=== PATIENT | male | born 1955 | race Caucasian/White ===

== ENCOUNTER → 2016-03-29 | Outpatient (CLI) | payer BC ==
[~2016-03-29] MED LIST: ASPI-266 PO; ASPI81TA28 PO; DYZ PO; INSDGI SC; LISI-725 PO; LORA-741 PO; LVMI SC; METF1000 PO; MULT-506 PO; NVLG SC; NVLGI SC; OPTIRAY 320 IV PRN; SIMV20TA5 PO; TRAZ50TA35 PO; TRIA37.5 PO
--- NOTE | 2016-03-29 11:15 | DIAGNOSTIC IMAGING REPORT ---
CT ANGIOGRAM OF THE CHEST CLINICAL HISTORY: Dilated aortic root. COMPARISON STUDY: Chest radiographs dated 11/03/2009. TECHNIQUE: Following the IV administration of 93 cc of Optiray 320, CT angiogram of the chest was performed from the thoracic inlet to the upper abdomen. Images are reviewed in the axial, sagittal, and coronal planes. 3-D MIPS images are created and assessed. IV contrast was administered without complication. FINDINGS: Thyroid: Imaged portions of the thyroid gland are normal in size and attenuation. Thoracic aorta: The thoracic aorta is normal in caliber and demonstrates standard 3-vessel arch anatomy. No dissection is seen. The arch branches are widely patent. Heart: The heart is enlarged and without pericardial effusion. The main pulmonary arteries are mildly dilated suggesting pulmonary hypertension. Lungs and pleural spaces: There is a 4 mm pulmonary nodule in the right middle lobe seen on image #216. Scattered calcified granulomas are identified. There is no airspace consolidation or pleural effusion. The trachea and central airways are clear. Mediastinum: There is no mediastinal lymphadenopathy. Neena: There are small calcified hilar lymph nodes. Axillae: There is no axillary lymphadenopathy. Upper abdomen: Partially visualized upper abdominal viscera is within normal limits. Skeletal structures: The skeletal structures are osteopenic. No lytic or blastic bony lesions are seen. Arthritic change is present in the shoulders. Chronic posttraumatic deformity is questioned the distal left clavicle. There are mild and age indeterminant superior endplate compression deformities of T2, T3, and T4. IMPRESSION: 1. Unremarkable CT angiogram of the thoracic aorta. 2. Cardiomegaly. 3. There is no airspace consolidation or pleural effusion. 4. There is a 4 mm right middle lobe pulmonary nodule. This is indeterminant but of low suspicion and can be followed if clinically warranted. See below. 5. Additional changes as above. Please refer to below summary of Fleischner criteria recommendations for follow-up of incidental CT nodules (Juaquin Draper, Guidelines for management of small pulmonary nodules detected on CT scans: A statement from the Fleischner Society, Radiology 237: [phone].) Low Risk Patient: Minimal or no smoking or other known risk factors for malignancy <=4 mm: No follow-up needed. >4-6 mm: Initial follow-up CT at 12 months; if unchanged, no further follow-up. >6-8 mm: Initial follow-up CT at 6-12 months then at 18-24 months if no change. >8 mm: Follow-up CT at \R\3, 9, 24 months, or PET and/or biopsy. High Risk Patient: History of smoking or other known risk factors <=4 mm: Follow-up at 12 months; if unchanged, no further follow-up. >4-6 mm: Initial follow-up CT at 6-12 months then at 18-24 months if no change. >6-8 mm: Initial follow-up CT at 3-6 months then at 9-12 and 24 months if no change. >8 mm: Same as low risk patient. Note: Nodule size measured as average of length and width. Ground glass or partly solid nodules may require longer follow-up to exclude indolent adenocarcinoma. Electronically signed by: Brenton Cid M.D. 03/29/2016 11:13 AM Dictated Date/Time: 03/29/2016 11:05 AM
== END | disposition home or self-care (01) ==
LOC: C.CTS 10:11
PROVIDERS: ATTEND Family Medicine
DX: I77.810 Thoracic aortic ectasia (principal); I51.7 Cardiomegaly; R91.1 Solitary pulmonary nodule

== ENCOUNTER → 2016-05-18 | Outpatient (CLI) | payer BC ==
[~2016-05-18] MED LIST changes: -OPTIRAY 320 IV PRN
[2016-05-18 12:31] LABS: ESTIMATED AVERAGE GLUCOSE 177 mg/dl; HA1C FLAG Normal (Normal)
[2016-05-18 13:42] LABS: ALKALINE PHOSPHATASE 92 U/L (45-117); ALT/SGPT 26 U/L (12-78); AST/SGOT 16 U/L (15-37); BLOOD UREA NITROGEN 13 mg/dl (7-18); BUN/CREATININE RATIO 13.9 (10-20); CALCIUM 9.2 mg/dl (8.5-10.1); CARBON DIOXIDE 26 mmol/L (21-32); CHLORIDE 106 mmol/L (98-107); CHOLESTEROL 154 mg/dl (0-200); CHOLESTEROL/HDL RATIO 3.2; CREATININE 0.93 mg/dl (0.60-1.40); GLUCOSE 111 mg/dl (70-99); HDL CHOLESTEROL 48 mg/dl; LDL CHOLESTEROL CALCULATED 87 mg/dl; POTASSIUM 3.7 mmol/L (3.5-5.1); SODIUM 139 mmol/L (136-145); TRIGLYCERIDES 96 mg/dl (0-150); VERY LOW DENSITY LIPOPROT CALC 19 mg/dl
== END | disposition home or self-care (01) ==
LOC: C.LABPVFM 08:39
PROVIDERS: ATTEND Family Medicine
DX: I10 Essential (primary) hypertension (principal); F41.9 Anxiety disorder, unspecified; E03.9 Hypothyroidism, unspecified; E11.65 Type 2 diabetes mellitus with hyperglycemia

== ENCOUNTER 2016-06-01 23:14 | Emergency (ER) | payer BC ==
[~2016-06-01] VITALS: Ht 180.3 cm; Wt 118.1 kg
[~2016-06-01 23:14] MED LIST changes: -ASPI81TA28 PO; -LVMI SC; -NVLG SC; -TRAZ50TA35 PO; -TRIA37.5 PO
[2016-06-01 23:44] VITALS: Ht 180.3 cm; Wt 118.1 kg
[2016-06-01 23:49] LABS: BASO % 0.2 %; BASO ABS # 0.02 K/uL (0-0.2); COMPLETE YES; EOS % 0.8 %; HEMATOCRIT 42.1 % (42-52); IG% 0.3 %; LYMPH % 9.8 %; LYMPH ABS # 0.99 K/uL (1.2-3.4); MEAN CELL VOLUME 83.5 fL (80-100); MEAN CORPUSCULAR HEMOGLOBIN 30.8 pg (25-34); MEAN CORPUSCULAR HGB CONC 36.8 g/dl (32-36); MONO % 8.4 %; NEUT % 80.5 %; PLATELET COUNT 182 K/uL (130-400); RED BLOOD COUNT 5.04 M/uL (4.7-6.1); WHITE BLOOD COUNT 10.14 K/uL (4.8-10.8)
[2016-06-02 00:12] LABS: BUN/CREATININE RATIO 15.5 (10-20); CALCIUM 9.1 mg/dl (8.5-10.1); CREATININE 1.1 mg/dl (0.60-1.40); POTASSIUM 3.5 mmol/L (3.5-5.1)
[2016-06-02 00:40] VITALS: BP 159/98; PULSE 74; O2SAT 98
[2016-06-02] MEDS ORDERED: ASPI81TA28 PO (00:48)
[2016-06-02] MEDS ORDERED: TRIA37.5 PO (00:48)
[2016-06-02] MEDS ORDERED: LVMI SC (00:48)
[2016-06-02] MEDS ORDERED: NVLG SC (00:48)
[2016-06-02] MEDS ORDERED: TRAZ50TA35 PO (00:51)
--- NOTE | 2016-06-02 01:33 | EMERGENCY ROOM VISIT NOTE ---
History Report prepared by Delmis: Sophie Gould Under the Supervision of: Dr. Leonel Biggs M.D. First contact with patient: 23:22 Chief Complaint: HYPOGLYCEMIA Stated Complaint: HYPOGLYCEMIA History of Present Illness The patient is a 61 year old male who presents to the Emergency Room with complaints of constant hypoglycemia beginning [employer]. The patient was in the hospital all day visiting someone upstairs. He left at 9pm and was going to get something to eat because he had not eaten since 2pm. He ended up being so confused while driving that he drove in the opposite direction than he intended. Someone called the police because the patient was driving slow and erratically. When EMS arrived, they found the patient eating icing that he had in his glove compartment. His BSG was 32 at that time. He was given D10 IV en route to the ED and states that he is feeling much better now. He reports some dizziness. The patient denies chest pain and fever. He has a history of IDDM. He was not ill prior to these events. 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 Review of Systems See HPI for pertinent positives & negatives. A total of 10 systems reviewed and were otherwise negative. Past Medical & Surgical Medical Problems: (1) Diabetes Family History Depression Heart disease Social History Smoking Status: Never Smoker Smokeless Tobacco Use: Yes Alcohol Use: occasionally Marital Status: single Housing Status: lives alone Occupation Status: employed Current/Historical Medications Scheduled Aspirin (Aspirin Ec), 81 MG PO DAILY Insulin Aspart (Novolog), 20 UNITS SC TIDM Insulin Detemir (Levemir), 50 UNITS SC QPM Lisinopril (Zestril), 20 MG PO DAILY Metformin Hcl (Glucophage), 1,000 MG PO BIDM Multivitamin (Multivitamin), 1 TABLET PO DAILY Simvastatin (Zocor), 20 MG PO QPM Trazodone Hcl (Trazodone), 50 MG PO HS Triamterene/Hctz (Dyazide 37.5MG/25MG), 1 CAP PO DAILY Allergies Coded Allergies: No Known Allergies (Unverified , 3/17/17) Physical Exam Vital Signs Date Time Temp Pulse Resp B/P Pulse Ox O2 Delivery O2 Flow Rate FiO2 06/02/16 00:40 74 20 159/98 98 Room Air 06/01/16 23:44 75 20 182/117 99 Room Air Physical Exam Constitutional: Vital signs reviewed. Hypertensive. Eyes: Pupils are equal round reactive to light. Conjunctiva are noninjected. ENT: Pharynx is clear without erythema or exudate. Mucous membranes are moist. Neck supple without meningeal signs. Respiratory: Clear to auscultation bilaterally. Breath sounds are equal bilaterally. Cardiovascular: Regular rate and rhythm. No rubs or gallops. GI: Soft, nondistended and nontender. Bowel sounds are present. Musculoskeletal: No peripheral edema. No lower extremity tenderness. Integumentary: No cyanosis. Neurological: The patient is awake and alert. No focal deficits. Psychiatric: Normal affect. Medical Decision & Procedures Laboratory Results 06/01/16 23:40 Red Blood Count 5.04, Mean Corpuscular Volume 83.5, Mean Corpuscular Hemoglobin 30.8, Mean Corpuscular Hemoglobin Concent 36.8, Mean Platelet Volume 9.0, Neutrophils (%) (Auto) 80.5, Lymphocytes (%) (Auto) 9.8, Monocytes (%) (Auto) 8.4, Eosinophils (%) (Auto) 0.8, Basophils (%) (Auto) 0.2, Neutrophils # (Auto) 8.17, Lymphocytes # (Auto) 0.99, Monocytes # (Auto) 0.85, Eosinophils # (Auto) 0.08, Basophils # (Auto) 0.02 06/01/16 23:40 Test 06/01/16 23:40 06/02/16 00:48 White Blood Count 10.14 K/uL (4.8-10.8) Red Blood Count 5.04 M/uL (4.7-6.1) Hemoglobin 15.5 g/dL (14.0-18.0) Hematocrit 42.1 % (42-52) Mean Corpuscular Volume 83.5 fL (80-100) Mean Corpuscular Hemoglobin 30.8 pg (25-34) Mean Corpuscular Hemoglobin Concent 36.8 g/dl (32-36) Platelet Count 182 K/uL (130-400) Mean Platelet Volume 9.0 fL (7.4-10.4) Neutrophils (%) (Auto) 80.5 % Lymphocytes (%) (Auto) 9.8 % Monocytes (%) (Auto) 8.4 % Eosinophils (%) (Auto) 0.8 % Basophils (%) (Auto) 0.2 % Neutrophils # (Auto) 8.17 K/uL (1.4-6.5) Lymphocytes # (Auto) 0.99 K/uL (1.2-3.4) Monocytes # (Auto) 0.85 K/uL (0.11-0.59) Eosinophils # (Auto) 0.08 K/uL (0-0.5) Basophils # (Auto) 0.02 K/uL (0-0.2) RDW Standard Deviation 38.9 fL (36.4-46.3) RDW Coefficient of Variation 12.9 % (11.5-14.5) Immature Granulocyte % (Auto) 0.3 % Immature Granulocyte # (Auto) 0.03 K/uL (0.00-0.02) Anion Gap 9.0 mmol/L (3-11) Est Creatinine Clear Calc Drug Dose 92.2 ml/min Estimated GFR () 83.5 Estimated GFR (Non- 72.1 BUN/Creatinine Ratio 15.5 (10-20) Calcium Level 9.1 mg/dl (8.5-10.1) Chemistry Specimen Hemolysis Bedside Glucose 236 mg/dl (70-99) Laboratory results as reviewed by me. ECG Indication: altered mental status Rate (beats per minute): 67 Rhythm: sinus rhythm Findings: PAC, RBBB Comparison ECG Date: 10/06/2013 Change: no significant change ED Course 2322: The patient was evaluated in room B2. A complete history and physical exam was performed. 0031: I reassessed the patient at this time. He is feeling better and resting comfortably. His BP is 159/98 and he has eaten a meal since arriving in the department. I discussed the results and treatment plan with the patient. I answered all pertaining questions that he had. He expressed understanding and verbalized agreement. The patient will be discharged home. Medical Decision This is a 61-year-old male who presents with hypoglycemia. I did perform a limited focused review of portions of the patient's old chart on the electronic medical record. The patient has had no recent pertinent visits to this hospital. I did evaluate the patient as noted above. The patient was placed on a continuous environmental monitoring specialist. The patient is neurologically intact. He is hypertensive but states that his blood pressure always goes up when he chews tobacco. He states he has had the same problem when he went to his doctor's office and was chewing tobacco. The chewing tobacco was removed from his mouth. He was not involved in a motor vehicle collision. EMS stated that there was no damage to his car. He was found driving erratically by the police. His blood sugar was 32 on EMS arrival. He was given a meal tray here. I did order and personally review the patient's 12-lead EKG as described above. I did order and review the patient's blood work as noted in the electronic medical record. His blood sugar did improve. He has no complaints and was therefore discharged home. He will eat regular meals. He will follow with his doctor. His blood pressure also did improve. Impression Primary Impression: Hypoglycemia Additional Impression: Elevated blood pressure reading Scribe Attestation The scribe's documentation has been prepared under my direct and personally reviewed by me in its entirety. I confirm that the note above accurately reflects all work, treatment, procedures, and medical decision making performed by me. Departure Information Dispostion Home / Self-Care Referrals Edith Salgado M.D. (PCP) Forms HOME CARE DOCUMENTATION FORM, IMPORTANT VISIT INFORMATION, WORK / SCHOOL INSTRUCTIONS Patient Instructions ED Diabetes Hypoglycemia Insulin React, My [facility] Additional Instructions You have been examined and treated today on an emergency basis only. This is not a substitute for, or an effort to provide, complete comprehensive medical care. It is impossible to recognize and treat all injuries or illnesses in a single emergency department visit. It is therefore important that you follow up closely with your physician. Call as soon as possible for an appointment. Return for worsening symptoms or if you develop fever, vomiting, chest pain, shortness breath or any other concerning symptoms. Problem Qualifiers
== END 2016-06-02 01:00 | disposition home or self-care (01) ==
LOC: EDBD 23:14 → C.EDB 23:17
DX: E11.649 Type 2 diabetes mellitus with hypoglycemia without coma (principal); R03.0 Elevated blood-pressure reading, without diagnosis of hypertension; Z79.82 Long term (current) use of aspirin; Z79.4 Long term (current) use of insulin

== ENCOUNTER → 2016-10-20 | Outpatient (CLI) | payer BC ==
[~2016-10-20] MED LIST changes: -ASPI-266 PO; +ASPI81TA28 PO; -DYZ PO; -INSDGI SC; -LORA-741 PO; +LVMI SC; +NVLG SC; -NVLGI SC; +TRAZ50TA35 PO; +TRIA37.5 PO
[2016-10-20 13:25] LABS: ALT/SGPT 25 U/L (12-78); AST/SGOT 11 U/L (15-37); BLOOD UREA NITROGEN 14 mg/dl (7-18); BUN/CREATININE RATIO 13.7 (10-20); CALCIUM 8.8 mg/dl (8.5-10.1); CARBON DIOXIDE 28 mmol/L (21-32); CHLORIDE 105 mmol/L (98-107); GLUCOSE 166 mg/dl (70-99); POTASSIUM 3.6 mmol/L (3.5-5.1); SODIUM 139 mmol/L (136-145)
[2016-10-20 13:30] LABS: ESTIMATED AVERAGE GLUCOSE 229 mg/dl; HA1C FLAG Normal (Normal)
[2016-10-20 13:36] LABS: ALB/GLOB RATIO 1.1 (0.9-2); ALKALINE PHOSPHATASE 110 U/L (45-117); CHOLESTEROL 131 mg/dl (0-200); CHOLESTEROL/HDL RATIO 2.8; HDL CHOLESTEROL 46 mg/dl; LDL CHOLESTEROL CALCULATED 68 mg/dl; TRIGLYCERIDES 83 mg/dl (0-150); VERY LOW DENSITY LIPOPROT CALC 17 mg/dl
== END | disposition home or self-care (01) ==
LOC: C.LABPVFM 10:23
PROVIDERS: ATTEND Nurse Practitioner Adult Health
DX: E11.65 Type 2 diabetes mellitus with hyperglycemia (principal); Z79.4 Long term (current) use of insulin; I10 Essential (primary) hypertension; F41.9 Anxiety disorder, unspecified; E03.9 Hypothyroidism, unspecified; G47.00 Insomnia, unspecified

== ENCOUNTER → 2017-03-26 | Outpatient (CLI) | payer BC ==
[2017-03-26 13:09] LABS: HEMOGLOBIN A1C 9.4 % (4.5-5.6)
[2017-03-26 13:34] LABS: ALBUMIN 3.9 gm/dl (3.4-5.0); ALKALINE PHOSPHATASE 108 U/L (45-117); ALT/SGPT 28 U/L (12-78); AST/SGOT 11 U/L (15-37); BLOOD UREA NITROGEN 21 mg/dl (7-18); CALCIUM 9.9 mg/dl (8.5-10.1); CARBON DIOXIDE 28 mmol/L (21-32); CREATININE 1.28 mg/dl (0.60-1.40); GLUCOSE 251 mg/dl (70-99); POTASSIUM 3.7 mmol/L (3.5-5.1); SODIUM 136 mmol/L (136-145)
== END | disposition home or self-care (01) ==
LOC: C.LABPVFM 11:12
PROVIDERS: ATTEND Family Medicine
DX: E11.9 Type 2 diabetes mellitus without complications (principal); Z79.4 Long term (current) use of insulin; E03.9 Hypothyroidism, unspecified; I10 Essential (primary) hypertension; E78.5 Hyperlipidemia, unspecified; G47.00 Insomnia, unspecified

== ENCOUNTER → 2017-04-02 | Outpatient (CLI) | payer BC ==
[~2017-04-02] MED LIST changes: +OPTIRAY 320 IV PRN
--- NOTE | 2017-04-02 11:29 | DIAGNOSTIC IMAGING REPORT ---
(CHEST) THORAX WITH CT DOSE: 650.52 mGy.cm HISTORY: Pulmonary nodule R91.1 Pulmonary [id number] TECHNIQUE: Multiaxial CT images of the chest were performed following the intravenous administration of contrast. A dose lowering technique was utilized adhering to the principles of ALARA. COMPARISON: 03/29/2016 FINDINGS: Unchanged exam from the prior study. Unchanged 4 mm pulmonary nodule right middle lobe. No new or interval finding. No significant hilar or mediastinal kajal pathology. IMPRESSION: Unchanged exam with unchanging nodularity right middle lobe. Routine follow-up is indicated. Please refer to below summary of Fleischner criteria recommendations for follow-up of incidental CT nodules (Juaquin Draper, Guidelines for management of small pulmonary nodules detected on CT scans: A statement from the Fleischner Society, Radiology 237: [phone].) SOLID NODULES Solitary nodule size: <6 mm * low risk patients: no follow-up needed * high risk patients: optional CT at 12 months Solitary nodule size: 6-8 mm * low risk patients: follow-up at 6-12 months, then consider further follow-up at 18-24 months * high risk patients: initial follow-up CT at 6-12 months and then at 18-24 months if no change Solitary nodule size: >8 mm * either low or high risk patients - consider follow-up CT at 3 months, and/or CT-PET, and/or biopsy Multiple nodules size: <6 mm * low risk patients: no routine follow-up * high risk patients: optional CT at 12 months Multiple nodules size: 6-8 mm * low risk patients: follow-up at 3-6 months, then consider further follow-up at 18-24 months * high risk patients: follow-up at 3-6 months, then at 18-24 months if no change Multiple nodules size: >8 mm * low risk patients: follow-up at 3-6 months, then consider further follow-up at 18-24 months * high risk patients: follow-up at 3-6 months, then at 18-24 months if no change Note: newly detected indeterminate nodule in persons 35 years of age or older. * low risk patients: minimal or absent history of smoking and/or other known risk factors * high risk patients: history of smoking or of other known risk factors (e.g. first degree relative with lung cancer, or exposure to asbestos, radon, uranium) * if a nodule up to 8 mm is partly solid or is ground glass further follow-up is required after 24 months to exclude possible slow growing adenocarcinoma (RYNE) SUBSOLID NODULES Solitary pure ground-glass nodule * nodule size <6 mm - no CT follow-up required * nodule size >=6 mm - follow-up CT at 6-12 months, then every 2 years until 5 years Solitary part-solid nodule * nodule size <6 mm - no CT follow-up required * nodule size >=6 mm - follow-up CT at 3-6 months. If unchanged, and solid component remains <6 mm, then annual follow-up for 5 years Multiple subsolid nodules * nodule size <6 mm - follow-up CT at 3-6 months, consider further follow-up at 2 and 4 years if stable * nodule size >=6 mm - follow-up CT at 3-6 months, subsequent management based on the most suspicious nodule(s) The above report was generated using voice recognition software. It may contain grammatical, syntax or spelling errors. Electronically signed by: Geraldo Leon M.D. 04/02/2017 11:27 AM Dictated Date/Time: 04/02/2017 11:21 AM
== END | disposition home or self-care (01) ==
LOC: C.CTS 11:03
PROVIDERS: ATTEND Family Medicine
DX: R91.1 Solitary pulmonary nodule (principal)

== ENCOUNTER → 2017-04-04 | Outpatient (CLI) | payer BC ==
[~2017-04-04] MED LIST changes: -OPTIRAY 320 IV PRN
[2017-04-04 13:17] LABS: BLOOD UREA NITROGEN 18 mg/dl (7-18); CALCIUM 9.3 mg/dl (8.5-10.1); CARBON DIOXIDE 22 mmol/L (21-32); CREATININE 1.28 mg/dl (0.60-1.40); GLUCOSE 380 mg/dl (70-99); POTASSIUM 3.9 mmol/L (3.5-5.1); SODIUM 137 mmol/L (136-145)
== END | disposition home or self-care (01) ==
LOC: C.LABPVFM 10:13
PROVIDERS: ATTEND Family Medicine
DX: E11.9 Type 2 diabetes mellitus without complications (principal); Z79.4 Long term (current) use of insulin

== ENCOUNTER 2020-07-16 13:51 | Inpatient (IN) ==
--- NOTE | 2020-07-16 15:05 | XRay Report ---
XR knee RT 3V CLINICAL HISTORY: Right Knee Pain [place] view 3, D07 COMPARISON STUDY: None. FINDINGS: Extensive prepatellar soft tissue swelling. No soft tissue gas identified. Trace knee effus ion. No fracture or dislocation. Tiny tricompartmental marginal osteophytes. Cartilage spaces are joshua ntained for age. IMPRESSION: 1. Extensive prepatellar soft tissue swelling. This could represent a prepatellar bursitis or recent trauma. 2. Trace knee effusion. 3. No fractures. ACT 112: Negative or not required by law. Electronically signed by: José Miguel Aldridge M.D. 07/16/2020 3:04 PM
[2020-07-16] MEDS ORDERED: cefTRIAXone SODIUM 2,000 MG/70 ML BAG IV STA (15:38)
[2020-07-16] MEDS ORDERED: SODIUM CHLORIDE 0.9% 1000ML 1,000 ML IV SCH (15:45)
[2020-07-16 16:26] LABS: Basophils # (auto) 0.02 K/uL (0-0.2); Basophils % (auto) 0.2 %; Eosinophils # (auto) 0.03 K/uL (0-0.5); Eosinophils % (auto) 0.3 %; Hematocrit (blood only) 40.2 % (42-52); Hemoglobin 14.3 g/dL (14.0-18.0); Immature Granulocytes # (auto) 0.02 K/uL (0.00-0.02); Immature Granulocytes % (auto) 0.2 %; Lymphocytes # (auto) 1.45 K/uL (1.2-3.4); Lymphocytes % (auto) 15.7 %; Mean Corpuscular Hemoglobin 30.8 pg (25-34); Mean Corpuscular Hgb Conc 35.6 g/dL (32-36); Mean Corpuscular Volume 86.6 fL (80-100); Mean Platelet Volume 9.5 fL (7.4-10.4); Monocytes # (auto) 0.76 K/uL (0.11-0.59); Monocytes % (auto) 8.2 %; Neutrophils # (auto) 6.95 K/uL (1.4-6.5); Neutrophils % (auto) 75.4 %; Platelet Count 256 K/uL (130-400); RDW Coefficient of Variation 12.5 % (11.5-14.5); RDW Standard Deviation 39.8 fL (36.4-46.3); Red Blood Count 4.64 M/uL (4.7-6.1); White Blood Count 9.23 K/uL (4.8-10.8)
[2020-07-16 16:55] LABS: BUN Creatinine Ratio 14.1 (10-20); C Reactive Protein 18.1 mg/dl (0-0.29); Creatinine Clr Calc Pharmacy 71.9 ml/min; Est GFR (African American) 68.9; Est GFR (Non-African American) 59.5; Potassium 3.6 mmol/L (3.5-5.1)
[2020-07-16] MEDS ORDERED: NovoLIN-R INSULIN PER UNIT CHARGE IV STA (16:56)
[2020-07-16 17:10] LABS: Beta-Hydroxybutyrate 8.19 mg/dl (0.2-2.81)
[2020-07-16] MEDS ORDERED: VANCOMYCIN HCL 2,000 MG in SODIUM CHLORIDE 0.9% 500 ML IV ONE (17:27)
[2020-07-16] MEDS ORDERED: VANCOMYCIN CONSULT ACTIVE PRN (17:27)
--- NOTE | 2020-07-16 17:51 | Emergency Department Note ---
Impression & Plan Septic prepatellar bursitis, Cellulitis, Hyperglycemia, Tobacco abuse ED Provider Note INFORMANT: Patient ED PROVIDER(S): Obed Lucia MD CHIEF COMPLAINT: Right knee injury PLAN: Disposition: Admitted Condition: Good Outpatient prescription management: none Referral: None MEDICAL DECISION MAKING: Patient presented with complains of right knee injury. He had findings of cellulitis and likely prepatellar bursitis on examination. Blood work was obtained. X-ray imaging showed a significant amount of soft tissue swelling. His CBC was unremarkable but his inflammatory markers reveal elevated. The patient had marked hyperglycemia. He had pseudohyponatremia. Patient was given IV insulin. IV Rocephin was ordered as well as IV vancomycin. I did consult with Dr. Ballesteros of [facility]. He evaluated the patient in the ER. He would like medicine to admit the patient due to the severe hyperglycemia. He agreed to the IV antibiotics. He plans to take the patient to the OR tomorrow for definitive treatment. Consultation was made with the [facility] list service. Patient was evaluated in ER for further management. Triage Nursing notes reviewed and agree them. Vital Signs: reviewed and remarkable for borderline tachycardia Differential diagnosis: Cellulitis, abscess, MRSA infection, DVT, necrotizing fasciitis, dermatitis, drug eruption, allergic reaction, as well as other pathologies. Diagnostics interpreted by me: ECG: none Cardiac Monitoring: Cardiac monitoring ordered by me: The patient was placed on continuous cardiac monitoring and observed. It revealed a normal sinus rhythm at 112 beats per minute without ectopy or evidence of dysrhythmia. Imaging studies: X-ray ridging of the right knee reveals significant soft tissue swelling. No fracture or dislocation. HPI: The patient is a 65 year old male who presents to the Emergency Room with complaints of right knee injury. This started about 4 days ago or was bit by a spider. He had significant swelling and redness of the anterior aspect of the right knee. Prior history of left knee replacement but no surgery on the right knee. The patient is unsure if he fell. The patient also notes the following associated symptoms, swelling, redness, pain. The patient has taken no medica tion for relieving factors. Current pain is rated as 6/10. Pt denies LOC, headache, fevers, chills, diaphoresis, visual changes, neck pain, chest pain, breathing difficulties, nausea, vomiting, abdominal pain, back pain, melena, hematochezia, urinary symptoms, numbness, weakness, lymphadenopathy, rash, or other complaints. ROS: See above HPI for pertinent positives & negatives. A total of 10 systems reviewed and were otherwise negative. PAST MEDICAL HISTORY:See Below , diabetes PAST SURGICAL HISTORY:See Below, FAMILY HISTORY:See Below SOCIAL HISTORY:See Below, chews tobacco HOME MEDICATIONS:See Below ALLERGIES:See Below VITALS:See Below PHYSICAL EXAMINATION: GENERAL: Awake, alert, mildly uncomfortable-appearing, in no distress HENT: Normocephalic, atraumatic. Oropharynx unremarkable. EYES: Normal conjunctiva. Sclera non-icteric. NECK: Inspection normal. Non-tender. Supple. No nuchal rigidity. FROM. No masses. RESPIRATORY: Clear to auscultation. No wheezes. No rales. Normal respiratory effort. CARDIAC: Borderline tachycardic rate. Normal rhythm. No murmurs. No rubs. Extremities warm and well perfused. Pulses equal. No JVD. GI: Soft, non-distended. No tenderness to palpation. No rebound or guarding. No masses. MUSCULOSKELETAL: There is marked swelling, redness, and tenderness to the anterior aspect of the right knee concerning for cellulitis and possible prepatellar bursitis. Calves are equal size bilaterally and non-tender. No edema. No discoloration. NEURO: Normal sensorium. No sensory or motor deficits noted. SKIN: No rash or jaundice noted. Obed Lucia MD Past Med/Surg History Medical History (Updated 07/16/20 @ 17:54 by Obed Lucia MD) Diabetes History of prostate cancer HTN (hypertension) Surgical History (Updated 07/18/19 @ 08:10 by SATNAM Suazo) History of left knee surgery History of shoulder surgery Left Family History (Updated 07/18/19 @ 08:12 by SATNAM Suazo) Mother Cancer Grandmother (Paternal) Stroke Grandfather (Paternal) Stroke Other Myocardial infarction Denies family history of Ovarian cancer Prostate cancer Breast cancer Colorectal cancer Social History (Updated 10/20/19 @ 10:44 by SATNAM Angel) Smoking Status: Never smoker Second Hand Exposure: No; Hx Alcohol Use: No Hx Substance Use: No marital status: Current Living Situation: Alone current occupational status: employed Feels Safe at Home: Yes Childhood Exposure to Second-Hand Smoke: No caffeine: Yes (iced tea ) Dental Care, Regularly: No Physical Activity Frequency: 1-2 Times per Week Seatbelt Use: always Sunscreen Use: No Allergies Allergies Allergy/AdvReac Type Severity Reaction Status Date / Time No Known Allergies Allergy Unverified 10/20/19 10:41 Home Meds Previous Rx's Medication Instructions Recorded aspirin 81 mg tablet,delayed 81 mg PO DAILY #30 tab 07/09/19 release multivitamin 1 tab PO DAILY #30 tab 07/09/19 clobetasol 0.05 % topical cream 1 appln TOP BID 14 Days #60 gm 07/18/19 fluocinolone 0.01 % scalp oil and See Rx Instructions TOP .COMPLEX 07/18/19 shower cap #118.28 ml blood sugar diagnostic #10 ea 08/19/19 levothyroxine 125 mcg tablet 125 mcg PO DAILY #30 tab 10/20/19 lisinopril 40 mg tablet 40 mg PO DAILY #30 tab 10/20/19 metformin 500 mg tablet,extended 500 mg PO BID #60 tab 10/20/19 release 24hr metoprolol succinate 50 mg capsule 50 mg PO DAILY #30 ea 10/20/19 sprinkle, ext. release 24 hr simvastatin 40 mg tablet 40 mg PO QPM #30 tab 10/20/19 trazodone 50 mg tablet See Rx Instructions .ROUTE 10/20/19 .COMPLEX #30 tab triamterene 37.5 1 cap PO DAILY #30 cap 10/20/19 mg-hydrochlorothiazide 25 mg capsule insulin NPH isoph U-100 human 100 See Rx Instructions SUBCUT QAM #20 03/04/20 unit/mL subcutaneous suspension ml insulin regular human 100 unit/mL 30 unit SUBCUT BID #20 ml 03/04/20 injection solution sodium,potassium,mag sulfates 17.5 See Rx Instructions PO .COMPLEX 06/22/20 gram-3.13 gram-1.6 gram oral soln #354 ml Results & Data (ED) Vital Signs Vital Signs - 24 hr 07/16/20 14:05 07/16/20 16:00 Temperature 36.5 C Temperature Source Oral Pulse Rate 122 H Pulse Rate [Apical] 112 H Pulse Rhythm Regular Pulse Strength Normal Respiratory Rate 20 18 Respiratory Effort / Characteristics Non-Labored Respiratory Depth Normal Respiratory Pattern Regular Blood Pressure [Left Arm] 148/96 H Blood Pressure Mean [Left Arm] 113 Blood Pressure Position Sitting Pulse Oximetry 95 96 Oxygen Delivery Method Room Air Room Air Sepsis Recent Fever Within 48 Hours No Sepsis New/Unexplained Change in Mental Status No Sepsis Action Taken by Nursing No Action Required Laboratory Data Result diagrams: 07/16/20 16:06 07/16/20 16:06 Lab Results 07/16/20 07/16/20 07/16/20 Range/Units 16:06 16:06 16:06 WBC 9.23 (4.8-10.8) K/uL RBC 4.64 L (4.7-6.1) M/uL Hgb 14.3 (14.0-18.0) g/dL Hct 40.2 L (42-52) % MCV 86.6 (80-100) fL MCH 30.8 (25-34) pg MCHC 35.6 (32-36) g/dL RDW Std Deviation 39.8 (36.4-46.3) fL RDW Coeff of Robyn 12.5 (11.5-14.5) % Plt Count 256 (130-400) K/uL MPV 9.5 (7.4-10.4) fL Immature Gran % (Auto) 0.2 % Neut % (Auto) 75.4 % Lymph % (Auto) 15.7 % [place] % (Auto) 8.2 % Eos % (Auto) 0.3 % Baso % (Auto) 0.2 % Neut # (Auto) 6.95 H (1.4-6.5) K/uL Lymph # (Auto) 1.45 (1.2-3.4) K/uL [place] # (Auto) 0.76 H (0.11-0.59) K/uL Eos # (Auto) 0.03 (0-0.5) K/uL Baso # (Auto) 0.02 (0-0.2) K/uL Immature Gran # (Auto) 0.02 (0.00-0.02) K/uL ESR 72 H (0-20) mm/hr Sodium 128 L (136-145) mmol/L Potassium 3.6 (3.5-5.1) mmol/L Chloride 92 L (98-107) mmol/L Carbon Dioxide 32 (21-32) mmol/L Anion Gap 4.0 (3-11) BUN 18 (7-18) mg/dl Creatinine 1.26 (0.6-1.4) mg/dl Est Cr Clr Drug Dosing 71.9 ml/min Est GFR ( Amer) 68.9 Est GFR (Non-Af Amer) 59.5 BUN/Creatinine Ratio 14.1 (10-20) Glucose 628 H* (70-99) mg/dl Calcium 9.0 (8.5-10.1) mg/dl C-Reactive Protein 18.10 H (0-0.29) mg/dl Beta-Hydroxybutyric Acd 8.19 H (0.2-2.81) mg/dl Administered Medications Sodium Chloride (Nss 1000ml) 1,000 mls @ 125 mls/hr IV .Q8H JOSELITO Stop: 07/16/20 23:44 Last Admin: 07/16/20 16:28 Dose: 125 mls/hr Documented by: [id number] Discontinued Medications Ceftriaxone Sodium (Rocephin) 2,000 mg in 70 mls @ 140 mls/hr IV NOW STA Stop: 07/16/20 16:07 Last Admin: 07/16/20 16:28 Dose: 140 mls/hr Documented by: [id number] Insulin Human Regular (Novolin-R Insulin Per Unit Charge) 10 units IV NOW STA Stop: 07/16/20 16:57 Last Admin: 07/16/20 17:03 Dose: 10 units Documented by: [id number] Cosigned by: [id number] Imaging Data Radiologist's Impression: Knee X-Ray 07/16/20 14:08 XR knee RT 3V CLINICAL HISTORY: Right Knee Pain [place] view 3, D07 COMPARISON STUDY: None. FINDINGS: Extensive prepatellar soft tissue swelling. No soft tissue gas identified. Trace knee effusion. No fracture or dislocation. Tiny tricompartmental marginal osteophytes. Cartilage spaces are maintained for age. IMPRESSION: 1. Extensive prepatellar soft tissue swelling. This could represent a prepatellar bursitis or recent trauma. 2. Trace knee effusion. 3. No fractures. ACT 112: Negative or not required by law. Electronically signed by: José Miguel Aldridge M.D. 07/16/2020 3:04 PM Discharge Plan Visit Data Chief Complaint: Knee Injury/Pain Stated Complaint: LEFT KNEE SWOLLEN, UNKNOWN SOURCE ED Provider: Obed Lucia Discharge Problem: Septic prepatellar bursitis, Cellulitis, Hyperglycemia, Tobacco abuse Forms Stand Alone Forms: My [facility] [employer] Prescriptions Prescriptions: No Action aspirin 81 mg tablet,delayed release (DR/EC) 81 mg PO DAILY Qty: 30 RF: 2 multivitamin Tablet 1 tab PO DAILY Qty: 30 RF: 0 (DME) blood sugar diagnostic [Blood Glucose Test] Strip See Rx Instructions .ROUTE .MEDSUPPLY Qty: 10 RF: 0 Novolin R Regular U-100 Insuln 100 unit/mL solution 30 unit subcut BID Qty: 20 RF: 5 Novolin N NPH U-100 Insulin 100 unit/mL suspension See Rx Instructions subcut QAM Qty: 20 RF: 5 Suprep Bowel Prep Kit 17.5-3.13-1.6 gram recon soln See Rx Instructions PO .COMPLEX Qty: 354 RF: 0 fluocinolone and shower cap 0.01 % oil See Rx Instructions TOP .COMPLEX Qty: 118.28 RF: 2 clobetasol 0.05 % cream 1 appln TOP BID 14 Days Qty: 60 RF: 1 levothyroxine 125 mcg tablet 125 mcg PO DAILY Qty: 30 RF: 5 lisinopril 40 mg tablet 40 mg PO DAILY Qty: 30 RF: 5 metformin 500 mg tablet extended release 24hr 500 mg PO BID Qty: 60 RF: 5 simvastatin 40 mg tablet 40 mg PO QPM Qty: 30 RF: 5 trazodone 50 mg tablet See Rx Instructions .ROUTE .COMPLEX Qty: 30 RF: 5 triamterene-hydrochlorothiazid 37.5-25 mg capsule 1 cap PO DAILY Qty: 30 RF: 5 metoprolol succinate 50 mg capsule,sprinkle,ER 24hr 50 mg PO DAILY Qty: 30 RF: 5
[2020-07-16] MEDS ORDERED: METOPROLOL TARTRATE 50 MG TAB PO STA (19:27)
[2020-07-16] MEDS ORDERED: METOPROLOL TARTRATE 1 MG/ML VIAL IV STA (19:27)
[2020-07-16 19:54] LABS: Influenza A virus by PCR Negative (Neg); Influenza B virus by PCR Negative (Neg); RSV by PCR Negative (Neg); SARS CoV2 RNA(COVID-19) InHosp NEGATIVE (Negative)
--- NOTE | 2020-07-16 20:17 | History & Physical Report ---
Date of Service July 16, 2020 Assessment & Plan (1) Septic arthritis: Lars Kumar is a 65-year-old with PMH significant for diabetes, tobacco use, hypothyroidism; who presents to the ED for concerns of right knee pain/swelling over the last several days. Septic arthritis: -Concern for septic arthritis versus septic cellulitis given the appearance of the overlying tissue of the right knee -Elevated ESR, CRP on admission; no elevation of WBCs -XR right knee demonstrating extensive prepatellar effusion -CT right knee demonstrating complex enhancing prepatellar fluid collection with thick septations; concerning for complex bursitis versus abscess -Ortho consulted: Consideration of OR in a.m. -Continue vancomycin, with addition of cefepime given patient's history of diabetes -Blood cultures drawn prior to antibiotics Hyperglycemia: -Glucose on admission of 628 -Beta hydroxybutyrate 8.19 -No anion gap making DKA unlikely at this point time; poor glucose control potentially secondary to infection as above -Received 10 units IV insulin in ED -Hold home Metformin -A1c in a.m. -Sliding scale insulin at this point time Hyponatremia: -Na 128 on admission; with correction for hyperglycemia Na 136 -This is likely secondary to poor glucose control as above -Continue to monitor Atrial fibrillation: -EKG in the ED demonstrating A. fib with RVR and frequent PVCs -No known history of arrhythmias -Lopressor 5 mg IV every 5 minutes as needed for tachycardia -Continue to observe on telemetry Diet: N.p.o. in case of procedure in a.m. CODE STATUS: Full code DVT prophylaxis: Heparin [facility] (2) Hyperglycemia: (3) Hyponatremia: (4) Atrial fibrillation: History of Present Illness Primary Care Provider: Jg Valdez DO Lars Kumar is a 65-year-old with PMH significant for diabetes, smokeless tobacco use, hypothyroidism; who presents to the ED for concerns of right knee pain/swelling over the last several days. First noticed the swelling and discomfort of his knee about 4 days ago, at that time he was walking to his woodpile when he tripped and hit his knee against something in the path. As the swelling and redness and pain continued he was discussing with friends and they thought maybe he was bitten by a spider. However he did not notice any bites or recall feeling a bite. As the swelling continued to enlarge and become inc reasingly more painful decided to try ibuprofen 800 mg multiple times a day, Tylenol multiple times a day however neither 1 of these was effective in improving the swelling or the pain. As result of this presented to the ER. Allergies Allergy/AdvReac Type Severity Reaction Status Date / Time No Known Allergies Allergy Unverified 07/16/20 18:14 Home Medications Medication Instructions Recorded Confirmed Type aspirin 81 mg tablet,delayed 81 mg PO DAILY #30 tab 07/09/19 07/16/20 Rx release blood sugar diagnostic #10 ea 08/19/19 10/20/19 Rx levothyroxine 125 mcg tablet 125 mcg PO DAILY #30 tab 10/20/19 07/16/20 Rx metformin 500 mg tablet,extended 500 mg PO BID #60 tab 10/20/19 07/16/20 Rx release 24hr metoprolol succinate 50 mg capsule 50 mg PO DAILY #30 ea 10/20/19 07/16/20 Rx sprinkle, ext. release 24 hr insulin NPH isoph U-100 human 100 See Rx Instructions SUBCUT QAM #20 03/04/20 07/16/20 Rx unit/mL subcutaneous suspension ml insulin regular human 100 unit/mL 30 unit SUBCUT BID #20 ml 03/04/20 07/16/20 Rx injection solution trazodone 50 mg PO HS PRN 07/16/20 07/16/20 History Past Med/Surg History Medical History Atrial fibrillation Cellulitis Diabetes History of alcoholism History of prostate cancer HTN (hypertension) Hyperlipidemia Hypothyroidism Insomnia Seborrheic dermatitis of scalp Septic arthritis Septic prepatellar bursitis Tobacco abuse Vitamin D deficiency Surgical History History of left knee surgery History of shoulder surgery Left Family History Mother Cancer Grandmother (Paternal) Stroke Grandfather (Paternal) Stroke Other Myocardial infarction Denies family history of Ovarian cancer Prostate cancer Breast cancer Colorectal cancer Social History (Updated 10/20/19 @ 10:44 by SATNAM Angel) Smoking Status: Former smoker Second Hand Exposure: No; Do You Dip or Chew Tobacco: Yes; Tobacco Cessation Education Requested by Patient: No Hx Alcohol Use: Yes Hx Substance Use: No Preferred Language: Serbian Communication Ability: Effective 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 Beliefs That Will Affect Care: None marital status: Current Living Situation: Alone current occupational status: employed Other Information That Helps Us Care for You: No Feels Safe at Home: Yes Safety Concerns: Feels Safe At This Time Childhood Exposure to Second-Hand Smoke: No caffeine: Yes (iced tea ) Dental Care, Regularly: No Physical Activity Frequency: 1-2 Times per Week Seatbelt Use: always Sunscreen Use: No Assistive Devices: None Review of Systems Review of Systems: All systems reviewed & are unremarkable except as noted in HPI & below Physical Exam Constitutional: WD/WN, vitals as above Eyes: PERRL, conjunctivae normal, anicteric sclerae Respiratory: normal respiratory effort, lungs clear to auscultation Auscultation: no crackles, no rales, no rhonchi and no wheezes Cardiovascular: Rate/Rhythm: regular rate and regular rhythm Heart Sounds: no gallop, no murmur and no cardiac rub Vessels: normal peripheral pulses; no JVD Extremities: no edema Gastrointestinal (Abdomen): Inspection/Auscultation: normal bowel sounds; abdomen not distended Percussion/Palpation: abdomen soft; abdomen nontender and no guarding Musculoskeletal: Knee: + knee abnormal to inspection, + effusion (extra- articular) and + skin erythema Neurologic: PERRL, EOMI, accommodation nl, no face palsy, no dysarthria CN's II-XI intact bilaterally and moves all extremities Psychiatric: Orientation: alert and oriented x 3 Results & Data Results & Data ([facility]) Vital Signs (Past 12 Hours) Vital Signs Temp Pulse Pulse Resp BP BP Pulse Ox 07/16/20 19:55 115 H 16 128/99 96 07/16/20 19:00 115 H 18 160/90 H 98 07/16/20 18:30 115 H 15 92 07/16/20 18:20 114 H 23 94 07/16/20 18:10 118 H 15 07/16/20 18:00 127 H 22 157/112 H 98 07/16/20 17:50 105 H 16 95 07/16/20 17:43 109 H 163/96 H 91 07/16/20 17:40 114 H 19 98 07/16/20 17:30 118 H 21 94 07/16/20 17:20 116 H 14 96 07/16/20 17:10 125 H 17 95 07/16/20 17:00 129 H 18 94 07/16/20 16:50 114 H 21 93 07/16/20 16:40 119 H 13 95 07/16/20 16:38 132 H 14 95 07/16/20 16:29 119 H 22 148/106 H 94 07/16/20 16:00 112 H 18 148/96 H 96 07/16/20 14:05 36.5 C 122 H 20 95 Laboratory Results 07/16/20 07/16/20 07/16/20 Range/Units 18:49 18:49 16:06 WBC (4.8-10.8) K/uL RBC (4.7-6.1) M/uL Hgb (14.0-18.0) g/dL Hct (42-52) % MCV (80-100) fL MCH (25-34) pg MCHC (32-36) g/dL RDW Std Deviation (36.4-46.3) fL RDW Coeff of Robyn (11.5-14.5) % Plt Count (130-400) K/uL MPV (7.4-10.4) fL Immature Gran % (Auto) % Neut % (Auto) % Lymph % (Auto) % [place] % (Auto) % Eos % (Auto) % Baso % (Auto) % Neut # (Auto) (1.4-6.5) K/uL Lymph # (Auto) (1.2-3.4) K/uL [place] # (Auto) (0.11-0.59) K/uL Eos # (Auto) (0-0.5) K/uL Baso # (Auto) (0-0.2) K/uL Immature Gran # (Auto) (0.00-0.02) K/uL ESR (0-20) mm/hr Sodium (136-145) mmol/L Potassium (3.5-5.1) mmol/L Chloride (98-107) mmol/L Carbon Dioxide (21-32) mmol/L Anion Gap (3-11) BUN (7-18) mg/dl Creatinine (0.6-1.4) mg/dl Est Cr Clr Drug Dosing ml/min Est GFR ( Amer) Est GFR (Non-Af Amer) BUN/Creatinine Ratio (10-20) Glucose (70-99) mg/dl Uric Acid 4.2 (2.6-7.2) mg/dl Calcium (8.5-10.1) mg/dl C-Reactive Protein (0-0.29) mg/dl Beta-Hydroxybutyric Acd (0.2-2.81) mg/dl COVID-19 Eval Order CovFluRsv at [facility] SARS-CoV-2 (PCR) NEGATIVE (Negative) Influenza Type A (PCR) Negative (Neg) Influenza Type B (PCR) Negative (Neg) RSV (RT-PCR) Negative (Neg) 07/16/20 07/16/20 07/16/20 Range/Units 16:06 16:06 16:06 WBC 9.23 (4.8-10.8) K/uL RBC 4.64 L (4.7-6.1) M/uL Hgb 14.3 (14.0-18.0) g/dL Hct 40.2 L (42-52) % MCV 86.6 (80-100) fL MCH 30.8 (25-34) pg MCHC 35.6 (32-36) g/dL RDW Std Deviation 39.8 (36.4-46.3) fL RDW Coeff of Robyn 12.5 (11.5-14.5) % Plt Count 256 (130-400) K/uL MPV 9.5 (7.4-10.4) fL Immature Gran % (Auto) 0.2 % Neut % (Auto) 75.4 % Lymph % (Auto) 15.7 % [place] % (Auto) 8.2 % Eos % (Auto) 0.3 % Baso % (Auto) 0.2 % Neut # (Auto) 6.95 H (1.4-6.5) K/uL Lymph # (Auto) 1.45 (1.2-3.4) K/uL [place] # (Auto) 0.76 H (0.11-0.59) K/uL Eos # (Auto) 0.03 (0-0.5) K/uL Baso # (Auto) 0.02 (0-0.2) K/uL Immature Gran # (Auto) 0.02 (0.00-0.02) K/uL ESR 72 H (0-20) mm/hr Sodium 128 L (136-145) mmol/L Potassium 3.6 (3.5-5.1) mmol/L Chloride 92 L (98-107) mmol/L Carbon Dioxide 32 (21-32) mmol/L Anion Gap 4.0 (3-11) BUN 18 (7-18) mg/dl Creatinine 1.26 (0.6-1.4) mg/dl Est Cr Clr Drug Dosing 71.9 ml/min Est GFR ( Amer) 68.9 Est GFR (Non-Af Amer) 59.5 BUN/Creatinine Ratio 14.1 (10-20) Glucose 628 H* (70-99) mg/dl Uric Acid (2.6-7.2) mg/dl Calcium 9.0 (8.5-10.1) mg/dl C-Reactive Protein 18.10 H (0-0.29) mg/dl Beta-Hydroxybutyric Acd 8.19 H (0.2-2.81) mg/dl COVID-19 Eval Order SARS-CoV-2 (PCR) (Negative) Influenza Type A (PCR) (Neg) Influenza Type B (PCR) (Neg) RSV (RT-PCR) (Neg) Diagnostic Findings XR knee RT 3V CLINICAL HISTORY: Right Knee Pain [place] view 3, D07 COMPARISON STUDY: None. FINDINGS: Extensive prepatellar soft tissue swelling. No soft tissue gas identified. Trace knee effusion. No fracture or dislocation. Tiny tricompartmental marginal osteophytes. Cartilage spaces are maintained for age. IMPRESSION: 1. Extensive prepatellar soft tissue swelling. This could represent a prepatellar bursitis or recent trauma. 2. Trace knee effusion. 3. No fractures. CT knee RT w con HISTORY: 65 years-old Male concern for septic arthritis acute right knee pain with clinical concern for septic arthropathy COMPARISON: Right knee radiographs of same day TECHNIQUE: Multiple axial CT images of the right knee were obtained following the intravenous administration of 88 mL Optiray 320. A dose lowering technique was used consistent with the principals of JUANCARLOS. FINDINGS: Complex peripheral enhancing prepatellar fluid collection with central enhancing septations measures up to 15.2 x 2.1 x 9.5 cm in transverse, AP and craniocaudal dimensions. Moderate associated cutaneous edema with skin thickening. Trace joint effusion. Moderate atheromatous plaque of the popliteal artery and arteries of the calf. The musculature appears to be within normal limits. Tendons and ligaments are not well evaluated by CT technique. There is mild tricompartmental osteoarthritis. No acute fracture, dislocation or osseous erosion. Subcortical cystic changes of the fibular head. IMPRESSION: 1. Mild tricompartmental osteoarthritis without acute fracture, dislocation or osseous erosion. 2. Complex peripherally enhancing prepatellar fluid collection with enhancing thick septations measures over 15 cm in greatest dimension. Complex bursitis versus abscess considered. 3. Trace joint effusion. 4. Moderate peripheral arterial disease. Supervising Physician Co-Signing Physician Notes Attending addendum: I have physically seen this patient, have supervised the medical residents activities, and agree with the H&P unless as otherwise noted. Assessment and Plan: Right knee septic joint/prepatellar effusion/complex bursitis versus abscess- N.p.o. after midnight Vancomycin IV and cefepime IV per pharmacokinetic monitoring Follow fluid cultures and blood cultures Orthopedic surgery is aware Hyperglycemia and diabetes mellitus- Glucose 628 upon admission Beta doxy with uric acid 8.19 with a normal anion gap Status post 10 units regular insulin IV in ED Hold Metformin Patient on unknown NPH dose at home, with large volume regular insulin subcu twice daily Placed on Accu-Cheks with Humalog coverage Spot insulin regular IV based on BSG's Pseudohyponatremia- Sodium 128 upon admission, with correction for elevated blood sugar 136 Follow serially Atrial fibrillation with RVR/frequent PVCs- As needed Lopressor IV as noted Follow on telemetry Follow electrolytes closely and supplement as needed Remainder of orders and notations as noted Resident Activity Tracking Resident Involvement: Resident Care Provided Care Provided: Adult Hospital Medicine (1) Septic arthritis Laterality: right Septic arthritis location: knee Septic arthritis organism: due to unspecified organism Qualified Code(s): M00.9 - Pyogenic arthritis, unspecified
[2020-07-16] MEDS ORDERED: OPTIRAY 300 100mL IV ONE (20:37)
--- NOTE | 2020-07-16 21:02 | CT Scan Report ---
CT knee RT w con HISTORY: 65 years-old Male concern for septic arthritis acute right knee pain with clinical concern for septic arthropathy COMPARISON: Right knee radiographs of same day TECHNIQUE: Multiple axial CT images of the right knee were obtained following the intravenous adminis tration of 88 mL Optiray 320. A dose lowering technique was used consistent with the principals of DEENA MONTGOMERY. FINDINGS: Complex peripheral enhancing prepatellar fluid collection with central enhancing septations measures up to 15.2 x 2.1 x 9.5 cm in transverse, AP and craniocaudal dimensions. Moderate associated cutaneou s edema with skin thickening. Trace joint effusion. Moderate atheromatous plaque of the popliteal art ambreen and arteries of the calf. The musculature appears to be within normal limits. Tendons and ligamen ts are not well evaluated by CT technique. There is mild tricompartmental osteoarthritis. No acute fr acture, dislocation or osseous erosion. Subcortical cystic changes of the fibular head. IMPRESSION: 1. Mild tricompartmental osteoarthritis without acute fracture, dislocation or osseous erosion. 2. Complex peripherally enhancing prepatellar fluid collection with enhancing thick septations measur es over 15 cm in greatest dimension. Complex bursitis versus abscess considered. 3. Trace joint effusion. 4. Moderate peripheral arterial disease. ACT 112: Negative or not required by law. The above report was generated using voice recognition software. It may contain grammatical, syntax o r spelling errors. Electronically signed by: Vahe Montez M.D. 07/16/2020 9:00 PM
[2020-07-16] MEDS ORDERED: CARBOHYDRATES FOR HYPOGLYCEMIA PO PRN (22:04)
[2020-07-16] MEDS ORDERED: ONDANSETRON INJ 2 MG/ML 2 ML VIAL IV PRN (22:04)
[2020-07-16] MEDS ORDERED: MAGNESIUM HYDROXIDE SUSP 30 ML UDC PO PRN (22:04)
[2020-07-16] MEDS ORDERED: ALUMINUM/MAGNESIUM SUSP 30 ML UDC PO PRN (22:04)
[2020-07-16] MEDS ORDERED: DEXTROSE 50% 50 ML SYRINGE IV PRN (22:04)
[2020-07-16] MEDS ORDERED: GLUCAGON FOR INJ 1 MG VIAL SQ PRN (22:04)
[2020-07-16] MEDS ORDERED: GLUCOSE 40% GEL 15 GM TUBE PO PRN (22:04)
[2020-07-16] MEDS ORDERED: GLUCOSE 10 TABS/TUBE PO PRN (22:04)
[2020-07-16] MEDS ORDERED: ACETAMINOPHEN 1000 MG/100 ML IV IV PRN (22:04)
[2020-07-16] MEDS ORDERED: POLYETHYLENE (MIRALAX) 17 GM PACK PO PRN (22:04)
[2020-07-16] MEDS ORDERED: traZODone HCL 50 MG TAB PO PRN (22:04)
[2020-07-16] MEDS: CEFEPIME 2,000 MG in SYRINGE 0 ML IV SCH (23:02)
[2020-07-16] MEDS: INSULIN ASPART 100 UNITS/ML 3 ML PEN SC SCH (23:03)
[2020-07-17] MEDS: INSULIN ASPART 100 UNITS/ML 3 ML PEN SC SCH ×5 (00:16→21:07)
--- NOTE | 2020-07-17 04:28 | Consultation Report ---
DATE OF CONSULTATION: 07/16/2020 EMERGENCY ROOM CONSULTATION PERTINENT HISTORY: This is a 65-year-old gentleman seen at request of the emergency physician due to right knee pain and swelling. The patient has had a 3- to 4-day history of worsening pain and swelling of the anterior aspect of the right knee. The patient suspects he may or may not have been bitten by an insect, possibly a spider. He was also helping a friend feed some cows recently, perhaps rubbed against some of the mitchell. No specific known trauma. No previous history of injury to the right knee. No recent falls or trauma. Pain and swelling. No fevers or chills. No vomiting. No nausea, no diarrhea. PAST MEDICAL HISTORY: Diabetes mellitus, history of prostate cancer, hypertension, osteoarthritis, chronic smokeless tobacco use. PAST SURGICAL HISTORY: Left total knee arthroplasty, shoulder arthroscopy. ALLERGIES: No known drug allergies. MEDICATIONS: Metoprolol, insulin NPH, insulin regular, levothyroxine, lisinopril, metformin ER, simvastatin, trazodone, triamterene/hydrochlorothiazide. SOCIAL HISTORY: The patient uses smokeless tobacco on a regular basis. Denies significant alcohol use. Denies drug use. He is . He works at the [employer]. PHYSICAL EXAMINATION: This is a 65-year-old gentleman lying supine on the transfer cart in the ER. The patient was examined with the ER physician present. Focused exam of the right knee demonstrates a markedly enlarged bursa of the anterior aspect of the right knee. It is markedly tender to palpation and there is a large prepatellar effusion. There is no pain related to range of motion of the knee joint; however, any range of motion of the right knee causes increased pressure and discomfort in the anterior aspect of the knee related to the septic bursitis. He has erythema at the site, increased warmth, and no obvious sites of inoculation at the knee. Ligaments are stable. No unusual bruising. There is surrounding pericellulitis at the right anterior knee bursa. Pulses are intact. Feet are warm. Sensation is intact to bilateral feet. RADIOGRAPHIC DATA: Radiographs demonstrate stable right knee with essentially normal alignment with mild lateral tracking of the right patella with a significant bursal effusion. No obvious fractures. Slight sclerosis at the proximal tibia and exostosis of the superior anterior patella. IMPRESSION: Right knee septic bursitis. RECOMMENDATIONS: Admit to the hospitalist service to manage his hyperglycemia. Stabilized for surgery. We will plan for right knee septic bursectomy tomorrow. N.p.o. after midnight. Continue IV antibiotics as per recommendations of the medical service. Thank you for the opportunity to consult in the care of this patient.
[2020-07-17] MEDS: METOPROLOL TARTRATE 1 MG/ML VIAL IV PRN ×2 (04:51→16:39)
[2020-07-17] MEDS: LEVOTHYROXINE SODIUM 125 MCG TABLET PO SCH (06:19)
[2020-07-17 06:29] LABS: Basophils # (auto) 0.03 K/uL (0-0.2); Basophils % (auto) 0.3 %; Eosinophils # (auto) 0.19 K/uL (0-0.5); Eosinophils % (auto) 2.1 %; Hematocrit (blood only) 38.7 % (42-52); Hemoglobin 13.6 g/dL (14.0-18.0); Immature Granulocytes # (auto) 0.03 K/uL (0.00-0.02); Immature Granulocytes % (auto) 0.3 %; Mean Corpuscular Hemoglobin 30.4 pg (25-34); Mean Corpuscular Hgb Conc 35.1 g/dL (32-36); Mean Corpuscular Volume 86.4 fL (80-100); Mean Platelet Volume 9.4 fL (7.4-10.4); Monocytes # (auto) 0.86 K/uL (0.11-0.59); Monocytes % (auto) 9.6 %; Neutrophils # (auto) 6.15 K/uL (1.4-6.5); Neutrophils % (auto) 68.7 %; Platelet Count 268 K/uL (130-400); RDW Coefficient of Variation 12.4 % (11.5-14.5); RDW Standard Deviation 39.8 fL (36.4-46.3); Red Blood Count 4.48 M/uL (4.7-6.1); White Blood Count 8.96 K/uL (4.8-10.8)
[2020-07-17 07:08] LABS: Albumin Globulin Ratio 0.6 (0.9-2); Albumin Level 2.4 gm/dl (3.4-5.0); BUN Creatinine Ratio 20.7 (10-20); Bilirubin,Total 0.9 mg/dl (0.2-1); Calcium 8.5 mg/dl (8.5-10.1); Creatinine Clr Calc Pharmacy 115.6 ml/min; Est GFR (African American) 110.4; Est GFR (Non-African American) 95.2; Globulin 4.3 gm/dl (2.5-4.0); Magnesium 1.8 mg/dl (1.8-2.4); Phosphorus 2.5 mg/dl (2.5-4.9); Potassium 3.3 mmol/L (3.5-5.1); Total Protein 6.7 gm/dl (6.4-8.2)
--- NOTE | 2020-07-17 07:20 | Anesthesiology Consultation ---
Date of Service July 17, 2020 Assessment & Plan Chart Review Chart Review: Acceptable Risk for Surgery Consults Requested medical & cardiac Pulmonary ASA ASA3 Proposed Anesthesia Anesthesia Type: General Risk / Benefits Reviewed With: PT / POA / Parent / Guardian, Accepts Plan and Informed Consent Obtained Additional Comments: pt received am metoprolol. Accepts risks of dental damage/need for removal History Surgery Operation Date: 07/17/20 09:00 Proposed Procedures p Right Knee Bursectomy(Right) - Luke Ballesteros DO Height/Weight Height: 5 ft 11 in Weight: 100.7 kg Allergies Allergy/AdvReac Type Severity Reaction Status Date / Time No Known Allergies Allergy Unverified 07/16/20 18:14 Medications Home Medications Medication Instructions Recorded Confirmed Last Taken aspirin 81 mg tablet,delayed 81 mg PO DAILY #30 tab 07/09/19 07/16/20 Unknown release blood sugar diagnostic #10 ea 08/19/19 10/20/19 Unknown levothyroxine 125 mcg tablet 125 mcg PO DAILY #30 tab 10/20/19 07/16/20 Unknown metformin 500 mg tablet,extended 500 mg PO BID #60 tab 10/20/19 07/16/20 Unknown release 24hr metoprolol succinate 50 mg capsule 50 mg PO DAILY #30 ea 10/20/19 07/16/20 Unk agnélica vasquez, ext. release 24 hr insulin NPH isoph U-100 human 100 See Rx Instructions SUBCUT QAM #20 03/04/20 07/16/20 Unknown unit/mL subcutaneous suspension ml insulin regular human 100 unit/mL 30 unit SUBCUT BID #20 ml 03/04/20 07/16/20 Unknown injection solution trazodone 50 mg PO HS PRN 07/16/20 07/16/20 Unknown Active Medications Generic Name Dose Route Start Last Admin Trade Name Freq PRN Reason Stop Dose Admin Acetaminophen 1,000 mg 07/16/20 22:04 07/17/20 01:04 Acetaminophen 1000 Mg/100 Ml Iv IV 07/19/20 22:03 1,000 mg Q8H PRN Administration Pain or Fever Cefepime HCl 2,000 mg/ Syringe 20 mls @ 5 mls/min 07/17/20 00:00 07/16/20 23:02 IV 08/28/20 00:00 5 mls/min Q12H JOSELITO Administration Protocol Insulin Aspart 0 units 07/16/20 22:04 07/17/20 06:18 Insulin Aspart 100 Units/Ml 3 Ml Pen SC 08/15/20 22:03 3 units Q6 JOSELITO Administration Levothyroxine Sodium 125 mcg 07/17/20 06:30 07/17/20 06:19 Levothyroxine Sodium 125 Mcg Tablet PO 08/16/20 06:29 125 mcg DAILYBB JOSELITO Administration Metoprolol Succinate 50 mg 07/17/20 09:00 07/17/20 07:38 Metoprolol Succ 50mg Ext Rel Tab PO 08/16/20 08:59 50 mg DAILY JOSELITO Administration Metoprolol Tartrate 5 mg 07/16/20 21:54 07/17/20 04:51 Metoprolol Tartrate 1 Mg/Ml Vial IV 08/15/20 21:53 5 mg Q5M PRN Administration Tachycardia NPO Date Last Intake of Fluids: 07/16/20 Time Last Intake of Fluids: 22:00 Date Last Intake of Solids: 07/16/20 Time Last Intake of Solids: 22:00 Past Medical History Medical History Atrial fibrillation Cellulitis Diabetes History of alcoholism History of prostate cancer HTN (hypertension) Hyperlipidemia Hypothyroidism Insomnia Seborrheic dermatitis of scalp Septic arthritis Septic prepatellar bursitis Tobacco abuse Vitamin D deficiency Past Family History Family History Mother Cancer Grandmother (Paternal) Stroke Grandfather (Paternal) Stroke Other Myocardial infarction Denies family history of Ovarian cancer Prostate cancer Breast cancer Colorectal cancer Past Surgical History Surgical History History of left knee surgery History of shoulder surgery Left Social History Smoking Status: Former smoker tobacco type: smokeless tobacco Do You Dip or Chew Tobacco: Yes Hx Alcohol Use: Yes alcohol intake frequency: other Alcohol Intake Frequency Comment: no alcohol use in last 30 days; pt states he is an alcoholic Hx Substance Use: No substance use type: does not use Physical Exam Vital Signs Last Vital Signs Temp 36.6 C 07/17/20 07:36 Pulse 80 07/17/20 07:36 Resp 16 07/17/20 07:36 BP 128/94 07/17/20 07:36 Pulse Ox 97 07/17/20 07:36 ENMT Mouth: + dental caries (Every remaining tooth is broken decayed and black with caries), + poor dentition and + chipped teeth; no TMJ abnormality Thyromental Distance: > or= 3.5 Finger Breadths Mallampati Class: I pt was informed that he would potentially have to have dental removal. He agreed that would be ok as long as I gave him the teeth that were removed after the case. LMA intended, but may still cause dental damage. Pt assumes all risks and states he intends to have his teeth removed soon at [facility] dental clinic. Neck normal visual inspection and trachea midline; neck extension not limited Respiratory normal respiratory effort Auscultation: lungs clear to auscultation bilaterally Cardiovascular Rate/Rhythm: regular rate and regular rhythm Heart Sounds: no murmur Musculoskeletal Spine: normal cervical ROM Extremities: full ROM of extremities Neurologic moves all extremities Psychiatric Orientation: alert and oriented x 3 Testing Laboratory Results 07/17/20 06:00 07/17/20 06:00 07/17/20 07/17/20 07/17/20 07:31 07:30 07:25 POC Glucose 271 H 266 H 322 H* 07/17/20 07/17/20 07/17/20 06:04 00:15 00:12 POC Glucose 281 H 377 H* 331 H* 07/16/20 07/16/20 07/16/20 23:00 22:59 21:30 POC Glucose 349 H* 430 H* 388 H* COVID neg PCR 07/16/20 Electrocardiogram Date: 07/16/20 Findings: + RBBB and + ST @ (135 [id number])
[2020-07-17 07:25] LABS: Beta-Hydroxybutyrate 27.44 mg/dl (0.2-2.81)
[2020-07-17] MEDS ORDERED: PROPOFOL IV EMULSION 10 MG/ML 20 ML VIAL IV ONE (07:26)
[2020-07-17] MEDS ORDERED: MIDAZOLAM HCL 1 MG/ML 2ML VIAL ONE (07:26)
[2020-07-17] MEDS ORDERED: fentaNYL citrate 100 MCG/2 ML VIAL ONE ×3 (07:26→08:33)
[2020-07-17] MEDS ORDERED: LIDOCAINE HCL 2% 2 ML VIAL/AMP(20MG/ML) INFIL ONE (07:26)
[2020-07-17] MEDS: METOPROLOL SUCC 50MG EXT REL TAB PO SCH (07:38)
[2020-07-17] MEDS ORDERED: fentaNYL citrate 100 MCG/2 ML VIAL IV PRN (07:57)
[2020-07-17] MEDS ORDERED: PROMETHAZINE HCL 12.5 MG in SODIUM CHLORIDE 0.9% 50 ML IV PRN (07:57)
[2020-07-17] MEDS ORDERED: ATROPINE SULFATE 0.1 MG/ML 10ML SYR IV PRN (07:57)
[2020-07-17] MEDS ORDERED: ePHEDrine sulfate 50 MG/ML AMP IV PRN (07:57)
[2020-07-17] MEDS ORDERED: METOCLOPRAMIDE HCL INJ 5 MG/ML 2 ML VIAL IV PRN ×2 (07:57→10:30)
[2020-07-17] MEDS ORDERED: MEPERIDINE HCL 25 MG/ML CARP/VIAL IV PRN (07:57)
[2020-07-17] MEDS ORDERED: MoRPHine SULFATE 10 MG/ML CARP/VIAL IV PRN (07:57)
--- NOTE | 2020-07-17 07:57 | History & Physical Bridge Note ---
Date of Service July 17, 2020 History & Physical Bridge Note I have examined the patient, reviewed the History & Physical and in the interval since the performance of the History & Physical I have noted the following changes of clinical significance: no changes noted
[2020-07-17 08:05] LABS: Estimated Average Glucose 260 mg/dl; Hemoglobin A1C 10.7 % (4.5-5.6)
[2020-07-17] MEDS ORDERED: BUPIVACAINE 0.5 % 5 MG/1 ML MPF 30ML VIAL ONE (08:05)
[2020-07-17] MEDS ORDERED: METOPROLOL TARTRATE 1 MG/ML VIAL IV ONE (08:33)
--- NOTE | 2020-07-17 09:06 | Post Operative Brief Note ---
Immediate Post Op Note v1 Date of Surgery July 17, 2020 Pre & Post Diagnosis Operation Date: 07/17/20 09:00 Pre-Op Diagnosis: RIGHT KNEE SEPTIC PREPATELLAR BURSITIS Post-Op Diagnosis: RIGHT KNEE SEPTIC PREPATELLAR BURSITIS I identified the patient and participated in the time-out.: Yes Procedure Operation Date: 07/17/20 09:00 Actual Procedures p Right Knee resection septic prepatellar bursa (Right) - Luke Ballesteros DO Surgeon Luke Ballesteros DO Special Delivery Carrier Obed Rojas PA-C Estimated Blood Loss 5 Findings Consistent with Post-Op Diagnosis Specimens Aerobic anaerobic Gram stain right knee septic prepatellar bursa Drains Other (Hemovac drain x1) Anesthesia Type General Regional Complications none Disposition Accompanied Patient To Recovery: No Disposition: Recovery Room
[2020-07-17] MEDS ORDERED: INSULIN ASPART PER UNIT 6 UNITS in SYRINGE 0 ML SC STA (09:19)
[2020-07-17] MEDS ORDERED: INSULIN ASPART 100 UNITS/ML 3 ML PEN SC STA (09:23)
[2020-07-17] MEDS ORDERED: INSULIN ASPART PER UNIT SC STA (09:25)
[2020-07-17] MEDS ORDERED: bisacodyL 10 MG SUPP PR PRN (10:30)
[2020-07-17] MEDS ORDERED: HYDROmorphone INJ 0.5 MG/0.5 ML SYR IV PRN (10:30)
[2020-07-17] MEDS ORDERED: NALOXONE HCL 0.4 MG/1 ML VIAL/CARP IV PRN (10:30)
[2020-07-17] MEDS ORDERED: SODIUM CHLORIDE 0.9% 1000ML 1,000 ML IV SCH (10:30)
[2020-07-17] MEDS ORDERED: TAMSULOSIN HCL 0.4 MG CAP PO PRN (10:30)
[2020-07-17] MEDS ORDERED: ONDANSETRON INJ 2 MG/ML 2 ML VIAL IV PRN (10:30)
[2020-07-17] MEDS ORDERED: MAGNESIUM HYDROXIDE SUSP 30 ML UDC PO PRN (10:30)
[2020-07-17] MEDS: POTASSIUM CHLORIDE / WTR 10 MEQ/100 ML PLCT IV SCH ×2 (10:35→12:40)
--- NOTE | 2020-07-17 10:54 | Anesthesiology Progress Note ---
Date of Service July 17, 2020 Anesthesia Post Procedure Vital Signs Vital Signs: Temp Pulse Pulse Pulse Pulse Resp BP 07/17/20 10:33 36.8 C 86 18 07/17/20 10:10 36.6 C 112 H 18 07/17/20 10:00 115 H 18 07/17/20 09:50 36.4 C L 120 H 18 07/17/20 09:40 121 H 18 07/17/20 09:30 127 H 18 07/17/20 09:20 132 H 18 07/17/20 09:12 36.1 C L 121 H 18 07/17/20 07:36 36.6 C 80 16 07/17/20 04:51 134 H 166/82 H 07/17/20 04:50 134 H 07/17/20 02:52 36.8 C 90 16 07/17/20 00:00 106 H 07/16/20 23:14 36.9 C 88 20 07/16/20 23:12 37.0 C 106 H 18 07/16/20 22:00 36.7 C 96 H 16 07/16/20 21:33 122 H 18 142/80 H 07/16/20 21:00 111 H 18 07/16/20 19:55 115 H 16 07/16/20 19:00 115 H 18 07/16/20 18:30 115 H 15 07/16/20 18:20 114 H 23 07/16/20 18:10 118 H 15 07/16/20 18:00 127 H 22 157/112 H 07/16/20 17:50 105 H 16 07/16/20 17:43 109 H 163/96 H 07/16/20 17:40 114 H 19 07/16/20 17:30 118 H 21 07/16/20 17:20 116 H 14 07/16/20 17:10 125 H 17 07/16/20 17:00 129 H 18 07/16/20 16:50 114 H 21 07/16/20 16:40 119 H 13 07/16/20 16:38 132 H 14 07/16/20 16:29 119 H 22 148/106 H 07/16/20 16:00 112 H 18 07/16/20 14:05 36.5 C 122 H 20 BP BP Pulse Ox 07/17/20 10:33 129/77 93 07/17/20 10:10 127/75 94 07/17/20 10:00 120/93 95 07/17/20 09:50 127/94 95 07/17/20 09:40 136/84 96 07/17/20 09:30 135/92 96 07/17/20 09:20 123/96 100 07/17/20 09:12 147/97 H 98 07/17/20 07:36 128/94 97 07/17/20 04:51 07/17/20 04:50 166/82 H 07/17/20 02:52 98/64 L 95 07/17/20 00:00 07/16/20 23:14 133/89 97 07/16/20 23:12 127/74 98 07/16/20 22:00 163/89 H 97 07/16/20 21:33 96 07/16/20 21:00 142/89 H 96 07/16/20 19:55 128/99 96 07/16/20 19:00 160/90 H 98 07/16/20 18:30 92 07/16/20 18:20 94 07/16/20 18:10 07/16/20 18:00 98 07/16/20 17:50 95 07/16/20 17:43 91 07/16/20 17:40 98 07/16/20 17:30 94 07/16/20 17:20 96 07/16/20 17:10 95 07/16/20 17:00 94 07/16/20 16:50 93 07/16/20 16:40 95 07/16/20 16:38 95 07/16/20 16:29 94 07/16/20 16:00 148/96 H 96 07/16/20 14:05 95 Pain Intensity Right Knee: Pain Intensity: 5 Transfer of Care Handoff Completed per policy Notes Mental Status: alert / awake / arousable Patient Amnestic to Procedure: Yes Nausea / Vomiting: adequately controlled Pain: adequately controlled Airway Patency, RR, SpO2: stable & adequate BP & HR: stable & adequate Hydration State: stable & adequate Anesthetic Complications: no major complications apparent and Pt Satisfied with anesthetic care Notes: pt BG tx'd with 6units SC novolog aspart. Rechecked BG and OK for tfr back to floor.
[2020-07-17] MEDS: HEPARIN SOD 5,000 UNIT/0.5 ML VIAL SQ SCH ×2 (10:56→21:06)
[2020-07-17] MEDS: ASPIRIN 81 MG ECTAB PO SCH (10:56)
[2020-07-17] MEDS: CEFEPIME 2,000 MG in SYRINGE 0 ML IV SCH ×2 (12:12→23:27)
--- NOTE | 2020-07-17 13:06 | Hospitalist Progress Note ---
Date of Service July 17, 2020 Assessment & Plan (1) Septic arthritis: Lars Kuamr is a 65-year-old with PMH significant for diabetes, tobacco use, hypothyroidism; who presents to the ED for concerns of right knee pain/swelling over the last several days. Septic arthritis: -Concern for septic arthritis versus septic cellulitis given the appearance of the overlying tissue of the right knee -Elevated ESR, CRP on admission; no elevation of WBCs -XR right knee demonstrating extensive prepatellar effusion -CT right knee demonstrating complex enhancing prepatellar fluid collection with thick septations; concerning for complex bursitis versus abscess -07/17 s/p Right Knee resection septic prepatellar bursa -Continue cefepime given h/o DM, d/c Vanc -Blood and wound cultures pending -appreciate Ortho consult -PT/OT pending Hyperglycemia: -Glucose on admission of 628. Beta hydroxybutyrate up to 27.4 -No anion gap making DKA unlikely at this point time; poor glucose control potentially secondary to infection as above -Received 10 units IV insulin in ED -Hold home Metformin. Sliding scale insulin at this point time -A1c 10.1 this admission Hyponatremia: -Na 128 on admission; with correction for hyperglycemia Na 136 -This is likely secondary to poor glucose control as above -Continue to monitor Atrial fibrillation: -Continue to observe on telemetry -EKG in the ED demonstrating A. fib with RVR and frequent PVCs -No known history of arrhythmias -CHADS-VASC2 score of 2 placing at moderate high and rec anticoagulation. HAS- BLED score of 2 placing at moderate risk for bleeding -Tachycardia in setting of infection and pain. Will hold off on anticoagulation for now, but will need to be started prior to d/c -Lopressor 5 mg IV every 5 minutes as needed for tachycardia Diet: DM2 Diet CODE STATUS: Full code DVT prophylaxis: Heparin SQ Dispo: MedSurg with telemetry Admission and Anticipated Discharge Date Admission Date: July 16, 2020 Supervising Physician Co-Signing Physician Notes I personally examined the patient and verified all sanders points of history and exam, discussed case, and agree with decision making with Dr Farooq. Fairly groggy postop. Notes that his knee does feel deflated, notes that it hurt a lot prior to surgery. Vitals noted, in general he is awake but fairly groggy no distress. HEENT normocephalic atraumatic mucous membranes moist, very poor dentition. Breathing unlabored no accessory muscle use good effort. No focal neuro deficits Septic bursitiscontinue current antibiotics pending cultures from surgery, now postop, anticipate ongoing improvement. Definitely would benefit from better glycemic control Uncontrolled type 2 diabeteswhenever he is more awake and alert, will try to assess diet history and educate further as best as possible. Atrial fibrillationgiven that he is here with an infection and has some pain, his rate is at the upper limits of reasonable, if it were to get much faster, then we would start beta-blockers for rate control. He would benefit from anticoagulation given his [id number] of 2, but there is no emergency to do so, will allow healing from surgery first DVT prophylaxisheparin subcu Subjective Pt seen at bedside, no acute overnight events. Seen after OR. Limited subjective 2/2 anesthesia effects and drowsiness. Pain tolerated. No other acute concerns or complaints. Review of Systems Review of Systems: All systems reviewed & are unremarkable except as noted in HPI & below Physical Exam Constitutional: WD/WN, vitals as above Eyes: PERRL, conjunctivae normal, anicteric sclerae ENMT: external ear and nose normal, oropharynx normal Respiratory: normal respiratory effort, lungs clear to auscultation Cardiovascular: Rate/Rhythm: regular rate and + tachycardic Gastrointestinal (Abdomen): normal bowel sounds, soft, nontender, no hepatosplenomegaly Musculoskeletal: R knee bandaged Skin: no rashes, warm and dry Psychiatric: A+Ox3, euthymic affect Results & Data Results & Data ([facility]) Vital Signs (Past 12 Hours) Vital Signs Temp Pulse Pulse Pulse Resp BP BP 07/17/20 11:57 110 H 07/17/20 11:22 36.8 C 87 18 07/17/20 10:53 36.7 C 95 H 07/17/20 10:33 36.8 C 86 07/17/20 10:10 36.6 C 112 H 18 07/17/20 10:00 115 H 18 07/17/20 09:50 36.4 C L 120 H 18 07/17/20 09:40 121 H 07/17/20 09:30 127 H 07/17/20 09:20 132 H 07/17/20 09:12 36.1 C L 121 H 18 07/17/20 07:36 36.6 C 80 16 128/94 07/17/20 04:51 134 H 166/82 H 07/17/20 04:50 134 H 166/82 H 07/17/20 02:52 36.8 C 90 16 98/64 L BP Pulse Ox 07/17/20 11:57 07/17/20 11:22 135/88 95 07/17/20 10:53 131/81 93 07/17/20 10:33 129/77 93 07/17/20 10:10 127/75 94 07/17/20 10:00 120/93 95 07/17/20 09:50 127/94 95 07/17/20 09:40 136/84 96 07/17/20 09:30 135/92 96 07/17/20 09:20 123/96 100 07/17/20 09:12 147/97 H 98 07/17/20 07:36 97 07/17/20 04:51 07/17/20 04:50 07/17/20 02:52 95 Laboratory Results Laboratory Results - last 24 hr 07/16/20 07/16/20 07/16/20 16:06 16:06 16:06 WBC 9.23 RBC 4.64 L Hgb 14.3 Hct 40.2 L MCV 86.6 MCH 30.8 MCHC 35.6 RDW Std Deviation 39.8 RDW Coeff of Robyn 12.5 Plt Count 256 MPV 9.5 Immature Gran % (Auto) 0.2 Neut % (Auto) 75.4 Lymph % (Auto) 15.7 Hemphill % (Auto) 8.2 Eos % (Auto) 0.3 Baso % (Auto) 0.2 Neut # (Auto) 6.95 H Lymph # (Auto) 1.45 Hemphill # (Auto) 0.76 H Eos # (Auto) 0.03 Baso # (Auto) 0.02 Immature Gran # (Auto) 0.02 ESR 72 H Sodium 128 L Potassium 3.6 Chloride 92 L Carbon Dioxide 32 Anion Gap 4.0 BUN 18 Creatinine 1.26 Est Cr Clr Drug Dosing 71.9 Est GFR ( Amer) 68.9 Est GFR (Non-Af Amer) 59.5 BUN/Creatinine Ratio 14.1 Glucose 628 H* POC Glucose Estimat Average Glucose Hemoglobin A1c Uric Acid Calcium 9.0 Phosphorus Magnesium Total Bilirubin AST ALT Alkaline Phosphatase C-Reactive Protein 18.10 H Total Protein Albumin Globulin Albumin/Globulin Ratio Beta-Hydroxybutyric Acd 8.19 H COVID-19 Eval Order SARS-CoV-2 (PCR) Influenza Type A (PCR) Influenza Type B (PCR) RSV (RT-PCR) 07/16/20 07/16/20 07/16/20 16:06 18:49 18:49 WBC RBC Hgb Hct MCV MCH MCHC RDW Std Deviation RDW Coeff of Robyn Plt Count MPV Immature Gran % (Auto) Neut % (Auto) Lymph % (Auto) Hemphill % (Auto) Eos % (Auto) Baso % (Auto) Neut # (Auto) Lymph # (Auto) Hemphill # (Auto) Eos # (Auto) Baso # (Auto) Immature Gran # (Auto) ESR Sodium Potassium Chloride Carbon Dioxide Anion Gap BUN Creatinine Est Cr Clr Drug Dosing Est GFR ( Amer) Est GFR (Non-Af Amer) BUN/Creatinine Ratio Glucose POC Glucose Estimat Average Glucose Hemoglobin A1c Uric Acid 4.2 Calcium Phosphorus Magnesium Total Bilirubin AST ALT Alkaline Phosphatase C-Reactive Protein Total Protein Albumin Globulin Albumin/Globulin Ratio Beta-Hydroxybutyric Acd COVID-19 Eval Order CovFluRsv at [facility] SARS-CoV-2 (PCR) NEGATIVE Influenza Type A (PCR) Negative Influenza Type B (PCR) Negative RSV (RT-PCR) Negative 07/16/20 07/16/20 07/16/20 21:30 22:59 23:00 WBC RBC Hgb Hct MCV MCH MCHC RDW Std Deviation RDW Coeff of Robyn Plt Count MPV Immature Gran % (Auto) Neut % (Auto) Lymph % (Auto) Hemphill % (Auto) Eos % (Auto) Baso % (Auto) Neut # (Auto) Lymph # (Auto) Hemphill # (Auto) Eos # (Auto) Baso # (Auto) Immature Gran # (Auto) ESR Sodium Potassium Chloride Carbon Dioxide Anion Gap BUN Creatinine Est Cr Clr Drug Dosing Est GFR ( Amer) Est GFR (Non-Af Amer) BUN/Creatinine Ratio Glucose POC Glucose 388 H* 430 H* 349 H* Estimat Average Glucose Hemoglobin A1c Uric Acid Calcium Phosphorus Magnesium Total Bilirubin AST ALT Alkaline Phosphatase C-Reactive Protein Total Protein Albumin Globulin Albumin/Globulin Ratio Beta-Hydroxybutyric Acd COVID-19 Eval Order SARS-CoV-2 (PCR) Influenza Type A (PCR) Influenza Type B (PCR) RSV (RT-PCR) 07/17/20 07/17/20 07/17/20 00:12 00:15 06:00 WBC 8.96 RBC 4.48 L Hgb 13.6 L Hct 38.7 L MCV 86.4 MCH 30.4 MCHC 35.1 RDW Std Deviation 39.8 RDW Coeff of Robyn 12.4 Plt Count 268 MPV 9.4 Immature Gran % (Auto) 0.3 Neut % (Auto) 68.7 Lymph % (Auto) 19.0 Hemphill % (Auto) 9.6 Eos % (Auto) 2.1 Baso % (Auto) 0.3 Neut # (Auto) 6.15 Lymph # (Auto) 1.70 Hemphill # (Auto) 0.86 H Eos # (Auto) 0.19 Baso # (Auto) 0.03 Immature Gran # (Auto) 0.03 H ESR Sodium Potassium Chloride Carbon Dioxide Anion Gap BUN Creatinine Est Cr Clr Drug Dosing Est GFR ( Amer) Est GFR (Non-Af Amer) BUN/Creatinine Ratio Glucose POC Glucose 331 H* 377 H* Estimat Average Glucose Hemoglobin A1c Uric Acid Calcium Phosphorus Magnesium Total Bilirubin AST ALT Alkaline Phosphatase C-Reactive Protein Total Protein Albumin Globulin Albumin/Globulin Ratio Beta-Hydroxybutyric Acd COVID-19 Eval Order SARS-CoV-2 (PCR) Influenza Type A (PCR) Influenza Type B (PCR) RSV (RT-PCR) 07/17/20 07/17/20 07/17/20 06:00 06:00 06:04 WBC RBC Hgb Hct MCV MCH MCHC RDW Std Deviation RDW Coeff of Robyn Plt Count MPV Immature Gran % (Auto) Neut % (Auto) Lymph % (Auto) Hemphill % (Auto) Eos % (Auto) Baso % (Auto) Neut # (Auto) Lymph # (Auto) Hemphill # (Auto) Eos # (Auto) Baso # (Auto) Immature Gran # (Auto) ESR Sodium 136 D Potassium 3.3 L Chloride 101 Carbon Dioxide 26 Anion Gap 9.0 BUN 16 Creatinine 0.77 D Est Cr Clr Drug Dosing 115.6 Est GFR ( Amer) 110.4 Est GFR (Non-Af Amer) 95.2 BUN/Creatinine Ratio 20.7 H Glucose 309 H* POC Glucose 281 H Estimat Average Glucose 260 Hemoglobin A1c 10.7 H Uric Acid Calcium 8.5 Phosphorus 2.5 Magnesium 1.8 Total Bilirubin 0.9 AST 3 L ALT 12 Alkaline Phosphatase 92 C-Reactive Protein Total Protein 6.7 Albumin 2.4 L Globulin 4.3 H Albumin/Globulin Ratio 0.6 L Beta-Hydroxybutyric Acd 27.44 H COVID-19 Eval Order SARS-CoV-2 (PCR) Influenza Type A (PCR) Influenza Type B (PCR) RSV (RT-PCR) 07/17/20 07/17/20 07/17/20 07:25 07:30 07:31 WBC RBC Hgb Hct MCV MCH MCHC RDW Std Deviation RDW Coeff of Robyn Plt Count MPV Immature Gran % (Auto) Neut % (Auto) Lymph % (Auto) Hemphill % (Auto) Eos % (Auto) Baso % (Auto) Neut # (Auto) Lymph # (Auto) Hemphill # (Auto) Eos # (Auto) Baso # (Auto) Immature Gran # (Auto) ESR Sodium Potassium Chloride Carbon Dioxide Anion Gap BUN Creatinine Est Cr Clr Drug Dosing Est GFR ( Amer) Est GFR (Non-Af Amer) BUN/Creatinine Ratio Glucose POC Glucose 322 H* 266 H 271 H Estimat Average Glucose Hemoglobin A1c Uric Acid Calcium Phosphorus Magnesium Total Bilirubin AST ALT Alkaline Phosphatase C-Reactive Protein Total Protein Albumin Globulin Albumin/Globulin Ratio Beta-Hydroxybutyric Acd COVID-19 Eval Order SARS-CoV-2 (PCR) Influenza Type A (PCR) Influenza Type B (PCR) RSV (RT-PCR) 07/17/20 07/17/20 07/17/20 09:17 09:56 11:34 WBC RBC Hgb Hct MCV MCH MCHC RDW Std Deviation RDW Coeff of Robyn Plt Count MPV Immature Gran % (Auto) Neut % (Auto) Lymph % (Auto) Hemphill % (Auto) Eos % (Auto) Baso % (Auto) Neut # (Auto) Lymph # (Auto) Hemphill # (Auto) Eos # (Auto) Baso # (Auto) Immature Gran # (Auto) ESR Sodium Potassium Chloride Carbon Dioxide Anion Gap BUN Creatinine Est Cr Clr Drug Dosing Est GFR ( Amer) Est GFR (Non-Af Amer) BUN/Creatinine Ratio Glucose POC Glucose 258 H 261 H 221 H Estimat Average Glucose Hemoglobin A1c Uric Acid Calcium Phosphorus Magnesium Total Bilirubin AST ALT Alkaline Phosphatase C-Reactive Protein Total Protein Albumin Globulin Albumin/Globulin Ratio Beta-Hydroxybutyric Acd COVID-19 Eval Order SARS-CoV-2 (PCR) Influenza Type A (PCR) Influenza Type B (PCR) RSV (RT-PCR) Medications Administered Current Inpatient Medications Acetaminophen (Acetaminophen 1000 Mg/100 Ml Iv) 1,000 mg IV Q8H PRN PRN Reason: Pain or Fever Stop: 07/19/20 22:03 Last Admin: 07/17/20 01:04 Dose: 1,000 mg Documented by: Al Hydrox/Mg Hydrox/Simethicone (Aluminum/Magnesium Susp 30 Ml Udc) 30 ml PO Q6H PRN PRN Reason: Dyspepsia Stop: 08/15/20 22:03 Aspirin (Aspirin 81 Mg Ectab) 81 mg PO DAILY [facility] Stop: 08/16/20 08:59 Last Admin: 07/17/20 10:56 Dose: Not Given Documented by: Atropine Sulfate (Atropine Sulfate 0.1 Mg/Ml 10ml Syr) 0.5 mg IV Q1M PRN PRN Reason: PACU Use-HR<40 &/or Bradycardi Stop: 07/17/20 15:57 Bisacodyl (Bisacodyl 10 Mg Supp) 10 mg OH DAILY PRN PRN Reason: Constipation Stop: 08/16/20 10:29 Dextrose (Dextrose 50% 50 Ml Syringe) 25 - 50 ml IV UD PRN; Protocol PRN Reason: Hypoglycemia Protocol Stop: 08/15/20 22:03 Docusate Sodium (Docusate Sodium 100 Mg Cap) 100 mg PO BID [facility] Stop: 08/16/20 20:59 Ephedrine Sulfate (Ephedrine Sulfate 50 Mg/Ml Amp) 5 mg IV Q5M PRN PRN Reason: PACU Use Only-SBP<90 mmHg Stop: 07/17/20 15:57 Fentanyl Citrate (Fentanyl Citrate 100 Mcg/2 Ml Vial) 25 mcg IV Q5M PRN PRN Reason: PACU Use Only-Pain Stop: 07/17/20 15:57 Glucagon (Glucagon For Inj 1 Mg Vial) 1 mg SQ UD PRN; Protocol PRN Reason: Hypoglycemia Protocol Stop: 08/15/20 22:03 Glucose (Glucose 10 Tabs/Tube) 4 - 8 tabs PO UD PRN; Protocol PRN Reason: Hypoglycemia Protocol Stop: 08/15/20 22:03 Glucose (Glucose 40% Gel 15 Gm Tube) 15 - 30 gm PO UD PRN; Protocol PRN Reason: Hypoglycemia Protocol Stop: 08/15/20 22:03 Heparin Sodium (Porcine) (Heparin Sod 5,000 Unit/0.5 Ml Vial) 5,000 units SQ Q12 [facility] Stop: 08/16/20 08:59 Last Admin: 07/17/20 10:56 Dose: Not Given Documented by: Hydromorphone HCl (Hydromorphone Inj 0.5 Mg/0.5 Ml Syr) 0.5 mg IV Q4H PRN PRN Reason: Pain or Pre PT Stop: 07/31/20 10:29 Cefepime HCl 2,000 mg/ Syringe 20 mls @ 5 mls/min IV Q12H [facility]; Protocol Stop: 08/28/20 00:00 Last Admin: 07/17/20 12:12 Dose: 5 mls/min Documented by: Promethazine HCl 12.5 mg/ (Sodium Chloride) 50.5 mls @ 204 mls/hr IV ONCE PRN PRN Reason: PACU Use Only-Nausea/Vomiting Stop: 07/17/20 15:58 Sodium Chloride (Nss 1000ml) 1,000 mls @ 100 mls/hr IV .Q10H [facility] Stop: 07/18/20 06:00 Last Admin: 07/17/20 11:00 Dose: 100 mls/hr Documented by: Insulin Aspart (Insulin Aspart 100 Units/Ml 3 Ml Pen) 0 units SC Q6 [facility] Stop: 08/15/20 22:03 Last Admin: 07/17/20 12:13 Dose: 2 units Documented by: Levothyroxine Sodium (Levothyroxine Sodium 125 Mcg Tablet) 125 mcg PO DAILYBB [facility] Stop: 08/16/20 06:29 Last Admin: 07/17/20 06:19 Dose: 125 mcg Documented by: Magnesium Hydroxide (Magnesium Hydroxide Susp 30 Ml Udc) 30 ml PO Q6H PRN PRN Reason: Constipation Stop: 08/16/20 10:29 Meperidine HCl (Meperidine Hcl 25 Mg/Ml Carp/Vial) 12.5 mg IV Q5M PRN PRN Reason: PACU Use Only-Pain/Shivering Stop: 07/17/20 15:58 Metoclopramide HCl (Metoclopramide Hcl Inj 5 Mg/Ml 2 Ml Vial) 10 mg IV ONCE PRN PRN Reason: PACU Use Only-Nausea/Vomiting Stop: 07/17/20 15:58 Metoclopramide HCl (Metoclopramide Hcl Inj 5 Mg/Ml 2 Ml Vial) 10 mg IV Q6H PRN PRN Reason: Nausea And Vomiting Stop: 08/16/20 10:29 Metoprolol Succinate (Metoprolol Succ 50mg Ext Rel Tab) 50 mg PO DAILY [facility] Stop: 08/16/20 08:59 Last Admin: 07/17/20 07:38 Dose: 50 mg Documented by: Metoprolol Tartrate (Metoprolol Tartrate 1 Mg/Ml Vial) 5 mg IV Q5M PRN PRN Reason: Tachycardia Stop: 08/15/20 21:53 Last Admin: 07/17/20 04:51 Dose: 5 mg Documented by: Miscellaneous (Carbohydrates For Hypoglycemia ) 15 - 30 gm PO UD PRN PRN Reason: Hypoglycemia Protocol Stop: 08/15/20 22:03 Morphine Sulfate (Morphine Sulfate 10 Mg/Ml Carp/Vial) 2 mg IV Q5M PRN PRN Reason: PACU Use Only-Pain Stop: 07/17/20 15:58 Multivitamins (Multivitamin Tab) [facility] [place] Stop: 08/17/20 08:59 Naloxone HCl (Naloxone Hcl 0.4 Mg/1 Ml Vial/Carp) 0.1 mg IV Q5M PRN PRN Reason: Oversedation/Resp Depression Stop: 08/16/20 10:29 Ondansetron HCl (Ondansetron Inj 2 Mg/Ml 2 Ml Vial) 4 mg IV Q6H PRN PRN Reason: Nausea And Vomiting Stop: 08/16/20 10:29 Oxycodone HCl (Oxycodone Hcl Ir 5 Mg Tab (Immediate Release)) 5 - 10 mg PO Q4H PRN PRN Reason: Pain or Pre PT Stop: 07/31/20 10:29 Polyethylene Glycol (Polyethylene (Miralax) 17 Gm Pack) 17 gm PO DAILY PRN PRN Reason: Constipation Stop: 08/15/20 22:03 Sennosides (Senna 8.6 Mg Tab) 17.2 mg PO HS [facility] Stop: 08/16/20 20:59 Tamsulosin HCl (Tamsulosin Hcl 0.4 Mg Cap) 0.4 mg PO QAM PRN PRN Reason: UNABLE to void Stop: 08/16/20 10:29 Trazodone HCl (Trazodone Hcl 50 Mg Tab) 50 mg PO HS PRN PRN Reason: Sleep Stop: 08/15/20 22:03 Resident Activity Tracking Resident Involvement: Resident Care Provided Care Provided: Adult Hospital Medicine (1) Septic arthritis Laterality: right Septic arthritis location: knee Septic arthritis organism: due to unspecified organism Qualified Code(s): M00.9 - Pyogenic arthritis, unspecified
[2020-07-17] MEDS: oxyCODONE HCL IR 5 MG TAB (IMMEDIATE RELEASE) PO PRN ×2 (13:54→21:04)
--- NOTE | 2020-07-17 14:24 | Billing Data ---
Date of Service July 17, 2020 Coding Level of Care Code 83136 Subseq Hosp Care Lvl 3
--- NOTE | 2020-07-17 14:35 | Operative Report (OR) ---
DATE OF OPERATION: 07/17/2020 PREOPERATIVE DIAGNOSIS: Right knee septic prepatellar bursitis. POSTOPERATIVE DIAGNOSIS: Right knee septic prepatellar bursitis. PROCEDURES: Right knee resection of septic prepatellar bursa. SURGEON: Luke Ballesteros DO. SPORT PSYCHOLOGIST: Obed Rojas PA-C who was present for patient positioning, sterile prep and drape, management of retractors and instruments. He was present through the critical portions of the case including wound closure, application of sterile dressing and transport of the patient to recovery. ANESTHESIA: General with local. SPECIMENS: Aerobic, anaerobic, Gram stain, right knee septic prepatellar bursa. DRAINS: Hemovac x1. COMPLICATIONS: None. BLOOD LOSS: 5 mL. PERTINENT HISTORY: This is a 65-year-old gentleman who had complaints of 3-4 days of right knee worsening pain and swelling in the anterior aspect of the knee. He states that he was helping a friend feeds some cows. He may have had a minor injury to it. He also suspected possible spider bite; however, he cannot identify any spider that he had actually seen. The patient presented to [facility] ER, ER physician evaluated him and then consulted Orthopedics. The patient also noted to have a blood sugar over 600 and was then admitted to the hospital for medical stabilization and then preparation and optimization for right knee surgery due to his painful septic bursitis of the right knee. Laboratories demonstrate a markedly elevated C-reactive protein and sed rate consistent with septic bursitis with a red hot, swollen, painful anterior right knee. The patient was scheduled for surgery as indicated. All potential risks, benefits, complications, alternatives, rehab potential for incomplete relief of symptoms, need for further surgery, DVT, PE, , persistent pain, swelling, scarring, weakness, neurovascular injury, wound complications, need for further surgery and revision washout were discussed with the patient. The patient decided to proceed with the procedure as indicated. DESCRIPTION OF PROCEDURE: The patient was taken to the operative suite and placed supine on the operating room table. After review of consent and identification of proper operative site, the patient was anesthetized, LMA was placed. Tourniquet was placed high on the right thigh over cast padding. Right lower extremity was then sterilely prepped and draped in usual fashion, elevated and tourniquet inflated to 350 mmHg. There was no exsanguination performed due to the nature of the infection. Next, the anterior midline incision was made centered over the prepatellar bursa on the right knee, which was markedly swollen and tense. This was then incised and the skin and subcutaneous tissue. Meticulous hemostasis was achieved with electrocautery. The bursal sac was identified and attempt was made to spare the complete sac; however, due to the chronic inflammation of the bursa. The sac ruptured and this was then cultured, aerobic, anaerobic, Gram stain, sent off for specimen and the bursa sac was then evacuated of milky reddish fluid rajwinder to Corinna quick. The bursa was then clearly defined with a 10 blade scalpel dissection and then excised in its entirety. Next, a large curette was then used to curettage the soft tissues to assure resection of all infected tissue. Next, the site was then copiously irrigated with pulsatile lavage with 3 liters of Ancef and the top gloves were then changed followed by insertion of a 10-Romanian single lumen Hemovac drain and then closure of the incision with interrupted 3-0 nylon sutures. Next, the local tissue was then infiltrated with 0.5% Marcaine plain followed by placement of a sterile compressive dressing of Xeroform gauze, sterile 4 x 4's, ABD pad, Webril and an Jhoan wrap. The tourniquet was released. The patient was awakened and taken to recovery in stable condition. I attest to the content of the Intraoperative Record and any orders documented therein. Any exception s are noted below.
[2020-07-17] MEDS ORDERED: INSULIN GLARGINE SOLOSTAR 100 UNITS/ML 3 ML PEN SC ONE (15:00)
--- NOTE | 2020-07-17 20:23 | Billing Data ---
Date of Service July 17, 2020 Coding Level of Care Code 44937 Initial Inpt Care Lvl 3
[2020-07-17] MEDS: DOCUSATE SODIUM 100 MG CAP PO SCH (21:05)
[2020-07-17] MEDS: SENNA 8.6 MG TAB PO SCH (21:05)
[2020-07-18] MEDS: oxyCODONE HCL IR 5 MG TAB (IMMEDIATE RELEASE) PO PRN ×4 (03:45→21:18)
[2020-07-18] MEDS: METOPROLOL TARTRATE 1 MG/ML VIAL IV PRN (05:32)
[2020-07-18] MEDS: LEVOTHYROXINE SODIUM 125 MCG TABLET PO SCH (05:36)
[2020-07-18 06:46] LABS: Hematocrit (blood only) 38.1 % (42-52); Hemoglobin 13.2 g/dL (14.0-18.0); Mean Corpuscular Hemoglobin 30.1 pg (25-34); Mean Corpuscular Hgb Conc 34.6 g/dL (32-36); Platelet Count 240 K/uL (130-400); RDW Coefficient of Variation 12.3 % (11.5-14.5); RDW Standard Deviation 39.7 fL (36.4-46.3); Red Blood Count 4.38 M/uL (4.7-6.1); White Blood Count 8.19 K/uL (4.8-10.8)
[2020-07-18 07:04] LABS: BUN Creatinine Ratio 18.6 (10-20); Creatinine Clr Calc Pharmacy 128.5 ml/min; Est GFR (African American) 114.8; Potassium 3.2 mmol/L (3.5-5.1)
--- NOTE | 2020-07-18 07:40 | Orthopedic Progress Note ---
Date of Service July 18, 2020 Assessment & Plan (1) Septic prepatellar bursitis: POD#1 right prepatellar bursa I&D and bursectomy. Pain management as written. Patient may be weightbearing as tolerated right lower extremity. Hemoglobin this morning stable at 13. 2. Gram stain showing gram positive cocci in clusters, culture pending. Continue IV antibiotics. Plan on dressing change tomorrow. Admission and Anticipated Discharge Date Admission Date: July 16, 2020 Subjective Patient is POD#1 right knee I&D. He is doing well this morning, however is having a lot of pain with movement of his knee. Controlled with ordered pain medication. Denies fever, chills, chest pain, sob, dizziness, headache, n/v/d. Review of Systems Review of Systems: All systems reviewed & are unremarkable except as noted in HPI & below Physical Exam Physical Exam: Patient resting in bed comfortably. Pain with gentle ROM to right knee. Dressing is c/d/i. Hemovac intact and suctioning. No calf tenderness. Toes mobile with good dorsiflexion. Distally n/v status and sensation intact. Constitutional: well developed and well nourished; no acute distress Results & Data ([facility]) Vital Signs (Past 12 Hours) Vital Signs Temp Pulse Pulse Resp BP BP Pulse Ox 07/18/20 07:15 36.7 C 76 18 147/105 H 109 H 07/18/20 05:32 151 H 07/18/20 03:34 37.2 C 106 H 18 153/97 H 94 07/18/20 01:00 119 H 07/17/20 23:26 36.8 C 103 H 18 182/79 H 91 07/17/20 20:07 37.0 C 104 H 20 134/83 92 Laboratory Results Name: HEBER ADAIR Acct: [id number] Status: ADM IN : 1955 [facility] [place] Date: 07/16/20 Age: 65 Sex: M Dis Date: Loc: [address]/Bed: N288-1 Spec: [id number] Collected: 07/17/20 Received: 07/17/[address]: Luke Balelsteros,D.O. Copy To: Benny Sanderson MD Source: Knee,Right OV Order: Ordered: Aer/Denise Cult/Sm Comments: Comment 1) Right Knee Bursa Procedure Result Verified Site Gram Stain Final 07/18/20 Gram Stain Result Many Polys Moderate Gram Positive Cocci In Clusters Aero/Denise Cult PENDING H & H 07/16/20 07/17/20 07/18/20 Range/Units 16:06 06:00 06:20 Hgb 14.3 13.6 L 13.2 L (14.0-18.0) g/dL Hct 40.2 L 38.7 L 38.1 L (42-52) % (1) Septic prepatellar bursitis Laterality: right Qualified Code(s): M71.161 - Other infective bursitis, right knee
[2020-07-18] MEDS ORDERED: POTASSIUM CHLORIDE CRTAB 20 MEQ TABCR PO ONE (07:45)
[2020-07-18] MEDS ORDERED: VANCOMYCIN CONSULT ACTIVE PRN (07:57)
[2020-07-18] MEDS: INSULIN ASPART 100 UNITS/ML 3 ML PEN SC SCH ×4 (08:16→21:08)
[2020-07-18] MEDS: DOCUSATE SODIUM 100 MG CAP PO SCH ×2 (08:17→21:12)
[2020-07-18] MEDS: HEPARIN SOD 5,000 UNIT/0.5 ML VIAL SQ SCH ×2 (08:17→21:13)
[2020-07-18] MEDS: ASPIRIN 81 MG ECTAB PO SCH (08:17)
[2020-07-18] MEDS: METOPROLOL SUCC 50MG EXT REL TAB PO SCH (08:17)
[2020-07-18] MEDS: MULTIVITAMIN TAB PO SCH (08:17)
[2020-07-18] MEDS ORDERED: VANCOMYCIN HCL 2,500 MG in SODIUM CHLORIDE 0.9% 500 ML IV SCH (09:00)
--- NOTE | 2020-07-18 10:50 | Pharmacy Report ---
Pharmacy Abx Dose Short Note - Date of Service July 18, 2020 - Assessment & Plan Assessment 65 year old male admitted with septic bursitis now s/p I&D. Postop cultures pending. Patient on vancomycin and cefepime. Plan Vancomycin * Received loading dose of vancomycin 2500 mg x 1 this AM (~24 mg/kg/dose) * Started on vancomycin 1250 mg iv q 8 hrs to achieve estimated level ~15 mcg/ml * Awaiting finalized culture results, likely can deescalate once return * Estimated kinetics: t1/2~<8 hrs ke~0.08, crcl >100 Pharmacy will continue to follow and will adjust dose/frequency as necessary. Thank you.
[2020-07-18] MEDS ORDERED: GLUCOSE 10 TABS/TUBE PO PRN (11:00)
[2020-07-18] MEDS ORDERED: CARBOHYDRATES FOR HYPOGLYCEMIA PO PRN (11:00)
[2020-07-18] MEDS ORDERED: GLUCOSE 40% GEL 15 GM TUBE PO PRN (11:00)
[2020-07-18] MEDS ORDERED: DEXTROSE 50% 50 ML SYRINGE IV PRN (11:00)
[2020-07-18] MEDS ORDERED: GLUCAGON FOR INJ 1 MG VIAL SQ PRN (11:00)
--- NOTE | 2020-07-18 12:36 | Hospitalist Progress Note ---
Date of Service July 18, 2020 Assessment & Plan (1) Septic arthritis: Lars Kumar is a 65-year-old with PMH significant for diabetes, tobacco use, hypothyroidism; who presents to the ED for concerns of right knee pain/swelling over the last several days. Septic arthritis: -Concern for septic arthritis versus septic cellulitis given the appearance of the overlying tissue of the right knee -Elevated ESR, CRP on admission; no elevation of WBCs -XR right knee demonstrating extensive prepatellar effusion -CT right knee demonstrating complex enhancing prepatellar fluid collection with thick septations; concerning for complex bursitis versus abscess -POD#1 right prepatellar bursa I&D and bursectomy / -Gram stain showing gram positive cocci in clusters, culture pending -Continue Vanc, dc'd Cefepime -appreciate Ortho consult -PT/OT- pt may need short term rehab admission depending on progress with gait, lives alone DM2/Hyperglycemia: -pt is a very poor diabetic. Extensive education and counseling given to pt -Glucose on admission of 628. Beta hydroxybutyrate up to 27.4 -A1c 10.7 this admission -No anion gap making DKA unlikely at this point time; poor glucose control potentially secondary to infection as above -Received 10 units IV insulin in ED -Hold home Metformin. Sliding scale insulin at this point time and sugars better controlled at this point Atrial fibrillation: -Continue to observe on telemetry -EKG in the ED demonstrating A. fib with RVR and frequent PVCs -No known history of arrhythmias -CHADS-VASC2 score of 2 placing at moderate high and rec anticoagulation. HAS- BLED score of 2 placing at moderate risk for bleeding -Tachycardia in setting of infection and pain. Will hold off on anticoagulation for now, but will need to be started prior to d/c -Cont metoprolol succinate 50 mg. Lopressor 5 mg IV every 5 minutes as needed for tachycardia Hypothyroidism -cont levothyroxine HTN -cont metoprolol succinate as above Diet: DM2 Diet CODE STATUS: Full code DVT prophylaxis: Heparin SQ Dispo: MedSurg with telemetry Admission and Anticipated Discharge Date Admission Date: July 16, 2020 Supervising Physician Co-Signing Physician Notes I personally examined the patient and verified all sanders points of history and exam, discussed case, and agree with decision making with Dr Farooq. Knee hurts with movement. No other new complaints. Discussed diabetes extensively. He is either invasive or has very poor recall on his diet, but what he does relate includes meals at [employer] with sweet tea. Vitals noted, in general he is awake and pleasant, no distress. HEENT normocephalic atraumatic mucous membranes moist, very poor dentition. Breathing unlabored no accessory muscle use good effort. No focal neuro deficits. Right leg dressed with a very bulky dressing, no tracking erythema. Septic bursitiscontinue gram-positive coverage, anticipate being able to streamline this as cultures finalized. Appreciate surgical care as well. Uncontrolled type 2 diabeteseducated extensively. While he either has poor recall or is a bit evasive in his diet history, he does admit to "being a carbaholic" and as we discussed things further he expresses understanding of the critical importance of diet and control of diabetes. Made sure to educate him in regards to hyperglycemia causing immune suppressioni.e. his A1c of 10.7 being very real to why he is here with septic bursitis, and also discussed the importance of hyperglycemic microvascular ischemiaparticularly giving it to him in the context of future heart attacks and strokes. Continue to titrate insulin management, anticipate need for massive lifestyle change on discharge. Atrial fibrillationrates showing reasonable control now. Will need anticoagulation by discharge. DVT prophylaxisheparin subcu Subjective Pt seen at bedside, no acute overnight events. Pain 2/10, controlled. Denies fever, chills, sweats, n/v/d. No other acute concerns or complaints. Review of Systems Review of Systems: All systems reviewed & are unremarkable except as noted in HPI & below Physical Exam Constitutional: WD/WN, vitals as above Eyes: PERRL, conjunctivae normal, anicteric sclerae ENMT: external ear and nose normal, oropharynx normal Respiratory: normal respiratory effort, lungs clear to auscultation Cardiovascular: Rate/Rhythm: regular rate and + tachycardic Gastrointestinal (Abdomen): normal bowel sounds, soft, nontender, no hepatosplenomegaly Musculoskeletal: dressing C/D/I Skin: no rashes, warm and dry Psychiatric: A+Ox3, euthymic affect Results & Data Results & Data ([facility]) Vital Signs (Past 12 Hours) Vital Signs Temp Pulse Pulse Pulse Resp BP Pulse Ox 07/18/20 11:13 36.9 C 96 H 18 132/84 97 07/18/20 11:11 101 H 07/18/20 07:45 113 H 150/94 H 07/18/20 07:15 36.7 C 76 18 162/101 H 96 07/18/20 05:32 151 H 07/18/20 03:34 37.2 C 106 H 18 153/97 H 94 07/18/20 01:00 119 H Laboratory Results Laboratory Results - last 24 hr 07/17/20 07/17/20 07/17/20 18:36 18:37 18:38 WBC RBC Hgb Hct MCV MCH MCHC RDW Std Deviation RDW Coeff of Robyn Plt Count MPV Sodium Potassium Chloride Carbon Dioxide Anion Gap BUN Creatinine Est Cr Clr Drug Dosing Est GFR ( Amer) Est GFR (Non-Af Amer) BUN/Creatinine Ratio Glucose POC Glucose 586 H* 282 H 271 H Calcium 07/17/20 07/18/20 07/18/20 20:51 06:20 06:20 WBC 8.19 RBC 4.38 L Hgb 13.2 L Hct 38.1 L MCV 87.0 MCH 30.1 MCHC 34.6 RDW Std Deviation 39.7 RDW Coeff of Robyn 12.3 Plt Count 240 MPV 9.0 Sodium 138 Potassium 3.2 L Chloride 104 Carbon Dioxide 31 Anion Gap 3.0 BUN 13 Creatinine 0.70 Est Cr Clr Drug Dosing 128.5 Est GFR ( Amer) 114.8 Est GFR (Non-Af Amer) 99.0 BUN/Creatinine Ratio 18.6 Glucose 111 H POC Glucose 285 H Calcium 8.0 L 07/18/20 07/18/20 07:35 11:29 WBC RBC Hgb Hct MCV MCH MCHC RDW Std Deviation RDW Coeff of Robyn Plt Count MPV Sodium Potassium Chloride Carbon Dioxide Anion Gap BUN Creatinine Est Cr Clr Drug Dosing Est GFR ( Amer) Est GFR (Non-Af Amer) BUN/Creatinine Ratio Glucose POC Glucose 99 274 H Calcium Medications Administered Current Inpatient Medications Acetaminophen (Acetaminophen 1000 Mg/100 Ml Iv) 1,000 mg IV Q8H PRN PRN Reason: Pain or Fever Stop: 07/19/20 22:03 Last Admin: 07/17/20 01:04 Dose: 1,000 mg Documented by: Al Hydrox/Mg Hydrox/Simethicone (Aluminum/Magnesium Susp 30 Ml Udc) 30 ml PO Q6H PRN PRN Reason: Dyspepsia Stop: 08/15/20 22:03 Aspirin (Aspirin 81 Mg Ectab) 81 mg PO DAILY JOSELITO Stop: 08/16/20 08:59 Last Admin: 07/18/20 08:17 Dose: 81 mg Documented by: Bisacodyl (Bisacodyl 10 Mg Supp) 10 mg MA DAILY PRN PRN Reason: Constipation Stop: 08/16/20 10:29 Dextrose (Dextrose 50% 50 Ml Syringe) 25 - 50 ml IV UD PRN; Protocol PRN Reason: Hypoglycemia Protocol Stop: 08/15/20 22:03 Docusate Sodium (Docusate Sodium 100 Mg Cap) 100 mg PO BID JOSELITO Stop: 08/16/20 20:59 Last Admin: 07/18/20 08:17 Dose: 100 mg Documented by: Glucagon (Glucagon For Inj 1 Mg Vial) 1 mg SQ UD PRN; Protocol PRN Reason: Hypoglycemia Protocol Stop: 08/15/20 22:03 Glucose (Glucose 10 Tabs/Tube) 4 - 8 tabs PO UD PRN; Protocol PRN Reason: Hypoglycemia Protocol Stop: 08/15/20 22:03 Glucose (Glucose 40% Gel 15 Gm Tube) 15 - 30 gm PO UD PRN; Protocol PRN Reason: Hypoglycemia Protocol Stop: 08/15/20 22:03 Heparin Sodium (Porcine) (Heparin Sod 5,000 Unit/0.5 Ml Vial) 5,000 units SQ Q12 JOSELITO Stop: 08/16/20 08:59 Last Admin: 07/18/20 08:17 Dose: 5,000 units Documented by: Hydromorphone HCl (Hydromorphone Inj 0.5 Mg/0.5 Ml Syr) 0.5 mg IV Q4H PRN PRN Reason: Pain or Pre PT Stop: 07/31/20 10:29 Last Admin: 07/17/20 23:24 Dose: 0.5 mg Documented by: Cefepime HCl 2,000 mg/ Syringe 20 mls @ 5 mls/min IV Q12H JOSELITO; Protocol Stop: 08/28/20 00:00 Last Admin: 07/17/20 23:27 Dose: 5 mls/min Documented by: Vancomycin HCl 1,250 mg/ (Sodium Chloride) 275 mls @ 200 mls/hr IV Q8H JOSELITO; Protocol Stop: 07/25/20 17:59 Insulin Aspart (Insulin Aspart 100 Units/Ml 3 Ml Pen) 0 units SC ACHS [facility] Stop: 08/17/20 11:29 Insulin Glargine (Insulin Glargine Solostar 100 Units/Ml 3 Ml Pen) 23 units SC BID [facility] Stop: 08/17/20 20:59 Levothyroxine Sodium (Levothyroxine Sodium 125 Mcg Tablet) 125 mcg PO DAILYBB [facility] Stop: 08/16/20 06:29 Last Admin: 07/18/20 05:36 Dose: 125 mcg Documented by: Magnesium Hydroxide (Magnesium Hydroxide Susp 30 Ml Udc) 30 ml PO Q6H PRN PRN Reason: Constipation Stop: 08/16/20 10:29 Metoclopramide HCl (Metoclopramide Hcl Inj 5 Mg/Ml 2 Ml Vial) 10 mg IV Q6H PRN PRN Reason: Nausea And Vomiting Stop: 08/16/20 10:29 Metoprolol Succinate (Metoprolol Succ 50mg Ext Rel Tab) 50 mg PO DAILY [facility] Stop: 08/16/20 08:59 Last Admin: 07/18/20 08:17 Dose: 50 mg Documented by: Metoprolol Tartrate (Metoprolol Tartrate 1 Mg/Ml Vial) 5 mg IV Q5M PRN PRN Reason: Tachycardia Stop: 08/15/20 21:53 Last Admin: 07/18/20 05:32 Dose: 5 mg Documented by: Miscellaneous (Carbohydrates For Hypoglycemia ) 15 - 30 gm PO UD PRN PRN Reason: Hypoglycemia Protocol Stop: 08/15/20 22:03 Miscellaneous Information (Vancomycin Consult Active) 1 ea N/A UD PRN PRN Reason: Consult Stop: 08/17/20 07:56 Multivitamins (Multivitamin Tab) 1 tab PO QAM [facility] Stop: 08/17/20 08:59 Last Admin: 07/18/20 08:17 Dose: 1 tab Documented by: Naloxone HCl (Naloxone Hcl 0.4 Mg/1 Ml Vial/Carp) 0.1 mg IV Q5M PRN PRN Reason: Oversedation/Resp Depression Stop: 08/16/20 10:29 Ondansetron HCl (Ondansetron Inj 2 Mg/Ml 2 Ml Vial) 4 mg IV Q6H PRN PRN Reason: Nausea And Vomiting Stop: 08/16/20 10:29 Oxycodone HCl (Oxycodone Hcl Ir 5 Mg Tab (Immediate Release)) 5 - 10 mg PO Q4H PRN PRN Reason: Pain or Pre PT Stop: 07/31/20 10:29 Last Admin: 07/18/20 08:16 Dose: 10 mg Documented by: Polyethylene Glycol (Polyethylene (Miralax) 17 Gm Pack) 17 gm PO DAILY PRN PRN Reason: Constipation Stop: 08/15/20 22:03 Sennosides (Senna 8.6 Mg Tab) 17.2 mg PO HS JOSELITO Stop: 08/16/20 20:59 Last Admin: 07/17/20 21:05 Dose: 17.2 mg Documented by: Tamsulosin HCl (Tamsulosin Hcl 0.4 Mg Cap) 0.4 mg PO QAM PRN PRN Reason: UNABLE to void Stop: 08/16/20 10:29 Trazodone HCl (Trazodone Hcl 50 Mg Tab) 50 mg PO HS PRN PRN Reason: Sleep Stop: 08/15/20 22:03 Resident Activity Tracking Resident Involvement: Resident Care Provided Care Provided: Adult [facility] Medicine (1) Septic arthritis Laterality: right Septic arthritis location: knee Septic arthritis organism: due to unspecified organism Qualified Code(s): M00.9 - Pyogenic arthritis, unspecified
[2020-07-18] MEDS: CEFEPIME 2,000 MG in SYRINGE 0 ML IV SCH (12:49)
--- NOTE | 2020-07-18 14:49 | Billing Data ---
Date of Service July 18, 2020 Coding Level of Care Code 05046 Subseq Hosp Care Lvl 3
[2020-07-18] MEDS: VANCOMYCIN HCL 1,250 MG in SODIUM CHLORIDE 0.9% 250 ML IV SCH (17:27)
--- NOTE | 2020-07-18 20:50 | Electrocardiogram Report ---
Test Reason : Blood Pressure : / mmHG Vent. Rate : 135 BPM Atrial Rate : 077 BPM P-R Int : 000 ms QRS Dur : 128 ms QT Int : 364 ms P-R-T Axes : 000 -20 -06 degrees QTc Int : 546 ms Atrial fibrillation Right bundle branch block Abnormal ECG When compared with ECG of 01-JUN-2016 23:56, Atrial fibrillation is now Present T wave inversion more evident in Anterior leads Confirmed by Benjie Quach ([id number]) on 07/18/2020 8:50:03 PM Referred By: REFERRED SELF Confirmed By:Benjie Quach
[2020-07-18] MEDS: SENNA 8.6 MG TAB PO SCH (21:12)
[2020-07-18] MEDS: INSULIN GLARGINE SOLOSTAR 100 UNITS/ML 3 ML PEN SC SCH (21:15)
[2020-07-19] MEDS: VANCOMYCIN HCL 1,250 MG in SODIUM CHLORIDE 0.9% 250 ML IV SCH (01:29)
[2020-07-19] MEDS: oxyCODONE HCL IR 5 MG TAB (IMMEDIATE RELEASE) PO PRN ×3 (01:29→22:17)
[2020-07-19] MEDS: LEVOTHYROXINE SODIUM 125 MCG TABLET PO SCH (05:54)
[2020-07-19 06:53] LABS: Basophils # (auto) 0.02 K/uL (0-0.2); Basophils % (auto) 0.3 %; Eosinophils # (auto) 0.28 K/uL (0-0.5); Eosinophils % (auto) 4.7 %; Hematocrit (blood only) 35.8 % (42-52); Hemoglobin 12.6 g/dL (14.0-18.0); Immature Granulocytes # (auto) 0.06 K/uL (0.00-0.02); Lymphocytes # (auto) 1.93 K/uL (1.2-3.4); Lymphocytes % (auto) 32.2 %; Mean Corpuscular Hemoglobin 30.3 pg (25-34); Mean Corpuscular Hgb Conc 35.2 g/dL (32-36); Mean Corpuscular Volume 86.1 fL (80-100); Monocytes # (auto) 0.45 K/uL (0.11-0.59); Monocytes % (auto) 7.5 %; Neutrophils # (auto) 3.25 K/uL (1.4-6.5); Neutrophils % (auto) 54.3 %; Platelet Count 260 K/uL (130-400); RDW Coefficient of Variation 12.3 % (11.5-14.5); Red Blood Count 4.16 M/uL (4.7-6.1); White Blood Count 5.99 K/uL (4.8-10.8)
[2020-07-19 07:28] LABS: BUN Creatinine Ratio 13.3 (10-20); Calcium 8.2 mg/dl (8.5-10.1); Creatinine Clr Calc Pharmacy 116.9 ml/min; Est GFR (African American) 110.4; Est GFR (Non-African American) 95.2; Potassium 3.3 mmol/L (3.5-5.1)
[2020-07-19 07:38] LABS: Thyroid Stimulating Hormone 2.05 uIu/ml (0.300-4.500)
[2020-07-19] MEDS ORDERED: POTASSIUM CHLORIDE CRTAB 20 MEQ TABCR PO STA (07:56)
[2020-07-19] MEDS: NAFCILLIN SODIUM 2,000 MG in DEXTROSE 5% 100 ML IV SCH ×4 (08:23→20:17)
[2020-07-19] MEDS: METOPROLOL SUCC 50MG EXT REL TAB PO SCH (08:25)
[2020-07-19] MEDS: ASPIRIN 81 MG ECTAB PO SCH (08:25)
[2020-07-19] MEDS: DOCUSATE SODIUM 100 MG CAP PO SCH ×2 (08:26→20:43)
[2020-07-19] MEDS: INSULIN GLARGINE SOLOSTAR 100 UNITS/ML 3 ML PEN SC SCH (08:26)
[2020-07-19] MEDS: MULTIVITAMIN TAB PO SCH (08:26)
[2020-07-19] MEDS: INSULIN ASPART 100 UNITS/ML 3 ML PEN SC SCH ×4 (08:31→20:31)
[2020-07-19] MEDS: HEPARIN SOD 5,000 UNIT/0.5 ML VIAL SQ SCH (08:31)
--- NOTE | 2020-07-19 12:01 | Medical Student Progress Note ---
Date of Service July 19, 2020 Assessment & Plan (1) Septic prepatellar bursitis: 1. Septic Prepatellar Bursitis Mr. Kumar is a 65-year-old male with a PMHx of poorly controlled T2DM who is 2 days s/p right knee prepatellar I&D and bursectomy secondary to septic prepatellar bursitis. * Wound specimen culture showed growth of MSSA on 07/19/20. Discontinue IV vancomycin and start IV Nafcillin due to lack of MRSA concern. Transition to PO Cephalexin prior to discharge and continue for 10 days. * Blood culture positive for gram positive cocci in clusters * TTE performed. No vegetations visualized. * PT/OT consult completed. [facility] to improve ambulation. * Pain management: IV hydromorphone discontinued 07/19/20. Initiated PO Oxycodone 2. Type 2 Diabetes Mellitus Patient has poorly controlled T2DM secondary to poor medication compliance and other lifestyle factors. He has received formal diabetes education during inpatient admission and the importance of outpatient follow up has been emphasized. * SSI for blood glucose control. Held home metformin * Modify home insulin regimen from Novolin 70/30 to Novolog for tighter blood glucose control * Received diabetes education * Follow up with PCP for monitoring of blood sugar and scheduling of annual eye and foot exams 3. Atrial Fibrillation Patient was found to be in atrial fibrillation with RVR during evaluation in the [facility] emergency department on 07/16/20. He did not have a previous diagnosis of atrial fibrillation. 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 * Telemetry monitoring * Started Metoprolol succinate 50 mg. IV Metoprolol tartrate administered during inpatient admission. Discontinued * PO Rivaroxaban 20 mg daily * TSH 2.05. Hypothyroidism adequately controlled with Levothyroxine * Patient endorses history of obstructive sleep apnea. Unable to tolerate CPAP. Discuss alternative treatment options with PCP including newer face mask options such as a nasal pillow. * TTE performed 07/19/20. EF 40-50%. Mild global hypokinesia and decreased function of LV. Moderate LV concentric hypertrophy. LA mildly dilated. Mild to moderate mitral regurgitation. Mild aortic root dilation. 4. Constipation Patient has not had a bowel movement since , 07/15. He is receiving medical management without concern for an obstruction. * Prescribed PO Sennosides and Docusate * Mild hypokalemia of 3.3 on 07/19/20. Repleted. 5. Hypertension * Prescribed Metoprolol succinate * Follow up with PCP and consider addition of an ACEi/ARB for tighter BP control and as part of diabetes management 6. Smokeless Tobacco Use Disorder Patient has a long history of chewing tobacco use with subsequent dental decay. Previous attempts at tobacco cessation were unsuccessful but Mr. Kumar is motivated to quit moving forward. * Discussed smokeless tobacco cessation * Recommend dental care Code Status: Full Code FEN: Potassium repletion. Normal diet. VTE PPx: PO Rivaroxaban [facility] Laterality: right Qualified Code(s): M71.161 - Other infective bursitis, right knee Admission and Anticipated Discharge Date Admission Date: July 16, 2020 Supervising Attestation Medical Student Supervision Note: I was personally present during medical student patient encounter and independently interviewed and examined the patient and verified the sanders history and physical, reviewed labs and image studies, discussed the case with Jg Floyd and agree with the findings and care plan. Prepatellar bursitis - switched abx to nafcillin new diagnosis of a fib - continue oral metoprolol, rivaroxaban. New onset systolic cardiomyopathy with concentric LVH - possibly from chronic a fib/untreated sleep apnea. will need to ischemic work up as well. follow. Subjective Mr. Kumar is doing well this morning. He rates his right knee pain at a 1/10 at rest but he endorses sharp pain with movement. He has not ambulated on the right knee. When out of bed, he states that he only stood on his left leg. He has not tried to move his right knee or perform range of motion exercises while in bed. He does not endorse any pain, tingling, or numbness of the right lower extremity below the knee. He also notes that he has not had a bowel movement since . He denies any abdominal pain, nausea, or vomiting and he endorses flatus. He does not currently have an urge to defecate. With regard to the newly diagnosed atrial fibrillation, Mr. Kumar does not endorse any awareness of an abnormal rhythm. He also denies chest pain or shortness of breath. He endorses a history of obstructive sleep apnea. He was previously prescribed a CPAP but he was unable to tolerate it. He does not currently use anything to manage his sleep apnea but he endorses continued episo yamila of nocturnal apnea that awaken him from sleep. Mr. Kumar also has a history of chewing tobacco use and poor dentition. He states that he was unsuccessful with previous attempts to quit. He states that he is very motivated to quit moving forward and he will receive dental care for desired tooth extractions and dentures. Review of Systems Constitutional: + fatigue and + insomnia (attributes to disturbances at night while in hospital); no fever, no chills and no weakness Eyes: no problem reported Ear, Nose, Mouth, Throat: as per Subjective / HPI Respiratory: as per Subjective / HPI Cardiovascular: as per Subjective / HPI Gastrointestinal: as per Subjective / HPI Physical Exam Constitutional: WD/WN, vitals as above no acute distress Eyes: PERRL, conjunctivae normal, anicteric sclerae ENMT: Mouth: + poor dentition Neck: normal visual inspection Respiratory: normal respiratory effort, lungs clear to auscultation Cardiovascular: Rate/Rhythm: + irregularly irregular Vessels: posterior tibial pulses present, dorsalis pedis pulses present and radial pulses present Extremities: no edema Gastrointestinal (Abdomen): normal bowel sounds, soft, nontender, no hepatosplenomegaly Skin: no rashes, warm and dry Psychiatric: A+Ox3, euthymic affect Results & Data ([facility]) Vital Signs (Past 12 Hours) Vital Signs Temp Pulse Resp BP Pulse Ox 07/19/20 07:45 36.5 C 92 H 18 141/95 H 95 Laboratory Results WBC 5.99, Hgb 12.6 Sodium 137, Potassium 3.3, Calcium 8.2, Glucose 203 BUN 10, Cr 0.77 TSH 2.05 Right knee wound specimen: Positive for Staph aureus. -Sensitivity testing: clindamycin, daptomycin, erythromycin, oxacillin, tetracycline, TMP-SMX
--- NOTE | 2020-07-19 12:06 | XCELERA ---
[id number]
--- NOTE | 2020-07-19 15:06 | Orthopedic Progress Note ---
Date of Service July 19, 2020 Assessment & Plan (1) Septic prepatellar bursitis: POD#2 right prepatellar bursa I&D and bursectomy. WBAT on RLE Continue IV antibx. Cx's as noted below. Pain management as written. Daily dressing changes. Admission and Anticipated Discharge Date Admission Date: July 16, 2020 Supervising Physician Co-Signing Physician Notes Patient seen and examined, agree with above assessment and plan. Subjective POD 2 Pt sitting up in bed. States his knee feels much better today. No new complaints. Pain controlled. Denies SOB,CP,LH. Physical Exam Physical Exam: Dressing removed. Hemovac discontinued. Incision well approximated. No purulent drainage. Darkened erythema around the patella and prepatellar area. Mildly tender on palpation. No obvious fluid collection. Wound redressed. Results & Data ([facility]) Vital Signs (Past 12 Hours) Vital Signs Temp Pulse Resp BP Pulse Ox 07/19/20 07:45 36.5 C 92 H 18 141/95 H 95 Diagnostic Findings Name: HEBER ADAIR Acct: [id number] Status: [place] 1955 [facility] [place]16/20 Age: 65 Sex: M Dis Date: Loc: [address]/Bed: [facility] Spec: [id number] Collected: 07/17/20 Received: 07/17/[address]: Luke Ballesteros,D.O. Copy To: Benny Sanderson MD Source: Knee,Right OV Order: Ordered: Aer/Denise Cult/Sm Comments: Comment 1) Right Knee Bursa Procedure Result Verified Site Gram Stain Final 07/18/20 Gram Stain Result Many Polys Moderate Gram Positive Cocci In Clusters Aero/Denise Cult Preliminary 07/19/20 Organism 1 Staphylococcus aureus Quantity Many Sens Sensitivities to Follow S aureus RX M.I.C. --- --------- Clindamycin S <=0.5 Daptomycin S <=0.5 Erythromycin S <=0.5 Oxacillin S <=0.25 Tetracycline S <=4 Trimeth/Sulfa S <=0.5/9.5 Vancomycin S 2 S = SENSITIVE I = INTERMEDIATE R = RESISTANT (1) Septic prepatellar bursitis Laterality: right Qualified Code(s): M71.161 - Other infective bursitis, right knee
[2020-07-19] MEDS: RIVAROXABAN 20 MG TAB PO SCH (17:22)
[2020-07-19] MEDS ORDERED: METOPROLOL TARTRATE 1 MG/ML VIAL IV PRN (17:23)
[2020-07-19] MEDS ORDERED: MELATONIN 3 MG TAB PO PRN (17:27)
[2020-07-19] MEDS: SENNA 8.6 MG TAB PO SCH (20:43)
[2020-07-19] MEDS ORDERED: Nursing to Pharmacy Communication SCH (20:45)
[2020-07-19] MEDS ORDERED: INSULIN GLARGINE SOLOSTAR 100 UNITS/ML 3 ML PEN SC ONE (21:00)
[2020-07-20] MEDS: NAFCILLIN SODIUM 2,000 MG in DEXTROSE 5% 100 ML IV SCH ×7 (00:02→23:18)
[2020-07-20] MEDS: LEVOTHYROXINE SODIUM 125 MCG TABLET PO SCH (06:28)
[2020-07-20 07:22] LABS: Basophils # (auto) 0.01 K/uL (0-0.2); Basophils % (auto) 0.2 %; Eosinophils # (auto) 0.29 K/uL (0-0.5); Eosinophils % (auto) 4.9 %; Hematocrit (blood only) 36.3 % (42-52); Hemoglobin 12.7 g/dL (14.0-18.0); Immature Granulocytes # (auto) 0.06 K/uL (0.00-0.02); Lymphocytes # (auto) 1.88 K/uL (1.2-3.4); Lymphocytes % (auto) 31.7 %; Mean Corpuscular Hemoglobin 30.1 pg (25-34); Mean Platelet Volume 8.7 fL (7.4-10.4); Monocytes % (auto) 8.4 %; Neutrophils # (auto) 3.19 K/uL (1.4-6.5); Neutrophils % (auto) 53.8 %; Platelet Count 231 K/uL (130-400); RDW Coefficient of Variation 12.4 % (11.5-14.5); RDW Standard Deviation 38.6 fL (36.4-46.3); Red Blood Count 4.22 M/uL (4.7-6.1); White Blood Count 5.93 K/uL (4.8-10.8)
[2020-07-20 08:00] LABS: BUN Creatinine Ratio 14.4 (10-20); Calcium 7.9 mg/dl (8.5-10.1); Creatinine Clr Calc Pharmacy 111.1 ml/min; Est GFR (African American) 108.1; Est GFR (Non-African American) 93.3; Potassium 3.6 mmol/L (3.5-5.1)
[2020-07-20] MEDS: ASPIRIN 81 MG ECTAB PO SCH (08:21)
[2020-07-20] MEDS: METOPROLOL SUCC 50MG EXT REL TAB PO SCH (08:21)
[2020-07-20] MEDS: DOCUSATE SODIUM 100 MG CAP PO SCH ×2 (08:21→21:23)
[2020-07-20] MEDS: MULTIVITAMIN TAB PO SCH (08:21)
[2020-07-20] MEDS: ATORVASTATIN 40 MG TAB PO SCH (08:21)
[2020-07-20] MEDS: oxyCODONE HCL IR 5 MG TAB (IMMEDIATE RELEASE) PO PRN ×3 (08:26→19:44)
[2020-07-20] MEDS: INSULIN ASPART 100 UNITS/ML 3 ML PEN SC SCH ×4 (08:33→21:27)
--- NOTE | 2020-07-20 11:10 | Cardiology Consultation ---
Date of Consultation July 20, 2020 Assessment & Plan (1) Atrial fibrillation: He has had atrial fibrillation since his presentation here July 16, 2020, it started (based on heart rate and his vital signs) sometime between October 2019 and his presentation here. From symptoms I cannot determine more precisely and that when it might of started. It may be affecting his left ventricular function. My recommendation would be to control his heart rate by going up on the metoprolol, continue anticoagulation and considering cardioversion after a month. I am going to increase his metoprolol to succinate to 100 mg daily and give him an extra dose of short acting now. He knows Dr. Rodriges and would prefer that he take over his care. (2) History of alcoholism: He has a history of alcoholism which could have caused his cardiomyopathy although that is unclear. He should refrain from drinking however. (3) Cardiomyopathy: He has a mild cardiomyopathy which is likely related to rapid heart rates for possibly substantial amount of time but we do not know what his ejection fraction was in the past. There is no evidence that this is ischemic and he does not have symptoms although if it does not respond readily to rate control I would recommend an evaluation for ischemia and other causes of nonischemic cardiomyopathy. With rate control his ejection fraction may rapidly recover. History of Present Illness Reason for Consultation: Atrial fibrillation with rapid ventricular response Attending Physician: Kita Recio MD History of Present Illness This is a 65-year-old male who has a history of diabetes mellitus, tobacco abu se, hypothyroidism, prostate cancer and alcoholism who noticed knee swelling and presented to the emergency room on July 16, 2020. He was observed to be in atrial fibrillation with a rapid heart rate on arrival, and electrocardiogram showed a ventricular rate of 135 bpm. He was on metoprolol succinate 50 mg daily at home I believe. He underwent surgery for a septic right knee prepatellar bursa on June 17, 2020. He did have an echocardiogram performed on July 19, 2020 which showed normal left ventricular size with mild global hypokinesis and ejection fraction of 45 to 50%. He also had moderate concentric left ventricular hypertrophy and moderate mitral regurgitation with moderate left atrial dilatation. During his hospitalization he has been maintained on metoprolol succinate 50 mg daily and Xarelto 20 mg daily for the atrial fibrillation. He is not aware of his arrhythmia, I question him in the detail about symptoms and he can provide me no symptoms regarding his atrial fibrillation. He remains unsure as to when it might of started. On October 20, 2019 his heart rate was 62 so he probably was not in that then. I do not have interim vital signs. I cannot tell more accurately when it might of started but sometime between October 20, 2019 and July 16, 2020. Allergies Allergy/AdvReac Type Severity Reaction Status Date / Time No Known Allergies Allergy Unverified 07/16/20 18:14 Home Medications Medication Instructions Recorded Confirmed Type aspirin 81 mg tablet,delayed 81 mg PO DAILY #30 tab 07/09/19 07/16/20 Rx release blood sugar diagnostic #10 ea 08/19/19 10/20/19 Rx levothyroxine 125 mcg tablet 125 mcg PO DAILY #30 tab 10/20/19 07/16/20 Rx metformin 500 mg tablet,extended 500 mg PO BID #60 tab 10/20/19 07/16/20 Rx release 24hr metoprolol succinate 50 mg capsule 50 mg PO DAILY #30 ea 10/20/19 07/16/20 Rx sprinkle, ext. release 24 hr insulin NPH isoph U-100 human 100 See Rx Instructions SUBCUT QAM #20 03/04/20 07/16/20 Rx unit/mL subcutaneous suspension ml insulin regular human 100 unit/mL 30 unit SUBCUT BID #20 ml 03/04/20 07/16/20 Rx injection solution trazodone 50 mg PO HS PRN 07/16/20 07/16/20 History Patient History Medical History Atrial fibrillation Cellulitis Diabetes History of alcoholism History of prostate cancer HTN (hypertension) Hyperlipidemia Hypothyroidism Insomnia Seborrheic dermatitis of scalp Septic arthritis Septic prepatellar bursitis Tobacco abuse Vitamin D deficiency Surgical History History of left knee surgery History of shoulder surgery Left Family History Mother Cancer Grandmother (Paternal) Stroke Grandfather (Paternal) Stroke Other Myocardial infarction Denies family history of Ovarian cancer Prostate cancer Breast cancer Colorectal cancer Social History Smoking Status: Former smoker Second Hand Exposure: No; Do You Dip or Chew Tobacco: Yes; Tobacco Cessation Education Requested by Patient: No Hx Alcohol Use: Yes Hx Substance Use: No Preferred Language: Finnish Communication Ability: Effective Burn Out Tender Lace Required: No Beliefs That Will Affect Care: None marital status: Single Current Living Situation: Alone current occupational status: employed Other Information That Helps Us Care for You: No Feels Safe at Home: Yes Safety Concerns: Feels Safe At This Time Childhood Exposure to Second-Hand Smoke: No caffeine: Yes (iced tea ) Dental Care, Regularly: No Physical Activity Frequency: 1-2 Times per Week Seatbelt Use: always Sunscreen Use: No Assistive Devices: Walker Physical Exam Physical Exam: Constitutional: Alert, cooperative and in no distress. HEENT: Unremarkable Neck: No jugular venous distention, carotid pulses are irregular but otherwise normal and equal bilaterally without bruits. Pulmonary: Clear to auscultation bilaterally. Cardiac: Irregular rhythm with no murmur, gallop or rub. Abdomen: Soft, nontender with normal bowel sounds. Extremities: No edema. Distal pulses intact. Neurologic: No focal findings. Gait is steady. Skin: No rash, ecchymoses or petechiae. Results & Data ([facility]) Vital Signs (Past 12 Hours) Vital Signs Temp Pulse Resp BP Pulse Ox 07/20/20 08:07 36.5 C 104 H 18 167/97 H 96 07/20/20 04:19 36.7 C 85 18 136/81 96 07/19/20 23:11 36.9 C 104 H 18 139/94 96 Laboratory Results CBC 07/20/20 Range/Units 07:07 WBC 5.93 (4.8-10.8) K/uL RBC 4.22 L (4.7-6.1) M/uL Hgb 12.7 L (14.0-18.0) g/dL Hct 36.3 L (42-52) % Plt Count 231 (130-400) K/uL Neut # (Auto) 3.19 (1.4-6.5) K/uL Lymph # (Auto) 1.88 (1.2-3.4) K/uL Starke # (Auto) 0.50 (0.11-0.59) K/uL Eos # (Auto) 0.29 (0-0.5) K/uL Baso # (Auto) 0.01 (0-0.2) K/uL Comprehensive Metabolic Panel 07/20/20 Range/Units 07:07 Sodium 139 (136-145) mmol/L Potassium 3.6 (3.5-5.1) mmol/L Chloride 106 (98-107) mmol/L Carbon Dioxide 27 (21-32) mmol/L BUN 12 (7-18) mg/dl Creatinine 0.81 (0.6-1.4) mg/dl Glucose 230 H (70-99) mg/dl Calcium 7.9 L (8.5-10.1) mg/dl Intake and Output 07/19/20 07/20/20 07/20/20 22:59 06:59 14:59 Intake Total 896 / 1328 216 / 1328 108 / 108 Output Total 1350 / 1675 300 / 1675 430 / 430 Balance -454 / -347 -84 / -347 -322 / -322 Intake: IV 216 / 648 216 / 648 108 / 108 Nafcillin Sodium 2,000 mg In 216 / 648 216 / 648 108 / 108 Dextrose 5% 100 ml @ 100 mls/hr IV Q4H JOSELITO Rx#:[id number] Oral 680 / 680 Output: Urine 1350 / 1650 300 / 1650 430 / 430 PG Care Time/CCT Total # of Minutes Spent Total Time Spent with Patient: Total time spent is greater than 50% in coordination of care (as documented) at patient's floor/unit and/or counseling patient: Coding Level of Care Code 02328 Inpt Consult Level 4 Diagnoses Atrial fibrillation I48.91 Atrial fibrillation type: unspecified History of alcoholism F10.21 Cardiomyopathy I42.9 (1) Atrial fibrillation Atrial fibrillation type: unspecified Qualified Code(s): I48.91 - Unspecified atrial fibrillation
--- NOTE | 2020-07-20 14:45 | Medical Student Progress Note ---
Date of Service July 20, 2020 Assessment & Plan (1) Septic prepatellar bursitis: 1. Septic Prepatellar Bursitis Mr. Kumar is a 65-year-old male with a PMHx of poorly controlled T2DM who is 2 days s/p right knee prepatellar I&D and bursectomy secondary to septic prepatellar bursitis. * Wound specimen culture showed growth of MSSA on 07/19/20. Discontinue IV vancomycin and start IV Nafcillin due to lack of MRSA concern. Transition to PO Cephalexin prior to discharge and continue for 10 days. * Blood culture positive for gram positive cocci in clusters * TTE performed. No vegetations visualized. * PT/OT consult completed. Patient scheduled for rehabilitation at [facility] following discharge to improve ambulation. * Pain management: IV hydromorphone discontinued 07/19/20. Initiated PO Oxycodone * Hemovac discontinued 07/20/20. Continue daily dressing changes * Weight bearing as tolerated per orthopedics recommendation 2. Type 2 Diabetes Mellitus Patient has poorly controlled T2DM secondary to poor medication compliance and other lifestyle factors. He has received formal diabetes education during inpatient admission and the importance of outpatient follow up has been emphasized. * SSI for blood glucose control. Held home metformin * Modify home insulin regimen from Novolin 70/30 to Novolog for tighter blood glucose control * Received diabetes education * Follow up with PCP for monitoring of blood sugar and scheduling of annual eye and foot exams 3. Atrial Fibrillation Patient was found to be in atrial fibrillation with RVR during evaluation in the [facility] emergency department on 07/16/20. He did not have a previous diagnosis of atrial fibrillation. Rate control with anticoagulation has been initiated after weighing the risk-benefit of penitentiary anticoagulation. * Started Metoprolol succinate 50 mg. Consider increasing dose for tighter rate control and blood pressure control if heart rate and blood pressure remain elevated. * PO Rivaroxaban 20 mg daily * TSH 2.05. Hypothyroidism adequately controlled with Levothyroxine * Patient endorses history of obstructive sleep apnea. Unable to tolerate CPAP. Discuss alternative treatment options with PCP including newer face mask options such as a nasal pillow. * Cardiology Consult appreciated. * TTE performed 07/19/20. EF 45-50%. Mild global hypokinesia and decreased function of LV. Moderate LV concentric hypertrophy. LA mildly dilated. Mild to moderate mitral regurgitation. Mild aortic root dilation. RV systolic function normal. 4. Constipation Patient has not had a bowel movement since 07/15. He is receiving medical management without concern for an obstruction. * Prescribed PO Sennosides and Docusate * Mild hypokalemia of 3.3 on 07/19/20. Repleted. 5. Hypertension * Prescribed Metoprolol succinate * Follow up with PCP and consider addition of an ACEi/ARB for tighter BP control and as part of diabetes management 6. Smokeless Tobacco Use Disorder Patient has a long history of chewing tobacco use with subsequent dental decay. Previous attempts at tobacco cessation were unsuccessful but Mr. Kumar is motivated to quit moving forward. * Discussed smokeless tobacco cessation * Recommend dental care Code Status: Full Code FEN: Normal diet. VTE PPx: PO Rivaroxaban Disposition: Rehabilitation at [facility] upon discharge Laterality: right Qualified Code(s): M71.161 - Other infective bursitis, right knee Admission and Anticipated Discharge Date Admission Date: July 16, 2020 Supervising Attestation Medical Student Supervision Note: I was personally present during medical student patient encounter and independently interviewed and examined the patient and verified the sanders history and physical, reviewed labs and image studies, discussed the case with Jg Floyd and agree with the findings and care plan. Continue IV antibiotics. Initiated oral anticoagulation and b binu - rate controlled. Blood sugars better controlled. Subjective . Mr. Kumar states that his right knee feels much better today. His right knee is wrapped in ice this morning, which he says has provided additional pain relief. He denies any pain at this time when immobile. During a PT session this morning, he was able to ambulate minimally and perform transient weight bearing on his right leg. He still endorses occasional pain with range of motion but he thinks his pain is currently adequately controlled. He does not endorse any chest pain, shortness of breath, ELLIS, fever, chills, or weakness at this time. The patient continues to experience constipation. He has not had a bowel movement since 07/15. He is not experiencing any abdominal pain, nausea, or vomiting, and he continues to endorse flatus. Review of Systems Constitutional: as per Subjective / HPI Respiratory: as per Subjective / HPI Cardiovascular: as per Subjective / HPI Gastrointestinal: as per Subjective / HPI Physical Exam Constitutional: WD/WN, vitals as above no acute distress Eyes: PERRL, conjunctivae normal, anicteric sclerae ENMT: Mouth: + poor dentition Neck: normal visual inspection Respiratory: normal respiratory effort, lungs clear to auscultation Cardiovascular: Rate/Rhythm: + irregularly irregular Vessels: posterior tibial pulses present, dorsalis pedis pulses present and radial pulses present Extremities: no edema Gastrointestinal (Abdomen): normal bowel sounds, soft, nontender, no hepatosplenomegaly Skin: no rashes, warm and dry Psychiatric: A+Ox3, euthymic affect Results & Data ([facility]) Vital Signs (Past 12 Hours) Vital Signs Temp Pulse Resp BP Pulse Ox 07/20/20 08:07 36.5 C 104 H 18 167/97 H 96 07/20/20 04:19 36.7 C 85 18 136/81 96
[2020-07-20] MEDS ORDERED: METOPROLOL TARTRATE 50 MG TAB PO STA (15:56)
[2020-07-20] MEDS: RIVAROXABAN 20 MG TAB PO SCH (17:35)
[2020-07-20] MEDS: ACETAMINOPHEN 325 MG TAB PO PRN (18:45)
[2020-07-20] MEDS: SENNA 8.6 MG TAB PO SCH (21:23)
[2020-07-20] MEDS: INSULIN GLARGINE SOLOSTAR 100 UNITS/ML 3 ML PEN SC SCH (21:26)
[2020-07-20] MEDS ORDERED: Nursing to Pharmacy Communication SCH (21:30)
[2020-07-21] MEDS: NAFCILLIN SODIUM 2,000 MG in DEXTROSE 5% 100 ML IV SCH ×3 (03:20→12:38)
[2020-07-21] MEDS: LEVOTHYROXINE SODIUM 125 MCG TABLET PO SCH (05:29)
[2020-07-21] MEDS: ACETAMINOPHEN 325 MG TAB PO PRN (05:29)
[2020-07-21 07:16] LABS: Basophils # (auto) 0.02 K/uL (0-0.2); Basophils % (auto) 0.3 %; Eosinophils # (auto) 0.27 K/uL (0-0.5); Eosinophils % (auto) 4.6 %; Hematocrit (blood only) 34.3 % (42-52); Hemoglobin 11.9 g/dL (14.0-18.0); Immature Granulocytes # (auto) 0.09 K/uL (0.00-0.02); Immature Granulocytes % (auto) 1.5 %; Lymphocytes # (auto) 1.54 K/uL (1.2-3.4); Lymphocytes % (auto) 26.4 %; Mean Corpuscular Hemoglobin 30.3 pg (25-34); Mean Corpuscular Hgb Conc 34.7 g/dL (32-36); Mean Corpuscular Volume 87.3 fL (80-100); Mean Platelet Volume 8.8 fL (7.4-10.4); Monocytes # (auto) 0.53 K/uL (0.11-0.59); Monocytes % (auto) 9.1 %; Neutrophils # (auto) 3.38 K/uL (1.4-6.5); Neutrophils % (auto) 58.1 %; Platelet Count 251 K/uL (130-400); RDW Coefficient of Variation 12.5 % (11.5-14.5); RDW Standard Deviation 40.5 fL (36.4-46.3); Red Blood Count 3.93 M/uL (4.7-6.1); White Blood Count 5.83 K/uL (4.8-10.8)
[2020-07-21] MEDS: INSULIN ASPART 100 UNITS/ML 3 ML PEN SC SCH ×2 (07:48→12:41)
[2020-07-21 07:55] LABS: Creatinine Clr Calc Pharmacy 102.2 ml/min; Est GFR (African American) 104.5; Est GFR (Non-African American) 90.1
[2020-07-21] MEDS: MULTIVITAMIN TAB PO SCH (07:57)
[2020-07-21] MEDS: ASPIRIN 81 MG ECTAB PO SCH (07:58)
[2020-07-21] MEDS: ATORVASTATIN 40 MG TAB PO SCH (07:58)
[2020-07-21] MEDS: DOCUSATE SODIUM 100 MG CAP PO SCH (08:03)
[2020-07-21] MEDS ORDERED: METOPROLOL SUCC 50MG EXT REL TAB PO SCH (09:00)
[2020-07-21] MEDS: INSULIN GLARGINE SOLOSTAR 100 UNITS/ML 3 ML PEN SC SCH (09:32)
--- NOTE | 2020-07-21 10:06 | Discharge Summary ---
Date of Service July 21, 2020 Admission HPI Per Admitting Provider Lars Kumar is a 65-year-old with PMH significant for diabetes, smokeless tobacco use, hypothyroidism; who presents to the ED for concerns of right knee pain/swelling over the last several days. First noticed the swelling and discomfort of his knee about 4 days ago, at that time he was walking to his woodpile when he tripped and hit his knee against something in the path. As the swelling and redness and pain continued he was discussing with friends and they thought maybe he was bitten by a spider. However he did not notice any bites or recall feeling a bite. As the swelling continued to enlarge and become incr easingly more painful decided to try ibuprofen 800 mg multiple times a day, Tylenol multiple times a day however neither 1 of these was effective in improving the swelling or the pain. As result of this presented to the ER. Admission Exam Per Admitting Provider Constitutional: WD/WN, vitals as above Eyes: PERRL, conjunctivae normal, anicteric sclerae Respiratory: normal respiratory effort, lungs clear to auscultation Auscultation: no crackles, no rales, no rhonchi and no wheezes Cardiovascular: Rate/Rhythm: regular rate and regular rhythm Heart Sounds: no gallop, no murmur and no cardiac rub Vessels: normal peripheral pulses; no JVD Extremities: no edema Gastrointestinal (Abdomen): Inspection/Auscultation: normal bowel sounds; abdomen not distended Percussion/Palpation: abdomen soft; abdomen nontender and no guarding Musculoskeletal: Knee: + knee abnormal to inspection, + effusion (extra-articular) and + skin erythema Neurologic: PERRL, EOMI, accommodation nl, no face palsy, no dysarthria CN's II-XI intact bilaterally and moves all extremities Psychiatric: Orientation: alert and oriented x 3 Principal Diagnosis Septic Bursitis Discharge Exam Constitutional WD/WN, vitals as above cooperative; no acute distress Eyes + anicteric sclerae ENMT external ear and nose normal, oropharynx normal Neck normal visual inspection and trachea midline Respiratory normal respiratory effort, lungs clear to auscultation Cardiovascular Rate/Rhythm: regular rate and + irregularly irregular Heart Sounds: normal S1 and normal S2 Gastrointestinal (Abdomen) normal bowel sounds, soft, nontender, no hepatosplenomegaly Musculoskeletal Knee: + surgical incision (bandage in place; no surrounding erythema) Skin no rashes, warm and dry Psychiatric A+Ox3, euthymic affect Discharge Data Allergies Allergy/AdvReac Type Severity Reaction Status Date / Time No Known Allergies Allergy Unverified 07/16/20 18:14 Consultations 07/16/20 17:53 ED Decision to Admit Stat 07/16/20 22:04 Consult Orthopedic Surgery Routine 07/20/20 10:05 Consult Cardiology Routine Procedures Performed Operation Date: 07/17/20 09:00 Actual Procedures p Right Knee Bursectomy(Right) - Luke Ballesteros DO Ordered Studies 07/16/20 19:59 CT knee RT w con Stat Diabetes Follow up Diabetes Follow-up Needed for HgbA1c >9% Hospital Course (1) Septic prepatellar bursitis: Mr. Kumar is a 65-year-old male with a PMHx of poorly controlled T2DM who was admitted for management of a septic right knee pre-patellar bursitis. 1. Septic Prepatellar Bursitis POD day 4 of right knee prepatellar I&D and bursectomy secondary to septic prepatellar bursitis. Hemovac discontinued 07/20/20. Wound specimen culture showed growth of MSSA on 07/19/20. 1/2 Blood culture positive for coag neg staph, presumed to be a contaminant. TTE performed: no vegetations visualized. Patient without indwelling devices. Patient was treated with IV antibiotics while in the hospital (6 days). Transition to PO Cephalexin prior to discharge. continue for total of 14 day course. Pain management with oral oxycodone. Wean to Tylenol as appropriate Continue daily dressing changes Acute rehab stay following hospital discharge 2. Type 2 Diabetes Mellitus - uncontrolled A1C 10.7 during hospital stay, up from 8.7 at previous check Patient reported he had switched from his basal-bolus insulin regimen to using NPH 70/30 insulin several months ago (he was given a free supply of NPH by a friend). Suspect worsening HbA1c is secondary to inappropriate dose adjustment when transitioning to NPH insulin. Modify home insulin regimen from Novolin 70/30 to basal-bolus dosing with Lantus and Novolog for tighter blood glucose control. Recommend Lantus 28 units BID for basal coverage and Novolog ACHS. Goal blood sugar 100-160. CF 15. Insulin to carb ratio 1:4. He may resume his home dose of Metformin 500mg BID Patient was started on a high intensity statin Follow up with PCP for monitoring of blood sugar and scheduling of annual eye and foot exams, urine microalbumin screening. Outpatient items to do: Repeat A1c 10/17/20. 3. Atrial Fibrillation Patient was found to be in atrial fibrillation with RVR during evaluation in the [facility] emergency department on 07/16/20. He did not have a previous diagnosis of atrial fibrillation. Cardiology was consulted and recommended initiation of anticoagulation with Xarelto 20mg, daily and rate control with metoprolol succinate 100mg, daily. As for etiology: TSH normal at 2.05. Untreated ZARIA is possible (patient endorses history of obstructive sleep apnea but was unable to tolerate CPAP). TTE performed 07/19/20. EF 45-50%. Mild global hypokinesia and decreased function of LV. Moderate LV concentric hypertrophy. LA mildly dilated. Mild to moderate mitral regurgitation. Mild aortic root dilation. RV systolic function normal. Although impossible to say with certainty, suspect patient has been in Afib with RVR prior to admission, as the elevated heart rate is a plausible cause for his reduced left ventricular function He was directed to follow up with [facility] cardiology as an outpatient for consideration of cardioversion after being anticoagulated for 4 weeks. Outpatient items to do: Discuss alternative treatment options for ZARIA including newer face mask options such as a nasal pillow. 4. Mild Cardiomyopathy Evident from ECHO report Likely related to rapid heart rates for possibly substantial amount of time. There is no evidence of ischemia and he does not have symptoms. Patient has a history of alcoholism which could have caused his cardiomyopathy although that is unclear. Recommend alcohol cessation. EF may improve with rate control (metoprolol) Outpatient items to do: if it does not respond readily to rate control, recommend an evaluation for ischemia and other causes of nonischemic cardiomyopathy. 5. Hypertension Prescribed Metoprolol succinate 100mg, daily for A fib to help with BP control. Outpatient items to do: consider addition of an ACEi/ARB for tighter BP control and as part of diabetes management (renoprotection) 6. Smokeless Tobacco Use Disorder Patient has a long history of chewing tobacco use with subsequent dental decay. Previous attempts at tobacco cessation were unsuccessful but Mr. Kumar is motivated to quit moving forward. Recommend dental care Outpatient items to do: continue tobacco cessation counseling and discuss nicotine replacement / pharmacotherapy options Total Time Total Time Spent Total Time Spent (In Minutes): see attending attestation Discharge Plan Discharge Items Patient Disposition: Transfer Inpatient Rehab Fac Reason For Visit: SEPTIC ARTHRITIS Discharge Diagnosis: septic bursitis Activity: Resume your previous activity Non-emergency contact: Primary Care Provider and Platform Supervisor Call non-emergency contact if: your symptoms worsen Follow-up/Referrals: Jg Valdez DO [Primary Care Provider] - Luke Ballesteros DO [Surgeon] - (follow up in 10-14 days for wound elieser ck/suture removal) Diet: Heart Healthy Addtl Attending Provider Instructions: Mr. Kumar is a 65-year-old male with a PMHx of poorly controlled T2DM who was admitted for management of a septic right knee pre-patellar bursitis. 1. Septic Prepatellar Bursitis POD day 4 of right knee prepatellar I&D and bursectomy secondary to septic prepatellar bursitis. Hemovac discontinued 07/20/20. Wound specimen culture showed growth of MSSA on 07/19/20. 1 of 2 blood cultures growing coag neg staph. TTE performed: no vegetations visualized. Patient was treated with IV antibiotics while in the hospital (6 days). Transition to PO Cephalexin prior to discharge. continue for total of 14 day course. Pain management with oral oxycodone. Wean to Tylenol as appropriate. Continue bowel regimen of senna, miralax and colace Continue daily dressing changes Acute rehab stay following hospital discharge 2. Type 2 Diabetes Mellitus - uncontrolled A1C 10.7 during hospital stay, up from 8.7 at previous check Patient reported he had switched from his basal-bolus insulin regimen to using NPH 70/30 insulin several months ago (he was given a free supply of NPH by a friend). Suspect worsening HbA1c is secondary to inappropriate dose adjustment when transitioning to NPH insulin. Modify home insulin regimen from Novolin 70/30 to basal-bolus dosing with Lantus and Novolog for tighter blood glucose control. Recommend Lantus 28 units BID for basal coverage and Novolog ACHS. Goal blood sugar 100-160. CF 15. Insulin to carb ratio 1:4. He may resume his home metformin dose of 500mg BID He was started on a high intensity statin while inpatient Follow up with PCP for monitoring of blood sugar and scheduling of annual eye and foot exams, urine microalbumin screening. Outpatient items to do: Repeat A1c 10/17/20. 3. Atrial Fibrillation Patient was found to be in atrial fibrillation with RVR during evaluation in the [facility] emergency department on 07/16/20. He did not have a previous diagnosis of atrial fibrillation. Cardiology was consulted and recommended initiation of anticoagulation with Xarelto 20mg, daily and rate control with metoprolol succinate 100mg, daily. As for etiology: TSH normal at 2.05. Untreated ZARIA is possible (patient endorses history of obstructive sleep apnea but was unable to tolerate CPAP). TTE performed 07/19/20. EF 45-50%. Mild global hypokinesia and decreased function of LV. Moderate LV concentric hypertrophy. LA mildly dilated. Mild to moderate mitral regurgitation. Mild aortic root dilation. RV systolic function normal. Although impossible to say with certainty, suspect patient has been in Afib with RVR prior to admission, as the elevated heart rate is a plausible cause for his reduced left ventricular function He was directed to follow up with [facility] cardiology as an outpatient for consideration of cardioversion after being anticoagulated for 4 weeks. Outpatient items to do: Discuss alternative treatment options for ZARIA including newer face mask options such as a nasal pillow. 4. Mild Cardiomyopathy Evident from ECHO report Likely related to rapid heart rates for possibly substantial amount of time. There is no evidence of ischemia and he does not have symptoms. Patient has a history of alcoholism which could have caused his cardiomyopathy although that is unclear. Recommend alcohol cessation. EF may improve with rate control (metoprolol) Outpatient items to do: if it does not respond readily to rate control, recommend an evaluation for ischemia and other causes of nonischemic cardiomyopathy. 5. Hypertension Prescribed Metoprolol succinate 100mg, daily Outpatient items to do: consider addition of an ACEi/ARB for tighter BP control and as part of diabetes management (renoprotection) 6. Smokeless Tobacco Use Disorder Patient has a long history of chewing tobacco use with subsequent dental decay. Previous attempts at tobacco cessation were unsuccessful but Mr. Kumar is motivated to quit moving forward. Recommend dental care Outpatient items to do: continue tobacco cessation counseling and discuss nicotine replacement / pharmacotherapy options Addtl Warp Coiler Provider Instructions: Daily dressing changes. Weightbearing as tolerated on the Right leg. Keep leg elevated on at least one pillow when at rest. Pending Studies at Discharge: No Stand-Alone Forms: My [facility] Skilled Items Patient informed of condition?: Yes DNR: No Discharge Level of Care: Acute rehab Communicable Disease: No Discharge Prognosis: Stable Lines: None Urinary Catheter: No Medications and DC Order Prescriptions: New tamsulosin 0.4 mg Capsule 0.4 mg PO QAM 30 Days RF: 0 Xarelto 20 mg Tablet 20 mg PO DAILY@1800 30 Days RF: 0 atorvastatin 40 mg Tablet 40 mg PO QAM 30 Days Qty: 30 RF: 0 metoprolol succinate 50 mg Tablet Extended Release 24 Hr 100 mg PO QAM 30 Days Qty: 60 RF: 0 docusate sodium 100 mg Capsule 100 mg PO BID 7 Days Qty: 14 RF: 0 sennosides [Senokot] 8.6 mg Tablet 17.2 mg PO HS 7 Days Qty: 14 RF: 0 insulin aspart U-100 [Novolog Flexpen U-100 Insulin] 100 unit/mL (3 mL) Insulin Pen 20 unit SC ACHS 30 Days Qty: 6 RF: 0 Lantus Solostar U-100 Insulin 100 unit/mL (3 mL) Insulin Pen 28 unit SC BID 30 Days Qty: 16.8 RF: 0 oxycodone 5 mg capsule 5 mg PO TID PRN (Reason: pain) Qty: 10 RF: 0 Continued aspirin 81 mg tablet,delayed release (DR/EC) 81 mg PO DAILY Qty: 30 RF: 2 levothyroxine 125 mcg tablet 125 mcg PO DAILY Qty: 30 RF: 5 metformin 500 mg tablet extended release 24hr 500 mg PO BID Qty: 60 RF: 5 trazodone 50 mg tablet 50 mg PO HS PRN (Reason: Sleep) RF: 0 Discontinued (DME) blood sugar diagnostic [Blood Glucose Test] Strip See Rx Instructions .ROUTE .MEDSUPPLY Qty: 10 RF: 0 Novolin R Regular U-100 Insuln 100 unit/mL solution 30 unit subcut BID Qty: 20 RF: 5 Novolin N NPH U-100 Insulin 100 unit/mL suspension See Rx Instructions subcut QAM Qty: 20 RF: 5 metoprolol succinate 50 mg capsule,sprinkle,ER 24hr 50 mg PO DAILY Qty: 30 RF: 5 Discharge Orders: Discharge Order (Routine); Ordered 07/21/20 Ordered By: Rebecca Hobbs Admission Data Admit Date/Time: 07/16/20 20:32 Attending Provider: Kita Recio Admit Provider: Benny Sanderson Primary Care Provider: Jg Valdez Other Providers: William Britton ; Stevo Ordaz ; Luke Ballesteros ; Marcelo Dunham ; [facility] ; Benjie Quach Other Interventions: Discharge Summary Assessment (RN) Last Done: 07/21/20 12:21 Supervising Physician Co-Signing Physician Notes Resident Physician Supervision Note: I independently interviewed and examined the patient and verified the sanders history and physical, reviewed labs and image studies, discussed the case with the resident Dr. Hobbs and agree with the findings and care plan. Resident Activity Tracking Resident Involvement: Resident Care Provided Care Provided: Adult [facility] Medicine
[2020-07-21] MEDS: oxyCODONE HCL IR 5 MG TAB (IMMEDIATE RELEASE) PO PRN (12:43)
== END 2020-07-21 13:34 | DRG 501 ==
LOC: ED 13:51 → SUATTDRO 20:32 → 2N 20:32 → 3W 07-19 23:27
DX: F10.21 Alcohol dependence, in remission; Z79.899 Other long term (current) drug therapy; G47.33 Obstructive sleep apnea (adult) (pediatric); I10 Essential (primary) hypertension; L03.115 Cellulitis of right lower limb; I48.91 Unspecified atrial fibrillation; I42.8 Other cardiomyopathies; I45.10 Unspecified right bundle-branch block; Z51.81 Encounter for therapeutic drug level monitoring; E11.65 Type 2 diabetes mellitus with hyperglycemia; E87.1 Hypo-osmolality and hyponatremia; Z79.4 Long term (current) use of insulin; E87.6 Hypokalemia; F17.220 Nicotine dependence, chewing tobacco, uncomplicated; B95.61 Methicillin susceptible Staphylococcus aureus infection as the cause of diseases classified elsewhere; I49.3 Ventricular premature depolarization; E03.9 Hypothyroidism, unspecified; K59.00 Constipation, unspecified; Z79.82 Long term (current) use of aspirin; Z79.890 Hormone replacement therapy; M71.161 Other infective bursitis, right knee

== ENCOUNTER 2020-09-28 16:30 | Inpatient (IN) ==
[~2020-09-28 16:30] MED LIST changes: -ASPI81TA28 PO; +ETOMIDATE 2 MG/ML 20 ML VIAL IV ONE; -LISI-725 PO; -LVMI SC; -METF1000 PO; -MULT-506 PO; -NVLG SC; +ROCURONIUM BROMIDE 10 MG/ML 5 ML VIAL IV ONE; -SIMV20TA5 PO; -TRAZ50TA35 PO; -TRIA37.5 PO
[2020-09-28] MEDS ORDERED: DEXTROSE 50% 50 ML SYRINGE IV ONE ×2 (16:33→16:51)
[2020-09-28] MEDS ORDERED: RAPID SEQUENCE INDUCTION BAG ONE (16:33)
[2020-09-28] MEDS ORDERED: PROPOFOL IV EMULSION 10 MG/ML 100 ML VIAL IV ONE (16:46)
[2020-09-28] MEDS ORDERED: SODIUM CHLORIDE 0.9% 1000ML 500 ML IV ONE (16:51)
[2020-09-28] MEDS ORDERED: LEVETIRACETAM IV STA (16:52)
[2020-09-28] MEDS ORDERED: SODIUM CHLORIDE 0.9% IV STA (16:52)
[2020-09-28] MEDS ORDERED: CEFEPIME 2,000 MG/20 ML VIAL IV STA (16:53)
[2020-09-28] MEDS ORDERED: SODIUM CHLORIDE 0.9% 1000ML 1,000 ML IV ONE (16:56)
[2020-09-28] MEDS ORDERED: LABETALOL HCL IV 5 MG/ML 20ML IV STA ×3 (17:05→18:08)
[2020-09-28] MEDS ORDERED: LABETALOL HCL IV 5 MG/ML 20ML IV ONE (17:05)
[2020-09-28] MEDS: propofoL 1,000 MG/100 ML VIAL IV SCH ×2 (17:08→23:47)
--- NOTE | 2020-09-28 17:08 | Emergency Department Note ---
Impression & Plan Unresponsive episode, Hypertension, Hypoglycemia, Collapse ED Provider Note NAME: HEBER ADAIR AGE: 65 SEX: M : 1955 ARRIVES VIA: Ambulance INFORMANT: [ems] ED PROVIDER(S): [Brenton Hamilton MD] CHIEF COMPLAINT: Unresponsive HISTORY OF PRESENT ILLNESS: The patient is a 65-year-old male who presents by EMS. He did not show up for work and his work called and had some neighbors check the house. The patient was unresponsive on the floor. EMS arrived and the patient was unresponsive with a blood sugar around 20. They did give 25 g of dextrose IV and a repeat sugar was over 100. The patient though did not become mentally alert. He remained unresponsive and seemed to have some reported decorticate posturing. He was maintaining his airway though. He was maintaining an adequate O2 saturation. No further history is obtainable. The patient can give no history. Apparently he lives alone. The medics did mention that his house was a mess. There was g arbage everywhere, he was found laying in a pile of garbage. REVIEW OF SYSTEMS: Unobtainable given his mentation and unresponsive state. PMHx/PSHx: See Below SOCIAL HISTORY: See Below. PHYSICAL EXAM: GENERAL: Patient is in moderate distress. HEENT: No acute trauma, normocephalic atraumatic, mucous membranes dry. His gaze seems deviated to the right. Pupils are equal and reactive to light. There is chewing tobacco around his lips and in his mouth. NECK: No stridor, no adenopathy, no cervical spine step-off, trachea is midline. LUNGS: Clear to auscultation bilaterally, no wheeze, no rhonchi, breath sounds equal. Increased respiratory rate. HEART: Tachycardic and irregular, no obvious murmur. ABDOMEN: Soft, no significant distention, no contusions. EXTREMITIES: No cyanosis or edema. No obvious gross deformities that would indicate traumatic injury. NEUROLOGIC: Unresponsive, no real gag reflex. Seems to show some decorticate posturing. Eyes deviated to the right. Does grimace and moan with a sternal rub but does not reach for my hand. SKIN: No rash, no jaundice, no diaphoresis. Warm to the touch. Back: No extensive skin breakdown noted. DIFFERENTIAL DIAGNOSIS: Infection, dehydration, metabolic abnormality, hypo/hyperglycemia, seizure, alcohol withdrawal, electrolyte disturbance, anemia, hypoxia, cardiac sources, intracerebral event, toxicologic issues, stroke, TIA, as well as other pathologies. EMERGENCY DEPARTMENT COURSE/PROCEDURES: ECG: Indication was tachycardia. The ECG shows a rapid A. fib with a rate of 105. There is a right bundle branch block. There is significant baseline artif act. The QTc is 523. There is no ST elevation. Compared to an ECG from 16 July 2020, the rate has decreased. Continuous Cardiac Monitoring: An order was placed for continuous cardiac monitoring. The monitor shows a rate of 121 with rapid A. fib Critical Care Note: I have personally spent 66 minutes of critical care time in the direct management of this patient. This includes bedside care, interpretation of diagnostic studies, and testing, discussion with consultants, patient, and family members, and other required patient management activities. This 66 minutes is in excess of all separately billable procedures.. Intubation: This procedure was performed by me. Patient received 30 mg of etomidate IV, 100 mg of rocuronium IV. The patient was hyper oxygenated. Using rapid technique, the patient was intubated with a Moya two blade. Some suction was required. No complication. The endotracheal tube was placed at 23 centimeters at the the lips. Good O2 saturation noted afterwards. Good CO2 color change. Breath sounds equal bilaterally. Post intubation chest x-ray demonstrated the tube to be in good position. A Cook catheter was placed and over 1000 cc of urine drained. MEDICAL DECISION MAKING: There is a mild leukocytosis which could be consistent with infection or with the stress of his situation. There is no anemia. There is a normal platelet count. No coagulopathy. ABG showed a very mild acidosis with a pH of 7.3. The CO2 was slightly elevated at 55. The O2 was more than adequate. Basically, he appeared to have a respiratory acidosis. There was no kidney failure or significant electrolyte abnormality. Lactic acid level was elevated at over 3, consistent with dehydration and/or infection. Magnesium slightly low at 1.7. No worrisome liver enzyme elevation. Total CK was elevated some at 615, consistent with him being on the floor for a while. There was no worrisome liver enzyme elevation. The patient appeared to be in a euthyroid state. Urinalysis did not show any evidence for infection. Urine tox was negative. Alcohol level was undetectable. Covid test was negative. Brain CT showed no acute bleed or mass-effect. C-spine CT showed no acute fracture. Chest film showed some congestion to the left lung, no obvious focal pneumonia. No pneumothorax. The endotracheal tube was above the josh. The patient presents unresponsive. Despite receiving IV glucose and now having an adequate blood sugar, his mental state has not significantly improved. Patient was intubated for airway protection. This procedure was noted as above, no complications. I did suction some secretions from around his vocal cords during intubation. The patient had an NG tube and Cook catheter placed. The Cook placement caused 1000 cc of urine drainage. The patient received 1.5 L of IV saline. He received IV cefepime as empiric antibiotic coverage. He was placed on a propofol drip. He did receive some IV Ativan for additional sedation. He was given IV labetalol a few times to help control the blood pressure. He received IV Keppra as seizure prevention. He received a dose of IV fentanyl to help with sedation and potential pain. He was placed on a D5 half-normal saline drip to hopefully control his hypoglycemia. The patient is improved compared to when he arrived. His blood pressure is improved, his heart rate is improved. His airway has been secured. The cause of his entire presentation is unclear, however, I am concerned about prolonged hypoglycemia. I did speak with the baker head, I spoke with the on-call hospitalist as well as case management. Hospitalization, further work-up and care is required. Past Med/Surg History Medical History Cough Diabetes History of alcoholism History of prostate cancer HTN (hypertension) Hyperlipidemia Hypothyroidism Insomnia Nausea Seborrheic dermatitis of scalp Sore throat Tobacco abuse Vitamin D deficiency Surgical History History of left knee surgery History of shoulder surgery Family History Mother Cancer Grandmother (Paternal) Stroke Grandfather (Paternal) Stroke Other Myocardial infarction Denies family history of Ovarian cancer Prostate cancer Breast cancer Colorectal cancer Social History Smoking Status: Unknown if ever smoked Second Hand Exposure: No; Hx Alcohol Use: Yes Hx Substance Use: No Preferred Language: Latvian Communication Ability: Effective Public Transit Specialist Required: No Beliefs That Will Affect Care: None marital status: Current Living Situation: Alone current occupational status: employed 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 Feels Safe at Home: Yes Childhood Exposure to Second-Hand Smoke: Yes caffeine: Yes (iced tea ) Dental Care, Regularly: No Physical Activity Frequency: 3-4 Times per Week Seatbelt Use: always Sunscreen Use: No Assistive Devices: Glasses and Walker Allergies Allergies Allergy/AdvReac Type Severity Reaction Status Date / Time No Known Allergies Allergy Verified 09/28/20 17:01 Home Meds Home Medications Medication Instructions Recorded Confirmed trazodone 50 mg PO HS PRN 07/16/20 09/28/20 atorvastatin 40 mg PO QPM 09/28/20 09/28/20 metoprolol succinate 50 mg PO DAILY 09/28/20 09/28/20 Previous Rx's Medication Instructions Recorded metformin 500 mg tablet,extended 500 mg PO BID #60 tab 10/20/19 release 24hr atorvastatin 40 mg tablet 40 mg PO QPM #30 tab 07/30/20 insulin human U-100 NPH-regulr 20 unit SUBCUT BID #20 ml 07/30/20 70-30 mix 100 unit/mL subcutaneous susp lisinopril 40 mg tablet 40 mg PO DAILY #30 tab 08/10/20 levothyroxine 125 mcg tablet 125 mcg PO DAILY #30 tab 08/31/20 rivaroxaban 20 mg tablet 20 mg PO DAILY@1800 30 Days #30 tab 09/01/20 Results & Data (ED) Vital Signs Vital Signs - 24 hr 09/28/20 16:36 09/28/20 16:48 09/28/20 16:51 Temperature Temperature Source Pulse Rate 102 H 116 H 113 H Pulse Rate from SpO2 Sensor 101 H 147 H Respiratory Rate 29 H 25 H 16 Blood Pressure 176/117 H 202/168 H Blood Pressure Mean 136 179 Blood Pressure Position Lying Pulse Oximetry 96 88 L 98 Oxygen Delivery Method Fraction of Inspired Oxygen 50 SaO2/FiO2 Ratio Sepsis Recent Fever Within 48 Hours No Sepsis New/Unexplained Change in Mental Status Yes Sepsis Action Taken by Nursing Physician Notified End-Tidal CO2 39 09/28/20 17:01 09/28/20 17:02 09/28/20 17:06 Temperature Temperature Source Pulse Rate 120 H 104 H Pulse Rate from SpO2 Sensor 111 H Respiratory Rate 18 Blood Pressure 199/157 H Blood Pressure Mean 171 Blood Pressure Position Pulse Oximetry 99 98 Oxygen Delivery Method Mechanical Vent Fraction of Inspired Oxygen 50 SaO2/FiO2 Ratio 196 Sepsis Recent Fever Within 48 Hours Sepsis New/Unexplained Change in Mental Status Sepsis Action Taken by Nursing End-Tidal CO2 50 09/28/20 17:10 09/28/20 17:21 09/28/20 17:30 Temperature Temperature Source Pulse Rate 96 H 101 H 105 H Pulse Rate from SpO2 Sensor 93 H 100 H Respiratory Rate Blood Pressure 188/140 H 185/127 H 162/118 H Blood Pressure Mean 156 146 132 Blood Pressure Position Pulse Oximetry 96 96 97 Oxygen Delivery Method Mechanical Vent Mechanical Vent Mechanical Vent Fraction of Inspired Oxygen 50 SaO2/FiO2 Ratio Sepsis Recent Fever Within 48 Hours Sepsis New/Unexplained Change in Mental Status Sepsis Action Taken by Nursing End-Tidal CO2 47 48 43 09/28/20 17:36 09/28/20 18:10 09/28/20 18:21 Temperature 36.4 C L Temperature Source Rectal Pulse Rate 104 H 82 Pulse Rate from SpO2 Sensor 100 H 87 Respiratory Rate Blood Pressure 174/142 H 164/141 H Blood Pressure Mean 152 148 Blood Pressure Position Pulse Oximetry 91 97 Oxygen Delivery Method Mechanical Vent Mechanical Vent Fraction of Inspired Oxygen SaO2/FiO2 Ratio Sepsis Recent Fever Within 48 Hours Sepsis New/Unexplained Change in Mental Status Sepsis Action Taken by Nursing End-Tidal CO2 53 46 09/28/20 18:25 09/28/20 18:31 09/28/20 18:41 Temperature Temperature Source Pulse Rate 84 90 77 Pulse Rate from SpO2 Sensor 89 87 81 Respiratory Rate Blood Pressure 178/108 H 164/120 H 159/122 H Blood Pressure Mean 131 134 134 Blood Pressure Position Pulse Oximetry 97 100 100 Oxygen Delivery Method Mechanical Vent Mechanical Vent Fraction of Inspired Oxygen 50 50 SaO2/FiO2 Ratio Sepsis Recent Fever Within 48 Hours Sepsis New/Unexplained Change in Mental Status Sepsis Action Taken by Nursing End-Tidal CO2 46 46 38 Home Medications Current Medication List: was personally reviewed by me Laboratory Data Attestation: I reviewed the patient's lab results. Result diagrams: 09/28/20 16:59 09/28/20 16:59 Lab Results 09/28/20 09/28/20 09/28/20 Range/Units 16:36 16:43 16:58 WBC (4.8-10.8) K/uL RBC (4.7-6.1) M/uL Hgb (14.0-18.0) g/dL POC Hgb (14.0-18.0) g/dl Hct (42-52) % POC Hct (42-52) % MCV (80-100) fL MCH (25-34) pg MCHC (32-36) g/dL RDW Std Deviation (36.4-46.3) fL RDW Coeff of Robyn (11.5-14.5) % Plt Count (130-400) K/uL MPV (7.4-10.4) fL Immature Gran % (Auto) % Neut % (Auto) % Lymph % (Auto) % [place] % (Auto) % Eos % (Auto) % Baso % (Auto) % Neut # (Auto) (1.4-6.5) K/uL Lymph # (Auto) (1.2-3.4) K/uL [place] # (Auto) (0.11-0.59) K/uL Eos # (Auto) (0-0.5) K/uL Baso # (Auto) (0-0.2) K/uL Immature Gran # (Auto) (0.00-0.02) K/uL PT (9.0-12.0) Seconds INR (0.9-1.1) APTT (21.0-31.0) Seconds PTT Ratio POC pH (7.35-7.45) POC pCO2 (35-46) mmHg POC pO2 (80-95) mmHg POC HCO3 (19-24) soheila/L POC Total CO2 (24-31) mmol/L POC Base Excess (-9-1.8) soheila/L POC ABG O2 Sat (90-95) % POC Sodium (135-144) mmol/L Sodium (136-145) mmol/L POC Potassium (3.3-5.0) mmol/L Potassium (3.5-5.1) mmol/L POC Chloride (101-112) mmol/L Chloride (98-107) mmol/L Carbon Dioxide (21-32) mmol/L Anion Gap (3-11) POC Anion Gap (16-25) mmol/L POC BUN (7-18) mg/dl BUN (7-18) mg/dl Creatinine (0.6-1.4) mg/dl POC Creatinine (0.6-1.3) mg/dl Est Cr Clr Drug Dosing Est GFR ( Amer) ml/min Est GFR (Non-Af Amer) ml/min BUN/Creatinine Ratio (10-20) Glucose (70-99) mg/dl POC Glucose 61 L* 113 H 126 H (70-99) mg/dl POC Glucose (other) (70-99) mg/dl Osmolality (280-300) mOsm/kg Lactate (0.4-2.0) mmol/L Calcium (8.5-10.1) mg/dl POC Ioniz Calcium Ruperto (1.12-1.32) mmol/l Phosphorus (2.5-4.9) mg/dl Magnesium (1.8-2.4) mg/dl Total Bilirubin (0.2-1) mg/dl AST (15-37) U/L ALT (12-78) U/L Alkaline Phosphatase (45-117) U/L Total Creatine Kinase (39-308) U/L Troponin I (0-0.045) ng/ml Total Protein (6.4-8.2) gm/dl Albumin (3.4-5.0) gm/dl Globulin (2.5-4.0) gm/dl Albumin/Globulin Ratio (0.9-2) Procalcitonin (0-0.5) ng/ml TSH (0.300-4.500) uIu/ml Urine Color Urine Appearance (Clear) Urine pH (4.5-7.5) Ur Specific [place] (1.000-1.030) Urine Protein (Negative) Urine Glucose (UA) (Negative) Urine Ketones (Negative) Urine Blood (Negative) Urine Nitrite (Negative) Urine Bilirubin (Negative) Urine Urobilinogen (Negative) Ur Leukocyte Esterase (Negative) Urine WBC (Auto) (0-5) /hpf Urine RBC (Auto) (0-4) /hpf U Hyaline Cast (Auto) (0-5) /lpf U Epithel Cells (Auto) (0-5) /lpf Urine Bacteria (Auto) (Negative) Urine Opiates Screen (Neg) Ur Methadone, Qual (Neg) Urine Barbiturates (Neg) Ur Phencyclidine (PCP) (Neg) U Amphetamin/Meth Scrn (Neg) MDMA (Ecstasy) Screen (Neg) U Benzodiazepines Scrn (Neg) Ur Cocaine Metabolite (Neg) U Marijuana (THC) Screen (Neg) Ethyl Alcohol mg/dL (0-3) mg/dl COVID-19 Eval Order SARS-CoV-2 (PCR) (Negative) 09/28/20 09/28/20 09/28/20 Range/Units 16:58 16:59 16:59 WBC (4.8-10.8) K/uL RBC (4.7-6.1) M/uL Hgb (14.0-18.0) g/dL POC Hgb 14.6 (14.0-18.0) g/dl Hct (42-52) % POC Hct 43 (42-52) % MCV (80-100) fL MCH (25-34) pg MCHC (32-36) g/dL RDW Std Deviation (36.4-46.3) fL RDW Coeff of Robyn (11.5-14.5) % Plt Count (130-400) K/uL MPV (7.4-10.4) fL Immature Gran % (Auto) % Neut % (Auto) % Lymph % (Auto) % [place] % (Auto) % Eos % (Auto) % Baso % (Auto) % Neut # (Auto) (1.4-6.5) K/uL Lymph # (Auto) (1.2-3.4) K/uL [place] # (Auto) (0.11-0.59) K/uL Eos # (Auto) (0-0.5) K/uL Baso # (Auto) (0-0.2) K/uL Immature Gran # (Auto) (0.00-0.02) K/uL PT 11.0 (9.0-12.0) Seconds INR 1.1 (0.9-1.1) APTT 26.6 (21.0-31.0) Seconds PTT Ratio 1.0 POC pH 7.33 L (7.35-7.45) POC pCO2 55 H (35-46) mmHg POC pO2 126 H (80-95) mmHg POC HCO3 29 H (19-24) soheila/L POC Total CO2 31 (24-31) mmol/L POC Base Excess 3.0 H (-9-1.8) soheila/L POC ABG O2 Sat 99.0 H (90-95) % POC Sodium 140 (135-144) mmol/L Sodium (136-145) mmol/L POC Potassium 3.2 L (3.3-5.0) mmol/L Potassium (3.5-5.1) mmol/L POC Chloride (101-112) mmol/L Chloride (98-107) mmol/L Carbon Dioxide (21-32) mmol/L Anion Gap (3-11) POC Anion Gap (16-25) mmol/L POC BUN (7-18) mg/dl BUN (7-18) mg/dl Creatinine (0.6-1.4) mg/dl POC Creatinine (0.6-1.3) mg/dl Est Cr Clr Drug Dosing Est GFR ( Amer) ml/min Est GFR (Non-Af Amer) ml/min BUN/Creatinine Ratio (10-20) Glucose (70-99) mg/dl POC Glucose (70-99) mg/dl POC Glucose (other) (70-99) mg/dl Osmolality (280-300) mOsm/kg Lactate (0.4-2.0) mmol/L Calcium (8.5-10.1) mg/dl POC Ioniz Calcium Ruperto (1.12-1.32) mmol/l Phosphorus (2.5-4.9) mg/dl Magnesium (1.8-2.4) mg/dl Total Bilirubin (0.2-1) mg/dl AST (15-37) U/L ALT (12-78) U/L Alkaline Phosphatase (45-117) U/L Total Creatine Kinase (39-308) U/L Troponin I (0-0.045) ng/ml Total Protein (6.4-8.2) gm/dl Albumin (3.4-5.0) gm/dl Globulin (2.5-4.0) gm/dl Albumin/Globulin Ratio (0.9-2) Procalcitonin (0-0.5) ng/ml TSH (0.300-4.500) uIu/ml Urine Color Urine Appearance (Clear) Urine pH (4.5-7.5) Ur Specific [place] (1.000-1.030) Urine Protein (Negative) Urine Glucose (UA) (Negative) Urine Ketones (Negative) Urine Blood (Negative) Urine Nitrite (Negative) Urine Bilirubin (Negative) Urine Urobilinogen (Negative) Ur Leukocyte Esterase (Negative) Urine WBC (Auto) (0-5) /hpf Urine RBC (Auto) (0-4) /hpf U Hyaline Cast (Auto) (0-5) /lpf U Epithel Cells (Auto) (0-5) /lpf Urine Bacteria (Auto) (Negative) Urine Opiates Screen (Neg) Ur Methadone, Qual (Neg) Urine Barbiturates (Neg) Ur Phencyclidine (PCP) (Neg) U Amphetamin/Meth Scrn (Neg) MDMA (Ecstasy) Screen (Neg) U Benzodiazepines Scrn (Neg) Ur Cocaine Metabolite (Neg) U Marijuana (THC) Screen (Neg) Ethyl Alcohol mg/dL < 3.0 (0-3) mg/dl COVID-19 Eval Order SARS-CoV-2 (PCR) (Negative) 09/28/20 09/28/20 09/28/20 Range/Units 16:59 16:59 16:59 WBC 11.16 H (4.8-10.8) K/uL RBC 5.14 (4.7-6.1) M/uL Hgb 15.9 (14.0-18.0) g/dL POC Hgb (14.0-18.0) g/dl Hct 44.1 (42-52) % POC Hct (42-52) % MCV 85.8 (80-100) fL MCH 30.9 (25-34) pg MCHC 36.1 H (32-36) g/dL RDW Std Deviation 41.1 (36.4-46.3) fL RDW Coeff of Robyn 13.0 (11.5-14.5) % Plt Count 190 (130-400) K/uL MPV 8.8 (7.4-10.4) fL Immature Gran % (Auto) 0.2 % Neut % (Auto) 91.0 % Lymph % (Auto) 4.2 % [place] % (Auto) 4.6 % Eos % (Auto) 0.0 % Baso % (Auto) 0.0 % Neut # (Auto) 10.16 H (1.4-6.5) K/uL Lymph # (Auto) 0.47 L (1.2-3.4) K/uL [place] # (Auto) 0.51 (0.11-0.59) K/uL Eos # (Auto) 0.00 (0-0.5) K/uL Baso # (Auto) 0.00 (0-0.2) K/uL Immature Gran # (Auto) 0.02 (0.00-0.02) K/uL PT (9.0-12.0) Seconds INR (0.9-1.1) APTT (21.0-31.0) Seconds PTT Ratio POC pH (7.35-7.45) POC pCO2 (35-46) mmHg POC pO2 (80-95) mmHg POC HCO3 (19-24) soheila/L POC Total CO2 (24-31) mmol/L POC Base Excess (-9-1.8) soheila/L POC ABG O2 Sat (90-95) % POC Sodium (135-144) mmol/L Sodium 138 (136-145) mmol/L POC Potassium (3.3-5.0) mmol/L Potassium 3.4 L (3.5-5.1) mmol/L POC Chloride (101-112) mmol/L Chloride 102 (98-107) mmol/L Carbon Dioxide 28 (21-32) mmol/L Anion Gap 7.0 (3-11) POC Anion Gap (16-25) mmol/L POC BUN (7-18) mg/dl BUN 12 (7-18) mg/dl Creatinine 0.92 (0.6-1.4) mg/dl POC Creatinine (0.6-1.3) mg/dl Est Cr Clr Drug Dosing Not Reportable Est GFR ( Amer) 100.8 ml/min Est GFR (Non-Af Amer) 87.0 ml/min BUN/Creatinine Ratio 13.3 (10-20) Glucose 133 H (70-99) mg/dl POC Glucose (70-99) mg/dl POC Glucose (other) (70-99) mg/dl Osmolality (280-300) mOsm/kg Lactate 3.4 H* (0.4-2.0) mmol/L Calcium 8.5 (8.5-10.1) mg/dl POC Ioniz Calcium Ruperto (1.12-1.32) mmol/l Phosphorus 2.8 (2.5-4.9) mg/dl Magnesium 1.7 L (1.8-2.4) mg/dl Total Bilirubin 0.8 (0.2-1) mg/dl AST 25 (15-37) U/L ALT 28 (12-78) U/L Alkaline Phosphatase 109 (45-117) U/L Total Creatine Kinase 615 H (39-308) U/L Troponin I < 0.015 (0-0.045) ng/ml Total Protein 8.1 (6.4-8.2) gm/dl Albumin 3.5 (3.4-5.0) gm/dl Globulin 4.6 H (2.5-4.0) gm/dl Albumin/Globulin Ratio 0.8 L (0.9-2) Procalcitonin (0-0.5) ng/ml TSH 2.320 (0.300-4.500) uIu/ml Urine Color Urine Appearance (Clear) Urine pH (4.5-7.5) Ur Specific [place] (1.000-1.030) Urine Protein (Negative) Urine Glucose (UA) (Negative) Urine Ketones (Negative) Urine Blood (Negative) Urine Nitrite (Negative) Urine Bilirubin (Negative) Urine Urobilinogen (Negative) Ur Leukocyte Esterase (Negative) Urine WBC (Auto) (0-5) /hpf Urine RBC (Auto) (0-4) /hpf U Hyaline Cast (Auto) (0-5) /lpf U Epithel Cells (Auto) (0-5) /lpf Urine Bacteria (Auto) (Negative) Urine Opiates Screen (Neg) Ur Methadone, Qual (Neg) Urine Barbiturates (Neg) Ur Phencyclidine (PCP) (Neg) U Amphetamin/Meth Scrn (Neg) MDMA (Ecstasy) Screen (Neg) U Benzodiazepines Scrn (Neg) Ur Cocaine Metabolite (Neg) U Marijuana (THC) Screen (Neg) Ethyl Alcohol mg/dL (0-3) mg/dl COVID-19 Eval Order SARS-CoV-2 (PCR) (Negative) 09/28/20 09/28/20 09/28/20 Range/Units 17:00 17:00 17:01 WBC (4.8-10.8) K/uL RBC (4.7-6.1) M/uL Hgb (14.0-18.0) g/dL POC Hgb (14.0-18.0) g/dl Hct (42-52) % POC Hct (42-52) % MCV (80-100) fL MCH (25-34) pg MCHC (32-36) g/dL RDW Std Deviation (36.4-46.3) fL RDW Coeff of Robyn (11.5-14.5) % Plt Count (130-400) K/uL MPV (7.4-10.4) fL Immature Gran % (Auto) % Neut % (Auto) % Lymph % (Auto) % [place] % (Auto) % Eos % (Auto) % Baso % (Auto) % Neut # (Auto) (1.4-6.5) K/uL Lymph # (Auto) (1.2-3.4) K/uL [place] # (Auto) (0.11-0.59) K/uL Eos # (Auto) (0-0.5) K/uL Baso # (Auto) (0-0.2) K/uL Immature Gran # (Auto) (0.00-0.02) K/uL PT (9.0-12.0) Seconds INR (0.9-1.1) APTT (21.0-31.0) Seconds PTT Ratio POC pH (7.35-7.45) POC pCO2 (35-46) mmHg POC pO2 (80-95) mmHg POC HCO3 (19-24) soheila/L POC Total CO2 (24-31) mmol/L POC Base Excess (-9-1.8) soheila/L POC ABG O2 Sat (90-95) % POC Sodium (135-144) mmol/L Sodium (136-145) mmol/L POC Potassium (3.3-5.0) mmol/L Potassium (3.5-5.1) mmol/L POC Chloride (101-112) mmol/L Chloride (98-107) mmol/L Carbon Dioxide (21-32) mmol/L Anion Gap (3-11) POC Anion Gap (16-25) mmol/L POC BUN (7-18) mg/dl BUN (7-18) mg/dl Creatinine (0.6-1.4) mg/dl POC Creatinine (0.6-1.3) mg/dl Est Cr Clr Drug Dosing Est GFR ( Amer) ml/min Est GFR (Non-Af Amer) ml/min BUN/Creatinine Ratio (10-20) Glucose (70-99) mg/dl POC Glucose (70-99) mg/dl POC Glucose (other) (70-99) mg/dl Osmolality 295 (280-300) mOsm/kg Lactate (0.4-2.0) mmol/L Calcium (8.5-10.1) mg/dl POC Ioniz Calcium Ruperto (1.12-1.32) mmol/l Phosphorus (2.5-4.9) mg/dl Magnesium (1.8-2.4) mg/dl Total Bilirubin (0.2-1) mg/dl AST (15-37) U/L ALT (12-78) U/L Alkaline Phosphatase (45-117) U/L Total Creatine Kinase (39-308) U/L Troponin I (0-0.045) ng/ml Total Protein (6.4-8.2) gm/dl Albumin (3.4-5.0) gm/dl Globulin (2.5-4.0) gm/dl Albumin/Globulin Ratio (0.9-2) Procalcitonin (0-0.5) ng/ml TSH (0.300-4.500) uIu/ml Urine Color Yellow Urine Appearance Clear (Clear) Urine pH 7.5 (4.5-7.5) Ur Specific [place] 1.017 (1.000-1.030) Urine Protein 2+ H (Negative) Urine Glucose (UA) Trace H (Negative) Urine Ketones Negative (Negative) Urine Blood 1+ H (Negative) Urine Nitrite Negative (Negative) Urine Bilirubin Negative (Negative) Urine Urobilinogen Negative (Negative) Ur Leukocyte Esterase Negative (Negative) Urine WBC (Auto) 0 (0-5) /hpf Urine RBC (Auto) 0-4 (0-4) /hpf U Hyaline Cast (Auto) 1-5 (0-5) /lpf U Epithel Cells (Auto) 5-10 H (0-5) /lpf Urine Bacteria (Auto) Negative (Negative) Urine Opiates Screen Neg (Neg) Ur Methadone, Qual Neg (Neg) Urine Barbiturates Neg (Neg) Ur Phencyclidine (PCP) Neg (Neg) U Amphetamin/Meth Scrn Neg (Neg) MDMA (Ecstasy) Screen Neg (Neg) U Benzodiazepines Scrn Neg (Neg) Ur Cocaine Metabolite Neg (Neg) U Marijuana (THC) Screen Neg (Neg) Ethyl Alcohol mg/dL (0-3) mg/dl COVID-19 Eval Order SARS-CoV-2 (PCR) (Negative) 09/28/20 09/28/20 09/28/20 Range/Units 17:01 17:05 17:34 WBC (4.8-10.8) K/uL RBC (4.7-6.1) M/uL Hgb (14.0-18.0) g/dL POC Hgb 16.0 (14.0-18.0) g/dl Hct (42-52) % POC Hct 47 (42-52) % MCV (80-100) fL MCH (25-34) pg MCHC (32-36) g/dL RDW Std Deviation (36.4-46.3) fL RDW Coeff of Robyn (11.5-14.5) % Plt Count (130-400) K/uL MPV (7.4-10.4) fL Immature Gran % (Auto) % Neut % (Auto) % Lymph % (Auto) % [place] % (Auto) % Eos % (Auto) % Baso % (Auto) % Neut # (Auto) (1.4-6.5) K/uL Lymph # (Auto) (1.2-3.4) K/uL [place] # (Auto) (0.11-0.59) K/uL Eos # (Auto) (0-0.5) K/uL Baso # (Auto) (0-0.2) K/uL Immature Gran # (Auto) (0.00-0.02) K/uL PT (9.0-12.0) Seconds INR (0.9-1.1) APTT (21.0-31.0) Seconds PTT Ratio POC pH (7.35-7.45) POC pCO2 (35-46) mmHg POC pO2 (80-95) mmHg POC HCO3 (19-24) soheila/L POC Total CO2 29 (24-31) mmol/L POC Base Excess (-9-1.8) soheila/L POC ABG O2 Sat (90-95) % POC Sodium 140 (135-144) mmol/L Sodium (136-145) mmol/L POC Potassium 3.4 (3.3-5.0) mmol/L Potassium (3.5-5.1) mmol/L POC Chloride 97 L (101-112) mmol/L Chloride (98-107) mmol/L Carbon Dioxide (21-32) mmol/L Anion Gap (3-11) POC Anion Gap 20.0 (16-25) mmol/L POC BUN 12 (7-18) mg/dl BUN (7-18) mg/dl Creatinine (0.6-1.4) mg/dl POC Creatinine 0.7 (0.6-1.3) mg/dl Est Cr Clr Drug Dosing Est GFR ( Amer) ml/min Est GFR (Non-Af Amer) ml/min BUN/Creatinine Ratio (10-20) Glucose (70-99) mg/dl POC Glucose 96 (70-99) mg/dl POC Glucose (other) 138 H (70-99) mg/dl Osmolality (280-300) mOsm/kg Lactate (0.4-2.0) mmol/L Calcium (8.5-10.1) mg/dl POC Ioniz Calcium Ruperto 1.16 (1.12-1.32) mmol/l Phosphorus (2.5-4.9) mg/dl Magnesium (1.8-2.4) mg/dl Total Bilirubin (0.2-1) mg/dl AST (15-37) U/L ALT (12-78) U/L Alkaline Phosphatase (45-117) U/L Total Creatine Kinase (39-308) U/L Troponin I (0-0.045) ng/ml Total Protein (6.4-8.2) gm/dl Albumin (3.4-5.0) gm/dl Globulin (2.5-4.0) gm/dl Albumin/Globulin Ratio (0.9-2) Procalcitonin < 0.05 (0-0.5) ng/ml TSH (0.300-4.500) uIu/ml Urine Color Urine Appearance (Clear) Urine pH (4.5-7.5) Ur Specific [place] (1.000-1.030) Urine Protein (Negative) Urine Glucose (UA) (Negative) Urine Ketones (Negative) Urine Blood (Negative) Urine Nitrite (Negative) Urine Bilirubin (Negative) Urine Urobilinogen (Negative) Ur Leukocyte Esterase (Negative) Urine WBC (Auto) (0-5) /hpf Urine RBC (Auto) (0-4) /hpf U Hyaline Cast (Auto) (0-5) /lpf U Epithel Cells (Auto) (0-5) /lpf Urine Bacteria (Auto) (Negative) Urine Opiates Screen (Neg) Ur Methadone, Qual (Neg) Urine Barbiturates (Neg) Ur Phencyclidine (PCP) (Neg) U Amphetamin/Meth Scrn (Neg) MDMA (Ecstasy) Screen (Neg) U Benzodiazepines Scrn (Neg) Ur Cocaine Metabolite (Neg) U Marijuana (THC) Screen (Neg) Ethyl Alcohol mg/dL (0-3) mg/dl COVID-19 Eval Order SARS-CoV-2 (PCR) (Negative) 09/28/20 09/28/20 09/28/20 Range/Units 18:21 18:23 18:23 WBC (4.8-10.8) K/uL RBC (4.7-6.1) M/uL Hgb (14.0-18.0) g/dL POC Hgb (14.0-18.0) g/dl Hct (42-52) % POC Hct (42-52) % MCV (80-100) fL MCH (25-34) pg MCHC (32-36) g/dL RDW Std Deviation (36.4-46.3) fL RDW Coeff of Robyn (11.5-14.5) % Plt Count (130-400) K/uL MPV (7.4-10.4) fL Immature Gran % (Auto) % Neut % (Auto) % Lymph % (Auto) % [place] % (Auto) % Eos % (Auto) % Baso % (Auto) % Neut # (Auto) (1.4-6.5) K/uL Lymph # (Auto) (1.2-3.4) K/uL [place] # (Auto) (0.11-0.59) K/uL Eos # (Auto) (0-0.5) K/uL Baso # (Auto) (0-0.2) K/uL Immature Gran # (Auto) (0.00-0.02) K/uL PT (9.0-12.0) Seconds INR (0.9-1.1) APTT (21.0-31.0) Seconds PTT Ratio POC pH (7.35-7.45) POC pCO2 (35-46) mmHg POC pO2 (80-95) mmHg POC HCO3 (19-24) soheila/L POC Total CO2 (24-31) mmol/L POC Base Excess (-9-1.8) soheila/L POC ABG O2 Sat (90-95) % POC Sodium (135-144) mmol/L Sodium (136-145) mmol/L POC Potassium (3.3-5.0) mmol/L Potassium (3.5-5.1) mmol/L POC Chloride (101-112) mmol/L Chloride (98-107) mmol/L Carbon Dioxide (21-32) mmol/L Anion Gap (3-11) POC Anion Gap (16-25) mmol/L POC BUN (7-18) mg/dl BUN (7-18) mg/dl Creatinine (0.6-1.4) mg/dl POC Creatinine (0.6-1.3) mg/dl Est Cr Clr Drug Dosing Est GFR ( Amer) ml/min Est GFR (Non-Af Amer) ml/min BUN/Creatinine Ratio (10-20) Glucose (70-99) mg/dl POC Glucose 77 (70-99) mg/dl POC Glucose (other) (70-99) mg/dl Osmolality (280-300) mOsm/kg Lactate (0.4-2.0) mmol/L Calcium (8.5-10.1) mg/dl POC Ioniz Calcium Ruperto (1.12-1.32) mmol/l Phosphorus (2.5-4.9) mg/dl Magnesium (1.8-2.4) mg/dl Total Bilirubin (0.2-1) mg/dl AST (15-37) U/L ALT (12-78) U/L Alkaline Phosphatase (45-117) U/L Total Creatine Kinase (39-308) U/L Troponin I (0-0.045) ng/ml Total Protein (6.4-8.2) gm/dl Albumin (3.4-5.0) gm/dl Globulin (2.5-4.0) gm/dl Albumin/Globulin Ratio (0.9-2) Procalcitonin (0-0.5) ng/ml TSH (0.300-4.500) uIu/ml Urine Color Urine Appearance (Clear) Urine pH (4.5-7.5) Ur Specific [place] (1.000-1.030) Urine Protein (Negative) Urine Glucose (UA) (Negative) Urine Ketones (Negative) Urine Blood (Negative) Urine Nitrite (Negative) Urine Bilirubin (Negative) Urine Urobilinogen (Negative) Ur Leukocyte Esterase (Negative) Urine WBC (Auto) (0-5) /hpf Urine RBC (Auto) (0-4) /hpf U Hyaline Cast (Auto) (0-5) /lpf U Epithel Cells (Auto) (0-5) /lpf Urine Bacteria (Auto) (Negative) Urine Opiates Screen (Neg) Ur Methadone, Qual (Neg) Urine Barbiturates (Neg) Ur Phencyclidine (PCP) (Neg) U Amphetamin/Meth Scrn (Neg) MDMA (Ecstasy) Screen (Neg) U Benzodiazepines Scrn (Neg) Ur Cocaine Metabolite (Neg) U Marijuana (THC) Screen (Neg) Ethyl Alcohol mg/dL (0-3) mg/dl COVID-19 Eval Order Covid19 at [facility] SARS-CoV-2 (PCR) NEGATIVE (Negative) Administered Medications Propofol (Diprivan) 1,000 mg in 100 mls @ 32.4 mls/hr IV .Q3H6M [facility]; Protocol Stop: 10/01/20 16:59 Last Titration: 09/28/20 19:39 Dose: 50 mcg/kg/min, 32.4 mls/hr Documented by: [id number] Titration: 09/28/20 18:18 Dose: 25 mcg/kg/min, 16.2 mls/hr Documented by: [id number] Titration: 09/28/20 18:11 Dose: 20 mcg/kg/min, 13 mls/hr Documented by: [id number] Admin: 09/28/20 17:08 Dose: 10 mcg/kg/min, 6.5 mls/hr Documented by: [id number] Cosigned by: [id number] Dextrose/Sodium Chloride (D5w And 1/2nss) 1,000 mls @ 150 mls/hr IV .Q6H40M STA Stop: 09/29/20 02:24 Last Admin: 09/28/20 19:49 Dose: Not Given Documented by: [id number] Discontinued Medications Dextrose (Dextrose 50% 50 Ml Syringe) Confirm Administered Dose 50 ml IV .STK- MED ONE Stop: 09/28/20 16:34 Last Admin: 09/28/20 17:16 Dose: Not Given Documented by: [id number] Dextrose (Dextrose 50% 50 Ml Syringe) 25 ml IV NOW ONE Stop: 09/28/20 16:52 Last Admin: 09/28/20 16:36 Dose: 25 ml Documented by: [id number] Fentanyl Citrate (Fentanyl Citrate 100 Mcg/2 Ml Vial) 200 mcg IV NOW STA Stop: 09/28/20 19:47 Last Admin: 09/28/20 19:52 Dose: 200 mcg Documented by: [id number] Levetiracetam 2,100 mg/ Sodium (Chloride) 271 mls @ 956.471 mls/hr IV NOW STA Stop: 09/28/20 17:08 Last Infusion: 09/28/20 17:25 Dose: 0 mls/hr Documented by: [id number] Admin: 09/28/20 17:08 Dose: 956.5 mls/hr Documented by: [id number] Sodium Chloride (Nss 1000ml) 500 mls @ 999 mls/hr IV .Q31M ONE Stop: 09/28/20 17:21 Last Infusion: 09/28/20 18:12 Dose: 0 mls/hr Documented by: [id number] Admin: 09/28/20 17:12 Dose: 999 mls/hr Documented by: [id number] Cefepime HCl (Maxipime) 2,000 mg in 20 mls @ 5 mls/min IV NOW STA; Protocol Stop: 09/28/20 16:56 Last Admin: 09/28/20 17:08 Dose: 5 mls/min Documented by: [id number] Sodium Chloride (Nss 1000ml) 1,000 mls @ 999 mls/hr IV .Q1H1M ONE Stop: 09/28/20 17:56 Last Infusion: 09/28/20 18:12 Dose: 0 mls/hr Documented by: [id number] Admin: 09/28/20 17:12 Dose: 999 mls/hr Documented by: [id number] Dextrose/Sodium Chloride (D5w And 1/2nss) 1,000 mls @ 100 mls/hr IV .Q10H STA Stop: 09/29/20 03:33 Last Infusion: 09/28/20 19:38 Dose: 150 mls/hr Documented by: [id number] Admin: 09/28/20 18:11 Dose: 100 mls/hr Documented by: [id number] Lorazepam (Ativan) 2 mg in 4 mls @ 4 mls/min IV NOW STA Stop: 09/28/20 18:27 Last Admin: 09/28/20 18:31 Dose: 4 mls/min Documented by: [id number] Labetalol HCl (Labetalol Hcl Iv 5 Mg/Ml 20ml) Confirm Administered Dose 10 mg IV .STK-MED ONE Stop: 09/28/20 17:06 Last Admin: 09/28/20 17:13 Dose: Not Given Documented by: [id number] Labetalol HCl (Labetalol Hcl Iv 5 Mg/Ml 20ml) 10 mg IV NOW STA Stop: 09/28/20 17:06 Last Admin: 09/28/20 17:07 Dose: 10 mg Documented by: [id number] Cosigned by: [id number] Labetalol HCl (Labetalol Hcl Iv 5 Mg/Ml 20ml) 10 mg IV NOW STA Stop: 09/28/20 17:24 Last Admin: 09/28/20 17:24 Dose: 10 mg Documented by: [id number] Cosigned by: [id number] Labetalol HCl (Labetalol Hcl Iv 5 Mg/Ml 20ml) 10 mg IV NOW STA Stop: 09/28/20 18:09 Last Admin: 09/28/20 18:11 Dose: 10 mg Documented by: [id number] Cosigned by: [id number] Miscellaneous (Rapid Sequence Induction Bag) Confirm Administered Dose 1 ea .ROUTE .STK-MED ONE Stop: 09/28/20 16:34 Last Admin: 09/28/20 17:13 Dose: Not Given Documented by: [id number] Propofol (Propofol Iv Emulsion 10 Mg/Ml 100 Ml Vial) Confirm Administered Dose 1,000 mg IV .STK-MED ONE Stop: 09/28/20 16:47 Last Admin: 09/28/20 17:13 Dose: Not Given Documented by: [id number] Imaging Data Radiologist's Impression: Chest X-Ray 09/28/20 16:51 XR chest 1V portable CLINICAL HISTORY: Respiratory failure COMPARISON STUDY: Chest x-ray dated 11/03/2009 FINDINGS: r there is an endotracheal tube 23 mm above the josh. The heart is mildly enlarged. There is subtle left lung airspace opacities, asymmetric edema versus an infectious/inflammatory process. Clinical and radiographic follow-up is recommended.[ IMPRESSION: 1. Endotracheal tube 22 mm above the josh 2. Left lung airspace opacities, asymmetric edema versus an infectious /inflammatory process. Clinical and radiographic follow-up are recommended ACT 112: Negative or not required by law. Electronically signed by: Elkin Molina M.D. 09/28/2020 5:[address] 09/28/20 16:52 CT OF THE CERVICAL SPINE CLINICAL HISTORY: Neck pain status post trauma COMPARISON STUDY: X-ray study performed May 2014 CT DOSE: 1596.10 mGy.cm TECHNIQUE: CT scan of the cervical spine was performed from the skull base to the thoracic inlet. Images are reviewed in the axial, sagittal, and coronal plan es. IV contrast was not administered for this examination. A dose lowering technique was utilized adhering to the principles of ALARA. FINDINGS: There is an indwelling tracheostomy tube. There is no apical pneumothorax. There are dependent groundglass opacities the lung apices. There is mild interlobular septal edema. The prevertebral soft tissues are normal. No acute fractures or traumatic subluxations are visualized within the cervical spine. Mild superior endplate T2 and T3 deformities are likely chronic There are multilevel degenerative changes IMPRESSION: 1. No evidence of acute fracture or traumatic subluxation within the cervical spine 2. Minor superior endplate T2 and T3 deformities, likely chronic ACT 112: Negative or not required by law. Electronically signed by: Elkin Molina M.D. 09/28/2020 6:[address] 09/28/20 16:52 CT head/brain wo con CLINICAL HISTORY: Confusion. Unresponsive patient. COMPARISON STUDY: No previous studies for comparison. TECHNIQUE: Axial CT of the brain is performed from the vertex to the skull base. IV contrast was not administered for this examination. A dose lowering technique was utilized adhering to the principles of ALARA. CT DOSE: FINDINGS: No intra or extra-axial mass lesions are visualized. There is no CT evidence of acute cortical infarction. There is no evidence of midline shift. There is no acute hemorrhage. No calvarial fractures are visualized. There are moderate white matter hypodensities likely on a small vessel basis. There is no evidence of pathologic ventricular dilatation. There is no evidence of acute sinusitis IMPRESSION: 1. Moderate age advanced white matter disease, likely on a small vessel ischemic basis 2. No evidence of acute hemorrhage 3. No evidence of intracranial mass on this noncontrast study ACT 112: Negative or not required by law. Electronically signed by: Elkin Molina M.D. 09/28/2020 5:59 PM Discharge Plan Visit Data Chief Complaint: Unresponsive ED Provider: Brenton Hamilton Discharge Problem: Unresponsive episode, Hypertension, Hypoglycemia, Collapse Patient Disposition: Admitted As Inpatient Condition: Serious Discharge Instructions Interventions: ED Discharge Assessment Last Done: 09/28/20 20:23 Discharge Problem: Hypertension Qualifiers: Hypertension type: unspecified Qualified Code(s): I10 - Essential (primary) hypertension
[2020-09-28 17:11] LABS: iSTAT Arterial Blood Gas HCO3 29 meg/L (19-24); iSTAT Arterial Blood Gas pCO2 55 mmHg (35-46); iSTAT Arterial Blood Gas pH 7.33 (7.35-7.45); iSTAT Arterial Blood Gas pO2 126 mmHg (80-95); iSTAT Carbon Dioxide 31 mmol/L (24-31); iSTAT Hematocrit 43 % (42-52); iSTAT Hemoglobin 14.6 g/dl (14.0-18.0); iSTAT Potassium 3.2 mmol/L (3.3-5.0); iSTAT Sodium 140 mmol/L (135-144)
[2020-09-28 17:11] LABS: Hematocrit (blood only) 44.1 % (42-52); Hemoglobin 15.9 g/dL (14.0-18.0); Immature Granulocytes # (auto) 0.02 K/uL (0.00-0.02); Immature Granulocytes % (auto) 0.2 %; Lymphocytes # (auto) 0.47 K/uL (1.2-3.4); Lymphocytes % (auto) 4.2 %; Mean Corpuscular Hemoglobin 30.9 pg (25-34); Mean Corpuscular Hgb Conc 36.1 g/dL (32-36); Mean Corpuscular Volume 85.8 fL (80-100); Mean Platelet Volume 8.8 fL (7.4-10.4); Monocytes # (auto) 0.51 K/uL (0.11-0.59); Monocytes % (auto) 4.6 %; Neutrophils # (auto) 10.16 K/uL (1.4-6.5); Platelet Count 190 K/uL (130-400); RDW Standard Deviation 41.1 fL (36.4-46.3); Red Blood Count 5.14 M/uL (4.7-6.1); White Blood Count 11.16 K/uL (4.8-10.8)
[2020-09-28 17:17] LABS: iSTAT Creatinine 0.7 mg/dl (0.6-1.3); iSTAT Ionized Calcium 1.16 mmol/l (1.12-1.32); iSTAT Potassium 3.4 mmol/L (3.3-5.0)
[2020-09-28 17:26] LABS: INR 1.1 (0.9-1.1); Partial Thromboplastin Time 26.6 Seconds (21.0-31.0)
[2020-09-28] MEDS ORDERED: D5W AND 1/2NSS 1,000 ML IV STA ×2 (17:34→19:45)
[2020-09-28 17:40] LABS: Alanine Aminotransferase 28 U/L (12-78); Albumin Level 3.5 gm/dl (3.4-5.0); Aspartate Aminotransferase 25 U/L (15-37); BUN Creatinine Ratio 13.3 (10-20); Blood Urea Nitrogen 12 mg/dl (7-18); Calcium 8.5 mg/dl (8.5-10.1); Carbon Dioxide 28 mmol/L (21-32); Chloride 102 mmol/L (98-107); Est GFR (African American) 100.8 ml/min; Glucose 133 mg/dl (70-99); Magnesium 1.7 mg/dl (1.8-2.4); Potassium 3.4 mmol/L (3.5-5.1); Sodium 138 mmol/L (136-145)
[2020-09-28 17:51] LABS: Albumin Globulin Ratio 0.8 (0.9-2); Alkaline Phosphatase 109 U/L (45-117); Bilirubin,Total 0.8 mg/dl (0.2-1); Creatine Kinase 615 U/L (39-308); Globulin 4.6 gm/dl (2.5-4.0); Phosphorus 2.8 mg/dl (2.5-4.9); Total Protein 8.1 gm/dl (6.4-8.2); Troponin I < 0.015 ng/ml (0-0.045)
[2020-09-28 17:54] LABS: Appearance Urine Clear (Clear); Bacteria Urine Automated Negative (Negative); Bilirubin Urine Negative (Negative); Blood Urine 1+ (Negative); Color Urine Yellow; Glucose Urine UA Trace (Negative); Ketones Urine Negative (Negative); Leukocyte Esterase Urine Negative (Negative); Nitrite Urine Negative (Negative); RBC Urine Automated 0-4 /hpf (0-4); Specific Gravity Urine 1.017 (1.000-1.030); Urobilinogen Urine Negative (Negative); WBC Urine Automated 0 /hpf (0-5); pH Urine 7.5 (4.5-7.5)
[2020-09-28 17:56] LABS: Protein Urine 2+ (Negative)
--- NOTE | 2020-09-28 18:00 | CT Scan Report ---
CT head/brain wo con CLINICAL HISTORY: Confusion. Unresponsive patient. COMPARISON STUDY: No previous studies for comparison. TECHNIQUE: Axial CT of the brain is performed from the vertex to the skull base. IV contrast was not administered for this examination. A dose lowering technique was utilized adhering to the principles of ALARA. CT DOSE: FINDINGS: No intra or extra-axial mass lesions are visualized. There is no CT evidence of acute cortical infarc tion. There is no evidence of midline shift. There is no acute hemorrhage. No calvarial fractures ar e visualized. There are moderate white matter hypodensities likely on a small vessel basis. There is no evidence of pathologic ventricular dilatation. There is no evidence of acute sinusitis IMPRESSION: 1. Moderate age advanced white matter disease, likely on a small vessel ischemic basis 2. No evidence of acute hemorrhage 3. No evidence of intracranial mass on this noncontrast study ACT 112: Negative or not required by law. Electronically signed by: Elkin Molina M.D. 09/28/2020 5:59 PM
--- NOTE | 2020-09-28 18:14 | CT Scan Report ---
CT OF THE CERVICAL SPINE CLINICAL HISTORY: Neck pain status post trauma COMPARISON STUDY: X-ray study performed May [address] CT DOSE: 1596.10 mGy.cm TECHNIQUE: CT scan of the cervical spine was performed from the skull base to the thoracic inlet. Iraida ges are reviewed in the axial, sagittal, and coronal planes. IV contrast was not administered for thi s examination. A dose lowering technique was utilized adhering to the principles of ALARA. FINDINGS: There is an indwelling tracheostomy tube. There is no apical pneumothorax. There are dependent ground glass opacities the lung apices. There is mild interlobular septal edema. The prevertebral soft tissues are normal. No acute fractures or traumatic subluxations are visualize d within the cervical spine. Mild superior endplate T2 and T3 deformities are likely chronic There are multilevel degenerative changes IMPRESSION: 1. No evidence of acute fracture or traumatic subluxation within the cervical spine 2. Minor superior endplate T2 and T3 deformities, likely chronic ACT 112: Negative or not required by law. Electronically signed by: Elkin Molina M.D. 09/28/2020 6:13 PM
[2020-09-28] MEDS ORDERED: LORazepam 2 MG/4 ML VIAL IV STA (18:26)
[2020-09-28 18:35] LABS: Amphetamines+Metham, Urine Neg (Neg); Barbiturates, Urine Neg (Neg); Benzodiazepine, Urine Neg (Neg); Cocaine, Urine Neg (Neg); MDMA (Ecstacy), Urine Neg (Neg); Methadone, Urine Neg (Neg); Opiate, Urine Neg (Neg); Phencyclidine, Urine Neg (Neg)
[2020-09-28] MEDS ORDERED: ICU PROTOCOL FOR HYPERGLYCEMIA PRN ×2 (18:49→21:26)
--- NOTE | 2020-09-28 18:58 | Critical Care Consultation ---
Date of Consultation September 28, 2020 Assessment & Plan (1) HTN (hypertension): Reason Critically Ill: Lars is a 65-year-old gentleman with a notable past medical history of type 2 diabetes, hyperlipidemia, atrial fibrillation on Xarelto and Toprol, hypertension, and history of right knee prepatellar bursitis who presented to by ambulance after being found unresponsive and profoundly hypoglycemic at home. En route to [facility] and in the ED, he was found to have right eye deviation and decorticate posturing. Although HPI is quite limited, current thought is that this patient suffered from prolonged, profound hypoglycemia that has resulted in cerebral defects VS. an acute stroke (especially in setting of AF, questionable medication compliance). He requires ICU level care for management of his mechanical ventilation and for hemodynamic monitoring. Neuro - Sedation: Propofol in setting of mechanical ventilation Analgesia: None at present. Acute Encephalopathy / Unresponsiveness * Unclear etiology at present. Patient found unresponsive, and in ED, was minimally responsive to pain - although did demonstrate decorticate posturing prior to my exam -- perhaps some LUE>RUE spasticity. Hyperreflexia. * Acute CVA considered as possibility -- last known normal yesterday evening per interprovider communication * Patient with known history of AF (on Xarelto, Toprol), HTN, ID-DM2 -- i nitial question of medication compliance, good pt friend says she thinks he was reliable * CT-H unrevealing of any hemorrhagic or otherwise acute process * Stat nct-MRI ordered * TTE ordered * EEG in AM * A1c, lipids -- of note, patient on statin, insulin * Consult neurology * Neuro-checks q1h x 4, thereafter q4h * Prolonged, profound hypoglycemia resulting in encephalopathy also considered as possibility * BSG on EMS arrival = ~20 * Per good pt friend, Foster has been found many times in driveway/yard hypoglycemic from taking too much insulin * EEG, MRI - work-up otherwise as above * Otherwise: no major lyte abnormalities, no major blood gas abnormalities, mild leukocytosis w/o shift, lactate 3.3. No obvious source of infection on exam -- s/p cefepime x 1 in ED -- add procal -- await bcx -- consider CT-AP * Maintain intubation w/ MV Cardiac - Atrial Fibrillation with Rapid Ventricular Rate * Upon arrival, patient was found to be hypertensive in AF w/ RVR * s/p multiple doses of labetalol in the ED with adequate control of rate * Continue metoprolol succinate * Hold Xarelto " TTE performed 07/19/20. EF 45-50%. Mild global hypokinesia and decreased function of LV. Moderate LV concentric hypertrophy. LA mildly dilated. Mild to moderate mitral regurgitation. Mild aortic root dilation. RV systolic function normal." -- from PCP note Respiratory - VDRF * Intubated secondary to AMS and concern for airway protection * Propofol prn for sedation * No known h/o respiratory disease otherwise GI - * NPO for now RENAL/LYTES - * No significant electrolyte abnormalities * Maintain K > 4, Mg > 2, Phos > 3 * No ANNA on labs - * [facility] - Hypoglycemia, History of T2DM * Patient with known history of T2DM -- seems to be on metformin 500 bid and Relion 70/30 20U bid * Patient found with BSG 20 on EMS arrival - following glucose administration, has returned up to ~100s without significant change * Glycemic consult, hold home meds Hypothyroid * Continue levothyroxine * TSH, fT4 ordered. HEME - * Stable H&H at present * Continue to monitor ID - * see above -- metabolic encephalopathy INTEGUMENTARY - * No acute concerns LINES/IV ACCESS - PIVs intact. DVT PROPHYLAXIS - * SCD s Thank you for allowing us to be part of this patient's care. Please refer to Dr. Garcia's documentation for any further recommendations. (2) Paroxysmal A-fib: (3) Diabetes: (4) Cardiomyopathy: (5) Insomnia: (6) Seborrheic dermatitis of scalp: (7) Hyperlipidemia: (8) Hypothyroidism: (9) History of alcoholism: (10) Tobacco abuse: (11) Septic prepatellar bursitis: (12) Screening PSA (prostate specific antigen): (13) Obesity, diabetes, and hypertension syndrome: (14) Hypoglycemia: Supervising Physician Co-Signing Physician Notes was resident physician during care of patient. I separately evaluated patient for sanders portions of the history and the exam. I was present during the critical portion of medical decision making, and I discussed the case with the resident. I generally agree with the findings and plan. I am concerned the patient has had a cerebrovascular accident either from paroxysmal A. fib with embolism or possibly profound prolonged hypoglycemia. We will obtain an MRI and EEG. I have personally spent 55 minutes of critical care time in the direct management of this patient. This is a life/limb threatening event. This includes time spent evaluating patient, direct bedside care, chart review, placing orders, interpretation of diagnostic studies, discussion with consultants, patient, and/or family members regarding treatment decisions, as well as other required patient management activities. This time is exclusive of all separately billable procedures, and teaching time and separate from and in addition to any other critical care service time. History of Present Illness History of Present Illness Lars is a 65-year-old gentleman with a notable past medical history of type 2 diabetes, hyperlipidemia, atrial fibrillation on Xarelto and Toprol, hypertension, and history of right knee prepatellar bursitis who presented to by ambulance after being found unresponsive at home. History is solely obtained through interprovider communication given the patient is unresponsive and unable to respond to questions at the time of my visit. Apparently, this gentleman did not show for work this morning and his neighbors had gone to check on him. He was found unresponsive on the floor and was noted to have a blood sugar of 20 despite receiving dextrose and a repeat sugar showing normalcy, the patient failed to become more responsivein route to the [facility], he was noted to have decorticate posturing, as well as right eye deviationwhich continued upon his arrival here. After talking with his good friend in the ED, she notes that he has been found many times hypoglycemic in his driveway, backyard after taking too much insulin In the ER, patient was intubated and initiated on mechanical ventilation. He was found to be in atrial fibrillation with rapid ventricular response with rates around 90-110. He was hypertensive to the 170-200/150 range. Temperature 36.4. His head CT was revealing of small vessel disease, but no acute process. His cervical neck CT demonstrated minor endplate T2 and T3 deformities, thought to be chronic. He was given intravenous labetalol. Chest x-ray demonstrated left lung airspace opacities. Mild leukocytosis to 11. Normal hemoglobin he matocrit. Blood gases significant for respiratory acidosis with metabolic compensation. BMP without significant electrolyte abnormalities. Glucose 133. Lactate 3.4. Creatinine kinase 615. UDS moreau negative. Patient was admitted to the ICU for continued hemodynamic monitoring as well as management of his endotracheal intubation/mechanical ventilation. Allergies Allergy/AdvReac Type Severity Reaction Status Date / Time No Known Allergies Allergy Verified 09/28/20 17:01 Home Medications Medication Instructions Recorded Confirmed Type metformin 500 mg tablet,extended 500 mg PO BID #60 tab 10/20/19 09/28/20 Rx release 24hr trazodone 50 mg tablet 50 mg PO HS PRN 07/16/20 09/28/20 History atorvastatin 40 mg tablet 40 mg PO QPM #30 tab 07/30/20 09/10/20 Rx insulin human U-100 NPH-regulr 20 unit SUBCUT BID #20 ml 07/30/20 09/28/20 Rx 70-30 mix 100 unit/mL subcutaneous susp (Novolin 70/30 U-100 Insulin) lisinopril 40 mg tablet 40 mg PO DAILY #30 tab 08/10/20 09/28/20 Rx levothyroxine 125 mcg tablet 125 mcg PO DAILY #30 tab 08/31/20 09/28/20 Rx rivaroxaban 20 mg tablet (Xarelto) 20 mg PO DAILY@1800 30 Days #30 tab 09/01/20 09/28/20 Rx atorvastatin 40 mg tablet 40 mg PO QPM 09/28/20 09/28/20 History metoprolol succinate 100 mg 50 mg PO DAILY 09/28/20 09/28/20 History tablet,extended release 24 hr Patient History Medical History Cough Diabetes History of alcoholism History of prostate cancer HTN (hypertension) Hyperlipidemia Hypothyroidism Insomnia Nausea Seborrheic dermatitis of scalp Sore throat Tobacco abuse Vitamin D deficiency Surgical History History of left knee surgery History of shoulder surgery Left Family History Mother Cancer Grandmother (Paternal) Stroke Grandfather (Paternal) Stroke Other Myocardial infarction Denies family history of Ovarian cancer Prostate cancer Breast cancer Colorectal cancer Social History Smoking Status: Unknown if ever smoked Second Hand Exposure: No; Do You Dip or Chew Tobacco: Yes; Preferred Language: Dutch Communication Ability: Effective 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 On my initial exam, he is not responsive to verbal, tactile, or noxious stimuli. No obvious posturing. HEENT: NCAT. Eyes - Sclera are white, anicteric, and without injection. Mouth - MMM with no tonsillar edema or exudates. Cardiac: Tachycardic with irregular rhythm; S1 and S2 present with no murmurs, rubs, or gallops. Pulmonary: Mechanically ventilated. Lungs were clear to auscultation bilaterally with no crackles or wheezes. Abdominal: Normoactive bowel sounds. Abdomen was mildly distended to palpation. Extremities: Upper and lower extremities are warm and well perfused. Radial and dorsalis pedis pulses were 2+ b/l. Left knee vertical incision noted. No TTP over knee. - Capillary refill assessed in UE was approx. 2 seconds Neuro: - II - pupils midline at the time of my exam, PERRL. III: Corneal reflexes weak. Oculo-cephalic reflex negative. - Motor: UE - soft-restraints in place at time of my exam. There seems to be increased spasticity just mildly L > R, but present b/l - Sensation: Not responsive to painful stimuli on my initial exam - Reflexes - Biceps and brachioradials 3+ bilaterally. Patellar 3+. - Mbbwyu-wy-vwgi: WNL b/l. No dysmetria. [id number]-tz-[id number]; WNL b/l. Results & Data Results & Data ([facility]) Vital Signs (Past 12 Hours) Vital Signs Temp Pulse Resp BP Pulse Ox 09/28/20 18:25 84 178/108 H 97 09/28/20 18:21 82 164/141 H 97 09/28/20 18:10 104 H 174/142 H 91 09/28/20 17:36 36.4 C L 09/28/20 17:30 105 H 162/118 H 97 09/28/20 17:21 101 H 185/127 H 96 09/28/20 17:10 96 H 188/140 H 96 09/28/20 17:06 104 H 98 09/28/20 17:02 18 09/28/20 17:01 120 H 199/157 H 99 09/28/20 16:51 113 H 16 98 09/28/20 16:48 116 H 25 H 202/168 H 88 L 09/28/20 16:36 102 H 29 H 176/117 H 96 Resident Activity Tracking Resident Involvement: Resident Care Provided Care Provided: [facility] Medicine (1) Septic prepatellar bursitis Laterality: right Qualified Code(s): M71.161 - Other infective bursitis, right knee
[2020-09-28] MEDS ORDERED: PHARMACIST DISCHARGE MED REC CONSULT PRN (19:41)
[2020-09-28] MEDS ORDERED: fentaNYL citrate 100 MCG/2 ML VIAL IV STA (19:46)
[2020-09-28] MEDS ORDERED: PHARMACY GLYCEMIC MGMT CONSULT PRN (21:10)
[2020-09-28] MEDS ORDERED: traZODone HCL 50 MG TAB PO PRN (21:26)
[2020-09-28 22:06] LABS: Base Excess VBG -10.6 mEq/L; HCO3 VBG 15 mmol/L; Oxygen Saturation VBG < 60.0 %; PCO2 VBG 34 mmHg (38-50); PO2 VBG 26 mmHg; pH VBG 7.27 (7.36-7.41)
--- NOTE | 2020-09-28 23:02 | History & Physical Report ---
Date of Service September 28, 2020 Assessment & Plan (1) Unresponsive episode: Patient found to be unresponsive and was intubated for airway protection. Patient will be admitted to the ICU. Patient appears to have suffered fro prolonged hypoglycemia. Placed on abx (2) Hypertension: will resume metoprolol (3) HTN (hypertension): (4) Paroxysmal A-fib: (5) Hyperlipidemia: resume home meds (6) Hypothyroidism: resume home meds Admission and Anticipated Discharge Date Admission Date: September 28, 2020 History of Present Illness Chief Complaint: unresponsiveness Primary Care Provider: Jg Valdez DO Lars is a 65 yo male with PMH: DMII, hyperlipidemia, atrial fib, HTN who comes into the hospital after being found to be unresponsive. Given patient was unresponsive, history was obtained via ER provider. It appears patient did not show up for work and his neighor whn to check in on him. He was found to be unresponsive on the floor. His blod sugar was noted at around 20. He was noted in decorticate posturing. In the ER, patient was intubated and initiated on mechanical ventilation. Patient was admitted to the ICU for continued hemodynamic monitoring as well as management of his endotracheal intubation/mechanical ventilation. Allergies Allergy/AdvReac Type Severity Reaction Status Date / Time No Known Allergies Allergy Verified 09/28/20 17:01 Home Medications Medication Instructions Recorded Confirmed Type metformin 500 mg tablet,extended 500 mg PO BID #60 tab 10/20/19 09/28/20 Rx release 24hr trazodone 50 mg PO HS PRN 07/16/20 09/28/20 History atorvastatin 40 mg tablet 40 mg PO QPM #30 tab 07/30/20 09/10/20 Rx insulin human U-100 NPH-regulr 20 unit SUBCUT BID #20 ml 07/30/20 09/28/20 Rx 70-30 mix 100 unit/mL subcutaneous susp lisinopril 40 mg tablet 40 mg PO DAILY #30 tab 08/10/20 09/28/20 Rx levothyroxine 125 mcg tablet 125 mcg PO DAILY #30 tab 08/31/20 09/28/20 Rx rivaroxaban 20 mg tablet 20 mg PO DAILY@1800 30 Days #30 tab 09/01/20 09/28/20 Rx atorvastatin 40 mg PO QPM 09/28/20 09/28/20 History metoprolol succinate 50 mg PO DAILY 09/28/20 09/28/20 History Past Med/Surg History Medical History Cough Diabetes History of alcoholism History of prostate cancer HTN (hypertension) Hyperlipidemia Hypothyroidism Insomnia Nausea Seborrheic dermatitis of scalp Sore throat Tobacco abuse Vitamin D deficiency Surgical History History of left knee surgery History of shoulder surgery Left Family History Mother Cancer Grandmother (Paternal) Stroke Grandfather (Paternal) Stroke Other Myocardial infarction Denies family history of Ovarian cancer Prostate cancer Breast cancer Colorectal cancer Social History Smoking Status: Unknown if ever smoked Second Hand Exposure: No; Do You Dip or Chew Tobacco: Yes; Preferred Language: Burkinan Communication Ability: Effective Dental Office Coordinator Required: No Beliefs That Will Affect Care: None marital status: Current Living Situation: Alone 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 No obvious posturing. HEENT: NCAT. Cardiac: Tachycardic with irregular rhythm; S1 and S2 present with no murmurs, rubs, or gallops. Pulmonary: Mechanically ventilated. Lungs were clear to auscultation bilaterally with no crackles or wheezes. Abdominal: Normoactive bowel sounds. Abdomen was mildly distended to palpation. Extremities: Upper and lower extremities are warm and well perfused. Results & Data Results & Data ([facility]) Vital Signs (Past 12 Hours) Vital Signs Temp Pulse Resp BP Pulse Ox 09/28/20 20:20 86 89/58 L 96 09/28/20 20:10 82 96/65 L 96 09/28/20 20:01 89 110/70 96 09/28/20 19:50 96 H 171/115 H 99 09/28/20 19:40 101 H 164/118 H 96 09/28/20 19:30 91 H 162/108 H 100 09/28/20 19:20 98 H 149/110 H 98 09/28/20 19:10 96 H 157/100 H 99 09/28/20 19:01 91 H 144/96 H 99 09/28/20 18:51 96 H 141/93 H 99 09/28/20 18:41 77 159/122 H 100 09/28/20 18:31 90 164/120 H 100 09/28/20 18:25 84 178/108 H 97 09/28/20 18:21 82 164/141 H 97 09/28/20 18:10 104 H 174/142 H 91 09/28/20 17:36 36.4 C L 09/28/20 17:30 105 H 162/118 H 97 09/28/20 17:21 101 H 185/127 H 96 09/28/20 17:10 96 H 188/140 H 96 09/28/20 17:06 104 H 98 09/28/20 17:02 18 09/28/20 17:01 120 H 199/157 H 99 09/28/20 16:51 113 H 16 98 09/28/20 16:48 116 H 25 H 202/168 H 88 L 09/28/20 16:36 102 H 29 H 176/117 H 96 Code Status & VTE Plan VTE Prophylaxis Plan VTE Prophylaxis will be ordered: No PG Care Time/CCT Total # of Minutes Spent Total Time Spent with Patient: Total time spent is greater than 50% in coordination of care (as documented) at patient's floor/unit and/or counseling patient: Coding Level of Care Code 88419 Initial Inpt Care Lvl 3 Diagnoses Unresponsive episode R41.89 Hypertension I10 Hypertension type: unspecified HTN (hypertension) I10 Paroxysmal A-fib I48.0 Hyperlipidemia E78.5 Hypothyroidism E03.9 (1) Hypertension Hypertension type: unspecified Qualified Code(s): I10 - Essential (primary) hypertension
[2020-09-28] MEDS: ATORVASTATIN 40 MG TAB PO SCH (23:47)
--- NOTE | 2020-09-29 00:01 | Communication Note ---
Date of Service: September 28, 2020 2651: Spoke with Patient's Brother, Lars Kumar ([phone]). Provided update regarding brother's ongoing care. He states that he and his will be tr aveling from [place] to [place] tomorrow. Discussed code status. Lars suggests that his brother would not wish to be a "vegetable". When I questioned further regarding CODE STATUS including chest compressions, shock, and medications, he states that his brother would not want any of these. He is comfortable continuing with intubation and mechanical ventilation at this time. He is comfortable with ongoing care to attempt to provide indication as to underlying medical cause for current status. Otherwise, in the event of cardiovascular collapse, patient will be made a DNR/DNI per family request. I have personally spent 15 minutes of critical care time in the direct management of this patient. This is a life/limb threatening event. This includes time spent evaluating patient, direct bedside care, chart review, placing orders, interpretation of diagnostic studies, discussion with consultants, patient, and family members, as well as other required patient management activities. This time is exclusive of all separately billable procedures, and teaching time and separate from and in addition to any other critical care service time. Coding Level of Care Code Critical Care myron lozano'abdiaziz 30 min Time Spent (min) 15
[2020-09-29] MEDS ORDERED: CARBOHYDRATES FOR HYPOGLYCEMIA PO PRN (01:30)
[2020-09-29] MEDS ORDERED: GLUCAGON FOR INJ 1 MG VIAL IM PRN (01:30)
[2020-09-29] MEDS ORDERED: GLUCOSE 40% GEL 15 GM TUBE PO PRN (01:30)
[2020-09-29] MEDS ORDERED: GLUCOSE 10 TABS/TUBE PO PRN (01:30)
[2020-09-29] MEDS ORDERED: DEXTROSE 50% 50 ML SYRINGE IV PRN (01:30)
[2020-09-29 05:08] LABS: iSTAT Allen Test Pass; iSTAT Arterial Blood Gas HCO3 29 meg/L (19-24); iSTAT Arterial Blood Gas pCO2 44 mmHg (35-46); iSTAT Arterial Blood Gas pH 7.42 (7.35-7.45); iSTAT Arterial Blood Gas pO2 93 mmHg (80-95); iSTAT Carbon Dioxide 30 mmol/L (24-31); iSTAT FiO2 30 %; iSTAT Site R Radial
[2020-09-29 05:13] LABS: Basophils # (auto) 0.01 K/uL (0-0.2); Basophils % (auto) 0.1 %; Eosinophils # (auto) 0.05 K/uL (0-0.5); Eosinophils % (auto) 0.6 %; Hematocrit (blood only) 38.3 % (42-52); Immature Granulocytes # (auto) 0.01 K/uL (0.00-0.02); Immature Granulocytes % (auto) 0.1 %; Lymphocytes # (auto) 1.89 K/uL (1.2-3.4); Lymphocytes % (auto) 21.2 %; Mean Corpuscular Hemoglobin 30.2 pg (25-34); Mean Corpuscular Hgb Conc 33.9 g/dL (32-36); Mean Corpuscular Volume 88.9 fL (80-100); Mean Platelet Volume 9.1 fL (7.4-10.4); Monocytes # (auto) 1.12 K/uL (0.11-0.59); Monocytes % (auto) 12.6 %; Neutrophils # (auto) 5.82 K/uL (1.4-6.5); Neutrophils % (auto) 65.4 %; Platelet Count 180 K/uL (130-400); RDW Coefficient of Variation 13.5 % (11.5-14.5); RDW Standard Deviation 44.3 fL (36.4-46.3); Red Blood Count 4.31 M/uL (4.7-6.1)
[2020-09-29] MEDS: propofoL 1,000 MG/100 ML VIAL IV SCH ×4 (05:27→20:37)
[2020-09-29 05:36] LABS: BUN Creatinine Ratio 15.3 (10-20); Calcium 7.9 mg/dl (8.5-10.1); Creatinine Clr Calc Pharmacy 91.1 ml/min; Est GFR (African American) 86.9 ml/min; Magnesium 1.6 mg/dl (1.8-2.4); Potassium 3.2 mmol/L (3.5-5.1)
[2020-09-29] MEDS ORDERED: INSULIN ASPART 100 UNITS/ML 3 ML PEN SC SCH (06:00)
[2020-09-29] MEDS: LEVOTHYROXINE SODIUM 125 MCG TABLET PO SCH (06:25)
[2020-09-29 07:05] LABS: Estimated Average Glucose 209 mg/dl; Hemoglobin A1C 8.9 % (4.5-5.6)
[2020-09-29 07:09] LABS: Phosphorus 4.5 mg/dl (2.5-4.9)
--- NOTE | 2020-09-29 07:27 | Billing Data ---
Date of Service September 28, 2020 Coding Level of Care Code Critical Care 1st 30-74 mins
--- NOTE | 2020-09-29 08:12 | XRay Report ---
XR chest 1V portable HISTORY: Respiratory distress. COMPARISON: Chest 09/28/2020. FINDINGS: The endotracheal tube terminates 4.6 cm from the josh. No pneumothorax. Suspect a trace l eft pleural effusion. Interstitial thickening and bibasilar densities have slightly improved. The hea rt remains mildly enlarged. Nasogastric tube terminates in the proximal stomach. IMPRESSION: 1. Satisfactory support line placement. 2. Slight improved aeration within the lungs. ACT 112: Negative or not required by law. Electronically signed by: José Miguel Aldridge M.D. 09/29/2020 8:10 AM
[2020-09-29] MEDS ORDERED: INSULIN GLARGINE SOLOSTAR 100 UNITS/ML 3 ML PEN SC ONE ×3 (08:15→20:00)
--- NOTE | 2020-09-29 08:21 | Magnetic Resonance Report ---
MRI OF THE BRAIN WITHOUT CONTRAST CLINICAL HISTORY: Unresponsive patient. Possible trauma. COMPARISON STUDY: Noncontrast head CT dated 09/28/2020 FINDINGS: Sagittal T1, axial diffusion, and T2 weighted axial, coronal FLAIR, and axial T1-weighted images were acquired. No intra or extra-axial mass lesions are visualized Axial diffusion-weighted images reveal no evidence of acute or subacute infarction. There is no evidence of ventricular dilatation. Proton density T2-weighted and FLAIR images reveal moderately extensive age advanced foci of increase d T2 signal within the white matter, likely on a small vessel basis. There are no abnormal flow voids. IMPRESSION: 1. No acute intracranial findings 2. Moderately extensive age advanced white matter disease likely small vessel ischemic basis 3. No evidence of acute or subacute infarction 4. No evidence of intracranial mass on this noncontrast study ACT 112: Negative or not required by law. Electronically signed by: Elkin Molina M.D. 09/29/2020 8:19 AM
[2020-09-29] MEDS: POTASSIUM CHLORIDE / WTR 10 MEQ/100 ML PLCT IV SCH ×4 (08:25→12:01)
[2020-09-29] MEDS: MAGNESIUM SULFATE / D5W 1 GM/100 ML BAG IV SCH ×2 (08:25→09:33)
[2020-09-29] MEDS: METOPROLOL SUCC 50MG EXT REL TAB PO SCH (08:26)
[2020-09-29] MEDS: lisinopril 40 MG TAB PO SCH (08:26)
--- NOTE | 2020-09-29 09:29 | Critical Care Progress Note ---
Date of Service September 29, 2020 Assessment & Plan (1) HTN (hypertension): Plan: Reason Critically Ill: Lars ("Foster") Stacy is a 65-year-old gentleman with a notable past medical history of type 2 diabetes, hyperlipidemia, atrial fibrillation on Xarelto and Toprol, hypertension, and history of right knee prepatellar bursitis who presented to [facility] by ambulance after being found unresponsive and profoundly hypoglycemic at home. En route to [facility] and in the ED, he was found to have right eye deviation and decorticate posturing. Although HPI is quite limited, current thought is that this patient suffered from prolonged, profound hypoglycemia that has resulted in cerebral defects VS. an acute stroke (especially in setting of AF, questionable medication compliance). He requires ICU level care for management of his mechanical ventilation and for hemodynamic monitoring. Neuro - CAM-ICU: Unobtainable due to unresponsiveness Sedation: Propofol in setting of mechanical ventilation Analgesia: None at present. Acute Encephalopathy / Unresponsiveness * Remains obtunded. Brainstem reflexes partially intact. R eye deviation and LUE spasticity yesterday no longer present -- more flaccid * Suspect that this represents ongoing encephalopathy and cerebral damage from prolonged hypoglycemia at present -- especially considering he was found with BSG 20 on EMS arrival (and known hx that patient has had several instances where he has taken too much insulin and has been found unconscious), but failure to improve after IV glucose administratino. -- CVA initially considered, but seems less likely at this time given normal nCT, MRI * Patient with known history of AF (on Xarelto, Toprol), HTN, ID-DM2 -- initial question of medication compliance, good pt friend says she thinks he was reliable * Await TTE * Await results of EEG * Neuro-checks q1h x 4, thereafter q4h * Neurology consulted: appreciate insight and recommendations * Otherwise: no major lyte abnormalities, no major blood gas abnormalities, no leukocytosis, normalized lactate, negative procalc. No obvious source of infection on exam -- did receive cefepime x 1 in the ED -- Await BCX -- LP cannot be performed until >72 hours from last Xarelto dose by current guidelines, will continue to consider * Maintain intubation w/ MV Patient's brother and [id number] are coming up from [place] today to see Foster. They have requested that in the case of cardiovascular collapse, intensive resuscitation methods (like CPR) not be performed. Please see Abrahan Fuentes PA-C, note from 09/28 regarding this discussion. Overall prognosis at present is guarded Cardiac - Atrial Fibrillation with Rapid Ventricular Rate * Upon arrival, patient was found to be hypertensive in AF w/ RVR * s/p multiple doses of labetalol in the ED with adequate control of rate * Normal rates at present, hold metoprolol - IV Lopressor prn * Hold Xarelto " TTE performed 07/19/20. EF 45-50%. Mild global hypokinesia and decreased function of LV. Moderate LV concentric hypertrophy. LA mildly dilated. Mild to moderate mitral regurgitation. Mild aortic root dilation. RV systolic function normal." -- from PCP note Respiratory - VDRF * Intubated secondary to AMS and concern for airway protection * Will decrease RR to evaluate for spontaneous breathing * Propofol prn for sedation * No known h/o respiratory disease otherwise GI - * NPO for now RENAL/LYTES - * No significant electrolyte abnormalities * Maintain K > 4, Mg > 2, Phos > 3 * No ANNA on labs - * [facility] - Hypoglycemia, History of T2DM * Patient with known history of T2DM -- seems to be on metformin 500 bid and Relion 70/30 20U bid * Patient found with BSG 20 on EMS arrival - following glucose administration, has returned up to ~100s without significant change * With reported history (by friend) of several episodes of unresponsiveness in the past from taking too much insulin * Glycemic consult, hold home meds * A1c 8.9% Hypothyroid * Synthroid * TSH normal HEME - * Stable H&H at present * Continue to monitor ID - * see above -- metabolic encephalopathy INTEGUMENTARY - * No acute concerns LINES/IV ACCESS - PIVs intact. DVT PROPHYLAXIS - * SCDs * Famotidine Thank you for allowing us to be part of this patient's care. Please refer to Dr. Garcia's documentation for any further recommendations. (2) Paroxysmal A-fib: (3) Diabetes: (4) Cardiomyopathy: (5) Insomnia: (6) Seborrheic dermatitis of scalp: (7) Hyperlipidemia: (8) Hypothyroidism: (9) History of alcoholism: (10) Tobacco abuse: (11) Septic prepatellar bursitis: (12) Screening PSA (prostate specific antigen): (13) Obesity, diabetes, and hypertension syndrome: (14) Hypoglycemia: Admission and Anticipated Discharge Date Admission Date: September 28, 2020 Supervising Physician Co-Signing Physician Notes Dr. Madrid was resident physician during care of patient. I separately evaluated patient for sanders portions of the history and the exam. I was present during the critical portion of medical decision making, and I discussed the case with the resident. I generally agree with the findings and plan. I am concerned that this is a global brain injury from hypoglycemia given the reports from friends that he has had numerous hypoglycemic episodes. He is supposed to be on Xarelto if he was taking correctly has been off for 24 hours we will consider this if we need to proceed with lumbar puncture however I do not believe that this is inventory representative of meningitis and the sudden onset would likely preclude paraneoplastic syndromes EEG completed awaiting results. Family coming from [place]. Weak gag reflex, will decrease ventilator to evaluate for spontaneous breathing. Per institutional guidelines we would wait 72 hours prior to obtaining CSF if this is felt necessary. No antibiotics at this time, white count normal no obvious evidence of infection procalcitonin normal and afebrile. I have personally spent 45 minutes of critical care time in the direct management of this patient. This is a life/limb threatening event. This includes time spent evaluating patient, direct bedside care, chart review, placing orders, interpretation of diagnostic studies, discussion with consultants, patient, and/or family members regarding treatment decisions, as well as other required patient management activities. This time is exclusive of all separately billable procedures, and teaching time and separate from and in addition to any other critical care service time. Subjective No acute events overnight. Patient remains on ventilator support for concerns of protecting his airway/remaining obtunded. Per nursing - does have gag and cough. Patient is unable to respond to my questions, and does not demonstrate significant responses to verbal, tactile, or noxious stimuli. Per nursing -- patient does have gag and cough. I did have a significant conversation with patient's brother and [id number] yesterday evening regarding the patient's critical status. I explained to them what was presently known about his case, and that he is currently requiring mechanical ventilation. I also mentioned to them that during a prior hospitalist admission, Foster had noted that he was full code. As patient does not have any living significant other, power of deputy commonwealth's attorney, children, I did inquire about what theyas familybelieve that Foster would want in the case of a medical decline, such as his heart stopping. They were unsure at that time. I advised him to discuss with good family friend who was present in the ER and to call back later in the evening. They did have an opportunity to speak with Abrahan Fuentes PA-C, yesterday evening -- please see his note for full detials. They noted that they do not believe that Foster would want CPR in the case of further medical decline and that he would not want to be in a vegetative state. They are coming up from [place] today to see Foster (patient) Review of Systems Review of Systems: Unobtainable due to endotracheal tube and Unobtainable due to reduced consciousness Physical Exam Physical Exam: General: 65-year-old gentleman who is obtunded on MV. On my initial exam, he is not responsive to verbal, tactile, or noxious stimuli. No obvious posturing. HEENT: NCAT. Eyes - Sclera are white, anicteric, and without injection. Mouth - MMM with no tonsillar edema or exudates. Cardiac: Normal rate with irregular rhythm; S1 and S2 present with no murmurs, rubs, or gallops. Pulmonary: Mechanically ventilated. Lungs were clear to auscultation bilaterally with no crackles or wheezes. Abdominal: Normoactive bowel sounds. Abdomen was mildly distended to palpation. Extremities: Upper and lower extremities are warm and well perfused. Capillary r efill assessed in UE was approx. 2 seconds Neuro: - II - pupils midline at the time of my exam, PERRL. III: Corneal reflexes weak. Oculo-cephalic reflex negative. - Motor: UE - soft-restraints in place at time of my exam. Flaccid paralysis of upper extremities b/l. - Sensation: Not responsive to painful stimuli on my initial exam - Reflexes - Biceps reflexes 1+ bilaterally, patellar reflexes 1+ bilaterally. Results & Data Results & Data ([facility]) Vital Signs (Past 12 Hours) Vital Signs Temp Pulse Pulse Resp BP BP Pulse Ox 09/29/20 07:59 37.0 C 73 92/55 L 96 09/29/20 07:29 36.9 C 72 104/63 99 09/29/20 07:21 69 18 100 09/29/20 06:00 37 C 65 18 101/51 L 95 09/29/20 05:00 37 C 68 18 96/51 L 97 09/29/20 04:50 64 19 97 09/29/20 04:00 37 C 73 18 97/56 L 99 09/29/20 03:00 37 C 74 18 80/45 L 94 09/29/20 02:00 37.4 C 71 18 108/60 99 09/29/20 01:00 37 C 68 18 94/51 L 97 09/29/20 00:11 83 22 94 09/29/20 00:00 37.4 C 82 71 18 140/90 99 09/28/20 23:58 78 15 09/28/20 23:00 37 C 61 18 95/47 L 98 09/28/20 22:25 37.3 C 74 93/52 L 09/28/20 22:00 37.4 C 71 18 90/51 L 98 09/28/20 21:26 37.4 C 67 18 98/64 L 95 Resident Activity Tracking Resident Involvement: Resident Care Provided Care Provided: Adult Hospital Medicine (1) Septic prepatellar bursitis Laterality: right Qualified Code(s): M71.161 - Other infective bursitis, right knee
--- NOTE | 2020-09-29 09:32 | Billing Data ---
Date of Service September 29, 2020 Coding Level of Care Code Critical Care 1st 30-74 mins
--- NOTE | 2020-09-29 09:35 | Neurology Consultation ---
Date of Consultation September 29, 2020 Assessment & Plan (1) Acute encephalopathy: Persistent severe encephalopathy potentially related to prolonged profound hypoglycemia. No improvement with administration of IV glucose. No evidence of acute or subacute stroke on brain MRI. Does have rather extensive chronic small vessel ischemic disease. Has had some posturing movements although none this morning. No observed seizure activity or myoclonus. EEG to be completed this morning. Prognosis seems poor at this time. Continue supportive medical care. History of Present Illness Reason for Consultation: Change in mental status, unresponsive, anoxic CREDIT ASSESSMENT ANALYST injury? Requesting Physician: Abrahan Fuentes PA-C Attending Physician: Rush Garcia History of Present Illness The patient is a 65-year-old male who was found unresponsive on the floor of his home by a neighbor. EMS was summoned and the patient was found to have a blood sugar of around 20. He was observed to have some posturing as well. He did not improve with administration of intravenous glucose. Evaluation in the emergency department revealed acidosis, elevated creatine kinase. A CT of the head revealed advanced small vessel ischemic disease and was negative for hemorrhage or acute process. A brain MRI was negative for acute or subacute stroke. No evidence of hemorrhage. Moderately extensive age advanced chronic small vessel ischemic disease again observed. Past medical history notable for hypertension and paroxysmal atrial fibrillation for which she is prescribed rivaroxaban. An EEG has been ordered. Patient is not had any observed convulsive activity or myoclonic jerking. He does not have a known history of seizure disorder. Allergies Allergy/AdvReac Type Severity Reaction Status Date / Time No Known Allergies Allergy Verified 09/28/20 17:01 Home Medications Medication Instructions Recorded Confirmed Type metformin 500 mg tablet,extended 500 mg PO BID #60 tab 10/20/19 09/28/20 Rx release 24hr trazodone 50 mg tablet 50 mg PO HS PRN 07/16/20 09/28/20 History atorvastatin 40 mg tablet 40 mg PO QPM #30 tab 07/30/20 09/10/20 Rx insulin human U-100 NPH-regulr 20 unit SUBCUT BID #20 ml 07/30/20 09/28/20 Rx 70-30 mix 100 unit/mL subcutaneous susp (Novolin 70/30 U-100 Insulin) lisinopril 40 mg tablet 40 mg PO DAILY #30 tab 08/10/20 09/28/20 Rx levothyroxine 125 mcg tablet 125 mcg PO DAILY #30 tab 08/31/20 09/28/20 Rx rivaroxaban 20 mg tablet (Xarelto) 20 mg PO DAILY@1800 30 Days #30 tab 09/01/20 09/28/20 Rx atorvastatin 40 mg tablet 40 mg PO QPM 09/28/20 09/28/20 History metoprolol succinate 100 mg 50 mg PO DAILY 09/28/20 09/28/20 History tablet,extended release 24 hr Patient History Medical History Cough Diabetes History of alcoholism History of prostate cancer HTN (hypertension) Hyperlipidemia Hypothyroidism Insomnia Nausea Seborrheic dermatitis of scalp Sore throat Tobacco abuse Vitamin D deficiency Surgical History History of left knee surgery History of shoulder surgery Left Family History Mother Cancer Grandmother (Paternal) Stroke Grandfather (Paternal) Stroke Other Myocardial infarction Denies family history of Ovarian cancer Prostate cancer Breast cancer Colorectal cancer Social History Smoking Status: Unknown if ever smoked Second Hand Exposure: No; Do You Dip or Chew Tobacco: Yes; Preferred Language: Indian Communication Ability: Effective Back Tender Fourdrinier Required: No Beliefs That Will Affect Care: None marital status: Current Living Situation: Alone current occupational status: employed 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 Neurologic: Limited neurological examination as patient is on the ventilator. Propofol was held for this assessment. Patient does not respond to voice, tactile, or painful stimulation. Pupils are 3 mm, round, and reactive to light. There is no gaze preference or nystagmus. I am unable to elicit oculocephalic or blink reflexes at this time although he does have a gag reflex. Patient does not withdraw the limbs to noxious stimulation. He did not display any posturing movements for my assessment this morning. No myoclonic jerking of the limbs or other abnormal movements observed. Deep tendon reflexes diffusely diminished. Results & Data ([facility]) Vital Signs (Past 12 Hours) Vital Signs Temp Pulse Pulse Resp BP BP Pulse Ox 09/29/20 07:59 37.0 C 73 92/55 L 96 09/29/20 07:29 36.9 C 72 104/63 99 09/29/20 07:21 69 18 100 09/29/20 06:00 37 C 65 18 101/51 L 95 09/29/20 05:00 37 C 68 18 96/51 L 97 09/29/20 04:50 64 19 97 09/29/20 04:00 37 C 73 18 97/56 L 99 09/29/20 03:00 37 C 74 18 80/45 L 94 09/29/20 02:00 37.4 C 71 18 108/60 99 09/29/20 01:00 37 C 68 18 94/51 L 97 09/29/20 00:11 83 22 94 09/29/20 00:00 37.4 C 82 71 18 140/90 99 09/28/20 23:58 78 15 09/28/20 23:00 37 C 61 18 95/47 L 98 09/28/20 22:25 37.3 C 74 93/52 L 09/28/20 22:00 37.4 C 71 18 90/51 L 98 09/28/20 21:26 37.4 C 67 18 98/64 L 95 09/28/20 21:10 85 18 99 Laboratory Results WBC 8.90, hemoglobin 13.0, hematocrit 38.3, platelet count 180, sodium 138, potassium 3.2, BUN 16, creatinine 1.04, glucose 140, hemoglobin A1c 8.9, calcium 7.9, magnesium 1.6, AST 25, ALT 28, total CK 615, troponin less than 0.015, triglycerides 107, cholesterol 102, LDL 30, VLDL 21, HDL 51, TSH 2.320, toxicology screen unremarkable. Diagnostic Findings CT of the head and brain MRI are as described in the history of present illness. I reviewed the images as well as the radiologist's interpretation of these tests. An electrocardiogram reveals atrial fibrillation with rapid ventricular response, 103 bpm. An echocardiogram completed July 19, 2020 revealed mitral regurgitation, mild decline in systolic function, mild global hypokinesis of the left ventricle with mildly reduced left ventricular systolic function, ejection fraction 45 to 50%, moderate concentric left ventricular hypertrophy, left atrium moderately dilated, no interatrial septal defect. PG Care Time/CCT Total # of Minutes Spent Total Time Spent with Patient: Total time spent is greater than 50% in coordination of care (as documented) at patient's floor/unit and/or counseling patient: 70 minutes Coding Level of Care Code 32153 Initial Inpt Care Lvl 3 Diagnoses Acute encephalopathy G93.40
[2020-09-29] MEDS: INSULIN ASPART 100 UNITS/ML 3 ML PEN SC SCH ×4 (09:39→20:38)
--- NOTE | 2020-09-29 11:29 | Electroencephalogram ---
EEG Procedure Note Date of Service September 29, 2020 Start / End Times Start Time: 10:01 AM End Time: 10:21 AM Referring Physician Marcelo Madrid MD History Unresponsive Home Medication List Medication Instructions Recorded Confirmed Type metformin 500 mg tablet,extended 500 mg PO BID #60 tab 10/20/19 09/28/20 Rx release 24hr trazodone 50 mg tablet 50 mg PO HS PRN 07/16/20 09/28/20 History atorvastatin 40 mg tablet 40 mg PO QPM #30 tab 07/30/20 09/10/20 Rx insulin human U-100 NPH-regulr 20 unit SUBCUT BID #20 ml 07/30/20 09/28/20 Rx 70-30 mix 100 unit/mL subcutaneous susp (Novolin 70/30 U-100 Insulin) lisinopril 40 mg tablet 40 mg PO DAILY #30 tab 08/10/20 09/28/20 Rx levothyroxine 125 mcg tablet 125 mcg PO DAILY #30 tab 08/31/20 09/28/20 Rx rivaroxaban 20 mg tablet (Xarelto) 20 mg PO DAILY@1800 30 Days #30 tab 09/01/20 09/28/20 Rx atorvastatin 40 mg tablet 40 mg PO QPM 09/28/20 09/28/20 History metoprolol succinate 100 mg 50 mg PO DAILY 09/28/20 09/28/20 History tablet,extended release 24 hr Inpatient Medication List Atorvastatin Calcium (Atorvastatin 40 Mg Tab) 40 mg PO QPM [facility] Stop: 10/28/20 21:25 Last Admin: 09/28/20 23:47 Dose: Not Given Documented by: [id number] Propofol (Diprivan) 1,000 mg in 100 mls @ 6.48 mls/hr IV .[id number] [facility]; Protocol Stop: 10/01/20 16:59 Last Titration: 09/29/20 10:56 Dose: 10 mcg/kg/min, 6.5 mls/hr Documented by: [id number] Titration: 09/29/20 09:16 Dose: 25 mcg/kg/min, 16.2 mls/hr Documented by: [id number] Titration: 09/29/20 08:55 Dose: 0 mcg/kg/min, 0 mls/hr Documented by: [id number] Admin: 09/29/20 08:25 Dose: 50 mcg/kg/min, 32.4 mls/hr Documented by: [id number] Cosigned by: [id number] Titration: 09/29/20 08:25 Dose: 50 mcg/kg/min, 32.4 mls/hr Documented by: [id number] Cosigned by: [id number] Titration: 09/29/20 07:11 Dose: 50 mcg/kg/min, 32.4 mls/hr Documented by: [id number] Cosigned by: [id number] Admin: 09/29/20 05:27 Dose: 50 mcg/kg/min, 32.4 mls/hr Documented by: [id number] Cosigned by: [id number] Titration: 09/29/20 02:53 Dose: 50 mcg/kg/min, 32.4 mls/hr Documented by: [id number] Admin: 09/28/20 23:47 Dose: 50 mcg/kg/min, 32.4 mls/hr Documented by: [id number] Cosigned by: [id number] Titration: 09/28/20 21:49 Dose: 50 mcg/kg/min, 32.4 mls/hr Documented by: [id number] Cosigned by: [id number] Titration: 09/28/20 19:39 Dose: 50 mcg/kg/min, 32.4 mls/hr Documented by: [id number] Titration: 09/28/20 18:18 Dose: 25 mcg/kg/min, 16.2 mls/hr Documented by: [id number] Titration: 09/28/20 18:11 Dose: 20 mcg/kg/min, 13 mls/hr Documented by: [id number] Admin: 09/28/20 17:08 Dose: 10 mcg/kg/min, 6.5 mls/hr Documented by: [id number] Cosigned by: [id number] Insulin Aspart (Insulin Aspart 100 Units/Ml 3 Ml Pen) 0 units SC Q4 [facility]; Protocol Stop: 10/29/20 09:14 Last Admin: 09/29/20 09:39 Dose: 1 units Documented by: [id number] Cosigned by: [id number] Levothyroxine Sodium (Levothyroxine Sodium 125 Mcg Tablet) [facility] Stop: 10/29/20 06:29 Last Admin: 09/29/20 06:25 Dose: Not Given Documented by: [id number] Lisinopril (Lisinopril 40 Mg Tab) 40 mg PO DAILY [facility] Stop: 10/29/20 08:59 Last Admin: 09/29/20 08:26 Dose: Not Given Documented by: [id number] Metoprolol Succinate (Metoprolol Succ 50mg Ext Rel Tab) 50 mg PO DAILY [facility] Stop: 10/29/20 08:59 Last Admin: 09/29/20 08:26 Dose: Not Given Documented by: [id number] Discontinued Medications Dextrose (Dextrose 50% 50 Ml Syringe) Confirm Administered Dose 50 ml IV .STK- MED ONE Stop: 09/28/20 16:34 Last Admin: 09/28/20 17:16 Dose: Not Given Documented by: [id number] Dextrose (Dextrose 50% 50 Ml Syringe) 25 ml IV NOW ONE Stop: 09/28/20 16:52 Last Admin: 09/28/20 16:36 Dose: 25 ml Documented by: [id number] Fentanyl Citrate (Fentanyl Citrate 100 Mcg/2 Ml Vial) 200 mcg IV NOW STA Stop: 09/28/20 19:47 Last Admin: 09/28/20 19:52 Dose: 200 mcg Documented by: [id number] Levetiracetam 2,100 mg/ Sodium (Chloride) 271 mls @ 956.471 mls/hr IV NOW STA Stop: 09/28/20 17:08 Last Infusion: 09/28/20 17:25 Dose: 0 mls/hr Documented by: [id number] Admin: 09/28/20 17:08 Dose: 956.5 mls/hr Documented by: [id number] Sodium Chloride (Nss 1000ml) 500 mls @ 999 mls/hr IV .Q31M ONE Stop: 09/28/20 17:21 Last Infusion: 09/28/20 18:12 Dose: 0 mls/hr Documented by: [id number] Admin: 09/28/20 17:12 Dose: 999 mls/hr Documented by: [id number] Cefepime HCl (Maxipime) 2,000 mg in 20 mls @ 5 mls/min IV NOW STA; Protocol Stop: 09/28/20 16:56 Last Admin: 09/28/20 17:08 Dose: 5 mls/min Documented by: [id number] Sodium Chloride (Nss 1000ml) 1,000 mls @ 999 mls/hr IV .Q1H1M ONE Stop: 09/28/20 17:56 Last Infusion: 09/28/20 18:12 Dose: 0 mls/hr Documented by: [id number] Admin: 09/28/20 17:12 Dose: 999 mls/hr Documented by: [id number] Dextrose/Sodium Chloride (D5w And 1/2nss) 1,000 mls @ 100 mls/hr IV .Q10H STA Stop: 09/29/20 03:33 Last Infusion: 09/29/20 01:20 Dose: 0 mls/hr Documented by: [id number] Infusion: 09/29/20 01:06 Dose: 150 mls/hr Documented by: [id number] Infusion: 09/28/20 19:38 Dose: 150 mls/hr Documented by: [id number] Admin: 09/28/20 18:11 Dose: 100 mls/hr Documented by: [id number] Lorazepam (Ativan) 2 mg in 4 mls @ 4 mls/min IV NOW STA Stop: 09/28/20 18:27 Last Admin: 09/28/20 18:31 Dose: 4 mls/min Documented by: [id number] Dextrose/Sodium Chloride (D5w And 1/2nss) 1,000 mls @ 150 mls/hr IV .Q6H40M STA Stop: 09/29/20 02:24 Last Admin: 09/28/20 19:49 Dose: Not Given Documented by: [id number] Potassium Chloride (K Felipe / Wtr) 10 meq in 100 mls @ 100 mls/hr IV Q1H [facility] Stop: 09/29/20 10:59 Last Admin: 09/29/20 10:42 Dose: 100 mls/hr Documented by: [id number] Infusion: 09/29/20 10:33 Dose: 100 mls/hr Documented by: [id number] Admin: 09/29/20 09:33 Dose: 100 mls/hr Documented by: [id number] Infusion: 09/29/20 09:25 Dose: 100 mls/hr Documented by: [id number] Admin: 09/29/20 08:25 Dose: 100 mls/hr Documented by: [id number] Magnesium Sulfate/Dextrose (Magnesium Sulfate / D5w) 1 gm in 100 mls @ 50 mls/hr IV Q2H [facility] Stop: 09/29/20 10:59 Last Admin: 09/29/20 09:33 Dose: 50 mls/hr Documented by: [id number] Infusion: 09/29/20 09:33 Dose: 50 mls/hr Documented by: [id number] Admin: 09/29/20 08:25 Dose: 50 mls/hr Documented by: [id number] Insulin Aspart (Insulin Aspart 100 Units/Ml 3 Ml Pen) 0 units SC Q6 [facility] Stop: 10/29/20 05:59 Last Admin: 09/29/20 06:25 Dose: Not Given Documented by: [id number] Cosigned by: [id number] Insulin Glargine (Insulin Glargine Solostar 100 Units/Ml 3 Ml Pen) 18 units SC NOW ONE; Protocol Stop: 09/29/20 09:16 Last Admin: 09/29/20 09:40 Dose: 18 units Documented by: [id number] Cosigned by: [id number] Labetalol HCl (Labetalol Hcl Iv 5 Mg/Ml 20ml) Confirm Administered Dose 10 mg IV .STK-MED ONE Stop: 09/28/20 17:06 Last Admin: 09/28/20 17:13 Dose: Not Given Documented by: [id number] Labetalol HCl (Labetalol Hcl Iv 5 Mg/Ml 20ml) 10 mg IV NOW STA Stop: 09/28/20 17:06 Last Admin: 09/28/20 17:07 Dose: 10 mg Documented by: [id number] Cosigned by: [id number] Labetalol HCl (Labetalol Hcl Iv 5 Mg/Ml 20ml) 10 mg IV NOW STA Stop: 09/28/20 17:24 Last Admin: 09/28/20 17:24 Dose: 10 mg Documented by: [id number] Cosigned by: [id number] Labetalol HCl (Labetalol Hcl Iv 5 Mg/Ml 20ml) 10 mg IV NOW STA Stop: 09/28/20 18:09 Last Admin: 09/28/20 18:11 Dose: 10 mg Documented by: [id number] Cosigned by: [id number] Miscellaneous (Rapid Sequence Induction Bag) Confirm Administered Dose 1 ea .ROUTE .STK-MED ONE Stop: 09/28/20 16:34 Last Admin: 09/28/20 17:13 Dose: Not Given Documented by: [id number] Propofol (Propofol Iv Emulsion 10 Mg/Ml 100 Ml Vial) Confirm Administered Dose 1,000 mg IV .STK-MED ONE Stop: 09/28/20 16:47 Last Admin: 09/28/20 17:13 Dose: Not Given Documented by: [id number] Description This is a 21 electrode EEG with a single channel dedicated to limited EKG. The electrodes were placed in accordance with the International 10-20 system. Study was done in the ICU with the patient on the ventilator. The background rhythm consists of a mix of poorly organized alpha and theta frequencies ranging from 5 to 9 Hz. There is a symmetric frontal beta rhythm. Photic stimulation unremarkable. Hyperventilation not performed. There is no focal or lateralized slowing. No epileptiform abnormalities observed. Interpretation Abnormal awake/drowsy EEG suggestive of encephalopathy of at least moderate severity. No evidence of subclinical seizures. [facility] EEG Procedure Codes Indication for Procedure (1) Acute encephalopathy: Neurology Neurology: 90500 EEG include record awake & drowsy
[2020-09-29 11:45] LABS: iSTAT Allen Test Pass; iSTAT Arterial Blood Gas HCO3 28 meg/L (19-24); iSTAT Arterial Blood Gas pCO2 43 mmHg (35-46); iSTAT Arterial Blood Gas pH 7.43 (7.35-7.45); iSTAT Arterial Blood Gas pO2 85 mmHg (80-95); iSTAT Carbon Dioxide 29 mmol/L (24-31); iSTAT FiO2 30 %; iSTAT Site R Radial
--- NOTE | 2020-09-29 13:10 | XCELERA ---
[id number]_[id number]
[2020-09-29] MEDS: FAMOTIDINE 20 MG in SYRINGE 3 ML IV SCH ×2 (13:33→20:40)
--- NOTE | 2020-09-29 13:49 | Pharmacy Report ---
Pharmacy Glycemic Short Note 2 - Date of Service September 29, 2020 - Glycemic Short BSG Results (Last 24 hours): 09/28/20 09/28/20 09/28/20 16:36 16:43 16:58 Glucose POC Glucose 61 L* 113 H 126 H POC Glucose (other) 09/28/20 09/28/20 09/28/20 16:59 17:05 17:34 Glucose 133 H POC Glucose 96 POC Glucose (other) 138 H 09/28/20 09/28/20 09/28/20 18:21 18:59 19:33 Glucose POC Glucose 77 81 72 POC Glucose (other) 09/28/20 09/29/20 09/29/20 20:11 04:38 08:22 Glucose 140 H POC Glucose 79 167 H POC Glucose (other) 09/29/20 12:04 Glucose POC Glucose 205 H POC Glucose (other) OUTPATIENT ANTIDIABETIC REGIMEN: * Patient unresponsive and not able to confirm the following: * Novolin 70/30, 20 units BID * Metformin * Patient has been found many times in driveway/yard hypoglycemic from too much insulin ASSESSMENT: * 65 yo M with T2DM admitted 09/28 after being found unresponsive at home with BSG's in the 's. Patient was last known well 09/27 PM therefore duration and extent of hypoglycemia may have been profound. * Ongoing encephalopathy now that BSG's have been corrected - concern for significant cerebral damage from hypoglycemia * Avoidance of repeat hypoglycemia important - mild hyperglycemia reasonable at this time as it is preferable to unintentional repeat hypoglycemia, until current inpatient needs can be better determined * AM BSG now 167 mg/dL after all insulin was held yesterday. Will initiate low- dose Lantus and Novolog q4h PLAN FOR INPATIENT GLYCEMIC CONTROL: * Hold outpatient oral diabetes medications * Basal insulin * Lantus 18 units SQ x1 now. Additional 0-10 units tonight based on BSG * Bolus insulin * NovoLog per scale q4h * Goal Range: 120-160 mg/dL * Correction Factor: 25 mg/dL/unit * Nutritional / Prandial insulin per carb ratio of 1 unit per 8 grams CHO consumed Outpatient recommendations * special educator involvement will be essential if/when patient is alert and oriented enough to discuss outpatient regimen
--- NOTE | 2020-09-29 17:00 | Electrocardiogram Report ---
Test Reason : Blood Pressure : / mmHG Vent. Rate : 103 BPM Atrial Rate : 104 BPM P-R Int : 000 ms QRS Dur : 136 ms QT Int : 408 ms P-R-T Axes : 000 -10 010 degrees QTc Int : 534 ms Atrial fibrillation with rapid ventricular response Right bundle branch block Abnormal ECG When compared with ECG of 16-JUL-2020 19:21, No significant change was found Confirmed by Jeremy Nguyen ([id number] on 09/29/2020 5:00:27 PM Referred By: REFERRED SELF Confirmed By:Donald Nguyen
[2020-09-29] MEDS ORDERED: PEPTAMEN INTENSE VHP 1.0 CAL 1,000 ML BAG OG PRN (19:10)
[2020-09-29] MEDS: ATORVASTATIN 40 MG TAB PO SCH (20:39)
--- NOTE | 2020-09-29 21:59 | Hospitalist Progress Note ---
Date of Service September 29, 2020 Assessment & Plan (1) Unresponsive episode: Plan: (1) Unresponsive episode: Patient found to be unresponsive and was intubated for airway protection. Patient will be admitted to the ICU. Appreciate input from Chief Operator Reformer: It appears patient may have suffered cerebral damage from prolonged hypoglycemia Patient appears to have suffered from prolonged hypoglycemia. Family will be coming from [place]. (2) Hypertension: will resume metoprolol (3) HTN (hypertension): (4) Paroxysmal A-fib: (5) Hyperlipidemia: resume home meds (6) Hypothyroidism: resume home meds (2) Hypertension: (3) Paroxysmal A-fib: (4) Hyperlipidemia: (5) Hypothyroidism: Admission and Anticipated Discharge Date Admission Date: September 28, 2020 Subjective Patient is intubated. Review of Systems Review of Systems: Unobtainable due to endotracheal tube Physical Exam Physical Exam: General: 65-year-old gentleman that is intubated, he is not responsive to verbal, tactile, or noxious stimuli. HEENT: NCAT. Cardiac:normal rate with irregular rhythm; S1 and S2 present with no murmurs, rubs, or gallops. Pulmonary: Mechanically ventilated. Lungs were clear to auscultation bilaterally with no crackles or wheezes. Abdominal: Normoactive bowel sounds. Abdomen was mildly distended to palpation. Extremities: Upper and lower extremities are warm and well perfused. Results & Data Results & Data ([facility]) Vital Signs (Past 12 Hours) Vital Signs Temp Pulse Pulse Resp BP BP Pulse Ox 09/29/20 21:00 37.9 C H 63 107/73 99 09/29/20 20:33 68 25 H 100 09/29/20 16:29 37.9 C H 61 134/79 98 09/29/20 15:29 37.8 C H 65 131/76 99 09/29/20 15:26 71 26 H 98 09/29/20 14:59 37.8 C H 61 132/74 94 09/29/20 14:29 37.8 C H 69 155/89 H 100 09/29/20 13:59 37.7 C H 67 132/74 99 09/29/20 13:29 37.6 C H 64 134/81 100 09/29/20 12:29 37.5 C 60 163/98 H 99 09/29/20 11:59 37.4 C 82 133/81 99 09/29/20 11:29 37.3 C 62 132/79 99 09/29/20 11:15 66 17 98 09/29/20 10:59 37.3 C 67 134/78 98 09/29/20 10:29 37.3 C 68 112/68 99 PG Care Time/CCT Total # of Minutes Spent Total Time Spent with Patient: Total time spent is greater than 50% in coordination of care (as documented) at patient's floor/unit and/or counseling patient: Coding Level of Care Code 87030 Subseq Hosp Care Lvl 2 Diagnoses Unresponsive episode R41.89 Hypertension I10 Hypertension type: unspecified Paroxysmal A-fib I48.0 Hyperlipidemia E78.5 Hypothyroidism E03.9 (1) Hypertension Hypertension type: unspecified Qualified Code(s): I10 - Essential (primary) hypertension
[2020-09-30] MEDS: INSULIN ASPART 100 UNITS/ML 3 ML PEN SC SCH ×7 (00:34→23:27)
[2020-09-30 05:00] LABS: iSTAT Allen Test Pass; iSTAT Art Bld Gas pCO2 Correct 42 mmHg (35-46); iSTAT Art Bld Gas pH Corrected 7.469 (7.35-7.45); iSTAT Arterial Blood Gas HCO3 30 meg/L (19-24); iSTAT Arterial Blood Gas pCO2 41 mmHg (35-46); iSTAT Arterial Blood Gas pH 7.48 (7.35-7.45); iSTAT Arterial Blood Gas pO2 136 mmHg (80-95); iSTAT Arterial Blood Gas pO2 C 139; iSTAT Carbon Dioxide 31 mmol/L (24-31); iSTAT FiO2 30 %; iSTAT Hematocrit 38 % (42-52); iSTAT Hemoglobin 12.9 g/dl (14.0-18.0); iSTAT Potassium 3.5 mmol/L (3.3-5.0); iSTAT Site L Radial; iSTAT Sodium 140 mmol/L (135-144)
[2020-09-30 05:28] LABS: Basophils # (auto) 0.02 K/uL (0-0.2); Basophils % (auto) 0.2 %; Eosinophils # (auto) 0.19 K/uL (0-0.5); Eosinophils % (auto) 2.1 %; Hematocrit (blood only) 40.4 % (42-52); Hemoglobin 13.7 g/dL (14.0-18.0); Immature Granulocytes # (auto) 0.01 K/uL (0.00-0.02); Immature Granulocytes % (auto) 0.1 %; Lymphocytes # (auto) 1.69 K/uL (1.2-3.4); Lymphocytes % (auto) 18.9 %; Mean Corpuscular Hemoglobin 29.9 pg (25-34); Mean Corpuscular Hgb Conc 33.9 g/dL (32-36); Mean Corpuscular Volume 88.2 fL (80-100); Mean Platelet Volume 8.8 fL (7.4-10.4); Monocytes % (auto) 10.1 %; Neutrophils # (auto) 6.14 K/uL (1.4-6.5); Neutrophils % (auto) 68.6 %; Platelet Count 158 K/uL (130-400); RDW Coefficient of Variation 13.4 % (11.5-14.5); RDW Standard Deviation 43.3 fL (36.4-46.3); Red Blood Count 4.58 M/uL (4.7-6.1); White Blood Count 8.95 K/uL (4.8-10.8)
[2020-09-30 05:51] LABS: Albumin Level 3.1 gm/dl (3.4-5.0); BUN Creatinine Ratio 17.7 (10-20); Bilirubin Direct 0.3 mg/dl (0-0.2); Calcium 8.4 mg/dl (8.5-10.1); Creatinine Clr Calc Pharmacy 102.9 ml/min; Est GFR (African American) 100.8 ml/min; Magnesium 2.1 mg/dl (1.8-2.4); Potassium 3.6 mmol/L (3.5-5.1)
[2020-09-30] MEDS: LEVOTHYROXINE SODIUM 125 MCG TABLET PO SCH (05:59)
--- NOTE | 2020-09-30 06:04 | Critical Care Progress Note ---
Date of Service September 30, 2020 Assessment & Plan (1) HTN (hypertension): Plan: Reason Critically Ill: Lars ("Foster"Fede Kumar is a 65-year-old gentleman with a notable past medical history of type 2 diabetes, hyperlipidemia, atrial fibrillation on Xarelto and Toprol, hypertension, and history of right knee prepatellar bursitis who presented to [facility] by ambulance after being found unresponsive and profoundly hypoglycemic at home. En route to [facility] and in the ED, he was found to have right eye deviation and decorticate posturing. Although HPI is quite limited, current thought is that this patient suffered from prolonged, profound hypoglycemia that has resulted in cerebral defects VS. an acute stroke (especially in setting of AF, questionable medication compliance). He requires ICU level care for management of his mechanical ventilation and for hemodynamic monitoring. Neuro - CAM-ICU: Unobtainable due to unresponsiveness Sedation: Propofol in setting of mechanical ventilation Analgesia: None at present. Acute Encephalopathy / Unresponsiveness * Remains obtunded. Brainstem reflexes partially intact. R eye deviation and LUE spasticity initially observed are no longer present -- globally flaccid at present * Suspect that this represents ongoing encephalopathy and cerebral damage from prolonged, profound hypoglycemia at present -- especially considering he was found with BSG 20 on EMS arrival (and known hx that patient has had several instances where he has taken too much insulin and has been found unconscious), but failure to improve after IV glucose administration. -- CVA initially considered, but seems less likely at this time given relatively normal nCT, MRI * Patient with known history of AF (on Xarelto, Toprol), HTN, ID-DM2 -- initial question of medication compliance, good pt friend says she thinks he was reliable * TTE: Normal biventricular function, moderate LVH, no interatrial shunt. * EEG: Moderate encephalopathic changes, no epileptiform activity * ECG/Tele: Continues to be in rate-controled AFib * Otherwise: no major lyte abnormalities, no major blood gas abnormalities, no leukocytosis, normalized lactate, negative procalc. No obvious source of infection on exam -- BCX - NGTD -- LP cannot be performed until >72 hours from last Xarelto dose by current guidelines, will continue to consider * Neurology following Patient's brother and [id number] are coming up from [place] to see Foster. They have requested that in the case of cardiovascular collapse, intensive resuscitation methods (like CPR) not be performed. Please see Abrahan Fuentes PA-C, note from 09/28 regarding this discussion. Overall, prognosis at present seems guarded Cardiac - Atrial Fibrillation * Upon arrival, patient was found to be hypertensive in AF w/ RVR - s/p multiple doses of labetalol with adequate control of rate * Transition Toprol --> Lopressor * Hold Xarelto Respiratory - VDRF * Intubated secondary to AMS and concern for airway protection * Will decrease RR to evaluate for spontaneous breathing * Propofol prn for sedation * No known h/o respiratory disease otherwise GI - * Continue tube feeds - appreciate nutrition and bird tender insight RENAL/LYTES - * No significant electrolyte abnormalities * Maintain K > 4, Mg > 2, Phos > 3 * No ANNA on labs - * Cook ENDO - Hypoglycemia, History of T2DM - A1c 8.9% * Patient with known history of T2DM on metformin, Relion * Patient found with BSG 20 on EMS arrival - following glucose administration, has returned up to ~100s without significant change * With reported history (by friend) of several episodes of unresponsiveness in the past from taking too much insulin * Glycemic consult, hold home meds - Lantus, SSI Hypothyroid * Synthroid * TSH normal HEME - * Stable H&H at present * Continue to monitor ID - * see above -- metabolic encephalopathy INTEGUMENTARY - * No acute concerns LINES/IV ACCESS - PIVs intact. DVT PROPHYLAXIS - SCDs GI PPX - IV Famotidine Thank you for allowing us to be part of this patient's care. Please refer to Dr. Garcia's documentation for any further recommendations. (2) Paroxysmal A-fib: (3) Diabetes: (4) Cardiomyopathy: (5) Insomnia: (6) Seborrheic dermatitis of scalp: (7) Hyperlipidemia: (8) Hypothyroidism: (9) History of alcoholism: (10) Tobacco abuse: (11) Septic prepatellar bursitis: (12) Screening PSA (prostate specific antigen): (13) Obesity, diabetes, and hypertension syndrome: (14) Hypoglycemia: Admission and Anticipated Discharge Date Admission Date: September 28, 2020 Supervising Physician Co-Signing Physician Notes Dr. Madrid was resident physician during care of patient. I separately evaluated patient for sanders portions of the history and the exam. I was present during the critical portion of medical decision making, and I discussed the case with the resident. I generally agree with the findings and plan. Awaiting family discussion to decide if there would be a need for reintubation likely will attempt liberation from ventilator today advocating for PEG tube and SNF placement I suspect there is dense prolonged encephalopathy secondary to profound prolonged hypoglycemia given the patient's history of frequent hypoglycemic events and being found multiple times altered secondary to hy poglycemia. Work-up has remained largely negative. Subjective No acute events overnight. Per nighttime, no major changes with ventilationpatient continues to mildly breathe over the vent. No other changes. Urine output stable. Review of Systems Review of Systems: Unobtainable due to endotracheal tube and Unobtainable due to reduced consciousness Physical Exam Physical Exam: General: 65-year-old gentleman who is obtunded on MV. On my initial exam, he is not responsive to verbal, tactile, or noxious stimuli. No obvious posturing. HEENT: NCAT. Eyes - Sclera are white, anicteric, and without injection. Mouth - MMM with no tonsillar edema or exudates. Cardiac: Normal rate with irregular rhythm; S1 and S2 present with no murmurs, rubs, or gallops. Pulmonary: Mechanically ventilated. Lungs were clear to auscultation bilaterally with no crackles or wheezes. Abdominal: Normoactive bowel sounds. Abdomen was mildly distended to palpation - unchanged from yesterday. : Cook in place. Extremities: Upper and lower extremities are warm and well perfused. Capillary refill assessed in UE was approx. 3 seconds Neuro: - II - pupils midline at the time of my exam, PERRL. III: Corneal reflexes still weak. Oculo-cephalic reflex negative. - Motor: UE - soft-restraints in place at time of my exam. Flaccid paralysis of upper extremities b/l - unchanged. - Sensation: Not responsive to painful stimuli on my initial exam - Reflexes - Peripheral UE/LE reflexes minimal. Babinski appears to be mildly upgoing in L foot. Results & Data Results & Data ([facility]) Vital Signs (Past 12 Hours) Vital Signs Temp Pulse Pulse Resp BP BP Pulse Ox 09/30/20 04:59 37.5 C 72 142/84 H 99 09/30/20 04:29 37.5 C 71 131/85 99 09/30/20 03:59 37.5 C 66 129/71 98 09/30/20 03:29 37.5 C 65 132/77 99 09/30/20 02:59 37.6 C H 72 112/64 97 09/30/20 02:29 37.9 C H 71 104/61 96 09/30/20 01:45 38.0 C H 74 95 09/30/20 01:31 38.0 C H 99 09/30/20 00:59 37.9 C H 67 136/81 96 09/30/20 00:29 37.7 C H 69 151/96 H 98 09/30/20 00:07 66 16 96 09/29/20 23:29 37.8 C H 67 95/58 L 92 09/29/20 22:29 37.9 C H 81 153/101 H 100 09/29/20 22:00 37.9 C H 63 18 135/75 97 09/29/20 21:29 38.0 C H 63 107/73 98 09/29/20 21:00 37.9 C H 63 107/73 99 09/29/20 20:33 68 25 H 100 09/29/20 20:29 37.9 C H 72 140/82 97 09/29/20 19:29 38.2 C H 65 127/72 98 Critical Care Time I have personally spent 40 minutes of critical care time in the direct management of this patient. This is a life/limb threatening event. This includes time spent evaluating patient, direct bedside care, chart review, placing orders, interpretation of diagnostic studies, discussion with consultants, patient, and/or family members regarding treatment decisions, as well as other required patient management activities. This time is exclusive of all separately billable procedures, and teaching time and separate from and in addition to any other critical care service time. Resident Activity Tracking Resident Involvement: Resident Care Provided Care Provided: Adult Hospital Medicine (1) Septic prepatellar bursitis Laterality: right Qualified Code(s): M71.161 - Other infective bursitis, right knee
[2020-09-30 06:05] LABS: Bilirubin,Total 1.2 mg/dl (0.2-1); Phosphorus 3.7 mg/dl (2.5-4.9); Total Protein 6.7 gm/dl (6.4-8.2)
--- NOTE | 2020-09-30 07:45 | XRay Report ---
XR chest 1V portable CLINICAL HISTORY: Respiratory failure COMPARISON STUDY: 09/29/2020 FINDINGS: The heart remains enlarged. There is an endotracheal tube positioned 42 mm above the josh . There is an enteric tube which passes into the stomach. There is a small left pleural effusion with associated left basilar airspace opacities.[Opacities the right medial lung base remain unchanged an d are likely atelectatic. IMPRESSION: 1. Suspected small left pleural effusion with associated left basilar atelectasis/consolidation. ACT 112: Negative or not required by law. Electronically signed by: Elkin Molina M.D. 09/30/2020 7:44 AM
[2020-09-30] MEDS: propofoL 1,000 MG/100 ML VIAL IV SCH ×4 (08:10→19:27)
[2020-09-30] MEDS: lisinopril 40 MG TAB PO SCH (08:11)
[2020-09-30] MEDS: METOPROLOL SUCC 50MG EXT REL TAB PO SCH (08:11)
[2020-09-30] MEDS: INSULIN GLARGINE SOLOSTAR 100 UNITS/ML 3 ML PEN SC SCH (08:12)
[2020-09-30] MEDS: FAMOTIDINE 20 MG in SYRINGE 3 ML IV SCH ×2 (08:15→21:02)
--- NOTE | 2020-09-30 09:51 | Neurology Progress Note ---
Date of Service September 30, 2020 Assessment & Plan (1) Acute encephalopathy: Plan: Persistent unresponsiveness/encephalopathy in the context of prolonged, profound hypoglycemia with probable significant associated brain injury. No evidence of hemorrhage or acute stroke on CT of the head and brain MRI. No evidence of subclinical seizure activity on EEG. No significant change in patient's neurological examination. Prognosis poor. Discussed my clinical impression with patient's family at bedside this morning. Continue medical management per critical care and hospitalist team. Admission and Anticipated Discharge Date Admission Date: September 28, 2020 Subjective Follow-up for encephalopathy/unresponsiveness No significant change in patient's neurologic status. He remains unresponsive on the ventilator in the ICU. He will grimace and withdraw slightly to noxious stimulation. Otherwise, no purposeful responses have been observed. No seizure-like activity or myoclonic movements of the limbs have been observed. An EEG completed yesterday revealed changes consistent with encephalopathy. A brain MRI completed 2 days ago was negative for acute or subacute stroke. The study did reveal moderately extensive age advanced white matter disease likely due to chronic small vessel ischemic change. Case discussed with patient's family at bedside this morning. Persistent unresponsiveness/encephalopathy felt to be related to prolonged, profound hypoglycemia with significant associated brain injury. Prognosis poor. Review of Systems Review of Systems: Unobtainable due to reduced consciousness Results & Data ([facility]) Vital Signs (Past 12 Hours) Vital Signs Temp Pulse Pulse Resp BP BP Pulse Ox 09/30/20 07:07 67 17 99 09/30/20 04:59 37.5 C 72 142/84 H 99 09/30/20 04:44 102 H 19 100 09/30/20 04:29 37.5 C 71 131/85 99 09/30/20 03:59 37.5 C 66 129/71 98 09/30/20 03:29 37.5 C 65 132/77 99 09/30/20 02:59 37.6 C H 72 112/64 97 09/30/20 02:29 37.9 C H 71 104/61 96 09/30/20 01:45 38.0 C H 74 95 09/30/20 01:31 38.0 C H 99 09/30/20 00:59 37.9 C H 67 136/81 96 09/30/20 00:29 37.7 C H 69 151/96 H 98 09/30/20 00:07 66 16 96 09/29/20 23:29 37.8 C H 67 95/58 L 92 09/29/20 22:29 37.9 C H 81 153/101 H 100 09/29/20 22:00 37.9 C H 63 18 135/75 97 Exam (Neuro) Constitutional: + mechanically ventilated Neurologic: Details: Patient remains unresponsive. Pupils 3 mm, round, minimally reactive. Oculocephalic reflex is intact. Unable to elicit blink reflexes this morning. No posturing observed. Minimal withdrawal of the limbs noted to noxious stimulation. No tremors or myoclonic movements. Coding Level of Care Code 98256 Subseq Hosp Care Lvl 2 Diagnoses Acute encephalopathy G93.40
--- NOTE | 2020-09-30 09:52 | Billing Data ---
Date of Service September 30, 2020 Coding Level of Care Code Critical Care 1st -74 mins
--- NOTE | 2020-09-30 13:16 | Pharmacy Report ---
Pharmacy Glycemic Short Note 2 - Date of Service September 30, 2020 - Glycemic Short BSG Results (Last 24 hours): 09/29/20 09/29/20 09/30/20 15:50 20:32 00:27 Glucose POC Glucose 196 H 102 H 164 H 09/30/20 09/30/20 09/30/20 05:19 08:17 11:52 Glucose 162 H POC Glucose 187 H 176 H OUTPATIENT ANTIDIABETIC REGIMEN: * Patient unresponsive and not able to confirm the following: * Novolin 70/30, 20 units BID * Metformin * Patient has been found many times in driveway/yard hypoglycemic from too much insulin ASSESSMENT: 09/30 * BSGs well controlled over last 24 hours * BSGs in the 160-180s range this AM with Peptamen VHP running at 30cc/hr * Will continue same dose of Lantus at this time. * Will follow BSG pattern with use of Novolog CF/CR as TF titrated to goal. 09/29 * 65 yo M with T2DM admitted 09/28 after being found unresponsive at home with BSG's in the 20's. Patient was last known well 7 PM therefore duration and extent of hypoglycemia may have been profound. * Ongoing encephalopathy now that BSG's have been corrected - concern for significant cerebral damage from hypoglycemia * Avoidance of repeat hypoglycemia important - mild hyperglycemia reasonable at this time as it is preferable to unintentional repeat hypoglycemia, until current inpatient needs can be better determined * AM BSG now 167 mg/dL after all insulin was held yesterday. Will initiate low- dose Lantus and Novolog q4h PLAN FOR INPATIENT GLYCEMIC CONTROL: * Hold outpatient oral diabetes medications (metformin) * Basal insulin * Lantus 18 units SQ Q AM. * Bolus insulin * NovoLog per scale q4h * Goal Range: 110-140 mg/dL * Correction Factor: 30 mg/dL/unit * Nutritional / Prandial insulin per carb ratio of 1 unit per 10 grams CHO consumed Outpatient recommendations * telehealth nurse educator involvement will be essential if/when patient is alert and oriented enough to discuss outpatient regimen
[2020-09-30] MEDS: TUBE FEEDING WATER FLUSH GT SCH ×3 (17:03→23:27)
--- NOTE | 2020-09-30 17:46 | XRay Report ---
KUB HISTORY: feeding tube placement COMPARISON: None. FINDINGS: The feeding tube is curled within the proximal stomach. A few mildly dilated gas-filled loo ps of small bowel within the upper abdomen. Left lower lobe linear densities favor subsegmental atele ctasis. No renal calculi. No ureteral calculi. No pneumoperitoneum or pneumatosis. IMPRESSION: The feeding tube is curled within the proximal stomach. ACT 112: Negative or not required by law. Electronically signed by: José Miguel Aldridge M.D. 09/30/2020 5:44 PM
[2020-09-30] MEDS: ATORVASTATIN 40 MG TAB PO SCH (20:58)
[2020-09-30] MEDS: METOPROLOL TARTRATE 25 MG TAB PO SCH (20:58)
--- NOTE | 2020-09-30 21:01 | Hospitalist Progress Note ---
Date of Service September 30, 2020 Assessment & Plan (1) Unresponsive episode: Plan: Patient found to be unresponsive and was intubated for airway protection. Patient will remain in the ICU. EEG showing encephalopathy. MRI negtaive for stroke. Patient remains unresponsive and this is likely from prolonged and severe hypoglycemia. Appreciate input from Compliance Representative Dealer: It appears patient may have suffered cerebral damage from prolonged hypoglycemia Poor prognosis. Family will be coming from [place]. (2) 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: Plan: As above. found hypoglycemic with level of BSG 20. (3) Hypertension: Plan: will resume metoprolol (4) Paroxysmal A-fib: (5) Hyperlipidemia: Plan: resume home meds (6) Hypothyroidism: Plan: resume home meds (7) Acute respiratory failure with hypoxemia: Plan: Patient with hypoglycemia and unresponsive is intubated and on ventilator support. SPO2 down to 88% on arrival. Unresponsive requiring ventilator support, hypoglycemia As above. Admission and Anticipated Discharge Date Admission Date: September 28, 2020 Subjective Patient remains unresponsive and intubated. Review of Systems Review of Systems: Unobtainable due to cognitive status Physical Exam Physical Exam: General: 65-year-old gentleman that is intubated, he is not responsive to verbal, tactile, or noxious stimuli. HEENT: NCAT. Cardiac:normal rate with irregular rhythm; S1 and S2 present with no murmurs, rubs, or gallops. Pulmonary: Mechanically ventilated. Lungs were clear to auscultation bilaterally with no crackles or wheezes. Abdominal: Normoactive bowel sounds. Abdomen was mildly distended to palpation. Extremities: Upper and lower extremities are warm and well perfused. Results & Data Results & Data ([facility]) Vital Signs (Past 12 Hours) Vital Signs Temp Pulse Resp BP Pulse Ox 09/30/20 16:59 38.0 C H 73 152/101 H 95 09/30/20 16:29 38.0 C H 65 153/98 H 98 09/30/20 15:31 59 L 17 98 09/30/20 15:30 37.9 C H 68 168/99 H 99 09/30/20 14:59 37.8 C H 65 140/84 99 09/30/20 14:00 37.8 C H 74 158/105 H 99 09/30/20 13:29 37.8 C H 65 125/82 98 09/30/20 12:59 37.8 C H 61 126/84 97 09/30/20 12:29 37.7 C H 64 139/84 99 09/30/20 11:59 37.6 C H 63 123/74 98 09/30/20 11:29 37.6 C H 70 121/77 99 09/30/20 10:59 37.5 C 63 128/77 99 09/30/20 10:44 72 18 100 09/30/20 10:29 37.5 C 99 H 127/74 99 09/30/20 09:29 37.5 C 66 117/77 99 PG Care Time/CCT Total # of Minutes Spent Total Time Spent with Patient: Total time spent is greater than 50% in coordination of care (as documented) at patient's floor/unit and/or counseling patient: Coding Level of Care Code 77234 Subseq Hosp Care Lvl 2 Diagnoses Unresponsive episode R41.89 Hypertension I10 Hypertension type: unspecified Paroxysmal A-fib I48.0 Hyperlipidemia E78.5 Hypothyroidism E03.9 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 E11.641 Acute respiratory failure with hypoxemia J96.01 (1) Hypertension Hypertension type: unspecified Qualified Code(s): I10 - Essential (primary) hypertension
[2020-09-30] MEDS ORDERED: ACETAMINOPHEN 325 MG TAB PO PRN (23:09)
[2020-10-01] MEDS: TUBE FEEDING WATER FLUSH GT SCH ×5 (03:00→19:51)
[2020-10-01] MEDS: INSULIN ASPART 100 UNITS/ML 3 ML PEN SC SCH ×5 (04:03→20:51)
[2020-10-01 05:11] LABS: Basophils # (auto) 0.02 K/uL (0-0.2); Basophils % (auto) 0.3 %; Eosinophils # (auto) 0.19 K/uL (0-0.5); Eosinophils % (auto) 2.4 %; Hematocrit (blood only) 40.5 % (42-52); Hemoglobin 13.7 g/dL (14.0-18.0); Immature Granulocytes # (auto) 0.01 K/uL (0.00-0.02); Immature Granulocytes % (auto) 0.1 %; Lymphocytes # (auto) 1.84 K/uL (1.2-3.4); Lymphocytes % (auto) 23.6 %; Mean Corpuscular Hemoglobin 30.1 pg (25-34); Mean Corpuscular Hgb Conc 33.8 g/dL (32-36); Mean Platelet Volume 8.9 fL (7.4-10.4); Monocytes # (auto) 0.86 K/uL (0.11-0.59); Neutrophils # (auto) 4.89 K/uL (1.4-6.5); Neutrophils % (auto) 62.6 %; Platelet Count 167 K/uL (130-400); RDW Coefficient of Variation 12.7 % (11.5-14.5); RDW Standard Deviation 41.7 fL (36.4-46.3); Red Blood Count 4.55 M/uL (4.7-6.1); White Blood Count 7.81 K/uL (4.8-10.8)
[2020-10-01 05:34] LABS: BUN Creatinine Ratio 22.7 (10-20); Calcium 8.4 mg/dl (8.5-10.1); Creatinine Clr Calc Pharmacy 140.4 ml/min; Est GFR (African American) 116.2 ml/min; Est GFR (Non-African American) 100.2 ml/min; Potassium 3.5 mmol/L (3.5-5.1)
[2020-10-01] MEDS: LEVOTHYROXINE SODIUM 125 MCG TABLET PO SCH (06:35)
[2020-10-01] MEDS: FAMOTIDINE 20 MG in SYRINGE 3 ML IV SCH ×2 (09:12→21:24)
[2020-10-01] MEDS: INSULIN GLARGINE SOLOSTAR 100 UNITS/ML 3 ML PEN SC SCH (09:12)
[2020-10-01] MEDS: METOPROLOL TARTRATE 25 MG TAB PO SCH ×2 (09:13→21:24)
[2020-10-01] MEDS: lisinopril 40 MG TAB PO SCH (09:13)
--- NOTE | 2020-10-01 12:26 | Pharmacy Report ---
Pharmacy Glycemic Short Note 2 - Date of Service October 01, 2020 - Glycemic Short BSG Results (Last 24 hours): 09/30/20 09/30/20 09/30/20 16:53 20:58 23:26 Glucose POC Glucose 181 H 124 H 147 H 10/01/20 10/01/20 10/01/20 04:01 04:57 07:54 Glucose 163 H POC Glucose 159 H 157 H 10/01/20 11:52 Glucose POC Glucose 212 H OUTPATIENT ANTIDIABETIC REGIMEN: * Patient unresponsive and not able to confirm the following: * Novolin 70/30, 20 units BID * Metformin * Patient has been found many times in driveway/yard hypoglycemic from too much insulin ASSESSMENT: 10/01 * BSGs again failry well controlled * 32 units SQ insulin administered over last 24 hours * Patient was extubated yesterday * Tube feedings continue at this time (Peptamen VHP @50cc/hr with goal of 65cc/hr) * Will adjust Novolog CF/CR due to occasional mild hyperglycemia observed as TF titrated up 09/30 * BSGs well controlled over last 24 hours * BSGs in the 160-180s range this AM with Peptamen VHP running at 30cc/hr * Will continue same dose of Lantus at this time. * Will follow BSG pattern with use of Novolog CF/CR as TF titrated to goal. 09/29 * 65 yo M with T2DM admitted 09/28 after being found unresponsive at home with BSG's in the 20's. Patient was last known well 7/12 PM therefore duration and extent of hypoglycemia may have been profound. * Ongoing encephalopathy now that BSG's have been corrected - concern for significant cerebral damage from hypoglycemia * Avoidance of repeat hypoglycemia important - mild hyperglycemia reasonable at this time as it is preferable to unintentional repeat hypoglycemia, until current inpatient needs can be better determined * AM BSG now 167 mg/dL after all insulin was held yesterday. Will initiate low- dose Lantus and Novolog q4h PLAN FOR INPATIENT GLYCEMIC CONTROL: * Hold outpatient oral diabetes medications (metformin) * Basal insulin * Lantus 18 units SQ Q AM. * Bolus insulin * NovoLog per scale q4h * Goal Range: 110-140 mg/dL * Correction Factor: 25 mg/dL/unit * Nutritional / Prandial insulin per carb ratio of 1 unit per 8 grams CHO consumed Outpatient recommendations * director operations broadcast involvement will be essential if/when patient is alert and oriented enough to discuss outpatient regimen
--- NOTE | 2020-10-01 15:02 | Palliative Care Consultation ---
Date of Consultation October 01, 2020 Assessment & Plan (1) Acute encephalopathy: Improving, though it is uncertain how much he will improve and where his new baseline will be. (2) Palliative care encounter: I met with his friend, Guerline Quinteros, who has known him for 30 years. He does have family but is somewhat estranged from them. Though they are involved in decision making, they are generally deferring to Guerline, who is closest to him. Guerline has a good understanding of his current condition and realizes that with is diabetes and difficulty with compliance, he has potential for multiple complications. Since his admission, she and his family feel that he would not want chest compressions or defibrillation. He was intubated for airway protection at that time. He is subsequently extubated. She is uncertain about what he would say about goals for his care at this time as he is showing some improvement. She feels that he would not want to be completely dependent for care and unable to do things for himself. She tells me that the family has talked about artificial feeding and feels that he would likely not want halfway artificial feeding or PEG tube if his current status were his baseline. However, with some improvement it is not clear that dysphagia will be a permanent problem for him. Her preference would be to monitor him over the weekend to get a better sense of how much he will improve. She is agreeable to meeting with palliative care again on Sunday to discuss further, possibly with further speech evaluation if he continues to improve. (3) 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: (4) Acute respiratory failure with hypoxemia: History of Present Illness Reason for Consultation: goals of care Requesting Physician: Dr Garcia Attending Physician: Rush Garcia History of Present Illness 65 yo gentleman with diabetes who was found unresponsive and profoundly hypoglycemic with a blood sugar of 20. He was found at home by a friend who was concerned about him. His longtime friend, Guerline Quinteros, reports that he has not been particularly compliant with his diabetes medication and management. He was hospitalized in July with septic prepatellar bursitis and had a brief stay at [facility]. He had been living alone at home prior to admission. He has had persistent lethargy with moderate encephalopathy on EEG which is thought to be related to prolonged hypoglycemia. He is more alert today. He recognized his friend Guerline and is able to say that he has to move his bowels. However he has had significant psychomotor agitation. He did have speech evaluation two days ago and has NG tube for medications at this time. We have been consulted to assist with goals of care. Allergies Allergy/AdvReac Type Severity Reaction Status Date / Time No Known Allergies Allergy Verified 09/28/20 17:01 Home Medications Medication Instructions Recorded Confirmed Type metformin 500 mg tablet,extended 500 mg PO BID #60 tab 10/20/19 09/28/20 Rx release 24hr trazodone 50 mg tablet 50 mg PO HS PRN 07/16/20 09/28/20 History atorvastatin 40 mg tablet 40 mg PO QPM #30 tab 07/30/20 09/10/20 Rx insulin human U-100 NPH-regulr 20 unit SUBCUT BID #20 ml 07/30/20 09/28/20 Rx 70-30 mix 100 unit/mL subcutaneous susp (Novolin 70/30 U-100 Insulin) lisinopril 40 mg tablet 40 mg PO DAILY #30 tab 08/10/20 09/28/20 Rx levothyroxine 125 mcg tablet 125 mcg PO DAILY #30 tab 08/31/20 09/28/20 Rx rivaroxaban 20 mg tablet (Xarelto) 20 mg PO DAILY@1800 30 Days #30 tab 09/01/20 09/28/20 Rx atorvastatin 40 mg tablet 40 mg PO QPM 09/28/20 09/28/20 History metoprolol succinate 100 mg 50 mg PO DAILY 09/28/20 09/28/20 History tablet,extended release 24 hr Patient History Medical History Cough Diabetes History of alcoholism History of prostate cancer HTN (hypertension) Hyperlipidemia Hypothyroidism Insomnia Nausea Seborrheic dermatitis of scalp Sore throat Tobacco abuse Vitamin D deficiency Surgical History History of left knee surgery History of shoulder surgery Left Family History Mother Cancer Grandmother (Paternal) Stroke Grandfather (Paternal) Stroke Other Myocardial infarction Denies family history of Ovarian cancer Prostate cancer Breast cancer Colorectal cancer Social History Smoking Status: Unknown if ever smoked Second Hand Exposure: No; Do You Dip or Chew Tobacco: Yes; Preferred Language: Hungarian Communication Ability: Unable Head Soft Sugar Operator Required: No Beliefs That Will Affect Care: None marital status: Single Current Living Situation: Alone current occupational status: employed 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 Feels Safe at Home: Yes Childhood Exposure to Second-Hand Smoke: Yes caffeine: Yes (iced tea ) Dental Care, Regularly: No Physical Activity Frequency: 3-4 Times per Week Seatbelt Use: always Sunscreen Use: No Assistive Devices: Oxygen - Continuous Review of Systems Review of Systems: Unobtainable due to cognitive status Palliative Performance Score 30% Physical Exam Constitutional: + altered mental status; + uncooperative Respiratory: normal respiratory effort; no labored breathing Cardiovascular: Rate/Rhythm: regular rate and regular rhythm Musculoskeletal: Extremities: extremities normal to inspection Neurologic: moves all extremities Speech / Cognition: + abnormal cognition Genitourinary: Cook catheter Results & Data ([facility]) Vital Signs (Past 12 Hours) Vital Signs Temp Pulse BP Pulse Ox 10/01/20 08:02 99.1 F 78 171/124 H 93 10/01/20 08:00 77 10/01/20 07:02 99.1 F 68 158/104 H 95 10/01/20 06:02 99.3 F 67 162/90 H 97 10/01/20 05:02 99.5 F 60 163/94 H 98 10/01/20 04:02 99.5 F 64 153/100 H 97 10/01/20 03:02 99.7 F H 60 137/86 97 PG Care Time/CCT Total # of Minutes Spent Total Time Spent with Patient: Total time spent is greater than 50% in coordination of care (as documented) at patient's floor/unit and/or counseling patient: total time spent 75 minutes with more than 50% of time spent on goals of care, prognosis, family education Coding Level of Care Code 24539 Initial Inpt Care Lvl 3 Diagnoses Acute encephalopathy G93.40 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 E11.641 Acute respiratory failure with hypoxemia J96.01 Palliative care encounter Z51.5 Time Spent (min) 70
--- NOTE | 2020-10-01 20:40 | Hospitalist Progress Note ---
Date of Service October 01, 2020 Assessment & Plan (1) Unresponsive episode: Plan: Patient found to be unresponsive and was intubated for airway protection. Patient was extubated yesterday. Patient is awake and confused. Patient is having encephalopathy and delirium, patient is requiring restraints. will consult palliative care. EEG showing encephalopathy. MRI negtaive for stroke. Patient is now downgraded to TELE. Poor prognosis. Family will be coming from [place]. (2) 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: Plan: As above. found hypoglycemic with level of BSG 20. (3) Hypertension: Plan: will resume metoprolol (4) Paroxysmal A-fib: (5) Hyperlipidemia: Plan: resume home meds (6) Hypothyroidism: Plan: resume home meds (7) Acute respiratory failure with hypoxemia: Plan: Patient with hypoglycemia and unresponsive is intubated and on ventilator support. SPO2 down to 88% on arrival. Unresponsive requiring ventilator support, hypoglycemia As above. Admission and Anticipated Discharge Date Admission Date: September 28, 2020 Subjective Patient is awake but is confused. Review of Systems Review of Systems: Unobtainable due to cognitive status Physical Exam Physical Exam: General: 65-year-old gentleman that is extubated but is confused HEENT: NCAT. Cardiac:normal rate with irregular rhythm; S1 and S2 present with no murmurs, rubs, or gallops. Pulmonary: Mechanically ventilated. Lungs were clear to auscultation bilaterally with no crackles or wheezes. Abdominal: Normoactive bowel sounds. Abdomen was mildly distended to palpation. Extremities: Upper and lower extremities are warm and well perfused. Results & Data Results & Data ([facility]) Vital Signs (Past 12 Hours) Vital Signs Temp Pulse Pulse Resp BP BP Pulse Ox 10/01/20 20:00 73 10/01/20 19:35 37.3 C 72 20 163/107 H 97 10/01/20 15:35 36.9 C 67 18 166/83 H 93 PG Care Time/CCT Total # of Minutes Spent Total Time Spent with Patient: Total time spent is greater than 50% in coordination of care (as documented) at patient's floor/unit and/or counseling patient: Coding Level of Care Code 51952 Subseq Hosp Care Lvl 2 Diagnoses Unresponsive episode R41.89 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 E11.641 Hypertension I10 Hypertension type: unspecified Paroxysmal A-fib I48.0 Hyperlipidemia E78.5 Hypothyroidism E03.9 Acute respiratory failure with hypoxemia J96.01 Time Spent (min) 25 (1) Hypertension Hypertension type: unspecified Qualified Code(s): I10 - Essential (primary) hypertension
[2020-10-01] MEDS: QUEtiapine FUMARATE 25 MG TABLET PO SCH (21:23)
[2020-10-01] MEDS: ATORVASTATIN 40 MG TAB PO SCH (21:23)
[2020-10-01] MEDS ORDERED: LORazepam 1 MG/2 ML VIAL IV PRN (22:58)
[2020-10-02] MEDS: TUBE FEEDING WATER FLUSH GT SCH ×7 (00:01→22:30)
[2020-10-02] MEDS: INSULIN ASPART 100 UNITS/ML 3 ML PEN SC SCH ×6 (00:24→22:28)
[2020-10-02] MEDS: LEVOTHYROXINE SODIUM 125 MCG TABLET PO SCH (04:54)
[2020-10-02] MEDS: INSULIN GLARGINE SOLOSTAR 100 UNITS/ML 3 ML PEN SC SCH (08:37)
[2020-10-02] MEDS: lisinopril 40 MG TAB PO SCH (08:38)
[2020-10-02] MEDS: METOPROLOL TARTRATE 25 MG TAB PO SCH ×2 (08:38→21:20)
[2020-10-02] MEDS: QUEtiapine FUMARATE 25 MG TABLET PO SCH ×3 (08:39→21:21)
[2020-10-02] MEDS: FAMOTIDINE 20 MG in SYRINGE 3 ML IV SCH ×2 (08:46→22:53)
[2020-10-02] MEDS ORDERED: amLODIPine BESYLATE 5 MG TAB PO ONE (13:45)
[2020-10-02] MEDS: valACYclovir HCL 500 MG TABLET PO SCH ×2 (14:04→21:21)
[2020-10-02] MEDS: NICOTINE 21 MG/24 HR TDSY TD SCH (21:17)
[2020-10-02] MEDS: ATORVASTATIN 40 MG TAB PO SCH (21:18)
--- NOTE | 2020-10-02 23:06 | Hospitalist Progress Note ---
Date of Service October 02, 2020 Assessment & Plan (1) Unresponsive episode: Plan: Patient found to be unresponsive and was intubated for airway protection. Patient was extubated yesterday. Patient is awake and confused. Patient is having encephalopathy and delirium, patient is requiring restraints. will consult palliative care. EEG showing encephalopathy. MRI negative for stroke. Patient is now downgraded to TELE. Poor prognosis. Spoke to Guerline on the phone and updated her extensively. Patient has been more awake today and talking to nurse, will try to hold off further restaints as patient is able to be redirected. will continue 1 to 1. (2) 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: Plan: As above. found hypoglycemic with level of BSG 20. (3) Hypertension: Plan: will resume metoprolol (4) Paroxysmal A-fib: (5) Hyperlipidemia: Plan: resume home meds (6) Hypothyroidism: Plan: resume home meds (7) Acute respiratory failure with hypoxemia: Plan: Patient with hypoglycemia and unresponsive is intubated and on ventilator support. SPO2 down to 88% on arrival. Unresponsive requiring ventilator support, hypoglycemia As above. (8) Rash: Plan: eventhough it appears to be about 5 dermatomes, it still may be varicella, patient will be on isolation precautions. added valacyclovir, (9) Nicotine abuse: Plan: ordered nicotine patch Admission and Anticipated Discharge Date Admission Date: September 28, 2020 Subjective Patient remains confused. Review of Systems Review of Systems: Unobtainable due to cognitive status Physical Exam Physical Exam: General: 65-year-old gentleman that is extubated but is confused HEENT: NCAT. Cardiac:normal rate with irregular rhythm; S1 and S2 present with no murmurs, rubs, or gallops. Pulmonary: Mechanically ventilated. Lungs were clear to auscultation bilaterally with no crackles or wheezes. Abdominal: Normoactive bowel sounds. Abdomen was mildly distended to palpation. Extremities: Upper and lower extremities are warm and well perfused. Skin: small papilar erythematous rash on back with open lesions on left back that does not spread over the midline Results & Data Results & Data ([facility]) Vital Signs (Past 12 Hours) Vital Signs Temp Pulse Pulse Resp BP BP Pulse Ox 10/02/20 19:06 36.2 C L 81 20 168/108 H 93 10/02/20 16:37 72 10/02/20 15:22 36.9 C 61 19 167/96 H 94 10/02/20 12:01 36.7 C 55 L 19 179/102 H 95 PG Care Time/CCT Total # of Minutes Spent Total Time Spent with Patient: Total time spent is greater than 50% in coordination of care (as documented) at patient's floor/unit and/or counseling patient: Coding Level of Care Code 51895 Subseq Hosp Care Lvl 3 Diagnoses Unresponsive episode R41.89 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 E11.641 Hypertension I10 Hypertension type: unspecified Paroxysmal A-fib I48.0 Hyperlipidemia E78.5 Hypothyroidism E03.9 Acute respiratory failure with hypoxemia J96.01 Rash R21 Nicotine abuse Z72.0 Time Spent (min) 40 (1) Hypertension Hypertension type: unspecified Qualified Code(s): I10 - Essential (primary) hypertension
[2020-10-03] MEDS: INSULIN ASPART 100 UNITS/ML 3 ML PEN SC SCH ×7 (00:24→20:59)
[2020-10-03] MEDS: TUBE FEEDING WATER FLUSH GT SCH ×3 (04:16→12:26)
[2020-10-03] MEDS: LEVOTHYROXINE SODIUM 125 MCG TABLET PO SCH (04:18)
[2020-10-03] MEDS: FAMOTIDINE 20 MG in SYRINGE 3 ML IV SCH ×2 (08:05→20:01)
[2020-10-03] MEDS ORDERED: LORazepam 0.5 MG TAB SL STA (08:07)
[2020-10-03] MEDS ORDERED: LORazepam 0.25 MG/0.5 ML VIAL IV STA (08:51)
[2020-10-03] MEDS ORDERED: INSULIN GLARGINE SOLOSTAR 100 UNITS/ML 3 ML PEN SC SCH (09:00)
--- NOTE | 2020-10-03 09:30 | Pharmacy Report ---
Pharmacy Glycemic Short Note 2 - Date of Service October 03, 2020 - Glycemic Short BSG Results (Last 24 hours): 10/02/20 10/02/20 10/02/20 11:51 16:07 21:16 POC Glucose 182 H 120 H 172 H 10/03/20 10/03/20 10/03/20 00:22 03:51 08:02 POC Glucose 234 H 160 H 228 H OUTPATIENT ANTIDIABETIC REGIMEN: * Patient unresponsive and not able to confirm the following: * Novolin 70/30, 20 units BID * Metformin * Patient has been found many times in driveway/yard hypoglycemic from too much insulin ASSESSMENT: 10/03 * BSGs again fairly well controlled except above goal overnight, increase basal * Tube feedings continue at this time (Peptamen VHP @50cc/hr with goal of 65cc/hr) 10/01 * BSGs again fairly well controlled * 32 units SQ insulin administered over last 24 hours * Patient was extubated yesterday * Tube feedings continue at this time (Peptamen VHP @50cc/hr with goal of 65cc/hr) * Will adjust NovoLog CF/CR due to occasional mild hyperglycemia observed as TF titrated up 09/30 * BSGs well controlled over last 24 hours * BSGs in the 160-180s range this AM with Peptamen VHP running at 30cc/hr * Will continue same dose of Lantus at this time. * Will follow BSG pattern with use of NovoLog CF/CR as TF titrated to goal. 09/29 * 65 yo M with T2DM admitted 09/28 after being found unresponsive at home with BSG's in the 20's. Patient was last known well 09/27 PM therefore duration and extent of hypoglycemia may have been profound. * Ongoing encephalopathy now that BSG's have been corrected - concern for significant cerebral damage from hypoglycemia * Avoidance of repeat hypoglycemia important - mild hyperglycemia reasonable at this time as it is preferable to unintentional repeat hypoglycemia, until current inpatient needs can be better determined * AM BSG now 167 mg/dL after all insulin was held yesterday. Will initiate low- dose Lantus and NovoLog q4h PLAN FOR INPATIENT GLYCEMIC CONTROL: * Hold outpatient oral diabetes medications (metformin) * Basal insulin -increase * Lantus 24 units SQ Q AM. * Bolus insulin * NovoLog per scale q4h * Goal Range: 110-140 mg/dL * Correction Factor: 25 mg/dL/unit * Nutritional / Prandial insulin per carb ratio of 1 unit per 8 grams CHO consumed Outpatient recommendations * family life educator involvement will be essential if/when patient is alert and oriented enough to discuss outpatient regimen
[2020-10-03] MEDS: METOPROLOL TARTRATE 25 MG TAB PO SCH (10:33)
[2020-10-03] MEDS: lisinopril 40 MG TAB PO SCH ×2 (10:33→15:19)
[2020-10-03] MEDS: QUEtiapine FUMARATE 25 MG TABLET PO SCH ×2 (10:34→20:09)
[2020-10-03] MEDS: valACYclovir HCL 500 MG TABLET PO SCH ×3 (10:36→20:04)
[2020-10-03] MEDS: METOPROLOL TARTRATE 1 MG/ML VIAL IV SCH ×3 (12:26→23:43)
[2020-10-03] MEDS: NICOTINE 21 MG/24 HR TDSY TD SCH (12:32)
[2020-10-03] MEDS ORDERED: METOPROLOL TARTRATE 1 MG/ML VIAL IV STA ×2 (13:15→14:21)
[2020-10-03] MEDS ORDERED: 0.2 MICRON FILTER SET 1 EA IV ONE (16:25)
[2020-10-03] MEDS ORDERED: AMIODARONE / D5W 150 MG/100 ML BAG IV STA (16:25)
[2020-10-03] MEDS ORDERED: AMIODARONE IV BOLUS & DRIP IV STA (16:25)
[2020-10-03] MEDS ORDERED: STAT IV Infusion **Titration per Protocol STA (16:25)
[2020-10-03] MEDS ORDERED: AMIODARONE / D5W 360 MG/200 ML BAG IV ONE (16:35)
[2020-10-03] MEDS: HEPARIN SODIUM/DEXTROSE 25,000 UNITS/500 ML BAG IV SCH (17:15)
[2020-10-03] MEDS: LORazepam 0.25 MG/0.5 ML VIAL IV PRN ×3 (17:18→23:44)
[2020-10-03] MEDS: Heparin IV Adult Wt-Based Standard *NO* Bolus Protocol IV SCH ×2 (17:41→17:42)
[2020-10-03 18:28] LABS: INR 1.1 (0.9-1.1); Partial Thromboplastin Ratio 1.1; Partial Thromboplastin Time 28.5 Seconds (21.0-31.0); Prothrombin Time 11.4 Seconds (9.0-12.0)
[2020-10-03 18:39] LABS: Basophils # (auto) 0.02 K/uL (0-0.2); Basophils % (auto) 0.3 %; Eosinophils % (auto) 2.8 %; Hematocrit (blood only) 46.7 % (42-52); Hemoglobin 17.2 g/dL (14.0-18.0); Immature Granulocytes # (auto) 0.01 K/uL (0.00-0.02); Immature Granulocytes % (auto) 0.1 %; Lymphocytes # (auto) 1.87 K/uL (1.2-3.4); Lymphocytes % (auto) 26.1 %; Mean Corpuscular Hemoglobin 31.2 pg (25-34); Mean Corpuscular Hgb Conc 36.8 g/dL (32-36); Mean Corpuscular Volume 84.8 fL (80-100); Mean Platelet Volume 9.1 fL (7.4-10.4); Monocytes # (auto) 0.88 K/uL (0.11-0.59); Monocytes % (auto) 12.3 %; Neutrophils # (auto) 4.18 K/uL (1.4-6.5); Neutrophils % (auto) 58.4 %; Platelet Count 214 K/uL (130-400); RDW Coefficient of Variation 12.7 % (11.5-14.5); RDW Standard Deviation 39.5 fL (36.4-46.3); Red Blood Count 5.51 M/uL (4.7-6.1); White Blood Count 7.16 K/uL (4.8-10.8)
[2020-10-03] MEDS ORDERED: hydrALAZINE HCL 20 MG/ML VIAL IV ONE (19:00)
[2020-10-03] MEDS: ATORVASTATIN 40 MG TAB PO SCH (20:02)
--- NOTE | 2020-10-03 20:35 | Hospitalist Progress Note ---
Date of Service October 03, 2020 Assessment & Plan (1) Unresponsive episode: Plan: Patient found to be unresponsive and was intubated for airway protection. Patient was extubated yesterday. Patient is awake and confused. Patient is having encephalopathy and delirium, patient is requiring restraints. will consult palliative care. EEG showing encephalopathy. MRI negative for stroke. Patient is now downgraded to TELE. Poor prognosis. Spoke to [facility] on the phone and updated her extensively. Removed restarints on 10/02 Patient removed NG tube, had speech eval and patient started diet. However, nurse feels patient is struggling with diet, may need re-eval on Sunday. will continue 1 to 1. (2) 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: Plan: As above. found hypoglycemic with level of BSG 20. (3) Hypertension: Plan: will resume metoprolol (4) Paroxysmal A-fib: Plan: Patient is currenlty in atrial flutter. D/W cardio: As patient is not responding to metoprolol. placed on amiodarone and heparin drip (5) Hyperlipidemia: Plan: resume home meds (6) Hypothyroidism: Plan: resume home meds (7) Acute respiratory failure with hypoxemia: Plan: Patient with hypoglycemia and unresponsive is intubated and on ventilator support. SPO2 down to 88% on arrival. Unresponsive requiring ventilator support, hypoglycemia As above. (8) Rash: Plan: eventhough it appears to be about 5 dermatomes, it still may be varicella, patient will be on isolation precautions. added valacyclovir, (9) Nicotine abuse: Plan: ordered nicotine patch Admission and Anticipated Discharge Date Admission Date: September 28, 2020 Subjective Patient remains intermittently confused. He has no new complaints. Updated Guerline. Review of Systems Review of Systems: All systems reviewed & are unremarkable except as noted in HPI & below Physical Exam Physical Exam: General: 65-year-old gentleman that is extubated but is confused HEENT: NCAT. Cardiac:normal rate with irregular rhythm; S1 and S2 present with no murmurs, rubs, or gallops. Pulmonary: Mechanically ventilated. Lungs were clear to auscultation bilaterally with no crackles or wheezes. Abdominal: Normoactive bowel sounds. Abdomen was mildly distended to palpation. Extremities: Upper and lower extremities are warm and well perfused. Skin: small papilar erythematous rash on back with open lesions on left back that does not spread over the midline Results & Data Results & Data ([facility]) Vital Signs (Past 12 Hours) Vital Signs Temp Pulse Pulse Pulse Resp BP BP 10/03/20 20:00 108 H 20 158/102 H 10/03/20 19:00 36.8 C 139 H 22 147/140 H 10/03/20 18:45 145 H 10/03/20 18:20 112 H 20 188/142 H 10/03/20 18:05 106 H 19 156/131 H 10/03/20 17:50 110 H 19 134/105 H 10/03/20 17:35 99 H 18 140/98 10/03/20 17:29 92 H 144/104 H 10/03/20 17:20 107 H 144/104 H 10/03/20 17:05 100 H 149/106 H 10/03/20 14:27 159 H 142/110 H 10/03/20 13:23 108 H 153/94 H 10/03/20 12:26 67 153/94 H 10/03/20 11:23 36.9 C 67 19 153/94 H Pulse Ox 10/03/20 20:00 97 10/03/20 19:00 97 10/03/20 18:45 10/03/20 18:20 10/03/20 18:05 96 10/03/20 17:50 100 10/03/20 17:35 98 10/03/20 17:29 10/03/20 17:20 10/03/20 17:05 10/03/20 14:27 10/03/20 13:23 10/03/20 12:26 10/03/20 11:23 94 PG Care Time/CCT Total # of Minutes Spent Total Time Spent with Patient: Total time spent is greater than 50% in coordination of care (as documented) at patient's floor/unit and/or counseling patient: Coding Level of Care Code 66398 Subseq Hosp Care Lvl 3 Diagnoses Unresponsive episode R41.89 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 E11.641 Hypertension I10 Hypertension type: unspecified Paroxysmal A-fib I48.0 Hyperlipidemia E78.5 Hypothyroidism E03.9 Acute respiratory failure with hypoxemia J96.01 Rash R21 Nicotine abuse Z72.0 Time Spent (min) 45 (1) Hypertension Hypertension type: unspecified Qualified Code(s): I10 - Essential (primary) hypertension
[2020-10-03] MEDS: AMIODARONE / D5W 360 MG/200 ML BAG IV SCH (23:26)
[2020-10-03 23:53] LABS: Partial Thromboplastin Ratio 1.3; Partial Thromboplastin Time 33.8 Seconds (21.0-31.0)
[2020-10-04] MEDS ORDERED: HEPARIN IV BOLUS 4,000 UNITS in SYRINGE 0 ML IV STA (01:20)
[2020-10-04] MEDS: LORazepam 0.25 MG/0.5 ML VIAL IV PRN ×2 (03:00→08:33)
[2020-10-04] MEDS: METOPROLOL TARTRATE 1 MG/ML VIAL IV SCH ×3 (06:12→17:43)
[2020-10-04 07:48] LABS: Partial Thromboplastin Ratio 1.4; Partial Thromboplastin Time 35.6 Seconds (21.0-31.0)
[2020-10-04] MEDS: NICOTINE 21 MG/24 HR TDSY TD SCH (08:32)
[2020-10-04] MEDS: FAMOTIDINE 20 MG in SYRINGE 3 ML IV SCH ×2 (08:43→20:18)
[2020-10-04] MEDS: HEPARIN SODIUM/DEXTROSE 25,000 UNITS/500 ML BAG IV SCH ×2 (08:47→20:13)
[2020-10-04] MEDS: INSULIN ASPART 100 UNITS/ML 3 ML PEN SC SCH ×4 (08:47→20:05)
[2020-10-04] MEDS ORDERED: HEPARIN SOD (PORCINE) 1000 UNIT/ML IV ONE (09:00)
[2020-10-04] MEDS: INSULIN GLARGINE SOLOSTAR 100 UNITS/ML 3 ML PEN SC SCH (09:50)
[2020-10-04] MEDS: AMIODARONE / D5W 360 MG/200 ML BAG IV SCH ×2 (09:51→20:12)
--- NOTE | 2020-10-04 10:50 | Cardiology Consultation ---
Date of Consultation October 04, 2020 Assessment & Plan (1) Paroxysmal A-fib: -ventricular response still elevated despite intravenous amiodarone and metoprolol tartrate. -could increase metoprolol tartrate to 5 mg IV Q2 hours p.r.n. -remains on intravenous heparin. -took Xarelto 20 mg daily as an outpatient. (2) Hypertension: -adequate control on current regimen. (3) Hyperlipidemia: -continue atorvastatin. (4) Acute encephalopathy: -likely secondary to a prolonged episode of hypoglycemia. -management per Dr. Castaneda. History of Present Illness Attending Physician: Kaushal Castaneda DO History of Present Illness Mr. Kumar is a 65-year-old male admitted on September 28 unresponsive and hypoglycemic. The patient carries a history of paroxysmal atrial fibrillation and follows with Dr. Rodriges in the outpatient setting. He developed rapid atrial fibrillation prompting this consultation. The patient's history was obtained from the chart review. He is minimally responsive at this time. On the day of presentation, the patient was found unresponsive in his home by one of the neighbors. The patient did not show up for work that particular day. According to EMS, the patient's home was full of garbage. When his blood sugars checked, it was profoundly low at 20 mg/dL. The patient received D50 intravenously, however, there was no change in his clinical status. On arrival to emergency room, patient was intubated for airway protection. He was demonstrating some decorticate posturing according to the emergency room report. The patient was last seen by Dr. Rodriges on August 10, 2020. The patient was tolerating rate control and long-term anticoagulation (Xarelto) without difficulty. Past medical and surgical history 1. Hypertension 2. Hypercholesterolemia 3. Paroxysmal atrial fibrillation 4. Diabetes mellitus 5. Hypothyroidism 6. Vitamin-D deficiency 7. 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 Chews tobacco Significant alcohol use Family history Unobtainable Review of systems Unobtainable Allergies Allergy/AdvReac Type Severity Reaction Status Date / Time No Known Allergies Allergy Verified 09/28/20 17:01 Home Medications Medication Instructions Recorded Confirmed Type metformin 500 mg tablet,extended 500 mg PO BID #60 tab 10/20/19 09/28/20 Rx release 24hr trazodone 50 mg tablet 50 mg PO HS PRN 07/16/20 09/28/20 History atorvastatin 40 mg tablet 40 mg PO QPM #30 tab 07/30/20 09/10/20 Rx insulin human U-100 NPH-regulr 20 unit SUBCUT BID #20 ml 07/30/20 09/28/20 Rx 70-30 mix 100 unit/mL subcutaneous susp (Novolin 70/30 U-100 Insulin) lisinopril 40 mg tablet 40 mg PO DAILY #30 tab 08/10/20 09/28/20 Rx levothyroxine 125 mcg tablet 125 mcg PO DAILY #30 tab 08/31/20 09/28/20 Rx rivaroxaban 20 mg tablet (Xarelto) 20 mg PO DAILY@1800 30 Days #30 tab 09/01/20 09/28/20 Rx atorvastatin 40 mg tablet 40 mg PO QPM 09/28/20 09/28/20 History metoprolol succinate 100 mg 50 mg PO DAILY 09/28/20 09/28/20 History tablet,extended release 24 hr Patient History Medical History Cough Diabetes History of alcoholism History of prostate cancer HTN (hypertension) Hyperlipidemia Hypothyroidism Insomnia Nausea Seborrheic dermatitis of scalp Sore throat Tobacco abuse Vitamin D deficiency Surgical History History of left knee surgery History of shoulder surgery Left Family History Mother Cancer Grandmother (Paternal) Stroke Grandfather (Paternal) Stroke Other Myocardial infarction Denies family history of Ovarian cancer Prostate cancer Breast cancer Colorectal cancer Social History Smoking Status: Unknown if ever smoked Second Hand Exposure: No; Do You Dip or Chew Tobacco: Yes; Preferred Language: Divehi Communication Ability: Unable Geodesy Teacher Required: No Beliefs That Will Affect Care: None marital status: Single Current Living Situation: Alone current occupational status: employed 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 HEENT exam is negative. Neck is supple with full carotid upstrokes. No obvious bruits. Jugular venous pressure is difficult to assess. Cardiovascular exam reveals irregular irregular rhythm with distant heart sounds. No obvious murmurs. Lungs are clear without rales, rhonchi, or wheezes. Abdomen is soft without bruits. Extremities reveal intact radial artery pulses bilaterally. There is no peripheral edema. Results & Data ([facility]) Vital Signs (Past 12 Hours) Vital Signs Temp Pulse Resp BP Pulse Ox 10/04/20 07:16 36.4 C L 98 H 20 131/99 96 10/04/20 03:43 93 H 18 121/96 92 10/03/20 23:00 36.7 C 100 H 20 134/110 H 95 Laboratory Results CBC notes hemoglobin of 17.2, hematocrit 46.7, white count 7.16, and platelet count of [id number]. Electrolytes note a sodium of 141, potassium 3.5, chloride 107, bicarb 33, BUN 16, creatinine 0.68, and glucose of 163. Troponin I level at time of presentation was undetectable at less than 0.015. Diagnostic Findings EKG notes atrial fibrillation with rapid ventricular response. There is a complete right bundle branch block and left anterior hemiblock. patient monitor notes rapid atrial fibrillation with a heart rate varying between 100- 120 beats per minute. PG Care Time/CCT Total # of Minutes Spent Total Time Spent with Patient: Total time spent is greater than 50% in coordination of care (as documented) at patient's floor/unit and/or counseling patient: Coding Level of Care Code 12176 Initial Inpt Care Lvl 3 Diagnoses Paroxysmal A-fib I48.0 Hypertension I10 Hypertension type: unspecified Hyperlipidemia E78.5 Acute encephalopathy G93.40 (1) Hypertension Hypertension type: unspecified Qualified Code(s): I10 - Essential (primary) hypertension
--- NOTE | 2020-10-04 13:14 | Electrocardiogram Report ---
Test Reason : Blood Pressure : / mmHG Vent. Rate : 133 BPM Atrial Rate : 156 BPM P-R Int : 000 ms QRS Dur : 122 ms QT Int : 358 ms P-R-T Axes : 000 -52 -04 degrees QTc Int : 532 ms Atrial fibrillation with rapid ventricular response Right bundle branch block Left anterior fascicular block Bifascicular block Abnormal ECG When compared with ECG of 28-SEP-2020 17:06, Left anterior fascicular block is now Present Confirmed by Reza Victor ([id number]) on 10/04/2020 1:13:51 PM Referred By: REFERRED SELF Confirmed By:Reza Victor
--- NOTE | 2020-10-04 14:01 | Pharmacy Report ---
Pharmacy Glycemic Short Note 2 - Date of Service October 04, 2020 - Glycemic Short BSG Results (Last 24 hours): 10/03/20 10/03/20 10/04/20 16:37 19:57 07:22 POC Glucose 185 H 206 H 269 H 10/04/20 11:30 POC Glucose 261 H OUTPATIENT ANTIDIABETIC REGIMEN: * Patient unresponsive and not able to confirm the following: * Novolin 70/30, 20 units BID * Metformin * Patient has been found many times in driveway/yard hypoglycemic from too much insulin ASSESSMENT: 10/04: * BSgs elevated today, both fasting and post prandial. Of note, patient was started on a heparin infusion and amiodarone infusion both mixed in dextrose, which could be contributing. TFs were stopped yesterday afternoon and a diet was ordered. Patient is eating today but intake is minimal. * Will increase basal insulin again today by ~20% and tighten CF for the novolog. Will also add overnight checks and coverage. 10/03 * BSGs again fairly well controlled except above goal overnight, increase basal * Tube feedings continue at this time (Peptamen VHP @50cc/hr with goal of 65cc/hr) 10/01 * BSGs again fairly well controlled * 32 units SQ insulin administered over last 24 hours * Patient was extubated yesterday * Tube feedings continue at this time (Peptamen VHP @50cc/hr with goal of 65cc/hr) * Will adjust NovoLog CF/CR due to occasional mild hyperglycemia observed as TF titrated up 09/30 * BSGs well controlled over last 24 hours * BSGs in the 160-180s range this AM with Peptamen VHP running at 30cc/hr * Will continue same dose of Lantus at this time. * Will follow BSG pattern with use of NovoLog CF/CR as TF titrated to goal. 09/29 * 65 yo M with T2DM admitted 09/28 after being found unresponsive at home with BSG's in the 's. Patient was last known well 712 PM therefore duration and extent of hypoglycemia may have been profound. * Ongoing encephalopathy now that BSG's have been corrected - concern for significant cerebral damage from hypoglycemia * Avoidance of repeat hypoglycemia important - mild hyperglycemia reasonable at this time as it is preferable to unintentional repeat hypoglycemia, until current inpatient needs can be better determined * AM BSG now 167 mg/dL after all insulin was held yesterday. Will initiate low- dose Lantus and NovoLog q4h PLAN FOR INPATIENT GLYCEMIC CONTROL: * Hold outpatient oral diabetes medications (metformin) * Basal insulin -increase * Lantus 30 units SQ Q AM. * Bolus insulin * NovoLog per scale q4h * Goal Range: 110-140 mg/dL * Correction Factor: 15 mg/dL/unit * Nutritional / Prandial insulin per carb ratio of 1 unit per 7 grams CHO consumed Outpatient recommendations * photoradio operator involvement will be essential if/when patient is alert and oriented enough to discuss outpatient regimen
[2020-10-04] MEDS: QUEtiapine FUMARATE 25 MG TABLET PO SCH ×2 (14:15→20:02)
[2020-10-04] MEDS: lisinopril 40 MG TAB PO SCH (14:16)
[2020-10-04] MEDS: valACYclovir HCL 500 MG TABLET PO SCH ×3 (14:17→20:04)
--- NOTE | 2020-10-04 14:39 | Hospitalist Progress Note ---
Date of Service October 04, 2020 Assessment & Plan (1) Unresponsive episode: Plan: Patient found to be unresponsive and was intubated for airway protection. Patient was extubated 10/02. Patient is sleeping a lot but will wake up, is confused. Patient is having encephalopathy and delirium, patient is requiring Ativan and one to one will consult palliative care. EEG showing encephalopathy. MRI negative for stroke. appreciate neurology consult, encephalopathy could be result of prolonged time of hypoglycemia Poor prognosis. Patient removed NG tube, had speech eval and patient started diet. will continue 1 to 1. (2) 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: Plan: As above. found hypoglycemic with level of BSG 20. sugars have been stable since admission (3) Hypertension: Plan: will resume metoprolol, increase to 5mg IV q6 (4) Paroxysmal A-fib: Plan: Patient is currenlty in atrial flutter. D/W cardio: placed on amiodarone and heparin drip, increase metoprolol to 5mg IV q6 hope he converts, once taking PO more reliably will place on oral Lopressor and PO anticoagulation (5) Hyperlipidemia: Plan: resume home meds (6) Hypothyroidism: Plan: resume home meds (7) Acute respiratory failure with hypoxemia: Plan: Patient with hypoglycemia and unresponsive is intubated and on ventilator support. SPO2 down to 88% on arrival. Unresponsive requiring ventilator support, hypoglycemia extubated for several days, breathing comfortably on low flow oxygen (8) Rash: Plan: eventhough it appears to be about 5 dermatomes, it still may be varicella, patient will be on isolation precautions. added valacyclovir, (9) Nicotine abuse: Plan: ordered nicotine patch Admission and Anticipated Discharge Date Admission Date: September 28, 2020 Subjective patient lethargic this morning after Ativan woke up more this afternoon, he was oriented to the month, not year, did not know he was in the hospital denied any pain he was able to drink liquids, ate applesauce and jello d/w Dr. Parikh, unsure of baseline, giving him time to come around reviewed chart and labs Review of Systems Review of Systems: Unobtainable due to cognitive status (lethargic and confused) Physical Exam Constitutional: WD/WN, vitals as above + altered mental status and + lethargic; no acute distress Neck: trachea midline, no thyromegaly Respiratory: normal respiratory effort, lungs clear to auscultation Cardiovascular: RRR, no murmur, no edema Gastrointestinal (Abdomen): normal bowel sounds, soft, nontender, no hepatosp lenomegaly Musculoskeletal: no cyanosis or clubbing, extremities motor strength 5/5 Skin: no rashes, warm and dry Neurologic: CN's II-XI intact bilaterally, moves all extremities and + confused; no focal motor deficits and + not awake (sleeping a lot) Results & Data Results & Data ([facility]) Vital Signs (Past 12 Hours) Vital Signs Temp Pulse Pulse Resp BP BP Pulse Ox 10/04/20 13:55 106 H 147/103 H 10/04/20 10:56 36.5 C 106 H 20 147/103 H 95 10/04/20 07:16 36.4 C L 98 H 20 131/99 96 10/04/20 03:43 93 H 18 121/96 92 Laboratory Results Laboratory Results - last 24 hr 10/03/20 10/03/20 10/03/20 16:37 18:07 18:07 WBC 7.16 RBC 5.51 Hgb 17.2 Hct 46.7 MCV 84.8 MCH 31.2 MCHC 36.8 H RDW Std Deviation 39.5 RDW Coeff of Robyn 12.7 Plt Count 214 MPV 9.1 Immature Gran % (Auto) 0.1 Neut % (Auto) 58.4 Lymph % (Auto) 26.1 [place] % (Auto) 12.3 Eos % (Auto) 2.8 Baso % (Auto) 0.3 Neut # (Auto) 4.18 Lymph # (Auto) 1.87 [place] # (Auto) 0.88 H Eos # (Auto) 0.20 Baso # (Auto) 0.02 Immature Gran # (Auto) 0.01 PT 11.4 INR 1.1 APTT 28.5 PTT Ratio 1.1 POC Glucose 185 H 10/03/20 10/03/20 10/04/20 19:57 23:23 06:58 WBC RBC Hgb Hct MCV MCH MCHC RDW Std Deviation RDW Coeff of Robyn Plt Count MPV Immature Gran % (Auto) Neut % (Auto) Lymph % (Auto) [place] % (Auto) Eos % (Auto) Baso % (Auto) Neut # (Auto) Lymph # (Auto) [place] # (Auto) Eos # (Auto) Baso # (Auto) Immature Gran # (Auto) PT INR APTT 33.8 H 35.6 H PTT Ratio 1.3 1.4 POC Glucose 206 H 10/04/20 10/04/20 07:22 11:30 WBC RBC Hgb Hct MCV MCH MCHC RDW Std Deviation RDW Coeff of Robyn Plt Count MPV Immature Gran % (Auto) Neut % (Auto) Lymph % (Auto) [place] % (Auto) Eos % (Auto) Baso % (Auto) Neut # (Auto) Lymph # (Auto) [place] # (Auto) Eos # (Auto) Baso # (Auto) Immature Gran # (Auto) PT INR APTT PTT Ratio POC Glucose 269 H 261 H Medications Administered Current Inpatient Medications Acetaminophen (Acetaminophen 325 Mg Tab) 650 mg PO Q4H PRN PRN Reason: fever Stop: 10/30/20 23:08 Last Admin: 09/30/20 23:54 Dose: 650 mg Documented by: Atorvastatin Calcium (Atorvastatin 40 Mg Tab) 40 mg PO QPM [facility] Stop: 10/28/20 21:25 Last Admin: 10/03/20 20:02 Dose: Not Given Documented by: Dextrose (Dextrose 50% 50 Ml Syringe) 25 - 50 ml IV UD PRN; Protocol PRN Reason: Hypoglycemia Protocol Stop: 10/29/20 01:29 Glucagon (Glucagon For Inj 1 Mg Vial) 1 mg IM UD PRN; Protocol PRN Reason: Hypoglycemia Protocol Stop: 10/29/20 01:29 Glucose (Glucose 40% Gel 15 Gm Tube) 15 - 30 gm PO UD PRN; Protocol PRN Reason: Hypoglycemia Protocol Stop: 10/29/20 01:29 Glucose (Glucose 10 Tabs/Tube) 4 - 8 tabs PO UD PRN; Protocol PRN Reason: Hypoglycemia Protocol Stop: 10/29/20 01:29 Famotidine 20 mg/ Syringe 5 mls @ 2.5 mls/min IV Q12 [facility] Stop: 10/29/20 11:14 Last Admin: 10/04/20 08:43 Dose: 2.5 mls/min Documented by: Lorazepam (Ativan) 0.25 mg in 0.5 mls @ 0.5 mls/min IV Q1H PRN PRN Reason: agitation Stop: 11/02/20 08:50 Last Admin: 10/04/20 08:33 Dose: 0.5 mls/min Documented by: Levothyroxine Sodium 90 mcg/ (Syringe) 4.5 mls @ 2 mls/min IV Q72H [facility] Stop: 11/05/20 08:59 Amiodarone HCl/Dextrose (Nexterone / D5w) 360 mg in 200 mls @ 16.667 mls/hr IV .Q12H [facility] Stop: 11/02/20 22:33 Last Admin: 10/04/20 09:51 Dose: 0.5 mg/min, 16.7 mls/hr Documented by: Heparin Sodium/Dextrose (Heparin Sodium/Dextrose) 25,000 units in 500 mls @ 41 mls/hr IV .[id number] [facility]; Protocol Stop: 11/02/20 16:44 Last Admin: 10/04/20 08:47 Dose: 2,050 units/hr, 41 mls/hr Documented by: Insulin Aspart (Insulin Aspart 100 Units/Ml 3 Ml Pen) 0 units SC ACHS [facility]; Protocol Stop: 11/02/20 13:59 Last Admin: 10/04/20 12:29 Dose: 10 units Documented by: Insulin Aspart (Insulin Aspart 100 Units/Ml 3 Ml Pen) 0 units SC 0000,0400 [facility]; Protocol Stop: 10/05/20 04:01 Insulin Glargine (Insulin Glargine Solostar 100 Units/Ml 3 Ml Pen) 30 units SC QAM [facility]; Protocol Stop: 11/03/20 08:59 Last Admin: 10/04/20 09:50 Dose: 30 units Documented by: Lisinopril (Lisinopril 40 Mg Tab) 40 mg PO DAILY [facility] Stop: 10/29/20 08:59 Last Admin: 10/04/20 14:16 Dose: 40 mg Documented by: Metoprolol Tartrate (Metoprolol Tartrate 1 Mg/Ml Vial) 5 mg IV Q6 [facility] Stop: 11/03/20 17:59 Miscellaneous (Carbohydrates For Hypoglycemia ) 15 - 30 gm PO UD PRN PRN Reason: Hypoglycemia Treatment Stop: 10/29/20 01:29 Miscellaneous (Remove Nicoderm Patch) 1 ea N/A DAILY@0859 [facility] Stop: 11/02/20 08:58 Last Admin: 10/04/20 08:43 Dose: 1 ea Documented by: Miscellaneous Information (Pharmacy Glycemic Mgmt Consult) 1 ea N/A UD PRN PRN Reason: Consult Stop: 10/28/20 21:09 Nicotine (Nicotine 21 Mg/24 Hr Tdsy) 21 mg TD QAM [facility] Stop: 11/01/20 17:29 Last Admin: 10/04/20 08:32 Dose: 21 mg Documented by: Quetiapine Fumarate (Quetiapine Fumarate 25 Mg Tablet) 12.5 mg PO BID [facility] Stop: 10/31/20 20:59 Last Admin: 10/04/20 14:15 Dose: 12.5 mg Documented by: Valacyclovir HCl (Valacyclovir Hcl 500 Mg Tablet) 1,000 mg PO TID [facility] Stop: 10/09/20 13:59 Last Admin: 10/04/20 14:17 Dose: 1,000 mg Documented by: PG Care Time/CCT Total # of Minutes Spent Total Time Spent with Patient: Total time spent is greater than 50% in coordination of care (as documented) at patient's floor/unit and/or counseling patient: Coding Level of Care Code 44415 Subseq Hosp Care Lvl 2 Diagnoses Unresponsive episode R41.89 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 E11.641 Hypertension I10 Hypertension type: unspecified Paroxysmal A-fib I48.0 Hyperlipidemia E78.5 Hypothyroidism E03.9 Acute respiratory failure with hypoxemia J96.01 Rash R21 Nicotine abuse Z72.0 (1) Hypertension Hypertension type: unspecified Qualified Code(s): I10 - Essential (primary) hypertension
--- NOTE | 2020-10-04 15:11 | Palliative Care Progress Note ---
Date of Service October 04, 2020 Assessment & Plan (1) Palliative care encounter: Plan: I spoke with Guerline, as well as Foster's brother, Kumar. They are pleased that he is showing some improvement and eating. Their hope would be that he could continue to improve with oral intake and be able to participate in goals of care discussion as we move forward. I did also talk with them about code status as he had been a conditional code while intubated in the ER. They are in agreement that at least until he can speak for himself, they would want him to be full code. They feel that since he has improved from his prior poor prognosis, they would want him to have a chance for future recovery. Code status was changed to reflect this. As with artificial nutrition, this will be discussed further with Foster as he is able to clarify what his wishes are. Admission and Anticipated Discharge Date Admission Date: September 28, 2020 Subjective Continues to be restless and agitated at times. Also cogent at times and wanting to talk with Guerline. He did have ativan earlier this morning and is resting comfortably at the moment. Review of Systems Review of Systems: [place] Symptom Assessment Scale Pain 0/3 Dyspnea 0/3 Drowsiness 2/3 Palliative Performance Score 30% Physical Exam Constitutional: + lethargic; no acute distress Respiratory: normal respiratory effort; no labored breathing Cardiovascular: Rate/Rhythm: regular rate and regular rhythm Musculoskeletal: Extremities: extremities normal to inspection Results & Data ([facility]) Vital Signs (Past 12 Hours) Vital Signs Temp Pulse Pulse Resp BP BP Pulse Ox 10/04/20 13:55 106 H 147/103 H 10/04/20 10:56 97.7 F 106 H 20 147/103 H 95 10/04/20 07:16 97.5 F L 98 H 20 131/99 96 10/04/20 03:43 93 H 18 121/96 92 PG Care Time/CCT Total # of Minutes Spent Total Time Spent: 25 Total Time Spent with Patient: Total time spent is greater than 50% in coordination of care (as documented) at patient's floor/unit and/or counseling patient:spent on goals of care, code status Coding Level of Care Code 32477 Subseq Hosp Care Lvl 2 Diagnoses Palliative care encounter Z51.5
[2020-10-04 15:34] LABS: Partial Thromboplastin Ratio 2.7
[2020-10-04 15:43] LABS: Partial Thromboplastin Time 70.6 Seconds (21.0-31.0)
[2020-10-04] MEDS: ATORVASTATIN 40 MG TAB PO SCH (20:03)
[2020-10-04 23:22] LABS: Partial Thromboplastin Ratio 2.5
[2020-10-04 23:23] LABS: Partial Thromboplastin Time 66.3 Seconds (21.0-31.0)
[2020-10-05] MEDS: METOPROLOL TARTRATE 1 MG/ML VIAL IV SCH ×3 (01:38→12:01)
[2020-10-05] MEDS: INSULIN ASPART 100 UNITS/ML 3 ML PEN SC SCH ×6 (04:30→21:02)
[2020-10-05 06:53] LABS: Partial Thromboplastin Ratio 2.8
[2020-10-05 07:13] LABS: Partial Thromboplastin Time 72.7 Seconds (21.0-31.0)
[2020-10-05] MEDS: AMIODARONE / D5W 360 MG/200 ML BAG IV SCH (08:36)
[2020-10-05] MEDS: NICOTINE 21 MG/24 HR TDSY TD SCH (08:38)
[2020-10-05] MEDS: FAMOTIDINE 20 MG in SYRINGE 3 ML IV SCH ×2 (08:38→21:06)
[2020-10-05] MEDS: lisinopril 40 MG TAB PO SCH (08:38)
[2020-10-05] MEDS: QUEtiapine FUMARATE 25 MG TABLET PO SCH ×2 (08:39→21:03)
[2020-10-05] MEDS: valACYclovir HCL 500 MG TABLET PO SCH ×3 (08:39→21:00)
--- NOTE | 2020-10-05 09:18 | Cardiology Progress Note ---
Date of Service October 05, 2020 Assessment & Plan (1) Paroxysmal A-fib: (2) Unresponsive episode: (3) History of alcoholism: (4) Diabetes: Plan: Patient reverted to sinus rhythm on IV amiodarone. Since he is now awake and taking pills, could change to amiodarone 200 mg orally twice daily. After 48 hours if he remains in sinus rhythm could decrease this to amiodarone 200 mg daily and continue this as an outpatient. He could be changed from IV heparin to rivaroxaban 20 mg orally once daily, continue as outpatient. Stable from cardiac standpoint, please notify if his cardiac status changes. Admission and Anticipated Discharge Date Admission Date: September 28, 2020 Subjective Patient is somewhat lethargic but awake and able to engage in conversation. He did not know the year or the name of the hospital. He denied any somatic complaints, noting no chest pain, dyspnea, subjective palpitations, or lightheadedness. His rhythm reverted from atrial fibrillation with rapid ventricular response to sinus yesterday afternoon and has remained sinus since. Physical Exam Physical Exam: No distress. Normotensive. Pulse 68 bpm and regular. Skin: no ecchymoses or generalized lesions. HEENT: unremarkable. Neck: Jugular venous pulse just above the clavicle at 90 degrees, no carotid bruits. Lungs: clear. Cardiac: regular rhythm, 2/6 basal systolic ejection murmur which is nonradiating, 2/6 apical holosystolic murmur rating to the axilla. No diastolic murmur. Abdomen: benign. Extremities: no edema, pulses intact. Neurologic: Lethargic but awake, mildly disoriented, grossly nonfocal. Results & Data ([facility]) Vital Signs (Past 12 Hours) Vital Signs Temp Pulse Pulse Resp BP BP Pulse Ox 10/05/20 07:01 98.1 F 70 17 112/76 96 10/05/20 03:53 98.1 F 68 16 109/74 92 10/05/20 01:38 68 10/04/20 22:39 98.6 F 72 22 155/98 H 97 PG Care Time/CCT Total # of Minutes Spent Total Time Spent with Patient: Total time spent is greater than 50% in coordination of care (as documented) at patient's floor/unit and/or counseling patient: Coding Level of Care Code 87021 Subseq Hosp Care Lvl 3 Diagnoses Paroxysmal A-fib I48.0 Unresponsive episode R41.89 History of alcoholism F10.21 Diabetes E11.9
[2020-10-05] MEDS: INSULIN GLARGINE SOLOSTAR 100 UNITS/ML 3 ML PEN SC SCH (10:08)
[2020-10-05] MEDS: HEPARIN SODIUM/DEXTROSE 25,000 UNITS/500 ML BAG IV SCH ×2 (11:19→20:49)
[2020-10-05] MEDS ORDERED: AMIODARONE 200 MG TAB PO ONE (14:05)
--- NOTE | 2020-10-05 14:08 | Hospitalist Progress Note ---
Date of Service October 05, 2020 Assessment & Plan (1) Unresponsive episode: Plan: Patient found to be unresponsive and was intubated for airway protection. Patient was extubated 10/02. Patient is more alert each day, encephalopathy appears to be resolving slowly EEG showed encephalopathy but this was a few days ago when more lethargic MRI negative for stroke. appreciate neurology consult, encephalopathy could be result of prolonged time of hypoglycemia Poor prognosis but appears to be getting a little better each day change Seroquel to just 12.5mg HS and stop AM dose to see if he can be more alert during the day anticipate he will need rehab (2) 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: Plan: As above. found hypoglycemic with level of BSG 20. sugars have been stable since admission, no hypoglycemic episodes today (3) Hypertension: Plan: will resume metoprolol 50mg qAM (4) Paroxysmal A-fib: Plan: Patient was in atrial flutter. treated with amiodarone drip and heparin drip due to not taking PO Lopressor 5mg IV q6 now that he can take PO will change to Amiodarone 200mg BID, Xarelto 20mg daily resume Toprol 50mg qAM converted to sinus rhythm on 10/05 (5) Hyperlipidemia: Plan: resume home meds (6) Hypothyroidism: Plan: resume home meds (7) Acute respiratory failure with hypoxemia: Plan: Patient with hypoglycemia and unresponsive is intubated and on ventilator support. SPO2 down to 88% on arrival. Unresponsive requiring ventilator support, hypoglycemia extubated for several days, breathing comfortably on low flow oxygen (8) Rash: Plan: resolved Valtrex stopped (9) Nicotine abuse: Plan: ordered nicotine patch Admission and Anticipated Discharge Date Admission Date: September 28, 2020 Subjective patient is more alert again today, he is eating and drinking, taking medications oriented to person, knows he is in a hospital, he says he is here due to low blood sugar which is accurate very weak, therapy ordered vitals stable, no labs today appreciate cardiology consult, will change to Amiodarone 200mg BID and start on Xarelto Review of Systems Review of Systems: All systems reviewed & are unremarkable except as noted in Subjective Constitutional: + fatigue and + weakness; no fever Respiratory: no cough and no dyspnea Cardiovascular: no chest pain and no edema Gastrointestinal: no abdominal pain, no nausea, no vomiting, no constipation and no diarrhea/loose stools Physical Exam Constitutional: WD/WN, vitals as above cooperative and comfortable; no acute distress Neck: trachea midline, no thyromegaly Respiratory: normal respiratory effort, lungs clear to auscultation Cardiovascular: RRR, no murmur, no edema Gastrointestinal (Abdomen): normal bowel sounds, soft, nontender, no hepatosplenomegaly Musculoskeletal: no cyanosis or clubbing, extremities motor strength 5/5 Skin: no rashes, warm and dry Neurologic: CN's II-XI intact bilaterally, moves all extremities and awake; no focal motor deficits Results & Data Results & Data ([facility]) Vital Signs (Past 12 Hours) Vital Signs Temp Pulse Pulse Resp BP BP BP 10/05/20 12:01 72 123/79 10/05/20 11:18 36.5 C 72 16 123/79 10/05/20 08:00 83 10/05/20 07:01 36.7 C 70 17 112/76 10/05/20 03:53 36.7 C 68 16 109/74 Pulse Ox 10/05/20 12:01 10/05/20 11:18 96 10/05/20 08:00 10/05/20 07:01 96 10/05/20 03:53 92 Laboratory Results Laboratory Results - last 24 hr 10/04/20 10/04/20 10/04/20 14:56 16:17 20:03 APTT 70.6 H* PTT Ratio 2.7 POC Glucose 159 H 216 H 10/04/20 10/05/20 10/05/20 22:45 01:35 04:41 APTT 66.3 H* PTT Ratio 2.5 POC Glucose 126 H 147 H 10/05/20 10/05/20 10/05/20 05:53 08:31 11:16 APTT 72.7 H* PTT Ratio 2.8 POC Glucose 202 H 175 H Medications Administered Current Inpatient Medications Acetaminophen (Acetaminophen 325 Mg Tab) 650 mg PO Q4H PRN PRN Reason: fever Stop: 10/30/20 23:08 Last Admin: 09/30/20 23:54 Dose: 650 mg Documented by: Amiodarone HCl (Amiodarone 200 Mg Tab) 200 mg PO BIDM [facility] Stop: 11/04/20 16:59 Amiodarone HCl (Amiodarone 200 Mg Tab) 200 mg PO NOW ONE Stop: 10/05/20 14:06 Atorvastatin Calcium (Atorvastatin 40 Mg Tab) 40 mg PO QPM [facility] Stop: 10/28/20 21:25 Last Admin: 10/04/20 20:03 Dose: 40 mg Documented by: Dextrose (Dextrose 50% 50 Ml Syringe) 25 - 50 ml IV UD PRN; Protocol PRN Reason: Hypoglycemia Protocol Stop: 10/29/20 01:29 Glucagon (Glucagon For Inj 1 Mg Vial) 1 mg IM UD PRN; Protocol PRN Reason: Hypoglycemia Protocol Stop: 10/29/20 01:29 Glucose (Glucose 40% Gel 15 Gm Tube) 15 - 30 gm PO UD PRN; Protocol PRN Reason: Hypoglycemia Protocol Stop: 10/29/20 01:29 Glucose (Glucose 10 Tabs/Tube) 4 - 8 tabs PO UD PRN; Protocol PRN Reason: Hypoglycemia Protocol Stop: 10/29/20 01:29 Famotidine 20 mg/ Syringe 5 mls @ 2.5 mls/min IV Q12 [facility] Stop: 10/29/20 11:14 Last Admin: 10/05/20 08:38 Dose: 2.5 mls/min Documented by: Lorazepam (Ativan) 0.25 mg in 0.5 mls @ 0.5 mls/min IV Q1H PRN PRN Reason: agitation Stop: 11/02/20 08:50 Last Admin: 10/04/20 08:33 Dose: 0.5 mls/min Documented by: Levothyroxine Sodium 90 mcg/ (Syringe) 4.5 mls @ 2 mls/min IV Q72H [facility] Stop: 11/05/20 08:59 Insulin Aspart (Insulin Aspart 100 Units/Ml 3 Ml Pen) 0 units SC ACHS [facility]; Protocol Stop: 11/02/20 13:59 Last Admin: 10/05/20 12:27 Dose: 4 units Documented by: Insulin Glargine (Insulin Glargine Solostar 100 Units/Ml 3 Ml Pen) [facility] Protocol Stop: 11/03/20 08:59 Last Admin: 10/05/20 10:08 Dose: 30 units Documented by: Lisinopril (Lisinopril 40 Mg Tab) 40 mg PO DAILY [facility] Stop: 10/29/20 08:59 Last Admin: 10/05/20 08:38 Dose: 40 mg Documented by: Metoprolol Succinate (Metoprolol Succ 50mg Ext Rel Tab) 50 mg PO QAM [facility] Stop: 11/05/20 08:59 Miscellaneous (Carbohydrates For Hypoglycemia ) 15 - 30 gm PO UD PRN PRN Reason: Hypoglycemia Treatment Stop: 10/29/20 01:29 Miscellaneous (Remove Nicoderm Patch) 1 ea N/A DAILY@0859 [facility] Stop: 11/02/20 08:58 Last Admin: 10/05/20 08:35 Dose: 1 ea Documented by: Miscellaneous Information (Pharmacy Glycemic Mgmt Consult) 1 ea N/A UD PRN PRN Reason: Consult Stop: 10/28/20 21:09 Nicotine (Nicotine 21 Mg/24 Hr Tdsy) 21 mg TD QAM [facility] Stop: 11/01/20 17:29 Last Admin: 10/05/20 08:38 Dose: 21 mg Documented by: Quetiapine Fumarate (Quetiapine Fumarate 25 Mg Tablet) 12.5 mg PO BID [facility] Stop: 10/31/20 20:59 Last Admin: 10/05/20 08:39 Dose: 12.5 mg Documented by: Rivaroxaban (Rivaroxaban 20 Mg Tab) 20 mg PO DAILY [facility] Stop: 11/04/20 14:14 Valacyclovir HCl (Valacyclovir Hcl 500 Mg Tablet) 1,000 mg PO TID [facility] Stop: 10/09/20 13:59 Last Admin: 10/05/20 14:00 Dose: 1,000 mg Documented by: PG Care Time/CCT Total # of Minutes Spent Total Time Spent with Patient: Total time spent is greater than 50% in coordination of care (as documented) at patient's floor/unit and/or counseling patient: Coding Level of Care Code 20772 Subseq Hosp Care Lvl 3 Diagnoses Unresponsive episode R41.89 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 E11.641 Hypertension I10 Hypertension type: unspecified Paroxysmal A-fib I48.0 Hyperlipidemia E78.5 Hypothyroidism E03.9 Acute respiratory failure with hypoxemia J96.01 Rash R21 Nicotine abuse Z72.0 (1) Hypertension Hypertension type: unspecified Qualified Code(s): I10 - Essential (primary) hypertension
[2020-10-05] MEDS: RIVAROXABAN 20 MG TAB PO SCH (16:12)
[2020-10-05] MEDS: AMIODARONE 200 MG TAB PO SCH (17:02)
[2020-10-05] MEDS: ATORVASTATIN 40 MG TAB PO SCH (21:00)
[2020-10-06 07:56] LABS: Hematocrit (blood only) 42.5 % (42-52); Mean Corpuscular Hemoglobin 29.8 pg (25-34); Mean Corpuscular Hgb Conc 35.3 g/dL (32-36); Mean Corpuscular Volume 84.5 fL (80-100); Mean Platelet Volume 8.9 fL (7.4-10.4); Platelet Count 185 K/uL (130-400); RDW Coefficient of Variation 12.9 % (11.5-14.5); RDW Standard Deviation 39.3 fL (36.4-46.3); Red Blood Count 5.03 M/uL (4.7-6.1); White Blood Count 6.27 K/uL (4.8-10.8)
[2020-10-06] MEDS: lisinopril 40 MG TAB PO SCH (08:13)
[2020-10-06] MEDS: RIVAROXABAN 20 MG TAB PO SCH (08:13)
[2020-10-06] MEDS: NICOTINE 21 MG/24 HR TDSY TD SCH (08:13)
[2020-10-06] MEDS: METOPROLOL SUCC 50MG EXT REL TAB PO SCH (08:13)
[2020-10-06] MEDS: AMIODARONE 200 MG TAB PO SCH ×2 (08:13→16:55)
[2020-10-06] MEDS: valACYclovir HCL 500 MG TABLET PO SCH ×2 (08:13→13:13)
[2020-10-06] MEDS: FAMOTIDINE 20 MG in SYRINGE 3 ML IV SCH (08:14)
[2020-10-06] MEDS: INSULIN GLARGINE SOLOSTAR 100 UNITS/ML 3 ML PEN SC SCH (08:20)
[2020-10-06] MEDS: INSULIN ASPART 100 UNITS/ML 3 ML PEN SC SCH ×4 (08:21→20:47)
[2020-10-06 08:27] LABS: BUN Creatinine Ratio 13.7 (10-20); Calcium 8.7 mg/dl (8.5-10.1); Creatinine Clr Calc Pharmacy 98.4 ml/min; Est GFR (Non-African American) 90.6 ml/min; Magnesium 1.9 mg/dl (1.8-2.4); Potassium 3.2 mmol/L (3.5-5.1)
[2020-10-06] MEDS ORDERED: LEVOTHYROXINE SODIUM IV SCH (09:00)
--- NOTE | 2020-10-06 12:51 | Pharmacy Report ---
Pharmacy Glycemic Short Note 2 - Date of Service October 06, 2020 - Glycemic Short BSG Results (Last 24 hours): 10/05/20 10/05/20 10/05/20 16:29 20:49 21:17 Glucose POC Glucose 81 62 L* 100 H 10/06/20 10/06/20 10/06/20 07:07 07:21 11:11 Glucose 158 H POC Glucose 153 H 179 H OUTPATIENT ANTIDIABETIC REGIMEN: * Patient unresponsive and not able to confirm the following: * Novolin 70/30, 20 units BID * Metformin * Patient has been found many times in driveway/yard hypoglycemic from too much insulin ASSESSMENT: 10/06/20 * Patient's blood sugars yesterday were 202 (after drinking Boost)- 175-81-62 /100. Episode of hypoglycemia yesterday evening - may be due to decreased PO intake? * Fasting today is 153 mg/dL. * Patient received 42 units of insulin yesterday (30 units of basal and 12 units of bolus). * Since patient's fasting BSG was okay, will continue Lantus 30 units. * Due to BSGs trending down throughout the day, increased CF. 10/04: * BSgs elevated today, both fasting and post prandial. Of note, patient was started on a heparin infusion and amiodarone infusion both mixed in dextrose, which could be contributing. TFs were stopped yesterday afternoon and a diet was ordered. Patient is eating today but intake is minimal. * Will increase basal insulin again today by ~20% and tighten CF for the novolog. Will also add overnight checks and coverage. Background * 65 yo M with T2DM admitted 09/28 after being found unresponsive at home with BSG's in the s. Patient was last known well 09/27 PM therefore duration and extent of hypoglycemia may have been profound. * Ongoing encephalopathy now that BSG's have been corrected - concern for significant cerebral damage from hypoglycemia * Avoidance of repeat hypoglycemia important - mild hyperglycemia reasonable at this time as it is preferable to unintentional repeat hypoglycemia, until current inpatient needs can be better determined * AM BSG now 167 mg/dL after all insulin was held yesterday. Will initiate low- dose Lantus and NovoLog q4h PLAN FOR INPATIENT GLYCEMIC CONTROL: * Hold outpatient oral diabetes medications (metformin) * Basal insulin * Lantus 30 units SQ Q AM. * Bolus insulin * NovoLog per scale q4h * Goal Range: 110-140 mg/dL * Correction Factor: 20 mg/dL/unit * Nutritional / Prandial insulin per carb ratio of 1 unit per 7 grams CHO consumed Outpatient recommendations * agricultural extension educator involvement will be essential if/when patient is alert and oriented enough to discuss outpatient regimen
[2020-10-06] MEDS: ATORVASTATIN 40 MG TAB PO SCH (20:46)
[2020-10-06] MEDS: QUEtiapine FUMARATE 25 MG TABLET PO SCH (20:46)
--- NOTE | 2020-10-06 21:49 | Hospitalist Progress Note ---
Date of Service October 06, 2020 Assessment & Plan (1) Unresponsive episode: Plan: Patient found to be unresponsive and was intubated for airway protection. Patient was extubated 10/02. Patient is more alert each day, encephalopathy appears to be resolving slowly EEG showed encephalopathy but this was a few days ago when more lethargic MRI negative for stroke. appreciate neurology consult, encephalopathy could be result of prolonged time of hypoglycemia Poor prognosis but appears to be getting a little better each day, best day yet today, eating, very alert but still impulsive, needs one to one continue Seroquel 12.5mg HS anticipate he will need rehab, PT/OT ordered (2) 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: Plan: As above. found hypoglycemic with level of BSG 20. sugars have been stable since admission, no hypoglycemic episodes again today (3) Hypertension: Plan: will resume metoprolol 50mg qAM Bp a little high (4) Paroxysmal A-fib: Plan: Patient was in atrial flutter. treated with amiodarone drip and heparin drip due to not taking PO Lopressor 5mg IV q6 now that he can take PO will change to Amiodarone 200mg BID, Xarelto 20mg daily resume Toprol 50mg qAM converted to sinus rhythm on 10/05 move to medical floor today (5) Hyperlipidemia: Plan: resume home meds (6) Hypothyroidism: Plan: resume home meds (7) Acute respiratory failure with hypoxemia: Plan: extubated for several days, breathing comfortably on low flow oxygen (8) Rash: Plan: resolved Valtrex stopped (9) Nicotine abuse: Plan: ordered nicotine patch Admission and Anticipated Discharge Date Admission Date: September 28, 2020 Subjective patient continues to be more alert each day still too impulsive and cannot remember to listen, tried removing one to one and he was getting out of bed will pull means catheter today eating better, no fever/chills, no chest pain, no dyspnea, no cough will move to medical floor as there were no issues on tele Review of Systems Review of Systems: All systems reviewed & are unremarkable except as noted in Subjective Physical Exam Constitutional: WD/WN, vitals as above cooperative and comfortable; no acute distress Neck: trachea midline, no thyromegaly Respiratory: normal respiratory effort, lungs clear to auscultation Cardiovascular: RRR, no murmur, no edema Gastrointestinal (Abdomen): normal bowel sounds, soft, nontender, no hepatosplenomegaly Musculoskeletal: no cyanosis or clubbing, extremities motor strength 5/5 Skin: no rashes, warm and dry Neurologic: CN's II-XI intact bilaterally, moves all extremities and awake; no focal motor deficits Results & Data Results & Data ([facility]) Vital Signs (Past 12 Hours) Vital Signs Temp Pulse Resp BP Pulse Ox 10/06/20 15:18 37.2 C 63 20 152/97 H 95 10/06/20 11:06 36.7 C 73 19 146/88 H 94 Laboratory Results Laboratory Results - last 24 hr 10/06/20 10/06/20 10/06/20 07:07 07: 07:21 WBC 6.27 RBC 5.03 Hgb 15.0 Hct 42.5 MCV 84.5 MCH 29.8 MCHC 35.3 RDW Std Deviation 39.3 RDW Coeff of Robyn 12.9 Plt Count 185 MPV 8.9 Sodium 140 Potassium 3.2 L Chloride 104 Carbon Dioxide 31 Anion Gap 5.0 BUN 12 Creatinine 0.87 Est Cr Clr Drug Dosing 98.4 Est GFR ( Amer) 105.0 Est GFR (Non-Af Amer) 90.6 BUN/Creatinine Ratio 13.7 Glucose 158 H POC Glucose 153 H Calcium 8.7 Magnesium 1.9 10/06/20 10/06/20 10/06/20 11:11 16:16 20:39 WBC RBC Hgb Hct MCV MCH MCHC RDW Std Deviation RDW Coeff of Robyn Plt Count MPV Sodium Potassium Chloride Carbon Dioxide Anion Gap BUN Creatinine Est Cr Clr Drug Dosing Est GFR ( Amer) Est GFR (Non-Af Amer) BUN/Creatinine Ratio Glucose POC Glucose 179 H 279 H 95 Calcium Magnesium Medications Administered Current Inpatient Medications Acetaminophen (Acetaminophen 325 Mg Tab) 650 mg PO Q4H PRN PRN Reason: fever Stop: 10/30/20 23:08 Last Admin: 09/30/20 23:54 Dose: 650 mg Documented by: Amiodarone HCl (Amiodarone 200 Mg Tab) 200 mg PO BIDM [facility] Stop: 11/04/20 16:59 Last Admin: 10/06/20 16:55 Dose: 200 mg Documented by: Atorvastatin Calcium (Atorvastatin 40 Mg Tab) 40 mg PO QPM [facility] Stop: 10/28/20 21:25 Last Admin: 10/06/20 20:46 Dose: 40 mg Documented by: Dextrose (Dextrose 50% 50 Ml Syringe) 25 - 50 ml IV UD PRN; Protocol PRN Reason: Hypoglycemia Protocol Stop: 10/29/20 01:29 Glucagon (Glucagon For Inj 1 Mg Vial) 1 mg IM UD PRN; Protocol PRN Reason: Hypoglycemia Protocol Stop: 10/29/20 01:29 Glucose (Glucose 40% Gel 15 Gm Tube) 15 - 30 gm PO UD PRN; Protocol PRN Reason: Hypoglycemia Protocol Stop: 10/29/20 01:29 Glucose (Glucose 10 Tabs/Tube) 4 - 8 tabs PO UD PRN; Protocol PRN Reason: Hypoglycemia Protocol Stop: 10/29/20 01:29 Lorazepam (Ativan) 0.25 mg in 0.5 mls @ 0.5 mls/min IV Q1H PRN PRN Reason: agitation Stop: 11/02/20 08:50 Last Admin: 10/04/20 08:33 Dose: 0.5 mls/min Documented by: Insulin Aspart (Insulin Aspart 100 Units/Ml 3 Ml Pen) [address] [facility]; Protocol Stop: 11/02/20 13:59 Last Admin: 10/06/20 20:47 Dose: Not Given Documented by: Insulin Glargine (Insulin Glargine Solostar 100 Units/Ml 3 Ml Pen) 30 units SC [facility]; Protocol Stop: 11/03/20 08:59 Last Admin: 10/06/20 08:20 Dose: 30 units Documented by: Levothyroxine Sodium (Levothyroxine Sodium 125 Mcg Tablet) [facility] Stop: 11/06/20 06:29 Lisinopril (Lisinopril 40 Mg Tab) 40 mg PO DAILY [facility] Stop: 10/29/20 08:59 Last Admin: 10/06/20 08:13 Dose: 40 mg Documented by: Metoprolol Succinate (Metoprolol Succ 50mg Ext Rel Tab) 50 mg PO QAM [facility] Stop: 11/05/20 08:59 Last Admin: 10/06/20 08:13 Dose: 50 mg Documented by: Miscellaneous (Carbohydrates For Hypoglycemia ) 15 - 30 gm PO UD PRN PRN Reason: Hypoglycemia Treatment Stop: 10/29/20 01:29 Miscellaneous (Remove Nicoderm Patch) 1 ea N/A DAILY@0859 [facility] Stop: 11/02/20 08:58 Last Admin: 10/06/20 08:14 Dose: 1 ea Documented by: Miscellaneous Information (Pharmacy Glycemic Mgmt Consult) 1 ea N/A UD PRN PRN Reason: Consult Stop: 10/28/20 21:09 Nicotine (Nicotine 21 Mg/24 Hr Tdsy) 21 mg TD QAM [facility] Stop: 11/01/20 17:29 Last Admin: 10/06/20 08:13 Dose: 21 mg Documented by: Quetiapine Fumarate (Quetiapine Fumarate 25 Mg Tablet) 12.5 mg PO HS [facility] Stop: 11/04/20 20:59 Last Admin: 10/06/20 20:46 Dose: 12.5 mg Documented by: Rivaroxaban (Rivaroxaban 20 Mg Tab) 20 mg PO DAILY [facility] Stop: 11/04/20 14:14 Last Admin: 10/06/20 08:13 Dose: 20 mg Documented by: PG Care Time/CCT Total # of Minutes Spent Total Time Spent with Patient: Total time spent is greater than 50% in coordination of care (as documented) at patient's floor/unit and/or counseling patient: Coding Level of Care Code 13114 Subseq Hosp Care Lvl 2 Diagnoses Unresponsive episode R41.89 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 E11.641 Hypertension I10 Hypertension type: unspecified Paroxysmal A-fib I48.0 Hyperlipidemia E78.5 Hypothyroidism E03.9 Acute respiratory failure with hypoxemia J96.01 Rash R21 Nicotine abuse Z72.0 (1) Hypertension Hypertension type: unspecified Qualified Code(s): I10 - Essential (primary) hypertension
[2020-10-07] MEDS: LEVOTHYROXINE SODIUM 125 MCG TABLET PO SCH (04:21)
[2020-10-07] MEDS: LORazepam 0.25 MG/0.5 ML VIAL IV PRN (04:31)
[2020-10-07] MEDS: AMIODARONE 200 MG TAB PO SCH ×2 (08:42→17:25)
[2020-10-07] MEDS: lisinopril 40 MG TAB PO SCH (08:43)
[2020-10-07] MEDS: METOPROLOL SUCC 50MG EXT REL TAB PO SCH (08:43)
[2020-10-07] MEDS: RIVAROXABAN 20 MG TAB PO SCH (08:43)
[2020-10-07] MEDS: NICOTINE 21 MG/24 HR TDSY TD SCH (08:44)
[2020-10-07] MEDS: INSULIN GLARGINE SOLOSTAR 100 UNITS/ML 3 ML PEN SC SCH (08:45)
[2020-10-07] MEDS: INSULIN ASPART 100 UNITS/ML 3 ML PEN SC SCH ×4 (08:46→20:24)
--- NOTE | 2020-10-07 11:52 | Cardiology Progress Note ---
Date of Service October 07, 2020 Assessment & Plan (1) Paroxysmal A-fib: (2) Hypertension: (3) Unresponsive episode: (4) Acute encephalopathy: Plan: Rhythm most likely sinus with atrial ectopy. Although there is a chance he has recurrent atrial fibrillation, this would not change person (rate is controlled and he is anticoagulated). Reduce amiodarone to 200 mg daily at the time of discharge. Agree with addition of metoprolol. Continue rivaroxaban 20 mg daily indefinitely. Continue lisinopril for hypertension, will add low-dose diuretic (hydrochlorothiazide) as outpatient if he remains hypertensive post discharge. Admission and Anticipated Discharge Date Admission Date: September 28, 2020 Subjective He seems to be more alert today. Denies any symptoms, specifically noting no chest pain, dyspnea, subjective palpitations, or lightheadedness. Hemodynamics with mild hypertension and normal heart rate. Physical Exam Physical Exam: No distress. Mildly hypertensive. Pulse 72 bpm and regular with fairly frequent ectopy. Skin: no ecchymoses or generalized lesions. HEENT: unremarkable. Neck: Jugular venous pulse just above the clavicle at 90 degrees, no carotid bruits. Lungs: clear. Cardiac: regular rhythm, 2/6 basal systolic ejection murmur which is nonradiating, 2/6 apical holosystolic murmur rating to the axilla. No diastolic murmur. Abdomen: benign. Extremities: no edema, pulses intact. Neurologic: Awake, answers simple questions, limited insight, grossly nonfocal. Results & Data ([facility]) Vital Signs (Past 12 Hours) Vital Signs Temp Pulse Resp BP Pulse Ox 10/07/20 07:41 97.5 F L 80 18 162/85 H 94 PG Care Time/CCT Total # of Minutes Spent Total Time Spent with Patient: Total time spent is greater than 50% in coordination of care (as documented) at patient's floor/unit and/or counseling patient: Coding Level of Care Code 93316 Subseq Hosp Care Lvl 3 Diagnoses Paroxysmal A-fib I48.0 Unresponsive episode R41.89 Acute encephalopathy G93.40 Hypertension I10 Hypertension type: unspecified (1) Hypertension Hypertension type: unspecified Qualified Code(s): I10 - Essential (primary) hypertension
--- NOTE | 2020-10-07 14:50 | Pharmacy Report ---
Pharmacy Glycemic Short Note 2 - Date of Service October 07, 2020 - Glycemic Short BSG Results (Last 24 hours): 10/06/20 10/06/20 10/07/20 16:16 20:39 08:41 POC Glucose 279 H 95 247 H 10/07/20 12:43 POC Glucose 202 H OUTPATIENT ANTIDIABETIC REGIMEN: * Patient unresponsive and not able to confirm the following: * Novolin 70/30, 20 units BID * Metformin * Patient has been found many times in driveway/yard hypoglycemic from too much insulin ASSESSMENT: 10/07: * Pt received total of 65 units of insulin yesterday; 30 units basal and 35 units bolus. * Fasting BSG today was 247 mg/dl. This was drawn a little later this morning and it is most likely post-prandial. No changes made with basal insulin. * BSG at lunch slightly lower at 202. * Pt's BSG tends to go lower by bedtime, so correction factor loosened at dinner today to prevent hypoglycemia. * Pt did eat a big meal at lunch today with 102 gm of carbs. 10/06/20 * Patient's blood sugars yesterday were 202 (after drinking Boost)- 175-81-62 /100. Episode of hypoglycemia yesterday evening - may be due to decreased PO intake? * Fasting today is 153 mg/dL. * Patient received 42 units of insulin yesterday (30 units of basal and 12 units of bolus). * Since patient's fasting BSG was okay, will continue Lantus 30 units. * Due to BSGs trending down throughout the day, increased CF. 10/04: * BSgs elevated today, both fasting and post prandial. Of note, patient was started on a heparin infusion and amiodarone infusion both mixed in dextrose, which could be contributing. TFs were stopped yesterday afternoon and a diet was ordered. Patient is eating today but intake is minimal. * Will increase basal insulin again today by ~20% and tighten CF for the novolog. Will also add overnight checks and coverage. Background * 65 yo M with T2DM admitted 09/28 after being found unresponsive at home with BSG's in the 20's. Patient was last known well 712 PM therefore duration and extent of hypoglycemia may have been profound. * Ongoing encephalopathy now that BSG's have been corrected - concern for significant cerebral damage from hypoglycemia * Avoidance of repeat hypoglycemia important - mild hyperglycemia reasonable at this time as it is preferable to unintentional repeat hypoglycemia, until current inpatient needs can be better determined * AM BSG now 167 mg/dL after all insulin was held yesterday. Will initiate low- dose Lantus and NovoLog q4h PLAN FOR INPATIENT GLYCEMIC CONTROL: * Hold outpatient oral diabetes medications (metformin) * Basal insulin * Lantus 30 units SQ Q AM. * Bolus insulin: loosened CF * NovoLog per scale q4h * Goal Range: 110-140 mg/dL * Correction Factor: 25 mg/dL/unit * Nutritional / Prandial insulin per carb ratio of 1 unit per 7 grams CHO consumed Outpatient recommendations * tobacco prevention health educator involvement will be essential if/when patient is alert and oriented enough to discuss outpatient regimen * Since patient has reported hypoglycemia at home, recommend changing insulin to Lantus 20 QAM from Novolin 70/30. * Recommend prompt follow up with outpatient provider for dose adjustment of insulin. * Recommend resuming Metformin ER 500 mg PO BID with meals on discharge.
[2020-10-07] MEDS: QUEtiapine FUMARATE 25 MG TABLET PO SCH (20:23)
[2020-10-07] MEDS: ATORVASTATIN 40 MG TAB PO SCH (20:24)
--- NOTE | 2020-10-07 23:06 | Hospitalist Progress Note ---
Date of Service October 07, 2020 Assessment & Plan (1) Unresponsive episode: Plan: Patient found to be unresponsive and was intubated for airway protection. Patient was extubated 10/02. Patient is more alert each day, encephalopathy appears to be resolving slowly EEG showed encephalopathy but this was a few days ago when more lethargic MRI negative for stroke. appreciate neurology consult, encephalopathy could be result of prolonged time of hypoglycemia getting a little better each day, best day yet today, eating, very alert, less impulsive, off of one to one today continue Seroquel 12.5mg HS anticipate he will need rehab, PT/OT ordered, ready for discharge once he has a SNF (2) 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: Plan: As above. found hypoglycemic with level of BSG 20. sugars have been stable since admission, no hypoglycemic episodes for a few days (3) Hypertension: Plan: will resume metoprolol 50mg qAM Bp a little high today (4) Paroxysmal A-fib: Plan: Patient was in atrial flutter. treated with amiodarone drip and heparin drip due to not taking PO Lopressor 5mg IV q6 now that he can take PO will change to Amiodarone 200mg BID, Xarelto 20mg daily resume Toprol 50mg qAM converted to sinus rhythm on 10/05 (5) Hyperlipidemia: Plan: resume home meds (6) Hypothyroidism: Plan: resume home meds (7) Acute respiratory failure with hypoxemia: Plan: extubated for several days, breathing comfortably on low flow oxygen (8) Rash: Plan: resolved Valtrex stopped (9) Nicotine abuse: Plan: ordered nicotine patch Admission and Anticipated Discharge Date Admission Date: September 28, 2020 Subjective patient more alert, actually can remember things that Dr. Rodriges was telling him he is eating better, off one to one PT/OT ordered will try to get to SNF rehab soon Review of Systems Review of Systems: All systems reviewed & are unremarkable except as noted in Subjective Constitutional: no fever and no weakness Respiratory: no cough and no dyspnea Cardiovascular: no chest pain and no edema Gastrointestinal: no abdominal pain, no nausea, no vomiting, no constipation and no diarrhea/loose stools Physical Exam Constitutional: WD/WN, vitals as above cooperative and comfortable; no acute distress Neck: trachea midline, no thyromegaly Respiratory: normal respiratory effort, lungs clear to auscultation Cardiovascular: RRR, no murmur, no edema Gastrointestinal (Abdomen): normal bowel sounds, soft, nontender, no hepatosplenomegaly Musculoskeletal: no cyanosis or clubbing, extremities motor strength 5/5 Skin: no rashes, warm and dry Neurologic: CN's II-XI intact bilaterally, moves all extremities and awake; no focal motor deficits Results & Data Results & Data ([facility]) Vital Signs (Past 12 Hours) Vital Signs Temp Pulse Resp BP Pulse Ox 10/07/20 17:25 36.7 C 74 18 170/82 H 96 Laboratory Results Laboratory Results - last 24 hr 10/07/20 10/07/20 10/07/20 08:41 12:43 17:27 POC Glucose 247 H 202 H 129 H 10/07/20 20:20 POC Glucose 117 H Medications Administered Current Inpatient Medications Acetaminophen (Acetaminophen 325 Mg Tab) 650 mg PO Q4H PRN PRN Reason: fever Stop: 10/30/20 23:08 Last Admin: 09/30/20 23:54 Dose: 650 mg Documented by: Amiodarone HCl (Amiodarone 200 Mg Tab) 200 mg PO BIDM [facility] Stop: 11/04/20 16:59 Last Admin: 10/07/20 17:25 Dose: 200 mg Documented by: Atorvastatin Calcium (Atorvastatin 40 Mg Tab) 40 mg PO QPM [facility] Stop: 10/28/20 21:25 Last Admin: 10/07/20 20:24 Dose: 40 mg Documented by: Dextrose (Dextrose 50% 50 Ml Syringe) 25 - 50 ml IV UD PRN; Protocol PRN Reason: Hypoglycemia Protocol Stop: 10/29/20 01:29 Glucagon (Glucagon For Inj 1 Mg Vial) 1 mg IM UD PRN; Protocol PRN Reason: Hypoglycemia Protocol Stop: 10/29/20 01:29 Glucose (Glucose 40% Gel 15 Gm Tube) 15 - 30 gm PO UD PRN; Protocol PRN Reason: Hypoglycemia Protocol Stop: 10/29/20 01:29 Glucose (Glucose 10 Tabs/Tube) 4 - 8 tabs PO UD PRN; Protocol PRN Reason: Hypoglycemia Protocol Stop: 10/29/20 01:29 Lorazepam (Ativan) 0.25 mg in 0.5 mls @ 0.5 mls/min IV Q1H PRN PRN Reason: agitation Stop: 11/02/20 08:50 Last Admin: 10/07/20 04:31 Dose: 0.5 mls/min Documented by: Insulin Aspart (Insulin Aspart 100 Units/Ml 3 Ml Pen) 0 units SC [facility]; Protocol Stop: 11/02/20 13:59 Last Admin: 10/07/20 20:24 Dose: Not Given Documented by: Insulin Glargine (Insulin Glargine Solostar 100 Units/Ml 3 Ml Pen) 30 units SC [facility]; Protocol Stop: 11/03/20 08:59 Last Admin: 10/07/20 08:45 Dose: 30 units Documented by: Levothyroxine Sodium (Levothyroxine Sodium 125 Mcg Tablet) [facility] Stop: 11/06/20 06:29 Last Admin: 10/07/20 04:21 Dose: 125 mcg Documented by: Lisinopril (Lisinopril 40 Mg Tab) 40 mg PO DAILY [facility] Stop: 10/29/20 08:59 Last Admin: 10/07/20 08:43 Dose: 40 mg Documented by: Metoprolol Succinate (Metoprolol Succ 50mg Ext Rel Tab) 50 mg PO QAM [facility] Stop: 11/05/20 08:59 Last Admin: 10/07/20 08:43 Dose: 50 mg Documented by: Miscellaneous (Carbohydrates For Hypoglycemia ) 15 - 30 gm PO UD PRN PRN Reason: Hypoglycemia Treatment Stop: 10/29/20 01:29 Miscellaneous (Remove Nicoderm Patch) 1 ea N/A DAILY@0859 [facility] Stop: 11/02/20 08:58 Last Admin: 10/07/20 08:44 Dose: 1 ea Documented by: Miscellaneous Information (Pharmacy Glycemic Mgmt Consult) 1 ea N/A UD PRN PRN Reason: Consult Stop: 10/28/20 21:09 Nicotine (Nicotine 21 Mg/24 Hr Tdsy) 21 mg TD [facility] Stop: 11/01/20 17:29 Last Admin: 10/07/20 08:44 Dose: 21 mg Documented by: Quetiapine Fumarate (Quetiapine Fumarate 25 Mg Tablet) 12.5 mg PO HS [facility] Stop: 11/04/20 20:59 Last Admin: 10/07/20 20:23 Dose: 12.5 mg Documented by: Rivaroxaban (Rivaroxaban 20 Mg Tab) 20 mg PO DAILY [facility] Stop: 11/04/20 14:14 Last Admin: 10/07/20 08:43 Dose: 20 mg Documented by: PG Care Time/CCT Total # of Minutes Spent Total Time Spent with Patient: Total time spent is greater than 50% in coordination of care (as documented) at patient's floor/unit and/or counseling patient: Coding Level of Care Code 90133 Subseq Hosp Care Lvl 2 Diagnoses Unresponsive episode R41.89 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 E11.641 Hypertension I10 Hypertension type: unspecified Paroxysmal A-fib I48.0 Hyperlipidemia E78.5 Hypothyroidism E03.9 Acute respiratory failure with hypoxemia J96.01 Rash R21 Nicotine abuse Z72.0 (1) Hypertension Hypertension type: unspecified Qualified Code(s): I10 - Essential (primary) hypertension
[2020-10-08] MEDS: LEVOTHYROXINE SODIUM 125 MCG TABLET PO SCH (05:48)
[2020-10-08] MEDS: lisinopril 40 MG TAB PO SCH (08:43)
[2020-10-08] MEDS: METOPROLOL SUCC 50MG EXT REL TAB PO SCH (08:43)
[2020-10-08] MEDS: NICOTINE 21 MG/24 HR TDSY TD SCH (08:43)
[2020-10-08] MEDS: RIVAROXABAN 20 MG TAB PO SCH (08:43)
[2020-10-08] MEDS: AMIODARONE 200 MG TAB PO SCH (08:44)
[2020-10-08] MEDS: INSULIN ASPART 100 UNITS/ML 3 ML PEN SC SCH ×2 (08:46→13:47)
[2020-10-08] MEDS ORDERED: INSULIN GLARGINE SOLOSTAR 100 UNITS/ML 3 ML PEN SC SCH (09:00)
[2020-10-08 09:24] LABS: Creatinine Clr Calc Pharmacy 92.1 ml/min; Est GFR (African American) 99.5 ml/min; Est GFR (Non-African American) 85.8 ml/min
--- NOTE | 2020-10-08 10:00 | Discharge Summary ---
Date of Service October 08, 2020 Admission HPI Per Admitting Provider Lars is a 65 yo male with PMH: DMII, hyperlipidemia, atrial fib, HTN who comes into the hospital after being found to be unresponsive. Given patient was unresponsive, history was obtained via ER provider. It appears patient did not show up for work and his neighor whn to check in on him. He was found to be unresponsive on the floor. His blod sugar was noted at around 20. He was noted in decorticate posturing. In the ER, patient was intubated and initiated on mechanical ventilation. Patient was admitted to the ICU for continued hemodynamic monitoring as well as management of his endotracheal intubation/mechanical ventilation. Principal Diagnosis Encephalopathy due to prolonged hypoglycemia at home Discharge Exam Constitutional WD/WN, vitals as above cooperative and comfortable; no acute distress Neck trachea midline, no thyromegaly Respiratory normal respiratory effort, lungs clear to auscultation Cardiovascular RRR, no murmur, no edema Gastrointestinal (Abdomen) normal bowel sounds, soft, nontender, no hepatosplenomegaly Musculoskeletal no cyanosis or clubbing, extremities motor strength 5/5 Skin no rashes, warm and dry Neurologic CN's II-XI intact bilaterally, moves all extremities and awake; no focal motor deficits Discharge Data Allergies Allergy/AdvReac Type Severity Reaction Status Date / Time No Known Allergies Allergy Verified 09/28/20 17:01 Consultations 09/28/20 17:31 ED Decision to Admit Stat 09/28/20 18:49 Consult Community Health Nursing Director Routine 09/28/20 21:26 Consult Community Health Nursing Director Routine 09/29/20 00:23 Consult Neurology Routine 10/01/20 12:42 Consult Palliative Care Routine 10/03/20 23:10 Consult Cardiology Routine Ordered Studies 09/28/20 16:52 CT cervical spine wo con Stat CT head/brain wo con Stat 09/28/20 19:39 MR brain wo con Stat Hospital Course (1) Unresponsive episode: Patient found to be unresponsive and was intubated for airway protection. Patient was extubated 10/02. Patient is more alert each day, encephalopathy appears to be resolving, still a little impulsive but follows commands EEG showed encephalopathy but this was when he was more lethargic MRI negative for stroke. appreciate neurology consult, encephalopathy due to prolonged time of hypoglycemia getting a little better each day, best day yet today, eating, very alert, less impulsive, off of one to one observation for 48 hours, no issues continue Seroquel 12.5mg HS for now, helping him sleep, but if he improves to getting home he likely would not need the Seroquel d/c to [facility] for rehab (2) 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: As above. found hypoglycemic with level of BSG 20. sugars have been stable since admission, no hypoglycemic episodes for a few days per pharmacy, recommend changing 70/30 to Lantus 20 units and Metformin ER 500mg BID, could increase to 1000mg BID over time (3) Hypertension: will resume metoprolol 50mg qAM if BP runs higher in clinic could add HCTZ (4) Paroxysmal A-fib: Patient was in atrial flutter/atrial fibrillation treated with amiodarone drip and heparin drip due to not taking PO stable on Amiodarone 200mg BID, Xarelto 20mg daily Toprol 50mg qAM converted to sinus rhythm on 10/05 and has remained for discharge, will decrease Amiodarone to 200mg daily, follow up with cardiology in 3-4 weeks (5) Hyperlipidemia: resume home meds (6) Hypothyroidism: resume home meds (7) Acute respiratory failure with hypoxemia: extubated for several days, breathing comfortably on room air 98% (8) Rash: resolved Valtrex stopped doubt this was Varicella (9) Nicotine abuse: ordered nicotine patch Total Time Total Time Spent Total Time Spent (In Minutes): 32 Discharge Plan Discharge Items Patient Disposition: Transfer [facility] Reason For Visit: Encephalopathy Discharge Diagnosis: Encephalopathy, suspected to be due to prolonged hypoglycemia Atrial fibrillation, paroxysmal Condition on Discharge: Good Goals: improve strength and mobility Activity: Resume your previous activity Weightbearing: Full weightbearing Non-emergency contact: Primary Care Provider Call non-emergency contact if: you have any medication questions Follow-up/Referrals: Reza Victor MD [Physician] - (3-4 weeks, atrial fibrillation) Jg Valdez DO [Primary Care Provider] - (one week after discharge from [facility]) Diet: Carb Consistent or DM2 Addtl Attending Provider Instructions: Medications: - AMIODARONE: 200mg daily, continue to take this until told you can stop by cardiology - LANTUS: 20 units every morning, this replaces the 70/30 that you were taking - SEROQUEL: 12.5mg HS, has been helping him sleep, mental status has been improving, might not need to take this permanently, especially once back home - FALGUNI: has been compliant with patch, continue 14mcg at SNF Encephalopathy: see d/c summary for details, basically thought to be due to prolonged hypoglycemia at home, found unresponsive and down intubated initially for airway protection MRI brain was negative for stroke, bleed slowly improved the past week, now can go to rehab for diabetes, recommend changing from 70/30 to Lantus 20 units qAM and using metformin 500mg ER BID, could increase to 1000mg BID if tolerated Atrial fibrillation: paroxysmal, converted to sinus rhythm, continue Amiodarone 200mg daily, Toprol 50mg, Xarelto follow up with cardiology in 3-4 weeks Pending Studies at Discharge: No Stand-Alone Forms: My [facility] Skilled Items Patient informed of condition?: Yes DNR: No Discharge Level of Care: Acute rehab Communicable Disease: No Discharge Prognosis: Stable Lines: None Urinary Catheter: No Medications and DC Order Prescriptions: New amiodarone 200 mg Tablet 200 mg PO DAILY Qty: 30 RF: 1 quetiapine 25 mg Tablet 12.5 mg PO HS 14 Days Qty: 7 RF: 0 Lantus Solostar U-100 Insulin 100 unit/mL (3 mL) Insulin Pen 20 unit SC QAM Qty: 3 RF: 3 nicotine [Nicoderm CQ] 14 mg/24 hr patch 24 hour 1 patch transdermal DAILY Qty: 14 RF: 0 Continued levothyroxine 125 mcg tablet 125 mcg PO DAILY Qty: 30 RF: 11 Xarelto 20 mg tablet 20 mg PO DAILY@1800 30 Days Qty: 30 RF: 5 metformin 500 mg tablet extended release 24hr 500 mg PO BID Qty: 60 RF: 5 lisinopril 40 mg tablet 40 mg PO DAILY Qty: 30 RF: 11 atorvastatin 40 mg tablet 40 mg PO QPM Qty: 30 RF: 5 atorvastatin 40 mg tablet 40 mg PO QPM RF: 0 metoprolol succinate 100 mg tablet extended release 24 hr 50 mg PO DAILY RF: 0 trazodone 50 mg tablet 50 mg PO HS PRN (Reason: Sleep) RF: 0 Discontinued Novolin 70/30 U-100 Insulin 100 unit/mL (70-30) suspension 20 unit subcut BID Qty: 20 RF: 5 Discharge Orders: Discharge Order (Routine); Ordered 10/08/20 Ordered By: Kaushal Castaneda Admission Data Admit Date/Time: 09/28/20 18:49 Attending Provider: Kaushal Castaneda Admit Provider: Rush Garcia Primary Care Provider: Jg Valdez Other Providers: Syd Garcia ; [facility] ; Rush Garcia ; Syd Warner ; Catarina Parikh ; Reza Victor Coding Level of Care Code D/C DAY MANAGEMENT >30 MINS Diagnoses Unresponsive episode R41.89 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 E11.641 Hypertension I10 Hypertension type: unspecified Paroxysmal A-fib I48.0 Hyperlipidemia E78.5 Hypothyroidism E03.9 Acute respiratory failure with hypoxemia J96.01 Rash R21 Nicotine abuse Z72.0
--- NOTE | 2020-10-19 13:29 | Coding Query ---
CODING QUERY To promote full compliance with coding requirements relating to patient care, provider participation is requested in all cases of stitcher standard machine uncertainty. Please assist us with the question(s) below: Coding Question(s): Per critical care documentation, patient has "Metabolic Encephalopathy." Per other documentation, patient has "Encephalopathy, NOS." Please clarify below: ( x) Patient with Metabolic Encephalopathy, due to hypoglycemia ( ) Patient with Encephalopathy, NOS ( ) Other Please Explain: Thank you Bandar Sierra Principal Diagnosis: "that condition established after study, to be chiefly responsible for occasioning the admission of the patient to the hospital for care." Co-Existing Principal Diagnosis: "when two or more diagnoses equally meet the criteria for principal diagnosis as determined by the circumstances of admission, diagnostic work up, and/or therapy provided, and the Alphabetic Index, Tabular List, or another coding guideline does not provide sequencing direction, any one of the diagnoses may be sequenced first." "When the physician has documented what appears to be a current diagnosis in the body of the record, but has not included the diagnosis in the final diagnostic statement, the physician should be asked whether the diagnosis should be added." (Source Coding Clinic 2 QTR90. p3-4) KHOI
== END 2020-10-08 16:21 | DRG 637 ==
LOC: ED 16:30 → 1E 18:49 → SUATTDRO 18:49 → 1E 20:23 → 2S 10-01 15:22 → 2E 10-02 11:03 → 2S 10-05 13:33 → 3W 10-06 17:39

== ENCOUNTER 2021-04-18 10:28 | Inpatient (IN) ==
[2021-04-18] MEDS ORDERED: SODIUM CHLORIDE 0.9% 500 ML IV SCH (11:15)
--- NOTE | 2021-04-18 11:18 | Emergency Department Note ---
Impression & Plan Weakness, Fall, Hypomagnesemia, COVID-19 ED Provider Note NAME: HEBER ADAIR AGE: 66 SEX: M : 1955 ARRIVES VIA: Ambulance INFORMANT: [Patient][nursing, ems] ED PROVIDER(S): [Brenton Hamilton MD] CHIEF COMPLAINT: Fall, weakness HISTORY OF PRESENT ILLNESS: The patient is a 66-year-old male with some mild cognitive impairment. He does have A. fib and is on Xarelto. He states he has been in baseline health. This morning, he felt quite weak and slid off of his bed. No injuries. He was sent for evaluation. The patient denies any headache or neck pain or chest pain. There has been no fever or cough. No urinary complaints. No vomiting or diarrhea. He states he just feels weak, it is a generalized weakness, not one-sided. REVIEW OF SYSTEMS: See HPI for pertinent positives and negatives. A total of ten systems were reviewed and were otherwise negative. PMHx/PSHx: See Below SOCIAL HISTORY: See Below. PHYSICAL EXAM: GENERAL: Patient is in no acute distress. HEENT: No acute trauma, normocephalic atraumatic, mucous membranes moist, no nasal congestion, no scleral icterus. Poor dentition with multiple missing teeth. There is chewing tobacco on his lips and gums. NECK: No stridor, no adenopathy, no meningismus, trachea is midline. LUNGS: Clear to auscultation bilaterally when listening anterior, no wheeze, no rhonchi, breath sounds equal. HEART: Without murmurs gallops or rubs, regular rate and rhythm. ABDOMEN: Soft, nontender, bowel sounds positive, no hernias, no peritonitis. EXTREMITIES: No cyanosis or edema, full range of motion of all the joints without pain or difficulty, no signs for acute trauma. NEUROLOGIC: Awake and alert, no facial droop, no extremity drift or cerebellar dysfunction, no acute motor or sensory deficits, no focal weakness. SKIN: No rash, no jaundice, no diaphoresis. DIFFERENTIAL DIAGNOSIS: Infection, dehydration, COVID-19, UTI, intracranial bleeding, metabolic abnorm ality, hypo/hyperglycemia, electrolyte disturbance, anemia, hypoxia, cardiac sources, intracerebral event, toxicologic issues, stroke, TIA, as well as other pathologies. EMERGENCY DEPARTMENT COURSE/PROCEDURES: ECG: Indication was weakness. The ECG shows a normal sinus rhythm with a rate of 79. There is a right bundle branch block. There is no ST elevation, no PVCs. The QTC is 516. Continuous Cardiac Monitoring: An order was placed for continuous cardiac monitoring. The monitor shows a rate of 70 with normal sinus rhythm. MEDICAL DECISION MAKING: There is no leukocytosis or concerning anemia. There is a normal platelet count. D-dimer is not elevated making PE less likely. No kidney failure. Magnesium was low at 1.3. No worrisome liver enzyme elevation. The patient appears to be in a euthyroid state. ECG shows a normal sinus rhythm, no obvious acute ischemia. Cardiac enzyme testing x1 is not consistent with acute cardiac injury. Chest x-ray does not show pneumonia or CHF. Covid testing returned positive. Brain CT shows no acute bleed or mass-effect. Urinalysis is pending- the patient refused a cath urine. The patient received IV saline 500 cc. He was given IV magnesium. The patient presents with weakness and a fall. He cannot walk or stand on his own. He has a very low magnesium and is Covid positive. I suspect these 2 together have led to his weakness. The patient is not stable for discharge back to his care facility. He requires magnesium replacement, some strengthening and monitoring. I did speak with case management, I talked to the patient. The on-call hospitalist was consulted. Past Med/Surg History Medical History Collapse Cough History of alcoholism History of prostate cancer Hyperlipidemia Hypoglycemia Hypothyroidism Insomnia Nausea Nicotine abuse Seborrheic dermatitis of scalp Sore throat Unresponsive episode Vitamin D deficiency Surgical History History of left knee surgery History of shoulder surgery Family History Mother Cancer Grandmother (Paternal) Stroke Grandfather (Paternal) Stroke Other Myocardial infarction Denies family history of Ovarian cancer Prostate cancer Breast cancer Colorectal cancer Social History Smoking Status: Former smoker Tobacco Type: Smokeless Tobacco (Dip or Chew) Second Hand Exposure: No; Hx Alcohol Use: Yes Hx Substance Use: No Preferred Language: Gambian Communication Ability: Effective 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 Beliefs That Will Affect Care: None marital status: Single Current Living Situation: Alone and Personal Care Facility current occupational status: retired current occupation: [employer] How many Children do You have: 0 Feels Safe at Home: Yes Childhood Exposure to Second-Hand Smoke: Yes caffeine: Yes (iced tea ) Dental Care, Regularly: No Physical Activity Frequency: Does not Exercise Seatbelt Use: always Sunscreen Use: No Assistive Devices: Glasses Allergies Allergies Allergy/AdvReac Type Severity Reaction Status Date / Time No Known Allergies Allergy Verified 04/18/21 11:23 Home Meds Home Medications Medication Instructions Recorded Confirmed acetaminophen 325 mg capsule 325 mg PO Q6H PRN 11/18/20 04/18/21 quetiapine 25 mg tablet 12.5 mg PO HS PRN 11/18/20 04/18/21 insulin glargine 100 unit/mL (3 15 unit SUBCUT BID 04/18/21 04/18/21 mL) subcutaneous pen (Lantus Solostar U-100 Insulin) metformin 500 mg tablet,extended 500 mg PO BIDM 04/18/21 04/18/21 release 24hr metoprolol tartrate 25 mg tablet 25 mg PO BIDM 04/18/21 04/18/21 rivaroxaban 20 mg tablet (Xarelto) 20 mg PO HS 04/18/21 04/18/21 Previous Rx's Medication Instructions Recorded levothyroxine 125 mcg tablet 125 mcg PO DAILY #30 tab 12/14/20 lisinopril 40 mg tablet 40 mg PO DAILY #30 tab 12/14/20 atorvastatin 40 mg tablet 40 mg PO QPM #90 tab 12/27/20 insulin aspart U-100 100 unit/mL See Rx Instructions .ROUTE 02/17/21 (3 mL) subcutaneous pen (Novolog .COMPLEX #15 ml Flexpen U-100 Insulin aspart) Wheeled Walker #1 ea 03/21/21 triamterene 37.5 1 tab PO DAILY #90 tab 04/14/21 mg-hydrochlorothiazide 25 mg tablet Results & Data (ED) Vital Signs Vital Signs - 24 hr 04/18/21 10:34 04/18/21 10:40 04/18/21 12:50 Temperature 36.6 C Temperature Source Oral Pulse Rate 74 70 Pulse Rate [Apical] 70 65 Pulse Rhythm [Apical] Regular Respiratory Rate 21 15 Respiratory Effort / Characteristics Non-Labored Respiratory Depth Normal Respiratory Pattern Regular Blood Pressure 139/99 Blood Pressure [Right Arm] 139/99 158/90 H Blood Pressure Mean 112 Blood Pressure Mean [Right Arm] 112 112 Blood Pressure Position Sitting Blood Pressure Position [Right Arm] Sitting Pulse Oximetry 96 96 100 Oxygen Delivery Method Room Air Room Air Sepsis Recent Fever Within 48 Hours No Sepsis New/Unexplained Change in Mental Status No Sepsis Action Taken by Nursing No Action Required 04/18/21 14:14 Temperature Temperature Source Pulse Rate Pulse Rate [Apical] 69 Pulse Rhythm [Apical] Respiratory Rate 13 Respiratory Effort / Characteristics Respiratory Depth Respiratory Pattern Blood Pressure Blood Pressure [Right Arm] 168/86 H Blood Pressure Mean Blood Pressure Mean [Right Arm] 113 Blood Pressure Position Blood Pressure Position [Right Arm] Pulse Oximetry 98 Oxygen Delivery Method Room Air Sepsis Recent Fever Within 48 Hours Sepsis New/Unexplained Change in Mental Status Sepsis Action Taken by Long Term Medications Current Medication List: was personally reviewed by me Laboratory Data Attestation: I reviewed the patient's lab results. Result diagrams: 04/18/21 Unknown 04/18/21 Unknown Lab Results 04/18/21 04/18/21 04/18/21 Range/Units 11:26 11:40 13:49 WBC (4.8-10.8) K/uL RBC (4.7-6.1) M/uL Hgb (14.0-18.0) g/dL Hct (42-52) % MCV (80-100) fL MCH (25-34) pg MCHC (32-36) g/dL RDW Std Deviation (36.4-46.3) fL RDW Coeff of Robyn (11.5-14.5) % Plt Count (130-400) K/uL MPV (7.4-10.4) fL Immature Gran % (Auto) % Neut % (Auto) % Lymph % (Auto) % Norton % (Auto) % Eos % (Auto) % Baso % (Auto) % Neut # (Auto) (1.4-6.5) K/uL Lymph # (Auto) (1.2-3.4) K/uL Norton # (Auto) (0.11-0.59) K/uL Eos # (Auto) (0-0.5) K/uL Baso # (Auto) (0-0.2) K/uL Immature Gran # (Auto) (0.00-0.02) K/uL D-Dimer 350 (0-500) ug/L FEU Sodium (136-145) mmol/L Potassium (3.5-5.1) mmol/L Chloride (98-107) mmol/L Carbon Dioxide (21-32) mmol/L Anion Gap (3-11) BUN (6-23) mg/dl Creatinine (0.6-1.4) mg/dl Est Cr Clr Drug Dosing ml/min Est GFR ( Amer) ml/min Est GFR (Non-Af Amer) ml/min BUN/Creatinine Ratio (10-20) Glucose (70-99(Fasting)) mg/dl Calcium (8.5-10.1) mg/dl Magnesium (1.7-2.4) mg/dl Total Bilirubin (0.2-1.0) mg/dl AST (13-39) U/L ALT (7-52) U/L Alkaline Phosphatase (34-104) U/L Troponin I (0-0.04) ng/ml C-Reactive Protein < 0.50 (0-0.5) mg/dl Total Protein (6.0-8.3) gm/dl Albumin (3.4-5.0) gm/dl Globulin (2.5-4.0) gm/dl Albumin/Globulin Ratio (0.9-2) TSH (0.300-4.500) uIu/ml SARS-CoV-2, RNA, NAAT POSITIVE A* (NEGATIVE) 04/18/21 04/18/21 04/18/21 Range/Units Unknown Unknown Unknown WBC 6.05 (4.8-10.8) K/uL RBC 4.74 (4.7-6.1) M/uL Hgb 14.7 (14.0-18.0) g/dL Hct 41.4 L (42-52) % MCV 87.3 (80-100) fL MCH 31.0 (25-34) pg MCHC 35.5 (32-36) g/dL RDW Std Deviation 42.4 (36.4-46.3) fL RDW Coeff of Robyn 13.2 (11.5-14.5) % Plt Count 153 (130-400) K/uL MPV 9.3 (7.4-10.4) fL Immature Gran % (Auto) 0.0 % Neut % (Auto) 77.0 % Lymph % (Auto) 10.4 % Norton % (Auto) 12.1 % Eos % (Auto) 0.3 % Baso % (Auto) 0.2 % Neut # (Auto) 4.66 (1.4-6.5) K/uL Lymph # (Auto) 0.63 L (1.2-3.4) K/uL Norton # (Auto) 0.73 H (0.11-0.59) K/uL Eos # (Auto) 0.02 (0-0.5) K/uL Baso # (Auto) 0.01 (0-0.2) K/uL Immature Gran # (Auto) 0.00 (0.00-0.02) K/uL D-Dimer (0-500) ug/L FEU Sodium 137 (136-145) mmol/L Potassium 3.6 (3.5-5.1) mmol/L Chloride 102 (98-107) mmol/L Carbon Dioxide 27 (21-32) mmol/L Anion Gap 8 (3-11) BUN 16 (6-23) mg/dl Creatinine 0.86 (0.6-1.4) mg/dl Est Cr Clr Drug Dosing 93.9 ml/min Est GFR ( Amer) 104.7 ml/min Est GFR (Non-Af Amer) 90.4 ml/min BUN/Creatinine Ratio 18.6 (10-20) Glucose 291 H (70-99(Fasting)) mg/dl Calcium 8.8 (8.5-10.1) mg/dl Magnesium 1.3 L (1.7-2.4) mg/dl Total Bilirubin 1.1 H (0.2-1.0) mg/dl AST 16 (13-39) U/L ALT 15 (7-52) U/L Alkaline Phosphatase 95 (34-104) U/L Troponin I < 0.03 (0-0.04) ng/ml C-Reactive Protein (0-0.5) mg/dl Total Protein 6.5 (6.0-8.3) gm/dl Albumin 3.9 (3.4-5.0) gm/dl Globulin 2.6 (2.5-4.0) gm/dl Albumin/Globulin Ratio 1.5 (0.9-2) TSH 1.943 (0.300-4.500) uIu/ml SARS-CoV-2, RNA, NAAT (NEGATIVE) Administered Medications Discontinued Medications Sodium Chloride (Nss) 500 mls @ 999 mls/hr IV .Q31M JOSELITO Stop: 04/18/21 11:45 Last Infusion: 04/18/21 12:53 Dose: 0 mls/hr Documented by: [id number] Admin: 04/18/21 11:25 Dose: 999 mls/hr Documented by: [id number] Magnesium Sulfate/Dextrose (Magnesium Sulfate / D5w) 1 gm in 100 mls @ 100 mls/hr IV Q1H JOSELITO Stop: 04/18/21 14:23 Last Admin: 04/18/21 14:03 Dose: 100 mls/hr Documented by: [id number] Infusion: 04/18/21 13:49 Dose: 100 mls/hr Documented by: [id number] Admin: 04/18/21 12:49 Dose: 100 mls/hr Documented by: [id number] Imaging Data Radiologist's Impression: Chest X-Ray 04/18/21 11:13 XR chest 1V portable CLINICAL HISTORY: weakness. Evaluate cardiopulmonary status COMPARISON STUDY: 09/30/2020 TECHNIQUE: 1 view of the chest FINDINGS: Single frontal view of the chest demonstrates the cardiomediastinal silhouette to be within normal limits. There is a decreased inspiratory effort with elevation of the hemidiaphragms and crowding of the bronchovascular markings at the lung bases and centrally. The lungs are clear of alveolar opacities. There is no evidence for pleural effusion. There is no evidence for vascular congestion. There is no acute osseous pathology. IMPRESSION: There is a decreased inspiratory effort with otherwise no acute chest disease. ACT 112: Negative or not required by law. Electronically signed by: Murali Franco M.D. 04/18/2021 11:[address] 04/18/21 11:[address] DOSE: 1730.28 mGycm HISTORY: weakness, fall TECHNIQUE: Multiaxial CT images of the head were performed without the use of intravenous contrast. Automated exposure control was utilized for this study. A dose lowering technique was utilized adhering to the principles of ALARA. Comparison: Head CT 09/28/2020. Findings: The paranasal sinuses and mastoid air cells are clear. The calvarium and skull base are intact. There is no mass, hematoma, midline shift, acute infarct. White matter hypodensity is nonspecific but suggestive of microvascular ischemic change. The ventricles and sulci demonstrate mild age-related involutional changes. Old lacunar infarcts seen within the left basal ganglia. Impression: No acute intracranial abnormality. ACT 112: Negative or not required by law. Electronically signed by: José Miguel Aldridge M.D. 04/18/2021 1:22 PM Discharge Plan Visit Data Chief Complaint: Fall ED Provider: Brenton Hamilton Discharge Problem: Weakness, Fall, Hypomagnesemia, COVID-19 Patient Disposition: Admitted As Inpatient Condition: Fair Forms Stand Alone Forms: My [facility] [employer] Prescriptions Prescriptions: No Action lisinopril 40 mg tablet 40 mg PO DAILY Qty: 30 RF: 11 levothyroxine 125 mcg tablet 125 mcg PO DAILY Qty: 30 RF: 11 atorvastatin 40 mg tablet 40 mg PO QPM Qty: 90 RF: 3 insulin aspart U-100 [Novolog Flexpen U-100 Insulin] 100 unit/mL (3 mL) insulin pen See Rx Instructions .ROUTE .COMPLEX Qty: 15 RF: 5 (DME) Wheeled Walker Misc See Rx Instructions .Route Qty: 1 RF: 0 quetiapine 25 mg tablet 12.5 mg PO HS PRN (Reason: Psychosis) RF: 0 acetaminophen 325 mg capsule 325 mg PO Q6H PRN (Reason: Pain) RF: 0 triamterene-hydrochlorothiazid 37.5-25 mg tablet 1 tab PO DAILY Qty: 90 RF: 3 metoprolol tartrate 25 mg tablet 25 mg PO BIDM RF: 0 metformin 500 mg tablet extended release 24hr 500 mg PO BIDM RF: 0 Lantus Solostar U-100 Insulin 100 unit/mL (3 mL) insulin pen 15 unit subcut BID RF: 0 Xarelto 20 mg tablet 20 mg PO HS RF: 0 Referrals Referrals: Jg Valdez DO [Primary Care Provider] -
--- NOTE | 2021-04-18 11:42 | XRay Report ---
XR chest 1V portable CLINICAL HISTORY: weakness. Evaluate cardiopulmonary status COMPARISON STUDY: 09/30/2020 TECHNIQUE: 1 view of the chest FINDINGS: Single frontal view of the chest demonstrates the cardiomediastinal silhouette to be within normal li mits. There is a decreased inspiratory effort with elevation of the hemidiaphragms and crowding of th e bronchovascular markings at the lung bases and centrally. The lungs are clear of alveolar opacities . There is no evidence for pleural effusion. There is no evidence for vascular congestion. There is n o acute osseous pathology. IMPRESSION: There is a decreased inspiratory effort with otherwise no acute chest disease. ACT 112: Negative or not required by law. Electronically signed by: Murali Franco M.D. 04/18/2021 11:40 AM
[2021-04-18 11:44] LABS: Basophils # (auto) 0.01 K/uL (0-0.2); Basophils % (auto) 0.2 %; Eosinophils # (auto) 0.02 K/uL (0-0.5); Eosinophils % (auto) 0.3 %; Hematocrit (blood only) 41.4 % (42-52); Hemoglobin 14.7 g/dL (14.0-18.0); Lymphocytes # (auto) 0.63 K/uL (1.2-3.4); Lymphocytes % (auto) 10.4 %; Mean Corpuscular Hgb Conc 35.5 g/dL (32-36); Mean Corpuscular Volume 87.3 fL (80-100); Mean Platelet Volume 9.3 fL (7.4-10.4); Monocytes # (auto) 0.73 K/uL (0.11-0.59); Monocytes % (auto) 12.1 %; Neutrophils # (auto) 4.66 K/uL (1.4-6.5); Platelet Count 153 K/uL (130-400); RDW Coefficient of Variation 13.2 % (11.5-14.5); RDW Standard Deviation 42.4 fL (36.4-46.3); Red Blood Count 4.74 M/uL (4.7-6.1); White Blood Count 6.05 K/uL (4.8-10.8)
[2021-04-18 12:14] LABS: Troponin I < 0.03 ng/ml (0-0.04)
[2021-04-18 12:20] LABS: Alanine Aminotransferase 15 U/L (7-52); Albumin Globulin Ratio 1.5 (0.9-2); Albumin Level 3.9 gm/dl (3.4-5.0); Alkaline Phosphatase 95 U/L (34-104); Anion Gap 8 (3-11); Aspartate Aminotransferase 16 U/L (13-39); BUN Creatinine Ratio 18.6 (10-20); Bilirubin,Total 1.1 mg/dl (0.2-1.0); Blood Urea Nitrogen 16 mg/dl (6-23); Calcium 8.8 mg/dl (8.5-10.1); Carbon Dioxide 27 mmol/L (21-32); Chloride 102 mmol/L (98-107); Creatinine Clr Calc Pharmacy 93.9 ml/min; Est GFR (African American) 104.7 ml/min; Est GFR (Non-African American) 90.4 ml/min; Globulin 2.6 gm/dl (2.5-4.0); Glucose 291 mg/dl (70-99(Fasting)); Magnesium 1.3 mg/dl (1.7-2.4); Potassium 3.6 mmol/L (3.5-5.1); Sodium 137 mmol/L (136-145); Total Protein 6.5 gm/dl (6.0-8.3)
[2021-04-18] MEDS: MAGNESIUM SULFATE / D5W 1 GM/100 ML BAG IV SCH ×2 (12:49→14:03)
--- NOTE | 2021-04-18 13:24 | CT Scan Report ---
HEAD CT NONCONTRAST CT DOSE: 1730.28 mGycm HISTORY: weakness, fall TECHNIQUE: Multiaxial CT images of the head were performed without the use of intravenous contrast. A utomated exposure control was utilized for this study. A dose lowering technique was utilized adheri ng to the principles of ALARA. Comparison: Head CT 09/28/2020. Findings: The paranasal sinuses and mastoid air cells are clear. The calvarium and skull base are int act. There is no mass, hematoma, midline shift, acute infarct. White matter hypodensity is nonspecifi c but suggestive of microvascular ischemic change. The ventricles and sulci demonstrate mild age-rela juvenal involutional changes. Old lacunar infarcts seen within the left basal ganglia. Impression: No acute intracranial abnormality. ACT 112: Negative or not required by law. Electronically signed by: José Miguel Aldridge M.D. 04/18/2021 1:22 PM
[2021-04-18 14:24] LABS: D Dimer 350 ug/L FEU (0-500)
--- NOTE | 2021-04-18 14:38 | History & Physical Report ---
Date of Service April 18, 2021 Assessment & Plan (1) Weakness: Plan: Suspect generalized weakness may be secondary to COVID-19 infection await input from neurology for further recommendations COVID positive, as noted below UA c+s pending PT/OT evaluation (2) COVID-19: Plan: Likely major cause of the patient's weakness As he is not hypoxic, no need to start Covid directed medications. 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 Work with PT/OT as noted fall precautions (4) Hypertension: Plan: Continue antihypertensives including lisinopril 40 mg daily and Dyazide 37.5/25 (5) Paroxysmal A-fib: Plan: Per recent cardiology notes, patient was very recently taken off of his amiodarone He is on Xarelto, okay to continue this (6) Hyperlipidemia: Plan: Continue atorvastatin 40 mg daily (7) Hypothyroidism: Plan: Continue levothyroxine 125 mcg daily (8) Controlled type 2 diabetes mellitus, with long-term current use of insulin: Plan: Okay to continue Metformin for now Patient is on glargine insulin and sliding scale with meals, will continue both of these History of Present Illness Chief Complaint: weakness Primary Care Provider: Jg Valdez, This is a 66-year-old male with past medical history of mild cognitive impairment/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 Patient is pleasant good historian. Patient tells me that he lives in [facility]. He typically ambulates with a walker. He follows with cardiology for his atrial fibrillation along with neurology. Patient denies any recent illness and specifically denies any shortness of breath/SUE, fever or chills, nausea or vomiting, or other issues. 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 However, he woke up this morning and tried to ambulate out of bed. He states that he was able to get his feet to the floor but then fell. He was down approximately 45 minutes until he was found by staff. He is a little limited in the course of events after this, does not recall having his blood sugar taken or what other measures may have been done. He was eventually sent to the hospital via ambulance as a possible stroke alert. Neurology did evaluate the patient although their documentation is not yet available. I did discuss with the ER physician who told me that the patient did get an evaluation it was not felt that he had a new CVA. However, he did test positive for Covid and it was felt that the patient's generalized weakness was secondary to this. I did discuss with the patient, he tells me he has been vaccinated but again is denying any respiratory symptoms. Patient is now being admitted for further work-up and PT/OT for generalized weakness. Allergies Allergy/AdvReac Type Severity Reaction Status Date / Time No Known Allergies Allergy Verified 04/18/21 11:23 Home Medications Medication Instructions Recorded Confirmed Type acetaminophen 325 mg capsule 325 mg PO Q6H PRN 11/18/20 04/18/21 History quetiapine 25 mg tablet 12.5 mg PO HS PRN 11/18/20 04/18/21 History levothyroxine 125 mcg tablet 125 mcg PO DAILY #30 tab 12/14/20 04/18/21 Rx lisinopril 40 mg tablet 40 mg PO DAILY #30 tab 12/14/20 04/18/21 Rx atorvastatin 40 mg tablet 40 mg PO QPM #90 tab 12/27/20 04/18/21 Rx insulin aspart U-100 100 unit/mL See Rx Instructions .ROUTE 02/17/21 04/18/21 Rx (3 mL) subcutaneous pen (Novolog .COMPLEX #15 ml Flexpen U-100 Insulin aspart) Wheeled Walker #1 ea 03/21/21 04/14/21 Rx triamterene 37.5 1 tab PO DAILY #90 tab 04/14/21 04/18/21 Rx mg-hydrochlorothiazide 25 mg tablet insulin glargine 100 unit/mL (3 15 unit SUBCUT BID 04/18/21 04/18/21 History mL) subcutaneous pen (Lantus Solostar U-100 Insulin) metformin 500 mg tablet,extended 500 mg PO BIDM 04/18/21 04/18/21 History release 24hr metoprolol tartrate 25 mg tablet 25 mg PO BIDM 04/18/21 04/18/21 History rivaroxaban 20 mg tablet (Xarelto) 20 mg PO HS 04/18/21 04/18/21 History Past Med/Surg History Medical History Collapse Cough History of alcoholism History of prostate cancer Hyperlipidemia Hypoglycemia Hypothyroidism Insomnia Nausea Nicotine abuse Seborrheic dermatitis of scalp Sore throat Unresponsive episode Vitamin D deficiency Surgical History History of left knee surgery History of shoulder surgery Family History Mother Cancer Grandmother (Paternal) Stroke Grandfather (Paternal) Stroke Other Myocardial infarction Denies family history of Ovarian cancer Prostate cancer Breast cancer Colorectal cancer Social History Smoking Status: Former smoker Tobacco Type: Smokeless Tobacco (Dip or Chew) Second Hand Exposure: No; Hx Alcohol Use: Yes Hx Substance Use: No Preferred Language: Korean Communication Ability: Effective 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 Beliefs That Will Affect Care: None marital status: Single Current Living Situation: Alone and Personal Care Facility current occupational status: retired current occupation: [employer] How many Children do You have: 0 Feels Safe at Home: Yes Childhood Exposure to Second-Hand Smoke: Yes caffeine: Yes (iced tea ) Dental Care, Regularly: No Physical Activity Frequency: Does not Exercise Seatbelt Use: always Sunscreen Use: No Assistive Devices: Glasses Review of Systems Constitutional: no fever, no chills, no weakness, no weight loss and no weight gain Eyes: as per Subjective / HPI Respiratory: no cough, no chest congestion, no dyspnea and no dyspnea on exertion Cardiovascular: no chest pain, no orthopnea, no palpitations, no lightheadedness and no edema Gastrointestinal: no abdominal pain, no nausea, no vomiting, no constipation and no diarrhea/loose stools Musculoskeletal: no back pain, no neck pain, no joint pain, no stiffness and no myalgia Integumentary: no rash Neurologic: + gait abnormality, + unsteadiness, + falls and + generalized weakness; no localized weakness, no abnormal movements, no headache(s) and no abnormal speech Physical Exam Constitutional: cooperative; no acute distress ENMT: poor dentition Neck: trachea midline, no thyromegaly Respiratory: normal respiratory effort Auscultation: lungs clear to auscultation bilaterally; no crackles, no rales, no rhonchi and no wheezes Cardiovascular: Rate/Rhythm: regular rate and regular rhythm Heart Sounds: normal S1 and normal S2 Gastrointestinal (Abdomen): Inspection/Auscultation: abdomen normal to inspection Percussion/Palpation: abdomen soft; abdomen nontender, no guarding, abdomen not rigid and no hepatosplenomegaly Skin: no rashes, warm and dry Results & Data Results & Data ([facility]) Vital Signs (Past 12 Hours) Vital Signs Temp Pulse Pulse Resp BP BP Pulse Ox 04/18/21 14:14 69 13 168/86 H 98 04/18/21 12:50 65 15 158/90 H 100 04/18/21 10:40 36.6 C 70 70 21 139/99 139/99 96 04/18/21 10:34 74 96 PG Care Time/CCT Total # of Minutes Spent Total Time Spent with Patient: Total time spent is greater than 50% in coordination of care (as documented) at patient's floor/unit and/or counseling patient: Coding Level of Care Code 85779 Initial Inpt Care Lvl 3 Diagnoses Weakness R53.1 Gait apraxia R48.2 Hypertension I10 Hypertension type: unspecified Paroxysmal A-fib I48.0 Hyperlipidemia E78.5 Hypothyroidism E03.9 COVID-19 U07.1 Controlled type 2 diabetes mellitus, with long-term current use of insulin E11.9; Z79.4 (1) Hypertension Hypertension type: unspecified Qualified Code(s): I10 - Essential (primary) hypertension
--- NOTE | 2021-04-18 15:29 | Electrocardiogram Report ---
Test Reason : Blood Pressure : / mmHG Vent. Rate : 079 BPM Atrial Rate : 079 BPM P-R Int : 202 ms QRS Dur : 140 ms QT Int : 450 ms P-R-T Axes : 066 -30 -04 degrees QTc Int : 516 ms Normal sinus rhythm Left axis deviation Right bundle branch block Abnormal ECG When compared with ECG of 03-OCT-2020 14:25, Sinus rhythm has replaced Atrial fibrillation Vent. rate has decreased BY 54 BPM Left anterior fascicular block is no longer Present Confirmed by Reza Victor ([id number]) on 04/18/2021 3:29:02 PM Referred By: REFERRED SELF Confirmed By:Reza Victor
[2021-04-18] MEDS ORDERED: NON-FORMULARY MEDICATION (Acetaminophen 325 mg capsule) PO PRN (16:23)
[2021-04-18] MEDS ORDERED: ACETAMINOPHEN 325 MG TAB PO PRN (16:23)
[2021-04-18] MEDS ORDERED: QUEtiapine FUMARATE 25 MG TABLET PO PRN (16:23)
[2021-04-18] MEDS ORDERED: ONDANSETRON INJ 2 MG/ML 2 ML VIAL IV PRN (16:23)
[2021-04-18] MEDS: INSULIN ASPART PER UNIT SC SCH ×2 (17:19→20:06)
[2021-04-18] MEDS: METOPROLOL TARTRATE 25 MG TAB PO SCH (17:19)
[2021-04-18] MEDS: RIVAROXABAN 20 MG TAB PO SCH (19:47)
[2021-04-18] MEDS: ATORVASTATIN 40 MG TAB PO SCH (19:47)
[2021-04-18] MEDS: INSULIN GLARGINE SOLOSTAR 100 UNITS/ML 3 ML PEN SQ SCH (20:06)
[2021-04-19] MEDS: LEVOTHYROXINE SODIUM 125 MCG TABLET PO SCH (05:32)
[2021-04-19 06:54] LABS: Appearance Urine Clear (Clear); Bilirubin Urine Negative (Negative); Blood Urine Negative (Negative); Color Urine Yellow; Glucose Urine UA Trace (Negative); Ketones Urine Trace (Negative); Leukocyte Esterase Urine Negative (Negative); Nitrite Urine Negative (Negative); Protein Urine Negative (Negative); Specific Gravity Urine 1.015 (1.000-1.030); Urobilinogen Urine Negative (Negative); pH Urine 5.5 (4.5-7.5)
[2021-04-19 07:08] LABS: Basophils # (auto) 0.02 K/uL (0-0.2); Basophils % (auto) 0.5 %; Eosinophils # (auto) 0.05 K/uL (0-0.5); Eosinophils % (auto) 1.2 %; Hematocrit (blood only) 39.8 % (42-52); Hemoglobin 14.1 g/dL (14.0-18.0); Lymphocytes # (auto) 1.55 K/uL (1.2-3.4); Lymphocytes % (auto) 37.4 %; Mean Corpuscular Hemoglobin 31.1 pg (25-34); Mean Corpuscular Hgb Conc 35.4 g/dL (32-36); Mean Corpuscular Volume 87.9 fL (80-100); Mean Platelet Volume 9.9 fL (7.4-10.4); Monocytes # (auto) 0.65 K/uL (0.11-0.59); Monocytes % (auto) 15.7 %; Neutrophils # (auto) 1.87 K/uL (1.4-6.5); Neutrophils % (auto) 45.2 %; Platelet Count 150 K/uL (130-400); RDW Coefficient of Variation 13.2 % (11.5-14.5); RDW Standard Deviation 42.6 fL (36.4-46.3); Red Blood Count 4.53 M/uL (4.7-6.1); White Blood Count 4.14 K/uL (4.8-10.8)
[2021-04-19 07:33] LABS: Albumin Globulin Ratio 1.4 (0.9-2); Albumin Level 3.5 gm/dl (3.4-5.0); BUN Creatinine Ratio 14.1 (10-20); Bilirubin,Total 1.1 mg/dl (0.2-1.0); Calcium 8.3 mg/dl (8.5-10.1); Creatinine Clr Calc Pharmacy 93.9 ml/min; Est GFR (African American) 105.2 ml/min; Est GFR (Non-African American) 90.8 ml/min; Globulin 2.5 gm/dl (2.5-4.0); Magnesium 1.6 mg/dl (1.7-2.4); Potassium 3.1 mmol/L (3.5-5.1)
[2021-04-19] MEDS: INSULIN GLARGINE SOLOSTAR 100 UNITS/ML 3 ML PEN SQ SCH ×2 (07:56→22:07)
[2021-04-19] MEDS: lisinopril 40 MG TAB PO SCH (07:56)
[2021-04-19] MEDS: METOPROLOL TARTRATE 25 MG TAB PO SCH ×2 (07:57→15:55)
[2021-04-19] MEDS: TRIAMTERENE/HCTZ 37.5/25MG TAB PO SCH (07:57)
[2021-04-19] MEDS: INSULIN ASPART PER UNIT SC SCH ×5 (08:19→22:12)
[2021-04-19] MEDS: MAGNESIUM SULFATE / D5W 1 GM/100 ML BAG IV SCH ×2 (09:27→11:01)
[2021-04-19] MEDS: POTASSIUM CHLORIDE CRTAB 20 MEQ TABCR PO SCH ×2 (09:29→19:55)
--- NOTE | 2021-04-19 11:09 | Hospitalist Progress Note ---
Date of Service April 19, 2021 Assessment & Plan (1) Weakness: Plan: Suspect generalized weakness may be secondary to COVID-19 infection feeling much better today, did well with PT, ambulated with RW awaiting OT evaluation can go to [facility], will see about getting him there tomorrow (2) COVID-19: Plan: Likely major cause of the patient's weakness As he is not hypoxic, no need to start Covid directed medications. 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 Work with PT/OT : did well with PT, can go back to [facility], plan for tomorrow (4) Hypertension: Plan: Continue antihypertensives including lisinopril 40 mg daily and Dyazide 37.5/25 (5) Paroxysmal A-fib: Plan: Per recent cardiology notes, patient was very recently taken off of his amiodarone He is on Xarelto, okay to continue this (6) Hyperlipidemia: Plan: Continue atorvastatin 40 mg daily (7) Hypothyroidism: Plan: Continue levothyroxine 125 mcg daily (8) Controlled type 2 diabetes mellitus, with long-term current use of insulin: Plan: Okay to continue Metformin for now Patient is on glargine insulin and sliding scale with meals, will continue both of these Plan: get OT evaluation work towards discharge back to [facility] tomorrow Admission and Anticipated Discharge Date Admission Date: April 18, 2021 Subjective patient doing well today, he says he feels stronger, not sure what happened yesterday he was able to walk with PT, did well, scored 18, recommended return to [facility] still waiting on OT report RN said he had some issues with urinating this morning, required straight cath breathing well on room air, saturations are stable, no symptoms of COVID Review of Systems Review of Systems: All systems reviewed & are unremarkable except as noted in Subjective Constitutional: no fever Respiratory: no cough, no dyspnea and no dyspnea on exertion Cardiovascular: no chest pain and no edema Musculoskeletal: + muscle weakness; no back pain and no joint pain Physical Exam Physical Exam: General: well developed, well nourished, no acute distress, comfortable Neck: supple, trachea midline, normal thyroid Lungs: clear to auscultation bilaterally, normal respiratory effort, no accessory muscle use, no distress Heart: regular S1 and S2, no murmur, peripheral pulses normal, capillary refill normal, no edema Abdomen: soft, NT, ND, + BS, no hepatomegaly, normal to percussion Extremities: normal in appearance, no cyanosis, no petechiae, strength is 5/5 bilaterally Neuro: awake, cooperative, moves all extremities, no focal motor deficits, CN II-XII intact, sensation in extremities intact, normal speech Skin: warm, dry, no rash, normal turgor Psych: Awake, alert oriented x 3, euthymic affect Results & Data Results & Data ([place]) Vital Signs (Past 12 Hours) Vital Signs Temp Pulse Resp BP BP Pulse Ox 04/19/21 07:25 37.0 C 62 18 136/92 97 04/19/21 02:09 36.5 C 47 L 16 116/74 96 04/18/21 23:10 36.9 C 50 L 18 132/79 97 Laboratory Results Laboratory Results - last 24 hr 04/18/21 04/18/21 04/18/21 11:40 13:49 16:26 WBC RBC Hgb Hct MCV MCH MCHC RDW Std Deviation RDW Coeff of Robyn Plt Count MPV Immature Gran % (Auto) Neut % (Auto) Lymph % (Auto) [place] % (Auto) Eos % (Auto) Baso % (Auto) Neut # (Auto) Lymph # (Auto) [place] # (Auto) Eos # (Auto) Baso # (Auto) Immature Gran # (Auto) D-Dimer 350 Sodium Potassium Chloride Carbon Dioxide Anion Gap BUN Creatinine Est Cr Clr Drug Dosing Est GFR ( Amer) Est GFR (Non-Af Amer) BUN/Creatinine Ratio Glucose POC Glucose 278 H Calcium Magnesium Total Bilirubin AST ALT Alkaline Phosphatase C-Reactive Protein < 0.50 Total Protein Albumin Globulin Albumin/Globulin Ratio Urine Color Urine Appearance Urine pH Ur Specific [place] Urine Protein Urine Glucose (UA) Urine Ketones Urine Blood Urine Nitrite Urine Bilirubin Urine Urobilinogen Ur Leukocyte Esterase Nasal Screen MRSA (PCR) 04/18/21 04/18/21 04/19/21 17:36 19:50 05:49 WBC 4.14 L RBC 4.53 L Hgb 14.1 Hct 39.8 L MCV 87.9 MCH 31.1 MCHC 35.4 RDW Std Deviation 42.6 RDW Coeff of Robyn 13.2 Plt Count 150 MPV 9.9 Immature Gran % (Auto) 0.0 Neut % (Auto) 45.2 Lymph % (Auto) 37.4 [place] % (Auto) 15.7 Eos % (Auto) 1.2 Baso % (Auto) 0.5 Neut # (Auto) 1.87 Lymph # (Auto) 1.55 [place] # (Auto) 0.65 H Eos # (Auto) 0.05 Baso # (Auto) 0.02 Immature Gran # (Auto) 0.00 D-Dimer Sodium Potassium Chloride Carbon Dioxide Anion Gap BUN Creatinine Est Cr Clr Drug Dosing Est GFR ( Amer) Est GFR (Non-Af Amer) BUN/Creatinine Ratio Glucose POC Glucose 135 H Calcium Magnesium Total Bilirubin AST ALT Alkaline Phosphatase C-Reactive Protein Total Protein Albumin Globulin Albumin/Globulin Ratio Urine Color Urine Appearance Urine pH Ur Specific [place] Urine Protein Urine Glucose (UA) Urine Ketones Urine Blood Urine Nitrite Urine Bilirubin Urine Urobilinogen Ur Leukocyte Esterase Nasal Screen MRSA (PCR) Negative 04/19/21 04/19/21 04/19/21 05:49 06:11 07:32 WBC RBC Hgb Hct MCV MCH MCHC RDW Std Deviation RDW Coeff of Robyn Plt Count MPV Immature Gran % (Auto) Neut % (Auto) Lymph % (Auto) [place] % (Auto) Eos % (Auto) Baso % (Auto) Neut # (Auto) Lymph # (Auto) [place] # (Auto) Eos # (Auto) Baso # (Auto) Immature Gran # (Auto) D-Dimer Sodium 138 Potassium 3.1 L Chloride 103 Carbon Dioxide 26 Anion Gap 9 BUN 12 Creatinine 0.85 Est Cr Clr Drug Dosing 93.9 Est GFR ( Amer) 105.2 Est GFR (Non-Af Amer) 90.8 BUN/Creatinine Ratio 14.1 Glucose 134 H POC Glucose 134 H Calcium 8.3 L Magnesium 1.6 L Total Bilirubin 1.1 H AST 18 ALT 15 Alkaline Phosphatase 87 C-Reactive Protein Total Protein 6.0 Albumin 3.5 Globulin 2.5 Albumin/Globulin Ratio 1.4 Urine Color Yellow Urine Appearance Clear Urine pH 5.5 Ur Specific [place] 1.015 Urine Protein Negative Urine Glucose (UA) Trace H Urine Ketones Trace H Urine Blood Negative Urine Nitrite Negative Urine Bilirubin Negative Urine Urobilinogen Negative Ur Leukocyte Esterase Negative Nasal Screen MRSA (PCR) 04/19/21 11:31 WBC RBC Hgb Hct MCV MCH MCHC RDW Std Deviation RDW Coeff of Robyn Plt Count MPV Immature Gran % (Auto) Neut % (Auto) Lymph % (Auto) [place] % (Auto) Eos % (Auto) Baso % (Auto) Neut # (Auto) Lymph # (Auto) [place] # (Auto) Eos # (Auto) Baso # (Auto) Immature Gran # (Auto) D-Dimer Sodium Potassium Chloride Carbon Dioxide Anion Gap BUN Creatinine Est Cr Clr Drug Dosing Est GFR ( Amer) Est GFR (Non-Af Amer) BUN/Creatinine Ratio Glucose POC Glucose 202 H Calcium Magnesium Total Bilirubin AST ALT Alkaline Phosphatase C-Reactive Protein Total Protein Albumin Globulin Albumin/Globulin Ratio Urine Color Urine Appearance Urine pH Ur Specific [place] Urine Protein Urine Glucose (UA) Urine Ketones Urine Blood Urine Nitrite Urine Bilirubin Urine Urobilinogen Ur Leukocyte Esterase Nasal Screen MRSA (PCR) Medications Administered Current Inpatient Medications Acetaminophen (Acetaminophen 325 Mg Tab) 650 mg PO Q4H PRN PRN Reason: Pain or Fever Stop: 05/18/21 16:22 Atorvastatin Calcium (Atorvastatin 40 Mg Tab) 40 mg PO QPM [facility] Stop: 05/18/21 20:59 Last Admin: 04/18/21 19:47 Dose: 40 mg Documented by: Insulin Aspart (Insulin Aspart Per Unit) 0 units SC ACHS [facility] Stop: 05/18/21 16:59 Last Admin: 04/19/21 12:20 Dose: 7 units Documented by: Insulin Glargine (Insulin Glargine Solostar 100 Units/Ml 3 Ml Pen) 15 units SQ BID [facility] Stop: 05/18/21 20:59 Last Admin: 04/19/21 07:56 Dose: 15 units Documented by: Levothyroxine Sodium (Levothyroxine Sodium 125 Mcg Tablet) 125 mcg PO DAILYBB [facility] Stop: 05/19/21 06:29 Last Admin: 04/19/21 05:32 Dose: 125 mcg Documented by: Lisinopril (Lisinopril 40 Mg Tab) 40 mg PO DAILY [facility] Stop: 05/19/21 08:59 Last Admin: 04/19/21 07:56 Dose: 40 mg Documented by: Metoprolol Tartrate (Metoprolol Tartrate 25 Mg Tab) 25 mg PO BIDM [facility] Stop: 05/18/21 16:59 Last Admin: 04/19/21 07:57 Dose: 25 mg Documented by: Ondansetron HCl (Ondansetron Inj 2 Mg/Ml 2 Ml Vial) 4 mg IV Q6H PRN PRN Reason: Nausea Stop: 05/18/21 16:22 Potassium Chloride (Potassium Chloride Crtab 20 Meq Tabcr) 20 meq PO BID [facility] Stop: 05/19/21 08:59 Last Admin: 04/19/21 09:29 Dose: 20 meq Documented by: Quetiapine Fumarate (Quetiapine Fumarate 25 Mg Tablet) 12.5 mg PO HS PRN PRN Reason: Psychosis Stop: 05/18/21 16:22 Rivaroxaban (Rivaroxaban 20 Mg Tab) 20 mg PO HS [facility] Stop: 05/18/21 20:59 Last Admin: 04/18/21 19:47 Dose: 20 mg Documented by: Triamterene/Hydrochlorothiazide (Triamterene/Hctz 37.5/25mg Tab) 1 tab PO DAILY [facility] Stop: 05/19/21 08:59 Last Admin: 04/19/21 07:57 Dose: 1 tab Documented by: PG Care Time/CCT Total # of Minutes Spent Total Time Spent with Patient: Total time spent is greater than 50% in coordination of care (as documented) at patient's floor/unit and/or counseling patient: Coding Level of Care Code 42974 Subseq Hosp Care Lvl 2 Diagnoses Weakness R53.1 COVID-19 U07.1 Gait apraxia R48.2 Hypertension I10 Hypertension type: unspecified Paroxysmal A-fib I48.0 Hyperlipidemia E78.5 Hypothyroidism E03.9 Controlled type 2 diabetes mellitus, with long-term current use of insulin E11.9; Z79.4 (1) Hypertension Hypertension type: unspecified Qualified Code(s): I10 - Essential (primary) hypertension
[2021-04-19] MEDS: RIVAROXABAN 20 MG TAB PO SCH (19:55)
[2021-04-19] MEDS: ATORVASTATIN 40 MG TAB PO SCH (19:55)
[2021-04-20] MEDS: LEVOTHYROXINE SODIUM 125 MCG TABLET PO SCH (05:43)
[2021-04-20] MEDS: TRIAMTERENE/HCTZ 37.5/25MG TAB PO SCH (08:23)
[2021-04-20] MEDS: POTASSIUM CHLORIDE CRTAB 20 MEQ TABCR PO SCH ×2 (08:23→20:30)
[2021-04-20] MEDS: METOPROLOL TARTRATE 25 MG TAB PO SCH ×2 (08:24→16:35)
[2021-04-20] MEDS: lisinopril 40 MG TAB PO SCH (08:24)
[2021-04-20] MEDS: INSULIN ASPART PER UNIT SC SCH ×4 (08:50→20:32)
[2021-04-20] MEDS: INSULIN GLARGINE SOLOSTAR 100 UNITS/ML 3 ML PEN SQ SCH ×2 (08:50→20:31)
[2021-04-20 10:08] LABS: Hematocrit (blood only) 42.4 % (42-52); Hemoglobin 15.4 g/dL (14.0-18.0); Mean Corpuscular Hemoglobin 31.9 pg (25-34); Mean Corpuscular Hgb Conc 36.3 g/dL (32-36); Mean Corpuscular Volume 87.8 fL (80-100); Mean Platelet Volume 9.5 fL (7.4-10.4); Platelet Count 163 K/uL (130-400); RDW Coefficient of Variation 13.1 % (11.5-14.5); Red Blood Count 4.83 M/uL (4.7-6.1); White Blood Count 5.52 K/uL (4.8-10.8)
[2021-04-20 10:37] LABS: BUN Creatinine Ratio 15.1 (10-20); Calcium 8.5 mg/dl (8.5-10.1); Creatinine Clr Calc Pharmacy 91.8 ml/min; Est GFR (African American) 104.7 ml/min; Est GFR (Non-African American) 90.4 ml/min; Magnesium 1.6 mg/dl (1.7-2.4); Potassium 3.4 mmol/L (3.5-5.1)
[2021-04-20] MEDS ORDERED: GLUCOSE 10 TABS/TUBE PO PRN (15:15)
[2021-04-20] MEDS ORDERED: GLUCAGON FOR INJ 1 MG VIAL IM PRN (15:15)
[2021-04-20] MEDS ORDERED: DEXTROSE 50% 50 ML SYRINGE IV PRN (15:15)
[2021-04-20] MEDS ORDERED: GLUCOSE 40% GEL 15 GM TUBE PO PRN (15:15)
[2021-04-20] MEDS ORDERED: CARBOHYDRATES FOR HYPOGLYCEMIA PO PRN (15:15)
--- NOTE | 2021-04-20 17:00 | Hospitalist Progress Note ---
Date of Service April 20, 2021 Assessment & Plan (1) Weakness: Plan: Suspect generalized weakness may be secondary to COVID-19 infection did well on 04/19 with PT, did not do as well today, 04/20, with OT, unable to ambulate independently not strong enough to return to [facility] today (2) COVID-19: Plan: Likely major cause of the patient's weakness As he is not hypoxic, no need to start Covid directed medications. 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 Work with PT/OT : did well with PT on 04/19 but not with OT on 04/20 (4) Hypertension: Plan: Continue antihypertensives including lisinopril 40 mg daily and Dyazide 37.5/25 (5) Paroxysmal A-fib: Plan: Per recent cardiology notes, patient was very recently taken off of his amiodarone He is on Xarelto, okay to continue this (6) Hyperlipidemia: Plan: Continue atorvastatin 40 mg daily (7) Hypothyroidism: Plan: Continue levothyroxine 125 mcg daily (8) Controlled type 2 diabetes mellitus, with long-term current use of insulin: Plan: Okay to continue Metformin for now Patient is on glargine insulin and sliding scale with meals, will continue both of these no hypoglycemia Plan: try to improve strength to get back to [facility] Admission and Anticipated Discharge Date Admission Date: April 18, 2021 Subjective patient did not do as well with therapy today he was unable to walk to the bathroom with assistance at baseline he puts on his own socks and ambulates independently in his room he remains stable on room air, eating and drinking well K is 3.4 and Mag is 1.6, otherwise labs stable Review of Systems Review of Systems: All systems reviewed & are unremarkable except as noted in Subjective Musculoskeletal: + muscle weakness Neurologic: + unsteadiness and + generalized weakness Physical Exam Physical Exam: General: well developed, well nourished, no acute distress, comfortable Neck: supple, trachea midline, normal thyroid Lungs: clear to auscultation bilaterally, normal respiratory effort, no accessory muscle use, no distress Heart: regular S1 and S2, no murmur, peripheral pulses normal, capillary refill normal, no edema Abdomen: soft, NT, ND, + BS, no hepatomegaly, normal to percussion Extremities: normal in appearance, no cyanosis, no petechiae, strength is 5/5 bilaterally Neuro: awake, cooperative, moves all extremities, no focal motor deficits, CN II-XII intact, sensation in extremities intact, normal speech Skin: warm, dry, no rash, normal turgor Psych: Awake, alert oriented x 3, euthymic affect Results & Data Results & Data ([facility]) Vital Signs (Past 12 Hours) Vital Signs Temp Pulse Pulse Resp BP Pulse Ox Pulse Ox 04/20/21 16:34 57 L 04/20/21 15:07 36.8 C 50 L 18 114/74 97 04/20/21 11:21 96 04/20/21 10:55 36.8 C 53 L 18 135/84 97 04/20/21 10:11 94 04/20/21 08:20 99 H 04/20/21 08:00 53 L 04/20/21 07:13 36.6 C 58 L 18 128/83 96 Laboratory Results Laboratory Results - last 24 hr 04/19/21 04/19/21 04/20/21 19:53 22:05 07:21 WBC RBC Hgb Hct MCV MCH MCHC RDW Std Deviation RDW Coeff of Robyn Plt Count MPV Sodium Potassium Chloride Carbon Dioxide Anion Gap BUN Creatinine Est Cr Clr Drug Dosing Est GFR ( Amer) Est GFR (Non-Af Amer) BUN/Creatinine Ratio Glucose POC Glucose 174 H 145 H 127 H Calcium Magnesium 04/20/21 04/20/21 04/20/21 09:47 09:47 11:16 WBC 5.52 RBC 4.83 Hgb 15.4 Hct 42.4 MCV 87.8 MCH 31.9 MCHC 36.3 H RDW Std Deviation 43.0 RDW Coeff of Robyn 13.1 Plt Count 163 MPV 9.5 Sodium 135 L Potassium 3.4 L Chloride 100 Carbon Dioxide 28 Anion Gap 7 BUN 13 Creatinine 0.86 Est Cr Clr Drug Dosing 91.8 Est GFR ( Amer) 104.7 Est GFR (Non-Af Amer) 90.4 BUN/Creatinine Ratio 15.1 Glucose 237 H POC Glucose 224 H Calcium 8.5 Magnesium 1.6 L 04/20/21 16:25 WBC RBC Hgb Hct MCV MCH MCHC RDW Std Deviation RDW Coeff of Robyn Plt Count MPV Sodium Potassium Chloride Carbon Dioxide Anion Gap BUN Creatinine Est Cr Clr Drug Dosing Est GFR ( Amer) Est GFR (Non-Af Amer) BUN/Creatinine Ratio Glucose POC Glucose 97 Calcium Magnesium Medications Administered Current Inpatient Medications Acetaminophen (Acetaminophen 325 Mg Tab) 650 mg PO Q4H PRN PRN Reason: Pain or Fever Stop: 05/18/21 16:22 Atorvastatin Calcium (Atorvastatin 40 Mg Tab) 40 mg PO QPM [facility] Stop: 05/18/21 20:59 Last Admin: 04/19/21 19:55 Dose: 40 mg Documented by: Dextrose (Dextrose 50% 50 Ml Syringe) 25 - 50 ml IV UD PRN; Protocol PRN Reason: Hypoglycemia Protocol Stop: 05/20/21 15:14 Glucagon (Glucagon For Inj 1 Mg Vial) 1 mg IM UD PRN; Protocol PRN Reason: Hypoglycemia Protocol Stop: 05/20/21 15:14 Glucose (Glucose 40% Gel 15 Gm Tube) 15 - 30 gm PO UD PRN; Protocol PRN Reason: Hypoglycemia Protocol Stop: 05/20/21 15:14 Glucose (Glucose 10 Tabs/Tube) 4 - 8 tabs PO UD PRN; Protocol PRN Reason: Hypoglycemia Protocol Stop: 05/20/21 15:14 Insulin Aspart (Insulin Aspart Per Unit) 0 units SC ACHS [facility] Stop: 05/18/21 16:59 Last Admin: 04/20/21 12:50 Dose: 7 units Documented by: Insulin Glargine (Insulin Glargine Solostar 100 Units/Ml 3 Ml Pen) 15 units SQ BID [facility] Stop: 05/18/21 20:59 Last Admin: 04/20/21 08:50 Dose: 15 units Documented by: Levothyroxine Sodium (Levothyroxine Sodium 125 Mcg Tablet) 125 mcg PO DAILYBB [facility] Stop: 05/19/21 06:29 Last Admin: 04/20/21 05:43 Dose: 125 mcg Documented by: Lisinopril (Lisinopril 40 Mg Tab) 40 mg PO DAILY [facility] Stop: 05/19/21 08:59 Last Admin: 04/20/21 08:24 Dose: 40 mg Documented by: Metoprolol Tartrate (Metoprolol Tartrate 25 Mg Tab) 25 mg PO BIDM [facility] Stop: 05/18/21 16:59 Last Admin: 04/20/21 16:35 Dose: Not Given Documented by: Miscellaneous (Carbohydrates For Hypoglycemia ) 15 - 30 gm PO UD PRN PRN Reason: Hypoglycemia Treatment Stop: 05/20/21 15:14 Ondansetron HCl (Ondansetron Inj 2 Mg/Ml 2 Ml Vial) 4 mg IV Q6H PRN PRN Reason: Nausea Stop: 05/18/21 16:22 Potassium Chloride (Potassium Chloride Crtab 20 Meq Tabcr) 20 meq PO BID [facility] Stop: 05/19/21 08:59 Last Admin: 04/20/21 08:23 Dose: 20 meq Documented by: Quetiapine Fumarate (Quetiapine Fumarate 25 Mg Tablet) 12.5 mg PO HS PRN PRN Reason: Psychosis Stop: 05/18/21 16:22 Last Admin: 04/20/21 08:24 Dose: 12.5 mg Documented by: Rivaroxaban (Rivaroxaban 20 Mg Tab) 20 mg PO HS [facility] Stop: 05/18/21 20:59 Last Admin: 04/19/21 19:55 Dose: 20 mg Documented by: Triamterene/Hydrochlorothiazide (Triamterene/Hctz 37.5/25mg Tab) 1 tab PO DAILY [facility] Stop: 05/19/21 08:59 Last Admin: 04/20/21 08:23 Dose: 1 tab Documented by: PG Care Time/CCT Total # of Minutes Spent Total Time Spent with Patient: Total time spent is greater than 50% in coordination of care (as documented) at patient's floor/unit and/or counseling patient: Coding Level of Care Code 29877 Subseq Hosp Care Lvl 2 Diagnoses Weakness R53.1 COVID-19 U07.1 Gait apraxia R48.2 Hypertension I10 Hypertension type: unspecified Paroxysmal A-fib I48.0 Hyperlipidemia E78.5 Hypothyroidism E03.9 Controlled type 2 diabetes mellitus, with long-term current use of insulin E11.9; Z79.4 (1) Hypertension Hypertension type: unspecified Qualified Code(s): I10 - Essential (primary) hypertension
[2021-04-20] MEDS: RIVAROXABAN 20 MG TAB PO SCH (20:30)
[2021-04-20] MEDS: ATORVASTATIN 40 MG TAB PO SCH (20:30)
[2021-04-20] MEDS ORDERED: METOPROLOL TARTRATE 1 MG/ML VIAL IV PRN (22:44)
[2021-04-21] MEDS: LEVOTHYROXINE SODIUM 125 MCG TABLET PO SCH (06:14)
[2021-04-21] MEDS: METOPROLOL TARTRATE 25 MG TAB PO SCH ×2 (08:21→17:52)
[2021-04-21] MEDS: lisinopril 40 MG TAB PO SCH (08:22)
[2021-04-21] MEDS: TRIAMTERENE/HCTZ 37.5/25MG TAB PO SCH (08:22)
[2021-04-21] MEDS: POTASSIUM CHLORIDE CRTAB 20 MEQ TABCR PO SCH ×2 (08:22→20:04)
[2021-04-21] MEDS: INSULIN ASPART PER UNIT SC SCH ×4 (08:23→20:23)
[2021-04-21] MEDS: INSULIN GLARGINE SOLOSTAR 100 UNITS/ML 3 ML PEN SQ SCH ×2 (08:24→20:23)
--- NOTE | 2021-04-21 11:36 | Hospitalist Progress Note ---
Date of Service April 21, 2021 Assessment & Plan (1) Weakness: Plan: Suspect generalized weakness due to COVID-19 infection did well on 04/19 with PT, did not do as well on 04/20, with OT, unable to ambulate independently not strong enough to return to [facility] at this time even today he was 2 person assist to get into his chair, only 2 steps from bed reviewed outpatient neurology records, he has gait apraxia and cognitive impairment, unclear etiology, MRI has shown no stroke he follows with Dr. Warner (2) COVID-19: Plan: Likely major cause of the patient's weakness As he is not hypoxic, no need to start Covid directed medications. 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 Work with PT/OT : did well with PT on 04/19 but not with OT on 04/20 (4) Hypertension: Plan: Continue antihypertensives including lisinopril 40 mg daily and Dyazide 37.5/25 (5) Paroxysmal A-fib: Plan: Per recent cardiology notes, patient was very recently taken off of his amiodarone He is on Xarelto, okay to continue this (6) Hyperlipidemia: Plan: Continue atorvastatin 40 mg daily (7) Hypothyroidism: Plan: Continue levothyroxine 125 mcg daily (8) Controlled type 2 diabetes mellitus, with long-term current use of insulin: Plan: Okay to continue Metformin for now Patient is on glargine insulin and sliding scale with meals, will continue both of these no hypoglycemia Plan: try to improve strength to get back to [facility] Admission and Anticipated Discharge Date Admission Date: April 18, 2021 Subjective patient says he feels fine, he is breathing well, eating well, no fever he continues to be quite weak and has ataxic gait, needed 2 person moderate assist to get into chair, I helped the RN his gait is very unsteady, normally uses a rolling walking called to updated his POA Review of Systems Review of Systems: All systems reviewed & are unremarkable except as noted in Subjective Musculoskeletal: + muscle weakness Neurologic: + gait abnormality, + unsteadiness and + generalized weakness Physical Exam Physical Exam: General: well developed, well nourished, no acute distress, comfortable Neck: supple, trachea midline, normal thyroid Lungs: clear to auscultation bilaterally, normal respiratory effort, no accessory muscle use, no distress Heart: regular S1 and S2, no murmur, peripheral pulses normal, capillary refill normal, no edema Abdomen: soft, NT, ND, + BS, no hepatomegaly, normal to percussion Extremities: normal in appearance, no cyanosis, no petechiae, strength is 5/5 bilaterally Neuro: awake, cooperative, moves all extremities, no focal motor deficits, CN II-XII intact, sensation in extremities intact, normal speech Skin: warm, dry, no rash, normal turgor Psych: Awake, alert oriented x 3, euthymic affect Results & Data Results & Data ([facility]) Vital Signs (Past 12 Hours) Vital Signs Temp Pulse Pulse Resp BP Pulse Ox 04/21/21 08:03 55 L 04/21/21 07:17 36.3 C L 52 L 16 129/77 98 04/21/21 05:02 60 04/21/21 03:25 36.5 C 60 20 130/56 L 95 Laboratory Results Laboratory Results - last 24 hr 04/20/21 04/20/21 04/20/21 16:25 20:12 20:27 POC Glucose 97 109 H 111 H 04/21/21 07:39 POC Glucose 78 Medications Administered Current Inpatient Medications Acetaminophen (Acetaminophen 325 Mg Tab) 650 mg PO Q4H PRN PRN Reason: Pain or Fever Stop: 05/18/21 16:22 Atorvastatin Calcium (Atorvastatin 40 Mg Tab) 40 mg PO QPM [facility] Stop: 05/18/21 20:59 Last Admin: 04/20/21 20:30 Dose: 40 mg Documented by: Dextrose (Dextrose 50% 50 Ml Syringe) 25 - 50 ml IV UD PRN; Protocol PRN Reason: Hypoglycemia Protocol Stop: 05/20/21 15:14 Glucagon (Glucagon For Inj 1 Mg Vial) 1 mg IM UD PRN; Protocol PRN Reason: Hypoglycemia Protocol Stop: 05/20/21 15:14 Glucose (Glucose 40% Gel 15 Gm Tube) 15 - 30 gm PO UD PRN; Protocol PRN Reason: Hypoglycemia Protocol Stop: 05/20/21 15:14 Glucose (Glucose 10 Tabs/Tube) 4 - 8 tabs PO UD PRN; Protocol PRN Reason: Hypoglycemia Protocol Stop: 05/20/21 15:14 Insulin Aspart (Insulin Aspart Per Unit) 0 units SC ACHS [facility] Stop: 05/18/21 16:59 Last Admin: 04/21/21 08:23 Dose: 3 units Documented by: Insulin Glargine (Insulin Glargine Solostar 100 Units/Ml 3 Ml Pen) 15 units SQ BID [facility] Stop: 05/18/21 20:59 Last Admin: 04/21/21 08:24 Dose: 15 units Documented by: Levothyroxine Sodium (Levothyroxine Sodium 125 Mcg Tablet) 125 mcg PO DAILYBB [facility] Stop: 05/19/21 06:29 Last Admin: 04/21/21 06:14 Dose: 125 mcg Documented by: Lisinopril (Lisinopril 40 Mg Tab) 40 mg PO DAILY [facility] Stop: 05/19/21 08:59 Last Admin: 04/21/21 08:22 Dose: 40 mg Documented by: Metoprolol Tartrate (Metoprolol Tartrate 25 Mg Tab) 25 mg PO BIDM [facility] Stop: 05/18/21 16:59 Last Admin: 04/21/21 08:21 Dose: 25 mg Documented by: Metoprolol Tartrate (Metoprolol Tartrate 1 Mg/Ml Vial) 5 mg IV Q15M PRN PRN Reason: Tachycardia Stop: 04/21/21 22:43 Miscellaneous (Carbohydrates For Hypoglycemia ) 15 - 30 gm PO UD PRN PRN Reason: Hypoglycemia Treatment Stop: 05/20/21 15:14 Ondansetron HCl (Ondansetron Inj 2 Mg/Ml 2 Ml Vial) 4 mg IV Q6H PRN PRN Reason: Nausea Stop: 05/18/21 16:22 Potassium Chloride (Potassium Chloride Crtab 20 Meq Tabcr) 20 meq PO BID [facility] Stop: 05/19/21 08:59 Last Admin: 04/21/21 08:22 Dose: 20 meq Documented by: Quetiapine Fumarate (Quetiapine Fumarate 25 Mg Tablet) 12.5 mg PO HS PRN PRN Reason: Psychosis Stop: 05/18/21 16:22 Last Admin: 04/20/21 08:24 Dose: 12.5 mg Documented by: Rivaroxaban (Rivaroxaban 20 Mg Tab) 20 mg PO HS [facility] Stop: 05/18/21 20:59 Last Admin: 04/20/21 20:30 Dose: 20 mg Documented by: Triamterene/Hydrochlorothiazide (Triamterene/Hctz 37.5/25mg Tab) 1 tab PO DAILY [facility] Stop: 05/19/21 08:59 Last Admin: 04/21/21 08:22 Dose: 1 tab Documented by: PG Care Time/CCT Total # of Minutes Spent Total Time Spent with Patient: Total time spent is greater than 50% in coordination of care (as documented) at patient's floor/unit and/or counseling patient: Coding Level of Care Code 76317 Subseq Hosp Care Lvl 2 Diagnoses Weakness R53.1 COVID-19 U07.1 Gait apraxia R48.2 Hypertension I10 Hypertension type: unspecified Paroxysmal A-fib I48.0 Hyperlipidemia E78.5 Hypothyroidism E03.9 Controlled type 2 diabetes mellitus, with long-term current use of insulin E11.9; Z79.4 (1) Hypertension Hypertension type: unspecified Qualified Code(s): I10 - Essential (primary) hypertension
[2021-04-21] MEDS: ATORVASTATIN 40 MG TAB PO SCH (20:04)
[2021-04-21] MEDS: RIVAROXABAN 20 MG TAB PO SCH (20:05)
[2021-04-22] MEDS: LEVOTHYROXINE SODIUM 125 MCG TABLET PO SCH (06:23)
[2021-04-22] MEDS: METOPROLOL TARTRATE 25 MG TAB PO SCH ×2 (08:04→17:42)
[2021-04-22] MEDS: lisinopril 40 MG TAB PO SCH (08:06)
[2021-04-22] MEDS: TRIAMTERENE/HCTZ 37.5/25MG TAB PO SCH (08:06)
[2021-04-22] MEDS: POTASSIUM CHLORIDE CRTAB 20 MEQ TABCR PO SCH ×2 (08:06→20:36)
[2021-04-22] MEDS: INSULIN ASPART PER UNIT SC SCH ×4 (09:38→20:44)
[2021-04-22] MEDS: INSULIN GLARGINE SOLOSTAR 100 UNITS/ML 3 ML PEN SQ SCH ×2 (09:38→20:45)
[2021-04-22] MEDS ORDERED: POLYETHYLENE (MIRALAX) 17 GM PACK PO STA (14:01)
[2021-04-22] MEDS: SENNA 8.6 MG TAB PO SCH (14:34)
[2021-04-22] MEDS: NICOTINE 14 MG/24 HR PATCH TD SCH (17:43)
[2021-04-22] MEDS: RIVAROXABAN 20 MG TAB PO SCH (20:36)
[2021-04-22] MEDS: ATORVASTATIN 40 MG TAB PO SCH (20:36)
[2021-04-22] MEDS: POLYETHYLENE (MIRALAX) 17 GM PACK PO SCH (20:37)
--- NOTE | 2021-04-22 20:39 | Hospitalist Progress Note ---
Date of Service April 22, 2021 Assessment & Plan (1) Weakness: Plan: Suspect generalized weakness due to COVID-19 infection did well on 04/19 with PT, did not do as well on 04/20, with OT, unable to ambulate independently not strong enough to return to [facility] at this time even today he was 2 person assist to get into his chair, only 2 steps from bed see if he can get strong enough to return to [facility] reviewed outpatient neurology records, he has gait apraxia and cognitive impairment, unclear etiology, MRI has shown no stroke he follows with Dr. Warner (2) COVID-19: Plan: Likely major cause of the patient's weakness As he is not hypoxic, no need to start Covid directed medications. 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 Work with PT/OT : did well with PT on 04/19 but not with OT on 04/20 see if he gets stronger over the weekend (4) Hypertension: Plan: Continue antihypertensives including lisinopril 40 mg daily and Dyazide 37.5/25 (5) Paroxysmal A-fib: Plan: Per recent cardiology notes, patient was very recently taken off of his amiodarone He is on Xarelto, okay to continue this (6) Hyperlipidemia: Plan: Continue atorvastatin 40 mg daily (7) Hypothyroidism: Plan: Continue levothyroxine 125 mcg daily (8) Controlled type 2 diabetes mellitus, with long-term current use of insulin: Plan: Okay to continue Metformin for now Patient is on glargine insulin and sliding scale with meals, will continue both of these no hypoglycemia (9) Constipation: Plan: miralax BID starting today, Senokot S in AM monitor for BM Plan: try to improve strength to get back to [facility] Admission and Anticipated Discharge Date Admission Date: April 18, 2021 Subjective patient is stable, just still very weak breathing well, eating and drinking great working on getting him strong enough for [facility] Review of Systems Review of Systems: All systems reviewed & are unremarkable except as noted in Subjective Constitutional: + weakness Musculoskeletal: + muscle weakness Neurologic: + gait abnormality, + unsteadiness and + generalized weakness Physical Exam Physical Exam: General: well developed, well nourished, no acute distress, comfortable Neck: supple, trachea midline, normal thyroid Lungs: clear to auscultation bilaterally, normal respiratory effort, no accessory muscle use, no distress Heart: regular S1 and S2, no murmur, peripheral pulses normal, capillary refill normal, no edema Abdomen: soft, NT, ND, + BS, no hepatomegaly, normal to percussion Extremities: normal in appearance, no cyanosis, no petechiae, strength is 5/5 bilaterally Neuro: awake, cooperative, moves all extremities, no focal motor deficits, CN II-XII intact, sensation in extremities intact, normal speech Skin: warm, dry, no rash, normal turgor Psych: Awake, alert oriented x 3, euthymic affect Results & Data Results & Data ([facility]) Vital Signs (Past 12 Hours) Vital Signs Temp Pulse Resp BP BP Pulse Ox 04/22/21 19:54 36.9 C 78 18 128/88 94 04/22/21 15:21 36.9 C 56 L 18 117/73 95 04/22/21 15:05 96 04/22/21 11:17 36.6 C 57 L 18 116/76 95 Medications Administered Current Inpatient Medications Acetaminophen (Acetaminophen 325 Mg Tab) 650 mg PO Q4H PRN PRN Reason: Pain or Fever Stop: 05/18/21 16:22 Atorvastatin Calcium (Atorvastatin 40 Mg Tab) 40 mg PO QPM [facility] Stop: 05/18/21 20:59 Last Admin: 04/21/21 20:04 Dose: 40 mg Documented by: Dextrose (Dextrose 50% 50 Ml Syringe) 25 - 50 ml IV UD PRN; Protocol PRN Reason: Hypoglycemia Protocol Stop: 05/20/21 15:14 Glucagon (Glucagon For Inj 1 Mg Vial) 1 mg IM UD PRN; Protocol PRN Reason: Hypoglycemia Protocol Stop: 05/20/21 15:14 Glucose (Glucose 40% Gel 15 Gm Tube) 15 - 30 gm PO UD PRN; Protocol PRN Reason: Hypoglycemia Protocol Stop: 05/20/21 15:14 Glucose (Glucose 10 Tabs/Tube) 4 - 8 tabs PO UD PRN; Protocol PRN Reason: Hypoglycemia Protocol Stop: 05/20/21 15:14 Insulin Aspart (Insulin Aspart Per Unit) 0 units SC ACHS [facility] Stop: 05/18/21 16:59 Last Admin: 04/22/21 17:44 Dose: 8 units Documented by: Insulin Glargine (Insulin Glargine Solostar 100 Units/Ml 3 Ml Pen) 15 units SQ BID [facility] Stop: 05/18/21 20:59 Last Admin: 04/22/21 09:38 Dose: 15 units Documented by: Levothyroxine Sodium (Levothyroxine Sodium 125 Mcg Tablet) 125 mcg PO DAILYBB [facility] Stop: 05/19/21 06:29 Last Admin: 04/22/21 06:23 Dose: 125 mcg Documented by: Lisinopril (Lisinopril 40 Mg Tab) 40 mg PO DAILY [facility] Stop: 05/19/21 08:59 Last Admin: 04/22/21 08:06 Dose: 40 mg Documented by: Metoprolol Tartrate (Metoprolol Tartrate 25 Mg Tab) 25 mg PO BIDM [facility] Stop: 05/18/21 16:59 Last Admin: 04/22/21 17:42 Dose: Not Given Documented by: Miscellaneous (Carbohydrates For Hypoglycemia ) 15 - 30 gm PO UD PRN PRN Reason: Hypoglycemia Treatment Stop: 05/20/21 15:14 Miscellaneous (Remove Nicoderm Patch) 1 ea N/A DAILY@0859 [facility] Stop: 05/23/21 08:58 Nicotine (Nicotine 14 Mg/24 Hr Patch) 14 mg TD QAM [facility] Stop: 05/22/21 16:14 Last Admin: 04/22/21 17:43 Dose: 14 mg Documented by: Ondansetron HCl (Ondansetron Inj 2 Mg/Ml 2 Ml Vial) 4 mg IV Q6H PRN PRN Reason: Nausea Stop: 05/18/21 16:22 Polyethylene Glycol (Polyethylene (Miralax) 17 Gm Pack) 17 gm PO BID [facility] Stop: 05/22/21 20:59 Potassium Chloride (Potassium Chloride Crtab 20 Meq Tabcr) 20 meq PO BID [facility] Stop: 05/19/21 08:59 Last Admin: 04/22/21 08:06 Dose: 20 meq Documented by: Quetiapine Fumarate (Quetiapine Fumarate 25 Mg Tablet) 12.5 mg PO HS PRN PRN Reason: Psychosis Stop: 05/18/21 16:22 Last Admin: 04/20/21 08:24 Dose: 12.5 mg Documented by: Rivaroxaban (Rivaroxaban 20 Mg Tab) 20 mg PO HS [facility] Stop: 05/18/21 20:59 Last Admin: 04/21/21 20:05 Dose: 20 mg Documented by: Sennosides (Senna 8.6 Mg Tab) 17.2 mg PO QAM [facility] Stop: 05/22/21 14:14 Last Admin: 04/22/21 14:34 Dose: 17.2 mg Documented by: Triamterene/Hydrochlorothiazide (Triamterene/Hctz 37.5/25mg Tab) 1 tab PO DAILY [facility] Stop: 05/19/21 08:59 Last Admin: 04/22/21 08:06 Dose: 1 tab Documented by: PG Care Time/CCT Total # of Minutes Spent Total Time Spent with Patient: Total time spent is greater than 50% in coordination of care (as documented) at patient's floor/unit and/or counseling patient: Coding Level of Care Code 72540 Subseq Hosp Care Lvl 2 Diagnoses Weakness R53.1 COVID-19 U07.1 Gait apraxia R48.2 Hypertension I10 Hypertension type: unspecified Paroxysmal A-fib I48.0 Hyperlipidemia E78.5 Hypothyroidism E03.9 Controlled type 2 diabetes mellitus, with long-term current use of insulin E11.9; Z79.4 Constipation K59.00 (1) Hypertension Hypertension type: unspecified Qualified Code(s): I10 - Essential (primary) hypertension
[2021-04-23] MEDS: LEVOTHYROXINE SODIUM 125 MCG TABLET PO SCH (06:21)
[2021-04-23] MEDS: POTASSIUM CHLORIDE CRTAB 20 MEQ TABCR PO SCH ×2 (09:07→20:18)
[2021-04-23] MEDS: TRIAMTERENE/HCTZ 37.5/25MG TAB PO SCH (09:07)
[2021-04-23] MEDS: lisinopril 40 MG TAB PO SCH (09:07)
[2021-04-23] MEDS: SENNA 8.6 MG TAB PO SCH (09:07)
[2021-04-23] MEDS: METOPROLOL TARTRATE 25 MG TAB PO SCH ×2 (09:08→18:16)
[2021-04-23] MEDS: POLYETHYLENE (MIRALAX) 17 GM PACK PO SCH ×2 (09:08→20:17)
[2021-04-23] MEDS: NICOTINE 14 MG/24 HR PATCH TD SCH (09:08)
[2021-04-23] MEDS: INSULIN ASPART PER UNIT SC SCH ×4 (09:10→20:17)
[2021-04-23] MEDS: INSULIN GLARGINE SOLOSTAR 100 UNITS/ML 3 ML PEN SQ SCH ×2 (09:12→20:18)
--- NOTE | 2021-04-23 10:02 | Electrocardiogram Report ---
Test Reason : Blood Pressure : / mmHG Vent. Rate : 060 BPM Atrial Rate : 060 BPM P-R Int : 206 ms QRS Dur : 144 ms QT Int : 466 ms P-R-T Axes : 042 -34 010 degrees QTc Int : 466 ms Normal sinus rhythm Left axis deviation Right bundle branch block with repolarization abnormality Moderate voltage criteria for LVH, may be normal variant Abnormal ECG When compared with ECG of 18-APR-2021 10:34, No significant change was found Confirmed by Monty Rodriges ([id number]) on 04/23/2021 10:02:02 AM Referred By: REFERRED SELF Confirmed By:Monty Rodriges
--- NOTE | 2021-04-23 17:46 | Hospitalist Progress Note ---
Date of Service April 23, 2021 Assessment & Plan (1) Weakness: Plan: Suspect generalized weakness due to COVID-19 infection did well on 04/19 with PT, did not do as well on 04/20, with OT, unable to ambulate independently not strong enough to return to [facility] at this time even today he was 2 person assist to get into his chair, only 2 steps from bed see if he can get strong enough to return to (unlikely)[facility] reviewed outpatient neurology records, he has gait apraxia and cognitive impairment, unclear etiology, MRI has shown no stroke he follows with Dr. Warner (2) COVID-19: Plan: Likely major cause of the patient's weakness As he is not hypoxic, no need to start Covid directed medications. 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 Work with PT/OT : did well with PT on 04/19 but not with OT on 04/20 see if he gets stronger over the weekend (4) Hypertension: Plan: Continue antihypertensives including lisinopril 40 mg daily and Dyazide 37.5/25 (5) Paroxysmal A-fib: Plan: Per recent cardiology notes, patient was very recently taken off of his amiodarone He is on Xarelto, okay to continue this (6) Hyperlipidemia: Plan: Continue atorvastatin 40 mg daily (7) Hypothyroidism: Plan: Continue levothyroxine 125 mcg daily (8) Controlled type 2 diabetes mellitus, with long-term current use of insulin: Plan: Okay to continue Metformin for now Patient is on glargine insulin and sliding scale with meals, will continue both of these no hypoglycemia (9) Constipation: Plan: miralax BID starting today, Senokot S in AM monitor for BM Plan: try to improve strength to get back to [facility] Admission and Anticipated Discharge Date Admission Date: April 18, 2021 Subjective Patient reports feeling well. He has no new complaints. Review of Systems Review of Systems: All systems reviewed & are unremarkable except as noted in HPI & below Physical Exam Physical Exam: General: well developed, well nourished, no acute distress, comfortable Neck: supple, trachea midline, normal thyroid Lungs: clear to auscultation bilaterally, normal respiratory effort, no accessory muscle use, no distress Heart: regular S1 and S2, no murmur, peripheral pulses normal, capillary refill normal, no edema Abdomen: soft, NT, ND, + BS, no hepatomegaly, normal to percussion Extremities: normal in appearance, no cyanosis, no petechiae, strength is 5/5 bilaterally Neuro: awake, cooperative, moves all extremities, no focal motor deficits, CN II-XII intact, sensation in extremities intact, normal speech Skin: warm, dry, no rash, normal turgor Psych: Awake, alert oriented x 3, euthymic affect Results & Data Results & Data ([facility]) Vital Signs (Past 12 Hours) Vital Signs Temp Pulse Pulse Resp BP Pulse Ox 04/23/21 15:00 36.3 C L 60 18 130/82 96 04/23/21 14:40 59 L 04/23/21 10:00 36.3 C L 61 20 114/75 93 04/23/21 07:00 36.4 C L 61 18 134/90 96 PG Care Time/CCT Total # of Minutes Spent Total Time Spent with Patient: Total time spent is greater than 50% in coordination of care (as documented) at patient's floor/unit and/or counseling patient: Coding Level of Care Code 92724 Subseq Hosp Care Lvl 2 Diagnoses Weakness R53.1 COVID-19 U07.1 Gait apraxia R48.2 Hypertension I10 Hypertension type: unspecified Paroxysmal A-fib I48.0 Hyperlipidemia E78.5 Hypothyroidism E03.9 Controlled type 2 diabetes mellitus, with long-term current use of insulin E11.9; Z79.4 Constipation K59.00 (1) Hypertension Hypertension type: unspecified Qualified Code(s): I10 - Essential (primary) hypertension
[2021-04-23] MEDS: ATORVASTATIN 40 MG TAB PO SCH (20:19)
[2021-04-23] MEDS: RIVAROXABAN 20 MG TAB PO SCH (20:19)
[2021-04-24] MEDS: LEVOTHYROXINE SODIUM 125 MCG TABLET PO SCH (06:08)
[2021-04-24] MEDS: METOPROLOL TARTRATE 25 MG TAB PO SCH ×2 (08:53→17:04)
[2021-04-24] MEDS: NICOTINE 14 MG/24 HR PATCH TD SCH (08:56)
[2021-04-24] MEDS: TRIAMTERENE/HCTZ 37.5/25MG TAB PO SCH (08:56)
[2021-04-24] MEDS: POTASSIUM CHLORIDE CRTAB 20 MEQ TABCR PO SCH ×2 (08:56→21:02)
[2021-04-24] MEDS: POLYETHYLENE (MIRALAX) 17 GM PACK PO SCH ×2 (08:56→21:01)
[2021-04-24] MEDS: lisinopril 40 MG TAB PO SCH (08:56)
[2021-04-24] MEDS: SENNA 8.6 MG TAB PO SCH (08:56)
[2021-04-24] MEDS: INSULIN ASPART PER UNIT SC SCH ×4 (08:58→21:00)
[2021-04-24] MEDS: INSULIN GLARGINE SOLOSTAR 100 UNITS/ML 3 ML PEN SQ SCH ×2 (08:58→21:00)
--- NOTE | 2021-04-24 20:56 | Hospitalist Progress Note ---
Date of Service April 24, 2021 Assessment & Plan (1) Weakness: Plan: Suspect generalized weakness due to COVID-19 infection did well on 04/19 with PT, did not do as well on 04/20, with OT, unable to ambulate independently not strong enough to return to [facility] at this time even today he was 2 person assist to get into his chair, only 2 steps from bed see if he can get strong enough to return to (unlikely)[facility] reviewed outpatient neurology records, he has gait apraxia and cognitive impairment, unclear etiology, MRI has shown no stroke he follows with Dr. Warner will discuss options with case management. (2) COVID-19: Plan: Likely major cause of the patient's weakness As he is not hypoxic, no need to start Covid directed medications. 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 Work with PT/OT : did well with PT on 04/19 but not with OT on 04/20 see if he gets stronger over the weekend (4) Hypertension: Plan: Continue antihypertensives including lisinopril 40 mg daily and Dyazide 37.5/25 (5) Paroxysmal A-fib: Plan: Per recent cardiology notes, patient was very recently taken off of his amiodarone He is on Xarelto, okay to continue this (6) Hyperlipidemia: Plan: Continue atorvastatin 40 mg daily (7) Hypothyroidism: Plan: Continue levothyroxine 125 mcg daily (8) Controlled type 2 diabetes mellitus, with long-term current use of insulin: Plan: Okay to continue Metformin for now Patient is on glargine insulin and sliding scale with meals, will continue both of these no hypoglycemia (9) Constipation: Plan: miralax BID starting today, Senokot S in AM monitor for BM Plan: try to improve strength to get back to [facility] Admission and Anticipated Discharge Date Admission Date: April 18, 2021 Subjective Patient reports no new symptoms. Review of Systems Review of Systems: All systems reviewed & are unremarkable except as noted in HPI & below Physical Exam Physical Exam: General: well developed, well nourished, no acute distress, comfortable Neck: supple, trachea midline, normal thyroid Lungs: clear to auscultation bilaterally, normal respiratory effort, no acces john muscle use, no distress Heart: regular S1 and S2, no murmur, peripheral pulses normal, capillary refill normal, no edema Abdomen: soft, NT, ND, + BS, no hepatomegaly, normal to percussion Extremities: normal in appearance, no cyanosis, no petechiae, strength is 5/5 bilaterally Neuro: awake, cooperative, moves all extremities, no focal motor deficits, CN II-XII intact, sensation in extremities intact, normal speech Skin: warm, dry, no rash, normal turgor Psych: Awake, alert oriented x 3, euthymic affect Results & Data Results & Data ([facility]) Vital Signs (Past 12 Hours) Vital Signs Temp Pulse Pulse Resp BP BP Pulse Ox 04/24/21 19:56 36.5 C 61 18 107/70 99 04/24/21 16:19 59 L 04/24/21 15:47 36.5 C 53 L 18 127/84 97 04/24/21 11:45 36.4 C L 55 L 16 136/84 98 PG Care Time/CCT Total # of Minutes Spent Total Time Spent with Patient: Total time spent is greater than 50% in coordination of care (as documented) at patient's floor/unit and/or counseling patient: Coding Level of Care Code 53661 Subseq Hosp Care Lvl 2 Diagnoses Weakness R53.1 COVID-19 U07.1 Gait apraxia R48.2 Hypertension I10 Hypertension type: unspecified Paroxysmal A-fib I48.0 Hyperlipidemia E78.5 Hypothyroidism E03.9 Controlled type 2 diabetes mellitus, with long-term current use of insulin E11.9; Z79.4 Constipation K59.00 (1) Hypertension Hypertension type: unspecified Qualified Code(s): I10 - Essential (primary) hypertension
[2021-04-24] MEDS: ATORVASTATIN 40 MG TAB PO SCH (21:01)
[2021-04-24] MEDS: RIVAROXABAN 20 MG TAB PO SCH (21:02)
[2021-04-25] MEDS: LEVOTHYROXINE SODIUM 125 MCG TABLET PO SCH (06:32)
[2021-04-25] MEDS: METOPROLOL TARTRATE 25 MG TAB PO SCH (08:11)
[2021-04-25] MEDS: POLYETHYLENE (MIRALAX) 17 GM PACK PO SCH (08:12)
[2021-04-25] MEDS: lisinopril 40 MG TAB PO SCH (08:12)
[2021-04-25] MEDS: NICOTINE 14 MG/24 HR PATCH TD SCH (08:12)
[2021-04-25] MEDS: SENNA 8.6 MG TAB PO SCH (08:13)
[2021-04-25] MEDS: TRIAMTERENE/HCTZ 37.5/25MG TAB PO SCH (08:13)
[2021-04-25] MEDS: POTASSIUM CHLORIDE CRTAB 20 MEQ TABCR PO SCH (08:13)
[2021-04-25] MEDS: INSULIN ASPART PER UNIT SC SCH ×2 (08:20→12:15)
[2021-04-25] MEDS: INSULIN GLARGINE SOLOSTAR 100 UNITS/ML 3 ML PEN SQ SCH (08:20)
[2021-04-25 14:26] LABS: BUN Creatinine Ratio 18.9 (10-20); Calcium 9.6 mg/dl (8.5-10.1); Creatinine Clr Calc Pharmacy 70.6 ml/min; Est GFR (African American) 79.8 ml/min; Est GFR (Non-African American) 68.8 ml/min; Potassium 4.3 mmol/L (3.5-5.1)
--- NOTE | 2021-04-25 14:58 | Discharge Summary ---
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 Patient is pleasant good historian. Patient tells me that he lives in [facility]. He typically ambulates with a walker. He follows with cardiology for his atrial fibrillation along with n eurology. Patient denies any recent illness and specifically denies any shortness of breath/SUE, fever or chills, nausea or vomiting, or other issues. He was at his [facility]yster [facility] late last week and had no problems during that appointment during their documentation. However, he woke up this morning and tried to ambulate out of bed. He states that he was able to get his feet to the floor but then fell. He was down approximately 45 minutes until he was found by staff. He is a little limited in the course of events after this, does not recall having his blood sugar taken or what other measures may have been done. He was eventually sent to the hospital via ambulance as a possible stroke alert. Neurology did evaluate the patient although their documentation is not yet available. I did discuss with the ER physician who told me that the patient did get an evaluation it was not felt that he had a new CVA. However, he did test positive for Covid and it was felt that the patient's generalized weakness was secondary to this. I did discuss with the patient, he tells me he has been vaccinated but again is denying any respiratory symptoms. Patient is now being admitted for further work-up and PT/OT for generalized weakness. Principal Diagnosis generalized weakness Discharge Exam General: well developed, well nourished, no acute distress, comfortable Neck: supple, trachea midline, normal thyroid Lungs: clear to auscultation bilaterally, normal respiratory effort, no accessory muscle use, no distress Heart: regular S1 and S2, no murmur, peripheral pulses normal, capillary refill normal, no edema Abdomen: soft, NT, ND, + BS, no hepatomegaly, normal to percussion Extremities: normal in appearance, no cyanosis, no petechiae, strength is 5/5 bilaterally Neuro: awake, cooperative, moves all extremities, no focal motor deficits, CN II-XII intact, sensation in extremities intact, normal speech Skin: warm, dry, no rash, normal turgor Psych: Awake, alert oriented x 3, euthymic affect Discharge Data Allergies Allergy/AdvReac Type Severity Reaction Status Date / Time No Known Allergies Allergy Verified 04/18/21 11:23 Consultations 04/18/21 13:53 ED Decision to Admit Stat Ordered Studies 04/18/21 11:13 CT head/brain wo con Stat Hospital Course (1) Weakness: Suspect generalized weakness due to COVID-19 infection did well on 04/19 with PT, did not do as well on 04/20, with OT, unable to ambulate independently not strong enough to return to [facility] at this time even today he was 2 person assist to get into his chair, only 2 steps from bed reviewed outpatient neurology records, he has gait apraxia and cognitive impairment, unclear etiology, MRI has shown no stroke he follows with Dr. Warner Patient will return to [facility]. He will receive physical therapy there. (2) COVID-19: Likely major cause of the patient's weakness As he is not hypoxic, no need to start Covid directed medications. Monitor for symptoms and oxygen status PT/OT as noted above CXR is clear, lungs are clear, stable on room air since admission, he is 94% today eating and drinking well monitor for any hypoxia On room air at discharge. 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 Work with PT/OT : did well with PT on 04/19 but not with OT on 04/20 see if he gets stronger over the weekend (4) Hypertension: Continue antihypertensives including lisinopril 40 mg daily and Dyazide 3 .08/10 (5) Paroxysmal A-fib: Per recent cardiology notes, patient was very recently taken off of his amiodarone He is on Xarelto, okay to continue this (6) Hyperlipidemia: Continue atorvastatin 40 mg daily (7) Hypothyroidism: Continue levothyroxine 125 mcg daily (8) Controlled type 2 diabetes mellitus, with long-term current use of insulin: Okay to continue Metformin for now Patient is on glargine insulin and sliding scale with meals, will continue both of these no hypoglycemia (9) Constipation: miralax BID starting today, Senokot S in AM monitor for BM try to improve strength to get back to [facility] Total Time Total Time Spent Total Time Spent (In Minutes): 32 Discharge Plan Discharge Items Patient Disposition: Personal Half-Way Reason For Visit: FALL, COVID Discharge Diagnosis: covid Condition on Discharge: Fair Activity: Resume your previous activity Non-emergency contact: Primary Care Provider Call non-emergency contact if: you have any medication questions Follow-up/Referrals: Jg Valdez DO [Primary Care Provider] - Diet: Carb Consistent or DM2 Addtl Attending Provider Instructions: You have been hospitalized for an acute medical problem. During your stay at [facility], we have made an effort to correct the problem that brought you to the hospital while keeping you as comfortable as possible. Medications were used to bring your condition under control and your discharge i nstructions will include directions for any medications you should take after leaving the hospital. Please make sure you see your Primary Care Provider as part of your follow up plan. recommend checking BMP in 1 week. May consider stopping potassium if normal. Pending Studies at Discharge: No Stand-Alone Forms: My [facility] Pressure BioSciences, Smoking Cessation Skilled Items Patient informed of condition?: Yes DNR: No Discharge Level of Care: Skilled Communicable Disease: No Discharge Prognosis: Stable Lines: None Urinary Catheter: No Medications and DC Order Prescriptions: New nicotine 7 mg/24 hr Patch 24 Hour 14 mg transdermal QAM Qty: 14 RF: 0 potassium chloride 20 mEq Tablet,Er Particles/Crystals 20 meq PO Q2D Qty: 15 RF: 0 Continued lisinopril 40 mg tablet 40 mg PO DAILY Qty: 30 RF: 11 levothyroxine 125 mcg tablet 125 mcg PO DAILY Qty: 30 RF: 11 atorvastatin 40 mg tablet 40 mg PO QPM Qty: 90 RF: 3 insulin aspart U-100 [Novolog Flexpen U-100 Insulin] 100 unit/mL (3 mL) insulin pen See Rx Instructions .ROUTE .COMPLEX Qty: 15 RF: 5 (DME) Wheeled Walker Misc See Rx Instructions .Route Qty: 1 RF: 0 quetiapine 25 mg tablet 12.5 mg PO HS PRN (Reason: Psychosis) RF: 0 acetaminophen 325 mg capsule 325 mg PO Q6H PRN (Reason: Pain) RF: 0 triamterene-hydrochlorothiazid 37.5-25 mg tablet 1 tab PO DAILY Qty: 90 RF: 3 metoprolol tartrate 25 mg tablet 25 mg PO BIDM RF: 0 metformin 500 mg tablet extended release 24hr 500 mg PO BIDM RF: 0 Lantus Solostar U-100 Insulin 100 unit/mL (3 mL) insulin pen 15 unit subcut BID RF: 0 Xarelto 20 mg tablet 20 mg PO HS RF: 0 Discharge Orders: Discharge Order (Routine); Ordered 04/25/21 Ordered By: Rush Garcia Admission Data Admit Date/Time: 04/18/21 14:54 Attending Provider: Rush Garcia Admit Provider: Mark Bobby Primary Care Provider: Jg Valdez Other Providers: Mark Bobby Other Interventions: Discharge Summary Assessment (RN) Last Done: 04/25/21 14:52 Coding Level of Care Code D/C DAY MANAGEMENT >30 MINS Diagnoses Weakness R53.1 COVID-19 U07.1 Gait apraxia R48.2 Hypertension I10 Hypertension type: unspecified Paroxysmal A-fib I48.0 Hyperlipidemia E78.5 Hypothyroidism E03.9 Controlled type 2 diabetes mellitus, with long-term current use of insulin E11.9; Z79.4 Constipation K59.00 Time Spent (min) 32
== END 2021-04-25 15:00 | disposition home or self-care (01) | DRG 179 ==
LOC: ED 10:28 → 2W 14:54 → SUATTDRO 14:54 → 2W 16:27

== ENCOUNTER 2021-12-18 08:09 | Inpatient (IN) ==
[2021-12-18] MEDS ORDERED: oxyCODONE HCL IR 5 MG TAB (IMMEDIATE RELEASE) PO STA (08:21)
--- NOTE | 2021-12-18 08:25 | Emergency Department Note ---
Impression & Plan Subcapital fracture of left hip, Acute hyperglycemia ED Provider Note NAME: HEBER ADAIR AGE: 66 SEX: M : 1955 ARRIVES VIA: Ambulance INFORMANT: Patient, ED PROVIDER(S): Reza Savage DO CHIEF COMPLAINT: Left hip pain HPI: The patient is a 66-year-old male who comes from a personal group home for an evaluation after a fall. The patient fell out of bed and was found on the floor. He denies having any neck pain. He denies having any back pain or headache. The patient does take oral anticoagulants for atrial fibrillation. When he tried to stand he has very severe pain in his left buttocks. He denies having any pain in his right leg. He is able to move his right leg without difficulty. The patient has severe pain in his left butt cheek as soon as he moves his left knee or his left hip. The patient denies having any chest pain or difficulty breathing. He said no abdominal pain. He denies having any r ecent illnesses such as fever. He states he has been compliant with his outpatient medications otherwise. ROS: See above HPI for pertinent positives & negatives. A total of 10 systems reviewed and were otherwise negative. PAST MEDICAL HISTORY: See Below PAST SURGICAL HISTORY: See Below FAMILY HISTORY: See Below SOCIAL HISTORY: See Below HOME MEDICATIONS: See Below ALLERGIES: See Below VITALS: See Below PHYSICAL EXAMINATION: GENERAL: The patient is awake and alert. He is resting comfortably. He is being evaluated by the nursing crew. EYES: The conjunctivae are clear. The pupils are round and reactive. EARS, NOSE, MOUTH AND THROAT: The nose is without any evidence of any deformity. NECK: The neck is nontender and supple. RESPIRATORY: Normal respiratory effort is noted there is no evidence of wheezing rhonchi or rales CARDIOVASCULAR: Regular rate and rhythm noted there no murmurs rubs or gallops normal S1 normal S2. GASTROINTESTINAL: The abdomen is soft. Abdomen is nontender. BACK: No midline tenderness or or step-off noted range of motion in flexion extension as well as rotation no signs of muscle spasm noted MUSCULOSKELETAL/EXTREMITIES: There is no pain with range of motion testing of the shoulders. The patient does have pain with range of motion testing of the left hip but he localizes the pain to his posterior left buttocks. There is no deformity or shortening. Palpable tenderness is absent when evaluating the left or the right knee. SKIN: There is no obvious evidence of any rash. There are no petechiae, pallor or cyanosis noted. NEUROLOGIC: Patient is awake alert and oriented x3. MEDICAL DECISION MAKING: Patient is a 66-year-old male who presented to the emergency department for an e valuation of left-sided pain. The patient fell out of bed and was found on the floor at his personal-group home. The patient had significant pain with range of motion testing left hip. X-rays did reveal signs of a subcapital left hip fracture. I discussed patient's laboratory and radiographic studies with him. The patient was treated with pain medication in the emergency department. He was significantly improved. He was also found to have elevated blood sugar. He was treated with IV insulin and IV fluids. The patient will require inpatient management further evaluate and treat this fracture. Triage Nursing notes reviewed. Prior medical records reviewed Vital Signs: reviewed and remarkable for no significant abnormalities Differential diagnosis: Fracture, subluxation, dislocation, contusion, ligamentous injury, neurovascular, compartment syndrome, rhabdomyolysis, as well as other patho logies. ER treatment provided: See below Diagnostics interpreted by me: ECG: EKG was obtained in the emergency department. My interpretation is normal sinus rhythm at 75 bpm. Right bundle branch block pattern was appreciated. There were no PVCs. This was compared to a tracing from April 22, 2021. No changes were noted. Cardiac Monitoring: An order was placed for continuous cardiac monitoring. The monitor shows a rate of 73 bpm with sinus rhythm. Laboratory studies: As stated above and show below. Imaging studies: See below Consultation(s): I discussed this case with Josie who is on for the [facility] hospitalist group. Past Med/Surg History Medical History Collapse Cough COVID-19 History of alcoholism History of prostate cancer Hyperlipidemia Hypoglycemia Hypothyroidism Insomnia Nausea Nicotine abuse Seborrheic dermatitis of scalp Sore throat Unresponsive episode Vitamin D deficiency Weakness Surgical History History of left knee surgery History of shoulder surgery Left Family History Mother Cancer Grandmother (Paternal) Stroke Grandfather (Paternal) Stroke Other Myocardial infarction Denies family history of Ovarian cancer Prostate cancer Breast cancer Colorectal cancer Social History Smoking Status: Never smoker Tobacco Type: Smokeless Tobacco (Dip or Chew) Age Started Using Tobacco: 16; Age Quit Using Tobacco: 26; Second Hand Exposure: No; Hx Alcohol Use: No Hx Substance Use: No Preferred Language: Lao Communication Ability: Effective Nurse Sane Required: No Beliefs That Will Affect Care: None marital status: Single Current Living Situation: Personal Care Facility current occupational status: retired current occupation: [employer] How many Children do You have: 0 Feels Safe at Home: Yes Childhood Exposure to Second-Hand Smoke: Yes caffeine: Yes (iced tea ) Dental Care, Regularly: No Physical Activity Frequency: Does not Exercise Seatbelt Use: always Sunscreen Use: No Assistive Devices: Walker Allergies Allergies Allergy/AdvReac Type Severity Reaction Status Date / Time No Known Allergies Allergy Verified 09/16/21 09:49 Home Meds Home Medications Medication Instructions Recorded Confirmed quetiapine 25 mg tablet 12.5 mg PO HS PRN Psychosis 11/18/20 09/16/21 insulin aspart U-100 100 unit/mL See Rx Instructions .Route .COMPLEX 09/16/21 (3 mL) subcutaneous pen (Novolog Flexpen U-100 Insulin aspart) Previous Rx's Medication Instructions Recorded Wheeled Walker #1 ea 03/21/21 potassium chloride 20 mEq 20 meq PO DAILY #90 tabs 05/12/21 tablet,extended release(part/cryst) acetaminophen 325 mg capsule 650 mg PO Q6H PRN Pain #90 caps 05/18/21 magnesium oxide 400 mg PO DAILY #30 tabs 05/24/21 pen needle, diabetic, safety 30 #100 ea 07/28/21 gauge x 1/3" (Novofine Autocover) diclofenac sodium 75 mg 75 mg PO BID PRN pain #60 tabs 09/28/21 tablet,delayed release atorvastatin 40 mg tablet 40 mg PO QPM #90 tabs 10/03/21 levothyroxine 125 mcg tablet 125 mcg PO DAILY #30 tabs 10/03/21 lisinopril 40 mg tablet 40 mg PO DAILY #30 tabs 10/03/21 metformin 500 mg tablet,extended 500 mg PO BIDM #60 tabs 10/03/21 release 24hr metoprolol tartrate 25 mg tablet 25 mg PO BIDM #60 tabs 10/03/21 rivaroxaban 20 mg tablet (Xarelto) 20 mg PO HS #30 tabs 10/03/21 amlodipine 2.5 mg tablet 5 mg PO DAILY #180 tabs 10/04/21 insulin glargine 100 unit/mL (3 15 unit (0.15 mL) subcut BID 30 10/04/21 mL) subcutaneous pen (Lantus days #9 mL Solostar U-100 Insulin) triamterene 37.5 1 tab PO DAILY #90 tabs 10/04/21 mg-hydrochlorothiazide 25 mg tablet polyethylene glycol 3350 17 17 g PO BID PRN constipation #850 12/16/21 gram/dose oral powder (Miralax) grams Results & Data (ED) Vital Signs Vital Signs - 24 hr 12/18/21 08:14 12/18/21 09:07 12/18/21 09:07 Temperature 36.5 C Temperature Source Oral Pulse Rate 73 69 Pulse Rate [Finger] 63 Respiratory Rate 18 18 18 Respiratory Effort / Characteristics Non-Labored Non-Labored Respiratory Depth Normal Normal Blood Pressure 126/105 H Blood Pressure [Right Arm] 120/80 Blood Pressure Mean 112 Blood Pressure Mean [Right Arm] 93 Blood Pressure Position Semi-fowlers Blood Pressure Position [Right Arm] Semi-fowlers Pulse Oximetry 98 96 96 Oxygen Delivery Method Room Air Nasal Cannula Room Air Sepsis Recent Fever Within 48 Hours No Sepsis New/Unexplained Change in Mental Status No Sepsis Action Taken by Nursing No Action Required 12/18/21 10:09 Temperature Temperature Source Pulse Rate Pulse Rate [Finger] 71 Respiratory Rate 18 Respiratory Effort / Characteristics Respiratory Depth Blood Pressure Blood Pressure [Right Arm] 125/82 Blood Pressure Mean Blood Pressure Mean [Right Arm] 96 Blood Pressure Position Blood Pressure Position [Right Arm] Pulse Oximetry 96 Oxygen Delivery Method Room Air Sepsis Recent Fever Within 48 Hours Sepsis New/Unexplained Change in Mental Status Sepsis Action Taken by Snf Medications Current Medication List: was personally reviewed by me Laboratory Data Attestation: I reviewed the patient's lab results. Result diagrams: 12/18/21 09:05 12/18/21 09:05 Lab Results 12/18/21 12/18/21 12/18/21 Range/Units 08:33 09:05 09:05 WBC 11.18 H (4.8-10.8) K/ul RBC 4.50 L (4.63-6.08) M/uL Hgb 13.9 L (14.0-18.0) g/dl Hct 38.2 L (40.1-51.0) % MCV 84.9 (80.0-100.0) fL MCH 30.9 (25.0-34.0) pg MCHC 36.4 H (32.0-36.0) g/dL RDW Std Deviation 37.9 (36.4-46.3) fL RDW Coeff of Robyn 12.3 (11.5-14.5) % Plt Count 189 (130-400) K/uL MPV 9.5 (9.4-12.4) fL Immature Gran % (Auto) 0.5 % Neut % (Auto) 84.4 % Lymph % (Auto) 7.4 % Titus % (Auto) 7.2 % Eos % (Auto) 0.2 % Baso % (Auto) 0.3 % Neut # (Auto) 9.44 H (1.4-6.5) K/uL Lymph # (Auto) 0.83 L (1.2-3.4) K/uL Titus # (Auto) 0.80 (0.24-0.82) K/uL Eos # (Auto) 0.02 (0-0.50) K/uL Baso # (Auto) 0.03 (0-0.2) K/uL Immature Gran # (Auto) 0.06 H (0.00-0.02) K/uL PT 12.7 H (9.0-12.0) Seconds INR 1.2 H (0.9-1.1) APTT 27.4 (21.0-31.0) Seconds PTT Ratio 1.0 Sodium (136-145) mmol/L Potassium (3.5-5.1) mmol/L Chloride (98-107) mmol/L Carbon Dioxide (21-32) mmol/L Anion Gap (3-11) BUN (6-23) mg/dl Creatinine (0.6-1.4) mg/dl Est Cr Clr Drug Dosing Est GFR ( Amer) ml/min Est GFR (Non-Af Amer) ml/min BUN/Creatinine Ratio (10-20) Glucose (70-99(Fasting)) mg/dl POC Glucose 470 H* (70-99) mg/dl Calcium (8.5-10.1) mg/dl Total Bilirubin (0.2-1.0) mg/dl AST (13-39) U/L ALT (7-52) U/L Alkaline Phosphatase (34-104) U/L Total Creatine Kinase (30-223) U/L Troponin I High Sens (0-20) pg/ml Total Protein (6.0-8.3) gm/dl Albumin (3.4-5.0) gm/dl Globulin (2.5-4.0) gm/dl Albumin/Globulin Ratio (0.9-2) Lipase (11-82) U/L Urine Color Urine Appearance (Clear) Urine pH (4.5-7.5) Ur Specific Volant (1.000-1.030) Urine Protein (Negative) Urine Glucose (UA) (Negative) Urine Ketones (Negative) Urine Blood (Negative) Urine Nitrite (Negative) Urine Bilirubin (Negative) Urine Urobilinogen (Negative) Ur Leukocyte Esterase (Negative) SARS-CoV-2, RNA, NAAT (NEGATIVE) 12/18/21 12/18/21 12/18/21 Range/Units 09:05 09:05 10:00 WBC (4.8-10.8) K/ul RBC (4.63-6.08) M/uL Hgb (14.0-18.0) g/dl Hct (40.1-51.0) % MCV (80.0-100.0) fL MCH (25.0-34.0) pg MCHC (32.0-36.0) g/dL RDW Std Deviation (36.4-46.3) fL RDW Coeff of Robyn (11.5-14.5) % Plt Count (130-400) K/uL MPV (9.4-12.4) fL Immature Gran % (Auto) % Neut % (Auto) % Lymph % (Auto) % Titus % (Auto) % Eos % (Auto) % Baso % (Auto) % Neut # (Auto) (1.4-6.5) K/uL Lymph # (Auto) (1.2-3.4) K/uL Titus # (Auto) (0.24-0.82) K/uL Eos # (Auto) (0-0.50) K/uL Baso # (Auto) (0-0.2) K/uL Immature Gran # (Auto) (0.00-0.02) K/uL PT (9.0-12.0) Seconds INR (0.9-1.1) APTT (21.0-31.0) Seconds PTT Ratio Sodium 133 L (136-145) mmol/L Potassium 4.0 (3.5-5.1) mmol/L Chloride 97 L (98-107) mmol/L Carbon Dioxide 19 L (21-32) mmol/L Anion Gap 17 H (3-11) BUN 24 H (6-23) mg/dl Creatinine 0.89 (0.6-1.4) mg/dl Est Cr Clr Drug Dosing Not Reportable Est GFR ( Amer) 103.3 ml/min Est GFR (Non-Af Amer) 89.1 ml/min BUN/Creatinine Ratio 27.0 H (10-20) Glucose 471 H* (70-99(Fasting)) mg/dl POC Glucose (70-99) mg/dl Calcium 9.1 (8.5-10.1) mg/dl Total Bilirubin 1.5 H (0.2-1.0) mg/dl AST 14 (13-39) U/L ALT 22 (7-52) U/L Alkaline Phosphatase 110 H (34-104) U/L Total Creatine Kinase 38 (30-223) U/L Troponin I High Sens 6.1 (0-20) pg/ml Total Protein 6.5 (6.0-8.3) gm/dl Albumin 3.9 (3.4-5.0) gm/dl Globulin 2.6 (2.5-4.0) gm/dl Albumin/Globulin Ratio 1.5 (0.9-2) Lipase 16 (11-82) U/L Urine Color Yellow Urine Appearance Clear (Clear) Urine pH 5.5 (4.5-7.5) Ur Specific Volant 1.034 H (1.000-1.030) Urine Protein Negative (Negative) Urine Glucose (UA) 3+ H (Negative) Urine Ketones 4+ H (Negative) Urine Blood Negative (Negative) Urine Nitrite Negative (Negative) Urine Bilirubin Negative (Negative) Urine Urobilinogen Negative (Negative) Ur Leukocyte Esterase Negative (Negative) SARS-CoV-2, RNA, NAAT NEGATIVE (NEGATIVE) 12/18/21 Range/Units 10:03 WBC (4.8-10.8) K/ul RBC (4.63-6.08) M/uL Hgb (14.0-18.0) g/dl Hct (40.1-51.0) % MCV (80.0-100.0) fL MCH (25.0-34.0) pg MCHC (32.0-36.0) g/dL RDW Std Deviation (36.4-46.3) fL RDW Coeff of Robyn (11.5-14.5) % Plt Count (130-400) K/uL MPV (9.4-12.4) fL Immature Gran % (Auto) % Neut % (Auto) % Lymph % (Auto) % Titus % (Auto) % Eos % (Auto) % Baso % (Auto) % Neut # (Auto) (1.4-6.5) K/uL Lymph # (Auto) (1.2-3.4) K/uL Titus # (Auto) (0.24-0.82) K/uL Eos # (Auto) (0-0.50) K/uL Baso # (Auto) (0-0.2) K/uL Immature Gran # (Auto) (0.00-0.02) K/uL PT (9.0-12.0) Seconds INR (0.9-1.1) APTT (21.0-31.0) Seconds PTT Ratio Sodium (136-145) mmol/L Potassium (3.5-5.1) mmol/L Chloride (98-107) mmol/L Carbon Dioxide (21-32) mmol/L Anion Gap (3-11) BUN (6-23) mg/dl Creatinine (0.6-1.4) mg/dl Est Cr Clr Drug Dosing Est GFR ( Amer) ml/min Est GFR (Non-Af Amer) ml/min BUN/Creatinine Ratio (10-20) Glucose (70-99(Fasting)) mg/dl POC Glucose 375 H* (70-99) mg/dl Calcium (8.5-10.1) mg/dl Total Bilirubin (0.2-1.0) mg/dl AST (13-39) U/L ALT (7-52) U/L Alkaline Phosphatase (34-104) U/L Total Creatine Kinase (30-223) U/L Troponin I High Sens (0-20) pg/ml Total Protein (6.0-8.3) gm/dl Albumin (3.4-5.0) gm/dl Globulin (2.5-4.0) gm/dl Albumin/Globulin Ratio (0.9-2) Lipase (11-82) U/L Urine Color Urine Appearance (Clear) Urine pH (4.5-7.5) Ur Specific Volant (1.000-1.030) Urine Protein (Negative) Urine Glucose (UA) (Negative) Urine Ketones (Negative) Urine Blood (Negative) Urine Nitrite (Negative) Urine Bilirubin (Negative) Urine Urobilinogen (Negative) Ur Leukocyte Esterase (Negative) SARS-CoV-2, RNA, NAAT (NEGATIVE) Administered Medications Discontinued Medications Sodium Chloride (Nss) 500 mls @ 999 mls/hr IV .Q31M STA Stop: 12/18/21 09:10 Last Infusion: 12/18/21 10:35 Dose: 0 mls/hr Documented By: Admin: 12/18/21 09:06 Dose: 999 mls/hr Documented By: ALF Insulin Human Regular (Novolin-R Insulin Per Unit Charge) 6 units IV NOW STA Stop: 12/18/21 08:41 Last Admin: 12/18/21 09:15 Dose: 6 units Documented By: ALF Co-signed By: KILO Morphine Sulfate (Morphine Sulfate 4 Mg/Ml 1 Ml Carp\\Vial) 4 mg IV NOW STA Stop: 12/18/21 09:09 Last Admin: 12/18/21 09:15 Dose: 4 mg Documented By: ALF Ondansetron HCl (Ondansetron Inj 2 Mg/Ml 2 Ml Vial) 4 mg IV NOW STA Stop: 12/18/21 09:09 Last Admin: 12/18/21 09:15 Dose: 4 mg Documented By: ALF Oxycodone HCl (Oxycodone Hcl Ir 5 Mg Tab (Immediate Release)) 5 mg PO NOW STA Stop: 12/18/21 08:22 Last Admin: 12/18/21 08:25 Dose: 5 mg Documented By: ALF Imaging Data Radiologist's Impression: Chest X-Ray 12/18/21 08:21 XR chest 1V portable HISTORY: 66 years-old Male fall acute chest trauma status post fall COMPARISON: Chest radiograph 04/18/2021 TECHNIQUE: Portable AP view of the chest FINDINGS: Cardiomediastinal and hilar silhouettes are within normal limits. No pneumothorax, pleural effusion, airspace consolidation or overt pulmonary edema. Degenerative changes of the shoulders and spine. Surgical projects over the lateral right lung base. IMPRESSION: No acute process. ACT 112: Negative or not required by law. The above report was generated using voice recognition software. It may contain grammatical, syntax or spelling errors. Electronically signed by: Justin Montez M.D. 12/18/2021 9:[address] 12/18/21 08:21 CT head/brain wo con CLINICAL HISTORY: 66 years-old Male with fall. Acute head trauma status post fall TECHNIQUE: Multiple axial CT images of the head were obtained without contrast. A dose lowering technique was utilized adhering to the principles of ALARA. CT DOSE: 691.05 mGy.cm COMPARISON: Head CT 04/18/2021 FINDINGS: No acute intracranial hemorrhage, midline shift, intracranial mass, hydrocephalus, territorial ischemia or new abnormal extra-axial collection. Age- related involutional changes with ex vacuo ventriculomegaly. White matter hypodensities suggestive of chronic microvascular ischemic disease. Mildly motion degraded exam. Unchanged mild prominence of the right extra-axial space. The calvarium is intact. The paranasal sinuses, mastoid air cells, and middle ear cavities are clear. IMPRESSION: No acute intracranial abnormality or calvarial fracture. ACT 112: Negative or not required by law. The above report was generated using voice recognition software. It may contain grammatical, syntax or spelling errors. Electronically signed by: Justin Montez M.D. 12/18/2021 10:26 AM Hip/Pelvis X-Ray 12/18/21 08:21 XR hip LT 2V w pelvis HISTORY: 66 years-old Male fall acute pain of the pelvis and left hip status post trauma COMPARISON: 07/29/2021 TECHNIQUE: AP view of the pelvis with 2 views of the left hip Brachy therapy seeds of the prostate. Moderate fecal retention. There is mild to moderate osteoarthritis of the hips. No dislocation or avascular necrosis. There is an acute impacted subcapital fracture of the left femur demonstrating approximately 10 mm of impaction superior lateral displacement of 1.3 cm. Arterial calcifications. Moderate fecal retention. IMPRESSION: Acute impacted and mildly displaced subcapital fracture of the left femur. ACT 112: Negative or not required by law. The above report was generated using voice recognition software. It may contain grammatical, syntax or spelling errors. Electronically signed by: Justin Montez M.D. 12/18/2021 9:23 AM Knee X-Ray 12/18/21 08:21 XR knee LT 1 or 2V routine HISTORY: 66 years-old Male fall acute pain of the left knee status post fall COMPARISON: .Knee radiographs 08/23/2021 TECHNIQUE: 2 views of the left knee FINDINGS: Moderate medial with mild to moderate patellofemoral and lateral compartment osteoarthritis. No acute fracture, dislocation or large joint effusion. Prior ACL repair. Arterial calcifications. IMPRESSION: Tricompartmental osteoarthritis without acute fracture or dislocation. ACT 112: Negative or not required by law. The above report was generated using voice recognition software. It may contain grammatical, syntax or spelling errors. Electronically signed by: Justin Montez M.D. 12/18/2021 9:20 AM Discharge Plan Visit Data Chief Complaint: Back Injury/Pain Stated Complaint: LOWER LEFT BACK & L KNEE PAIN ED Provider: Reza Savage Discharge Problem: Subcapital fracture of left hip, Acute hyperglycemia Forms Stand Alone Forms: [facility] Prescriptions Prescriptions: No Action (DME) Wheeled Walker Misc See Rx Instructions .Route Qty: 1 0RF Rx Instructions: As directed. with seat if possible potassium chloride 20 mEq tablet,ER particles/crystals 20 meq PO DAILY Qty: 90 3RF acetaminophen 325 mg capsule 650 mg PO Q6H PRN (Reason: Pain) Qty: 90 5RF Rx Instructions: 325 mg PO Q6H PRN; magnesium oxide 400 mg magnesium tablet 400 mg PO DAILY Qty: 30 11RF (DME) Novofine Autocover 30 gauge x 1/3" needle See Rx Instructions .Route Qty: 100 11RF Rx Instructions: use for insulin injection diclofenac sodium 75 mg tablet,delayed release (DR/EC) 75 mg PO BID PRN (Reason: pain) Qty: 60 0RF atorvastatin 40 mg tablet 40 mg PO QPM Qty: 90 3RF levothyroxine 125 mcg tablet 125 mcg PO DAILY Qty: 30 11RF lisinopril 40 mg tablet 40 mg PO DAILY Qty: 30 11RF Xarelto 20 mg tablet 20 mg PO HS Qty: 30 11RF metformin 500 mg tablet extended release 24hr 500 mg PO BIDM Qty: 60 11RF metoprolol tartrate 25 mg tablet 25 mg PO BIDM Qty: 60 11RF amlodipine 2.5 mg tablet 5 mg PO DAILY Qty: 180 3RF triamterene-hydrochlorothiazid 37.5-25 mg tablet 1 tab PO DAILY Qty: 90 3RF insulin glargine [Lantus Solostar U-100 Insulin] 100 unit/mL (3 mL) insulin pen 15 unit subcut BID 30 Days Qty: 9 3RF polyethylene glycol 3350 [Miralax] 17 gram/dose powder 17 g PO BID PRN (Reason: constipation) Qty: 850 11RF insulin aspart U-100 [Novolog Flexpen U-100 Insulin] 100 unit/mL (3 mL) insulin pen See Rx Instructions .ROUTE .COMPLEX Rx Instructions: Inject 17 units with breakfast, and inject 9 units with Lunch and 14 UNITS AT supper.; SS: 70-90= -1 unit 91-150= 0 unit 151-185= 1 unit 186-220= 2 unit 221-255= 3 unit 256-290= 4 unit 291-325= 5 unit 326-360= 6 unit 361-395= 7 unit 396-430= 8 unit 431-465= 9 unit 466-500= 10 unit 501-535= 11unit quetiapine 25 mg tablet 12.5 mg PO HS PRN (Reason: Psychosis) Rx Instructions: 25 mg PO TAKE 1/2 TABLET AT BEDTIME FOR PSYCHOSIS; Referrals Referrals: Jg Valdez DO [Primary Care Provider] - : Subcapital fracture of left hip Qualifiers: Encounter type: initial encounter Fracture type: closed Qualified Code(s): S72.012A - Unspecified intracapsular fracture of left femur, initial encounter for closed fracture
[2021-12-18] MEDS ORDERED: SODIUM CHLORIDE 0.9% 500 ML IV STA (08:40)
[2021-12-18] MEDS ORDERED: NovoLIN-R INSULIN PER UNIT CHARGE IV STA (08:40)
[2021-12-18] MEDS ORDERED: ONDANSETRON INJ 2 MG/ML 2 ML VIAL IV STA (09:08)
[2021-12-18] MEDS ORDERED: MoRPHine SULFATE 4 MG/ML 1 ML CARP\\VIAL IV STA (09:08)
[2021-12-18 09:19] LABS: Basophils # (auto) 0.03 K/uL (0-0.2); Basophils % (auto) 0.3 %; Eosinophils # (auto) 0.02 K/uL (0-0.50); Eosinophils % (auto) 0.2 %; Hematocrit (blood only) 38.2 % (40.1-51.0); Hemoglobin 13.9 g/dl (14.0-18.0); Immature Granulocytes # (auto) 0.06 K/uL (0.00-0.02); Immature Granulocytes % (auto) 0.5 %; Lymphocytes # (auto) 0.83 K/uL (1.2-3.4); Lymphocytes % (auto) 7.4 %; Mean Corpuscular Hemoglobin 30.9 pg (25.0-34.0); Mean Corpuscular Hgb Conc 36.4 g/dL (32.0-36.0); Mean Corpuscular Volume 84.9 fL (80.0-100.0); Mean Platelet Volume 9.5 fL (9.4-12.4); Monocytes % (auto) 7.2 %; Neutrophils # (auto) 9.44 K/uL (1.4-6.5); Neutrophils % (auto) 84.4 %; Platelet Count 189 K/uL (130-400); RDW Coefficient of Variation 12.3 % (11.5-14.5); RDW Standard Deviation 37.9 fL (36.4-46.3); White Blood Count 11.18 K/ul (4.8-10.8)
--- NOTE | 2021-12-18 09:19 | XRay Report ---
XR chest 1V portable HISTORY: 66 years-old Male fall acute chest trauma status post fall COMPARISON: Chest radiograph 04/18/2021 TECHNIQUE: Portable AP view of the chest FINDINGS: Cardiomediastinal and hilar silhouettes are within normal limits. No pneumothorax, pleural effusion, airspace consolidation or overt pulmonary edema. Degenerative changes of the shoulders and spine. Krystina gical projects over the lateral right lung base. IMPRESSION: No acute process. ACT 112: Negative or not required by law. The above report was generated using voice recognition software. It may contain grammatical, syntax o r spelling errors. Electronically signed by: Justin Montez M.D. 12/18/2021 9:18 AM
--- NOTE | 2021-12-18 09:22 | XRay Report ---
XR knee LT 1 or 2V routine HISTORY: 66 years-old Male fall acute pain of the left knee status post fall COMPARISON: .Knee radiographs 08/23/2021 TECHNIQUE: 2 views of the left knee FINDINGS: Moderate medial with mild to moderate patellofemoral and lateral compartment osteoarthritis. No acute fracture, dislocation or large joint effusion. Prior ACL repair. Arterial calcifications. IMPRESSION: Tricompartmental osteoarthritis without acute fracture or dislocation. ACT 112: Negative or not required by law. The above report was generated using voice recognition software. It may contain grammatical, syntax o r spelling errors. Electronically signed by: Justin Montez M.D. 12/18/2021 9:20 AM
--- NOTE | 2021-12-18 09:25 | XRay Report ---
XR hip LT 2V w pelvis HISTORY: 66 years-old Male fall acute pain of the pelvis and left hip status post trauma COMPARISON: 07/29/2021 TECHNIQUE: AP view of the pelvis with 2 views of the left hip Brachy therapy seeds of the prostate. Moderate fecal retention. There is mild to moderate osteoarthri tis of the hips. No dislocation or avascular necrosis. There is an acute impacted subcapital fracture of the left femur demonstrating approximately 10 mm of impaction superior lateral displacement of 1. 3 cm. Arterial calcifications. Moderate fecal retention. IMPRESSION: Acute impacted and mildly displaced subcapital fracture of the left femur. ACT 112: Negative or not required by law. The above report was generated using voice recognition software. It may contain grammatical, syntax o r spelling errors. Electronically signed by: Justin Montez M.D. 12/18/2021 9:23 AM
[2021-12-18 09:30] LABS: INR 1.2 (0.9-1.1); Partial Thromboplastin Time 27.4 Seconds (21.0-31.0); Prothrombin Time 12.7 Seconds (9.0-12.0)
[2021-12-18 09:46] LABS: Alanine Aminotransferase 22 U/L (7-52); Albumin Globulin Ratio 1.5 (0.9-2); Albumin Level 3.9 gm/dl (3.4-5.0); Alkaline Phosphatase 110 U/L (34-104); Anion Gap 17 (3-11); Aspartate Aminotransferase 14 U/L (13-39); Bilirubin,Total 1.5 mg/dl (0.2-1.0); Blood Urea Nitrogen 24 mg/dl (6-23); Calcium 9.1 mg/dl (8.5-10.1); Carbon Dioxide 19 mmol/L (21-32); Chloride 97 mmol/L (98-107); Creatine Kinase 38 U/L (30-223); Est GFR (African American) 103.3 ml/min; Est GFR (Non-African American) 89.1 ml/min; Globulin 2.6 gm/dl (2.5-4.0); Glucose 471 mg/dl (70-99(Fasting)); Lipase 16 U/L (11-82); Sodium 133 mmol/L (136-145); Total Protein 6.5 gm/dl (6.0-8.3); Troponin I High Sensitivity 6.1 pg/ml (0-20)
--- NOTE | 2021-12-18 10:07 | History & Physical Report ---
Date of Service December 18, 2021 Assessment & Plan (1) Subcapital fracture of left hip: Plan: - Left hip/buttocks/knee pain without gross deformity or leg shortening. - XR: Acute impacted and mildly displaced subcapital fracture of the left femur. - Neurovascularly intact. NV checks q4h. - Bedrest/nonweightbearing for now. - Ortho consult placed, appreciate their assistance at recommendations. - Xarelto dose last evening. - Tylenol, morphine for pain control. - NPO pending ortho consult, can likely place a diet this afternoon. - RCRI: Class II risk, 6.0% 30-day risk of adverse event (insulin use). - Type/screen ordered. (2) Acute hyperglycemia: Plan: - Presented with BSG 470, sugar was unreadable (high) this morning at [facility], did receive 15 units of Lantus and 26 units NovoLog. - Received 6 units of regular insulin in ED, recheck sugar 375. - Will give patient regular scheduled Lantus 15 units SSI schedule. - Will have pharmacy glycemic consult placed, patient has labile sugars and diabetic coma last year. (3) Controlled type 2 diabetes mellitus, with long-term current use of insulin: Plan: - Continue Lantus BID with Accuchecks ACHS + SSI. - A1c 8.5% in November. - Appreciate pharmacy assistance with insulin management. (4) Paroxysmal A-fib: Plan: - First diagnosed in 2020, remains on Xarelto 20 mg at bedtime, as well as metoprolol. - Patient in normal sinus rhythm today, apparently has only been in when hospitalized for other illnesses, thought to be due to high stress environment. - Last dose Xarelto last evening. - Holding further Xarelto dosing given need for hip repair. (5) Hypertension: Plan: - Continue amlodipine, Toprol, lisinopril, HCTZ for BP control. - Normotensive on admission. (6) Hyperlipidemia: Plan: - Continue statin. (7) Hypothyroidism: Plan: - Continue Levothyroxine. Plan - Admit to med/surg. - SCDs for VTE ppx. - Full Code. History of Present Illness Chief Complaint: fall this morning with left leg pain Primary Care Provider: Jg Valdez DO Lars Kumar is a 66-year-old male with past medical history significant for paroxysmal A. fib on Xarelto, hypertension, hyperlipidemia, DM2, hypothyroidism, and heavy tobacco chew use who presents today from [facility] this morning after a fall. He apparently fell out of bed and was found on the floor by staff this morning. He denies loss of consciousness or hitting his head, he does not have any neck or back pain and denies a headache but does have very severe pain in his left buttocks when standing. Due to pain, his mobility in the left leg is limited. No pain in the right leg and is able to move this without diffi culty. X-ray of the left hip does show a subcapital left hip fracture. X-ray of the left knee does not show any fracture or dislocation at this level. Allergies Allergy/AdvReac Type Severity Reaction Status Date / Time No Known Allergies Allergy Verified 09/16/21 09:49 Home Medications Medication Instructions Recorded Confirmed Type quetiapine 25 mg tablet 12.5 mg PO HS PRN Psychosis 11/18/20 12/18/21 History Wheeled Walker #1 ea 03/21/21 09/16/21 Rx potassium chloride 20 mEq 20 meq PO DAILY #90 tabs 05/12/21 12/18/21 Rx tablet,extended release(part/cryst) acetaminophen 325 mg capsule 650 mg PO Q6H PRN Pain #90 caps 05/18/21 12/18/21 Rx magnesium oxide 400 mg PO DAILY #30 tabs 05/24/21 12/18/21 Rx pen needle, diabetic, safety 30 #100 ea 07/28/21 09/16/21 Rx gauge x 1/3" (Novofine Autocover) insulin aspart U-100 100 unit/mL See Rx Instructions .Route .COMPLEX 09/16/21 12/18/21 History (3 mL) subcutaneous pen (Novolog Flexpen U-100 Insulin aspart) diclofenac sodium 75 mg 75 mg PO BID PRN pain #60 tabs 09/28/21 12/18/21 Rx tablet,delayed release atorvastatin 40 mg tablet 40 mg PO QPM #90 tabs 10/03/21 12/18/21 Rx levothyroxine 125 mcg tablet 125 mcg PO DAILY #30 tabs 10/03/21 12/18/21 Rx lisinopril 40 mg tablet 40 mg PO DAILY #30 tabs 10/03/21 12/18/21 Rx metformin 500 mg tablet,extended 500 mg PO BIDM #60 tabs 10/03/21 12/18/21 Rx release 24hr metoprolol tartrate 25 mg tablet 25 mg PO BIDM #60 tabs 10/03/21 12/18/21 Rx rivaroxaban 20 mg tablet (Xarelto) 20 mg PO HS #30 tabs 10/03/21 12/18/21 Rx amlodipine 2.5 mg tablet 5 mg PO DAILY #180 tabs 10/04/21 12/18/21 Rx insulin glargine 100 unit/mL (3 15 unit (0.15 mL) subcut BID 30 10/04/21 12/18/21 Rx mL) subcutaneous pen (Lantus days #9 mL Solostar U-100 Insulin) triamterene 37.5 1 tab PO DAILY #90 tabs 10/04/21 12/18/21 Rx mg-hydrochlorothiazide 25 mg tablet polyethylene glycol 3350 17 17 g PO BID PRN constipation #850 12/16/21 12/18/21 Rx gram/dose oral powder (Miralax) grams Past Med/Surg History Medical History Collapse Cough COVID-19 History of alcoholism History of prostate cancer Hyperlipidemia Hypoglycemia Hypothyroidism Insomnia Nausea Nicotine abuse Seborrheic dermatitis of scalp Sore throat Unresponsive episode Vitamin D deficiency Weakness Surgical History History of left knee surgery History of shoulder surgery Left Family History Mother Cancer Grandmother (Paternal) Stroke Grandfather (Paternal) Stroke Other Myocardial infarction Denies family history of Ovarian cancer Prostate cancer Breast cancer Colorectal cancer Social History Smoking Status: Never smoker Tobacco Type: Smokeless Tobacco (Dip or Chew) Age Started Using Tobacco: 16; Age Quit Using Tobacco: 26; Second Hand Exposure: No; Hx Alcohol Use: No Hx Substance Use: No Preferred Language: Urdu Communication Ability: Effective Services Manager Required: No Beliefs That Will Affect Care: None marital status: Single Current Living Situation: Personal Care Facility 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 How many Children do You have: 0 Feels Safe at Home: Yes Childhood Exposure to Second-Hand Smoke: Yes caffeine: Yes (iced tea ) Dental Care, Regularly: No Physical Activity Frequency: Does not Exercise Seatbelt Use: always Sunscreen Use: No Assistive Devices: Walker Review of Systems Review of Systems: Constitutional: No fever/chills, weakness, fatigue, myalgias, anorexia, night sweats Eyes: No diplopia, no worsening or blurred vision ENT: normal hearing, no trouble swallowing Respiratory: No cough, sputum, dyspnea at rest or on exertion Cardiovascular: No chest pain, tightness or palpitations Abdomen: No pain, nausea, vomiting, diarrhea or constipation : Denies dysuria, hematuria, increased urgency/frequency, urinary retention Musculoskeletal: Left buttocks and leg pain; no other joint pain, calves symmetrical without pain or swelling Neurologic: No weakness, numbness/tingling, or balance problems Psychiatric: No anxiety or depression Skin: No rash or itch Physical Exam Physical Exam: General: awake, alert, no apparent distress Head: Normocephalic, atraumatic ENT: PERRL, EOMI, no pharyngeal exudate, mucous membranes moist Chest: Clear to auscultation, on room air, no adventitious breath sounds Cardiac: Regular rate and rhythm, no murmur, no JVD, normal peripheral pulses, good capillary refill Abdominal: NABS x 4 quadrants, soft, nontender to palpation, no rebound, guarding or tenderness Extremities: Left leg tender to palpation at the knee and hip, without any obvious deformity or leg shortening; pulses are intact in bilateral lower extremities, both extremities are warm and sensation intact Psych: Normal mood and affect Neuro: AAO x 3, strength intact bilaterally and rated 5/5, no motor deficits, speech is clear, no peripheral sensory deficits Skin: no rash or erythema Results & Data Results & Data ([facility]) Vital Signs (Past 12 Hours) Vital Signs Temp Pulse Pulse Resp BP BP Pulse Ox 12/18/21 09:07 69 18 96 12/18/21 09:07 63 18 120/80 96 12/18/21 08:14 36.5 C 73 18 126/105 H 98 O2 Del Method 12/18/21 09:07 Room Air 12/18/21 09:07 Nasal Cannula 12/18/21 08:14 Room Air Laboratory Results Abnormal lab results 12/18/21 12/18/21 12/18/21 Range/Units 08:33 09:05 09:05 WBC 11.18 H (4.8-10.8) K/ul RBC 4.50 L (4.63-6.08) M/uL Hgb 13.9 L (14.0-18.0) g/dl Hct 38.2 L (40.1-51.0) % MCHC 36.4 H (32.0-36.0) g/dL Neut # (Auto) 9.44 H (1.4-6.5) K/uL Lymph # (Auto) 0.83 L (1.2-3.4) K/uL Immature Gran # (Auto) 0.06 H (0.00-0.02) K/uL PT 12.7 H (9.0-12.0) Seconds INR 1.2 H (0.9-1.1) Sodium (136-145) mmol/L Chloride (98-107) mmol/L Carbon Dioxide (21-32) mmol/L Anion Gap (3-11) BUN (6-23) mg/dl BUN/Creatinine Ratio (10-20) Glucose (70-99(Fasting)) mg/dl POC Glucose 470 H* (70-99) mg/dl Total Bilirubin (0.2-1.0) mg/dl Alkaline Phosphatase (34-104) U/L Ur Specific [place] (1.000-1.030) Urine Glucose (UA) (Negative) Urine Ketones (Negative) 12/18/21 12/18/21 12/18/21 Range/Units 09:05 10:00 10:03 WBC (4.8-10.8) K/ul RBC (4.63-6.08) M/uL Hgb (14.0-18.0) g/dl Hct (40.1-51.0) % MCHC (32.0-36.0) g/dL Neut # (Auto) (1.4-6.5) K/uL Lymph # (Auto) (1.2-3.4) K/uL Immature Gran # (Auto) (0.00-0.02) K/uL PT (9.0-12.0) Seconds INR (0.9-1.1) Sodium 133 L (136-145) mmol/L Chloride 97 L (98-107) mmol/L Carbon Dioxide 19 L (21-32) mmol/L Anion Gap 17 H (3-11) BUN 24 H (6-23) mg/dl BUN/Creatinine Ratio 27.0 H (10-20) Glucose 471 H* (70-99(Fasting)) mg/dl POC Glucose 375 H* (70-99) mg/dl Total Bilirubin 1.5 H (0.2-1.0) mg/dl Alkaline Phosphatase 110 H (34-104) U/L Ur Specific [place] 1.034 H (1.000-1.030) Urine Glucose (UA) 3+ H (Negative) Urine Ketones 4+ H (Negative) Diagnostic Findings Chest X-Ray 12/18/21 08:21 XR chest 1V portable HISTORY: 66 years-old Male fall acute chest trauma status post fall COMPARISON: Chest radiograph 04/18/2021 TECHNIQUE: Portable AP view of the chest FINDINGS: Cardiomediastinal and hilar silhouettes are within normal limits. No pneumoth orax, pleural effusion, airspace consolidation or overt pulmonary edema. Degenerative changes of the shoulders and spine. Surgical projects over the lateral right lung base. IMPRESSION: No acute process. ACT 112: Negative or not required by law. The above report was generated using voice recognition software. It may contain grammatical, syntax or spelling errors. Electronically signed by: Justin Montez M.D. 12/18/2021 9:[address] 12/18/21 08:21 CT head/brain wo con CLINICAL HISTORY: 66 years-old Male with fall. Acute head trauma status post fall TECHNIQUE: Multiple axial CT images of the head were obtained without contrast. A dose lowering technique was utilized adhering to the principles of ALARA. CT DOSE: 691.05 mGy.cm COMPARISON: Head CT 04/18/2021 FINDINGS: No acute intracranial hemorrhage, midline shift, intracranial mass, hydrocephalus, territorial ischemia or new abnormal extra-axial collection. Age- related involutional changes with ex vacuo ventriculomegaly. White matter hypodensities suggestive of chronic microvascular ischemic disease. Mildly motion degraded exam. Unchanged mild prominence of the right extra-axial space. The calvarium is intact. The paranasal sinuses, mastoid air cells, and middle ear cavities are clear. IMPRESSION: No acute intracranial abnormality or calvarial fracture. ACT 112: Negative or not required by law. The above report was generated using voice recognition software. It may contain grammatical, syntax or spelling errors. Electronically signed by: Justin Montez M.D. 12/18/2021 10:26 AM Hip/Pelvis X-Ray 12/18/21 08:21 XR hip LT 2V w pelvis HISTORY: 66 years-old Male fall acute pain of the pelvis and left hip status post trauma COMPARISON: 07/29/2021 TECHNIQUE: AP view of the pelvis with 2 views of the left hip Brachy therapy seeds of the prostate. Moderate fecal retention. There is mild to moderate osteoarthritis of the hips. No dislocation or avascular necrosis. There is an acute impacted subcapital fracture of the left femur demonstrating approximately 10 mm of impaction superior lateral displacement of 1.3 cm. Arterial calcifications. Moderate fecal retention. IMPRESSION: Acute impacted and mildly displaced subcapital fracture of the left femur. ACT 112: Negative or not required by law. The above report was generated using voice recognition software. It may contain grammatical, syntax or spelling errors. Electronically signed by: Justin Montez M.D. 12/18/2021 9:23 AM Knee X-Ray 12/18/21 08:21 XR knee LT 1 or 2V routine HISTORY: 66 years-old Male fall acute pain of the left knee status post fall COMPARISON: .Knee radiographs 08/23/2021 TECHNIQUE: 2 views of the left knee FINDINGS: Moderate medial with mild to moderate patellofemoral and lateral compartment osteoarthritis. No acute fracture, dislocation or large joint effusion. Prior ACL repair. Arterial calcifications. IMPRESSION: Tricompartmental osteoarthritis without acute fracture or dislocation. ACT 112: Negative or not required by law. The above report was generated using voice recognition software. It may contain grammatical, syntax or spelling errors. Electronically signed by: Justin Montez M.D. 12/18/2021 9:20 AM ECG Additional Comments: Normal sinus rhythm Right bundle branch block Abnormal ECG When compared with ECG of 22-APR-2021 22:50, No significant change was found. Code Status & VTE Plan Code Status Full Code. Supervising Physician Co-Signing Physician Notes Patient seen and examined, chart reviewed, case discussed with Josie Stephens PA-C and I agree with the assessment and plan as above except as otherwise noted Labs and images reviewed Is a 66-year-old male who presents from [facility] after a fall. No loss of consciousness, no neck/back pain or headache. Does have severe pain in left buttocks. Did not have loss of consciousness. History of A. fib on anticoagulation, hypertension, hyperlipidemia, DM2, hypothyroidism, tobacco use. Patient reports he slipped and fell on his butt and has pain in his left buttock which is "okay "at rest, but hurts with any attempted movement. Denies chest pain, shortness of breath, lightheadedness, dizziness, syncope, presyncope. Denies numbness and tingling in his hands or feet, denies shooting pain down his left leg. Able to wiggle toes and dorsiflex/plantarflex ankles bilaterally. Sensation to soft touch intact in hands and feet without asymmetry. Cap refill in the feet brisk bilaterally. Left leg is externally rotated and flexed. Subcapital left femur fracture: Ortho consulted. Nonweightbearing at this time. Pain control as above. A. fib on anticoagulation: Hold Xarelto pending orthopedic evaluation, currently in sinus rhythm with normal rate, continue metoprolol. DM2: History of very labile sugars with diabetic, and rapid swings to hypoglycemia. Pharmacy consult placed for assistance with management, patient currently n.p.o. switched to basal bolus dosing based on total daily dose at [facility] with pharmacy consulted given lability. Received 6 units of IV insulin for hyperglycemia greater than 400, downtrending on recheck. Starting scale. A1c pending. Hypertension: Hold lisinopril day of surgical intervention, continue other antihypertensives. Normotensive at time of assessment. BP is normal on admission. PG Care Time/CCT Total # of Minutes Spent Total Time Spent with Patient: Total time spent is greater than 50% in coordination of care (as documented) at patient's floor/unit and/or counseling patient: Coding Level of Care Code 60531 Initial Inpt Care Lvl 3 Diagnoses Subcapital fracture of left hip S72.012A Encounter type: initial encounter Fracture type: closed Acute hyperglycemia R73.9 Controlled type 2 diabetes mellitus, with long-term current use of insulin E11.9; Z79.4 Paroxysmal A-fib I48.0 Hypertension I10 Hypertension type: unspecified Hyperlipidemia E78.5 Hypothyroidism E03.9 (1) Subcapital fracture of left hip Encounter type: initial encounter Fracture type: closed Qualified Code(s): S72.012A - Unspecified intracapsular fracture of left femur, initial encounter for closed fracture (2) Hypertension Hypertension type: unspecified Qualified Code(s): I10 - Essential (primary) hypertension
[2021-12-18 10:10] LABS: Appearance Urine Clear (Clear); Bilirubin Urine Negative (Negative); Blood Urine Negative (Negative); Color Urine Yellow; Glucose Urine UA 3+ (Negative); Ketones Urine 4+ (Negative); Leukocyte Esterase Urine Negative (Negative); Nitrite Urine Negative (Negative); Protein Urine Negative (Negative); Specific Gravity Urine 1.034 (1.000-1.030); Urobilinogen Urine Negative (Negative); pH Urine 5.5 (4.5-7.5)
[2021-12-18] MEDS ORDERED: SODIUM CHLORIDE 0.9% 1000ML 500 ML IV ONE (10:10)
--- NOTE | 2021-12-18 10:28 | CT Scan Report ---
CT head/brain wo con CLINICAL HISTORY: 66 years-old Male with fall. Acute head trauma status post fall TECHNIQUE: Multiple axial CT images of the head were obtained without contrast. A dose lowering tech nique was utilized adhering to the principles of ALARA. CT DOSE: 691.05 mGy.cm COMPARISON: Head CT 04/18/2021 FINDINGS: No acute intracranial hemorrhage, midline shift, intracranial mass, hydrocephalus, territorial ischem ia or new abnormal extra-axial collection. Age-related involutional changes with ex vacuo ventriculom egaly. White matter hypodensities suggestive of chronic microvascular ischemic disease. Mildly motion degraded exam. Unchanged mild prominence of the right extra-axial space. The calvarium is intact. The paranasal sinuses, mastoid air cells, and middle ear cavities are clear . IMPRESSION: No acute intracranial abnormality or calvarial fracture. ACT 112: Negative or not required by law. The above report was generated using voice recognition software. It may contain grammatical, syntax o r spelling errors. Electronically signed by: Justin Montez M.D. 12/18/2021 10:26 AM
[2021-12-18] MEDS ORDERED: NICOTINE 21 MG/24 HR TDSY TD ONE (11:15)
[2021-12-18] MEDS ORDERED: PHARMACY GLYCEMIC MGMT CONSULT PRN ×3 (11:50→13:25)
--- NOTE | 2021-12-18 12:42 | Electrocardiogram Report ---
Test Reason : Blood Pressure : / mmHG Vent. Rate : 075 BPM Atrial Rate : 075 BPM P-R Int : 182 ms QRS Dur : 130 ms QT Int : 430 ms P-R-T Axes : 081 -19 027 degrees QTc Int : 480 ms Poor data quality, interpretation may be adversely affected Normal sinus rhythm Right bundle branch block Abnormal ECG When compared with ECG of 22-APR-2021 22:50, No significant change was found Confirmed by Jeremy Nguyen ([id number]) on 12/18/2021 12:41:36 PM Referred By: REFERRED SELF Confirmed By:Donald Nguyen
[2021-12-18] MEDS ORDERED: GLUCOSE 40% GEL 15 GM TUBE PO PRN (12:55)
[2021-12-18] MEDS ORDERED: MoRPHine SULFATE 4 MG/ML 1 ML CARP\\VIAL IV PRN (12:55)
[2021-12-18] MEDS ORDERED: GLUCOSE 10 TAB/TUBE PO PRN (12:55)
[2021-12-18] MEDS ORDERED: QUEtiapine FUMARATE 25 MG TABLET PO PRN (12:55)
[2021-12-18] MEDS ORDERED: CARBOHYDRATES FOR HYPOGLYCEMIA PO PRN (12:55)
[2021-12-18] MEDS ORDERED: DEXTROSE 50% 50 ML SYRINGE IV PRN (12:55)
[2021-12-18] MEDS ORDERED: ACETAMINOPHEN 325 MG TAB PO PRN (12:55)
[2021-12-18] MEDS ORDERED: POLYETHYLENE (MIRALAX) 17 GM PACK PO PRN (12:55)
[2021-12-18] MEDS ORDERED: NALOXONE HCL 0.4 MG/1 ML VIAL/CARP IV PRN (12:55)
[2021-12-18] MEDS ORDERED: GLUCAGON FOR INJ 1 MG VIAL SQ PRN (12:55)
[2021-12-18] MEDS ORDERED: ONDANSETRON INJ 2 MG/ML 2 ML VIAL IV PRN (12:55)
[2021-12-18] MEDS ORDERED: INSULIN ASPART PER UNIT SC SCH (12:55)
[2021-12-18] MEDS ORDERED: Patient's HEIGHT &/or WEIGHT Needed SCH (13:15)
--- NOTE | 2021-12-18 13:23 | Anesthesiology Consultation ---
Date of Service December 18, 2021 Assessment & Plan Chart Review Chart Review: Acceptable Risk for Surgery and Patient NOT seen in Pre Admission Testing Consults Requested none ASA ASA4 Proposed Anesthesia Anesthesia Type: General History Height/Weight Height: 5 ft 11 in Allergies Allergy/AdvReac Type Severity Reaction Status Date / Time No Known Allergies Allergy Verified 09/16/21 09:49 Medications Home Medications Medication Instructions Recorded Confirmed Last Taken quetiapine 25 mg tablet 12.5 mg PO HS PRN Psychosis 11/18/20 12/18/21 Unknown Wheeled Walker #1 ea 03/21/21 09/16/21 Unknown potassium chloride 20 mEq 20 meq PO DAILY #90 tabs 05/12/21 12/18/21 12/18/21 tablet,extended release(part/cryst) acetaminophen 325 mg capsule 650 mg PO Q6H PRN Pain #90 caps 05/18/21 12/18/21 Unknown magnesium oxide 400 mg PO DAILY #30 tabs 05/24/21 12/18/21 12/18/21 pen needle, diabetic, safety 30 #100 ea 07/28/21 09/16/21 Unknown gauge x 1/3" (Novofine Autocover) insulin aspart U-100 100 unit/mL See Rx Instructions .Route .COMPLEX 09/16/21 12/18/21 12/18/21 (3 mL) subcutaneous pen (Novolog 26 units this Flexpen U-100 Insulin aspart) AM diclofenac sodium 75 mg 75 mg PO BID PRN pain #60 tabs 09/28/21 12/18/21 Unknown tablet,delayed release atorvastatin 40 mg tablet 40 mg PO QPM #90 tabs 10/03/21 12/18/21 12/17/21 levothyroxine 125 mcg tablet 125 mcg PO DAILY #30 tabs 10/03/21 12/18/21 12/18/21 lisinopril 40 mg tablet 40 mg PO DAILY #30 tabs 10/03/21 12/18/21 12/18/21 metformin 500 mg tablet,extended 500 mg PO BIDM #60 tabs 10/03/21 12/18/21 12/18/21 release 24hr metoprolol tartrate 25 mg tablet 25 mg PO BIDM #60 tabs 10/03/21 12/18/21 12/18/21 rivaroxaban 20 mg tablet (Xarelto) 20 mg PO HS #30 tabs 10/03/21 12/18/21 12/17/21 21:00 amlodipine 2.5 mg tablet 5 mg PO DAILY #180 tabs 10/04/21 12/18/21 12/18/21 insulin glargine 100 unit/mL (3 15 unit (0.15 mL) subcut BID 30 10/04/21 12/18/21 12/18/21 mL) subcutaneous pen (Lantus days #9 mL Solostar U-100 Insulin) triamterene 37.5 1 tab PO DAILY #90 tabs 10/04/21 12/18/21 12/18/21 mg-hydrochlorothiazide 25 mg tablet polyethylene glycol 3350 17 17 g PO BID PRN constipation #850 12/16/21 12/18/21 Unknown gram/dose oral powder (Miralax) grams Past Medical History Medical History Collapse Cough COVID-19 History of alcoholism History of prostate cancer Hyperlipidemia Hypoglycemia Hypothyroidism Insomnia Nausea Nicotine abuse Seborrheic dermatitis of scalp Sore throat Unresponsive episode Vitamin D deficiency Weakness Exercise / Class Metabolic Activity III < 4 Walking/Shop/Light housework Past Family History Family History Mother Cancer Grandmother (Paternal) Stroke Grandfather (Paternal) Stroke Other Myocardial infarction Denies family history of Ovarian cancer Prostate cancer Breast cancer Colorectal cancer Past Surgical History Surgical History History of left knee surgery History of shoulder surgery Left Past Anesthesia History No Hx of Anesthesia Complications and No Family Hx of Anesthesia Complications History of PONV No Hx of PONV and No Hx of Motion Sickness Social History Smoking Status: Never smoker tobacco type: smokeless tobacco Hx Alcohol Use: No alcohol intake frequency: other Hx Substance Use: No substance use type: does not use Physical Exam Vital Signs Last Vital Signs Temp 36.4 C L 12/18/21 12:59 Pulse 70 12/18/21 12:59 Resp 16 12/18/21 12:59 BP 133/84 12/18/21 12:59 Pulse Ox 96 12/18/21 12:59 O2 Del Method 12/18/21 11:39 Testing Laboratory Results 12/18/21 09:05 12/18/21 09:05 PT 12.7 Seconds (9.0-12.0) H 12/18/21 09:05 INR 1.2 (0.9-1.1) H 12/18/21 09:05 APTT 27.4 Seconds (21.0-31.0) 12/18/21 09:05 Urine Color Yellow 12/18/21 10:00 Urine Appearance Clear (Clear) 12/18/21 10:00 Urine pH 5.5 (4.5-7.5) 12/18/21 10:00 Ur Specific [place] 1.034 (1.000-1.030) H 12/18/21 10:00 Urine Protein Negative (Negative) 12/18/21 10:00 Urine Glucose (UA) 3+ (Negative) H 12/18/21 10:00 Urine Ketones 4+ (Negative) H 12/18/21 10:00 Urine Nitrite Negative (Negative) 12/18/21 10:00 Ur Leukocyte Esterase Negative (Negative) 12/18/21 10:00 Blood Type O Positive 12/18/21 09:21 Antibody Screen NEGATIVE 12/18/21 09:21 12/18/21 12/18/21 12/18/21 12:33 12:32 10:03 POC Glucose 407 H* 398 H* 375 H* 12/18/21 08:33 POC Glucose 470 H* Electrocardiogram Date: 12/18/21 Findings: + NSR @ (@ 75;) and + RBBB Chest X-Ray Date: 12/18/21 Findings: + NAD Echocardiogram Date: 09/29/20 EF: 60% LV Function: normal RWMA: + none Other Findings: + atrial enlargement (mod. dilated RA/LA) and + LVH (mod.) Valvular Disease: + MR (mild) and + pertinent finding (RV systolic pressur e-30-40 torr)
[2021-12-18] MEDS ORDERED: DC ALL PREVIOUSLY ORDERED DIABETES MEDS ONE (13:25)
[2021-12-18] MEDS ORDERED: DKA GOAL RANGE 150-250 mg/dl ONE (13:25)
[2021-12-18] MEDS ORDERED: STAT IV Infusion **Titration per Protocol STA (13:25)
[2021-12-18] MEDS ORDERED: LACTATED RINGER'S 1,000 ML IV SCH (13:30)
[2021-12-18] MEDS ORDERED: PENDING D5 1/2NS+20mEq KCL IVF SCH (13:30)
[2021-12-18] MEDS ORDERED: PENDING 1/2NSS+20mEq KCL IVF SCH (13:30)
--- NOTE | 2021-12-18 13:38 | Communication Note ---
Date of Service: December 18, 2021 Patient has a Hx/o cardiomyopathy,LV function has improved on Ech of 09/29/2020;Patient has uncontrolled DM (glucose today > 400); Patient took most recent dose of rivaroxaban evening of 12/17/2021. Patient has a Hx/o AFib.
--- NOTE | 2021-12-18 14:09 | Pharmacy Report ---
Pharmacy Glycemic Short Note 2 - Date of Service December 18, 2021 - Glycemic Short BSG Results (Last 24 hours): 12/18/21 12/18/21 12/18/21 08:33 09:05 10:03 Glucose 471 H* POC Glucose 470 H* 375 H* 12/18/21 12/18/21 12:32 12:33 Glucose POC Glucose 398 H* 407 H* OUTPATIENT ANTIDIABETIC REGIMEN: * Lantus 15 units SC BID * Novolog 03/12/13 units TIDM, plus sliding scale with correction factor of 35 mg/dL/unit * Metformin * HbA1c 8.5% on 12/06/21 ASSESSMENT: * 66 yo M with T2DM admitted with a hip fracture on 12/18 and found to be profoundly hyperglycemic. History notable both for diabetic coma last year and also history of severe lows when on an insulin drip prior, per discussion with Josie Stephens (who obtained this information from a friend of the patient). Discussed risks/benefits of insulin drip given elevated anion gap - plan to initiate insulin drip with DKA protocol which includes reflex dextrose in IV once BSG's in goal range. Plan is to continue drip with dextrose cont aining fluids until tomorrow AM, when patient can hopefully be transitioned safely off of the drip. PLAN FOR INPATIENT GLYCEMIC CONTROL: * Hold outpatient oral diabetes medications * Insulin drip per DKA protocol with goal range 150-250 mg/dL * Appropriate pending orders for potassium and dextrose entered * Basal insulin * Lantus 15 units SQ x1 given this AM. Will hold additional for now as patient is NPO * Bolus insulin * Nutritional / Prandial insulin per carb ratio per insulin drip calculator
[2021-12-18 15:17] LABS: BUN Creatinine Ratio 26.4 (10-20); Calcium 9.1 mg/dl (8.5-10.1); Est GFR (African American) 101.4 ml/min; Est GFR (Non-African American) 87.5 ml/min; Magnesium 1.3 mg/dl (1.7-2.4); Potassium 4.7 mmol/L (3.5-5.1)
[2021-12-18] MEDS ORDERED: INSULIN HUMAN REGULAR IV BOLUS 8 UNITS in SYRINGE 0 ML IV STA (15:26)
[2021-12-18] MEDS: INSULIN REGULAR 250 UNITS in SODIUM CHLORIDE 0.9% 247.5 ML IV SCH (16:02)
[2021-12-18] MEDS ORDERED: SODIUM CHLOR 0.45% + 20MEQ KCL 20 MEQ/1,000 ML BAG IV SCH (17:45)
[2021-12-18] MEDS: INSULIN ASPART PER UNIT SC SCH ×2 (17:52→21:51)
[2021-12-18] MEDS: METOPROLOL TARTRATE 25 MG TAB PO SCH (17:53)
[2021-12-18] MEDS: MAGNESIUM SULFATE / D5W 1 GM/100 ML BAG IV SCH ×2 (17:58→20:01)
[2021-12-18 19:27] LABS: BUN Creatinine Ratio 22.1 (10-20); Calcium 9.3 mg/dl (8.5-10.1); Creatinine Clr Calc Pharmacy 81.5 ml/min; Est GFR (African American) 96.3 ml/min; Est GFR (Non-African American) 83.1 ml/min; Magnesium 1.5 mg/dl (1.7-2.4); Phosphorus 2.1 mg/dl (2.5-4.9); Potassium 3.7 mmol/L (3.5-5.1)
[2021-12-18] MEDS ORDERED: METOPROLOL TARTRATE 1 MG/ML VIAL IV PRN (20:47)
[2021-12-18] MEDS ORDERED: NON-FORMULARY MEDICATION (Insulin Glargine [Lantus Solostar U-100 Insulin] 100 unit/mL (3 SQ SCH (21:00)
--- NOTE | 2021-12-18 21:03 | Communication Note ---
Date of Service: December 18, 2021 S: I was called by RN at 2030. Patient had nonsustained run of V. tach with HR to 200s, patient asymptomatic. HR back down to 80s/90s. His pressure was 97/70. Patient on DKA/HHS protocol, however half-normal saline with potassium has been held for several hours to run magnesium. Last BMP was at 1840, potassium 3.7, phosphorus 2.1, magnesium 1.5. AG 12. He was normotensive earlier this evening, however metoprolol was not given due to n.p.o. status.\ O: BP 86/59, HR 80s, patient is resting comfortably in bed without any complaints of pain. AAOx3. Regular rate and rhythm, lungs CTABT, pulses intact and equal throughout, extremities warm and well-perfused. Abdomen non-tender, NABS. Strength equal throughout, no focal weakness/numbness/tingling. A/P: - Regarding tachycardia, STAT troponin ordered, echo and additional troponin with a.m. labs ordered. 5 metoprolol IV as needed ordered for sustained tachycardia - Regarding hypotension, will bolus 1 L normal saline, and then resume half- normal saline with D5 and potassium. - Regarding electrolyte abnormalities, I have ordered 40 mEq stat dose PO potassium. Continue NS/KCl/D5 fluids after bolus. Continue mag supplementation. Next BMP due at 2230.
[2021-12-18] MEDS ORDERED: POTASSIUM CHLORIDE CRTAB 20 MEQ TABCR PO STA (21:04)
[2021-12-18] MEDS ORDERED: SODIUM CHLORIDE 0.9% 1000ML 1,000 ML IV ONE (21:49)
[2021-12-18] MEDS: D5W AND 1/2NSS + 20MEQ KCL 20 MEQ/1,000 ML BAG IV SCH (22:18)
[2021-12-18 23:16] LABS: BUN Creatinine Ratio 20.6 (10-20); Calcium 8.8 mg/dl (8.5-10.1); Creatinine Clr Calc Pharmacy 79.8 ml/min; Est GFR (African American) 93.9 ml/min; Phosphorus 1.8 mg/dl (2.5-4.9); Potassium 3.7 mmol/L (3.5-5.1)
[2021-12-19] MEDS: ATORVASTATIN 40 MG TAB PO SCH ×2 (00:08→20:39)
[2021-12-19] MEDS ORDERED: POTASSIUM PHOS 3 MMOL/1 ML INFUSION IV STA (00:12)
[2021-12-19] MEDS ORDERED: POTASSIUM PHOSPHATE 21 MMOL in SODIUM CHLORIDE 0.9% 500 ML IV ONE (00:30)
[2021-12-19] MEDS: MoRPHine SULFATE 2 MG/ML CARP IV PRN ×3 (06:05→18:09)
[2021-12-19] MEDS: D5W AND 1/2NSS + 20MEQ KCL 20 MEQ/1,000 ML BAG IV SCH (06:18)
[2021-12-19 06:46] LABS: Basophils # (auto) 0.05 K/uL (0-0.2); Basophils % (auto) 0.6 %; Eosinophils # (auto) 0.27 K/uL (0-0.50); Hematocrit (blood only) 35.4 % (40.1-51.0); Hemoglobin 12.8 g/dl (14.0-18.0); Immature Granulocytes # (auto) 0.04 K/uL (0.00-0.02); Immature Granulocytes % (auto) 0.4 %; Lymphocytes # (auto) 1.47 K/uL (1.2-3.4); Lymphocytes % (auto) 16.5 %; Mean Corpuscular Hemoglobin 30.9 pg (25.0-34.0); Mean Corpuscular Hgb Conc 36.2 g/dL (32.0-36.0); Mean Corpuscular Volume 85.5 fL (80.0-100.0); Mean Platelet Volume 9.3 fL (9.4-12.4); Monocytes # (auto) 0.59 K/uL (0.24-0.82); Monocytes % (auto) 6.6 %; Neutrophils % (auto) 72.9 %; Platelet Count 177 K/uL (130-400); RDW Coefficient of Variation 12.8 % (11.5-14.5); RDW Standard Deviation 39.7 fL (36.4-46.3); Red Blood Count 4.14 M/uL (4.63-6.08); White Blood Count 8.92 K/ul (4.8-10.8)
[2021-12-19 07:14] LABS: Troponin I High Sensitivity 9.9 pg/ml (0-20)
--- NOTE | 2021-12-19 07:19 | Orthopedic Consultation ---
Date of Consultation December 19, 2021 Assessment & Plan (1) Subcapital fracture of left hip: patient evaluated for acute injury to his left hip, xrays were reviewed which is showing a impacted, mildly displaced subcapital fracture. Discussed x-rays with Dr Howell as well as Dr Baker and recommend surgical fixation with left total hip replacement. patient is currently on anticoagulants, it appears last dose was on Sunday evening, will cont hold on this and will plan on OR Sunday by Dr Baker, patient can have diet today and NPO after MN tonight. [place] [facility] [phone] The risks and benefits have been discussed including, but not limited to, risk of infection, nerve injury, stiffness, loss of motion, failure to improve, etc. Reasonable outcomes and options of treatment were discussed. An explanation of appropriate alternatives to the procedure that may be advantageous were discussed and their risks and benefits, as well as the risks and benefits of not proceeding with treatment. I offered to answer any additional inquiries concerning the treatment involved. All the patient's questions were answered. The patient is agreeable, understanding of the treatment plan and alternatives, and wishes to proceed with the treatment plan. History of Present Illness Reason for Consultation: left hip fracture Attending Physician: Jed Talbert MD History of Present Illness Lars is a 66 year old male who presented to the ER from a personal intermediate after sustaining a fall yesterday, patient states that he fell out of bed which caused the injury. rates his current pain as 4/10 while laying in bed and denies any other injuries or pain elsewhere. He is currently on anticoagulants for history of Afib. Denies any previous injuries or trauma to this hip. He is currently denying chest pain, sob or difficulty breathing. Allergies Allergy/AdvReac Type Severity Reaction Status Date / Time No Known Allergies Allergy Verified 09/16/21 09:49 Home Medications Medication Instructions Recorded Confirmed Type quetiapine 25 mg tablet 12.5 mg PO HS PRN Psychosis 11/18/20 12/18/21 History Wheeled Walker #1 ea 03/21/21 09/16/21 Rx potassium chloride 20 mEq 20 meq PO DAILY #90 tabs 05/12/21 12/18/21 Rx tablet,extended release(part/cryst) acetaminophen 325 mg capsule 650 mg PO Q6H PRN Pain #90 caps 05/18/21 12/18/21 Rx magnesium oxide 400 mg PO DAILY #30 tabs 05/24/21 12/18/21 Rx pen needle, diabetic, safety 30 #100 ea 07/28/21 09/16/21 Rx gauge x 1/3" (Novofine Autocover) insulin aspart U-100 100 unit/mL See Rx Instructions .Route .COMPLEX 09/16/21 12/18/21 History (3 mL) subcutaneous pen (Novolog Flexpen U-100 Insulin aspart) diclofenac sodium 75 mg 75 mg PO BID PRN pain #60 tabs 09/28/21 12/18/21 Rx tablet,delayed release atorvastatin 40 mg tablet 40 mg PO QPM #90 tabs 10/03/21 12/18/21 Rx levothyroxine 125 mcg tablet 125 mcg PO DAILY #30 tabs 10/03/21 12/18/21 Rx lisinopril 40 mg tablet 40 mg PO DAILY #30 tabs 10/03/21 12/18/21 Rx metformin 500 mg tablet,extended 500 mg PO BIDM #60 tabs 10/03/21 12/18/21 Rx release 24hr metoprolol tartrate 25 mg tablet 25 mg PO BIDM #60 tabs 10/03/21 12/18/21 Rx rivaroxaban 20 mg tablet (Xarelto) 20 mg PO HS #30 tabs 10/03/21 12/18/21 Rx amlodipine 2.5 mg tablet 5 mg PO DAILY #180 tabs 10/04/21 12/18/21 Rx insulin glargine 100 unit/mL (3 15 unit (0.15 mL) subcut BID 30 10/04/21 12/18/21 Rx mL) subcutaneous pen (Lantus days #9 mL Solostar U-100 Insulin) triamterene 37.5 1 tab PO DAILY #90 tabs 10/04/21 12/18/21 Rx mg-hydrochlorothiazide 25 mg tablet polyethylene glycol 3350 17 17 g PO BID PRN constipation #850 12/16/21 12/18/21 Rx gram/dose oral powder (Miralax) grams Patient History Medical History Collapse Cough COVID-19 History of alcoholism History of prostate cancer Hyperlipidemia Hypoglycemia Hypothyroidism Insomnia Nausea Nicotine abuse Seborrheic dermatitis of scalp Sore throat Unresponsive episode Vitamin D deficiency Weakness Surgical History History of left knee surgery History of shoulder surgery Left Family History Mother Cancer Grandmother (Paternal) Stroke Grandfather (Paternal) Stroke Other Myocardial infarction Denies family history of Ovarian cancer Prostate cancer Breast cancer Colorectal cancer Social History Smoking Status: Never smoker Tobacco Type: Smokeless Tobacco (Dip or Chew) Age Started Using Tobacco: 16; Age Quit Using Tobacco: 26; Second Hand Exposure: No; Do You Dip or Chew Tobacco: Yes; Hx Alcohol Use: No Hx Substance Use: No Preferred Language: Slovak Communication Ability: Effective 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 Beliefs That Will Affect Care: None marital status: Single Current Living Situation: Personal Care Facility Current Living Situation Comment: [facility] current occupational status: retired current occupation: [employer] How many Children do You have: 0 Feels Safe at Home: Yes Childhood Exposure to Second-Hand Smoke: Yes caffeine: Yes (iced tea ) Dental Care, Regularly: No Physical Activity Frequency: Does not Exercise Seatbelt Use: always Sunscreen Use: No Assistive Devices: Walker Review of Systems Cardiovascular: no chest pain, no dyspnea and no orthopnea Gastrointestinal: no nausea and no vomiting Physical Exam Physical Exam: Vital Signs Temp 36.8 C 12/19/21 03:18 Pulse 68 12/19/21 03:18 Resp 18 12/19/21 03:18 BP 120/85 12/19/21 03:18 Pulse Ox 94 12/19/21 04:00 O2 Del Method 12/19/21 04:00 Intake & Output 12/18/21 12/19/21 12/19/21 18:59 06:59 18:59 Intake Total 1002.083 / 3836.79 1 2834.708 / 3836.79 1 Output Total 400 / 400 Balance 1002.083 / 3436.79 1 2434.708 / 3436.79 1 Weight 85.45 kg 79.4 kg Intake: IV 1002.083 / 3776.79 1 2774.708 / 3776.79 1 D5w and 1/2Nss + 20Meq KCl 20 1000 / 1000 meq In 1,000 m l @ 125 mls/hr IV .Q8H JOSELITO Rx#:[id number] Insulin Regula r 250 units In 67.708 / 67.708 Sodium Chlorid e 0.9% 247.5 ml @ 2.5 UNITS/HR 2 .5 mls/hr IV . Q24H JOSELITO Rx#:[id number] Magnesium Sulf ate / D5w 1 gm In 200 / 200 100 ml @ 50 ml s/hr IV Q2H JOSELITO Rx#:[id number] Potassium Phos phate 21 mmol In 507 / 507 Sodium Chlorid e 0.9% 500 ml @ 140 mls/hr IV ONE ONE Rx#: [id number] Sodium Chlor 0 .45% + 20Meq KCl 2.083 / 2.083 0 / 2.083 20 meq In 1,00 0 ml @ 125 mls/hr IV .Q8H JOSELITO Rx #:[id number] Sodium Chlorid e 0.9% 1000ML 1, 500 / 1500 1000 / 1500 000 ml @ 999 m ls/hr IV .Q1H1M ONE Rx#:[id number] Sodium Chlorid e 0.9% 500 ml @ 500 / 500 999 mls/hr IV .Q31M STA Rx#: [id number] Oral 60 / 60 Output: Urine 0 / 0 Urine Amount (Ca theter) 400 / 400 Coude 400 / 400 Other: Other Intake Rain rce NPO # Unmeasured Voi ds 1 Weight Measureme nt Method Built in [facility] Built in [facility] Constitutional: WD/WN, vitals as above Musculoskeletal: Hip: + deformity (left leg is shortened and externally rotated), + ecchymosis (mild ) and + limited ROM of hip (secondary to pain); no skin erythema and no surgical incision calf soft, non-tender, DP palpable, he is able to actively plantar/dorsiflex ankle. sensation intact to light touch Results & Data ([facility]) Vital Signs (Past 12 Hours) Vital Signs Temp Pulse Pulse Resp BP Pulse Ox Pulse Ox 12/19/21 04:00 94 12/18/21 22:35 75 12/19/21 03:18 36.8 C 68 18 120/85 94 12/18/21 22:50 117/71 12/18/21 22:05 101/76 10/02/22 21:45 106/70 12/18/21 20:45 107/70 12/19/21 00:00 95 12/19/21 00:18 36.8 C 72 18 120/76 96 12/18/21 20:55 95 12/18/21 19:23 36.3 C L 90 16 97/70 L 95 O2 Del Method O2 Del Method 12/19/21 04:00 Room Air 12/18/21 22:35 12/19/21 03:18 Room Air 12/18/21 22:50 12/18/21 22:05 12/18/21 21:45 12/18/21 20:45 12/19/21 00:00 Room Air 12/19/21 00:18 Room Air 12/18/21 20:55 Room Air 12/18/21 19:23 Room Air Diagnostic Findings XR hip LT 2V w pelvis HISTORY: 66 years-old Male fall acute pain of the pelvis and left hip status post trauma COMPARISON: 07/29/2021 TECHNIQUE: AP view of the pelvis with 2 views of the left hip Brachy therapy seeds of the prostate. Moderate fecal retention. There is mild to moderate osteoarthritis of the hips. No dislocation or avascular necrosis. There is an acute impacted subcapital fracture of the left femur demonstrating approximately 10 mm of impaction superior lateral displacement of 1.3 cm. Arterial calcifications. Moderate fecal retention. IMPRESSION: Acute impacted and mildly displaced subcapital fracture of the left femur. Addendum December 19, 2021 17:15 (1) Subcapital fracture of left hip Encounter type: initial encounter Fracture type: closed Qualified Code(s): S72.012A - Unspecified intracapsular fracture of left femur, initial encounter for closed fracture
[2021-12-19 07:24] LABS: BUN Creatinine Ratio 21.2 (10-20); Calcium 8.4 mg/dl (8.5-10.1); Est GFR (African American) 105.2 ml/min; Est GFR (Non-African American) 90.8 ml/min; Potassium 3.7 mmol/L (3.5-5.1)
[2021-12-19] MEDS: LEVOTHYROXINE SODIUM 125 MCG TABLET PO SCH (07:32)
[2021-12-19] MEDS ORDERED: amLODIPine BESYLATE 5 MG TAB PO SCH (09:00)
[2021-12-19] MEDS ORDERED: TRIAMTERENE/HCTZ 37.5/25MG TAB PO SCH (09:00)
[2021-12-19] MEDS ORDERED: lisinopril 40 MG TAB PO SCH (09:00)
[2021-12-19] MEDS: INSULIN ASPART PER UNIT SC SCH ×3 (09:00→20:39)
[2021-12-19] MEDS: MAGNESIUM OXIDE 400 MG TAB PO SCH (09:03)
[2021-12-19] MEDS: POTASSIUM CHLORIDE CRTAB 20 MEQ TABCR PO SCH (09:04)
[2021-12-19] MEDS: NICOTINE 21 MG/24 HR TDSY TD SCH (09:04)
[2021-12-19] MEDS ORDERED: LANTUS PER UNIT CHARGE SQ ONE (09:45)
--- NOTE | 2021-12-19 09:57 | Pharmacy Report ---
Pharmacy Glycemic Short Note 2 - Date of Service December 19, 2021 - Glycemic Short BSG Results (Last 24 hours): 12/18/21 12/18/21 12/18/21 10:03 12:32 12:33 Glucose POC Glucose 375 H* 398 H* 407 H* 12/18/21 12/18/21 12/18/21 14:28 15:58 17:10 Glucose 429 H* POC Glucose 416 H* 335 H* 12/18/21 12/18/21 12/18/21 18:06 18:40 19:09 Glucose 228 H POC Glucose 293 H 279 H 12/18/21 12/18/21 12/18/21 19:58 21:17 22:07 Glucose POC Glucose 205 H 169 H 174 H 12/18/21 12/18/21 12/19/21 22:39 23:13 01:17 Glucose 147 H POC Glucose 175 H 170 H 12/19/21 12/19/21 12/19/21 03:16 05:17 06:05 Glucose 138 H POC Glucose 119 H 127 H 12/19/21 12/19/21 07:29 08:48 Glucose POC Glucose 202 H 237 H OUTPATIENT ANTIDIABETIC REGIMEN: * Lantus 15 units SC BID * Novolog 03/12/13 units TIDM, plus sliding scale with correction factor of 35 mg/dL/unit * Metformin * HbA1c 8.5% on 12/06/21 ASSESSMENT: 12/19 * Anion gap closed. BSG's in goal range. Insulin drip running at 2.5 units/hr * Discussed w Dr. Mc - diet ordered for today, but will be NPO after midnight for anticipated procedure/TIMOTHY tomorrow. OK to transition off insulin drip and stop IVF * Prior hospitalization reviewed and will be the basis for determining current regimen. Home dose Lantus likely appropriate for inpatient, but will give total daily dose now instead of splitting BID to help transition off of insulin drip. Will refrain from evening dose due to NPO in AM. Will slightly dose adjust AM dose down as well due to NPO overnight tonight * Novolog based on prior admission, with adjustment to prevent hypoglycemia at dinner especially Background * 66 yo M with T2DM admitted with a hip fracture on 12/18 and found to be profoundly hyperglycemic. History notable both for diabetic coma last year and also history of severe lows when on an insulin drip prior, per discussion with Josie Stephens (who obtained this information from a friend of the patient). Discussed risks/benefits of insulin drip given elevated anion gap - plan to initiate insulin drip with DKA protocol which includes reflex dextrose in IV once BSG's in goal range. Plan is to continue drip with dextrose containing fluids until tomorrow AM, when patient can hopefully be transitioned safely off of the drip. PLAN FOR INPATIENT GLYCEMIC CONTROL: * Hold outpatient oral diabetes medication * Stop D5 1/2NS w potassium chloride 20mEq/L @ 125/hr, per Dr. Mc * Insulin drip w goal 140-180 mg/dL. Stop at 1630 today * Basal insulin * Lantus 24 units SQ x1 this AM. Will hold additional for now as patient is NPO p 0000 * Bolus insulin * Goal range 110-140 mg/dL * Correction factor: 25 mg/dL/unit at breakfast, 30 mg/dL/unit at lunch, dinner, and bedtime * Carb ratio: 8 g CHO/unit at breakfast, 9 g CHO/unit at lunch, dinner, and bedtime
[2021-12-19] MEDS ORDERED: [UNRECOGNIZED DRUG - REMARK] ONE (10:00)
[2021-12-19] MEDS ORDERED: INSULIN ASPART PER UNIT SC ONE (11:30)
--- NOTE | 2021-12-19 12:42 | XCELERA ---
[id number] \\[id number]
--- NOTE | 2021-12-19 13:46 | Cardiology Consultation ---
Date of Consultation December 19, 2021 Assessment & Plan (1) Paroxysmal SVT (supraventricular tachycardia): (2) Paroxysmal A-fib: Plan 1. Supraventricular tachycardia: It seems the patient's initial rhythm was thought to be ventricular tachycardia, but a review of his telemetry suggest this was an SVT. He has a slightly prolonged QRS duration at baseline due to right bundle branch block. The QRS morphology did not change during his period of tachycardia. 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 He has not report symptoms of palpitations at other times. He is not known to have episodes of lightheadedness or dizziness. I do not believe this is a clinical concern. Recurrent episodes of SVT can be treated according to symptoms. If he has more frequent, prolonged and symptomatic episodes of SVT we could consider catheter based therapy. No precautions necessary for his scheduled surgery. 2. Atrial fibrillation: This was believed to be related to prior hospitalizations. He certainly a risk of recurrent atrial fibrillation. We can manage this arrhythmia if it occurs. He can continue his beta-binu in the perioperative period. Rivaroxaban currently being held to facilitate surgery. This should be re-initiated once his risk of bleeding is low. History of Present Illness Reason for Consultation: Ventricular tachycardia Requesting Physician: Kat Attending Physician: Stevo Mc History of Present Illness The patient is a 66-year-old gentleman with a remote history of paroxysmal atrial fibrillation who suffered a hip fracture. The patient states that he was having a vivid dream and fell out of bed breaking his hip. He has remote history of atrial fibrillation surrounding periods of increased angina urgent tone. At the time of his admission he was placed on telemetry monitoring and did have a 1 minutes episode of a narrow complex tachycardia. The patient has been unaware of any episodes of dizziness or lightheadedness. He denies palpitations. He generally ambulates with a walker primarily for stability. He has not fallen recently. He denies any limiting dyspnea or shortness of breath at rest. He denies any symptoms of chest pain either with exertion or at rest. Allergies Allergy/AdvReac Type Severity Reaction Status Date / Time No Known Allergies Allergy Verified 09/16/21 09:49 Home Medications Medication Instructions Recorded Confirmed Type quetiapine 25 mg tablet 12.5 mg PO HS PRN Psychosis 11/18/20 12/18/21 History Wheeled Walker #1 ea 03/21/21 09/16/21 Rx potassium chloride 20 mEq 20 meq PO DAILY #90 tabs 05/12/21 12/18/21 Rx tablet,extended release(part/cryst) acetaminophen 325 mg capsule 650 mg PO Q6H PRN Pain #90 caps 05/18/21 12/18/21 Rx magnesium oxide 400 mg PO DAILY #30 tabs 05/24/21 12/18/21 Rx pen needle, diabetic, safety 30 #100 ea 07/28/21 09/16/21 Rx gauge x 1/3" (Novofine Autocover) insulin aspart U-100 100 unit/mL See Rx Instructions .Route .COMPLEX 09/16/21 12/18/21 History (3 mL) subcutaneous pen (Novolog Flexpen U-100 Insulin aspart) diclofenac sodium 75 mg 75 mg PO BID PRN pain #60 tabs 09/28/21 12/18/21 Rx tablet,delayed release atorvastatin 40 mg tablet 40 mg PO QPM #90 tabs 10/03/21 12/18/21 Rx levothyroxine 125 mcg tablet 125 mcg PO DAILY #30 tabs 10/03/21 12/18/21 Rx lisinopril 40 mg tablet 40 mg PO DAILY #30 tabs 10/03/21 12/18/21 Rx metformin 500 mg tablet,extended 500 mg PO BIDM #60 tabs 10/03/21 12/18/21 Rx release 24hr metoprolol tartrate 25 mg tablet 25 mg PO BIDM #60 tabs 10/03/21 12/18/21 Rx rivaroxaban 20 mg tablet (Xarelto) 20 mg PO HS #30 tabs 10/03/21 12/18/21 Rx amlodipine 2.5 mg tablet 5 mg PO DAILY #180 tabs 10/04/21 12/18/21 Rx insulin glargine 100 unit/mL (3 15 unit (0.15 mL) subcut BID 30 10/04/21 12/18/21 Rx mL) subcutaneous pen (Lantus days #9 mL Solostar U-100 Insulin) triamterene 37.5 1 tab PO DAILY #90 tabs 10/04/21 12/18/21 Rx mg-hydrochlorothiazide 25 mg tablet polyethylene glycol 3350 17 17 g PO BID PRN constipation #850 12/16/21 12/18/21 Rx gram/dose oral powder (Miralax) grams Patient History Medical History Collapse Cough COVID-19 History of alcoholism History of prostate cancer Hyperlipidemia Hypoglycemia Hypothyroidism Insomnia Nausea Nicotine abuse Seborrheic dermatitis of scalp Sore throat Unresponsive episode Vitamin D deficiency Weakness Surgical History History of left knee surgery History of shoulder surgery Left Family History Mother Cancer Grandmother (Paternal) Stroke Grandfather (Paternal) Stroke Other Myocardial infarction Denies family history of Ovarian cancer Prostate cancer Breast cancer Colorectal cancer Social History Smoking Status: Never smoker Tobacco Type: Smokeless Tobacco (Dip or Chew) Age Started Using Tobacco: 16; Age Quit Using Tobacco: 26; Second Hand Exposure: No; Do You Dip or Chew Tobacco: Yes; Hx Alcohol Use: No Hx Substance Use: No Preferred Language: British Communication Ability: Effective Collection Systems Worker Required: No Beliefs That Will Affect Care: None marital status: Single Current Living Situation: Personal Care Facility Current Living Situation Comment: [facility] current occupational status: retired current occupation: [employer] How many Children do You have: 0 Feels Safe at Home: Yes Childhood Exposure to Second-Hand Smoke: Yes caffeine: Yes (iced tea ) Dental Care, Regularly: No Physical Activity Frequency: Does not Exercise Seatbelt Use: always Sunscreen Use: No Assistive Devices: Walker Review of Systems Review of Systems: Per HPI. No recent fevers or chills. Physical Exam Physical Exam: The patient is alert and oriented. Mood and affect appeared normal. He answered all questions appropriately. HEENT: Pupils are equal and reactive to light and accommodation. Extraocular movements are intact. The sclerae are anicteric. Neuro: Cranial nerves intact Lungs: Clear to auscultation bilaterally. He has good air movement without use of accessory muscles. No rales wheezes or rhonchi. Cardiac: Heart demonstrates a regular rate and rhythm. Normal S1 and S2. No murmurs on examination. Pulses: The patient has palpable radial pulses bilaterally that are equal in intensity Extremities: There was no evidence of hypoperfusion. There is no cyanosis or clubbing. Skin: I did not appreciate any rashes on examination today. Results & Data ([facility]) Vital Signs (Past 12 Hours) Vital Signs Temp Pulse Pulse Resp BP Pulse Ox Pulse Ox 12/19/21 12:00 37.0 C 77 16 120/74 97 12/19/21 09:47 65 12/19/21 08:00 36.8 C 86 18 133/91 97 12/19/21 04:00 94 12/19/21 03:18 36.8 C 68 18 120/85 94 O2 Del Method O2 Del Method 12/19/21 12:00 12/19/21 09:47 12/19/21 08:00 12/19/21 04:00 Room Air 12/19/21 03:18 Room Air Laboratory Results Abnormal Lab Results 12/18/21 12/18/21 12/18/21 09:21 14:28 14:28 WBC RBC Hgb Hct MCV MCH MCHC RDW Std Deviation RDW Coeff of Robyn Plt Count MPV Immature Gran % (Auto) Neut % (Auto) Lymph % (Auto) [place] % (Auto) Eos % (Auto) Baso % (Auto) Neut # (Auto) Lymph # (Auto) [place] # (Auto) Eos # (Auto) Baso # (Auto) Immature Gran # (Auto) VBG pH 7.29 L Sodium 134 L Potassium 4.7 Chloride 98 Carbon Dioxide 17 L Anion Gap 19 H BUN 24 H Creatinine 0.91 Est Cr Clr Drug Dosing 85.0 Est GFR ( Amer) 101.4 Est GFR (Non-Af Amer) 87.5 BUN/Creatinine Ratio 26.4 H Glucose 429 H* POC Glucose Calcium 9.1 Phosphorus 4.0 Magnesium 1.3 L Troponin I High Sens Blood Type O Positive Antibody Screen NEGATIVE 12/18/21 12/18/21 12/18/21 15:58 17:10 18:06 WBC RBC Hgb Hct MCV MCH MCHC RDW Std Deviation RDW Coeff of Robyn Plt Count MPV Immature Gran % (Auto) Neut % (Auto) Lymph % (Auto) [place] % (Auto) Eos % (Auto) Baso % (Auto) Neut # (Auto) Lymph # (Auto) [place] # (Auto) Eos # (Auto) Baso # (Auto) Immature Gran # (Auto) VBG pH Sodium Potassium Chloride Carbon Dioxide Anion Gap BUN Creatinine Est Cr Clr Drug Dosing Est GFR ( Amer) Est GFR (Non-Af Amer) BUN/Creatinine Ratio Glucose POC Glucose 416 H* 335 H* 293 H Calcium Phosphorus Magnesium Troponin I High Sens Blood Type Antibody Screen 12/18/21 12/18/21 12/18/21 18:40 18:40 19:09 WBC RBC Hgb Hct MCV MCH MCHC RDW Std Deviation RDW Coeff of Robyn Plt Count MPV Immature Gran % (Auto) Neut % (Auto) Lymph % (Auto) [place] % (Auto) Eos % (Auto) Baso % (Auto) Neut # (Auto) Lymph # (Auto) [place] # (Auto) Eos # (Auto) Baso # (Auto) Immature Gran # (Auto) VBG pH 7.38 Sodium 137 Potassium 3.7 D Chloride 104 Carbon Dioxide 21 Anion Gap 12 H BUN 21 Creatinine 0.95 Est Cr Clr Drug Dosing 81.5 Est GFR ( Amer) 96.3 Est GFR (Non-Af Amer) 83.1 BUN/Creatinine Ratio 22.1 H Glucose 228 H POC Glucose 279 H Calcium 9.3 Phosphorus 2.1 L D Magnesium 1.5 L Troponin I High Sens Blood Type Antibody Screen 12/18/21 12/18/21 12/18/21 19:58 20:24 21:17 WBC RBC Hgb Hct MCV MCH MCHC RDW Std Deviation RDW Coeff of Robyn Plt Count MPV Immature Gran % (Auto) Neut % (Auto) Lymph % (Auto) [place] % (Auto) Eos % (Auto) Baso % (Auto) Neut # (Auto) Lymph # (Auto) [place] # (Auto) Eos # (Auto) Baso # (Auto) Immature Gran # (Auto) VBG pH Sodium Potassium Chloride Carbon Dioxide Anion Gap BUN Creatinine Est Cr Clr Drug Dosing Est GFR ( Amer) Est GFR (Non-Af Amer) BUN/Creatinine Ratio Glucose POC Glucose 205 H 169 H Calcium Phosphorus Magnesium Troponin I High Sens 10.3 D Blood Type Antibody Screen 12/18/21 12/18/21 12/18/21 22:07 22:39 22:39 WBC RBC Hgb Hct MCV MCH MCHC RDW Std Deviation RDW Coeff of Robyn Plt Count MPV Immature Gran % (Auto) Neut % (Auto) Lymph % (Auto) [place] % (Auto) Eos % (Auto) Baso % (Auto) Neut # (Auto) Lymph # (Auto) [place] # (Auto) Eos # (Auto) Baso # (Auto) Immature Gran # (Auto) VBG pH 7.39 Sodium 138 Potassium 3.7 Chloride 106 Carbon Dioxide 26 Anion Gap 6 BUN 20 Creatinine 0.97 Est Cr Clr Drug Dosing 79.8 Est GFR ( Amer) 93.9 Est GFR (Non-Af Amer) 81.0 BUN/Creatinine Ratio 20.6 H Glucose 147 H POC Glucose 174 H Calcium 8.8 Phosphorus 1.8 L Magnesium 2.0 Troponin I High Sens Blood Type Antibody Screen 12/18/21 12/19/21 12/19/21 23:13 01:17 03:16 WBC RBC Hgb Hct MCV MCH MCHC RDW Std Deviation RDW Coeff of Robyn Plt Count MPV Immature Gran % (Auto) Neut % (Auto) Lymph % (Auto) [place] % (Auto) Eos % (Auto) Baso % (Auto) Neut # (Auto) Lymph # (Auto) [place] # (Auto) Eos # (Auto) Baso # (Auto) Immature Gran # (Auto) VBG pH Sodium Potassium Chloride Carbon Dioxide Anion Gap BUN Creatinine Est Cr Clr Drug Dosing Est GFR ( Amer) Est GFR (Non-Af Amer) BUN/Creatinine Ratio Glucose POC Glucose 175 H 170 H 119 H Calcium Phosphorus Magnesium Troponin I High Sens Blood Type Antibody Screen 12/19/21 12/19/21 12/19/21 05:17 06:05 06:05 WBC 8.92 RBC 4.14 L Hgb 12.8 L Hct 35.4 L MCV 85.5 MCH 30.9 MCHC 36.2 H RDW Std Deviation 39.7 RDW Coeff of Robyn 12.8 Plt Count 177 MPV 9.3 L Immature Gran % (Auto) 0.4 Neut % (Auto) 72.9 Lymph % (Auto) 16.5 [place] % (Auto) 6.6 Eos % (Auto) 3.0 Baso % (Auto) 0.6 Neut # (Auto) 6.50 Lymph # (Auto) 1.47 [place] # (Auto) 0.59 Eos # (Auto) 0.27 Baso # (Auto) 0.05 Immature Gran # (Auto) 0.04 H VBG pH Sodium 138 Potassium 3.7 Chloride 107 Carbon Dioxide 24 Anion Gap 7 BUN 18 Creatinine 0.85 Est Cr Clr Drug Dosing 91.0 Est GFR ( Amer) 105.2 Est GFR (Non-Af Amer) 90.8 BUN/Creatinine Ratio 21.2 H Glucose 138 H POC Glucose 127 H Calcium 8.4 L Phosphorus Magnesium Troponin I High Sens 9.9 Blood Type Antibody Screen 12/19/21 12/19/21 12/19/21 07:29 08:48 10:43 WBC RBC Hgb Hct MCV MCH MCHC RDW Std Deviation RDW Coeff of Robyn Plt Count MPV Immature Gran % (Auto) Neut % (Auto) Lymph % (Auto) [place] % (Auto) Eos % (Auto) Baso % (Auto) Neut # (Auto) Lymph # (Auto) [place] # (Auto) Eos # (Auto) Baso # (Auto) Immature Gran # (Auto) VBG pH Sodium Potassium Chloride Carbon Dioxide Anion Gap BUN Creatinine Est Cr Clr Drug Dosing Est GFR ( Amer) Est GFR (Non-Af Amer) BUN/Creatinine Ratio Glucose POC Glucose 202 H 237 H 248 H Calcium Phosphorus Magnesium Troponin I High Sens Blood Type Antibody Screen 12/19/21 12/19/21 12/19/21 11:19 12:35 13:33 WBC RBC Hgb Hct MCV MCH MCHC RDW Std Deviation RDW Coeff of Robyn Plt Count MPV Immature Gran % (Auto) Neut % (Auto) Lymph % (Auto) [place] % (Auto) Eos % (Auto) Baso % (Auto) Neut # (Auto) Lymph # (Auto) [place] # (Auto) Eos # (Auto) Baso # (Auto) Immature Gran # (Auto) VBG pH Sodium Potassium Chloride Carbon Dioxide Anion Gap BUN Creatinine Est Cr Clr Drug Dosing Est GFR ( Amer) Est GFR (Non-Af Amer) BUN/Creatinine Ratio Glucose POC Glucose 131 H 224 H 192 H Calcium Phosphorus Magnesium Troponin I High Sens Blood Type Antibody Screen Diagnostic Findings Echocardiogram obtained today revealed normal LV systolic function with ejection fraction of 60-65%. Stage I diastolic dysfunction. Mild aortic root dilation ECG Additional Comments: EKG obtained the time admission revealed normal sinus rhythm, borderline 1st degree AV block and right bundle branch block. PG Care Time/CCT Total # of Minutes Spent Total Time Spent with Patient: Total time spent is greater than 50% in coordination of care (as documented) at patient's floor/unit and/or counseling patient: Coding Level of Care Code 39786 Initial Inpt Care Lvl 3 Diagnoses Paroxysmal SVT (supraventricular tachycardia) I47.1 Paroxysmal A-fib I48.0
[2021-12-19] MEDS ORDERED: INSULIN DRIP STOP ORDER ONE (16:30)
[2021-12-19] MEDS: INSULIN REGULAR 250 UNITS in SODIUM CHLORIDE 0.9% 247.5 ML IV SCH (17:20)
--- NOTE | 2021-12-19 18:55 | Anesthesiology Consultation ---
Date of Service December 19, 2021 Assessment & Plan Chart Review Chart Review: Acceptable Risk for Surgery and Patient NOT seen in Pre Admission Testing History Surgery Operation Date: 12/20/21 07:00 Proposed Procedures p Left Total Hip Arthroplasty - Jeremy Baker DO Height/Weight Height: 5 ft 11 in Weight: 84.3 kg Allergies Allergy/AdvReac Type Severity Reaction Status Date / Time No Known Allergies Allergy Verified 09/16/21 09:49 Medications Home Medications Medication Instructions Recorded Confirmed Last Taken quetiapine 25 mg tablet 12.5 mg PO HS PRN Psychosis 11/18/20 12/18/21 Unknown Wheeled Walker #1 ea 03/21/21 09/16/21 Unknown potassium chloride 20 mEq 20 meq PO DAILY #90 tabs 05/12/21 12/18/21 12/18/21 tablet,extended release(part/cryst) acetaminophen 325 mg capsule 650 mg PO Q6H PRN Pain #90 caps 05/18/21 12/18/21 Unknown magnesium oxide 400 mg PO DAILY #30 tabs 05/24/21 12/18/21 12/18/21 pen needle, diabetic, safety 30 #100 ea 07/28/21 09/16/21 Unknown gauge x 1/3" (Novofine Autocover) insulin aspart U-100 100 unit/mL See Rx Instructions .Route .COMPLEX 09/16/21 12/18/21 12/18/21 (3 mL) subcutaneous pen (Novolog 26 units this Flexpen U-100 Insulin aspart) AM diclofenac sodium 75 mg 75 mg PO BID PRN pain #60 tabs 09/28/21 12/18/21 Unknown tablet,delayed release atorvastatin 40 mg tablet 40 mg PO QPM #90 tabs 10/03/21 12/18/21 12/17/21 levothyroxine 125 mcg tablet 125 mcg PO DAILY #30 tabs 10/03/21 12/18/21 12/18/21 lisinopril 40 mg tablet 40 mg PO DAILY #30 tabs 10/03/21 12/18/21 12/18/21 metformin 500 mg tablet,extended 500 mg PO BIDM #60 tabs 10/03/21 12/18/21 12/18/21 release 24hr metoprolol tartrate 25 mg tablet 25 mg PO BIDM #60 tabs 10/03/21 12/18/21 10/05/10 rivaroxaban 20 mg tablet (Xarelto) 20 mg PO HS #30 tabs 10/03/21 12/18/21 12/17/21 21:00 amlodipine 2.5 mg tablet 5 mg PO DAILY #180 tabs 10/04/21 12/18/21 12/18/21 insulin glargine 100 unit/mL (3 15 unit (0.15 mL) subcut BID 30 10/04/21 12/18/21 12/18/21 mL) subcutaneous pen (Lantus days #9 mL Solostar U-100 Insulin) triamterene 37.5 1 tab PO DAILY #90 tabs 10/04/21 12/18/21 12/18/21 mg-hydrochlorothiazide 25 mg tablet polyethylene glycol 3350 17 17 g PO BID PRN constipation #850 12/16/21 12/18/21 Unknown gram/dose oral powder (Miralax) grams Active Medications Generic Name Dose Route Start Last Admin Trade Name Freq PRN Reason Stop Dose Admin Atorvastatin Calcium 40 mg 12/18/21 21:00 12/19/21 00:08 Atorvastatin 40 Mg Tab PO 01/17/22 20:59 40 mg QPM JOSELITO Administration Insulin Aspart 0 units 12/19/21 16:30 12/19/21 17:18 Insulin Aspart Per Unit SC 01/18/22 16:29 5 units TID@1130,1630,2100 JOSELITO Administration Protocol Levothyroxine Sodium 125 mcg 12/19/21 06:30 12/19/21 07:32 Levothyroxine Sodium 125 Mcg Tablet PO 01/18/22 06:29 125 mcg DAILYBB JOSELITO Administration Magnesium Oxide 400 mg 12/19/21 09:00 12/19/21 09:03 Magnesium Oxide 400 Mg Tab PO 01/18/22 08:59 400 mg DAILY JOSELITO Administration Metoprolol Tartrate 25 mg 12/18/21 17:00 12/18/21 17:53 Metoprolol Tartrate 25 Mg Tab PO 01/17/22 16:59 Not Given BIDM [facility] Miscellaneous 1 each 12/19/21 08:59 12/19/21 09:08 Remove Nicoderm Patch N/A 01/18/22 08:58 1 each DAILY@0859 [facility] Administration Morphine Sulfate 2 mg 12/18/21 12:55 12/19/21 18:09 Morphine Sulfate 2 Mg/Ml Carp IV 01/01/22 12:54 2 mg Q4H PRN Administration Pain (1,2,3,4,5) & Pre PT Nicotine 21 mg 12/19/21 09:00 12/19/21 09:04 Nicotine 21 Mg/24 Hr Tdsy TD 01/18/22 08:59 21 mg QAM JOSELITO Administration Potassium Chloride 20 meq 12/19/21 09:00 12/19/21 09:04 Potassium Chloride Crtab 20 Meq Tabcr PO 01/18/22 08:59 20 meq DAILY JOESLITO Administration NPO Date Last Intake of Fluids: 12/19/21 Time Last Intake of Fluids: 06:00 Last Intake of Fluids Comment: sip of water with levothyroxine Date Last Intake of Solids: 12/18/21 Past Medical History Medical History Collapse Cough COVID-19 History of alcoholism History of prostate cancer Hyperlipidemia Hypoglycemia Hypothyroidism Insomnia Nausea Nicotine abuse Seborrheic dermatitis of scalp Sore throat Unresponsive episode Vitamin D deficiency Weakness Past Family History Family History Mother Cancer Grandmother (Paternal) Stroke Grandfather (Paternal) Stroke Other Myocardial infarction Denies family history of Ovarian cancer Prostate cancer Breast cancer Colorectal cancer Past Surgical History Surgical History History of left knee surgery History of shoulder surgery Left Social History Smoking Status: Never smoker tobacco type: smokeless tobacco Do You Dip or Chew Tobacco: Yes Hx Alcohol Use: No alcohol intake frequency: other Hx Substance Use: No substance use type: does not use Physical Exam Vital Signs Last Vital Signs Temp 36.8 C 12/19/21 16:00 Pulse 97 H 12/19/21 16:00 Resp 20 12/19/21 16:00 BP 119/69 12/19/21 16:00 Pulse Ox 94 12/19/21 16:00 O2 Del Method 12/19/21 16:00 Testing Laboratory Results 12/19/21 06:05 12/19/21 06:05 PT 12.7 Seconds (9.0-12.0) H 12/18/21 09:05 INR 1.2 (0.9-1.1) H 12/18/21 09:05 APTT 27.4 Seconds (21.0-31.0) 12/18/21 09:05 Urine Color Yellow 12/18/21 10:00 Urine Appearance Clear (Clear) 12/18/21 10:00 Urine pH 5.5 (4.5-7.5) 12/18/21 10:00 Ur Specific Roff 1.034 (1.000-1.030) H 12/18/21 10:00 Urine Protein Negative (Negative) 12/18/21 10:00 Urine Glucose (UA) 3+ (Negative) H 12/18/21 10:00 Urine Ketones 4+ (Negative) H 12/18/21 10:00 Urine Nitrite Negative (Negative) 12/18/21 10:00 Ur Leukocyte Esterase Negative (Negative) 12/18/21 10:00 Blood Type O Positive 12/18/21 09:21 Antibody Screen NEGATIVE 12/18/21 09:21 12/19/21 12/19/21 12/19/21 16:34 15:40 14:30 POC Glucose 153 H 166 H 154 H 12/19/21 12/19/21 12/19/21 13:33 12:35 11:19 POC Glucose 192 H 224 H 131 H 12/19/21 12/19/21 12/19/21 10:43 08:48 07:29 POC Glucose 248 H 237 H 202 H Electrocardiogram Date: 12/18/21 Findings: + NSR @ (@ 75;) and + RBBB Chest X-Ray Date: 12/18/21 Findings: + NAD Echocardiogram Date: 12/19/21 EF: 60-65 LV Function: dysfunctional (grade 1 diastolic)
--- NOTE | 2021-12-19 19:20 | Hospitalist Progress Note ---
Date of Service December 19, 2021 Assessment & Plan (1) Subcapital fracture of left hip: Plan: to OR tomorrow with UOC for ORIF. cont bedrest, means, glycemic control, pain control. NPO after MN tonight. cardiology has seen - he is optimized for surgery. recent 25-OH vit D level on 12/06/21 was 32. last dose of Xarelto was 12/17/21. resume post-op once ok with orthopedics. (2) Paroxysmal SVT (supraventricular tachycardia): Plan: episode of SVT last evening following admission. this was NOT VT; he has RBBB at baseline hence the wide complex morphology. appreciate Dr Nguyen's consultation. echo today with preserved EF. cont metoprolol tartrate 25mg BID. cont telemetry monitoring. (3) Paroxysmal A-fib: Plan: First diagnosed in 2020. Typically on Xarelto 20 mg at bedtime (on hold for #1). Cont metoprolol. No a.fib seen on tele since admission. Echo wnl. Appreciate cardiology consult from Dr Nguyen. (4) Hypertension: Plan: amlodipine, lisinopril, HCTZ all on hold and BPs are stable. cont metoprolol BID. (5) Hyperlipidemia: Plan: Continue statin. (6) Hypothyroidism: Plan: Continue Levothyroxine. TSH 08/2021 wnl. (7) Diabetes mellitus type 2, uncontrolled: Plan: appreciate pharmacy glycemic consult & recs/management. remains on insulin infusion. BSGs significantly improved. a1c 8.5% defer management to pharmacy. plan today is to transition over to SC insulin as tolerated. patient follows with Megan Caponeor - [employer] operator - at endo clinic. (8) Hypomagnesemia: Plan: replace IV repeat mag level am (9) Hypophosphatemia: Plan: repeat level am (10) Mild cognitive impairment: Plan: noted try to avoid sedatives; would be at risk of hospital delirium, etc thus far he remains stable in this standpoint (11) DVT prophylaxis: Plan: SCDs for now resume Xarelto post-op once ok with ortho Plan updated Ms Quinteros - pt's contact listed in chart, questions answered care d/w Dr Nguyen, cardiology care d/w pharmacy for glycemic control Admission and Anticipated Discharge Date Admission Date: December 18, 2021 Subjective patient resting comfortably in bed c/o L hip pain but otherwise he feels ok eating fine no dyspnea no chest pain remains on insulin drip per pharmacy guidance - BSGs <200 today had episode of SVT yesterday - no symptoms from such, lasted about 1 minute, then resolved no further dysrhythmia seen on tele since that SVT run he is aware of L hip ORIF tomorrow Review of Systems Review of Systems: gen - feels ok, eating well cv - no cp, no orthopnea pulm - no dyspnea or cough GI - no abd pain, nausea, emesis Physical Exam Physical Exam: gen - NAD, pleasant mouth - MMM neck - no JVD heart - RRR, s1 s2, no murmur lungs - CTA b/l, no rales abd - soft NT ND BS+ musculo - left leg is shortened, flexed, and externally rotated; mild edema left proximal thigh ext - no ankle edema, pulses 2+ b/l psych - oriented x 3 Results & Data Results & Data ([facility]) Vital Signs (Past 12 Hours) Vital Signs Temp Pulse Pulse Resp BP Pulse Ox O2 Del Method 12/19/21 19:00 36.7 C 97 H 18 129/93 93 Room Air 12/19/21 16:00 12/19/21 16:00 36.8 C 97 H 20 119/69 94 12/19/21 15:29 102 H 12/19/21 12:00 37.0 C 77 16 120/74 97 12/19/21 09:47 65 12/19/21 08:00 36.8 C 86 18 133/91 97 O2 Del Method 12/19/21 19:00 12/19/21 16:00 Room Air 12/19/21 16:00 12/19/21 15:29 12/19/21 12:00 12/19/21 09:47 12/19/21 08:00 Laboratory Results Laboratory Results - last 24 hr 12/18/21 12/18/21 12/18/21 09:21 18:40 19:58 WBC RBC Hgb Hct MCV MCH MCHC RDW Std Deviation RDW Coeff of Robyn Plt Count MPV Immature Gran % (Auto) Neut % (Auto) Lymph % (Auto) [place] % (Auto) Eos % (Auto) Baso % (Auto) Neut # (Auto) Lymph # (Auto) [place] # (Auto) Eos # (Auto) Baso # (Auto) Immature Gran # (Auto) VBG pH Sodium 137 Potassium 3.7 D Chloride 104 Carbon Dioxide 21 Anion Gap 12 H BUN 21 Creatinine 0.95 Est Cr Clr Drug Dosing 81.5 Est GFR ( Amer) 96.3 Est GFR (Non-Af Amer) 83.1 BUN/Creatinine Ratio 22.1 H Glucose 228 H POC Glucose 205 H Calcium 9.3 Phosphorus 2.1 L D Magnesium 1.5 L Troponin I High Sens Blood Type O Positive Antibody Screen NEGATIVE 12/18/21 12/18/21 12/18/21 20:24 21:17 22:07 WBC RBC Hgb Hct MCV MCH MCHC RDW Std Deviation RDW Coeff of Robyn Plt Count MPV Immature Gran % (Auto) Neut % (Auto) Lymph % (Auto) [place] % (Auto) Eos % (Auto) Baso % (Auto) Neut # (Auto) Lymph # (Auto) [place] # (Auto) Eos # (Auto) Baso # (Auto) Immature Gran # (Auto) VBG pH Sodium Potassium Chloride Carbon Dioxide Anion Gap BUN Creatinine Est Cr Clr Drug Dosing Est GFR ( Amer) Est GFR (Non-Af Amer) BUN/Creatinine Ratio Glucose POC Glucose 169 H 174 H Calcium Phosphorus Magnesium Troponin I High Sens 10.3 D Blood Type Antibody Screen 12/18/21 12/18/21 12/18/21 22:39 22:39 23:13 WBC RBC Hgb Hct MCV MCH MCHC RDW Std Deviation RDW Coeff of Robyn Plt Count MPV Immature Gran % (Auto) Neut % (Auto) Lymph % (Auto) [place] % (Auto) Eos % (Auto) Baso % (Auto) Neut # (Auto) Lymph # (Auto) [place] # (Auto) Eos # (Auto) Baso # (Auto) Immature Gran # (Auto) VBG pH 7.39 Sodium 138 Potassium 3.7 Chloride 106 Carbon Dioxide 26 Anion Gap 6 BUN 20 Creatinine 0.97 Est Cr Clr Drug Dosing 79.8 Est GFR ( Amer) 93.9 Est GFR (Non-Af Amer) 81.0 BUN/Creatinine Ratio 20.6 H Glucose 147 H POC Glucose 175 H Calcium 8.8 Phosphorus 1.8 L Magnesium 2.0 Troponin I High Sens Blood Type Antibody Screen 12/19/21 12/19/2112/19/22 01:17 03:16 05:17 WBC RBC Hgb Hct MCV MCH MCHC RDW Std Deviation RDW Coeff of Robyn Plt Count MPV Immature Gran % (Auto) Neut % (Auto) Lymph % (Auto) [place] % (Auto) Eos % (Auto) Baso % (Auto) Neut # (Auto) Lymph # (Auto) [place] # (Auto) Eos # (Auto) Baso # (Auto) Immature Gran # (Auto) VBG pH Sodium Potassium Chloride Carbon Dioxide Anion Gap BUN Creatinine Est Cr Clr Drug Dosing Est GFR ( Amer) Est GFR (Non-Af Amer) BUN/Creatinine Ratio Glucose POC Glucose 170 H 119 H 127 H Calcium Phosphorus Magnesium Troponin I High Sens Blood Type Antibody Screen 12/19/21 12/19/21 12/19/21 06:05 06:05 07:29 WBC 8.92 RBC 4.14 L Hgb 12.8 L Hct 35.4 L MCV 85.5 MCH 30.9 MCHC 36.2 H RDW Std Deviation 39.7 RDW Coeff of Robyn 12.8 Plt Count 177 MPV 9.3 L Immature Gran % (Auto) 0.4 Neut % (Auto) 72.9 Lymph % (Auto) 16.5 [place] % (Auto) 6.6 Eos % (Auto) 3.0 Baso % (Auto) 0.6 Neut # (Auto) 6.50 Lymph # (Auto) 1.47 [place] # (Auto) 0.59 Eos # (Auto) 0.27 Baso # (Auto) 0.05 Immature Gran # (Auto) 0.04 H VBG pH Sodium 138 Potassium 3.7 Chloride 107 Carbon Dioxide 24 Anion Gap 7 BUN 18 Creatinine 0.85 Est Cr Clr Drug Dosing 91.0 Est GFR ( Amer) 105.2 Est GFR (Non-Af Amer) 90.8 BUN/Creatinine Ratio 21.2 H Glucose 138 H POC Glucose 202 H Calcium 8.4 L Phosphorus Magnesium Troponin I High Sens 9.9 Blood Type Antibody Screen 12/19/21 12/19/21 12/19/21 08:48 10:43 11:19 WBC RBC Hgb Hct MCV MCH MCHC RDW Std Deviation RDW Coeff of Robyn Plt Count MPV Immature Gran % (Auto) Neut % (Auto) Lymph % (Auto) [place] % (Auto) Eos % (Auto) Baso % (Auto) Neut # (Auto) Lymph # (Auto) [place] # (Auto) Eos # (Auto) Baso # (Auto) Immature Gran # (Auto) VBG pH Sodium Potassium Chloride Carbon Dioxide Anion Gap BUN Creatinine Est Cr Clr Drug Dosing Est GFR ( Amer) Est GFR (Non-Af Amer) BUN/Creatinine Ratio Glucose POC Glucose 237 H 248 H 131 H Calcium Phosphorus Magnesium Troponin I High Sens Blood Type Antibody Screen 12/19/21 12/19/21 12/19/21 12:35 13:33 14:30 WBC RBC Hgb Hct MCV MCH MCHC RDW Std Deviation RDW Coeff of Robyn Plt Count MPV Immature Gran % (Auto) Neut % (Auto) Lymph % (Auto) [place] % (Auto) Eos % (Auto) Baso % (Auto) Neut # (Auto) Lymph # (Auto) [place] # (Auto) Eos # (Auto) Baso # (Auto) Immature Gran # (Auto) VBG pH Sodium Potassium Chloride Carbon Dioxide Anion Gap BUN Creatinine Est Cr Clr Drug Dosing Est GFR ( Amer) Est GFR (Non-Af Amer) BUN/Creatinine Ratio Glucose POC Glucose 224 H 192 H 154 H Calcium Phosphorus Magnesium Troponin I High Sens Blood Type Antibody Screen 12/19/21 12/19/21 15:40 16:34 WBC RBC Hgb Hct MCV MCH MCHC RDW Std Deviation RDW Coeff of Robyn Plt Count MPV Immature Gran % (Auto) Neut % (Auto) Lymph % (Auto) [place] % (Auto) Eos % (Auto) Baso % (Auto) Neut # (Auto) Lymph # (Auto) [place] # (Auto) Eos # (Auto) Baso # (Auto) Immature Gran # (Auto) VBG pH Sodium Potassium Chloride Carbon Dioxide Anion Gap BUN Creatinine Est Cr Clr Drug Dosing Est GFR ( Amer) Est GFR (Non-Af Amer) BUN/Creatinine Ratio Glucose POC Glucose 166 H 153 H Calcium Phosphorus Magnesium Troponin I High Sens Blood Type Antibody Screen PG Care Time/CCT Total # of Minutes Spent Total Time Spent with Patient: Total time spent is greater than 50% in coordination of care (as documented) at patient's floor/unit and/or counseling patient: Coding Level of Care Code 49401 Subseq Hosp Care Lvl 3 Diagnoses Subcapital fracture of left hip S72.012A Encounter type: initial encounter Fracture type: closed Paroxysmal SVT (supraventricular tachycardia) I47.1 Paroxysmal A-fib I48.0 Hypertension I10 Hypertension type: unspecified Hyperlipidemia E78.5 Hypothyroidism E03.9 Diabetes mellitus type 2, uncontrolled Hypomagnesemia E83.42 Hypophosphatemia E83.39 Mild cognitive impairment G31.84 DVT prophylaxis Z29.9 (1) Subcapital fracture of left hip Encounter type: initial encounter Fracture type: closed Qualified Code(s): S72.012A - Unspecified intracapsular fracture of left femur, initial encounter for closed fracture (2) Hypertension Hypertension type: unspecified Qualified Code(s): I10 - Essential (primary) hypertension
[2021-12-20] MEDS: MoRPHine SULFATE 2 MG/ML CARP IV PRN ×2 (01:15→11:59)
[2021-12-20] MEDS ORDERED: Nursing to Pharmacy Communication SCH (02:15)
[2021-12-20] MEDS: INSULIN ASPART PER UNIT SC SCH ×3 (05:47→21:06)
[2021-12-20] MEDS: LEVOTHYROXINE SODIUM 125 MCG TABLET PO SCH (05:47)
[2021-12-20 05:51] LABS: Hematocrit (blood only) 36.1 % (40.1-51.0); Hemoglobin 12.9 g/dl (14.0-18.0); Mean Corpuscular Hemoglobin 30.6 pg (25.0-34.0); Mean Corpuscular Hgb Conc 35.7 g/dL (32.0-36.0); Mean Corpuscular Volume 85.7 fL (80.0-100.0); Mean Platelet Volume 9.2 fL (9.4-12.4); Platelet Count 155 K/uL (130-400); RDW Coefficient of Variation 12.7 % (11.5-14.5); RDW Standard Deviation 39.5 fL (36.4-46.3); Red Blood Count 4.21 M/uL (4.63-6.08); White Blood Count 6.78 K/ul (4.8-10.8)
[2021-12-20 06:48] LABS: BUN Creatinine Ratio 21.4 (10-20); Calcium 8.3 mg/dl (8.5-10.1); Creatinine Clr Calc Pharmacy 110.6 ml/min; Est GFR (Non-African American) 98.3 ml/min; Magnesium 1.5 mg/dl (1.7-2.4); Phosphorus 2.8 mg/dl (2.5-4.9); Potassium 3.9 mmol/L (3.5-5.1)
[2021-12-20] MEDS ORDERED: METOPROLOL TARTRATE 25 MG TAB PO STA (08:33)
[2021-12-20] MEDS: MAGNESIUM SULFATE / D5W 1 GM/100 ML BAG IV SCH ×2 (08:54→10:22)
[2021-12-20] MEDS: NICOTINE 21 MG/24 HR TDSY TD SCH (08:58)
[2021-12-20] MEDS: POTASSIUM CHLORIDE CRTAB 20 MEQ TABCR PO SCH (08:58)
[2021-12-20] MEDS: MAGNESIUM OXIDE 400 MG TAB PO SCH (08:58)
[2021-12-20] MEDS: LANTUS PER UNIT CHARGE SQ SCH ×2 (08:59→21:05)
[2021-12-20] MEDS ORDERED: INSULIN ASPART PER UNIT SC SCH (09:00)
--- NOTE | 2021-12-20 13:57 | Pharmacy Report ---
Pharmacy Glycemic Short Note 2 - Date of Service December 20, 2021 - Glycemic Short BSG Results (Last 24 hours): 12/19/21 12/19/21 12/19/21 14:30 15:40 16:34 Glucose POC Glucose 154 H 166 H 153 H 12/19/21 12/20/21 12/20/21 20:10 01:24 05:36 Glucose POC Glucose 220 H 257 H 243 H 12/20/21 12/20/21 05:43 11:40 Glucose 264 H POC Glucose 225 H OUTPATIENT ANTIDIABETIC REGIMEN: * Lantus 15 units SC BID * Novolog 03/12/13 units TIDM, plus sliding scale with correction factor of 35 mg/dL/unit * Metformin * HbA1c 8.5% on 12/06/21 ASSESSMENT: 12/20 * Drip was transitioned off last night, BSGs trended up overnight with fasting elevated this morning. * Will switch to 15 units BID to provide ~25% increase in basal, patient is NPO but BSGs remain elevated * Continue current novolog parameters 12/19 * Anion gap closed. BSG's in goal range. Insulin drip running at 2.5 units/hr * Discussed w Dr. Mc - diet ordered for today, but will be NPO after midnight for anticipated procedure/TIMOTHY tomorrow. OK to transition off insulin drip and stop IVF * Prior hospitalization reviewed and will be the basis for determining current regimen. Home dose Lantus likely appropriate for inpatient, but will give total daily dose now instead of splitting BID to help transition off of insulin drip. Will refrain from evening dose due to NPO in AM. Will slightly dose adjust AM dose down as well due to NPO overnight tonight * Novolog based on prior admission, with adjustment to prevent hypoglycemia at dinner especially Background * 66 yo M with T2DM admitted with a hip fracture on 12/18 and found to be profoundly hyperglycemic. History notable both for diabetic coma last year and also history of severe lows when on an insulin drip prior, per discussion with Josie Stephens (who obtained this information from a friend of the patient). Discussed risks/benefits of insulin drip given elevated anion gap - plan to initiate insulin drip with DKA protocol which includes reflex dextrose in IV once BSG's in goal range. Plan is to continue drip with dextrose containing fluids until tomorrow AM, when patient can hopefully be transitioned safely off of the drip. PLAN FOR INPATIENT GLYCEMIC CONTROL: * Hold outpatient oral diabetes medication * * Basal insulin * Lantus 15 units BID * Bolus insulin * Goal range 110-140 mg/dL * Correction factor: 25 mg/dL/unit at breakfast, 30 mg/dL/unit at lunch, dinner, and bedtime * Carb ratio: 8 g CHO/unit at breakfast, 9 g CHO/unit at lunch, dinner, and bedtime
[2021-12-20] MEDS ORDERED: fentaNYL citrate 100 MCG/2 ML VIAL ONE (16:27)
[2021-12-20] MEDS ORDERED: MIDAZOLAM HCL 1 MG/ML 2ML VIAL ONE (16:27)
[2021-12-20] MEDS ORDERED: ONDANSETRON INJ 2 MG/ML 2 ML VIAL ONE (16:33)
[2021-12-20] MEDS ORDERED: LIDOCAINE 2% MPF LOCAL 5 ML VIAL INFIL ONE (16:34)
[2021-12-20] MEDS ORDERED: PROPOFOL IV EMULSION 10 MG/ML 20 ML VIAL IV ONE ×3 (16:34)
[2021-12-20] MEDS ORDERED: BUPIVACAINE 0.5 % 5 MG/1 ML PF 10ML VIAL ONE (16:46)
[2021-12-20] MEDS ORDERED: ceFAZolin 2000MG 2,000 MG/15 ML SYR IV ONE (16:58)
[2021-12-20] MEDS ORDERED: ePHEDrine sulfate 50 MG/ML AMP IV PRN (17:01)
[2021-12-20] MEDS ORDERED: HYDROmorphone INJ 1 MG/ML SYRINGE IV PRN (17:01)
[2021-12-20] MEDS ORDERED: ATROPINE SULFATE 0.1 MG/ML 10ML SYR IV PRN (17:01)
[2021-12-20] MEDS ORDERED: fentaNYL citrate 100 MCG/2 ML VIAL IV PRN (17:01)
[2021-12-20] MEDS ORDERED: ONDANSETRON INJ 2 MG/ML 2 ML VIAL IV PRN ×2 (17:01→18:26)
[2021-12-20] MEDS ORDERED: ceFAZolin 2,000 MG/15 ML IV PUSH IV ONE (17:01)
--- NOTE | 2021-12-20 17:09 | Orthopedic Progress Note ---
Date of Service December 20, 2021 Assessment & Plan (1) Subcapital fracture of left hip: Plan: patient evaluated for acute injury to his left hip, xrays were reviewed which is showing a impacted, mildly displaced subcapital fracture. Discussed x-rays with Dr Howell as well as Dr Baker and recommend surgical fixation with left total hip replacement. patient is currently on anticoagulants, it appears last dose was on Sunday evening, will cont hold on this and will plan on OR Sunday by Dr Baker, patient can have diet today and NPO after MN tonight. [place] [facility] [place] [phone] The risks and benefits have been discussed including, but not limited to, risk of infection, nerve injury, stiffness, loss of motion, failure to improve, etc. Reasonable outcomes and options of treatment were discussed. An explanation of appropriate alternatives to the procedure that may be advantageous were discussed and their risks and benefits, as well as the risks and benefits of not proceeding with treatment. I offered to answer any additional inquiries concerning the treatment involved. All the patient's questions were answered. The patient is agreeable, understanding of the treatment plan and alternatives, and wishes to proceed with the treatment plan. Plan plan is for total hip arthroplasty left today. pt and i signed consent together today Admission and Anticipated Discharge Date Admission Date: December 18, 2021 Subjective patient resting comfortably in bed c/o L hip pain but otherwise he feels ok eating fine no dyspnea no chest pain remains on insulin drip per pharmacy guidance - BSGs <200 today had episode of SVT yesterday - no symptoms from such, lasted about 1 minute, then resolved no further dysrhythmia seen on tele since that SVT run he is aware of L hip ORIF tomorrow pt was seen and examined today. Results & Data ([facility]) Vital Signs (Past 12 Hours) Vital Signs Temp Pulse Pulse Pulse Resp BP BP 12/20/21 16:17 37.1 C 81 20 153/106 H 151/101 H 12/20/21 15:00 75 12/20/21 16:09 36.6 C 18 145/109 H 12/20/21 11:00 36.4 C L 60 18 160/88 H 12/20/21 07:00 75 12/20/21 07:12 37.1 C 83 18 137/112 H 140/105 H Pulse Ox O2 Del Method 12/20/21 16:17 98 Room Air 12/20/21 15:00 12/20/21 16:09 95 Room Air 12/20/21 11:00 94 Room Air 12/20/21 07:00 12/20/21 07:12 97 Room Air (1) Subcapital fracture of left hip Encounter type: initial encounter Fracture type: closed Qualified Code(s): S72.012A - Unspecified intracapsular fracture of left femur, initial encounter for closed fracture
[2021-12-20] MEDS ORDERED: ROPIVACAINE 0.5% HCL/PF 150 MG, BUPIVACAINE 0.75% MPF 20 ML, EPINEPHrine 0.15 MG, Ketor... INFIL SCH (17:30)
[2021-12-20] MEDS ORDERED: oxyCODONE HCL IR 5 MG TAB (IMMEDIATE RELEASE) PO PRN (18:26)
[2021-12-20] MEDS ORDERED: bisacodyL 10 MG SUPP PR PRN (18:26)
[2021-12-20] MEDS ORDERED: METOCLOPRAMIDE HCL INJ 5 MG/ML 2 ML VIAL IV PRN (18:26)
--- NOTE | 2021-12-20 18:36 | Operative Report ---
Post Operative Report Pre & Post Diagnosis Operation Date: 12/20/21 07:00 Pre-Op Diagnosis: Displaced Left Femoral Neck Fracture Post-Op Diagnosis: Displaced Left Femoral Neck Fracture I identified the patient and participated in the time-out.: Yes Procedure Operation Date: 12/20/21 07:00 Actual Procedures p Left Total Hip Arthroplasty-Uncemented(Left) - Jeremy Baker DO Surgeon Jeremy Baker DO Cloth Washer Joseph Salazar PAC Estimated Blood Loss 50 Findings Consistent with Post-Op Diagnosis Specimens none Complications none Description of Procedure IMPLANTS USED: Daria size 60 mm Trident 2 Tritanium acetabular cup, 1 acetabular screw, #8 Accolade 2 stem with a 127 neck, 36 mm -5 ceramic head INDICATIONS: ] is a pleasant male who has unfortunately failed all forms of conservative measures after he had taken a fall and sustained a displaced left femoral neck fracture. Therefore, they have has decided to undergo elective surgical intervention. All risks and benefits of the surgery were discussed with the patient and the family in entirety. PROCEDURE: The patient was brought to the operating room and properly identified by myself, anesthesia, and staff. Patient was given a spinal anesthetic and placed on the operating table with the left hip up. The hip was then prepped and draped in the standard orthopedic fashion. We made a standard posterolateral approach over the greater trochanteric area. We then dissected down to subcutaneous tissue until the fascia was identified. We incised the fascia in line with the skin incision. We then split the gluteus baudilio muscles with finger dissection. We then put the Charnley retractor in place. We placed the retractor underneath the gluteus medius to expose the piriformis. The piriformis was then tagged with a tag suture and released from the insertion from the greater trochanteric area with the use of electrocautery. We then performed a T capsulotomy and the femoral head and neck were atraumatically dislocated. The femoral head and neck were fractured in multiple locations and all pieces were removed. We then made a cleanup cut on the femoral neck. . We then placed the retractor around the acetabulum. We then began to ream the acetabulum to the appropriate size. We then impacted the cup into place and had a very good fixation within the pelvis. We then put the liner in place as well. Then using multiple [facility] a size #8 fit very nicely in the proximal femur. I then put trial components in place. WE had very good range of motion, excellent stability, and excellent leg length equality. We removed the trial components and irrigated the wound. We then impacted the components in place and irrigated the wound once more. We then closed the capsule and fascia with a 0 Vicryl suture, the deep dermis with 2-0 Vicryl suture, and finally the skin with a running 3-0 Vicryl subcuticular stitch. A sterile dressing was applied. The patient was taken to the recovery room in stable condition. Due to the complex nature of the procedure, the entire surgery was performed with the operational assistance of Joseph Salazar PA-C. The corporate legal assistant was under direct supervision, was involved in the actual performance of all aspects of the surgical procedure including hemostasis, tissue retraction and incision, instrument management, patient positioning, and wound closure. I attest to the content of the Intraoperative Record and any orders documented therein. Any exceptions are noted below.
--- NOTE | 2021-12-20 18:52 | Anesthesiology Progress Note ---
Date of Service December 20, 2021 Anesthesia Post Procedure Vital Signs Vital Signs: Temp Pulse Pulse Pulse Resp BP BP 12/20/21 16:17 37.1 C 81 20 153/106 H 12/20/21 15:00 75 12/20/21 16:09 36.6 C 18 145/109 H 12/20/21 11:00 36.4 C L 60 18 160/88 H 12/20/21 07:00 75 12/20/21 07:12 37.1 C 83 18 137/112 H 12/20/21 04:00 12/20/21 02:20 36.9 C 76 18 151/95 H 12/20/21 00:00 12/19/21 19:15 12/19/21 23:07 36.8 C 81 18 131/93 12/19/21 22:15 93 H 12/19/21 20:00 12/19/21 19:23 107 H 128/90 12/19/21 19:21 107 H 128/90 12/19/21 19:00 36.7 C 97 H 18 BP Pulse Ox Pulse Ox O2 Del Method O2 Del Method 12/20/21 16:17 151/101 H 98 Room Air 12/20/21 15:00 12/20/21 16:09 95 Room Air 12/20/21 11:00 94 Room Air 12/20/21 07:00 12/20/21 07:12 140/105 H 97 Room Air 12/20/21 04:00 93 Room Air 12/20/21 02:20 93 Room Air 12/20/21 00:00 94 Room Air 12/19/21 19:15 Room Air 12/19/21 23:07 95 12/19/21 22:15 12/19/21 20:00 96 Room Air 12/19/21 19:23 12/19/21 19:21 12/19/21 19:00 129/93 93 Room Air Pain Intensity Left Hip: Pain Intensity: 4 Transfer of Care Handoff Completed per policy Notes Mental Status: alert / awake / arousable and participated in evaluation Patient Amnestic to Procedure: Yes Nausea / Vomiting: adequately controlled Pain: adequately controlled Airway Patency, RR, SpO2: stable & adequate BP & HR: stable & adequate Hydration State: stable & adequate Neuraxial Anesthesia: was administered and sensory block is resolving Anesthetic Complications: no major complications apparent and Pt Satisfied with anesthetic care
--- NOTE | 2021-12-20 19:21 | Hospitalist Progress Note ---
Date of Service December 20, 2021 Assessment & Plan (1) Subcapital fracture of left hip: Plan: Mechanical after rolling out of bed during a vivid dream cardiology has seen - he is optimized for surgery. Now s/p left total hip arthroplasty-uncemented on 12/[address] Baker recent 25-OH vit D level on 12/06/21 was 32. -Postoperative management as per orthopedic surgery -Continue pain control, bowel regimen as needed -PT/OT consults -Follow CBC and BMP in the morning to assess for blood loss and monitor of renal function and electrolytes To resume Xarelto for DVT prophylaxis (2) Paroxysmal SVT (supraventricular tachycardia): Plan: episode of SVT after admission lasting 1 minute with a rate of 200 this was NOT VT; he has RBBB at baseline hence the wide complex morphology. appreciate Dr Nguyen's consultation. echo here with preserved EF. cont metoprolol tartrate 25mg BID. cont telemetry monitoring postoperatively Keep electrolytes replete-give 2 g IV magnesium sulfate today Follow BMP and magnesium in the morning (3) Paroxysmal A-fib: Plan: First diagnosed in 2020. Typically on Xarelto 20 mg at bedtime (on hold for hip surgery). Cont metoprolol. No a.fib seen on tele since admission. Echo wnl. Appreciate cardiology consult from Dr Nguyen. (4) Hypertension: Plan: Blood pressures are a bit elevated after holding home amlodipine, lisinopril, and triamterene/HCTZ cont metoprolol BID. Okay to restart amlodipine 5 mg daily in the morning Continue to hold home lisinopril and triamterene/HCTZ until renal function and blood pressure reassessed in the morning Follow BMP (5) Hyperlipidemia: Plan: Continue statin. (6) Hypothyroidism: Plan: Continue Levothyroxine. TSH 08/2021 wnl. (7) Diabetes mellitus type 2, uncontrolled: Plan: appreciate pharmacy glycemic consult & recs/management. Required insulin infusion for hyperglycemia with blood sugars in the 400s on admission BSGs now significantly improved. a1c 8.5% defer management to pharmacy. Continue basal and bolus insulin patient follows with Megan Caponeor - hematology nurse educator - at endo clinic. (8) Hypomagnesemia: Plan: replace IV again today Likely secondary to HCTZ use repeat mag level am (9) Mild cognitive impairment: Plan: noted try to avoid sedatives; would be at risk of hospital delirium, etc thus far he remains stable in this standpoint (10) DVT prophylaxis: Plan: SCDs resume Xarelto post-op as ordered by orthopedic surgery Plan Disposition-continued stay on PCU Will need rehab Admission and Anticipated Discharge Date Admission Date: December 18, 2021 Subjective Patient seen in the PACU after surgery. He denied any pain but was still under the effect of spinal anesthesia. Denied chest pains or shortness of breath. No nausea or abdominal pains. Telemetry review from overnight showed normal sinus rhythm, PACs, and a 3 beat run of PVCs. No further SVT Review of Systems Review of Systems: All systems reviewed & are unremarkable except as noted in HPI & below Physical Exam Constitutional: WD/WN, vitals as above Eyes: + anicteric sclerae ENMT: external ear and nose normal, oropharynx normal Neck: trachea midline, no thyromegaly Respiratory: normal respiratory effort, lungs clear to auscultation Cardiovascular: RRR, no murmur, no edema Chest (Breasts): Chest: normal inspection of chest Gastrointestinal (Abdomen): normal bowel sounds, soft, nontender, no hepatosplenomegaly Musculoskeletal: Extremities: + extremities abnormal to inspection (Left hip with dressing in place CDI), no cyanosis and no clubbing Skin: no rashes, warm and dry Neurologic: moves all extremities and awake; no focal motor deficits (Except currently not able to move lower extremities status post spinal) Psychiatric: A+Ox3, euthymic affect Lymphatic: no lymphedema Results & Data Results & Data ([facility]) Vital Signs (Past 12 Hours) Vital Signs Temp Pulse Pulse Pulse Resp BP BP 12/20/21 19:00 66 17 127/86 12/20/21 18:50 72 19 121/90 12/20/21 18:42 36.5 C 75 16 115/76 12/20/21 16:17 37.1 C 81 20 153/106 H 151/101 H 12/20/21 15:00 75 12/20/21 16:09 36.6 C 18 145/109 H 12/20/21 11:00 36.4 C L 60 18 160/88 H Pulse Ox O2 Del Method O2 Flow Rate 12/20/21 19:00 100 Oxymask 2 12/20/21 18:50 100 Oxymask 3 12/20/21 18:42 97 Oxymask 5 12/20/21 16:17 98 Room Air 12/20/21 15:00 12/20/21 16:09 95 Room Air 12/20/21 11:00 94 Room Air Laboratory Results 12/20/21 12/20/21 12/20/21 Range/Units 18:45 16:16 11:40 WBC (4.8-10.8) K/ul RBC (4.63-6.08) M/uL Hgb (14.0-18.0) g/dl Hct (40.1-51.0) % MCV (80.0-100.0) fL MCH (25.0-34.0) pg MCHC (32.0-36.0) g/dL RDW Std Deviation (36.4-46.3) fL RDW Coeff of Robyn (11.5-14.5) % Plt Count (130-400) K/uL MPV (9.4-12.4) fL Sodium (136-145) mmol/L Potassium (3.5-5.1) mmol/L Chloride (98-107) mmol/L Carbon Dioxide (21-32) mmol/L Anion Gap (3-11) BUN (6-23) mg/dl Creatinine (0.6-1.4) mg/dl Est Cr Clr Drug Dosing ml/min Est GFR ( Amer) ml/min Est GFR (Non-Af Amer) ml/min BUN/Creatinine Ratio (10-20) Glucose (70-99(Fasting)) mg/dl POC Glucose 152 H 146 H 225 H (70-99) mg/dl Calcium (8.5-10.1) mg/dl Phosphorus (2.5-4.9) mg/dl Magnesium (1.7-2.4) mg/dl 12/20/21 12/20/21 12/20/21 Range/Units 05:43 05:39 05:36 WBC 6.78 (4.8-10.8) K/ul RBC 4.21 L (4.63-6.08) M/uL Hgb 12.9 L (14.0-18.0) g/dl Hct 36.1 L (40.1-51.0) % MCV 85.7 (80.0-100.0) fL MCH 30.6 (25.0-34.0) pg MCHC 35.7 (32.0-36.0) g/dL RDW Std Deviation 39.5 (36.4-46.3) fL RDW Coeff of Robyn 12.7 (11.5-14.5) % Plt Count 155 (130-400) K/uL MPV 9.2 L (9.4-12.4) fL Sodium 134 L (136-145) mmol/L Potassium 3.9 (3.5-5.1) mmol/L Chloride 104 (98-107) mmol/L Carbon Dioxide 22 (21-32) mmol/L Anion Gap 8 (3-11) BUN 15 (6-23) mg/dl Creatinine 0.70 (0.6-1.4) mg/dl Est Cr Clr Drug Dosing 110.6 ml/min Est GFR ( Amer) 114.0 ml/min Est GFR (Non-Af Amer) 98.3 ml/min BUN/Creatinine Ratio 21.4 H (10-20) Glucose 264 H (70-99(Fasting)) mg/dl POC Glucose 243 H (70-99) mg/dl Calcium 8.3 L (8.5-10.1) mg/dl Phosphorus 2.8 D (2.5-4.9) mg/dl Magnesium 1.5 L (1.7-2.4) mg/dl 12/20/21 12/19/21 Range/Units 01:24 20:10 WBC (4.8-10.8) K/ul RBC (4.63-6.08) M/uL Hgb (14.0-18.0) g/dl Hct (40.1-51.0) % MCV (80.0-100.0) fL MCH (25.0-34.0) pg MCHC (32.0-36.0) g/dL RDW Std Deviation (36.4-46.3) fL RDW Coeff of Robyn (11.5-14.5) % Plt Count (130-400) K/uL MPV (9.4-12.4) fL Sodium (136-145) mmol/L Potassium (3.5-5.1) mmol/L Chloride (98-107) mmol/L Carbon Dioxide (21-32) mmol/L Anion Gap (3-11) BUN (6-23) mg/dl Creatinine (0.6-1.4) mg/dl Est Cr Clr Drug Dosing ml/min Est GFR ( Amer) ml/min Est GFR (Non-Af Amer) ml/min BUN/Creatinine Ratio (10-20) Glucose (70-99(Fasting)) mg/dl POC Glucose 257 H 220 H (70-99) mg/dl Calcium (8.5-10.1) mg/dl Phosphorus (2.5-4.9) mg/dl Magnesium (1.7-2.4) mg/dl PG Care Time/CCT Total # of Minutes Spent Total Time Spent with Patient: Total time spent is greater than 50% in coordination of care (as documented) at patient's floor/unit and/or counseling patient: Coding Level of Care Code 57502 Subseq Hosp Care Lvl 2 Diagnoses Subcapital fracture of left hip S72.012A Encounter type: initial encounter Fracture type: closed Paroxysmal SVT (supraventricular tachycardia) I47.1 Paroxysmal A-fib I48.0 Hypertension I10 Hypertension type: unspecified Hyperlipidemia E78.5 Hypothyroidism E03.9 Diabetes mellitus type 2, uncontrolled Hypomagnesemia E83.42 Mild cognitive impairment G31.84 DVT prophylaxis Z29.9 (1) Subcapital fracture of left hip Encounter type: initial encounter Fracture type: closed Qualified Code(s): S72.012A - Unspecified intracapsular fracture of left femur, initial encounter for closed fracture (2) Hypertension Hypertension type: unspecified Qualified Code(s): I10 - Essential (primary) hypertension
[2021-12-20] MEDS: SODIUM CHLORIDE 0.9% 1000ML 1,000 ML IV SCH (19:54)
[2021-12-20] MEDS: ATORVASTATIN 40 MG TAB PO SCH (21:07)
[2021-12-20] MEDS: DOCUSATE SODIUM 100 MG CAP PO SCH (21:07)
[2021-12-20] MEDS: SENNA 8.6 MG TAB PO SCH (21:08)
[2021-12-20] MEDS: METOPROLOL TARTRATE 25 MG TAB PO SCH (21:08)
[2021-12-20] MEDS: ACETAMINOPHEN 500 MG TAB PO SCH (21:09)
[2021-12-21] MEDS: ceFAZolin 2000MG 2,000 MG/15 ML SYR IV SCH ×2 (00:04→08:13)
[2021-12-21] MEDS ORDERED: TRANEXAMIC ACID / 0.7% NACL 1,000 MG/100 ML BAG IV SCH (00:30)
[2021-12-21] MEDS: SODIUM CHLORIDE 0.9% 1000ML 1,000 ML IV SCH (04:50)
[2021-12-21] MEDS: ACETAMINOPHEN 500 MG TAB PO SCH ×3 (05:55→21:34)
[2021-12-21] MEDS: LEVOTHYROXINE SODIUM 125 MCG TABLET PO SCH (05:56)
[2021-12-21 06:40] LABS: Basophils # (auto) 0.02 K/uL (0-0.2); Basophils % (auto) 0.3 %; Eosinophils # (auto) 0.14 K/uL (0-0.50); Eosinophils % (auto) 2.3 %; Hematocrit (blood only) 31.1 % (40.1-51.0); Hemoglobin 11.1 g/dl (14.0-18.0); Immature Granulocytes # (auto) 0.04 K/uL (0.00-0.02); Immature Granulocytes % (auto) 0.7 %; Lymphocytes % (auto) 13.3 %; Mean Corpuscular Hemoglobin 31.2 pg (25.0-34.0); Mean Corpuscular Hgb Conc 35.7 g/dL (32.0-36.0); Mean Corpuscular Volume 87.4 fL (80.0-100.0); Mean Platelet Volume 9.7 fL (9.4-12.4); Monocytes # (auto) 0.57 K/uL (0.24-0.82); Monocytes % (auto) 9.5 %; Neutrophils # (auto) 4.43 K/uL (1.4-6.5); Neutrophils % (auto) 73.9 %; Platelet Count 138 K/uL (130-400); RDW Coefficient of Variation 12.6 % (11.5-14.5); RDW Standard Deviation 40.5 fL (36.4-46.3); Red Blood Count 3.56 M/uL (4.63-6.08)
[2021-12-21 07:16] LABS: BUN Creatinine Ratio 27.5 (10-20); Calcium 7.8 mg/dl (8.5-10.1); Creatinine Clr Calc Pharmacy 96.7 ml/min; Est GFR (African American) 107.9 ml/min; Est GFR (Non-African American) 93.1 ml/min; Magnesium 1.7 mg/dl (1.7-2.4); Potassium 4.4 mmol/L (3.5-5.1)
[2021-12-21] MEDS: METOPROLOL TARTRATE 25 MG TAB PO SCH ×2 (08:12→21:38)
[2021-12-21] MEDS: MULTIVITAMIN TAB PO SCH (08:12)
[2021-12-21] MEDS: DOCUSATE SODIUM 100 MG CAP PO SCH ×2 (08:12→21:35)
[2021-12-21] MEDS: NICOTINE 21 MG/24 HR TDSY TD SCH (08:12)
[2021-12-21] MEDS: POTASSIUM CHLORIDE CRTAB 20 MEQ TABCR PO SCH (08:12)
[2021-12-21] MEDS: INSULIN ASPART PER UNIT SC SCH ×4 (08:14→21:16)
[2021-12-21] MEDS: LANTUS PER UNIT CHARGE SQ SCH ×2 (08:15→21:32)
[2021-12-21] MEDS: MAGNESIUM SULFATE / D5W 1 GM/100 ML BAG IV SCH ×2 (09:26→13:06)
[2021-12-21] MEDS: MAGNESIUM OXIDE 400 MG TAB PO SCH (09:26)
[2021-12-21] MEDS ORDERED: LACTATED RINGER'S 500 ML IV ONE (09:31)
[2021-12-21] MEDS ORDERED: oxyCODONE HCL IR 5 MG TAB (IMMEDIATE RELEASE) PO PRN (09:33)
--- NOTE | 2021-12-21 11:43 | Hospitalist Progress Note ---
Date of Service December 21, 2021 Assessment & Plan (1) Subcapital fracture of left hip: Plan: Mechanical after rolling out of bed during a vivid dream Now s/p left total hip arthroplasty-uncemented on 12/[address] Baker recent 25-OH vit D level on 12/06/21 was 32. -Postoperative management as per orthopedic surgery -with minimal hgb drop, having some post-op orthostatic hypotension-bolus with 500mL LR x 1, monitor BPs and hold antihypertensives -Continue pain control but dc oxycodone to 5mg po down from 10mg and add tylenol -continue bowel regimen as needed -PT/OT consults -Follow CBC and BMP in the morning to assess for blood loss and monitor of renal function and electrolytes -continue Xarelto for DVT prophylaxis (2) Paroxysmal SVT (supraventricular tachycardia): Plan: episode of SVT after admission lasting 1 minute with a rate of 200 this was NOT VT; he has RBBB at baseline hence the wide complex morphology. appreciate Dr Nguyen's consultation. echo here with preserved EF. cont metoprolol tartrate 25mg BID with hold parameters for low BP cont telemetry monitoring postoperatively Keep electrolytes replete-give 2 g IV magnesium sulfate again today Follow BMP and magnesium in the morning (3) Paroxysmal A-fib: Plan: First diagnosed in 2020. Continue Xarelto 20 mg at bedtime Cont metoprolol. No a.fib seen on tele since admission. Echo wnl. Appreciate cardiology consult from Dr Nguyen. (4) Hypertension: Plan: Now hypotensive, hgb fairly stable -will hold home amlodipine, lisinopril, and triamterene/HCTZ cont metoprolol BID as able to for h/o SVT. Follow BMP (5) Hyperlipidemia: Plan: Continue statin. (6) Hypothyroidism: Plan: Continue Levothyroxine. TSH 08/2021 wnl. (7) Diabetes mellitus type 2, uncontrolled: Plan: appreciate pharmacy glycemic consult & recs/management. Required insulin infusion for hyperglycemia with blood sugars in the 400s on admission BSGs now significantly improved but creeping up again a1c 8.5% defer management to pharmacy. Continue basal and bolus insulin and increasing doses today patient follows with Megan Caponeor - special education paraeducator - at endo clinic. (8) Hypomagnesemia: Plan: replace IV again today Likely secondary to HCTZ use repeat mag level am (9) Mild cognitive impairment: Plan: noted try to avoid sedatives; would be at risk of hospital delirium, etc thus far he remains stable in this standpoint (10) DVT prophylaxis: Plan: SCDs resumed Xarelto post-op as ordered by orthopedic surgery Plan Disposition-continued stay on PCU Will need rehab Admission and Anticipated Discharge Date Admission Date: December 18, 2021 Subjective Pt c/o a lot of pain in his left hip and buttock "like someone took a power drill to my butt." Had some lower BPs with getting out of bed to chair with PT but denies any lightheadedness, no CP or SOB. No nausea. is eating. Cook in place. Tele with NSR, IVCD, rates 70-80s Review of Systems Review of Systems: All systems reviewed & are unremarkable except as noted in HPI & below Physical Exam Constitutional: WD/WN, vitals as above Eyes: + anicteric sclerae ENMT: external ear and nose normal, oropharynx normal Neck: trachea midline, no thyromegaly Respiratory: normal respiratory effort, lungs clear to auscultation Cardiovascular: RRR, no murmur, no edema Chest (Breasts): Chest: normal inspection of chest Gastrointestinal (Abdomen): normal bowel sounds, soft, nontender, no hepatosplenomegaly Musculoskeletal: Extremities: + extremities abnormal to inspection (Left hip with dressing in place CDI), no cyanosis and no clubbing Skin: no rashes, warm and dry Neurologic: moves all extremities and awake; no focal motor deficits Psychiatric: A+Ox3, euthymic affect Genitourinary: Cook in place draining clear yellow urine Lymphatic: no lymphedema Results & Data Results & Data ([facility]) Vital Signs (Past 12 Hours) Vital Signs Temp Pulse Resp BP BP Pulse Ox O2 Del Method 12/21/21 10:35 36.8 C 82 17 90/68 L 98 Room Air 12/21/21 08:02 36.8 C 81 18 113/69 97 Room Air 12/21/21 04:23 37.6 C H 79 18 107/80 97 Room Air Laboratory Results 12/21/21 12/21/21 12/21/21 Range/Units 20:03 16:20 11:20 WBC (4.8-10.8) K/ul RBC (4.63-6.08) M/uL Hgb (14.0-18.0) g/dl Hct (40.1-51.0) % MCV (80.0-100.0) fL MCH (25.0-34.0) pg MCHC (32.0-36.0) g/dL RDW Std Deviation (36.4-46.3) fL RDW Coeff of Robyn (11.5-14.5) % Plt Count (130-400) K/uL MPV (9.4-12.4) fL Immature Gran % (Auto) % Neut % (Auto) % Lymph % (Auto) % [place] % (Auto) % Eos % (Auto) % Baso % (Auto) % Neut # (Auto) (1.4-6.5) K/uL Lymph # (Auto) (1.2-3.4) K/uL [place] # (Auto) (0.24-0.82) K/uL Eos # (Auto) (0-0.50) K/uL Baso # (Auto) (0-0.2) K/uL Immature Gran # (Auto) (0.00-0.02) K/uL Sodium (136-145) mmol/L Potassium (3.5-5.1) mmol/L Chloride (98-107) mmol/L Carbon Dioxide (21-32) mmol/L Anion Gap (3-11) BUN (6-23) mg/dl Creatinine (0.6-1.4) mg/dl Est Cr Clr Drug Dosing ml/min Est GFR ( Amer) ml/min Est GFR (Non-Af Amer) ml/min BUN/Creatinine Ratio (10-20) Glucose (70-99(Fasting)) mg/dl POC Glucose 129 H 320 H* 272 H (70-99) mg/dl Calcium (8.5-10.1) mg/dl Magnesium (1.7-2.4) mg/dl 12/21/21 12/21/21 12/21/21 Range/Units 07:19 06:03 06:03 WBC 6.00 (4.8-10.8) K/ul RBC 3.56 L (4.63-6.08) M/uL Hgb 11.1 L (14.0-18.0) g/dl Hct 31.1 L (40.1-51.0) % MCV 87.4 (80.0-100.0) fL MCH 31.2 (25.0-34.0) pg MCHC 35.7 (32.0-36.0) g/dL RDW Std Deviation 40.5 (36.4-46.3) fL RDW Coeff of Robyn 12.6 (11.5-14.5) % Plt Count 138 (130-400) K/uL MPV 9.7 (9.4-12.4) fL Immature Gran % (Auto) 0.7 % Neut % (Auto) 73.9 % Lymph % (Auto) 13.3 % [place] % (Auto) 9.5 % Eos % (Auto) 2.3 % Baso % (Auto) 0.3 % Neut # (Auto) 4.43 (1.4-6.5) K/uL Lymph # (Auto) 0.80 L (1.2-3.4) K/uL [place] # (Auto) 0.57 (0.24-0.82) K/uL Eos # (Auto) 0.14 (0-0.50) K/uL Baso # (Auto) 0.02 (0-0.2) K/uL Immature Gran # (Auto) 0.04 H (0.00-0.02) K/uL Sodium 134 L (136-145) mmol/L Potassium 4.4 (3.5-5.1) mmol/L Chloride 105 (98-107) mmol/L Carbon Dioxide 24 (21-32) mmol/L Anion Gap 5 (3-11) BUN 22 (6-23) mg/dl Creatinine 0.80 (0.6-1.4) mg/dl Est Cr Clr Drug Dosing 96.7 ml/min Est GFR ( Amer) 107.9 ml/min Est GFR (Non-Af Amer) 93.1 ml/min BUN/Creatinine Ratio 27.5 H (10-20) Glucose 311 H* (70-99(Fasting)) mg/dl POC Glucose 283 H (70-99) mg/dl Calcium 7.8 L (8.5-10.1) mg/dl Magnesium 1.7 (1.7-2.4) mg/dl PG Care Time/CCT Total # of Minutes Spent Total Time Spent with Patient: Total time spent is greater than 50% in coordination of care (as documented) at patient's floor/unit and/or counseling patient: Coding Level of Care Code 64869 Subseq Hosp Care Lvl 3 Diagnoses Subcapital fracture of left hip S72.012A Encounter type: initial encounter Fracture type: closed Paroxysmal SVT (supraventricular tachycardia) I47.1 Paroxysmal A-fib I48.0 Hypertension I10 Hypertension type: unspecified Hyperlipidemia E78.5 Hypothyroidism E03.9 Diabetes mellitus type 2, uncontrolled Hypomagnesemia E83.42 Mild cognitive impairment G31.84 DVT prophylaxis Z29.9 (1) Subcapital fracture of left hip Encounter type: initial encounter Fracture type: closed Qualified Code(s): S72.012A - Unspecified intracapsular fracture of left femur, initial encounter for closed fracture (2) Hypertension Hypertension type: unspecified Qualified Code(s): I10 - Essential (primary) hypertension
--- NOTE | 2021-12-21 12:58 | Pharmacy Report ---
Pharmacy Glycemic Short Note 2 - Date of Service December 21, 2021 - Glycemic Short BSG Results (Last 24 hours): 12/20/21 12/20/21 12/20/21 16:16 18:45 20:05 Glucose POC Glucose 146 H 152 H 203 H 12/21/21 12/21/21 12/21/21 06:03 07:19 11:20 Glucose 311 H* POC Glucose 283 H 272 H OUTPATIENT ANTIDIABETIC REGIMEN: * Lantus 15 units SC BID * Novolog 03/12/13 units TIDM, plus sliding scale with correction factor of 35 mg/dL/unit * Metformin 500 mg PO BIDM * HbA1c = 8.5% (12/06/21) ASSESSMENT: 12/21: * Received 46 units of insulin yesterday, 30 units basal + 16 units bolus. BSGs were uncontrolled: [phone] mg/dL. * Fasting BSG was 283 mg/dL. This is increased from yesterday. Therefore will increase basal by 20% today. * BSGs continue to be above goal at all hours. Will tighten Novolog today to reflect weight/stress of 3. May need loosened later this evening as patient has a tendency to stack. 12/20: * Drip was transitioned off last night, BSGs trended up overnight with fasting elevated this morning. * Will switch to 15 units BID to provide ~25% increase in basal, patient is NPO but BSGs remain elevated * Continue current novolog parameters PLAN FOR INPATIENT GLYCEMIC CONTROL: * Hold outpatient oral diabetes medication * Basal insulin * Lantus 18 units SC BID * Bolus insulin * Goal range 110-140 mg/dL * Correction factor: 20 mg/dL/unit * Carb ratio: 7 g CHO/unit
--- NOTE | 2021-12-21 14:34 | Orthopedic Progress Note ---
Date of Service December 21, 2021 Assessment & Plan (1) Subcapital fracture of left hip: Plan: POD 1 s/p Left TIMOTHY PT/OT protocols. WBAT. DVT prophylaxis - Rivaroxaban, SCD's Pain managment as written. DC planning - Pt states he will be going to a rehab facility post discharge. Plan plan is for total hip arthroplasty left today. pt and i signed consent together today Admission and Anticipated Discharge Date Admission Date: December 18, 2021 Subjective POD 1 Pt sitting up in bed awake, alert. Having some hip pain with movement but currently comfortable. State the pain is less than when he was having the fx pain. No other complaints. Denies SOB, CP. States he was up with PT today. Ov erall, feeling well. Physical Exam Physical Exam: Dressing intact. Calves soft, NT. NV intact. Toes mobile. Leg lengths appear equal. Results & Data ([facility]) Vital Signs (Past 12 Hours) Vital Signs Temp Pulse Resp BP BP Pulse Ox O2 Del Method 12/21/21 10:35 36.8 C 82 17 90/68 L 98 Room Air 12/21/21 08:02 36.8 C 81 18 113/69 97 Room Air 12/21/21 04:23 37.6 C H 79 18 107/80 97 Room Air Laboratory Results Laboratory Results WBC 6.00 K/ul (4.8-10.8) 12/21/21 06:03 RBC 3.56 M/uL (4.63-6.08) L 12/21/21 06:03 Hgb 11.1 g/dl (14.0-18.0) L 12/21/21 06:03 Hct 31.1 % (40.1-51.0) L 12/21/21 06:03 MCV 87.4 fL (80.0-100.0) 12/21/21 06:03 MCH 31.2 pg (25.0-34.0) 12/21/21 06:03 MCHC 35.7 g/dL (32.0-36.0) 12/21/21 06:03 RDW Std Deviation 40.5 fL (36.4-46.3) 12/21/21 06:03 RDW Coeff of Robyn 12.6 % (11.5-14.5) 12/21/21 06:03 Plt Count 138 K/uL (130-400) 12/21/21 06:03 MPV 9.7 fL (9.4-12.4) 12/21/21 06:03 Immature Gran % (Auto) 0.7 % 12/21/21 06:03 Neut % (Auto) 73.9 % 12/21/21 06:03 Lymph % (Auto) 13.3 % 12/21/21 06:03 [place] % (Auto) 9.5 % 12/21/21 06:03 Eos % (Auto) 2.3 % 12/21/21 06:03 Baso % (Auto) 0.3 % 12/21/21 06:03 Neut # (Auto) 4.43 K/uL (1.4-6.5) 12/21/21 06:03 Lymph # (Auto) 0.80 K/uL (1.2-3.4) L 12/21/21 06:03 [place] # (Auto) 0.57 K/uL (0.24-0.82) 12/21/21 06:03 Eos # (Auto) 0.14 K/uL (0-0.50) 12/21/21 06:03 Baso # (Auto) 0.02 K/uL (0-0.2) 12/21/21 06:03 Immature Gran # (Auto) 0.04 K/uL (0.00-0.02) H 12/21/21 06:03 PT 12.7 Seconds (9.0-12.0) H 12/18/21 09:05 INR 1.2 (0.9-1.1) H 12/18/21 09:05 APTT 27.4 Seconds (21.0-31.0) 12/18/21 09:05 PTT Ratio 1.0 12/18/21 09:05 VBG pH 7.39 (7.36-7.41) 12/18/21 22:39 Sodium 134 mmol/L (136-145) L 12/21/21 06:03 Potassium 4.4 mmol/L (3.5-5.1) 12/21/21 06:03 Chloride 105 mmol/L (98-107) 12/21/21 06:03 Carbon Dioxide 24 mmol/L (21-32) 12/21/21 06:03 Anion Gap 5 (3-11) 12/21/21 06:03 BUN 22 mg/dl (6-23) 12/21/21 06:03 Creatinine 0.80 mg/dl (0.6-1.4) 12/21/21 06:03 Est Cr Clr Drug Dosing 96.7 ml/min 12/21/21 06:03 Est GFR ( Amer) 107.9 ml/min 12/21/21 06:03 Est GFR (Non-Af Amer) 93.1 ml/min 12/21/21 06:03 BUN/Creatinine Ratio 27.5 (10-20) H 12/21/21 06:03 Glucose 311 mg/dl (70-99(Fasting)) H* 12/21/21 06:03 POC Glucose 272 mg/dl (70-99) H 12/21/21 11:20 Calcium 7.8 mg/dl (8.5-10.1) L 12/21/21 06:03 Phosphorus 2.8 mg/dl (2.5-4.9) D 12/20/21 05:43 Magnesium 1.7 mg/dl (1.7-2.4) 12/21/21 06:03 Total Bilirubin 1.5 mg/dl (0.2-1.0) H 12/18/21 09:05 AST 14 U/L (13-39) 12/18/21 09:05 ALT 22 U/L (7-52) 12/18/21 09:05 Alkaline Phosphatase 110 U/L (34-104) H 12/18/21 09:05 Total Creatine Kinase 38 U/L (30-223) 12/18/21 09:05 Troponin I High Sens 9.9 pg/ml (0-20) 12/19/21 06:05 Total Protein 6.5 gm/dl (6.0-8.3) 12/18/21 09:05 Albumin 3.9 gm/dl (3.4-5.0) 12/18/21 09:05 Globulin 2.6 gm/dl (2.5-4.0) 12/18/21 09:05 Albumin/Globulin Ratio 1.5 (0.9-2) 12/18/21 09:05 Lipase 16 U/L (11-82) 12/18/21 09:05 Urine Color Yellow 12/18/21 10:00 Urine Appearance Clear (Clear) 12/18/21 10:00 Urine pH 5.5 (4.5-7.5) 12/18/21 10:00 Ur Specific [place] 1.034 (1.000-1.030) H 12/18/21 10:00 Urine Protein Negative (Negative) 12/18/21 10:00 Urine Glucose (UA) 3+ (Negative) H 12/18/21 10:00 Urine Ketones 4+ (Negative) H 12/18/21 10:00 Urine Blood Negative (Negative) 12/18/21 10:00 Urine Nitrite Negative (Negative) 12/18/21 10:00 Urine Bilirubin Negative (Negative) 12/18/21 10:00 Urine Urobilinogen Negative (Negative) 12/18/21 10:00 Ur Leukocyte Esterase Negative (Negative) 12/18/21 10:00 SARS-CoV-2, RNA, NAAT NEGATIVE (NEGATIVE) 12/18/21 09:05 Blood Type O Positive 12/18/21 09:21 Antibody Screen NEGATIVE 12/18/21 09:21 (1) Subcapital fracture of left hip Encounter type: initial encounter Fracture type: closed Qualified Code(s): S72.012A - Unspecified intracapsular fracture of left femur, initial encounter for closed fracture
[2021-12-21] MEDS: traMADol HCL 50 MG TABLET PO PRN (16:57)
[2021-12-21] MEDS: SENNA 8.6 MG TAB PO SCH (21:33)
[2021-12-21] MEDS: RIVAROXABAN 20 MG TAB PO SCH (21:35)
[2021-12-21] MEDS: ATORVASTATIN 40 MG TAB PO SCH (21:35)
[2021-12-22] MEDS: LEVOTHYROXINE SODIUM 125 MCG TABLET PO SCH (06:39)
[2021-12-22] MEDS: ACETAMINOPHEN 500 MG TAB PO SCH ×3 (06:40→21:31)
[2021-12-22 06:58] LABS: Basophils # (auto) 0.03 K/uL (0-0.2); Basophils % (auto) 0.6 %; Eosinophils # (auto) 0.26 K/uL (0-0.50); Eosinophils % (auto) 5.1 %; Hematocrit (blood only) 26.3 % (40.1-51.0); Hemoglobin 9.3 g/dl (14.0-18.0); Immature Granulocytes # (auto) 0.02 K/uL (0.00-0.02); Immature Granulocytes % (auto) 0.4 %; Lymphocytes # (auto) 1.56 K/uL (1.2-3.4); Lymphocytes % (auto) 30.9 %; Mean Corpuscular Hgb Conc 35.4 g/dL (32.0-36.0); Mean Corpuscular Volume 87.7 fL (80.0-100.0); Mean Platelet Volume 9.4 fL (9.4-12.4); Monocytes # (auto) 0.51 K/uL (0.24-0.82); Monocytes % (auto) 10.1 %; Neutrophils # (auto) 2.67 K/uL (1.4-6.5); Neutrophils % (auto) 52.9 %; Platelet Count 133 K/uL (130-400); RDW Coefficient of Variation 12.8 % (11.5-14.5); RDW Standard Deviation 40.8 fL (36.4-46.3); White Blood Count 5.05 K/ul (4.8-10.8)
[2021-12-22 07:22] LABS: BUN Creatinine Ratio 27.5 (10-20); Calcium 7.6 mg/dl (8.5-10.1); Creatinine Clr Calc Pharmacy 112.2 ml/min; Est GFR (African American) 114.7 ml/min; Est GFR (Non-African American) 98.9 ml/min; Magnesium 1.7 mg/dl (1.7-2.4); Potassium 3.8 mmol/L (3.5-5.1)
[2021-12-22] MEDS: INSULIN ASPART PER UNIT SC SCH ×5 (07:54→21:23)
[2021-12-22] MEDS: MULTIVITAMIN TAB PO SCH (07:56)
[2021-12-22] MEDS: NICOTINE 21 MG/24 HR TDSY TD SCH (07:56)
[2021-12-22] MEDS: MAGNESIUM OXIDE 400 MG TAB PO SCH (07:56)
[2021-12-22] MEDS: POTASSIUM CHLORIDE CRTAB 20 MEQ TABCR PO SCH (07:56)
[2021-12-22] MEDS: METOPROLOL TARTRATE 25 MG TAB PO SCH ×3 (07:56→21:33)
[2021-12-22] MEDS: DOCUSATE SODIUM 100 MG CAP PO SCH ×2 (07:56→21:32)
[2021-12-22] MEDS: LANTUS PER UNIT CHARGE SQ SCH ×2 (08:00→21:38)
[2021-12-22] MEDS: MAGNESIUM SULFATE / D5W 1 GM/100 ML BAG IV SCH ×2 (09:42→11:21)
--- NOTE | 2021-12-22 12:01 | Pharmacy Report ---
Pharmacy Glycemic Short Note 2 - Date of Service December 22, 2021 - Glycemic Short BSG Results (Last 24 hours): 12/21/21 12/21/21 12/22/21 16:20 20:03 06:46 Glucose 204 H POC Glucose 320 H* 129 H 12/22/21 12/22/21 07:12 11:30 Glucose POC Glucose 214 H 202 H OUTPATIENT ANTIDIABETIC REGIMEN: * Lantus 15 units SC BID * Novolog 03/12/13 units TIDM, plus sliding scale with correction factor of 35 mg/dL/unit * Metformin 500 mg PO BIDM * HbA1c = 8.5% (12/06/21) ASSESSMENT: 12/22: * Received 77 units of insulin yesterday, 36 of which were basal. BSGs yesterday: [phone]. BSGs are still elevated today but much improved from the past to days. Fasting BSG 214 down from 283 mg/dL. Will continue with current lantus and novolog regimen for today given significant downtrend and assess need for further adjustment tomorrow. 12/21: * Received 46 units of insulin yesterday, 30 units basal + 16 units bolus. BSGs were uncontrolled: [phone] mg/dL. * Fasting BSG was 283 mg/dL. This is increased from yesterday. Therefore will increase basal by 20% today. * BSGs continue to be above goal at all hours. Will tighten Novolog today to reflect weight/stress of 3. May need loosened later this evening as patient has a tendency to stack. 12/20: * Drip was transitioned off last night, BSGs trended up overnight with fasting elevated this morning. * Will switch to 15 units BID to provide ~25% increase in basal, patient is NPO but BSGs remain elevated * Continue current novolog parameters PLAN FOR INPATIENT GLYCEMIC CONTROL: * Hold outpatient oral diabetes medication * Basal insulin * Lantus 18 units SC BID * Bolus insulin * Goal range 110-140 mg/dL * Correction factor: 20 mg/dL/unit * Carb ratio: 7 g CHO/unit
[2021-12-22] MEDS ORDERED: MoRPHine SULFATE 2 MG/ML CARP IV PRN (14:48)
--- NOTE | 2021-12-22 14:54 | Hospitalist Progress Note ---
Date of Service December 22, 2021 Assessment & Plan (1) Subcapital fracture of left hip: Plan: Mechanical after rolling out of bed during a vivid dream Now s/p left total hip arthroplasty-uncemented on 12/[address] Baker recent 25-OH vit D level on 12/06/21 was 32. -Postoperative management as per orthopedic surgery -had some post-op orthostatic hypotension which improved with bolus with 500mL LR x 1 and holding antihypertensives -Continue pain control-not controlled--> increase oxycodone to 5-10mg po q6h prn pain and add IV morphine for severe pain, continue tylenol scheduled -continue bowel regimen as needed -PT/OT consults -Follow CBC and BMP in the morning to assess for blood loss and monitor of renal function and electrolytes -continue Xarelto for DVT prophylaxis (2) Paroxysmal SVT (supraventricular tachycardia): Plan: episode of SVT after admission lasting 1 minute with a rate of 200 this was NOT VT; he has RBBB at baseline hence the wide complex morphology. Has had 2 more 3 min episodes of SVT since his hip surgery, asymptomatic, broke on own appreciate Dr Nguyen's consultation. echo here with preserved EF. cont metoprolol tartrate 25mg BID with hold parameters for low BP cont telemetry monitoring postoperatively Keep electrolytes replete-give 2 g IV magnesium sulfate yet again today, continue daily KCl Follow BMP and magnesium in the morning (3) Acute blood loss anemia: Plan: hgb dropped to 9.3 from 11.1 secondary to fracture itself, some from surgery no need for transfusion follow CBC in AM (4) Paroxysmal A-fib: Plan: First diagnosed in 2020. Continue Xarelto 20 mg at bedtime Cont metoprolol. No a.fib seen on tele since admission. Echo wnl. Appreciate cardiology consult from Dr Nguyen. (5) Hypertension: Plan: post-op hypotensive, but now improving hgb slight drop by 2 grams -will continue to hold home amlodipine, lisinopril, and triamterene/HCTZ cont metoprolol BID as able to for h/o SVT. Follow BMP (6) Hyperlipidemia: Plan: Continue statin. (7) Hypothyroidism: Plan: Continue Levothyroxine. TSH 08/2021 wnl. (8) Diabetes mellitus type 2, uncontrolled: Plan: appreciate pharmacy glycemic consult & recs/management. Required insulin infusion for hyperglycemia with blood sugars in the 400s on admission BSGs improving a1c 8.5% defer management to pharmacy. Continue basal and bolus insulin and increasing doses today patient follows with Megan Caponeor - community health educator - at endo clinic. (9) Hypomagnesemia: Plan: replace IV again today Likely secondary to HCTZ use repeat mag level am (10) Mild cognitive impairment: Plan: noted try to avoid sedatives; would be at risk of hospital delirium, etc thus far he remains stable in this standpoint (11) DVT prophylaxis: Plan: SCDs resumed Xarelto post-op as ordered by orthopedic surgery Plan Disposition-continued stay on PCU Will need rehab Admission and Anticipated Discharge Date Admission Date: December 18, 2021 Subjective Pt having a lot of pain in the left hip. No BM, Cook in place. Had 3 min of SVT overnight and another 3 min of it today, asymptomatic, broke on own. Denies CP, SOB, lightheadedness. No nausea or abd pains. He is frustrated with his current situation. Tele with 2 runs of SVT as above and otherwise NSR rates normal Review of Systems Review of Systems: All systems reviewed & are unremarkable except as noted in HPI & below Physical Exam Constitutional: WD/WN, vitals as above Eyes: + anicteric sclerae Neck: trachea midline, no thyromegaly Respiratory: normal respiratory effort, lungs clear to auscultation Cardiovascular: RRR, no murmur, no edema Chest (Breasts): Chest: normal inspection of chest Gastrointestinal (Abdomen): normal bowel sounds, soft, nontender, no hepatosplenomegaly Musculoskeletal: Extremities: + extremities abnormal to inspection (Left hip with dressing in place CDI), no cyanosis and no clubbing Skin: no rashes, warm and dry Neurologic: moves all extremities and awake; no focal motor deficits Psychiatric: A+Ox3, euthymic affect Lymphatic: no lymphedema Results & Data Results & Data ([facility]) Vital Signs (Past 12 Hours) Vital Signs Temp Pulse Pulse Pulse Resp BP BP 12/22/21 11:48 75 12/22/21 11:11 36.8 C 64 17 100/69 12/22/21 08:00 75 12/22/21 07:10 36.5 C 69 17 99/65 L 12/22/21 03:00 36.8 C 61 20 106/62 Pulse Ox O2 Del Method 12/22/21 11:48 12/22/21 11:11 97 Room Air 12/22/21 08:00 12/22/21 07:10 100 Room Air 12/22/21 03:00 98 Room Air Laboratory Results 12/22/21 12/22/21 12/22/21 Range/Units 11:30 07:12 06:46 WBC (4.8-10.8) K/ul RBC (4.63-6.08) M/uL Hgb (14.0-18.0) g/dl Hct (40.1-51.0) % MCV (80.0-100.0) fL MCH (25.0-34.0) pg MCHC (32.0-36.0) g/dL RDW Std Deviation (36.4-46.3) fL RDW Coeff of Robyn (11.5-14.5) % Plt Count (130-400) K/uL MPV (9.4-12.4) fL Immature Gran % (Auto) % Neut % (Auto) % Lymph % (Auto) % Appling % (Auto) % Eos % (Auto) % Baso % (Auto) % Neut # (Auto) (1.4-6.5) K/uL Lymph # (Auto) (1.2-3.4) K/uL Appling # (Auto) (0.24-0.82) K/uL Eos # (Auto) (0-0.50) K/uL Baso # (Auto) (0-0.2) K/uL Immature Gran # (Auto) (0.00-0.02) K/uL Sodium 136 (136-145) mmol/L Potassium 3.8 (3.5-5.1) mmol/L Chloride 106 (98-107) mmol/L Carbon Dioxide 27 (21-32) mmol/L Anion Gap 3 (3-11) BUN 19 (6-23) mg/dl Creatinine 0.69 (0.6-1.4) mg/dl Est Cr Clr Drug Dosing 112.2 ml/min Est GFR ( Amer) 114.7 ml/min Est GFR (Non-Af Amer) 98.9 ml/min BUN/Creatinine Ratio 27.5 H (10-20) Glucose 204 H (70-99(Fasting)) mg/dl POC Glucose 202 H 214 H (70-99) mg/dl Calcium 7.6 L (8.5-10.1) mg/dl Magnesium 1.7 (1.7-2.4) mg/dl 12/22/21 12/21/21 12/21/21 Range/Units 06:46 20:03 16:20 WBC 5.05 (4.8-10.8) K/ul RBC 3.00 L (4.63-6.08) M/uL Hgb 9.3 L (14.0-18.0) g/dl Hct 26.3 L (40.1-51.0) % MCV 87.7 (80.0-100.0) fL MCH 31.0 (25.0-34.0) pg MCHC 35.4 (32.0-36.0) g/dL RDW Std Deviation 40.8 (36.4-46.3) fL RDW Coeff of Robyn 12.8 (11.5-14.5) % Plt Count 133 (130-400) K/uL MPV 9.4 (9.4-12.4) fL Immature Gran % (Auto) 0.4 % Neut % (Auto) 52.9 % Lymph % (Auto) 30.9 % Appling % (Auto) 10.1 % Eos % (Auto) 5.1 % Baso % (Auto) 0.6 % Neut # (Auto) 2.67 (1.4-6.5) K/uL Lymph # (Auto) 1.56 (1.2-3.4) K/uL Appling # (Auto) 0.51 (0.24-0.82) K/uL Eos # (Auto) 0.26 (0-0.50) K/uL Baso # (Auto) 0.03 (0-0.2) K/uL Immature Gran # (Auto) 0.02 (0.00-0.02) K/uL Sodium (136-145) mmol/L Potassium (3.5-5.1) mmol/L Chloride (98-107) mmol/L Carbon Dioxide (21-32) mmol/L Anion Gap (3-11) BUN (6-23) mg/dl Creatinine (0.6-1.4) mg/dl Est Cr Clr Drug Dosing ml/min Est GFR ( Amer) ml/min Est GFR (Non-Af Amer) ml/min BUN/Creatinine Ratio (10-20) Glucose (70-99(Fasting)) mg/dl POC Glucose 129 H 320 H* (70-99) mg/dl Calcium (8.5-10.1) mg/dl Magnesium (1.7-2.4) mg/dl PG Care Time/CCT Total # of Minutes Spent Total Time Spent with Patient: Total time spent is greater than 50% in coordination of care (as documented) at patient's floor/unit and/or counseling patient: Coding Level of Care Code 92514 Subseq Hosp Care Lvl 2 Diagnoses Subcapital fracture of left hip S72.012A Encounter type: initial encounter Fracture type: closed Paroxysmal SVT (supraventricular tachycardia) I47.1 Acute blood loss anemia D62 Paroxysmal A-fib I48.0 Hypertension I10 Hypertension type: unspecified Hyperlipidemia E78.5 Hypothyroidism E03.9 Diabetes mellitus type 2, uncontrolled Hypomagnesemia E83.42 Mild cognitive impairment G31.84 DVT prophylaxis Z29.9 (1) Subcapital fracture of left hip Encounter type: initial encounter Fracture type: closed Qualified Code(s): S72.012A - Unspecified intracapsular fracture of left femur, initial encounter for closed fracture (2) Hypertension Hypertension type: unspecified Qualified Code(s): I10 - Essential (primary) hypertension
--- NOTE | 2021-12-22 16:19 | Orthopedic Progress Note ---
Date of Service December 22, 2021 Assessment & Plan (1) Subcapital fracture of left hip: Plan: Postop day #2 status post left total hip arthroplasty for femoral neck fracture -I reviewed hip precautions with him again today. I think he will need frequent reeducation on hip precautions as he seems to easily forget these. -Hip abduction pillow in place whenever he is in bed. Weightbearing as tolerated on the left leg. -May discharge when stable from a medicine perspective. Follow-up in orthopedic surgery clinic with Dr. Baker 10 to 14 days after surgery. [facility] call [facility] [place] at [phone] to make an appointment. -Orthopedics will sign off at this point. Please call with questions. Admission and Anticipated Discharge Date Admission Date: December 18, 2021 Subjective Patient resting comfortably upon entering the room. He does endorse discomfort in his left hip. He states he has been up standing with therapy, but has not taken any steps yet. He denies any problems with standing. He cannot recall if they reviewed hip precautions with him. Physical Exam Physical Exam: Examination of the left hip reveals dressings clean, dry, intact. There is some mild serosanguineous drainage within the window of the Silverlon dressing. Minimal swelling of the hip and thigh area. Motor and sensory function is intact distally. Results & Data ([facility]) Vital Signs (Past 12 Hours) Vital Signs Temp Pulse Pulse Resp BP BP Pulse Ox 12/22/21 15:04 36.9 C 68 18 98/64 L 98 12/22/21 11:48 75 12/22/21 11:11 36.8 C 64 17 100/69 97 12/22/21 08:00 75 12/22/21 07:10 36.5 C 69 17 99/65 L 100 O2 Del Method 12/22/21 15:04 Room Air 12/22/21 11:48 12/22/21 11:11 Room Air 12/22/21 08:00 12/22/21 07:10 Room Air (1) Subcapital fracture of left hip Encounter type: initial encounter Fracture type: closed Qualified Code(s): S72.012A - Unspecified intracapsular fracture of left femur, initial encounter for closed fracture
[2021-12-22] MEDS: oxyCODONE HCL IR 5 MG TAB (IMMEDIATE RELEASE) PO PRN (21:31)
[2021-12-22] MEDS: ATORVASTATIN 40 MG TAB PO SCH (21:32)
[2021-12-22] MEDS: RIVAROXABAN 20 MG TAB PO SCH (21:34)
[2021-12-22] MEDS: SENNA 8.6 MG TAB PO SCH (21:34)
[2021-12-23] MEDS: LEVOTHYROXINE SODIUM 125 MCG TABLET PO SCH (05:37)
[2021-12-23] MEDS: ACETAMINOPHEN 500 MG TAB PO SCH ×3 (05:37→20:38)
[2021-12-23 06:07] LABS: Basophils # (auto) 0.03 K/uL (0-0.2); Basophils % (auto) 0.5 %; Eosinophils # (auto) 0.28 K/uL (0-0.50); Eosinophils % (auto) 5.1 %; Hematocrit (blood only) 26.4 % (40.1-51.0); Hemoglobin 9.2 g/dl (14.0-18.0); Immature Granulocytes # (auto) 0.04 K/uL (0.00-0.02); Immature Granulocytes % (auto) 0.7 %; Lymphocytes # (auto) 1.54 K/uL (1.2-3.4); Lymphocytes % (auto) 28.1 %; Mean Corpuscular Hemoglobin 30.7 pg (25.0-34.0); Mean Corpuscular Hgb Conc 34.8 g/dL (32.0-36.0); Mean Platelet Volume 9.5 fL (9.4-12.4); Monocytes # (auto) 0.67 K/uL (0.24-0.82); Monocytes % (auto) 12.2 %; Neutrophils # (auto) 2.93 K/uL (1.4-6.5); Neutrophils % (auto) 53.4 %; Platelet Count 152 K/uL (130-400); RDW Coefficient of Variation 12.7 % (11.5-14.5); RDW Standard Deviation 40.4 fL (36.4-46.3); White Blood Count 5.49 K/ul (4.8-10.8)
[2021-12-23 06:22] LABS: BUN Creatinine Ratio 27.7 (10-20); Calcium 7.9 mg/dl (8.5-10.1); Creatinine Clr Calc Pharmacy 119.1 ml/min; Est GFR (African American) 117.5 ml/min; Est GFR (Non-African American) 101.4 ml/min; Magnesium 1.7 mg/dl (1.7-2.4); Potassium 3.8 mmol/L (3.5-5.1)
[2021-12-23] MEDS: INSULIN ASPART PER UNIT SC SCH ×4 (08:09→20:24)
[2021-12-23] MEDS: MAGNESIUM SULFATE / D5W 1 GM/100 ML BAG IV SCH ×2 (08:09→10:05)
[2021-12-23] MEDS: MULTIVITAMIN TAB PO SCH (08:09)
[2021-12-23] MEDS: MAGNESIUM OXIDE 400 MG TAB PO SCH (08:10)
[2021-12-23] MEDS: NICOTINE 21 MG/24 HR TDSY TD SCH (08:10)
[2021-12-23] MEDS: DOCUSATE SODIUM 100 MG CAP PO SCH ×2 (08:10→20:35)
[2021-12-23] MEDS: METOPROLOL TARTRATE 25 MG TAB PO SCH ×2 (08:10→20:36)
[2021-12-23] MEDS: POTASSIUM CHLORIDE CRTAB 20 MEQ TABCR PO SCH (08:12)
[2021-12-23] MEDS ORDERED: LANTUS PER UNIT CHARGE SQ SCH (09:00)
[2021-12-23] MEDS: oxyCODONE HCL IR 5 MG TAB (IMMEDIATE RELEASE) PO PRN ×2 (10:08→20:38)
--- NOTE | 2021-12-23 11:07 | Pharmacy Report ---
Pharmacy Glycemic Short Note 2 - Date of Service December 23, 2021 - Glycemic Short BSG Results (Last 24 hours): 12/22/21 12/22/21 12/22/21 11:30 16:05 20:43 Glucose POC Glucose 202 H 127 H 74 12/23/21 12/23/21 12/23/21 05:30 07:18 10:57 Glucose 94 POC Glucose 96 203 H OUTPATIENT ANTIDIABETIC REGIMEN: * Lantus 15 units SC BID * Novolog //14 units TIDM, plus sliding scale with correction factor of 35 mg/dL/unit * Metformin 500 mg PO BIDM * HbA1c = 8.5% (12/06/21) ASSESSMENT: 12/23: * Significant decrease in AM fasting BSG from yesterday to today. During prolonged previous hospitalization, Lantus 15 units BID produced AM fastings that were usually good, but sometimes below goal range. Will therefore reduce to 15 units BID today, but with further dose reduction at HS x1 if BSG < 140 mg/dL. Ongoing maintenance dose likely ~15 units BID anticipated * HS BSG below goal range yesterday and dinner BSG with significant trend down as compared to previous. Will loosen CF and CR at lunch, dinner, and bedtime 12/22: * Received 77 units of insulin yesterday, 36 of which were basal. BSGs yesterday: [phone]. BSGs are still elevated today but much improved from the past to days. Fasting BSG 214 down from 283 mg/dL. Will continue with current lantus and novolog regimen for today given significant downtrend and assess need for further adjustment tomorrow. 12/21: * Received 46 units of insulin yesterday, 30 units basal + 16 units bolus. BSGs were uncontrolled: [phone] mg/dL. * Fasting BSG was 283 mg/dL. This is increased from yesterday. Therefore will increase basal by 20% today. * BSGs continue to be above goal at all hours. Will tighten Novolog today to reflect weight/stress of 3. May need loosened later this evening as patient has a tendency to stack. 12/20: * Drip was transitioned off last night, BSGs trended up overnight with fasting elevated this morning. * Will switch to 15 units BID to provide ~25% increase in basal, patient is NPO but BSGs remain elevated * Continue current novolog parameters PLAN FOR INPATIENT GLYCEMIC CONTROL: * Hold outpatient oral diabetes medication (metformin) * Basal insulin * Lantus 15 units x1 this AM. Repeat dose at HS, but reduce to 10 units if BSG < 140 mg/dL * Bolus insulin * Goal range 110-140 mg/dL * Correction factor: 20 mg/dL/unit with breakfast, 25 mg/dL/unit with lunch, dinner, bedtime * Carb ratio: 7 g CHO/unit with breakfast, 9 g CHO/unit with lunch, dinner, bedtime
[2021-12-23] MEDS: MAGNESIUM HYDROXIDE SUSP 30 ML UDC PO PRN (14:55)
--- NOTE | 2021-12-23 18:00 | Hospitalist Progress Note ---
Date of Service December 23, 2021 Assessment & Plan (1) Subcapital fracture of left hip: Plan: Mechanical after rolling out of bed during a vivid dream Now s/p left total hip arthroplasty-uncemented on 12/[address] Baker recent 25-OH vit D level on 12/06/21 was 32. -Postoperative management as per orthopedic surgery -had some post-op orthostatic hypotension which improved with bolus with 500mL LR x 1 and holding antihypertensives -Continue pain control-now he is well controlled with increased oxycodone doses- continue oxycodone 5-10mg po q6h prn pain and IV morphine for severe pain, continue tylenol scheduled -continue bowel regimen as needed-no BM yet -PT/OT consults recommend rehab -Follow CBC and BMP in the morning to assess for blood loss and monitor of renal function and electrolytes-hgb drop after surgery but stable today from yesterday -continue Xarelto for DVT prophylaxis (2) Paroxysmal SVT (supraventricular tachycardia): Plan: episode of SVT after admission lasting 1 minute with a rate of 200 this was NOT VT; he has RBBB at baseline hence the wide complex morphology. Has had several more brief episodes of SVT since his hip surgery, asymptomatic, broke on own appreciate Dr Nguyen's consultation.Not concerning echo here with preserved EF. cont metoprolol tartrate 25mg BID with hold parameters for low BP Keep electrolytes replete-give 2 g IV magnesium sulfate yet again today, continue daily KCl Follow BMP and magnesium in the morning -no need for further tele monitoring (3) Acute blood loss anemia: Plan: hgb dropped to 9.2 from 11.1 POD#1 and stable x 2 days secondary to fracture itself, some from surgery no need for transfusion follow CBC in AM (4) Paroxysmal A-fib: Plan: First diagnosed in 2020. Continue Xarelto 20 mg at bedtime Cont metoprolol. No a.fib seen on tele since admission. Echo wnl. Appreciate cardiology consult from Dr Nguyen. ok to downgrade off tele (5) Hypertension: Plan: post-op hypotensive, but now resolved hgb slight drop by 2 grams -will continue to hold home amlodipine, lisinopril, and triamterene/HCTZ cont metoprolol BID as able to for h/o SVT. Follow BMP (6) Hyperlipidemia: Plan: Continue statin. (7) Hypothyroidism: Plan: Continue Levothyroxine. TSH 08/2021 wnl. (8) Diabetes mellitus type 2, uncontrolled: Plan: appreciate pharmacy glycemic consult & recs/management. Required insulin infusion for hyperglycemia with blood sugars in the 400s on admission BSGs improving a1c 8.5% defer management to pharmacy. Continue basal and bolus insulin patient follows with Megan Chavo - in service educator - at endo clinic. (9) Hypomagnesemia: Plan: replace IV again today Likely secondary to previous HCTZ use repeat mag level am (10) Mild cognitive impairment: Plan: noted try to avoid sedatives; would be at risk of hospital delirium, etc thus far he remains stable in this standpoint (11) DVT prophylaxis: Plan: SCDs resumed Xarelto post-op as ordered by orthopedic surgery Plan Disposition-medically stable for discharge but insurance auth for [facility] still pending. CM said might not be till Sunday? Unsure if his insurance is open over weekend, will keep checking with [facility] downgrade to med/surg floor. Remove Cook in the AM Admission and Anticipated Discharge Date Admission Date: December 18, 2021 Subjective Pt feeling much better today. Pain is improved, stood with therapy. No CP or SOB. Still no BM yet. Is eating and drinking. Tele with a few very brief runs of SVT,asymptomatic, resolve on own Review of Systems Review of Systems: All systems reviewed & are unremarkable except as noted in HPI & below Physical Exam Constitutional: WD/WN, vitals as above Eyes: + anicteric sclerae Neck: trachea midline, no thyromegaly Respiratory: normal respiratory effort, lungs clear to auscultation Cardiovascular: RRR, no murmur, no edema Chest (Breasts): Chest: normal inspection of chest Gastrointestinal (Abdomen): normal bowel sounds, soft, nontender, no hepatosplenomegaly Musculoskeletal: Extremities: + extremities abnormal to inspection (Left hip with dressing in place CDI), no cyanosis and no clubbing Skin: no rashes, warm and dry Neurologic: moves all extremities and awake; no focal motor deficits Psychiatric: A+Ox3, euthymic affect Lymphatic: no lymphedema Results & Data Results & Data ([facility]) Vital Signs (Past 12 Hours) Vital Signs Temp Pulse Pulse Resp BP Pulse Ox O2 Del Method 12/23/21 14:49 68 12/23/21 15:09 36.9 C 72 17 119/81 96 Room Air 12/23/21 10:55 36.6 C 62 17 108/74 94 Room Air 12/23/21 08:00 70 12/23/21 07:16 36.8 C 76 18 108/69 96 Room Air Laboratory Results 12/23/21 12/23/21 12/23/21 Range/Units 16:14 10:57 07:18 WBC (4.8-10.8) K/ul RBC (4.63-6.08) M/uL Hgb (14.0-18.0) g/dl Hct (40.1-51.0) % MCV (80.0-100.0) fL MCH (25.0-34.0) pg MCHC (32.0-36.0) g/dL RDW Std Deviation (36.4-46.3) fL RDW Coeff of Robyn (11.5-14.5) % Plt Count (130-400) K/uL MPV (9.4-12.4) fL Immature Gran % (Auto) % Neut % (Auto) % Lymph % (Auto) % Wise % (Auto) % Eos % (Auto) % Baso % (Auto) % Neut # (Auto) (1.4-6.5) K/uL Lymph # (Auto) (1.2-3.4) K/uL Wise # (Auto) (0.24-0.82) K/uL Eos # (Auto) (0-0.50) K/uL Baso # (Auto) (0-0.2) K/uL Immature Gran # (Auto) (0.00-0.02) K/uL Sodium (136-145) mmol/L Potassium (3.5-5.1) mmol/L Chloride (98-107) mmol/L Carbon Dioxide (21-32) mmol/L Anion Gap (3-11) BUN (6-23) mg/dl Creatinine (0.6-1.4) mg/dl Est Cr Clr Drug Dosing ml/min Est GFR ( Amer) ml/min Est GFR (Non-Af Amer) ml/min BUN/Creatinine Ratio (10-20) Glucose (70-99(Fasting)) mg/dl POC Glucose 103 H 203 H 96 (70-99) mg/dl Calcium (8.5-10.1) mg/dl Magnesium (1.7-2.4) mg/dl 12/23/21 12/23/21 12/22/21 Range/Units 05:30 05:30 20:43 WBC 5.49 (4.8-10.8) K/ul RBC 3.00 L (4.63-6.08) M/uL Hgb 9.2 L (14.0-18.0) g/dl Hct 26.4 L (40.1-51.0) % MCV 88.0 (80.0-100.0) fL MCH 30.7 (25.0-34.0) pg MCHC 34.8 (32.0-36.0) g/dL RDW Std Deviation 40.4 (36.4-46.3) fL RDW Coeff of Robyn 12.7 (11.5-14.5) % Plt Count 152 (130-400) K/uL MPV 9.5 (9.4-12.4) fL Immature Gran % (Auto) 0.7 % Neut % (Auto) 53.4 % Lymph % (Auto) 28.1 % Wise % (Auto) 12.2 % Eos % (Auto) 5.1 % Baso % (Auto) 0.5 % Neut # (Auto) 2.93 (1.4-6.5) K/uL Lymph # (Auto) 1.54 (1.2-3.4) K/uL Wise # (Auto) 0.67 (0.24-0.82) K/uL Eos # (Auto) 0.28 (0-0.50) K/uL Baso # (Auto) 0.03 (0-0.2) K/uL Immature Gran # (Auto) 0.04 H (0.00-0.02) K/uL Sodium 138 (136-145) mmol/L Potassium 3.8 (3.5-5.1) mmol/L Chloride 105 (98-107) mmol/L Carbon Dioxide 27 (21-32) mmol/L Anion Gap 6 (3-11) BUN 18 (6-23) mg/dl Creatinine 0.65 (0.6-1.4) mg/dl Est Cr Clr Drug Dosing 119.1 ml/min Est GFR ( Amer) 117.5 ml/min Est GFR (Non-Af Amer) 101.4 ml/min BUN/Creatinine Ratio 27.7 H (10-20) Glucose 94 (70-99(Fasting)) mg/dl POC Glucose 74 (70-99) mg/dl Calcium 7.9 L (8.5-10.1) mg/dl Magnesium 1.7 (1.7-2.4) mg/dl PG Care Time/CCT Total # of Minutes Spent Total Time Spent with Patient: Total time spent is greater than 50% in coordination of care (as documented) at patient's floor/unit and/or counseling patient: Coding Level of Care Code 28013 Subseq Hosp Care Lvl 2 Diagnoses Subcapital fracture of left hip S72.012A Encounter type: initial encounter Fracture type: closed Paroxysmal SVT (supraventricular tachycardia) I47.1 Acute blood loss anemia D62 Paroxysmal A-fib I48.0 Hypertension I10 Hypertension type: unspecified Hyperlipidemia E78.5 Hypothyroidism E03.9 Diabetes mellitus type 2, uncontrolled Hypomagnesemia E83.42 Mild cognitive impairment G31.84 DVT prophylaxis Z29.9 (1) Subcapital fracture of left hip Encounter type: initial encounter Fracture type: closed Qualified Code(s): S72.012A - Unspecified intracapsular fracture of left femur, initial encounter for closed fracture (2) Hypertension Hypertension type: unspecified Qualified Code(s): I10 - Essential (primary) hypertension
[2021-12-23] MEDS: ATORVASTATIN 40 MG TAB PO SCH (20:35)
[2021-12-23] MEDS: RIVAROXABAN 20 MG TAB PO SCH (20:37)
[2021-12-23] MEDS: SENNA 8.6 MG TAB PO SCH (20:37)
[2021-12-23] MEDS ORDERED: LANTUS PER UNIT CHARGE SQ ONE (21:00)
[2021-12-23] MEDS: traMADol HCL 50 MG TABLET PO PRN (21:49)
[2021-12-24] MEDS: LEVOTHYROXINE SODIUM 125 MCG TABLET PO SCH (05:42)
[2021-12-24] MEDS: ACETAMINOPHEN 500 MG TAB PO SCH ×3 (05:42→21:39)
[2021-12-24 07:31] LABS: Basophils # (auto) 0.04 K/uL (0-0.2); Basophils % (auto) 0.8 %; Eosinophils # (auto) 0.21 K/uL (0-0.50); Eosinophils % (auto) 4.4 %; Hematocrit (blood only) 24.8 % (40.1-51.0); Hemoglobin 8.7 g/dl (14.0-18.0); Immature Granulocytes # (auto) 0.03 K/uL (0.00-0.02); Immature Granulocytes % (auto) 0.6 %; Lymphocytes # (auto) 1.38 K/uL (1.2-3.4); Lymphocytes % (auto) 28.8 %; Mean Corpuscular Hemoglobin 31.2 pg (25.0-34.0); Mean Corpuscular Hgb Conc 35.1 g/dL (32.0-36.0); Mean Corpuscular Volume 88.9 fL (80.0-100.0); Mean Platelet Volume 9.3 fL (9.4-12.4); Monocytes % (auto) 12.5 %; Neutrophils # (auto) 2.53 K/uL (1.4-6.5); Neutrophils % (auto) 52.9 %; Platelet Count 170 K/uL (130-400); RDW Coefficient of Variation 12.8 % (11.5-14.5); RDW Standard Deviation 41.7 fL (36.4-46.3); Red Blood Count 2.79 M/uL (4.63-6.08); White Blood Count 4.79 K/ul (4.8-10.8)
[2021-12-24 07:49] LABS: Calcium 7.9 mg/dl (8.5-10.1); Creatinine Clr Calc Pharmacy 113.8 ml/min; Est GFR (African American) 115.3 ml/min; Est GFR (Non-African American) 99.5 ml/min; Magnesium 1.8 mg/dl (1.7-2.4); Potassium 4.2 mmol/L (3.5-5.1)
[2021-12-24] MEDS: INSULIN ASPART PER UNIT SC SCH ×4 (09:19→20:16)
[2021-12-24] MEDS: LANTUS PER UNIT CHARGE SQ SCH ×2 (09:24→20:16)
[2021-12-24] MEDS: DOCUSATE SODIUM 100 MG CAP PO SCH ×2 (09:26→20:08)
[2021-12-24] MEDS: MULTIVITAMIN TAB PO SCH (09:26)
[2021-12-24] MEDS: METOPROLOL TARTRATE 25 MG TAB PO SCH ×2 (09:27→20:08)
[2021-12-24] MEDS: NICOTINE 21 MG/24 HR TDSY TD SCH (09:27)
[2021-12-24] MEDS: MAGNESIUM OXIDE 400 MG TAB PO SCH (09:27)
[2021-12-24] MEDS: POTASSIUM CHLORIDE CRTAB 20 MEQ TABCR PO SCH (09:32)
[2021-12-24] MEDS ORDERED: MAGNESIUM SULFATE / D5W 1 GM/100 ML BAG IV ONE (10:43)
[2021-12-24] MEDS ORDERED: TAMSULOSIN HCL 0.4 MG CAP PO ONE (11:46)
--- NOTE | 2021-12-24 11:46 | Hospitalist Progress Note ---
Date of Service December 24, 2021 Assessment & Plan (1) Subcapital fracture of left hip: Plan: Mechanical after rolling out of bed during a vivid dream Now s/p left total hip arthroplasty-uncemented on 12/[address] Baker recent 25-OH vit D level on 12/06/21 was 32. -Postoperative management as per orthopedic surgery -had some post-op orthostatic hypotension which improved with bolus with 500mL LR x 1 and holding antihypertensives -Continue pain control-now he is well controlled with increased oxycodone doses- continue oxycodone 5-10mg po q6h prn pain and IV morphine for severe pain, continue tylenol scheduled. Advised to take pain meds prior to PT -continue bowel regimen as needed-no BM yet-make Miralax bid scheduled, give a dose of MOM now -PT/OT consults recommend rehab -hgb dropped to 8.7, no transfusion needed, HD stable -continue Xarelto for DVT prophylaxis (2) Paroxysmal SVT (supraventricular tachycardia): Plan: episode of SVT after admission lasting 1 minute with a rate of 200 this was NOT VT; he has RBBB at baseline hence the wide complex morphology. Has had several more brief episodes of SVT since his hip surgery, asymptomatic, broke on own appreciate Dr Nguyen's consultation.Not concerning echo here with preserved EF. cont metoprolol tartrate 25mg BID with hold parameters for low BP Keep electrolytes replete-give 1 g IV magnesium sulfate today, continue daily KCl Follow BMP and magnesium in the morning -no need for further tele monitoring-transferred off tele 12/23 (3) Urinary retention: Plan: retaining urine since dc of Cook bladder scan qs and straight cath for pVR>400mL-d/w nursing start Flomax try to minimize opioids but he is having quite a bit of pain (4) Acute blood loss anemia: Plan: hgb dropped to 8.7 from 11.1 POD#1--> this represents a slight drop since yesterday but no evidence of bleeding from anywhere, no hematoma at surgical site secondary to fracture itself, some from surgery no need for transfusion follow CBC in AM (5) Paroxysmal A-fib: Plan: First diagnosed in 2020. Continue Xarelto 20 mg at bedtime Cont metoprolol. No a.fib seen on tele since admission. Echo wnl. Appreciate cardiology consult from Dr Nguyen. have since downgraded off tele (6) Hypertension: Plan: post-op hypotensive, but now resolved hgb drop as above -will continue to hold home amlodipine, lisinopril, and triamterene/HCTZ cont metoprolol BID as able to for h/o SVT. Follow BMP (7) Hyperlipidemia: Plan: Continue statin. (8) Hypothyroidism: Plan: Continue Levothyroxine. TSH 08/2021 wnl. (9) Diabetes mellitus type 2, uncontrolled: Plan: appreciate pharmacy glycemic consult & recs/management. Required insulin infusion for hyperglycemia with blood sugars in the 400s on admission BSGs improving a1c 8.5% defer management to pharmacy. Continue basal and bolus insulin patient follows with Megan Tony - optical mechanic apprentice - at endo clinic. (10) Hypomagnesemia: Plan: replace IV again today but is improving Likely secondary to previous HCTZ use repeat mag level am (11) Mild cognitive impairment: Plan: noted try to avoid sedatives; would be at risk of hospital delirium, etc thus far he remains stable in this standpoint (12) DVT prophylaxis: Plan: SCDs resumed Xarelto post-op as ordered by orthopedic surgery Plan Disposition-medically stable for discharge but insurance auth for [facility] still pending. CM said might not be till Sunday? Unsure if his insurance is open over weekend, will keep checking with [facility] downgrade to med/surg floor. Remove Cook in the AM Admission and Anticipated Discharge Date Admission Date: December 18, 2021 Subjective Pt having a lot of left hip pain as he just worked with PT. Asking for pain meds, says "I'm a wimp." Is frustrated with his situation. Has not voided yet today, bladder scan 470mL and will straight cath. Has not moved bowels since admission either Review of Systems Review of Systems: All systems reviewed & are unremarkable except as noted in HPI & below Physical Exam Constitutional: WD/WN, vitals as above Eyes: + anicteric sclerae Neck: trachea midline, no thyromegaly Respiratory: normal respiratory effort, lungs clear to auscultation Cardiovascular: RRR, no murmur, no edema Chest (Breasts): Chest: normal inspection of chest Gastrointestinal (Abdomen): normal bowel sounds, soft, nontender, no hepatosplenomegaly Musculoskeletal: Extremities: + extremities abnormal to inspection (Left hip with dressing in place CDI), no cyanosis and no clubbing Skin: no rashes, warm and dry Neurologic: moves all extremities and awake; no focal motor deficits Psychiatric: A+Ox3, euthymic affect Lymphatic: no lymphedema Results & Data Results & Data ([facility]) Vital Signs (Past 12 Hours) Vital Signs Temp Pulse Resp BP Pulse Ox O2 Del Method 12/24/21 07:12 36.7 C 65 18 122/79 94 Room Air Laboratory Results 12/24/21 12/24/21 12/24/21 Range/Units 08:35 06:57 06:57 WBC 4.79 L (4.8-10.8) K/ul RBC 2.79 L (4.63-6.08) M/uL Hgb 8.7 L (14.0-18.0) g/dl Hct 24.8 L (40.1-51.0) % MCV 88.9 (80.0-100.0) fL MCH 31.2 (25.0-34.0) pg MCHC 35.1 (32.0-36.0) g/dL RDW Std Deviation 41.7 (36.4-46.3) fL RDW Coeff of Robyn 12.8 (11.5-14.5) % Plt Count 170 (130-400) K/uL MPV 9.3 L (9.4-12.4) fL Immature Gran % (Auto) 0.6 % Neut % (Auto) 52.9 % Lymph % (Auto) 28.8 % Davison % (Auto) 12.5 % Eos % (Auto) 4.4 % Baso % (Auto) 0.8 % Neut # (Auto) 2.53 (1.4-6.5) K/uL Lymph # (Auto) 1.38 (1.2-3.4) K/uL Davison # (Auto) 0.60 (0.24-0.82) K/uL Eos # (Auto) 0.21 (0-0.50) K/uL Baso # (Auto) 0.04 (0-0.2) K/uL Immature Gran # (Auto) 0.03 H (0.00-0.02) K/uL Sodium 136 (136-145) mmol/L Potassium 4.2 (3.5-5.1) mmol/L Chloride 105 (98-107) mmol/L Carbon Dioxide 28 (21-32) mmol/L Anion Gap 3 (3-11) BUN 17 (6-23) mg/dl Creatinine 0.68 (0.6-1.4) mg/dl Est Cr Clr Drug Dosing 113.8 ml/min Est GFR ( Amer) 115.3 ml/min Est GFR (Non-Af Amer) 99.5 ml/min BUN/Creatinine Ratio 25.0 H (10-20) Glucose 148 H (70-99(Fasting)) mg/dl POC Glucose 154 H (70-99) mg/dl Calcium 7.9 L (8.5-10.1) mg/dl Magnesium 1.8 (1.7-2.4) mg/dl 12/23/21 12/23/21 Range/Units 20:09 16:14 WBC (4.8-10.8) K/ul RBC (4.63-6.08) M/uL Hgb (14.0-18.0) g/dl Hct (40.1-51.0) % MCV (80.0-100.0) fL MCH (25.0-34.0) pg MCHC (32.0-36.0) g/dL RDW Std Deviation (36.4-46.3) fL RDW Coeff of Robyn (11.5-14.5) % Plt Count (130-400) K/uL MPV (9.4-12.4) fL Immature Gran % (Auto) % Neut % (Auto) % Lymph % (Auto) % Davison % (Auto) % Eos % (Auto) % Baso % (Auto) % Neut # (Auto) (1.4-6.5) K/uL Lymph # (Auto) (1.2-3.4) K/uL Davison # (Auto) (0.24-0.82) K/uL Eos # (Auto) (0-0.50) K/uL Baso # (Auto) (0-0.2) K/uL Immature Gran # (Auto) (0.00-0.02) K/uL Sodium (136-145) mmol/L Potassium (3.5-5.1) mmol/L Chloride (98-107) mmol/L Carbon Dioxide (21-32) mmol/L Anion Gap (3-11) BUN (6-23) mg/dl Creatinine (0.6-1.4) mg/dl Est Cr Clr Drug Dosing ml/min Est GFR ( Amer) ml/min Est GFR (Non-Af Amer) ml/min BUN/Creatinine Ratio (10-20) Glucose (70-99(Fasting)) mg/dl POC Glucose 117 H 103 H (70-99) mg/dl Calcium (8.5-10.1) mg/dl Magnesium (1.7-2.4) mg/dl PG Care Time/CCT Total # of Minutes Spent Total Time Spent with Patient: Total time spent is greater than 50% in coordination of care (as documented) at patient's floor/unit and/or counseling patient: Coding Level of Care Code 02467 Subseq Hosp Care Lvl 2 Diagnoses Subcapital fracture of left hip S72.012A Encounter type: initial encounter Fracture type: closed Paroxysmal SVT (supraventricular tachycardia) I47.1 Urinary retention R33.9 Acute blood loss anemia D62 Paroxysmal A-fib I48.0 Hypertension I10 Hypertension type: unspecified Hyperlipidemia E78.5 Hypothyroidism E03.9 Diabetes mellitus type 2, uncontrolled Hypomagnesemia E83.42 Mild cognitive impairment G31.84 DVT prophylaxis Z29.9 (1) Subcapital fracture of left hip Encounter type: initial encounter Fracture type: closed Qualified Code(s): S72.012A - Unspecified intracapsular fracture of left femur, initial encounter for closed fracture (2) Hypertension Hypertension type: unspecified Qualified Code(s): I10 - Essential (primary) hypertension
[2021-12-24] MEDS: oxyCODONE HCL IR 5 MG TAB (IMMEDIATE RELEASE) PO PRN ×2 (12:19→20:09)
[2021-12-24] MEDS: POLYETHYLENE (MIRALAX) 17 GM PACK PO SCH ×2 (13:16→20:10)
[2021-12-24] MEDS: traMADol HCL 50 MG TABLET PO PRN (16:40)
[2021-12-24] MEDS: MAGNESIUM HYDROXIDE SUSP 30 ML UDC PO PRN (18:27)
[2021-12-24] MEDS: ATORVASTATIN 40 MG TAB PO SCH (20:08)
[2021-12-24] MEDS: RIVAROXABAN 20 MG TAB PO SCH (20:08)
[2021-12-24] MEDS: SENNA 8.6 MG TAB PO SCH (20:08)
[2021-12-25] MEDS: oxyCODONE HCL IR 5 MG TAB (IMMEDIATE RELEASE) PO PRN ×3 (04:32→17:55)
[2021-12-25] MEDS: ACETAMINOPHEN 500 MG TAB PO SCH ×3 (05:44→21:56)
[2021-12-25] MEDS: LEVOTHYROXINE SODIUM 125 MCG TABLET PO SCH (05:44)
[2021-12-25 07:57] LABS: Basophils # (auto) 0.04 K/uL (0-0.2); Basophils % (auto) 0.7 %; Eosinophils # (auto) 0.11 K/uL (0-0.50); Hematocrit (blood only) 25.3 % (40.1-51.0); Hemoglobin 8.8 g/dl (14.0-18.0); Immature Granulocytes # (auto) 0.08 K/uL (0.00-0.02); Immature Granulocytes % (auto) 1.5 %; Lymphocytes # (auto) 1.04 K/uL (1.2-3.4); Mean Corpuscular Hemoglobin 30.8 pg (25.0-34.0); Mean Corpuscular Hgb Conc 34.8 g/dL (32.0-36.0); Mean Corpuscular Volume 88.5 fL (80.0-100.0); Monocytes # (auto) 0.68 K/uL (0.24-0.82); Monocytes % (auto) 12.4 %; Neutrophils # (auto) 3.52 K/uL (1.4-6.5); Neutrophils % (auto) 64.4 %; Platelet Count 204 K/uL (130-400); RDW Coefficient of Variation 12.7 % (11.5-14.5); RDW Standard Deviation 40.6 fL (36.4-46.3); Red Blood Count 2.86 M/uL (4.63-6.08); White Blood Count 5.47 K/ul (4.8-10.8)
[2021-12-25] MEDS: NICOTINE 21 MG/24 HR TDSY TD SCH (08:22)
[2021-12-25] MEDS: METOPROLOL TARTRATE 25 MG TAB PO SCH ×2 (08:24→20:27)
[2021-12-25] MEDS: MAGNESIUM OXIDE 400 MG TAB PO SCH ×2 (08:24→20:27)
[2021-12-25 08:25] LABS: BUN Creatinine Ratio 28.4 (10-20); Calcium 8.4 mg/dl (8.5-10.1); Creatinine Clr Calc Pharmacy 115.5 ml/min; Est GFR (Non-African American) 100.1 ml/min; Magnesium 1.8 mg/dl (1.7-2.4); Potassium 4.5 mmol/L (3.5-5.1)
[2021-12-25] MEDS: LANTUS PER UNIT CHARGE SQ SCH (08:25)
[2021-12-25] MEDS: POLYETHYLENE (MIRALAX) 17 GM PACK PO SCH ×3 (08:26→20:26)
[2021-12-25] MEDS: MULTIVITAMIN TAB PO SCH (08:26)
[2021-12-25] MEDS: POTASSIUM CHLORIDE CRTAB 20 MEQ TABCR PO SCH (08:29)
[2021-12-25] MEDS: DOCUSATE SODIUM 100 MG CAP PO SCH ×2 (08:30→20:26)
[2021-12-25] MEDS: INSULIN ASPART PER UNIT SC SCH ×4 (09:35→20:46)
[2021-12-25] MEDS ORDERED: MAGNESIUM SULFATE / D5W 1 GM/100 ML BAG IV ONE (10:15)
[2021-12-25] MEDS: traMADol HCL 50 MG TABLET PO PRN (13:50)
--- NOTE | 2021-12-25 13:50 | Pharmacy Report ---
Pharmacy Glycemic Short Note 2 - Date of Service December 25, 2021 - Glycemic Short BSG Results (Last 24 hours): 12/24/21 12/24/21 12/25/21 17:13 20:04 07:16 Glucose 224 H POC Glucose 98 81 12/25/21 12/25/21 08:17 12:16 Glucose POC Glucose 238 H 289 H OUTPATIENT ANTIDIABETIC REGIMEN: * Lantus 15 units SC BID * Novolog 03/12/13 units TIDM, plus sliding scale with correction factor of 35 mg/dL/unit * Metformin 500 mg PO BIDM * HbA1c = 8.5% (12/06/21) ASSESSMENT: 12/25: * Received total 43 units of insulin yesterday; 25 units basal and 18 units bolus. * Fasting BSG today was 224 mg/dl and compared to last couple of days, it is significantly elevated. HS Lantus dose increased slightly tonight. * BSGs yesterday [phone] mg/dl. * Novolog parameters continued the same at breakfast but loosened for lunch, dinner and HS to prevent hypoglycemia in the evening. 12/23: * Significant decrease in AM fasting BSG from yesterday to today. During prolonged previous hospitalization, Lantus 15 units BID produced AM fastings that were usually good, but sometimes below goal range. Will therefore reduce to 15 units BID today, but with further dose reduction at HS x1 if BSG < 140 mg/dL. Ongoing maintenance dose likely ~15 units BID anticipated * HS BSG below goal range yesterday and dinner BSG with significant trend down as compared to previous. Will loosen CF and CR at lunch, dinner, and bedtime 12/22: * Received 77 units of insulin yesterday, 36 of which were basal. BSGs yesterday: [phone]. BSGs are still elevated today but much improved from the past to days. Fasting BSG 214 down from 283 mg/dL. Will continue with current lantus and novolog regimen for today given significant downtrend and assess need for further adjustment tomorrow. 12/21: * Received 46 units of insulin yesterday, 30 units basal + 16 units bolus. BSGs were uncontrolled: [phone] mg/dL. * Fasting BSG was 283 mg/dL. This is increased from yesterday. Therefore will increase basal by 20% today. * BSGs continue to be above goal at all hours. Will tighten Novolog today to reflect weight/stress of 3. May need loosened later this evening as patient has a tendency to stack. 12/20: * Drip was transitioned off last night, BSGs trended up overnight with fasting elevated this morning. * Will switch to 15 units BID to provide ~25% increase in basal, patient is NPO but BSGs remain elevated * Continue current novolog parameters PLAN FOR INPATIENT GLYCEMIC CONTROL: * Hold outpatient oral diabetes medication (metformin) * Basal insulin * Lantus 15 units SQ BID * Bolus insulin * Goal range 110-140 mg/dL * Correction factor: 20 mg/dL/unit with breakfast, 35 mg/dL/unit with lunch, dinner, bedtime * Carb ratio: 7 g CHO/unit with breakfast, 10 g CHO/unit with lunch, dinner, bedtime
--- NOTE | 2021-12-25 17:17 | Hospitalist Progress Note ---
Date of Service December 25, 2021 Assessment & Plan (1) Subcapital fracture of left hip: Plan: Mechanical after rolling out of bed during a vivid dream Now s/p left total hip arthroplasty-uncemented on 12/[address] Baker recent 25-OH vit D level on 12/06/21 was 32. -Postoperative management as per orthopedic surgery -had some post-op orthostatic hypotension which improved with bolus with 500mL LR x 1 and holding antihypertensives -Continue pain control-now he is well controlled with increased oxycodone doses- continue oxycodone 5-10mg po q6h prn pain and no longer needing IV morphine for severe pain, continue tylenol scheduled. Advised to take pain meds prior to PT. Tramadol prn -continue bowel regimen as needed-no BM yet in 7 days--> increase Miralax to qid, continue senna 17.2mg hs, docusate bid, MOM prn (give dose now), and bisacodyl [place] as needed -PT/OT consults recommend rehab -hgb dropped to 8.8, stable x 3 days, no transfusion needed, HD stable, no evidence of bleeding -continue Xarelto for DVT prophylaxis (2) Paroxysmal SVT (supraventricular tachycardia): Plan: episode of SVT after admission lasting 1 minute with a rate of 200 this was NOT VT; he has RBBB at baseline hence the wide complex morphology. Has had several more brief episodes of SVT since his hip surgery, asymptomatic, broke on own appreciate Dr Nguyen's consultation.Not concerning echo here with preserved EF. cont metoprolol tartrate 25mg BID with hold parameters for low BP Keep electrolytes replete-give 1 g IV magnesium sulfate today, continue daily KCl, increase po mag to 400mg po bid -no need for further tele monitoring-transferred off tele 12/23 (3) Urinary retention: Plan: retaining urine since dc of Cook-now resolved bladder scan qs and straight cath for pVR>400mL-d/w nursing started Flomax try to minimize opioids as this is contributing to both constipation and urine retention (4) Acute blood loss anemia: Plan: hgb dropped to 8.7 from 11.1 POD#1-stable today at 89.8 for third day in a row - no evidence of bleeding from anywhere, no hematoma at surgical site secondary to fracture itself, some from surgery no need for transfusion (5) Paroxysmal A-fib: Plan: First diagnosed in 2020. Continue Xarelto 20 mg at bedtime Cont metoprolol. No a.fib seen on tele since admission. Echo wnl. Appreciate cardiology consult from Dr Nguyen. have since downgraded off tele (6) Hypertension: Plan: post-op hypotensive, but now resolved hgb drop as above -will continue to hold home amlodipine, lisinopril, and triamterene/HCTZ-may not be able to restart these until 1-2 weeks from now cont metoprolol BID as able to for h/o SVT. (7) Hyperlipidemia: Plan: Continue statin. (8) Hypothyroidism: Plan: Continue Levothyroxine. TSH 08/2021 wnl. (9) Diabetes mellitus type 2, uncontrolled: Plan: appreciate pharmacy glycemic consult & recs/management. Required insulin infusion for hyperglycemia with blood sugars in the 400s on admission BSGs improving but continues to have some hyperglycemia a1c 8.5% defer management to pharmacy. Continue basal and bolus insulin patient follows with Megan Tony - hi lift operator - at endo clinic. (10) Hypomagnesemia: Plan: is normal range now but want to optimize to 2.0 due to SVT, h/o afib replace IV again today but is improving increased po mag to 400mg bid Likely secondary to previous HCTZ use (11) Mild cognitive impairment: Plan: noted try to avoid sedatives; would be at risk of hospital delirium, etc thus far he remains stable in this standpoint (12) DVT prophylaxis: Plan: SCDs, Xarelto Plan Disposition-medically stable for discharge but insurance auth for [facility] still pending. Admission and Anticipated Discharge Date Admission Date: December 18, 2021 Subjective Was OOB to chair today. Denies CP, SOB, lightheadedness,abd pain. Still no BM since admission. Pain in hip is controlled but requiring multiple medications to do so. Review of Systems Review of Systems: All systems reviewed & are unremarkable except as noted in HPI & below Physical Exam Constitutional: WD/WN, vitals as above Eyes: + anicteric sclerae Neck: trachea midline, no thyromegaly Respiratory: normal respiratory effort, lungs clear to auscultation Cardiovascular: RRR, no murmur, no edema Chest (Breasts): Chest: normal inspection of chest Gastrointestinal (Abdomen): normal bowel sounds, soft, nontender, no hepatosplenomegaly Musculoskeletal: Extremities: + extremities abnormal to inspection (Left hip with dressing in place CDI), no cyanosis and no clubbing Skin: no rashes, warm and dry Neurologic: moves all extremities and awake; no focal motor deficits Psychiatric: A+Ox3, euthymic affect Lymphatic: no lymphedema Results & Data Results & Data ([facility]) Vital Signs (Past 12 Hours) Vital Signs Temp Pulse Resp BP Pulse Ox O2 Del Method 12/25/21 08:30 Room Air 12/25/21 08:14 36.5 C 65 18 115/72 95 Room Air PG Care Time/CCT Total # of Minutes Spent Total Time Spent with Patient: Total time spent is greater than 50% in coordination of care (as documented) at patient's floor/unit and/or counseling patient: Coding Level of Care Code 46714 Subseq Hosp Care Lvl 2 Diagnoses Subcapital fracture of left hip S72.012A Encounter type: initial encounter Fracture type: closed Paroxysmal SVT (supraventricular tachycardia) I47.1 Urinary retention R33.9 Acute blood loss anemia D62 Paroxysmal A-fib I48.0 Hypertension I10 Hypertension type: unspecified Hyperlipidemia E78.5 Hypothyroidism E03.9 Diabetes mellitus type 2, uncontrolled Hypomagnesemia E83.42 Mild cognitive impairment G31.84 DVT prophylaxis Z29.9 (1) Subcapital fracture of left hip Encounter type: initial encounter Fracture type: closed Qualified Code(s): S72.012A - Unspecified intracapsular fracture of left femur, initial encounter for closed fracture (2) Hypertension Hypertension type: unspecified Qualified Code(s): I10 - Essential (primary) hypertension
[2021-12-25] MEDS: MAGNESIUM HYDROXIDE SUSP 30 ML UDC PO PRN (17:55)
[2021-12-25] MEDS: RIVAROXABAN 20 MG TAB PO SCH (20:27)
[2021-12-25] MEDS: SENNA 8.6 MG TAB PO SCH (20:27)
[2021-12-25] MEDS: TAMSULOSIN HCL 0.4 MG CAP PO SCH (20:28)
[2021-12-25] MEDS: ATORVASTATIN 40 MG TAB PO SCH (20:28)
[2021-12-25] MEDS ORDERED: LANTUS PER UNIT CHARGE SQ SCH (21:00)
[2021-12-26] MEDS: ACETAMINOPHEN 500 MG TAB PO SCH ×3 (06:24→21:04)
[2021-12-26] MEDS: traMADol HCL 50 MG TABLET PO PRN ×2 (06:24→23:29)
[2021-12-26] MEDS: LEVOTHYROXINE SODIUM 125 MCG TABLET PO SCH (06:25)
[2021-12-26] MEDS ORDERED: LANTUS PER UNIT CHARGE SQ SCH (09:00)
[2021-12-26] MEDS: INSULIN ASPART PER UNIT SC SCH ×3 (09:05→17:33)
[2021-12-26] MEDS: POTASSIUM CHLORIDE CRTAB 20 MEQ TABCR PO SCH (09:06)
[2021-12-26] MEDS: METOPROLOL TARTRATE 25 MG TAB PO SCH ×2 (09:06→20:00)
[2021-12-26] MEDS: MULTIVITAMIN TAB PO SCH (09:06)
[2021-12-26] MEDS: DOCUSATE SODIUM 100 MG CAP PO SCH ×2 (09:06→21:02)
[2021-12-26] MEDS: MAGNESIUM OXIDE 400 MG TAB PO SCH ×2 (09:08→21:01)
[2021-12-26] MEDS: POLYETHYLENE (MIRALAX) 17 GM PACK PO SCH ×2 (09:08→13:42)
[2021-12-26] MEDS: NICOTINE 21 MG/24 HR TDSY TD SCH (09:08)
[2021-12-26] MEDS: oxyCODONE HCL IR 5 MG TAB (IMMEDIATE RELEASE) PO PRN (09:14)
[2021-12-26 11:14] LABS: Basophils # (auto) 0.05 K/uL (0-0.2); Basophils % (auto) 0.7 %; Eosinophils # (auto) 0.16 K/uL (0-0.50); Eosinophils % (auto) 2.2 %; Hematocrit (blood only) 30.1 % (40.1-51.0); Hemoglobin 10.3 g/dl (14.0-18.0); Immature Granulocytes # (auto) 0.04 K/uL (0.00-0.02); Immature Granulocytes % (auto) 0.5 %; Lymphocytes # (auto) 1.95 K/uL (1.2-3.4); Lymphocytes % (auto) 26.4 %; Mean Corpuscular Hemoglobin 30.8 pg (25.0-34.0); Mean Corpuscular Hgb Conc 34.2 g/dL (32.0-36.0); Mean Corpuscular Volume 90.1 fL (80.0-100.0); Mean Platelet Volume 8.7 fL (9.4-12.4); Monocytes # (auto) 0.67 K/uL (0.24-0.82); Monocytes % (auto) 9.1 %; Neutrophils # (auto) 4.51 K/uL (1.4-6.5); Neutrophils % (auto) 61.1 %; Platelet Count 296 K/uL (130-400); RDW Coefficient of Variation 13.1 % (11.5-14.5); RDW Standard Deviation 42.2 fL (36.4-46.3); Red Blood Count 3.34 M/uL (4.63-6.08); White Blood Count 7.38 K/ul (4.8-10.8)
[2021-12-26] MEDS ORDERED: SODIUM CHLORIDE 0.9% 1000ML 1,000 ML IV ONE (12:41)
[2021-12-26] MEDS ORDERED: fentaNYL citrate 100 MCG/2 ML VIAL IV PRN (12:52)
--- NOTE | 2021-12-26 12:55 | Pharmacy Report ---
Pharmacy Glycemic Short Note 2 - Date of Service December 26, 2021 - Glycemic Short BSG Results (Last 24 hours): 12/25/21 12/25/21 12/26/21 17:05 20:40 08:26 POC Glucose 192 H 171 H 268 H 12/26/21 12:24 POC Glucose 212 H OUTPATIENT ANTIDIABETIC REGIMEN: * Lantus 15 units SC BID * Novolog 03/12/13 units TIDM, plus sliding scale with correction factor of 35 mg/dL/unit * Metformin 500 mg PO BIDM * HbA1c = 8.5% (12/06/21) ASSESSMENT: 12/26: * BSGs elevated yesterday, 171-289 mg/dL * Assuming hyperglycemia is related to inadequate basal insulin as it had been decreased a couple of days ago. Initially planned to increase basal today, but now patient with vomiting and severe abdominal pain likely related to constipation. He has been made NPO, so will decrease basal insulin today. 12/25: * Received total 43 units of insulin yesterday; 25 units basal and 18 units bolus. * Fasting BSG today was 224 mg/dl and compared to last couple of days, it is significantly elevated. HS Lantus dose increased slightly tonight. * BSGs yesterday [phone] mg/dl. * Novolog parameters continued the same at breakfast but loosened for lunch, dinner and HS to prevent hypoglycemia in the evening. Background: * 66 yo M with T2DM admitted with a hip fracture on 12/18 and found to be profoundly hyperglycemic. History notable both for diabetic coma last year and also history of severe lows when on an insulin drip prior, per discussion with Josie Stephens (who obtained this information from a friend of the patient). Discussed risks/benefits of insulin drip given elevated anion gap - plan to initiate insulin drip with DKA protocol which includes reflex dextrose in IV once BSG's in goal range. Plan is to continue drip with dextrose containing fluids until tomorrow AM, when patient can hopefully be transitioned safely off of the drip. PLAN FOR INPATIENT GLYCEMIC CONTROL: * Hold outpatient oral diabetes medication (metformin) * Basal insulin * Lantus 18 units SC qAM, 0-10 units SC HS (see EHR for details) * Bolus insulin * Goal range 110-140 mg/dL * Correction factor: 20 mg/dL/unit with breakfast, 30 mg/dL/unit with lunch, dinner, bedtime * Carb ratio: 7 g CHO/unit with breakfast, 9 g CHO/unit with lunch, dinner, bedtime
--- NOTE | 2021-12-26 13:01 | Hospitalist Progress Note ---
Date of Service December 26, 2021 Assessment & Plan (1) Hypotension: Plan: On midday of 12/26, patient developed acute hypotension with a blood pressure in the 60s over 40s while sitting in a chair. He developed a small amount of emesis and then complained of severe lower abdominal pain that went away after passing a large amount of flatus. His blood pressures improved with lying him flat and giving IV fluid bolus. Hemoglobin stable from previous, no evidence of renal failure or elevated lactate, no leukocytosis No fever Suspect vasovagal reaction causing hypotension in response to significant abdominal pain from severe constipation/ileus -Continue to hold all home blood pressure meds except for metoprolol with hold parameters due to history of paroxysmal SVT -Treat constipation/ ileus as below -Transferred back to PCU for closer monitoring (2) Subcapital fracture of left hip: Plan: Mechanical after rolling out of bed during a vivid dream Now s/p left total hip arthroplasty-uncemented on 12/[address] Baker recent 25-OH vit D level on 12/06/21 was 32. -Postoperative management as per orthopedic surgery -had some post-op orthostatic hypotension which improved with bolus with 500mL LR x 1 and holding antihypertensives -Continue pain control-requiring large amounts of opioids for pain control which is worsening his constipation unfortunately -Continue oxycodone, tylenol scheduled, added IV fentanyl in case of severe pain in the setting of soft blood pressures -continue bowel regimen as needed-no BM yet in 8 days despite Miralax qid, senna 17.2mg hs, docusate bid, MOM prn , and bisacodyl MT x 2--> add fleets enema x1 now -PT/OT consults recommend rehab -hgb dropped to 8.8-9, stable x 4 days-does have evidence of some intramuscular hematoma on CT abdomen/pelvis on 12/26 -continue Xarelto for DVT prophylaxis (3) Constipation: Plan: As above With vasovagal episode secondary to fecal impaction and severe constipation/ileus CT abdomen/pelvis on 12/26 showed a significant amount of stool and constipation with some possible transition points and a redundant sigmoid colon but no definite volvulus Continue to work on aggressive bowel regimen as above-multiple medications on board but will now hold MiraLAX 4 times daily given vomiting and ileus Add fleets enema Keep n.p.o. until moving bowels Start IV fluids maintenance (4) Paroxysmal SVT (supraventricular tachycardia): Plan: episode of SVT after admission lasting 1 minute with a rate of 200 this was NOT VT; he has RBBB at baseline hence the wide complex morphology. Has had several more brief episodes of SVT since his hip surgery, asymptomatic, broke on own appreciate Dr Nguyen's consultation.Not concerning echo here with preserved EF. cont metoprolol tartrate 25mg BID with hold parameters for low BP Keep electrolytes replete-give 1 g IV magnesium sulfate today, continue daily KCl, increase po mag to 400mg po bid -no need for further tele monitoring-transferred off tele 12/23 (5) Urinary retention: Plan: retained urine after dc of Cook-now resolved bladder scan qs and straight cath for pVR>400mL-d/w nursing started Flomax try to minimize opioids as this is contributing to both constipation and urine retention (6) Acute blood loss anemia: Plan: hgb dropped to 8.7 from 11.1 POD#1-stable today again at 9 for 4 days in a row - no evidence of bleeding from anywhere, no hematoma at surgical site, but small hematoma evident on CT abdomen/pelvis secondary to fracture itself, some from surgery no need for transfusion (7) Paroxysmal A-fib: Plan: First diagnosed in 2020. Continue Xarelto 20 mg at bedtime Cont metoprolol. No a.fib seen on tele since admission. Echo wnl. Appreciate cardiology consult from Dr Nguyen. Was downgraded off telemetry for several days but moved back to telemetry on 12/26 after hypotensive episode (8) Hypertension: Plan: With hypotension as above -will continue to hold home amlodipine, lisinopril, and triamterene/HCTZ-may not be able to restart these until 1-2 weeks from now cont metoprolol BID as able to for h/o SVT. (9) Hyperlipidemia: Plan: Continue statin. (10) Hypothyroidism: Plan: Continue Levothyroxine. TSH 08/2021 wnl. (11) Diabetes mellitus type 2, uncontrolled: Plan: appreciate pharmacy glycemic consult & recs/management. Required insulin infusion for hyperglycemia with blood sugars in the 400s on admission BSGs improving but continues to have some hyperglycemia a1c 8.5% defer management to pharmacy. Continue basal and bolus insulin patient follows with Megan Caponeor - ship/rec/doc control - at [facility]. (12) Hypomagnesemia: Plan: is normal range now but want to optimize to 2.0 due to SVT, h/o afib replace IV again today but is improving increased po mag to 400mg bid Likely secondary to previous HCTZ use Follow level in the morning (13) Mild cognitive impairment: Plan: noted try to avoid sedatives; would be at risk of hospital delirium, etc thus far he remains stable in this standpoint (14) Renal lesion: Plan: Incidental note on CT abdomen/pelvis 12/26 of right renal indeterminate lesion 1.6 cm Recommend renal ultrasound on a nonemergent basis (15) DVT prophylaxis: Plan: SCDs, Xarelto Plan Disposition-plan was to go for insurance authorization for [facility] acute rehab on 12/26, but given acute episode of hypotension and ongoing severe constipation/ileus, he is no longer medically stable for discharge at this time Admission and Anticipated Discharge Date Admission Date: December 18, 2021 Subjective Patient was a little bit more confused this morning as per his friend. I was then called urgently to the bedside around 1230 as the nurse noted the patient to be lethargic and have a blood pressure of 63/47. He had an elevated blood sugar at 212. When I came to the bedside, the patient was reporting significant lightheadedness and he started having some vomiting. He also briefly complained of chest pain which then went away and then after we got him back into the bed quickly to lie flat and started an IV fluid bolus, he complained of significant left lower quadrant abdominal pain. A code annabelle was called and he had labs d rawn, EKG which showed sinus rhythm with rates in the 60s and chronic RBBB. He was then taken urgently to CT scan of the abdomen/pelvis due to concerns for severe abdominal pain. Just before he left for CT scan, he passed a very large amount of flatus and felt like his abdominal pain had improved. He was then only complaining of severe left hip pain after being moved into the bed. Fortunately, his blood pressure did improve just with lying flat and starting the IV fluid bolus up to the 90s over 60s. I transferred him to back to the PCU for closer monitoring and made him n.p.o. for severe constipation and abdominal pain. Review of Systems Review of Systems: All systems reviewed & are unremarkable except as noted in HPI & below Physical Exam Constitutional: WD/WN, vitals as above + acute distress and + ill appearing Eyes: + anicteric sclerae ENMT: external ear and nose normal, oropharynx normal Neck: trachea midline, no thyromegaly Respiratory: normal respiratory effort, lungs clear to auscultation Cardiovascular: RRR, no murmur, no edema Chest (Breasts): Chest: normal inspection of chest Gastrointestinal (Abdomen): Inspection/Auscultation: abdomen normal to inspect ion, + abdomen distended (Mild) and normal bowel sounds Percussion/Palpation: + abdomen tender (LLQ without guarding or rebound) Musculoskeletal: Extremities: + extremities abnormal to inspection (Left hip with dressing in place CDI), no cyanosis and no clubbing Skin: no rashes, warm and dry Neurologic: moves all extremities and awake; no focal motor deficits Psychiatric: A+Ox3, euthymic affect Lymphatic: no lymphedema Results & Data Results & Data ([facility]) Vital Signs (Past 12 Hours) Vital Signs Temp Pulse Resp BP Pulse Ox O2 Del Method 12/26/21 10:07 Room Air 12/26/21 07:37 36.6 C 70 16 125/76 99 Room Air Laboratory Results 12/26/21 12/26/21 12/26/21 Range/Units 12:24 10:59 08:26 WBC 7.38 (4.8-10.8) K/ul RBC 3.34 L (4.63-6.08) M/uL Hgb 10.3 L (14.0-18.0) g/dl Hct 30.1 L (40.1-51.0) % MCV 90.1 (80.0-100.0) fL MCH 30.8 (25.0-34.0) pg MCHC 34.2 (32.0-36.0) g/dL RDW Std Deviation 42.2 (36.4-46.3) fL RDW Coeff of Robyn 13.1 (11.5-14.5) % Plt Count 296 (130-400) K/uL MPV 8.7 L (9.4-12.4) fL Immature Gran % (Auto) 0.5 % Neut % (Auto) 61.1 % Lymph % (Auto) 26.4 % [place] % (Auto) 9.1 % Eos % (Auto) 2.2 % Baso % (Auto) 0.7 % Neut # (Auto) 4.51 (1.4-6.5) K/uL Lymph # (Auto) 1.95 (1.2-3.4) K/uL [place] # (Auto) 0.67 (0.24-0.82) K/uL Eos # (Auto) 0.16 (0-0.50) K/uL Baso # (Auto) 0.05 (0-0.2) K/uL Immature Gran # (Auto) 0.04 H (0.00-0.02) K/uL POC Glucose 212 H 268 H (70-99) mg/dl 12/25/21 12/25/21 Range/Units 20:40 17:05 WBC (4.8-10.8) K/ul RBC (4.63-6.08) M/uL Hgb (14.0-18.0) g/dl Hct (40.1-51.0) % MCV (80.0-100.0) fL MCH (25.0-34.0) pg MCHC (32.0-36.0) g/dL RDW Std Deviation (36.4-46.3) fL RDW Coeff of Robyn (11.5-14.5) % Plt Count (130-400) K/uL MPV (9.4-12.4) fL Immature Gran % (Auto) % Neut % (Auto) % Lymph % (Auto) % [place] % (Auto) % Eos % (Auto) % Baso % (Auto) % Neut # (Auto) (1.4-6.5) K/uL Lymph # (Auto) (1.2-3.4) K/uL [place] # (Auto) (0.24-0.82) K/uL Eos # (Auto) (0-0.50) K/uL Baso # (Auto) (0-0.2) K/uL Immature Gran # (Auto) (0.00-0.02) K/uL POC Glucose 171 H 192 H (70-99) mg/dl Diagnostic Findings CT scan abdomen/pelvis prior images personally reviewed by me and agree with the following report: Abdomen/Pelvis CT 12/26/21 12:41 CT OF THE ABDOMEN AND PELVIS WITHOUT CONTRAST CLINICAL HISTORY: Abdominal pain. COMPARISON STUDY: KUB September 30, 2020. CT of the abdomen and pelvis December 16, 2009. TECHNIQUE: Axial images of the abdomen and pelvis were obtained without IV contrast. Images were reviewed in the axial, sagittal, and coronal planes. Automated exposure control was utilized for the study. A dose lowering technique was utilized adhering to the principles of ALARA. FINDINGS: Lung bases are unremarkable. No pneumatosis, free air or portal venous gas is present. There is mild cardiomegaly. Unenhanced images of liver, spleen, adrenal glands, kidneys and pancreas are unremarkable. There is no biliary or pancreatic ductal dilatation. No hydronephrosis. Splenule is incidentally noted. No urinary calculi are present. A 1.6 cm lesion within the lower pole of the right kidney is noted on axial image 259 of 511. This measures above water attenuation although increased attenuation could be artifactual. This study is compromised given lack of IV contrast. Presacral fluid and stranding is noted. A moderate to large amount stool within the colon and rectum is present. There is mild distention of the sigmoid colon. The sigmoid colon is redundant. Apparent transition points within the sigmoid colon are noted. However, there is no convincing evidence for a bowel obstruction. There is no CT evidence for a volvulus at this time. Gas within the bladder is present. Brachytherapy seeds within the prostate are noted. There are postoperative findings consistent with recent left hip arthroplasty with soft tissue gas, fluid and stranding. A small amount of intramuscular hemorrhage within left gluteal muscles is noted. IMPRESSION: 1. Moderate to large amount of stool within the colon and rectum. 2. Mild distention of the sigmoid colon. However, no convincing evidence for a colonic obstruction. No evidence for a volvulus. Short-term radiographic follow- up is recommended. 3. Postoperative findings consistent with recent left hip arthroplasty. Small amount of soft tissue gas as well as fluid and stranding are expected in the early postoperative setting. Small amount of intramuscular hemorrhage within the left gluteal muscles. 4. 1.6 cm right renal lesion. This may reflect a cyst although is indeterminate. Nonemergent renal ultrasound is recommended. ACT 112: Negative or not required by law. Electronically signed by: Luke Hector M.D. 12/26/2021 1:48 PM PG Care Time/CCT Total # of Minutes Spent Total Time Spent with Patient: Total time spent is greater than 50% in coordination of care (as documented) at patient's floor/unit and/or counseling patient: Coding Level of Care Code 85065 Subseq Hosp Care Lvl 3 Diagnoses Hypotension I95.9 Subcapital fracture of left hip S72.012A Encounter type: initial encounter Fracture type: closed Constipation K59.00 Paroxysmal SVT (supraventricular tachycardia) I47.1 Urinary retention R33.9 Acute blood loss anemia D62 Paroxysmal A-fib I48.0 Hypertension I10 Hypertension type: unspecified Hyperlipidemia E78.5 Hypothyroidism E03.9 Diabetes mellitus type 2, uncontrolled Hypomagnesemia E83.42 Mild cognitive impairment G31.84 Renal lesion N28.9 DVT prophylaxis Z29.9 (1) Subcapital fracture of left hip Encounter type: initial encounter Fracture type: closed Qualified Code(s): S72.012A - Unspecified intracapsular fracture of left femur, initial encounter for closed fracture (2) Hypertension Hypertension type: unspecified Qualified Code(s): I10 - Essential (primary) hypertension
[2021-12-26 13:11] LABS: Basophils # (auto) 0.06 K/uL (0-0.2); Basophils % (auto) 0.8 %; Eosinophils # (auto) 0.14 K/uL (0-0.50); Eosinophils % (auto) 1.8 %; Hematocrit (blood only) 28.3 % (40.1-51.0); Hemoglobin 9.7 g/dl (14.0-18.0); Immature Granulocytes # (auto) 0.08 K/uL (0.00-0.02); Lymphocytes % (auto) 21.6 %; Mean Corpuscular Hemoglobin 30.6 pg (25.0-34.0); Mean Corpuscular Hgb Conc 34.3 g/dL (32.0-36.0); Mean Corpuscular Volume 89.3 fL (80.0-100.0); Monocytes # (auto) 0.97 K/uL (0.24-0.82); Monocytes % (auto) 12.3 %; Neutrophils # (auto) 4.92 K/uL (1.4-6.5); Neutrophils % (auto) 62.5 %; Platelet Count 315 K/uL (130-400); RDW Standard Deviation 41.9 fL (36.4-46.3); Red Blood Count 3.17 M/uL (4.63-6.08); White Blood Count 7.87 K/ul (4.8-10.8)
[2021-12-26 13:34] LABS: Albumin Level 3.1 gm/dl (3.4-5.0); BUN Creatinine Ratio 19.4 (10-20); Bilirubin,Total 1.2 mg/dl (0.2-1.0); Creatinine Clr Calc Pharmacy 83.2 ml/min; Est GFR (African American) 98.8 ml/min; Est GFR (Non-African American) 85.2 ml/min; Globulin 3.1 gm/dl (2.5-4.0); Potassium 4.6 mmol/L (3.5-5.1); Total Protein 6.2 gm/dl (6.0-8.3)
[2021-12-26 13:35] LABS: Troponin I High Sensitivity 4.2 pg/ml (0-20)
--- NOTE | 2021-12-26 13:49 | CT Scan Report ---
CT OF THE ABDOMEN AND PELVIS WITHOUT CONTRAST CLINICAL HISTORY: Abdominal pain. COMPARISON STUDY: KUB September 30, 2020. CT of the abdomen and pelvis December 16, 2009. TECHNIQUE: Axial images of the abdomen and pelvis were obtained without IV contrast. Images were revi ewed in the axial, sagittal, and coronal planes. Automated exposure control was utilized for the zara dy. A dose lowering technique was utilized adhering to the principles of ALARA. FINDINGS: Lung bases are unremarkable. No pneumatosis, free air or portal venous gas is present. Ther e is mild cardiomegaly. Unenhanced images of liver, spleen, adrenal glands, kidneys and pancreas are unremarkable. There is no biliary or pancreatic ductal dilatation. No hydronephrosis. Splenule is inc identally noted. No urinary calculi are present. A 1.6 cm lesion within the lower pole of the right k idney is noted on axial image 259 of 511. This measures above water attenuation although increased at tenuation could be artifactual. This study is compromised given lack of IV contrast. Presacral fluid and stranding is noted. A moderate to large amount stool within the colon and rectum is present. Ther e is mild distention of the sigmoid colon. The sigmoid colon is redundant. Apparent transition points within the sigmoid colon are noted. However, there is no convincing evidence for a bowel obstruction . There is no CT evidence for a volvulus at this time. Gas within the bladder is present. Brachythera py seeds within the prostate are noted. There are postoperative findings consistent with recent left hip arthroplasty with soft tissue gas, fluid and stranding. A small amount of intramuscular hemorrhag e within left gluteal muscles is noted. IMPRESSION: 1. Moderate to large amount of stool within the colon and rectum. 2. Mild distention of the sigmoid colon. However, no convincing evidence for a colonic obstruction. N o evidence for a volvulus. Short-term radiographic follow-up is recommended. 3. Postoperative findings consistent with recent left hip arthroplasty. Small amount of soft tissue g as as well as fluid and stranding are expected in the early postoperative setting. Small amount of in tramuscular hemorrhage within the left gluteal muscles. 4. 1.6 cm right renal lesion. This may reflect a cyst although is indeterminate. Nonemergent renal ul trasound is recommended. ACT 112: Negative or not required by law. Electronically signed by: Luke Hector M.D. 12/26/2021 1:48 PM
[2021-12-26] MEDS ORDERED: INSULIN ASPART PER UNIT SC ONE (14:45)
[2021-12-26] MEDS ORDERED: bisacodyL 10 MG SUPP PR STA (14:53)
--- NOTE | 2021-12-26 15:57 | Electrocardiogram Report ---
Test Reason : Blood Pressure : / mmHG Vent. Rate : 069 BPM Atrial Rate : 069 BPM P-R Int : 178 ms QRS Dur : 122 ms QT Int : 440 ms P-R-T Axes : 062 -13 015 degrees QTc Int : 471 ms Sinus rhythm with Premature atrial complexes Right bundle branch block Abnormal ECG When compared with ECG of 18-DEC-2021 08:14, Premature atrial complexes are now Present Confirmed by Reza Victor ([id number]) on 12/26/2021 3:57:05 PM Referred By: REFERRED SELF Confirmed By:Reza Victor
[2021-12-26] MEDS ORDERED: Nursing to Pharmacy Communication SCH (18:15)
[2021-12-26] MEDS: LANTUS PER UNIT CHARGE SQ SCH (21:00)
[2021-12-26] MEDS: ATORVASTATIN 40 MG TAB PO SCH (21:01)
[2021-12-26] MEDS: SENNA 8.6 MG TAB PO SCH (21:02)
[2021-12-26] MEDS: RIVAROXABAN 20 MG TAB PO SCH (21:02)
[2021-12-26] MEDS: TAMSULOSIN HCL 0.4 MG CAP PO SCH (21:03)
[2021-12-26] MEDS ORDERED: SOD PHOSPHATE/SOD BIPHOSPHATE ENEMA 132 ML BTL PR STA (23:00)
[2021-12-27] MEDS: INSULIN ASPART PER UNIT SC SCH ×5 (00:10→21:11)
[2021-12-27] MEDS: oxyCODONE HCL IR 5 MG TAB (IMMEDIATE RELEASE) PO PRN ×4 (00:14→23:32)
[2021-12-27] MEDS: LEVOTHYROXINE SODIUM 125 MCG TABLET PO SCH (05:53)
[2021-12-27] MEDS: ACETAMINOPHEN 500 MG TAB PO SCH ×3 (05:53→21:15)
[2021-12-27 06:40] LABS: Basophils # (auto) 0.04 K/uL (0-0.2); Basophils % (auto) 0.7 %; Eosinophils # (auto) 0.21 K/uL (0-0.50); Eosinophils % (auto) 3.7 %; Hematocrit (blood only) 22.9 % (40.1-51.0); Hemoglobin 7.6 g/dl (14.0-18.0); Immature Granulocytes # (auto) 0.05 K/uL (0.00-0.02); Immature Granulocytes % (auto) 0.9 %; Lymphocytes % (auto) 29.8 %; Mean Corpuscular Hemoglobin 30.2 pg (25.0-34.0); Mean Corpuscular Hgb Conc 33.2 g/dL (32.0-36.0); Mean Corpuscular Volume 90.9 fL (80.0-100.0); Mean Platelet Volume 8.9 fL (9.4-12.4); Monocytes # (auto) 0.63 K/uL (0.24-0.82); Neutrophils # (auto) 3.08 K/uL (1.4-6.5); Neutrophils % (auto) 53.9 %; Platelet Count 221 K/uL (130-400); RDW Coefficient of Variation 13.1 % (11.5-14.5); RDW Standard Deviation 42.3 fL (36.4-46.3); Red Blood Count 2.52 M/uL (4.63-6.08); White Blood Count 5.71 K/ul (4.8-10.8)
[2021-12-27 07:13] LABS: BUN Creatinine Ratio 23.3 (10-20); Calcium 8.1 mg/dl (8.5-10.1); Est GFR (African American) 121.4 ml/min; Est GFR (Non-African American) 104.8 ml/min; Magnesium 1.8 mg/dl (1.7-2.4); Potassium 3.9 mmol/L (3.5-5.1)
[2021-12-27 07:23] LABS: Acanthocytes 1+; Basophilic Stippling 1+; Echinocytes 1+; Polychromasia 1+
[2021-12-27] MEDS ORDERED: LANTUS PER UNIT CHARGE SQ SCH (09:00)
[2021-12-27] MEDS: MULTIVITAMIN TAB PO SCH (09:22)
[2021-12-27] MEDS: MAGNESIUM OXIDE 400 MG TAB PO SCH ×2 (09:22→21:15)
[2021-12-27] MEDS: bisacodyL 10 MG SUPP PR SCH (09:22)
[2021-12-27] MEDS: NICOTINE 21 MG/24 HR TDSY TD SCH (09:23)
[2021-12-27] MEDS: METOPROLOL TARTRATE 25 MG TAB PO SCH ×2 (09:23→20:11)
[2021-12-27] MEDS: DOCUSATE SODIUM 100 MG CAP PO SCH ×2 (09:27→21:10)
--- NOTE | 2021-12-27 09:32 | XRay Report ---
KUB HISTORY: f/u severe constipation,?sigmoid transition point COMPARISON: Abdomen and pelvis CT 12/26/2021. FINDINGS: Multiple gas-filled nondilated loops of small bowel are again seen throughout the abdomen. Mildly distended colon containing a large amount of stool. This is similar to the prior study. No kay dence for bowel obstruction. There is a 9 cm rectal stool ball. Recent left total hip arthroplasty wi th left hip skin jerry. Multiple brachytherapy seeds noted within the prostate gland. No renal carmen culi. No ureteral calculi. No pneumoperitoneum or pneumatosis. IMPRESSION: 1. No significant in the large amount of well-formed stool within the colon and rectum. 2. No evidence for bowel obstruction. 3. Recent left total hip arthroplasty. ACT 112: Negative or not required by law. Electronically signed by: José Miguel Aldridge M.D. 12/27/2021 9:31 AM
--- NOTE | 2021-12-27 10:04 | Pharmacy Report ---
Pharmacy Glycemic Short Note 2 - Date of Service December 27, 2021 - Glycemic Short BSG Results (Last 24 hours): 12/26/21 12/26/21 12/26/21 12:24 12:48 14:33 Glucose 200 H POC Glucose 212 H 224 H 12/26/21 12/26/21 12/26/21 17:24 20:40 23:56 Glucose POC Glucose 240 H 142 H 115 H 12/27/21 12/27/21 12/27/21 05:52 06:06 07:34 Glucose 117 H POC Glucose 117 H 135 H OUTPATIENT ANTIDIABETIC REGIMEN: * Lantus 15 units SC BID * Novolog 03/12/13 units TIDM, plus sliding scale with correction factor of 35 mg/dL/unit * Metformin 500 mg PO BIDM * HbA1c = 8.5% (12/06/21) ASSESSMENT: 12/27: * Now NPO until BM occurs - severe orthostatic hypotension yesterday (requiring transfer to ) 2nd severe constipation/ileus * Will keep lower Lantus dose 2nd NPO status. Will need to increase back once diet re-ordered * Novolog now q6h at the previous lunch/dinner/bedtime regimen. Will need to tighten again w breakfast once diet re-ordered 12/26: * BSGs elevated yesterday, 171-289 mg/dL * Assuming hyperglycemia is related to inadequate basal insulin as it had been decreased a couple of days ago. Initially planned to increase basal today, but now patient with vomiting and severe abdominal pain likely related to constipation. He has been made NPO, so will decrease basal insulin today. 12/25: * Received total 43 units of insulin yesterday; 25 units basal and 18 units bolus. * Fasting BSG today was 224 mg/dl and compared to last couple of days, it is significantly elevated. HS Lantus dose increased slightly tonight. * BSGs yesterday 105-585-22-81 mg/dl. * Novolog parameters continued the same at breakfast but loosened for lunch, dinner and HS to prevent hypoglycemia in the evening. Background: * 66 yo M with T2DM admitted with a hip fracture on 12/18 and found to be profoundly hyperglycemic. History notable both for diabetic coma last year and also history of severe lows when on an insulin drip prior, per discussion with Josie Stephens (who obtained this information from a friend of the patient). Discussed risks/benefits of insulin drip given elevated anion gap - plan to initiate insulin drip with DKA protocol which includes reflex dextrose in IV once BSG's in goal range. Plan is to continue drip with dextrose containing fluids until tomorrow AM, when patient can hopefully be transitioned safely off of the drip. PLAN FOR INPATIENT GLYCEMIC CONTROL: * Hold outpatient oral diabetes medication (metformin) * Basal insulin * Lantus 18 units SC qAM, 0-10 units SC HS (see EHR for details) * Bolus insulin - q6h while NPO * Goal range 110-140 mg/dL * Correction factor: 30 mg/dL/unit * Carb ratio: 9 g CHO/unit
[2021-12-27] MEDS: SODIUM CHLORIDE 0.9% 1000ML 1,000 ML IV SCH ×3 (12:58→21:26)
[2021-12-27] MEDS ORDERED: MINERAL OIL ENEMA 133 ML BTL PR ONE (15:05)
[2021-12-27 15:08] LABS: Ferritin 212.1 ng/ml (8-388)
[2021-12-27 15:13] LABS: Folate (Folic Acid) 17.09 ng/ml (>5.38)
[2021-12-27] MEDS ORDERED: Nursing to Pharmacy Communication SCH (16:15)
[2021-12-27] MEDS ORDERED: KETOROLAC TROMETHAMINE 15 MG/ML VIAL IV ONE (17:49)
[2021-12-27] MEDS ORDERED: KETOROLAC 30 MG/ML VIAL ONE (17:55)
--- NOTE | 2021-12-27 19:52 | Hospitalist Progress Note ---
Date of Service December 27, 2021 Assessment & Plan (1) Subcapital fracture of left hip: Plan: POD #7 - s/p ORIF by Dr Baker. recent 25-OH vit D level on 12/06/21 was 32. DVT proph - xarelto. pain control remains a large issue and he is having severe constipation as well. trying to minimize narcotics right now because of the constipation. tylenol 1gm TID scheduled. toradol 15mg x 1 dose today. oxycodone prn. if pain is still severe I will ask ortho to re-eval the hip tomorrow to ensure there is nothing else contributing to pain. (2) Acute blood loss anemia: Plan: 2nd to #1 above. Initial Hb this am was <8. I repeated the Hb and repeat was 9. Thus - stable. B12, folate wnl. Fe studies wnl. Cont to trend. (3) Constipation: Plan: severe with impaction on CT 12/26 and on today's KUB. no ileus or obstruction. attempt another enema today. cont PO agents. may need manual disimpaction if enema fails. (4) Paroxysmal SVT (supraventricular tachycardia): Plan: continues with episodes of SVT. rate control is poor despite the metoprolol. echo with preserved EF. cont metoprolol tartrate 25mg BID. cont telemetry monitoring. given how frequent the episodes are will d/w cardiology next steps. (5) Paroxysmal A-fib: Plan: First diagnosed in 2020. Remains on Xarelto. Remains on metoprolol. No a.fib seen on tele since admission. Echo wnl. Appreciate cardiology consult earlier in admission from Dr Nguyen. (6) Hypertension: Plan: amlodipine, lisinopril, HCTZ all on hold and BPs still are stable. no need for above meds likely due to acute blood loss anemia. cont metoprolol BID. (7) Hyperlipidemia: Plan: Continue statin. (8) Hypothyroidism: Plan: Continue Levothyroxine. TSH 08/2021 wnl. (9) Diabetes mellitus type 2, uncontrolled: Plan: appreciate pharmacy glycemic consult & recs/management. remains on basal-bolus insulin with satisfactory control. recent Hba1c 8.5% patient follows with Megan Tony - early childhood educator aide - at [facility]. (10) Hypomagnesemia: Plan: replaced resolved (11) Hypophosphatemia: Plan: repleted resolved (12) Mild cognitive impairment: Plan: noted stable (13) DVT prophylaxis: Plan: Xarelto (14) Renal lesion: Plan: per CT - "1.6 cm right renal lesion. This may reflect a cyst although is indeterminate. Nonemergent renal ultrasound is recommended." defer u/s to outpatient setting Plan updated Ms Quinteros - pt's contact listed in chart - by phone this evening extensive update given of note - given no ileus/obstruction on KUB x-ray today may start diabetic clear liquid diet Admission and Anticipated Discharge Date Admission Date: December 18, 2021 Subjective patient continues with severe left hip pain even rolling in bed causes severe pain also with ongoing constipation despite enema yesterday and dulcolax suppos this am IS passing flatus, however remains NPO and he is hungry tele today with episode SVT -- no symptoms during such updated pt's 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, Ms Guerline Quinteros, by phone today Review of Systems Review of Systems: gen - feels poorly due to pain cv - no cp, no orthopnea pulm - no dyspnea GI - no abd pain despite the constipation; no nausea or emesis Physical Exam Physical Exam: gen - NAD except for when he gets pain in his left hip, otherwise awake/alert mouth - MMM neck - no JVD heart - RRR, s1 s2, no murmur lungs - CTA b/l, no rales abd - soft NT ND BS+ musculo - left thigh with mild edema, unable to visualize the incision site (he could not roll enough) ext - no ankle edema, pulses 2+ b/l Results & Data Results & Data ([facility]) Vital Signs (Past 12 Hours) Vital Signs Temp Pulse Pulse Pulse Resp BP Pulse Ox 12/27/21 19:12 37.0 C 80 18 139/82 97 12/27/21 08:00 12/27/21 08:00 70 12/27/21 15:19 36.4 C L 79 19 134/76 100 O2 Del Method 12/27/21 19:12 Room Air 12/27/21 08:00 Room Air 12/27/21 08:00 12/27/21 15:19 Room Air Laboratory Results Laboratory Results - last 24 hr 12/26/21 12/26/21 12/27/21 20:40 23:56 05:52 WBC RBC Hgb Hct MCV MCH MCHC RDW Std Deviation RDW Coeff of Robyn Plt Count MPV Immature Gran % (Auto) Neut % (Auto) Lymph % (Auto) [place] % (Auto) Eos % (Auto) Baso % (Auto) Neut # (Auto) Lymph # (Auto) [place] # (Auto) Eos # (Auto) Baso # (Auto) Immature Gran # (Auto) Polychromasia Basophilic Stippling Echinocytes Acanthocytes (Spur) Sodium Potassium Chloride Carbon Dioxide Anion Gap BUN Creatinine Est Cr Clr Drug Dosing Est GFR ( Amer) Est GFR (Non-Af Amer) BUN/Creatinine Ratio Glucose POC Glucose 142 H 115 H 117 H Calcium Magnesium Iron TIBC Unsaturated IBC Transferrin % Sat Ferritin Vitamin B12 Folate 12/27/21 12/27/21 12/27/21 06:06 06:06 07:34 WBC 5.71 RBC 2.52 L Hgb 7.6 L Hct 22.9 L MCV 90.9 MCH 30.2 MCHC 33.2 RDW Std Deviation 42.3 RDW Coeff of Robyn 13.1 Plt Count 221 MPV 8.9 L Immature Gran % (Auto) 0.9 Neut % (Auto) 53.9 Lymph % (Auto) 29.8 [place] % (Auto) 11.0 Eos % (Auto) 3.7 Baso % (Auto) 0.7 Neut # (Auto) 3.08 Lymph # (Auto) 1.70 [place] # (Auto) 0.63 Eos # (Auto) 0.21 Baso # (Auto) 0.04 Immature Gran # (Auto) 0.05 H Polychromasia 1+ Basophilic Stippling 1+ Echinocytes 1+ Acanthocytes (Spur) 1+ Sodium 137 Potassium 3.9 Chloride 105 Carbon Dioxide 29 Anion Gap 3 BUN 14 Creatinine 0.60 D Est Cr Clr Drug Dosing 129.0 Est GFR ( Amer) 121.4 Est GFR (Non-Af Amer) 104.8 BUN/Creatinine Ratio 23.3 H Glucose 117 H POC Glucose 135 H Calcium 8.1 L Magnesium 1.8 Iron TIBC Unsaturated IBC Transferrin % Sat Ferritin Vitamin B12 Folate 12/27/21 12/27/21 12/27/21 12:03 14:11 14:11 WBC RBC Hgb Hct MCV MCH MCHC RDW Std Deviation RDW Coeff of Robyn Plt Count MPV Immature Gran % (Auto) Neut % (Auto) Lymph % (Auto) [place] % (Auto) Eos % (Auto) Baso % (Auto) Neut # (Auto) Lymph # (Auto) [place] # (Auto) Eos # (Auto) Baso # (Auto) Immature Gran # (Auto) Polychromasia Basophilic Stippling Echinocytes Acanthocytes (Spur) Sodium Potassium Chloride Carbon Dioxide Anion Gap BUN Creatinine Est Cr Clr Drug Dosing Est GFR ( Amer) Est GFR (Non-Af Amer) BUN/Creatinine Ratio Glucose POC Glucose 118 H Calcium Magnesium Iron 40 TIBC 195 L Unsaturated IBC 155 Transferrin % Sat 21 Ferritin 212.1 Vitamin B12 542 Folate 17.09 12/27/21 12/27/21 14:11 16:11 WBC RBC Hgb 9.0 L Hct 27.0 L MCV MCH MCHC RDW Std Deviation RDW Coeff of Robyn Plt Count MPV Immature Gran % (Auto) Neut % (Auto) Lymph % (Auto) [place] % (Auto) Eos % (Auto) Baso % (Auto) Neut # (Auto) Lymph # (Auto) [place] # (Auto) Eos # (Auto) Baso # (Auto) Immature Gran # (Auto) Polychromasia Basophilic Stippling Echinocytes Acanthocytes (Spur) Sodium Potassium Chloride Carbon Dioxide Anion Gap BUN Creatinine Est Cr Clr Drug Dosing Est GFR ( Amer) Est GFR (Non-Af Amer) BUN/Creatinine Ratio Glucose POC Glucose 114 H Calcium Magnesium Iron TIBC Unsaturated IBC Transferrin % Sat Ferritin Vitamin B12 Folate Diagnostic Findings KUB X-Ray 12/27/21 07:00 KUB HISTORY: f/u severe constipation,?sigmoid transition point COMPARISON: Abdomen and pelvis CT 12/26/2021. FINDINGS: Multiple gas-filled nondilated loops of small bowel are again seen throughout the abdomen. Mildly distended colon containing a large amount of stool. This is similar to the prior study. No evidence for bowel obstruction. T here is a 9 cm rectal stool ball. Recent left total hip arthroplasty with left hip skin jerry. Multiple brachytherapy seeds noted within the prostate gland. No renal calculi. No ureteral calculi. No pneumoperitoneum or pneumatosis. IMPRESSION: 1. No significant in the large amount of well-formed stool within the colon and rectum. 2. No evidence for bowel obstruction. 3. Recent left total hip arthroplasty. ACT 112: Negative or not required by law. Electronically signed by: José Miguel Aldridge M.D. 12/27/2021 9:31 AM PG Care Time/CCT Total # of Minutes Spent Total Time Spent with Patient: Total time spent is greater than 50% in coordination of care (as documented) at patient's floor/unit and/or counseling patient: Coding Level of Care Code 58834 Subseq Hosp Care Lvl 3 Diagnoses Subcapital fracture of left hip S72.012A Encounter type: initial encounter Fracture type: closed Acute blood loss anemia D62 Constipation K59.00 Paroxysmal SVT (supraventricular tachycardia) I47.1 Paroxysmal A-fib I48.0 Hypertension I10 Hypertension type: unspecified Hyperlipidemia E78.5 Hypothyroidism E03.9 Diabetes mellitus type 2, uncontrolled Hypomagnesemia E83.42 Hypophosphatemia E83.39 Mild cognitive impairment G31.84 DVT prophylaxis Z29.9 Renal lesion N28.9 (1) Subcapital fracture of left hip Encounter type: initial encounter Fracture type: closed Qualified Code(s): S72.012A - Unspecified intracapsular fracture of left femur, initial encounter for closed fracture (2) Hypertension Hypertension type: unspecified Qualified Code(s): I10 - Essential (primary) hypertension
[2021-12-27] MEDS: LANTUS PER UNIT CHARGE SQ SCH (21:10)
[2021-12-27] MEDS: ATORVASTATIN 40 MG TAB PO SCH (21:10)
[2021-12-27] MEDS: RIVAROXABAN 20 MG TAB PO SCH (21:12)
[2021-12-27] MEDS: SENNA 8.6 MG TAB PO SCH (21:12)
[2021-12-27] MEDS: TAMSULOSIN HCL 0.4 MG CAP PO SCH (21:13)
[2021-12-27 23:48] LABS: Hematocrit (blood only) 25.1 % (40.1-51.0); Hemoglobin 8.6 g/dl (14.0-18.0); Mean Corpuscular Hemoglobin 30.7 pg (25.0-34.0); Mean Corpuscular Hgb Conc 34.3 g/dL (32.0-36.0); Mean Corpuscular Volume 89.6 fL (80.0-100.0); Mean Platelet Volume 8.3 fL (9.4-12.4); Platelet Count 229 K/uL (130-400); RDW Coefficient of Variation 13.2 % (11.5-14.5); RDW Standard Deviation 42.3 fL (36.4-46.3); White Blood Count 5.78 K/ul (4.8-10.8)
[2021-12-28 00:10] LABS: BUN Creatinine Ratio 18.5 (10-20); Calcium 8.2 mg/dl (8.5-10.1); Creatinine Clr Calc Pharmacy 119.1 ml/min; Est GFR (African American) 117.5 ml/min; Est GFR (Non-African American) 101.4 ml/min; Magnesium 1.8 mg/dl (1.7-2.4); Potassium 3.6 mmol/L (3.5-5.1)
[2021-12-28] MEDS ORDERED: MAGNESIUM SULFATE / D5W 1 GM/100 ML BAG IV ONE (03:56)
[2021-12-28] MEDS: POTASSIUM CHLORIDE / WTR 10 MEQ/100 ML PLCT IV SCH ×3 (04:35→06:29)
[2021-12-28] MEDS: ACETAMINOPHEN 500 MG TAB PO SCH ×3 (05:32→21:54)
[2021-12-28] MEDS: LEVOTHYROXINE SODIUM 125 MCG TABLET PO SCH (06:05)
[2021-12-28] MEDS ORDERED: LANTUS PER UNIT CHARGE SQ ONE (07:30)
[2021-12-28] MEDS: INSULIN ASPART PER UNIT SC SCH ×4 (08:05→21:54)
[2021-12-28] MEDS: MULTIVITAMIN TAB PO SCH (08:05)
[2021-12-28] MEDS: bisacodyL 10 MG SUPP PR SCH (08:05)
[2021-12-28] MEDS: METOPROLOL TARTRATE 25 MG TAB PO SCH ×2 (08:05→21:53)
[2021-12-28] MEDS: NICOTINE 21 MG/24 HR TDSY TD SCH (08:05)
[2021-12-28] MEDS: DOCUSATE SODIUM 100 MG CAP PO SCH ×2 (08:06→21:53)
[2021-12-28] MEDS: MAGNESIUM OXIDE 400 MG TAB PO SCH ×2 (08:06→21:53)
--- NOTE | 2021-12-28 10:24 | Pharmacy Report ---
Pharmacy Glycemic Short Note 2 - Date of Service December 28, 2021 - Glycemic Short BSG Results (Last 24 hours): 12/27/21 12/27/21 12/27/21 12:03 16:11 20:24 Glucose POC Glucose 118 H 114 H 152 H 12/27/21 12/28/21 23:32 07:11 Glucose 96 POC Glucose 74 OUTPATIENT ANTIDIABETIC REGIMEN: * Lantus 15 units SC BID * Novolog 03/12/13 units TIDM, plus sliding scale with correction factor of 35 mg/dL/unit * Metformin 500 mg PO BIDM * HbA1c = 8.5% (12/06/21) ASSESSMENT: 12/28: * Diet resumed last night * AM fasting BSG below goal range - will decrease Lantus * Will resume prior Novolog regimen, with tighter parameters at breakfast. 12/27: * Now NPO until BM occurs - severe orthostatic hypotension yesterday (requiring transfer to ) 2nd severe constipation/ileus * Will keep lower Lantus dose 2nd NPO status. Will need to increase back once diet re-ordered * Novolog now q6h at the previous lunch/dinner/bedtime regimen. Will need to tighten again w breakfast once diet re-ordered 12/26: * BSGs elevated yesterday, 171-289 mg/dL * Assuming hyperglycemia is related to inadequate basal insulin as it had been decreased a couple of days ago. Initially planned to increase basal today, but now patient with vomiting and severe abdominal pain likely related to constipation. He has been made NPO, so will decrease basal insulin today. 12/25: * Received total 43 units of insulin yesterday; 25 units basal and 18 units bolus. * Fasting BSG today was 224 mg/dl and compared to last couple of days, it is significantly elevated. HS Lantus dose increased slightly tonight. * BSGs yesterday 243-249-84-81 mg/dl. * Novolog parameters continued the same at breakfast but loosened for lunch, dinner and HS to prevent hypoglycemia in the evening. Background: * 66 yo M with T2DM admitted with a hip fracture on 12/18 and found to be profoundly hyperglycemic. History notable both for diabetic coma last year and also history of severe lows when on an insulin drip prior, per discussion with Josie Stephens (who obtained this information from a friend of the patient). Discussed risks/benefits of insulin drip given elevated anion gap - plan to initiate insulin drip with DKA protocol which includes reflex dextrose in IV once BSG's in goal range. Plan is to continue drip with dextrose containing fluids until tomorrow AM, when patient can hopefully be transitioned safely off of the drip. PLAN FOR INPATIENT GLYCEMIC CONTROL: * Hold outpatient oral diabetes medication (metformin) * Basal insulin * Lantus 15 units SC qAM, 0-10 units SC HS (see EHR for details) * Bolus insulin ACHS * Goal range 110-140 mg/dL * Correction factor: 20 mg/dL/unit with breakfast, 30 mg/dL/unit with lunch, dinner, bedtime * Carb ratio: 7 g CHO/unit with breakfast, 9 g CHO/unit with lunch, dinner, bedtime
[2021-12-28] MEDS: SODIUM CHLORIDE 0.9% 1000ML 1,000 ML IV SCH (11:45)
--- NOTE | 2021-12-28 14:33 | Electrocardiogram Report ---
Test Reason : Blood Pressure : / mmHG Vent. Rate : 155 BPM Atrial Rate : 019 BPM P-R Int : 000 ms QRS Dur : 122 ms QT Int : 344 ms P-R-T Axes : 000 -34 -16 degrees QTc Int : 552 ms Wide QRS tachycardia with occasional Premature ventricular complexes Left axis deviation Right bundle branch block T wave abnormality, consider lateral ischemia Abnormal ECG When compared with ECG of 26-DEC-2021 12:39, Wide QRS tachycardia has replaced Sinus rhythm Vent. rate has increased BY 86 BPM Confirmed by Reza Victor ([id number]) on 12/28/2021 2:32:48 PM Referred By: REFERRED SELF Confirmed By:Reza Victor
--- NOTE | 2021-12-28 16:26 | Electrocardiogram Report ---
Test Reason : Blood Pressure : / mmHG Vent. Rate : 082 BPM Atrial Rate : 082 BPM P-R Int : 192 ms QRS Dur : 130 ms QT Int : 360 ms P-R-T Axes : 063 -24 029 degrees QTc Int : 420 ms Sinus rhythm with Premature supraventricular complexes Right bundle branch block Abnormal ECG When compared with ECG of 26-DEC-2021 12:39, No significant change was found Confirmed by Reza Victor ([id number]) on 12/28/2021 4:26:05 PM Referred By: REFERRED SELF Confirmed By:Reza Victor
[2021-12-28] MEDS: ATORVASTATIN 40 MG TAB PO SCH (21:53)
[2021-12-28] MEDS: SENNA 8.6 MG TAB PO SCH (21:53)
[2021-12-28] MEDS: TAMSULOSIN HCL 0.4 MG CAP PO SCH (21:53)
[2021-12-28] MEDS: RIVAROXABAN 20 MG TAB PO SCH (21:53)
[2021-12-28] MEDS: LANTUS PER UNIT CHARGE SQ SCH (21:55)
--- NOTE | 2021-12-28 22:08 | Hospitalist Progress Note ---
Date of Service December 28, 2021 Assessment & Plan (1) Subcapital fracture of left hip: Plan: POD #8 - s/p ORIF by Dr Baker. recent 25-OH vit D level on 12/06/21 was 32. DVT proph - xarelto. pain control remains a large issue and he is having severe constipation as well. latter FINALLY improved today s/p enema this am. still trying to minimize narcotics due to the severe constipation. cont tylenol 1gm TID scheduled. cont oxycodone prn sparingly. if pain is still severe I will ask ortho to re-eval the hip to ensure there is nothing else contributing to pain. (2) Acute blood loss anemia: Plan: 2nd to #1 above. H/H acceptable today. B12, folate wnl. Fe studies wnl. Cont to trend. (3) Constipation: Plan: severe with impaction on CT 12/26 and on 12/27 KUB. no ileus or obstruction. finally with 2 large BMs today. now that impaction is improved will need aggressive bowel regimen - cont senna daily, miralax BID, and colace BID. (4) Paroxysmal SVT (supraventricular tachycardia): Plan: continues with episodes of SVT. rate control is poor even despite the metoprolol. echo with preserved EF. cont metoprolol tartrate 25mg BID. cont telemetry monitoring. I spoke with cardiology about this and they will re-eval. ablation? antiarrhythmic? other? (5) Paroxysmal A-fib: Plan: First diagnosed in 2020. Remains on Xarelto. Remains on metoprolol. No a.fib seen on tele since admission. Echo wnl. Appreciate cardiology consult earlier in admission from Dr Nguyen. (6) Hypertension: Plan: amlodipine, lisinopril, HCTZ all on hold and BPs still are stable. no need for above meds likely due to acute blood loss anemia. cont metoprolol BID. (7) Hyperlipidemia: Plan: Continue statin. (8) Hypothyroidism: Plan: Continue Levothyroxine. TSH 08/2021 wnl. (9) Diabetes mellitus type 2, uncontrolled: Plan: appreciate pharmacy glycemic consult & recs/management. remains on basal-bolus insulin with satisfactory control. recent Hba1c 8.5% patient follows with Megan Caponeor - childbirth educator - at [facility] clinic. (10) Hypomagnesemia: Plan: replaced resolved (11) Hypophosphatemia: Plan: repleted resolved (12) Mild cognitive impairment: Plan: noted does have periods of confusion otherwise stable (13) DVT prophylaxis: Plan: Xarelto (14) Renal lesion: Plan: per CT - "1.6 cm right renal lesion. This may reflect a cyst although is indeterminate. Nonemergent renal ultrasound is recommended." defer u/s to outpatient setting Plan updated Ms Quinteros - pt's contact listed in chart - by phone 12/27 extensive update given advance diet back to regular diabetic diet dispo - rehab post-d/c Admission and Anticipated Discharge Date Admission Date: December 18, 2021 Subjective continues with episodes of SVT on tele longest episodes are 10 minutes or less most are much shorter he usually is in bed watching TV when they happen he is told to perform vagal maneuvers and this often terminates the spells he took another enema this morning and finally had a very large bowel movement he then had a 2nd movement later on tolerating clears; he is hungry for normal food continues with left hip pain - about the same as yesterday Review of Systems Review of Systems: cv - no cp, no palpitations even during his SVT spells pulm - no dyspnea at rest GI - no nausea, emesis or abd pain Physical Exam Physical Exam: gen - NAD; mild confusion noted mouth - MMM neck - no JVD heart - RRR, s1 s2, no murmur lungs - CTA b/l, no rales abd - soft NT ND BS+ musculo - left thigh with mild edema ext - no ankle edema, pulses 2+ b/l skin - left hip incision clean, dry, jerry intact Results & Data Results & Data ([facility]) Vital Signs (Past 12 Hours) Vital Signs Temp Pulse Resp BP BP Pulse Ox O2 Del Method 12/28/21 19:44 37.2 C 86 22 144/85 H 96 Room Air 12/28/21 16:31 36.7 C 75 18 143/86 H 98 Room Air 12/28/21 10:55 36.7 C 77 18 117/78 97 Room Air Laboratory Results Laboratory Results - last 24 hr 12/27/21 12/27/21 12/28/21 23:32 23:32 07:11 WBC 5.78 RBC 2.80 L Hgb 8.6 L Hct 25.1 L MCV 89.6 MCH 30.7 MCHC 34.3 RDW Std Deviation 42.3 RDW Coeff of Robyn 13.2 Plt Count 229 MPV 8.3 L Sodium 137 Potassium 3.6 Chloride 107 Carbon Dioxide 26 Anion Gap 4 BUN 12 Creatinine 0.65 Est Cr Clr Drug Dosing 119.1 Est GFR ( Amer) 117.5 Est GFR (Non-Af Amer) 101.4 BUN/Creatinine Ratio 18.5 Glucose 96 POC Glucose 74 Calcium 8.2 L Magnesium 1.8 12/28/21 12/28/21 12/28/21 11:06 16:31 21:33 WBC RBC Hgb Hct MCV MCH MCHC RDW Std Deviation RDW Coeff of Robyn Plt Count MPV Sodium Potassium Chloride Carbon Dioxide Anion Gap BUN Creatinine Est Cr Clr Drug Dosing Est GFR ( Amer) Est GFR (Non-Af Amer) BUN/Creatinine Ratio Glucose POC Glucose 152 H 70 155 H Calcium Magnesium Diagnostic Findings most recent EKG - wide complex tachycardia most c/w SVT as previously noted by cardiology PG Care Time/CCT Total # of Minutes Spent Total Time Spent with Patient: Total time spent is greater than 50% in coordination of care (as documented) at patient's floor/unit and/or counseling patient: Coding Level of Care Code 76890 Subseq Hosp Care Lvl 2 Diagnoses Subcapital fracture of left hip S72.012A Encounter type: initial encounter Fracture type: closed Acute blood loss anemia D62 Constipation K59.00 Paroxysmal SVT (supraventricular tachycardia) I47.1 Paroxysmal A-fib I48.0 Hypertension I10 Hypertension type: unspecified Hyperlipidemia E78.5 Hypothyroidism E03.9 Diabetes mellitus type 2, uncontrolled Hypomagnesemia E83.42 Hypophosphatemia E83.39 Mild cognitive impairment G31.84 DVT prophylaxis Z29.9 Renal lesion N28.9 (1) Subcapital fracture of left hip Encounter type: initial encounter Fracture type: closed Qualified Code(s): S72.012A - Unspecified intracapsular fracture of left femur, initial encounter for closed fracture (2) Hypertension Hypertension type: unspecified Qualified Code(s): I10 - Essential (primary) hypertension
[2021-12-29] MEDS: ACETAMINOPHEN 500 MG TAB PO SCH ×3 (05:45→21:51)
[2021-12-29] MEDS: LEVOTHYROXINE SODIUM 125 MCG TABLET PO SCH (05:45)
[2021-12-29 06:21] LABS: Hematocrit (blood only) 25.1 % (40.1-51.0); Hemoglobin 8.5 g/dl (14.0-18.0); Mean Corpuscular Hemoglobin 30.6 pg (25.0-34.0); Mean Corpuscular Hgb Conc 33.9 g/dL (32.0-36.0); Mean Corpuscular Volume 90.3 fL (80.0-100.0); Mean Platelet Volume 8.5 fL (9.4-12.4); Platelet Count 251 K/uL (130-400); RDW Coefficient of Variation 13.3 % (11.5-14.5); RDW Standard Deviation 43.1 fL (36.4-46.3); Red Blood Count 2.78 M/uL (4.63-6.08); White Blood Count 5.96 K/ul (4.8-10.8)
[2021-12-29 06:59] LABS: BUN Creatinine Ratio 20.6 (10-20); Calcium 8.2 mg/dl (8.5-10.1); Est GFR (Non-African American) 102.7 ml/min; Potassium 3.7 mmol/L (3.5-5.1)
[2021-12-29] MEDS: INSULIN ASPART PER UNIT SC SCH ×4 (08:40→20:21)
[2021-12-29] MEDS: LANTUS PER UNIT CHARGE SQ SCH ×2 (08:42→20:21)
[2021-12-29] MEDS: METOPROLOL TARTRATE 25 MG TAB PO SCH ×2 (08:49→20:10)
[2021-12-29] MEDS: MULTIVITAMIN TAB PO SCH (08:50)
[2021-12-29] MEDS: NICOTINE 21 MG/24 HR TDSY TD SCH (08:50)
[2021-12-29] MEDS: DOCUSATE SODIUM 100 MG CAP PO SCH ×2 (08:51→20:14)
[2021-12-29] MEDS: POLYETHYLENE (MIRALAX) 17 GM PACK PO SCH ×2 (08:51→20:10)
[2021-12-29] MEDS: MAGNESIUM OXIDE 400 MG TAB PO SCH ×2 (08:51→20:19)
[2021-12-29] MEDS: bisacodyL 10 MG SUPP PR SCH (08:51)
--- NOTE | 2021-12-29 10:01 | XRay Report ---
AP AND LATERAL LEFT HIP History: Left total hip arthroplasty. Postop. FINDINGS: The patient is status post a left total hip arthroplasty. The hardware is intact. No fractu re or dislocation. Skin jerry are in place. IMPRESSION: Left total hip arthroplasty. No evidence for hardware complication. ACT 112: Negative or not required by law. Electronically signed by: José Miguel Aldridge M.D. 12/29/2021 9:59 AM
--- NOTE | 2021-12-29 10:39 | Pharmacy Report ---
Pharmacy Glycemic Short Note 2 - Date of Service December 29, 2021 - Glycemic Short BSG Results (Last 24 hours): 12/28/21 12/28/21 12/28/21 11:06 16:31 21:33 Glucose POC Glucose 152 H 70 155 H 12/29/21 12/29/21 05:57 07:34 Glucose 140 H POC Glucose 156 H OUTPATIENT ANTIDIABETIC REGIMEN: * Lantus 15 units SC BID * Novolog 03/12/13 units TIDM, plus sliding scale with correction factor of 35 mg/dL/unit * Metformin 500 mg PO BIDM * HbA1c = 8.5% (12/06/21) ASSESSMENT: 12/29: * Stressors stable * AM fasting BSG increasing notably. Will increase Lantus * Post-prandial near hypoglycemic event yesterday at dinner. Will loosen CHO ratio with lunch. 12/28: * Diet resumed last night * AM fasting BSG below goal range - will decrease Lantus * Will resume prior Novolog regimen, with tighter parameters at breakfast. 12/27: * Now NPO until BM occurs - severe orthostatic hypotension yesterday (requiring transfer to ) 2nd severe constipation/ileus * Will keep lower Lantus dose 2nd NPO status. Will need to increase back once diet re-ordered * Novolog now q6h at the previous lunch/dinner/bedtime regimen. Will need to tighten again w breakfast once diet re-ordered 12/26: * BSGs elevated yesterday, 171-289 mg/dL * Assuming hyperglycemia is related to inadequate basal insulin as it had been decreased a couple of days ago. Initially planned to increase basal today, but now patient with vomiting and severe abdominal pain likely related to constipation. He has been made NPO, so will decrease basal insulin today. 12/25: * Received total 43 units of insulin yesterday; 25 units basal and 18 units bolus. * Fasting BSG today was 224 mg/dl and compared to last couple of days, it is significantly elevated. HS Lantus dose increased slightly tonight. * BSGs yesterday 425-531-07-81 mg/dl. * Novolog parameters continued the same at breakfast but loosened for lunch, dinner and HS to prevent hypoglycemia in the evening. Background: * 66 yo M with T2DM admitted with a hip fracture on 12/18 and found to be profoundly hyperglycemic. History notable both for diabetic coma last year and also history of severe lows when on an insulin drip prior, per discussion with Josie Stephens (who obtained this information from a friend of the patient). Discussed risks/benefits of insulin drip given elevated anion gap - plan to initiate insulin drip with DKA protocol which includes reflex dextrose in IV once BSG's in goal range. Plan is to continue drip with dextrose containing fluids until tomorrow AM, when patient can hopefully be transitioned safely off of the drip. PLAN FOR INPATIENT GLYCEMIC CONTROL: * Hold outpatient oral diabetes medication (metformin) * Basal insulin * Lantus 10-15 units SC BID (see EHR for details) * Bolus insulin ACHS * Goal range 110-140 mg/dL * Correction factor: 20 mg/dL/unit with breakfast, 30 mg/dL/unit with lunch, dinner, bedtime * Carb ratio: 7 g CHO/unit with breakfast, 10 g CHO/unit with lunch, 9 g CHO/unit with dinner, bedtime
[2021-12-29] MEDS: AMIODARONE 200 MG TAB PO SCH ×2 (12:37→17:57)
--- NOTE | 2021-12-29 12:45 | Cardiology Progress Note ---
Date of Service December 29, 2021 Assessment & Plan (1) Paroxysmal SVT (supraventricular tachycardia): (2) Paroxysmal A-fib: Plan 1. SVT: He appears to have a reentrant SVT. He has frequent atrial ectopy and it appears that atrial ectopy starts the tachycardia. The episodes themselves can last for several minutes. He does not appear to have symptoms associated with the episodes. Undoubtedly he has been having these episodes for some time just documented now that he is in the hospital. Given the relatively brief duration of the episodes and his absence of symptoms he generally does not require treatment. However, there is some concern about his ability to participate in rehab or stay at rehab with periods of arrhythmia. As such, I think a temporary prescription for amiodarone may reduce the episodes and facilitate his participation in rehab. This can certainly be discontinued once he is back home. In order to prevent significant bradycardia over the next couple of weeks I would reduce his metoprolol in half. 2. atrial fibrillation: No atrial fibrillation documented during this hospitalization. Rare episodes previously associated with high adrenergic state. Not currently on anticoagulation. Admission and Anticipated Discharge Date Admission Date: December 18, 2021 Subjective this morning the patient did not verbalize any specific complaints. He reports being ambulatory at times. He denies symptoms of dizziness or palpitations. He has not been aware of any racing heartbeats. Review of Systems Review of Systems: Per HPI Physical Exam Physical Exam: The patient is alert and oriented. Mood and affect appeared normal. He answered all questions appropriately. HEENT: Pupils are equal and reactive to light and accommodation. Extraocular movements are intact. The sclerae are anicteric. Neuro: Cranial nerves intact lungs: Normal respiratory effort Results & Data ([facility]) Vital Signs (Past 12 Hours) Vital Signs Temp Pulse Pulse Resp BP Pulse Ox O2 Del Method 12/29/21 07:00 65 12/29/21 06:58 36.6 C 85 16 136/83 99 Room Air 12/29/21 04:00 36.8 C 63 18 119/76 98 Room Air Laboratory Results Abnormal Lab Results 12/28/21 12/28/21 12/29/21 16:31 21:33 05:57 WBC 5.96 RBC 2.78 L Hgb 8.5 L Hct 25.1 L MCV 90.3 MCH 30.6 MCHC 33.9 RDW Std Deviation 43.1 RDW Coeff of Robyn 13.3 Plt Count 251 MPV 8.5 L Sodium Potassium Chloride Carbon Dioxide Anion Gap BUN Creatinine Est Cr Clr Drug Dosing Est GFR ( Amer) Est GFR (Non-Af Amer) BUN/Creatinine Ratio Glucose POC Glucose 70 155 H Calcium 12/29/21 12/29/21 12/29/21 05:57 07:34 11:26 WBC RBC Hgb Hct MCV MCH MCHC RDW Std Deviation RDW Coeff of Robyn Plt Count MPV Sodium 139 Potassium 3.7 Chloride 108 H Carbon Dioxide 25 Anion Gap 6 BUN 13 Creatinine 0.63 Est Cr Clr Drug Dosing 135.0 Est GFR ( Amer) 119.0 Est GFR (Non-Af Amer) 102.7 BUN/Creatinine Ratio 20.6 H Glucose 140 H POC Glucose 156 H 207 H Calcium 8.2 L PG Care Time/CCT Total # of Minutes Spent Total Time Spent with Patient: Total time spent is greater than 50% in coordination of care (as documented) at patient's floor/unit and/or counseling patient: Coding Level of Care Code 19362 Subseq Hosp Care Lvl 2 Diagnoses Paroxysmal SVT (supraventricular tachycardia) I47.1 Paroxysmal A-fib I48.0
[2021-12-29] MEDS: oxyCODONE HCL IR 5 MG TAB (IMMEDIATE RELEASE) PO PRN (20:09)
[2021-12-29] MEDS: SENNA 8.6 MG TAB PO SCH (20:12)
[2021-12-29] MEDS: RIVAROXABAN 20 MG TAB PO SCH (20:12)
[2021-12-29] MEDS: TAMSULOSIN HCL 0.4 MG CAP PO SCH (20:12)
[2021-12-29] MEDS: ATORVASTATIN 40 MG TAB PO SCH (20:13)
--- NOTE | 2021-12-29 20:20 | Hospitalist Progress Note ---
Date of Service December 29, 2021 Assessment & Plan (1) Subcapital fracture of left hip: Plan: POD #9 - s/p ORIF by Dr Baker. recent 25-OH vit D level on 12/06/21 was 32. DVT proph - xarelto. pain control has been an issue most of the stay. I asked ortho to see again to ensure hardware, etc is intact. xrays performed today - wnl. ortho saw and feels things are stable. pain today was the best it has been since surgery. cont tylenol 1gm TID scheduled. cont oxycodone prn sparingly. (2) Acute blood loss anemia: Plan: 2nd to #1 above. H/H again acceptable today. B12, folate wnl. Fe studies wnl. Cont to trend. (3) Constipation: Plan: severe with impaction on CT 12/26 and on 12/27 KUB. no ileus or obstruction. resolved finally. cont bowel regimen - cont senna daily, miralax BID, and colace BID. (4) Paroxysmal SVT (supraventricular tachycardia): Plan: continues with episodes of SVT. rate control is poor even despite the metoprolol. echo with preserved EF. he is having 8-10 episodes/day of SVT. I am concerned that while at rehab if these episodes occur the rehab center will have low threshold to send back to ER. I spoke with Dr Nguyen - appreciate his input. Dr Nguyen advising amiodarone 400mg BID x 10 days, then 200mg daily thereafter. Cut metoprolol to 12.5mg BID. The amio will be temporary - mainly for while he is at rehab. (5) Paroxysmal A-fib: Plan: First diagnosed in 2020. Remains on Xarelto. Remains on metoprolol. No a.fib seen on tele since admission. Echo wnl. Appreciate cardiology consult from Dr Nguyen. (6) Hypertension: Plan: amlodipine, lisinopril, HCTZ all on hold and BPs still are stable. no need for above meds likely due to acute blood loss anemia. cont metoprolol BID. (7) Hyperlipidemia: Plan: Continue statin. (8) Hypothyroidism: Plan: Continue Levothyroxine. TSH 08/2021 wnl. (9) Diabetes mellitus type 2, uncontrolled: Plan: appreciate pharmacy glycemic consult & recs/management. remains on basal-bolus insulin with satisfactory control. recent Hba1c 8.5% patient follows with Megan Caponeor - educator senior clinical - at endo clinic. (10) Hypomagnesemia: Plan: replaced resolved (11) Hypophosphatemia: Plan: repleted resolved (12) Mild cognitive impairment: Plan: noted does have periods of confusion but no agitation otherwise stable (13) DVT prophylaxis: Plan: Xarelto (14) Renal lesion: Plan: per CT - "1.6 cm right renal lesion. This may reflect a cyst although is indeterminate. Nonemergent renal ultrasound is recommended." defer u/s to outpatient setting Plan updated Ms Neli - pt's contact listed in chart - by phone 12/27 extensive update given at that time if no significant SVT overnight perhaps d/c to rehab tomorrow? Admission and Anticipated Discharge Date Admission Date: December 18, 2021 Subjective tele - continued episodes of SVT - asymptomatic will break with vagal maneuvers (nursing will coach builder him through the vagal maneuvers and they will break) he feels good today had another BM this am eating well left hip pain improved no other concerns from staff Review of Systems Review of Systems: cv - no cp pulm - no cough, no dyspnea GI - no abd pain, nausea or emesis Physical Exam Physical Exam: gen - NAD, best he has looked all week mouth - MMM neck - no JVD heart - RRR, s1 s2, no murmur lungs - CTA b/l, no rales abd - soft NT ND BS+ musculo - left thigh with mild edema - improved, however ext - no ankle edema, pulses 2+ b/l Results & Data Results & Data ([facility]) Vital Signs (Past 12 Hours) Vital Signs Temp Pulse Resp BP Pulse Ox O2 Del Method 12/29/21 19:02 36.7 C 75 18 141/82 H 95 Room Air 12/29/21 14:00 36.5 C Laboratory Results Laboratory Results - last 24 hr 12/28/21 12/29/21 12/29/21 21:33 05:57 05:57 WBC 5.96 RBC 2.78 L Hgb 8.5 L Hct 25.1 L MCV 90.3 MCH 30.6 MCHC 33.9 RDW Std Deviation 43.1 RDW Coeff of Robyn 13.3 Plt Count 251 MPV 8.5 L Sodium 139 Potassium 3.7 Chloride 108 H Carbon Dioxide 25 Anion Gap 6 BUN 13 Creatinine 0.63 Est Cr Clr Drug Dosing 135.0 Est GFR ( Amer) 119.0 Est GFR (Non-Af Amer) 102.7 BUN/Creatinine Ratio 20.6 H Glucose 140 H POC Glucose 155 H Calcium 8.2 L 12/29/21 12/29/21 12/29/21 07:34 11:26 16:36 WBC RBC Hgb Hct MCV MCH MCHC RDW Std Deviation RDW Coeff of Robyn Plt Count MPV Sodium Potassium Chloride Carbon Dioxide Anion Gap BUN Creatinine Est Cr Clr Drug Dosing Est GFR ( Amer) Est GFR (Non-Af Amer) BUN/Creatinine Ratio Glucose POC Glucose 156 H 207 H 71 Calcium PG Care Time/CCT Total # of Minutes Spent Total Time Spent with Patient: Total time spent is greater than 50% in coordination of care (as documented) at patient's floor/unit and/or counseling patient: Coding Level of Care Code 87771 Subseq Hosp Care Lvl 3 Diagnoses Subcapital fracture of left hip S72.012A Encounter type: initial encounter Fracture type: closed Acute blood loss anemia D62 Constipation K59.00 Paroxysmal SVT (supraventricular tachycardia) I47.1 Paroxysmal A-fib I48.0 Hypertension I10 Hypertension type: unspecified Hyperlipidemia E78.5 Hypothyroidism E03.9 Diabetes mellitus type 2, uncontrolled Hypomagnesemia E83.42 Hypophosphatemia E83.39 Mild cognitive impairment G31.84 DVT prophylaxis Z29.9 Renal lesion N28.9 (1) Subcapital fracture of left hip Encounter type: initial encounter Fracture type: closed Qualified Code(s): S72.012A - Unspecified intracapsular fracture of left femur, initial encounter for closed fracture (2) Hypertension Hypertension type: unspecified Qualified Code(s): I10 - Essential (primary) hypertension
[2021-12-30] MEDS: ACETAMINOPHEN 500 MG TAB PO SCH ×3 (06:10→21:46)
[2021-12-30] MEDS: LEVOTHYROXINE SODIUM 125 MCG TABLET PO SCH (06:11)
--- NOTE | 2021-12-30 07:30 | Communication Note ---
Date of Service: December 30, 2021 ATSP for c/o pain when log rolling or when trying to move the patient. New XRays reviewed by myself and Dr. Howell. No fractures noted. No dislocation. Pt seen by Dr. Howell last night. Pt was pleasant and in no apparent distress. Leg lengths equal. Wound benign. Unsure of pt's source of pain other than current surgery? No further ortho input per Dr. Howell. Continue PT/OT as able.
[2021-12-30] MEDS: INSULIN ASPART PER UNIT SC SCH ×4 (08:14→20:35)
[2021-12-30] MEDS: LANTUS PER UNIT CHARGE SQ SCH ×2 (08:15→20:36)
[2021-12-30] MEDS: POLYETHYLENE (MIRALAX) 17 GM PACK PO SCH ×2 (08:50→20:26)
[2021-12-30] MEDS: MULTIVITAMIN TAB PO SCH (08:52)
[2021-12-30] MEDS: METOPROLOL TARTRATE 25 MG TAB PO SCH ×2 (08:52→20:26)
[2021-12-30] MEDS: AMIODARONE 200 MG TAB PO SCH ×2 (08:52→17:10)
[2021-12-30] MEDS: NICOTINE 21 MG/24 HR TDSY TD SCH (08:52)
[2021-12-30] MEDS: MAGNESIUM OXIDE 400 MG TAB PO SCH ×2 (08:57→20:42)
[2021-12-30] MEDS: bisacodyL 10 MG SUPP PR SCH (08:57)
[2021-12-30] MEDS: DOCUSATE SODIUM 100 MG CAP PO SCH ×2 (08:58→20:34)
--- NOTE | 2021-12-30 09:09 | Pharmacy Report ---
Pharmacy Glycemic Short Note 2 - Date of Service December 30, 2021 - Glycemic Short BSG Results (Last 24 hours): 12/29/21 12/29/21 12/29/21 11:26 16:36 20:20 POC Glucose 207 H 71 170 H 12/30/21 07:21 POC Glucose 88 OUTPATIENT ANTIDIABETIC REGIMEN: * Lantus 15 units SC BID * Novolog 03/12/13 units TIDM, plus sliding scale with correction factor of 35 mg/dL/unit * Metformin 500 mg PO BIDM * HbA1c = 8.5% (12/06/21) ASSESSMENT: 12/30: * Stressors stable * AM fasting BSG decreased. Will decrease Lantus * Repeat post-prandial near hypoglycemic event yesterday at dinner. Will loosen correction factor and CHO ratio with lunch further. * Repeat post-prandial hyperglycemia > 180mg/dL, similar to previous during this admission. Will tighten breakfast CHO ratio 12/29: * Stressors stable * AM fasting BSG increasing notably. Will increase Lantus * Post-prandial near hypoglycemic event yesterday at dinner. Will loosen CHO ratio with lunch. 12/28: * Diet resumed last night * AM fasting BSG below goal range - will decrease Lantus * Will resume prior Novolog regimen, with tighter parameters at breakfast. 12/27: * Now NPO until BM occurs - severe orthostatic hypotension yesterday (requiring transfer to ) 2nd severe constipation/ileus * Will keep lower Lantus dose 2nd NPO status. Will need to increase back once diet re-ordered * Novolog now q6h at the previous lunch/dinner/bedtime regimen. Will need to tighten again w breakfast once diet re-ordered 12/26: * BSGs elevated yesterday, 171-289 mg/dL * Assuming hyperglycemia is related to inadequate basal insulin as it had been decreased a couple of days ago. Initially planned to increase basal today, but now patient with vomiting and severe abdominal pain likely related to constipation. He has been made NPO, so will decrease basal insulin today. 12/25: * Received total 43 units of insulin yesterday; 25 units basal and 18 units bolus. * Fasting BSG today was 224 mg/dl and compared to last couple of days, it is significantly elevated. HS Lantus dose increased slightly tonight. * BSGs yesterday 469-215-34-81 mg/dl. * Novolog parameters continued the same at breakfast but loosened for lunch, dinner and HS to prevent hypoglycemia in the evening. Background: * 66 yo M with T2DM admitted with a hip fracture on 12/18 and found to be profoundly hyperglycemic. History notable both for diabetic coma last year and also history of severe lows when on an insulin drip prior, per discussion with Jsoie Stephens (who obtained this information from a friend of the patient). Discussed risks/benefits of insulin drip given elevated anion gap - plan to initiate insulin drip with DKA protocol which includes reflex dextrose in IV once BSG's in goal range. Plan is to continue drip with dextrose containing fluids until tomorrow AM, when patient can hopefully be transitioned safely off of the drip. PLAN FOR INPATIENT GLYCEMIC CONTROL: * Hold outpatient oral diabetes medication (metformin) * Basal insulin * Lantus 12 units SC BID * Bolus insulin ACHS * Goal range 110-140 mg/dL * Correction factor: 20 mg/dL/unit with breakfast, 35 mg/dL/unit with lunch, 30 mg/dL/unit with dinner, bedtime * Carb ratio: 6 g CHO/unit with breakfast, 12 g CHO/unit with lunch, 9 g CHO/unit with dinner, bedtime
--- NOTE | 2021-12-30 18:57 | Hospitalist Progress Note ---
Date of Service December 30, 2021 Assessment & Plan (1) Subcapital fracture of left hip: Plan: POD #10 - s/p ORIF by Dr Baker. recent 25-OH vit D level on 12/06/21 was 32. DVT proph - xarelto. pain control had been an issue much of the stay but it has really improved nicely in the last 48 hours. repeat x-rays 12/29 with intact hardware. orthopedics saw patient- they are satisfied with his incision, x-rays, etc. cont tylenol 1gm TID scheduled. cont oxycodone prn sparingly. (2) Acute blood loss anemia: Plan: 2nd to #1 above. repeat cbc in am for stability. B12, folate wnl. Fe studies wnl. (3) Constipation: Plan: severe with impaction on CT 12/26 and on 12/27 KUB. no ileus or obstruction. resolved cont bowel regimen - cont senna daily, miralax BID, and colace BID. (4) Paroxysmal SVT (supraventricular tachycardia): Plan: continues with episodes of SVT but frequency MUCH IMPROVED today. had been having 10+ episodes/day of asymptomatic SVT. echo with preserved EF. Dr Nguyen from [facility] cardiology reconsulted as I was concerned that if he had frequent SVT at rehab he may wind back up in our ER or readmitted due to such. Thus, Dr Nguyen initiated amiodarone 400mg BID x 10 days, then 200mg daily thereafter. Cont metoprolol to 12.5mg BID. The amio will be temporary - mainly for while he is at rehab. Thus far amiodarone is helping nicely. Cont tele overnight. (5) Paroxysmal A-fib: Plan: First diagnosed in 2020. Remains on Xarelto. Remains on metoprolol. No a.fib seen on tele since admission. Echo wnl. Appreciate cardiology consult from Dr Nguyen. (6) Hypertension: Plan: amlodipine, lisinopril, HCTZ all on hold and BPs still are stable. no need for above meds -- likely due to acute blood loss anemia. cont metoprolol 12.5mg BID. (7) Hyperlipidemia: Plan: Continue statin. (8) Hypothyroidism: Plan: Continue Levothyroxine. TSH 08/2021 wnl. TSH again today wnl. (9) Diabetes mellitus type 2, uncontrolled: Plan: appreciate pharmacy glycemic consult & recs/management. remains on basal-bolus insulin with satisfactory control. recent Hba1c 8.5% patient follows with Megan Tony - clinical nurse educator - at endo clinic. will need f/u with her post-d/c. (10) Hypomagnesemia: Plan: replaced resolved (11) Hypophosphatemia: Plan: repleted resolved (12) Mild cognitive impairment: Plan: noted does have periods of confusion but no agitation otherwise stable (13) DVT prophylaxis: Plan: Xarelto (14) Renal lesion: Plan: per CT - "1.6 cm right renal lesion. This may reflect a cyst although is indeterminate. Nonemergent renal ultrasound is recommended." defer u/s to outpatient setting Plan updated Ms Quinteros - pt's contact listed in chart - by phone 12/27 and again this evening told her that if he has good night and SVT is minimal/acceptable can go to rehab on 12/31 Admission and Anticipated Discharge Date Admission Date: December 18, 2021 Subjective patient without complaints today L hip pain much improved continues to pass flatus and stool eating well tele with ongoing SVT but frequency of events much less by late afternoon today he had had only 2 brief runs of SVT, both lasting a minute or 2 only, and self-terminating continues to have NO symptoms from these spells no concerns from nursing Review of Systems Review of Systems: cv - no orthopnea, cp or palpitations pulm - no dyspnea GI - no pain or nausea - episodes of incontinence Physical Exam Physical Exam: gen - NAD, looks very good; watching TV mouth - MMM neck - no JVD heart - RRR, s1 s2, no murmur lungs - CTA b/l, no rales abd - soft NT ND BS+ musculo - left thigh with mild edema - improved ext - no ankle edema, pulses 2+ b/l Results & Data Results & Data ([facility]) Vital Signs (Past 12 Hours) Vital Signs Temp Pulse Pulse Resp BP BP Pulse Ox 12/30/21 15:06 36.6 C 69 19 113/63 96 12/30/21 11:24 36.7 C 66 17 126/78 98 12/30/21 10:53 72 12/30/21 07:20 36.8 C 79 16 127/78 98 O2 Del Method 12/30/21 15:06 Room Air 12/30/21 11:24 Room Air 12/30/21 10:53 12/30/21 07:20 Room Air Laboratory Results Laboratory Results - last 24 hr 12/29/21 12/30/21 12/30/21 20:20 05:54 07:21 POC Glucose 170 H 88 TSH 3.373 12/30/21 12/30/21 11:07 16:10 POC Glucose 195 H 138 H TSH PG Care Time/CCT Total # of Minutes Spent Total Time Spent with Patient: Total time spent is greater than 50% in coordination of care (as documented) at patient's floor/unit and/or counseling patient: Coding Level of Care Code 91169 Subseq Hosp Care Lvl 2 Diagnoses Subcapital fracture of left hip S72.012A Encounter type: initial encounter Fracture type: closed Acute blood loss anemia D62 Constipation K59.00 Paroxysmal SVT (supraventricular tachycardia) I47.1 Paroxysmal A-fib I48.0 Hypertension I10 Hypertension type: unspecified Hyperlipidemia E78.5 Hypothyroidism E03.9 Diabetes mellitus type 2, uncontrolled Hypomagnesemia E83.42 Hypophosphatemia E83.39 Mild cognitive impairment G31.84 DVT prophylaxis Z29.9 Renal lesion N28.9 (1) Subcapital fracture of left hip Encounter type: initial encounter Fracture type: closed Qualified Code(s): S72.012A - Unspecified intracapsular fracture of left femur, initial encounter for closed fracture (2) Hypertension Hypertension type: unspecified Qualified Code(s): I10 - Essential (primary) hypertension
[2021-12-30] MEDS: ATORVASTATIN 40 MG TAB PO SCH (20:26)
[2021-12-30] MEDS: TAMSULOSIN HCL 0.4 MG CAP PO SCH (20:26)
[2021-12-30] MEDS: RIVAROXABAN 20 MG TAB PO SCH (20:26)
[2021-12-30] MEDS: SENNA 8.6 MG TAB PO SCH (20:27)
[2021-12-30] MEDS: oxyCODONE HCL IR 5 MG TAB (IMMEDIATE RELEASE) PO PRN (20:34)
[2021-12-31] MEDS: LEVOTHYROXINE SODIUM 125 MCG TABLET PO SCH (05:25)
[2021-12-31] MEDS: ACETAMINOPHEN 500 MG TAB PO SCH ×2 (05:26→14:51)
[2021-12-31 06:26] LABS: Hematocrit (blood only) 25.5 % (40.1-51.0); Hemoglobin 8.7 g/dl (14.0-18.0); Mean Corpuscular Hemoglobin 30.5 pg (25.0-34.0); Mean Corpuscular Hgb Conc 34.1 g/dL (32.0-36.0); Mean Corpuscular Volume 89.5 fL (80.0-100.0); Mean Platelet Volume 8.5 fL (9.4-12.4); Platelet Count 233 K/uL (130-400); RDW Coefficient of Variation 13.8 % (11.5-14.5); RDW Standard Deviation 43.7 fL (36.4-46.3); Red Blood Count 2.85 M/uL (4.63-6.08); White Blood Count 5.59 K/ul (4.8-10.8)
[2021-12-31 07:30] LABS: BUN Creatinine Ratio 20.3 (10-20); Calcium 8.2 mg/dl (8.5-10.1); Creatinine Clr Calc Pharmacy 107.7 ml/min; Est GFR (African American) 108.5 ml/min; Est GFR (Non-African American) 93.6 ml/min; Potassium 3.5 mmol/L (3.5-5.1)
[2021-12-31] MEDS ORDERED: POTASSIUM CHLORIDE CRTAB 20 MEQ TABCR PO STA (07:45)
[2021-12-31] MEDS: POLYETHYLENE (MIRALAX) 17 GM PACK PO SCH (08:20)
[2021-12-31] MEDS: bisacodyL 10 MG SUPP PR SCH (08:21)
[2021-12-31] MEDS: METOPROLOL TARTRATE 25 MG TAB PO SCH (08:21)
[2021-12-31] MEDS: MULTIVITAMIN TAB PO SCH (08:22)
[2021-12-31] MEDS: NICOTINE 21 MG/24 HR TDSY TD SCH (08:22)
[2021-12-31] MEDS: MAGNESIUM OXIDE 400 MG TAB PO SCH (08:23)
[2021-12-31] MEDS: INSULIN ASPART PER UNIT SC SCH ×2 (08:23→12:12)
[2021-12-31] MEDS: AMIODARONE 200 MG TAB PO SCH (08:24)
[2021-12-31] MEDS: DOCUSATE SODIUM 100 MG CAP PO SCH (08:26)
[2021-12-31] MEDS: traMADol HCL 50 MG TABLET PO PRN ×2 (08:50→13:12)
[2021-12-31] MEDS ORDERED: LANTUS PER UNIT CHARGE SQ SCH (09:00)
--- NOTE | 2021-12-31 15:26 | Discharge Summary ---
Date of Service December 31, 2021 Admission HPI Per Admitting Provider Lars Kumar is a 66-year-old male with past medical history significant for paroxysmal A. fib on Xarelto, hypertension, hyperlipidemia, DM2, hypothyroidism, and heavy tobacco chew use who presents today from [facility] this morning after a fall. He apparently fell out of bed and was found on the floor by staff this morning. He denies loss of consciousness or hitting his head, he does not have any neck or back pain and denies a headache but does have very severe pain in his left buttocks when standing. Due to pain, his mobility in the left leg is limited. No pain in the right leg and is able to move this without difficulty. X-ray of the left hip does show a subcapital left hip fracture. X- ray of the left knee does not show any fracture or dislocation at this level. Discharge Exam gen - NAD, looks very good; watching TV mouth - MMM neck - no JVD heart - RRR, s1 s2, no murmur lungs - CTA b/l, no rales abd - soft NT ND BS+ musculo - left thigh with mild edema - improved ext - no ankle edema, pulses 2+ b/l Discharge Data Allergies Allergy/AdvReac Type Severity Reaction Status Date / Time No Known Allergies Allergy Verified 09/16/21 09:49 Consultations 12/18/21 21:04 Consult Cardiology Routine Procedures Performed Operation Date: 12/20/21 07:00 Actual Procedures p Left Total Hip Arthroplasty-Uncemented(Left) - Jeremy Baker, Ordered Studies 12/18/21 08:21 CT head/brain wo con Stat 12/26/21 12:41 CT Abd and Pelvis [CT abd pelvis wo con] Stat Hospital Course (1) Subcapital fracture of left hip: POD #10 - s/p ORIF by Dr Baker. recent 25-OH vit D level on 12/06/21 was 32. DVT proph - xarelto. pain control had been an issue much of the stay but it has really improved nicely in the last 48 hours. repeat x-rays 12/29 with intact hardware. orthopedics saw patient- they are satisfied with his incision, x-rays, etc. cont tylenol 1gm TID scheduled. cont oxycodone prn sparingly. (2) Acute blood loss anemia: 2nd to #1 above. repeat cbc in am for stability. B12, folate wnl. Fe studies wnl. (3) Constipation: severe with impaction on CT 12/26 and on 12/27 KUB. no ileus or obstruction. resolved cont bowel regimen - cont senna daily, miralax BID, and colace BID. (4) Paroxysmal SVT (supraventricular tachycardia): continues with episodes of SVT but frequency MUCH IMPROVED today. had been having 10+ episodes/day of asymptomatic SVT. echo with preserved EF. Dr Nguyen from [facility] cardiology reconsulted as I was concerned that if he had frequent SVT at rehab he may wind back up in our ER or readmitted due to such. Thus, Dr Nguyen initiated amiodarone 400mg BID x 10 days, then 200mg daily thereafter. Cont metoprolol to 12.5mg BID. The amio will be temporary - mainly for while he is at rehab. Thus far amiodarone is helping nicely. Cont tele overnight. (5) Paroxysmal A-fib: First diagnosed in 2020. Remains on Xarelto. Remains on metoprolol. No a.fib seen on tele since admission. Echo wnl. Appreciate cardiology consult from Dr Nguyen. (6) Hypertension: amlodipine, lisinopril, HCTZ all on hold and BPs still are stable. no need for above meds -- likely due to acute blood loss anemia. cont metoprolol 12.5mg BID. (7) Hyperlipidemia: Continue statin. (8) Hypothyroidism: Continue Levothyroxine. TSH 08/2021 wnl. TSH again today wnl. (9) Diabetes mellitus type 2, uncontrolled: appreciate pharmacy glycemic consult & recs/management. remains on basal-bolus insulin with satisfactory control. recent Hba1c 8.5% patient follows with Megan Tony - clinical document improvement educator - at endo clinic. will need f/u with her post-d/c. (10) Hypomagnesemia: replaced resolved (11) Hypophosphatemia: repleted resolved (12) Mild cognitive impairment: noted does have periods of confusion but no agitation otherwise stable (13) DVT prophylaxis: Xarelto (14) Renal lesion: per CT - "1.6 cm right renal lesion. This may reflect a cyst although is indeterminate. Nonemergent renal ultrasound is recommended." defer u/s to outpatient setting Plan updated Ms Quinteros - pt's contact listed in chart - by phone 12/27 and again this evening told her that if he has good night and SVT is minimal/acceptable can go to rehab on 12/31 Discharge Plan Discharge Items Patient Disposition: Transfer Inpatient Rehab Fac Reason For Visit: L HIP FRACTURE Discharge Diagnosis: 1. Left Displaced Hip Fracture s/p ORIF by Dr Jeremy Baker on 12/20/21 2. Recurrent SVT now on amiodarone 3. Severe fecal impaction/constipation - resolved 4. Uncontrolled Diabetes - improved 5. Left-sided Renal Lesion - dedicated renal u/s needed in the near-future 6. H/O paroxysmal a.fib 7. Prior h/o alcoholism 8. Hypothyroidism 9. Acute blood loss anemia due to #1 - discharge hemoglobin 8.7 Activity: Per Instructions section Weightbearing: Full weightbearing Weightbearing Comment: weight-bearing as tolerated on left leg Non-emergency contact: Primary Care Provider and Surgeon Call non-emergency contact if: you have any medication questions, your pain is not controlled, you have a fever, your wound has increased redness and your wound has increased drainage Follow-up/Referrals: Tash Tony CRNP, CDE [Nurse Practitioner] - (within 2 weeks - for uncontrolled diabetes ) Jeremy Nguyen MD [Physician] - (7-10 days for SVT ) Jg Valdez DO [Primary Care Provider] - (within 1 week of discharge from [facility] ) Jeremy Baker DO [Physician] - (Follow up with Dr. Baker in 5 days) Diet: Carb Consistent or DM2 Addtl Attending Provider Instructions: Patient was hospitalized for severe hyperglycemia and fall resulting in a left hip fracture. He underwent operative repair of the left hip on 12/20/21. He will need to see Dr Hermes Baker in about 5 days post-discharge. His stay was complicated by severe pain of the left hip, severe constipation/impaction, and episodes of SVT. All issues have improved while here. Regarding Mr Kumar's SVT episodes -- these episodes are typically short-lived (usually less than 5 minutes) and either terminate spontaneously OR he blows through a straw (or puffs his cheeks) to perform a vagal maneuver. With vagal maneuvers his episodes quickly resolve. HE IS NOT SYMPTOMATIC FROM HIS SVT. HE IS UNAWARE OF HIS SVT UNLESS WE TELL HIM HE IS IN IT. He has been seen by [facility] and initiated on amiodarone for the SVT. He will need to follow-up with Dr Jeremy Nguyen within 7-10 days of discharge for the SVT. Recommendations - 1. BSGs ac/hs 2. Repeat CBC, BMP, and mag in 2-3 days for stability Addtl Biomedical Equipment Specialist Provider Instructions: ACTIVITY RECOMMENDATIONS: SELF CARE INSTRUCTIONS AFTER TOTAL HIP REPLACEMENT Until the incision and soft tissues around your hip have healed, there is a possibility that the hip prosthesis could dislocate. A. Observe the following precautions to prevent dislocation: 1. Don't bend your hip greater than 90 degrees. 2. Avoid crossing your legs or ankles while standing or lying. 3. Sit with your feet placed 6 inches apart. 4. When sitting, keep your knees below your hips. Sit on a firm surface, avoid deep, soft chairs and couches. Use an elevated toilet seat in the bathroom. 5. Don't bend over at the waist. Use a long handled shoehorn and a sock aid to help you put on your shoes and socks. A food science technician can help you tile picker objects that are too high or too low to reach. 6. Keep car riding to a minimum for at least one month after surgery. B. Your balance may be shaky for a while. Use crutches or a walker until directed by your doctor. C. Use hand rails when walking on stairs. D. Wear low heeled shoes with non-slip soles. E. Be sure that your floors are free of things that could trip you - throw rugs, electrical cords, small objects. Avoid wet and waxed floors, especially with crutches and canes. F. Try to walk several times a day with rest periods between. G. Continue with all the exercises taught to you in the hospital. Again, make walking a part of your daily routine. SPECIAL CARE INSTRUCTIONS: VERY IMPORTANT TO READ AND REVIEW A. You may still be at risk for phlebitis and blood clots. 1. Wear surgical stockings (OTONIEL hose) for 2 weeks after surgery to improve circulation and reduce swelling. 2. Take XARELTO 20MG daily or as directed by your doctor. This is your blood thinner. B. You must take antibiotics before having dental work, bladder, bowel and other surgery. Your doctor will provide you with a permanent card to carry describing precautions. C. Call [facility] if you have a fever, redness or swelling around the incision, cloudy drainage from incision, or sudden increase in pain in your hip, not relieved by your regular pain medication. D. Please call the office at if you have any concerns or questions about your operation or recovery. * YOU MAY SHOWER, NO TUB BATHS UNTIL CLEARED BY YOUR DOCTOR. * WEAR OTONIEL HOSE 20 HOURS PER DAY FOR 2 WEEKS. * YOU SHOULD USE A WALKER OR CRUTCHES FOR 2-4 WEEKS. THIS WILL HELP PREVENT STRAIN ON YOUR HIP MUSCLE AND ALLOW IT TO HEAL PROPERLY. YOU MAY WEAN TO A CANE TOLERATED. * MOST PATIENTS WILL HAVE HOME NURSING FOR THERAPY. IF YOU DECIDE TO DO OUTPATIENT PHYSICAL THERAPY, PLEASE SCHEDULE THIS 3 TIMES PER WEEK. * YOU MAY HAVE A LARGE, BAND-AID LIKE DRESSING (SILVERON). THIS WILL REMAIN ON YOUR INCISION FOR 7 DAYS, THEN CAN BE REMOVED. IF INCISION IS LEAKING THROUGH DRESSING, PLEASE CALL THE OFFICE . FOLLOW UP VISIT: 5 days after discharge from [facility] Pending Studies at Discharge: No Stand-Alone Forms: My [facility] Skilled Items Patient informed of condition?: Yes DNR: No Discharge Level of Care: Acute rehab Communicable Disease: No Discharge Prognosis: Stable Lines: None Urinary Catheter: No Medications and DC Order Prescriptions: New nicotine [Nicoderm CQ] 21 mg/24 hr Patch 24 Hour 21 mg transdermal QAM Qty: 28 0RF amiodarone 200 mg Tablet 200 mg PO DIRECTED Qty: 60 0RF Rx Instructions: 400mg PO BID x 8 days; then 200mg po qdaily thereafter. acetaminophen [Tylenol Extra Strength] 500 mg Tablet 1,000 mg PO Q8 10 Days Qty: 60 0RF tamsulosin 0.4 mg Capsule 0.4 mg PO HS Qty: 30 2RF sennosides [Senokot] 8.6 mg Tablet 17.2 mg PO HS Qty: 30 0RF oxycodone 5 mg Tablet 5 mg PO Q6H PRN (Reason: pain) Qty: 10 0RF multivitamin with folic acid [Daily-Yaquelin (with folic acid)] 400 mcg Tablet 1 tab PO QAM Qty: 30 2RF cholecalciferol (vitamin D3) 50 mcg (2,000 unit) capsule 2,000 unit PO DAILY Qty: 30 2RF Continued (DME) Wheeled Walker Misc See Rx Instructions .Route Qty: 1 0RF Rx Instructions: As directed. with seat if possible potassium chloride 20 mEq tablet,ER particles/crystals 20 meq PO DAILY Qty: 90 3RF magnesium oxide 400 mg magnesium tablet 400 mg PO DAILY Qty: 30 11RF (DME) Novofine Autocover 30 gauge x 1/3" needle See Rx Instructions .Route Qty: 100 11RF Rx Instructions: use for insulin injection atorvastatin 40 mg tablet 40 mg PO QPM Qty: 90 3RF levothyroxine 125 mcg tablet 125 mcg PO DAILY Qty: 30 11RF Xarelto 20 mg tablet 20 mg PO HS Qty: 30 11RF quetiapine 25 mg tablet 12.5 mg PO HS PRN (Reason: Psychosis) Rx Instructions: 25 mg PO TAKE 1/2 TABLET AT BEDTIME FOR PSYCHOSIS; Changed insulin aspart U-100 [Novolog Flexpen U-100 Insulin] 100 unit/mL (3 mL) insulin pen See Rx Instructions .ROUTE .COMPLEX Qty: 1 0RF Rx Instructions: Novolog supplemental sliding scale. Use at & HS. BSG goal range - 110-150. Correction factor - 30. Carbohydrate ratio - 1 unit of novolog for every 10 grams of carbohydrates consumed. metoprolol tartrate 25 mg tablet 12.5 mg PO BIDM Qty: 60 11RF insulin glargine [Lantus Solostar U-100 Insulin] 100 unit/mL (3 mL) insulin pen 25 unit subcut QAM 30 Days Qty: 9 3RF polyethylene glycol 3350 [Miralax] 17 gram/dose powder 17 g PO BID Qty: 850 11RF Discontinued acetaminophen 325 mg capsule 650 mg PO Q6H PRN (Reason: Pain) Qty: 90 5RF Rx Instructions: 325 mg PO Q6H PRN; diclofenac sodium 75 mg tablet,delayed release (DR/EC) 75 mg PO BID PRN (Reason: pain) Qty: 60 0RF lisinopril 40 mg tablet 40 mg PO DAILY Qty: 30 11RF metformin 500 mg tablet extended release 24hr 500 mg PO BIDM Qty: 60 11RF amlodipine 2.5 mg tablet 5 mg PO DAILY Qty: 180 3RF triamterene-hydrochlorothiazid 37.5-25 mg tablet 1 tab PO DAILY Qty: 90 3RF Discharge Orders: Discharge Order (Routine); Ordered 12/31/21 Ordered By: Stevo Mc Admission Data Admit Date/Time: 12/18/21 10:45 Attending Provider: Stevo Mc Admit Provider: Josie Stephens Primary Care Provider: Jg Valdez Other Providers: [facility] ; [place],[facility] ; Jeremy Nguyen Coding Diagnoses Subcapital fracture of left hip S72.012A Encounter type: initial encounter Fracture type: closed Acute blood loss anemia D62 Constipation K59.00 Paroxysmal SVT (supraventricular tachycardia) I47.1 Paroxysmal A-fib I48.0 Hypertension I10 Hypertension type: unspecified Hyperlipidemia E78.5 Hypothyroidism E03.9 Diabetes mellitus type 2, uncontrolled Hypomagnesemia E83.42 Hypophosphatemia E83.39 Mild cognitive impairment G31.84 DVT prophylaxis Z29.9 Renal lesion N28.9
== END 2021-12-31 16:00 | DRG 522 ==
LOC: ED 08:09 → 3W 10:45 → SUATTDRO 10:45 → 3W 11:39 → 2E 15:20 → 3N 12-23 21:40 → 2E 12-26 13:31

== ENCOUNTER 2022-06-11 09:50 | Inpatient (IN) ==
--- NOTE | 2022-06-11 10:26 | Emergency Department Note ---
History of Present Illness General Chief complaint: Knee Injury/Pain Stated complaint: LEFT KNEE PAIN, SWELLING Time Seen by Provider: 06/11/22 09:59 History of Present Illness Maximum Pain Intensity: 4 This is a 67-year-old male that presents to the emergency department via private vehicle accompanied by female with complaints of "left knee pain, swelling". Patient presents with friend, Guerline. Patient notes that for the past few days he has been experiencing left knee pain and swelling. No known trauma or injury however it was stated that there may have been a fall. The patient does live at [facility]. He is currently on anticoagulants. Patient denies striking the head or loss of consciousness. No headache or neck pain. No chest pain or shortness of breath. No abdominal pain. No back pain. Patient does at baseline have a mildly impaired gait and is performing physical therapy. It is also noted that status post left hip surgery he is also noted to have left lower extremity edema mostly in the ankle which is not new. No reports of fevers, chills, nausea or vomiting. No cough. Home Medications Medication Instructions Recorded Confirmed Type Wheeled Walker #1 ea 03/21/21 06/11/22 Rx atorvastatin 40 mg tablet 40 mg PO QPM #90 tabs 01/23/22 06/11/22 Rx cholecalciferol (vitamin D3) 50 2,000 unit PO DAILY #90 caps 01/23/22 06/11/22 Rx mcg (2,000 unit) capsule insulin glargine 100 unit/mL (3 22 unit (0.22 mL) subcut QAM 90 01/23/22 06/11/22 Rx mL) subcutaneous pen (Lantus days #19.8 mL Solostar U-100 Insulin) levothyroxine 125 mcg tablet 125 mcg PO DAILY #30 tabs 01/23/22 06/11/22 Rx lidocaine 5 % topical patch 2 patch topical DAILY #30 ea 01/23/22 06/11/22 Rx magnesium oxide 400 mg PO DAILY #30 tabs 01/23/22 06/11/22 Rx metoprolol tartrate 25 mg tablet 12.5 mg PO BIDM #60 tabs 01/23/22 06/11/22 Rx polyethylene glycol 3350 17 17 g PO DAILY #850 grams 01/23/22 06/11/22 Rx gram/dose oral powder (Miralax) potassium chloride 20 mEq 20 meq PO DAILY #90 tabs 01/23/22 06/11/22 Rx tablet,extended release(part/cryst) quetiapine 25 mg tablet 12.5 mg PO HS PRN Psychosis #30 01/23/22 06/11/22 Rx tabs rivaroxaban 20 mg tablet (Xarelto) 20 mg PO HS #30 tabs 01/23/22 06/11/22 Rx tamsulosin 0.4 mg capsule 0.4 mg PO HS #30 caps 01/23/22 06/11/22 Rx acetaminophen 500 mg tablet 500 mg PO Q12H #60 tabs 02/13/22 06/11/22 Rx metformin 500 mg tablet,extended 500 mg PO BID #180 tabs 02/17/22 06/11/22 Rx release 24 hr tramadol 50 mg tablet 50 mg PO TID pain #90 tabs 04/11/22 06/11/22 Rx Rytary 23.75 mg-95 mg 1 cap PO TID 30 days #90 caps 04/14/22 06/11/22 Rx capsule,extended release (carbidopa-levodopa) insulin aspart U-100 100 unit/mL 6 unit (0.06 mL) subcut TID #30 mL 05/10/22 06/11/22 Rx (3 mL) subcutaneous pen (Novolog FlexPen U-100 Insulin aspart) pen needle, diabetic, safety 30 #120 ea 05/12/22 06/11/22 Rx gauge x 1/3" (Novofine Autocover) Wheelchair (Manual) #1 ea 05/19/22 06/11/22 Rx lancets 21 gauge (ReadyLance #200 ea 06/06/22 06/11/22 Rx Safety Lancets) Allergies Allergy/AdvReac Type Severity Reaction Status Date / Time No Known Allergies Allergy Verified 06/11/22 12:05 Past Med/Surg History Medical History Acute blood loss anemia Acute encephalopathy Acute respiratory failure with hypoxemia Closed head injury Collapse Constipation COVID-19 Diabetes mellitus type 2, uncontrolled History of alcoholism History of prostate cancer Hyperlipidemia Hypertension Hypoglycemia Hypothyroidism Insomnia Mild cognitive impairment Paroxysmal A-fib (07/2020) Paroxysmal SVT (supraventricular tachycardia) Rash Renal lesion Screening PSA (prostate specific antigen) Seborrheic dermatitis of scalp Sore throat Subcapital fracture of left hip 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 Unresponsive episode Vitamin D deficiency Weakness Surgical History History of left knee surgery History of shoulder surgery Left History of total left hip arthroplasty 12-20-21 Left Total Hip Arthroplasty-Uncemented(Left) - Jeremy Baker DO Family History Mother Cancer Grandmother (Paternal) Stroke Grandfather (Paternal) Stroke Other Myocardial infarction Denies family history of Ovarian cancer Prostate cancer Breast cancer Colorectal cancer Social History Smoking Status: Never smoker Tobacco Type: Smokeless Tobacco (Dip or Chew) Age Started Using Tobacco: 16; Age Quit Using Tobacco: 26; Second Hand Exposure: No; Do You Dip or Chew Tobacco: Yes; Hx Alcohol Use: No Hx Substance Use: No Preferred Language: Danish Communication Ability: Effective 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 Beliefs That Will Affect Care: None marital status: Single Current Living Situation: Personal Care Facility Current Living Situation Comment: [facility] 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 How many Children do You have: 0 Other Information That Helps Us Care for You: No Feels Safe at Home: Yes Safety Concerns: Feels Safe At This Time Childhood Exposure to Second-Hand Smoke: Yes caffeine: Yes (iced tea ) Dental Care, Regularly: No Physical Activity Frequency: Does not Exercise Seatbelt Use: always Sunscreen Use: No Assistive Devices: Walker Review of Systems A total of 10 systems reviewed and were otherwise negative Physical Exam Vital Signs Vital Signs - 24 hr 06/11/22 09:51 06/11/22 10:50 06/11/22 10:17 Temperature 36.6 C Temperature Source Temporal Artery Scan Pulse Rate 66 66 Pulse Rate [Apical] Pulse Rate from SpO2 Sensor Pulse Rhythm [Apical] Pulse Strength Normal Pulse Strength [Apical] Respiratory Rate 16 Respiratory Effort / Characteristics Respiratory Depth Respiratory Pattern Blood Pressure 168/104 H Blood Pressure [Right Arm] Blood Pressure Mean 125 Blood Pressure Mean [Right Arm] Pulse Oximetry 99 Oxygen Delivery Method Room Air Sepsis Recent Fever Within 48 Hours No Sepsis New/Unexplained Change in Mental Status N/A Sepsis Action Taken by Nursing No Action Required 06/11/22 14:00 06/11/22 15:38 06/11/22 10:35 Temperature Temperature Source Pulse Rate 69 61 Pulse Rate [Apical] 86 Pulse Rate from SpO2 Sensor Pulse Rhythm [Apical] Regular Pulse Strength Pulse Strength [Apical] Normal Respiratory Rate 20 18 Respiratory Effort / Characteristics Non-Labored Respiratory Depth Normal Respiratory Pattern Regular Blood Pressure Blood Pressure [Right Arm] 142/73 H Blood Pressure Mean Blood Pressure Mean [Right Arm] 96 Pulse Oximetry 95 98 Oxygen Delivery Method Room Air Sepsis Recent Fever Within 48 Hours Sepsis New/Unexplained Change in Mental Status Sepsis Action Taken by Nursing 06/11/22 10:40 06/11/22 10:50 06/11/22 11:00 Temperature Temperature Source Pulse Rate 64 66 64 Pulse Rate [Apical] Pulse Rate from SpO2 Sensor Pulse Rhythm [Apical] Pulse Strength Pulse Strength [Apical] Respiratory Rate 20 18 18 Respiratory Effort / Characteristics Respiratory Depth Respiratory Pattern Blood Pressure Blood Pressure [Right Arm] Blood Pressure Mean Blood Pressure Mean [Right Arm] Pulse Oximetry 96 93 99 Oxygen Delivery Method Sepsis Recent Fever Within 48 Hours Sepsis New/Unexplained Change in Mental Status Sepsis Action Taken by Nursing 06/11/22 11:10 06/11/22 11:20 06/11/22 11:30 Temperature Temperature Source Pulse Rate 61 60 60 Pulse Rate [Apical] Pulse Rate from SpO2 Sensor 60 61 Pulse Rhythm [Apical] Pulse Strength Pulse Strength [Apical] Respiratory Rate 14 18 17 Respiratory Effort / Characteristics Respiratory Depth Respiratory Pattern Blood Pressure 170/88 H Blood Pressure [Right Arm] Blood Pressure Mean 115 Blood Pressure Mean [Right Arm] Pulse Oximetry 96 95 94 Oxygen Delivery Method Sepsis Recent Fever Within 48 Hours Sepsis New/Unexplained Change in Mental Status Sepsis Action Taken by Nursing 06/11/22 11:40 06/11/22 11:50 06/11/22 12:00 Temperature Temperature Source Pulse Rate 65 60 70 Pulse Rate [Apical] Pulse Rate from SpO2 Sensor 64 61 Pulse Rhythm [Apical] Pulse Strength Pulse Strength [Apical] Respiratory Rate 12 19 25 H Respiratory Effort / Characteristics Respiratory Depth Respiratory Pattern Blood Pressure Blood Pressure [Right Arm] Blood Pressure Mean Blood Pressure Mean [Right Arm] Pulse Oximetry 99 100 Oxygen Delivery Method Sepsis Recent Fever Within 48 Hours Sepsis New/Unexplained Change in Mental Status Sepsis Action Taken by Nursing 06/11/22 12:39 06/11/22 12:40 06/11/22 13:00 Temperature Temperature Source Pulse Rate 83 66 70 Pulse Rate [Apical] Pulse Rate from SpO2 Sensor 70 67 Pulse Rhythm [Apical] Pulse Strength Pulse Strength [Apical] Respiratory Rate 15 25 H 20 Respiratory Effort / Characteristics Respiratory Depth Respiratory Pattern Blood Pressure Blood Pressure [Right Arm] Blood Pressure Mean Blood Pressure Mean [Right Arm] Pulse Oximetry 99 98 Oxygen Delivery Method Sepsis Recent Fever Within 48 Hours Sepsis New/Unexplained Change in Mental Status Sepsis Action Taken by Nursing 06/11/22 13:10 06/11/22 13:20 06/11/22 13:30 Temperature Temperature Source Pulse Rate 72 67 74 Pulse Rate [Apical] Pulse Rate from SpO2 Sensor Pulse Rhythm [Apical] Pulse Strength Pulse Strength [Apical] Respiratory Rate 26 H 11 L 17 Respiratory Effort / Characteristics Respiratory Depth Respiratory Pattern Blood Pressure Blood Pressure [Right Arm] Blood Pressure Mean Blood Pressure Mean [Right Arm] Pulse Oximetry Oxygen Delivery Method Sepsis Recent Fever Within 48 Hours Sepsis New/Unexplained Change in Mental Status Sepsis Action Taken by Nursing 06/11/22 13:38 06/11/22 13:38 06/11/22 13:40 Temperature Temperature Source Pulse Rate 64 62 Pulse Rate [Apical] Pulse Rate from SpO2 Sensor 65 71 Pulse Rhythm [Apical] Pulse Strength Pulse Strength [Apical] Respiratory Rate 22 19 Respiratory Effort / Characteristics Respiratory Depth Respiratory Pattern Blood Pressure 165/102 H Blood Pressure [Right Arm] Blood Pressure Mean 123 Blood Pressure Mean [Right Arm] Pulse Oximetry 97 100 Oxygen Delivery Method Sepsis Recent Fever Within 48 Hours Sepsis New/Unexplained Change in Mental Status Sepsis Action Taken by Nursing 06/11/22 13:50 06/11/22 14:00 06/11/22 14:00 Temperature Temperature Source Pulse Rate 75 61 Pulse Rate [Apical] Pulse Rate from SpO2 Sensor 61 Pulse Rhythm [Apical] Pulse Strength Pulse Strength [Apical] Respiratory Rate 15 13 Respiratory Effort / Characteristics Respiratory Depth Respiratory Pattern Blood Pressure 142/73 H Blood Pressure [Right Arm] Blood Pressure Mean 96 Blood Pressure Mean [Right Arm] Pulse Oximetry 98 Oxygen Delivery Method Sepsis Recent Fever Within 48 Hours Sepsis New/Unexplained Change in Mental Status Sepsis Action Taken by Nursing 06/11/22 14:10 06/11/22 14:20 06/11/22 14:30 Temperature Temperature Source Pulse Rate 69 71 72 Pulse Rate [Apical] Pulse Rate from SpO2 Sensor 59 L 69 Pulse Rhythm [Apical] Pulse Strength Pulse Strength [Apical] Respiratory Rate 19 22 18 Respiratory Effort / Characteristics Respiratory Depth Respiratory Pattern Blood Pressure Blood Pressure [Right Arm] Blood Pressure Mean Blood Pressure Mean [Right Arm] Pulse Oximetry 100 100 Oxygen Delivery Method Sepsis Recent Fever Within 48 Hours Sepsis New/Unexplained Change in Mental Status Sepsis Action Taken by Nursing 06/11/22 14:31 06/11/22 14:31 06/11/22 14:40 Temperature Temperature Source Pulse Rate 80 71 Pulse Rate [Apical] Pulse Rate from SpO2 Sensor Pulse Rhythm [Apical] Pulse Strength Pulse Strength [Apical] Respiratory Rate 20 21 Respiratory Effort / Characteristics Respiratory Depth Respiratory Pattern Blood Pressure 163/115 H Blood Pressure [Right Arm] Blood Pressure Mean 131 Blood Pressure Mean [Right Arm] Pulse Oximetry Oxygen Delivery Method Sepsis Recent Fever Within 48 Hours Sepsis New/Unexplained Change in Mental Status Sepsis Action Taken by Nursing 06/11/22 14:50 06/11/22 15:00 06/11/22 15:10 Temperature Temperature Source Pulse Rate 76 63 64 Pulse Rate [Apical] Pulse Rate from SpO2 Sensor Pulse Rhythm [Apical] Pulse Strength Pulse Strength [Apical] Respiratory Rate 20 20 13 Respiratory Effort / Characteristics Respiratory Depth Respiratory Pattern Blood Pressure Blood Pressure [Right Arm] Blood Pressure Mean Blood Pressure Mean [Right Arm] Pulse Oximetry Oxygen Delivery Method Sepsis Recent Fever Within 48 Hours Sepsis New/Unexplained Change in Mental Status Sepsis Action Taken by Nursing 06/11/22 15:20 06/11/22 15:30 06/11/22 15:40 Temperature Temperature Source Pulse Rate 94 H 65 81 Pulse Rate [Apical] Pulse Rate from SpO2 Sensor Pulse Rhythm [Apical] Pulse Strength Pulse Strength [Apical] Respiratory Rate 18 15 25 H Respiratory Effort / Characteristics Respiratory Depth Respiratory Pattern Blood Pressure Blood Pressure [Right Arm] Blood Pressure Mean Blood Pressure Mean [Right Arm] Pulse Oximetry Oxygen Delivery Method Sepsis Recent Fever Within 48 Hours Sepsis New/Unexplained Change in Mental Status Sepsis Action Taken by Nursing VITAL SIGNS - Vital signs and triage nursing notes were reviewed. Stable and afebrile. GENERAL -67-year-old male appearing his stated age. Communicates well with provi jaquelin and answers questions appropriately. SKIN - Gross examination of the entire body surface demonstrates no lacerations however there are several areas of bruising noted. There is a large, approxima tely 8 cm in diameter bruise overlying left medial bicep region on the medial upper extremity. On the right upper extremity there is a small punctate approximate 2 cm darkish bruise noted overlying the right lateral/anterior bicep region. There is also a linear type bruise across the patient's lower chest/upper abdomen that appears rather superficial. There is also edema and abrasions present to the right knee region with diffuse edema circumferentially to the left knee joint with mild increased warmth. Very minimal erythema to the left knee. No flank hematoma. HEAD - Normocephalic, Atraumatic. No Haines's Sign or Raccoon's Eyes. No depressed skull fractures palpable. EYES - PERRL with EOMI bilaterally. No hyphema. EARS - No deformities of external structures noted on gross examination bilaterally. No hemotympanum present. No tympanic perforation noted. Handle of malleus, umbo, cone of light, pars tensa/flaccid all easily visualized. NOSE - Midline and without cyanosis. No epistaxis or clear watery discharge noted. Septum midline without deviation. No septal hematoma noted. No overlying ecchymosis noted. MOUTH/OROPHARYNX - Without perioral cyanosis. Tongue midline with equal elevation of palate bilaterally. No blood noted in the oropharynx. No tonsillar hypertrophy, erythema, or exudates noted. No dental fractures noted. NECK -no tenderness to palpation over the cervical spinous processes. No cervical paraspinal muscle tenderness noted. LUNGS - Chest wall symmetric without accessory muscle use, intercostals retractions, or central cyanosis. No flail chest or depressed fractures noted. Clear to auscultation. No wheezing. CARDIAC - RRR with S1/S2. No murmur, rubs, or gallops appreciated. ABDOMEN - Abdominal contour normal and without pulsations or visible masses. BS normoactive all four quadrants. No rebound tenderness or guarding noted. Negative Ahmet's or Melchor Barger's Signs. No tenderness, palpable masses, hepatosplenomegaly, or ascites noted. EXTREMITIES - No gross deformities noted of the extremities. There is no left knee tenderness palpation.+5/5 strength noted in UE/LE bilaterally. NEUROLOGIC - Cranial nerves grossly intact without deficit. PSYCH -patient is alert and cooperates fully with examiner. Pt is very pleasant and interacts well with examiner. Course Administered Medications Carbidopa/Levodopa (Carbidopa/Levodopa 25/100mg Tab) 1 tab PO TID JOSELITO Stop: 07/11/22 20:59 Last Admin: 06/11/22 20:44 Dose: 1 tab Documented By: Insulin Aspart (Insulin Aspart Per Unit Charge) 0 units SC ACHS JOSELITO Stop: 07/11/22 16:29 Last Admin: 06/11/22 20:43 Dose: Not Given Documented By: Co-signed By: ESTEPHANIE Admin: 06/11/22 17:37 Dose: 7 units Documented By: MARTI Co-signed By: AMERICA Metoprolol Tartrate (Metoprolol Tartrate 25 Mg Tab) 12.5 mg PO BIDM JOSELITO Stop: 07/11/22 18:51 Last Admin: 06/11/22 19:51 Dose: 12.5 mg Documented By: Miscellaneous (Carbohydrates For Hypoglycemia ) 15 - 30 gm PO UD PRN PRN Reason: Hypoglycemia Protocol Stop: 07/11/22 16:19 Last Admin: 06/11/22 20:37 Dose: 15 gm Documented By: Nicotine (Nicotine 14 Mg/24 Hr Patch) 14 mg TD QAM JOSELITO Stop: 07/11/22 16:14 Last Admin: 06/11/22 17:38 Dose: 14 mg Documented By: MARTI Tamsulosin HCl (Tamsulosin Hcl 0.4 Mg Cap) 0.4 mg PO HS JOSELITO Stop: 07/11/22 20:59 Last Admin: 06/11/22 20:45 Dose: 0.4 mg Documented By: Tramadol HCl (Tramadol Hcl 50 Mg Tablet) 25 mg PO TID JOSELITO Stop: 07/11/22 20:59 Last Admin: 06/11/22 20:48 Dose: 25 mg Documented By: Discontinued Medications Carbidopa/Levodopa (Carbidopa/Levodopa 25/100mg Tab) 1 tab PO ONE ONE Stop: 06/11/22 17:31 Last Admin: 06/11/22 19:51 Dose: 1 tab Documented By: Ampicillin Sodium/Sulbactam Sodium 3,000 mg/ Sodium Chloride 108 mls @ 200 mls/hr IV NOW STA; Protocol Stop: 06/11/22 15:35 Last Admin: 06/11/22 17:40 Dose: Not Given Documented By: AMERICA Lactated Ringer's (Lr) 1,000 mls @ 999 mls/hr IV .Q1H1M ONE Stop: 06/11/22 17:05 Last Infusion: 06/11/22 18:11 Dose: 0 mls/hr Documented By: Admin: 06/11/22 17:09 Dose: 999 mls/hr Documented By: MARTI Ioversol (Optiray 350 100ml) 90 ml IV ONCE ONE Stop: 06/11/22 15:54 Last Admin: 06/11/22 15:54 Dose: 90 ml Documented By: JAVIER Metoprolol Tartrate (Metoprolol Tartrate 25 Mg Tab) 12.5 mg PO NOW STA Stop: 06/11/22 16:46 Last Admin: 06/11/22 19:46 Dose: Not Given Documented By: Medical Decision Making Laboratory Data 06/11/22 10:48 06/11/22 10:48 Lab Results 06/11/22 06/11/22 06/11/22 Range/Units 10:48 10:48 10:48 WBC 6.09 (4.8-10.8) K/ul RBC 4.43 L (4.70-6.10) M/uL Hgb 13.6 L (14.0-18.0) g/dl Hct 38.8 L (42.0-52.0) % MCV 87.6 (80.0-100.0) fL MCH 30.7 (25.0-34.0) pg MCHC 35.1 (32.0-36.0) g/dL RDW Std Deviation 43.2 (36.4-46.3) fL RDW Coeff of Robyn 13.5 (11.5-14.5) % Plt Count 158 (130-400) K/uL MPV 9.4 (9.4-12.4) fL Immature Gran % (Auto) 0.3 % Neut % (Auto) 74.5 % Lymph % (Auto) 15.4 % [place] % (Auto) 9.0 % Eos % (Auto) 0.5 % Baso % (Auto) 0.3 % Neut # (Auto) 4.53 (1.40-6.50) K/uL Lymph # (Auto) 0.94 L (1.2-3.4) K/uL [place] # (Auto) 0.55 (0.11-0.59) K/uL Eos # (Auto) 0.03 (0-0.50) K/uL Baso # (Auto) 0.02 (0-0.2) K/uL Immature Gran # (Auto) 0.02 (0.01-0.20) K/uL PT 12.5 H (9.0-12.0) Seconds INR 1.2 H (0.9-1.1) APTT 28.3 (21.0-31.0) Seconds PTT Ratio 1.0 Sodium 137 (136-145) mmol/L Potassium 4.0 (3.5-5.1) mmol/L Chloride 101 (98-107) mmol/L Carbon Dioxide 29 (21-32) mmol/L Anion Gap 7 (3-11) BUN 15 (6-23) mg/dl Creatinine 0.85 (0.6-1.4) mg/dl Est Cr Clr Drug Dosing Not Reportable Est GFR ( Amer) 104.5 ml/min Est GFR (Non-Af Amer) 90.2 ml/min BUN/Creatinine Ratio 17.6 (10-20) Glucose 347 H* (70-99(Fasting)) mg/dl Calcium 9.0 (8.6-10.3) mg/dl Total Bilirubin 1.1 H (0.2-1.0) mg/dl AST 16 (13-39) U/L ALT 15 (7-52) U/L Alkaline Phosphatase 84 (34-104) U/L Total Creatine Kinase (30-223) U/L Total Protein 6.5 (6.0-8.3) gm/dl Albumin 4.0 (3.4-5.0) gm/dl Globulin 2.5 (2.5-4.0) gm/dl Albumin/Globulin Ratio 1.6 (0.9-2) Procalcitonin (0-0.5) ng/ml TSH (0.300-4.500) uIu/ml Adenovirus (PCR) (NotDetected) B. pertussis DNA (PCR) (NotDetected) B.parapertussis DNA PCR (NotDetected) C. pneumoniae DNA (PCR) (NotDetected) Coronavirus OC43 (PCR) (NotDetected) Coronavirus HKU1 (PCR) (NotDetected) Coronavirus 229E (PCR) (NotDetected) SARS-CoV-2 (PCR) (NotDetected) Coronavirus NL63 (PCR) (NotDetected) Human Metapneumovir PCR (NotDetected) Influenza Type A (PCR) (NotDetected) Influenza Type B (PCR) (NotDetected) M. pneumoniae (PCR) (NotDetected) Parainfluenza 1 (PCR) (NotDetected) Parainfluenza 2 (PCR) (NotDetected) Parainfluenza 3 (PCR) (NotDetected) Parainfluenza 4 (PCR) (NotDetected) RSV (PCR) (NotDetected) Entero/Rhino (PCR) (NotDetected) 06/11/22 06/11/22 06/11/22 Range/Units 10:48 10:48 10:48 WBC (4.8-10.8) K/ul RBC (4.70-6.10) M/uL Hgb (14.0-18.0) g/dl Hct (42.0-52.0) % MCV (80.0-100.0) fL MCH (25.0-34.0) pg MCHC (32.0-36.0) g/dL RDW Std Deviation (36.4-46.3) fL RDW Coeff of Robyn (11.5-14.5) % Plt Count (130-400) K/uL MPV (9.4-12.4) fL Immature Gran % (Auto) % Neut % (Auto) % Lymph % (Auto) % [place] % (Auto) % Eos % (Auto) % Baso % (Auto) % Neut # (Auto) (1.40-6.50) K/uL Lymph # (Auto) (1.2-3.4) K/uL [place] # (Auto) (0.11-0.59) K/uL Eos # (Auto) (0-0.50) K/uL Baso # (Auto) (0-0.2) K/uL Immature Gran # (Auto) (0.01-0.20) K/uL PT (9.0-12.0) Seconds INR (0.9-1.1) APTT (21.0-31.0) Seconds PTT Ratio Sodium (136-145) mmol/L Potassium (3.5-5.1) mmol/L Chloride (98-107) mmol/L Carbon Dioxide (21-32) mmol/L Anion Gap (3-11) BUN (6-23) mg/dl Creatinine (0.6-1.4) mg/dl Est Cr Clr Drug Dosing Est GFR ( Amer) ml/min Est GFR (Non-Af Amer) ml/min BUN/Creatinine Ratio (10-20) Glucose (70-99(Fasting)) mg/dl Calcium (8.6-10.3) mg/dl Total Bilirubin (0.2-1.0) mg/dl AST (13-39) U/L ALT (7-52) U/L Alkaline Phosphatase (34-104) U/L Total Creatine Kinase 54 (30-223) U/L Total Protein (6.0-8.3) gm/dl Albumin (3.4-5.0) gm/dl Globulin (2.5-4.0) gm/dl Albumin/Globulin Ratio (0.9-2) Procalcitonin < 0.05 (0-0.5) ng/ml TSH 1.918 (0.300-4.500) uIu/ml Adenovirus (PCR) (NotDetected) B. pertussis DNA (PCR) (NotDetected) B.parapertussis DNA PCR (NotDetected) C. pneumoniae DNA (PCR) (NotDetected) Coronavirus OC43 (PCR) (NotDetected) Coronavirus HKU1 (PCR) (NotDetected) Coronavirus 229E (PCR) (NotDetected) SARS-CoV-2 (PCR) (NotDetected) Coronavirus NL63 (PCR) (NotDetected) Human Metapneumovir PCR (NotDetected) Influenza Type A (PCR) (NotDetected) Influenza Type B (PCR) (NotDetected) M. pneumoniae (PCR) (NotDetected) Parainfluenza 1 (PCR) (NotDetected) Parainfluenza 2 (PCR) (NotDetected) Parainfluenza 3 (PCR) (NotDetected) Parainfluenza 4 (PCR) (NotDetected) RSV (PCR) (NotDetected) Entero/Rhino (PCR) (NotDetected) 03/26/23 Range/Units 15:35 WBC (4.8-10.8) K/ul RBC (4.70-6.10) M/uL Hgb (14.0-18.0) g/dl Hct (42.0-52.0) % MCV (80.0-100.0) fL MCH (25.0-34.0) pg MCHC (32.0-36.0) g/dL RDW Std Deviation (36.4-46.3) fL RDW Coeff of Robyn (11.5-14.5) % Plt Count (130-400) K/uL MPV (9.4-12.4) fL Immature Gran % (Auto) % Neut % (Auto) % Lymph % (Auto) % [place] % (Auto) % Eos % (Auto) % Baso % (Auto) % Neut # (Auto) (1.40-6.50) K/uL Lymph # (Auto) (1.2-3.4) K/uL [place] # (Auto) (0.11-0.59) K/uL Eos # (Auto) (0-0.50) K/uL Baso # (Auto) (0-0.2) K/uL Immature Gran # (Auto) (0.01-0.20) K/uL PT (9.0-12.0) Seconds INR (0.9-1.1) APTT (21.0-31.0) Seconds PTT Ratio Sodium (136-145) mmol/L Potassium (3.5-5.1) mmol/L Chloride (98-107) mmol/L Carbon Dioxide (21-32) mmol/L Anion Gap (3-11) BUN (6-23) mg/dl Creatinine (0.6-1.4) mg/dl Est Cr Clr Drug Dosing Est GFR ( Amer) ml/min Est GFR (Non-Af Amer) ml/min BUN/Creatinine Ratio (10-20) Glucose (70-99(Fasting)) mg/dl Calcium (8.6-10.3) mg/dl Total Bilirubin (0.2-1.0) mg/dl AST (13-39) U/L ALT (7-52) U/L Alkaline Phosphatase (34-104) U/L Total Creatine Kinase (30-223) U/L Total Protein (6.0-8.3) gm/dl Albumin (3.4-5.0) gm/dl Globulin (2.5-4.0) gm/dl Albumin/Globulin Ratio (0.9-2) Procalcitonin (0-0.5) ng/ml TSH (0.300-4.500) uIu/ml Adenovirus (PCR) Not Detected (NotDetected) B. pertussis DNA (PCR) Not Detected (NotDetected) B.parapertussis DNA PCR Not Detected (NotDetected) C. pneumoniae DNA (PCR) Not Detected (NotDetected) Coronavirus OC43 (PCR) Not Detected (NotDetected) Coronavirus HKU1 (PCR) Not Detected (NotDetected) Coronavirus 229E (PCR) Not Detected (NotDetected) SARS-CoV-2 (PCR) DETECTED A* (NotDetected) Coronavirus NL63 (PCR) Not Detected (NotDetected) Human Metapneumovir PCR Not Detected (NotDetected) Influenza Type A (PCR) Not Detected (NotDetected) Influenza Type B (PCR) Not Detected (NotDetected) M. pneumoniae (PCR) Not Detected (NotDetected) Parainfluenza 1 (PCR) Not Detected (NotDetected) Parainfluenza 2 (PCR) Not Detected (NotDetected) Parainfluenza 3 (PCR) Not Detected (NotDetected) Parainfluenza 4 (PCR) Not Detected (NotDetected) RSV (PCR) Not Detected (NotDetected) Entero/Rhino (PCR) Not Detected (NotDetected) Imaging Data Radiologist's Impression: Knee X-Ray 06/11/22 10:17 XR knee LT 3V CLINICAL HISTORY: L knee pain and edema TECHNIQUE: 3 views of the left knee were obtained. Comparison: Comparison is made to knee radiographs 12/18/2021 FINDINGS: ACL repair screws are seen. Degenerative changes are seen in the knee joint. No joint effusion is seen. No soft tissue abnormality is seen. IMPRESSION: Degenerative changes without evidence of acute injury. ACT 112: Negative or not required by law. Electronically signed by: Kaushla Avila M.D. 06/11/2022 11:12 AM Venous Doppler Study 06/11/22 10:17 US venous doppler LE LT CLINICAL HISTORY: L knee pain and edema TECHNIQUE: Left lower extremity real-time compression venous ultrasound with Color Doppler imaging. Utilizing real-time ultrasonic imaging multiple real time high-resolution ultrasonic images with compression and noncompression maneuvers of the deep venous system in addition to color doppler imaging were performed from the common femoral vein through the proximal calf veins. COMPARISON: Comparison is made to left lower extremity Doppler ultrasound 03/16/2021 FINDINGS/IMPRESSION: Currently there is normal compressibility of the deep venous system from the common femoral vein through the proximal calf veins. No superficial venous thrombosis is identified. ACT 112: Negative or not required by law. Electronically signed by: Kaushal Avila M.D. 06/11/2022 12:[address] 06/11/22 12:09 CT cervical spine wo con CLINICAL HISTORY: Possible fall, anticoagulated TECHNIQUE: Multidetector row helical CT of the cervical spine was performed without administration of intravenous contrast. Coronal and sagittal refor mations were obtained. Automated dose lowering techniques and/or adjustment according to patient size were utilized for this exam. Comparison: None available at the time of this dictation. FINDINGS: No acute fractures or subluxations are identified. Degenerative changes are seen in the visualized spine. The alignment is normal. Soft tissues are unremarkable. IMPRESSION: Degenerative changes without evidence of acute bony injury. ACT 112: Negative or not required by law. Electronically signed by: Kaushal Avila M.D. 06/11/2022 1:07 PM Chest X-Ray 06/11/22 12:09 XR chest 1V portable CLINICAL HISTORY: Possible fall, anticoagulated TECHNIQUE: Single frontal radiograph of the chest was obtained. Comparison: Comparison is made to chest radiograph 12/18/2021 FINDINGS: No lines and tubes are seen. The cardiomediastinal silhouette is normal. Right upper lung opacity is seen. No evidence of pleural effusion or pneumothorax. IMPRESSION: Right upper lung airspace opacity is nonspecific and may represent aspiration, pneumonia, atelectasis, or underlying mass. Evaluation with CT chest is recommended. ACT 112: Negative or not required by law. Electronically signed by: Kaushal Avila M.D. 06/11/2022 1:[address] 06/11/22 12:09 CT head/brain wo con CLINICAL HISTORY: Possible fall, anticoagulated Technique: Contiguous axial CT images of the head were acquired from the base of the skull to the vertex without intravenous contrast administration. Images were viewed in brain, subdural and bone windows. Automated dose lowering techniques and/or adjustment according to patient size were utilized for this exam. Comparison: Comparison is made to CT head 03/07/2022 Findings: Areas of decreased attenuation are present in the periventricular and subcortical white matter bilaterally consistent with small vessel ischemic disease. Generalized cerebral atrophy with commensurate enlargement of the ventricles, sulci, and cisterns is also present. There is no acute intracranial hemorrhage or evidence of acute territorial infarction. No shift of the midline structures, mass effect, or extra-axial abnormalities are shown. Atherosclerotic calcifications are present in the intracranial segments of the internal carotid arteries. Imaged portions of the paranasal sinuses and mastoid air cells are clear. The orbits appear normal. There are no acute fractures of the calvaria or scalp swelling. Impression: No acute intracranial hemorrhage, no evidence of acute territorial infarction or other acute intracranial disease process. ACT 112: Negative or not required by law. Electronically signed by: Kaushal Avila M.D. 06/11/2022 1:[address] 06/11/22 15:36 CT chest diagnostic w con CLINICAL HISTORY: further evaluation of chest xray findings TECHNIQUE: Multidetector row helical CT of the chest was performed with intravenous contrast. Coronal and sagittal reformations were obtained. Automated dose lowering techniques and/or adjustment according to patient size were utiliz ed for this exam. CT DOSE: 362.37 mGy.cm Comparison: Comparison is made to CT chest 04/02/2017 and chest radiograph 06/11/2022 FINDINGS: Lungs and pleura: There is a 3 mm nodule in the right upper lung (series 4 image 134) and a 3 mm nodule in the left major fissure (image 140). Heart and pericardium: Heart size is normal. No pericardial effusion. Vessels: Unremarkable. Mediastinum and dawit: Unremarkable. Chest wall and lower neck: Unremarkable. Abdomen: Unremarkable. Bones: Degenerative changes in the thoracic spine. IMPRESSION: No acute abnormalities are seen. Density in the right upper lung seen on prior radiograph may have been artifactual due to overlapping osseous structures and soft tissue. ACT 112: Negative or not required by law. Electronically signed by: Kaushal Avila M.D. 06/11/2022 4:41 PM MDM Narrative Patient was seen and evaluated as above in room B09. Review was performed of triage nursing notes and vital signs. Patient's friend is at bedside. She does also provide history. Patient resides currently at [facility]. A thorough history and physical examination was performed. Patient does have some edema to the left knee however there are no signs on examination to suggest septic joint. He is afebrile. There is bruising noted to the left upper extremity. Small amount of bruising present to the upper abdomen/lower chest which is very minimal and superficial appearing and the area is nontender. Options of care were discussed with the patient and IV access was established, labs were drawn. Left knee x-ray was obtained as well as Doppler study. No fracture or dislocation. Doppler study was negative. Labs reveal no leukocytosis. Minor anemia noted with hemoglobin of 13.6. INR 1.2. Metabolic panel reveals hyperglycemia 347. T. bili 1.1. Procalcitonin negative. TSH r eveals euthyroid state. Chest x-ray was obtained and there is a right upper lung airspace opacity. Patient does not have any cough at this time. Upper respiratory panel pending. CT scan was obtained of the head and C-spine as there was a potential for fall. I did go to check on the patient and he was noted to have had a bowel movement in his pull-up. I did ensure that he was then appropriately cleaned and clothing changed by nursing staff. The patient does seem to have some slight confusion on examination which appears to be new from his baseline. I did discuss today's findings and presentation with his friend as listed in the contact/HIPAA portion of the contact. I spoke with Guerline. Guerline notes that yesterday he seemed to be quite lethargic but was a bit better today. I did inform back that I believe that hospitalization at this time is indicated and appropriate. I then attempted several times to reach out to the [facility] where he resides without success but then was able to finally make contact with one of the staff members. I wanted to discuss his baseline and recent clinical status. I spoke with Nicole. She notes that normally he is very alert and oriented at baseline. At this time I do believe that further evaluation and management in the inpatient setting is warranted. Case discussed with the hospitalist service. With the patient's presentation and pneumonia concern I did initially order antibiotics however discussed the case with the hospitalist service decision was made to proceed with CT scan of the chest and antibiotics were held. Respiratory panel positive for COVID-19. Patient notes that he had COVID-19 quite a long time ago but nothing recent. No recent illness. Although this may be from a recent infection that was subclinical, certainly this could be causing some of his symptoms at this time. Please refer to further documentation regarding his stay. Case was discussed with the attending physician. In the evaluation and treatment of this patient the following differential diagnoses were entertained: Septic arthritis, Lyme arthritis, fracture, dislocation, subluxation, contusion, hemarthrosis, joint effusion, DVT, acute intracranial abnormality, among others. Impression & Plan Left knee pain, COVID-19, Multiple bruises Discharge Plan Visit Data Chief Complaint: Knee Injury/Pain Stated Complaint: LEFT KNEE PAIN, SWELLING ED Provider: Lewis Wilder ED Midlevel Provider: Clayton Brink Discharge Problem: Left knee pain, COVID-19, Multiple bruises Patient Disposition: Admitted As Inpatient Condition: Good Discharge Instructions Interventions: ED Discharge Assessment Last Done: 06/11/22 18:53
[2022-06-11 11:01] LABS: Basophils # (auto) 0.02 K/uL (0-0.2); Basophils % (auto) 0.3 %; Eosinophils # (auto) 0.03 K/uL (0-0.50); Eosinophils % (auto) 0.5 %; Hematocrit (blood only) 38.8 % (42.0-52.0); Hemoglobin 13.6 g/dl (14.0-18.0); Immature Granulocytes # (auto) 0.02 K/uL (0.01-0.20); Immature Granulocytes % (auto) 0.3 %; Lymphocytes # (auto) 0.94 K/uL (1.2-3.4); Lymphocytes % (auto) 15.4 %; Mean Corpuscular Hemoglobin 30.7 pg (25.0-34.0); Mean Corpuscular Hgb Conc 35.1 g/dL (32.0-36.0); Mean Corpuscular Volume 87.6 fL (80.0-100.0); Mean Platelet Volume 9.4 fL (9.4-12.4); Monocytes # (auto) 0.55 K/uL (0.11-0.59); Neutrophils # (auto) 4.53 K/uL (1.40-6.50); Neutrophils % (auto) 74.5 %; Platelet Count 158 K/uL (130-400); RDW Coefficient of Variation 13.5 % (11.5-14.5); RDW Standard Deviation 43.2 fL (36.4-46.3); Red Blood Count 4.43 M/uL (4.70-6.10); White Blood Count 6.09 K/ul (4.8-10.8)
--- NOTE | 2022-06-11 11:13 | XRay Report ---
XR knee LT 3V CLINICAL HISTORY: L knee pain and edema TECHNIQUE: 3 views of the left knee were obtained. Comparison: Comparison is made to knee radiographs 12/18/2021 FINDINGS: ACL repair screws are seen. Degenerative changes are seen in the knee joint. No joint effusion is see n. No soft tissue abnormality is seen. IMPRESSION: Degenerative changes without evidence of acute injury. ACT 112: Negative or not required by law. Electronically signed by: Kaushal Avila M.D. 06/11/2022 11:12 AM
[2022-06-11 11:14] LABS: INR 1.2 (0.9-1.1); Partial Thromboplastin Time 28.3 Seconds (21.0-31.0); Prothrombin Time 12.5 Seconds (9.0-12.0)
[2022-06-11 11:28] LABS: Anion Gap 7 (3-11); Bilirubin,Total 1.1 mg/dl (0.2-1.0); Carbon Dioxide 29 mmol/L (21-32); Chloride 101 mmol/L (98-107); Sodium 137 mmol/L (136-145)
[2022-06-11 11:43] LABS: Alanine Aminotransferase 15 U/L (7-52); Albumin Globulin Ratio 1.6 (0.9-2); Alkaline Phosphatase 84 U/L (34-104); Aspartate Aminotransferase 16 U/L (13-39); BUN Creatinine Ratio 17.6 (10-20); Blood Urea Nitrogen 15 mg/dl (6-23); Est GFR (African American) 104.5 ml/min; Est GFR (Non-African American) 90.2 ml/min; Globulin 2.5 gm/dl (2.5-4.0); Glucose 347 mg/dl (70-99(Fasting)); Total Protein 6.5 gm/dl (6.0-8.3)
--- NOTE | 2022-06-11 12:35 | Emergency Department Note ---
ED Visit Note Physician Evaluation Note: I have personally evaluated and examined this patient. I agree with assessment and plan of Clayton Brink PA-C 67-year-old gentleman arrives for evaluation of swelling of left knee. Patient is on anticoagulant was noted to have some bruising elsewhere. Patient has no complaints other than left knee pain. Mild tenderness palpation and pain with range of motion but is not consistent with septic joint. He has some bruising over both knees I suspect this is a hemarthrosis of the left knee. He has some bruising of other parts of his body thus the CT of the head is reasonable given his anticoagulant use, though he is neurologically intact without any deficits. He has some mild bruising of the upper abdomen over the lower ribs. He has no abdominal tenderness palpation no flank bruising I think there is no indication for CT imaging of the abdomen pelvis or chest for trauma evaluation. Imaging of the chest does appear to show a right upper lobe infiltrate which I suspect is pneumonia though I will note he is not in respiratory distress and he is not hypoxic. Lewis Wilder MD
--- NOTE | 2022-06-11 12:39 | Ultrasound Report ---
US venous doppler LE LT CLINICAL HISTORY: L knee pain and edema TECHNIQUE: Left lower extremity real-time compression venous ultrasound with Color Doppler imaging. U tilizing real-time ultrasonic imaging multiple real time high-resolution ultrasonic images with compr ession and noncompression maneuvers of the deep venous system in addition to color doppler imaging we re performed from the common femoral vein through the proximal calf veins. COMPARISON: Comparison is made to left lower extremity Doppler ultrasound 03/16/2021 FINDINGS/IMPRESSION: Currently there is normal compressibility of the deep venous system from the common femoral vein thro ugh the proximal calf veins. No superficial venous thrombosis is identified. ACT 112: Negative or not required by law. Electronically signed by: Kaushal Avila M.D. 06/11/2022 12:38 PM
--- NOTE | 2022-06-11 13:04 | CT Scan Report ---
CT head/brain wo con CLINICAL HISTORY: Possible fall, anticoagulated Technique: Contiguous axial CT images of the head were acquired from the base of the skull to the faustina olga without intravenous contrast administration. Images were viewed in brain, subdural and [facility]. Automated dose lowering techniques and/or adjustment according to patient size were utilized for this exam. Comparison: Comparison is made to CT head 03/07/2022 Findings: Areas of decreased attenuation are present in the periventricular and subcortical white matter bilate rally consistent with small vessel ischemic disease. Generalized cerebral atrophy with commensurate e nlargement of the ventricles, sulci, and cisterns is also present. There is no acute intracranial hem orrhage or evidence of acute territorial infarction. No shift of the midline structures, mass effect, or extra-axial abnormalities are shown. Atherosclerotic calcifications are present in the intracran ial segments of the internal carotid arteries. Imaged portions of the paranasal sinuses and mastoid air cells are clear. The orbits appear normal. There are no acute fractures of the calvaria or scalp swelling. Impression: No acute intracranial hemorrhage, no evidence of acute territorial infarction or other acute intracra nial disease process. ACT 112: Negative or not required by law. Electronically signed by: Kaushal Avila M.D. 06/11/2022 1:03 PM
--- NOTE | 2022-06-11 13:08 | CT Scan Report ---
CT cervical spine wo con CLINICAL HISTORY: Possible fall, anticoagulated TECHNIQUE: Multidetector row helical CT of the cervical spine was performed without administration of intravenous contrast. Coronal and sagittal reformations were obtained. Automated dose lowering techn iques and/or adjustment according to patient size were utilized for this exam. Comparison: None available at the time of this dictation. FINDINGS: No acute fractures or subluxations are identified. Degenerative changes are seen in the visualized sp ine. The alignment is normal. Soft tissues are unremarkable. IMPRESSION: Degenerative changes without evidence of acute bony injury. ACT 112: Negative or not required by law. Electronically signed by: Kaushal Avila M.D. 06/11/2022 1:07 PM
--- NOTE | 2022-06-11 13:54 | XRay Report ---
XR chest 1V portable CLINICAL HISTORY: Possible fall, anticoagulated TECHNIQUE: Single frontal radiograph of the chest was obtained. Comparison: Comparison is made to chest radiograph 12/18/2021 FINDINGS: No lines and tubes are seen. The cardiomediastinal silhouette is normal. Right upper lung opacity is seen. No evidence of pleural effusion or pneumothorax. IMPRESSION: Right upper lung airspace opacity is nonspecific and may represent aspiration, pneumonia, atelectasis , or underlying mass. Evaluation with CT chest is recommended. ACT 112: Negative or not required by law. Electronically signed by: Kaushal Avila M.D. 06/11/2022 1:52 PM
[2022-06-11] MEDS ORDERED: AMPICILLIN/SULBACTAM SOD 3,000 MG in 0.9 % SODIUM CHLORIDE 100 ML IV STA (15:03)
--- NOTE | 2022-06-11 15:37 | History & Physical Report ---
Date of Service June 11, 2022 Assessment & Plan (1) Fall: Plan: -Admit to med/surge -The patient is currently afebrile, hemodynamically stable, and stable on RA -The patient was brought into the ED today due to left knee pain from an unwitnessed fall earlier this week -Imaging including CT head, chest xray, left knee xray, cervical spine CT, were negative for acute fractures, LLE venous doppler was negative for DVT -Chest xray was read as "Right upper lung airspace opacity is nonspecific and may represent aspiration, pneumonia, atelectasis, or underlying mass." >Obtaining CT of the chest diagnostic with con for further evaluation -The patient was found to be Covid positive on his full respiratory biofire, this is likely causing the majority of his weakness and increased confusion at this time -Will obtain a medical alcohol level, CK, and TSH for further evaluation -The patient is without leukocytosis and his procal is negative, will hold Abx until we get the results of the Chest CT -Will FU with UA when obtained -Fall precautions, aspiration precautions, PT/OT consults placed -The patient appears dry on exam, will give 1L LR Bolus on admission, if he fails his dysphagia screen will continue IV fluids until evaluated by speech therapy -Holding his xarelto for now with his multiple superficial injuries until major bleeding is rule out -BL SCD's for DVT PPX -AM CBC, BMP, PT/INR (2) COVID-19: Plan: -Currently stable on RA -Symptomatic/supportive treatment for now with incentive spirometry, DuoNebs QID, scheduled robitussin, and prn O2 to keep SpO2 at or greater than 95% -Have been unable to get in touch with anyone at the [facility] to try an coordinate picking up a prescription for Paxlovid, would recommend calling again tomorrow (3) Effusion, left knee: Plan: -Moderate left knee join effusion, is not erythematous or tender so low suspicion for septic arthritis at this time -Holding Xarelto for now -Continue current pain regimen and ice prn (4) Parkinsonism: Plan: -Patient on Rytary (extended release Carbidopa-Levodopa combo), not on formulary -Spoke with pharmacy who will assist with a conversion with formulary medications (5) Cerebrovascular disease: Plan: -Hold atorvastatin until CK results (6) Paroxysmal A-fib: Plan: -Currently rate controlled -Continue metoprolol -Hold Xarelto for now until we rule out major bleeding overnight (7) Paroxysmal SVT (supraventricular tachycardia): Plan: -Continue metoprolol (8) Type 2 diabetes mellitus: Plan: -Hold metformin -Typically on 22 units am Glargine, will convert to 10 units lantus BID for now -Correction factor of 50 and carb ratio of 15 -DM II diet -Adjust regimen as needed (9) BPH with urinary obstruction: Plan: -Conitue flomax (10) Chews tobacco: Plan: -Nicotine patch ordered (11) Fecal soiling: Plan The patient was discussed with Dr. Ordaz at the time of the admission History of Present Illness Chief Complaint: Left knee pain Primary Care Provider: Jg Valdez DO Lars is a 67 year old male resident at the [facility] with a PMH significant for Parkinsonism with gait ataxia (follows with [facility]), paroxysmal A. fib on Xarelto, Paroxysmal SVT, hypertension, hyperlipidemia, previous CVA with cognitive impairment, previous hx of alcoholism, DM2, hypothyroidism, and heavy tobacco chew use who presented to them [facility] ED on 06/11/22 with a chief complaint of left knee pain. In the ED the patient was found to be afebrile, hemodynamically stable, and stable on RA. Labs were remarkable for a WBC WNL, stable Hgb and platelets, lymphocyte count of 0.94, INR of 1.2, stable renal function at 0.85, glucose of 347, electrolytes WNL, total Bili of 1.1 otherwise LFTs WNL, procal pending. CT of the head was read as No acute intracranial hemorrhage, no evidence of acute territorial infarction or other acute intracranial disease process.. CT of the chest was read as Right upper lung airspace opacity is nonspecific and may represent aspiration, pneumonia, atelectasis, or underlying mass. Evaluation with CT chest is recommended.. CT of the the cervical spine was read as Degenerative changes without evidence of acute bony injury.. Venous Doppler of the LE LT was read as Currently there is normal compressibility of the deep venous system from the common femoral vein through the proximal calf veins. No superficial venous thrombosis is identified.. Lt knee xray was read as Degenerative changes without evidence of acute injury.. Per the ED staff, while the patient has a history of cognitive impairment his friend/HIPPA contact thinks he is more fatigued and confused than baseline. The patient was reportedly covered in feces in the ED. The ED staff spoke with the [facility] staff who explained that the patient is typically very independent at their facility and normally only needs a little bit of help throughout the day. At the time of the exam the patient was lying in bed in no acute distress, he was trying to sit up in bed when I first walked in. The patient is a very poor historian. When asked why he was brought into the ED he states "I fell". The only other details he was able to provide me was that the fall was "a few days ago". When I go thought a full ROS with him he denies any complaints or problems. When I asked how he was feeling he said "like shit", he cannot give anymore detail than that. He was only oriented to himself at the time of the exam. He is convinced that we are in [place] and at [facility], even after I showed him my badge. I tried to call [facility] to obtain more information but they did not scrap picker. Due to his baseline mental status and possible increased confusion I was unable to discuss code status with him. Per review, the patient has always been a Full Code on previous admissions; will keep him as a full code for now. Allergies Allergy/AdvReac Type Severity Reaction Status Date / Time No Known Allergies Allergy Verified 06/11/22 12:05 Home Medications Medication Instructions Recorded Confirmed Type Wheeled Walker #1 ea 03/21/21 06/11/22 Rx atorvastatin 40 mg tablet 40 mg PO QPM #90 tabs 01/23/22 06/11/22 Rx cholecalciferol (vitamin D3) 50 2,000 unit PO DAILY #90 caps 01/23/22 06/11/22 Rx mcg (2,000 unit) capsule insulin glargine 100 unit/mL (3 22 unit (0.22 mL) subcut QAM 90 01/23/22 06/11/22 Rx mL) subcutaneous pen (Lantus days #19.8 mL Solostar U-100 Insulin) levothyroxine 125 mcg tablet 125 mcg PO DAILY #30 tabs 01/23/22 06/11/22 Rx lidocaine 5 % topical patch 2 patch topical DAILY #30 ea 01/23/22 06/11/22 Rx magnesium oxide 400 mg PO DAILY #30 tabs 01/23/22 06/11/22 Rx metoprolol tartrate 25 mg tablet 12.5 mg PO BIDM #60 tabs 01/23/22 06/11/22 Rx polyethylene glycol 3350 17 17 g PO DAILY #850 grams 01/23/22 06/11/22 Rx gram/dose oral powder (Miralax) potassium chloride 20 mEq 20 meq PO DAILY #90 tabs 01/23/22 06/11/22 Rx tablet,extended release(part/cryst) quetiapine 25 mg tablet 12.5 mg PO HS PRN Psychosis #30 01/23/22 06/11/22 Rx tabs rivaroxaban 20 mg tablet (Xarelto) 20 mg PO HS #30 tabs 01/23/22 06/11/22 Rx tamsulosin 0.4 mg capsule 0.4 mg PO HS #30 caps 01/23/22 06/11/22 Rx acetaminophen 500 mg tablet 500 mg PO Q12H #60 tabs 02/13/22 06/11/22 Rx metformin 500 mg tablet,extended 500 mg PO BID #180 tabs 02/17/22 06/11/22 Rx release 24 hr tramadol 50 mg tablet 50 mg PO TID pain #90 tabs 04/11/22 06/11/22 Rx Rytary 23.75 mg-95 mg 1 cap PO TID 30 days #90 caps 04/14/22 06/11/22 Rx capsule,extended release (carbidopa-levodopa) insulin aspart U-100 100 unit/mL 6 unit (0.06 mL) subcut TID #30 mL 05/10/22 06/11/22 Rx (3 mL) subcutaneous pen (Novolog FlexPen U-100 Insulin aspart) pen needle, diabetic, safety 30 #120 ea 05/12/22 06/11/22 Rx gauge x 1/3" (Novofine Autocover) Wheelchair (Manual) #1 ea 05/19/22 06/11/22 Rx lancets 21 gauge (ReadyLance #200 ea 06/06/22 06/11/22 Rx Safety Lancets) Past Med/Surg History Medical History Acute blood loss anemia Acute encephalopathy Acute respiratory failure with hypoxemia Closed head injury Collapse Constipation COVID-19 Diabetes mellitus type 2, uncontrolled History of alcoholism History of prostate cancer Hyperlipidemia Hypertension Hypoglycemia Hypothyroidism Insomnia Mild cognitive impairment Paroxysmal A-fib (07/2020) Paroxysmal SVT (supraventricular tachycardia) Rash Renal lesion Screening PSA (prostate specific antigen) Seborrheic dermatitis of scalp Sore throat Subcapital fracture of left hip 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 Unresponsive episode Vitamin D deficiency Weakness Surgical History History of left knee surgery History of shoulder surgery Left History of total left hip arthroplasty 12-20-21 Left Total Hip Arthroplasty-Uncemented(Left) - Jeremy Baker DO Family History Mother Cancer Grandmother (Paternal) Stroke Grandfather (Paternal) Stroke Other Myocardial infarction Denies family history of Ovarian cancer Prostate cancer Breast cancer Colorectal cancer Social History Smoking Status: Never smoker Tobacco Type: Smokeless Tobacco (Dip or Chew) Age Started Using Tobacco: 16; Age Quit Using Tobacco: 26; Second Hand Exposure: No; Do You Dip or Chew Tobacco: Yes; Hx Alcohol Use: No Hx Substance Use: No Preferred Language: Japanese Communication Ability: Effective Spindle Tester Required: No Beliefs That Will Affect Care: None marital status: Single Current Living Situation: Personal Care Facility Current Living Situation Comment: [facility] current occupational status: retired current occupation: [employer] How many Children do You have: 0 Other Information That Helps Us Care for You: No Feels Safe at Home: Yes Safety Concerns: Feels Safe At This Time Childhood Exposure to Second-Hand Smoke: Yes caffeine: Yes (iced tea ) Dental Care, Regularly: No Physical Activity Frequency: Does not Exercise Seatbelt Use: always Sunscreen Use: No Assistive Devices: Walker Review of Systems Review of Systems: Denies current fever, chills, headache, changes in vision, hearing, taste, and smell, chest pain, SOB, cough, abdominal pain, nausea, vomiting, diarrhea, hematemesis, melena, dysuria, hematuria All systems have been reviewed and are otherwise negative. Physical Exam Physical Exam: Physical Exam: General: In no acute distress, stated age, malnourished with poor hygiene (feces on fingers), non-toxic appearing HEENT: Normocephalic, atraumatic, no scleral icterus, pupils around round, s ymmetrical, and reactive to light, Dry mucus membranes, trachea midline, no thyromegaly Chest/Pulm: No respiratory distress, symmetrical chest expansion, rhonchi noted in the right upper and middle lobes, otherwise CTA Cardiac: irregular rate and rhythm, no murmurs noted Abdomen: Negative for ascites, very small bruising noted just inferior to the BL anterior ribs, these bruises appear to be in various stages of healing, no other bruising noted on the abdomen or BL flanks, normoactive bowel sounds, soft, non-tender to palpation throughout Musculoskeletal: No acute trauma noted on inspection and palpation of the head, cervical spine, thoracic spine, lumbar spine, LUE noted to have bruising on the medical aspect of the bicep muscle, full ROM of the BL UE and LE without pain or tenderness, left knee is swollen and with non-bleeding skin tears, no tenderness to palpation of the BL LE's Extremities: Radial, dorsalis pedis, and posterior tibial pulses are intact and symmetrical, no edema noted in the BL LE's Skin: As described above Neuro: Alert and oriented to person only, thinks we are in [place], place, no focal defects, CN II-XII tested and intact, baseline tremor noted Psych: No acute distress, pleasantly confused and cooperative during the exam Results & Data Results & Data Vital Signs (Past 12 Hours) Vital Signs Temp Pulse Pulse Resp BP BP Pulse Ox 06/11/22 14:00 86 20 142/73 H 95 06/11/22 10:17 06/11/22 10:50 66 06/11/22 09:51 36.6 C 66 16 168/104 H 99 O2 Del Method 06/11/22 14:00 Room Air 06/11/22 10:17 Room Air 06/11/22 10:50 06/11/22 09:51 Laboratory Results Abnormal lab results 06/11/22 06/11/22 06/11/22 Range/Units 10:48 10:48 10:48 RBC 4.43 L (4.70-6.10) M/uL Hgb 13.6 L (14.0-18.0) g/dl Hct 38.8 L (42.0-52.0) % Lymph # (Auto) 0.94 L (1.2-3.4) K/uL PT 12.5 H (9.0-12.0) Seconds INR 1.2 H (0.9-1.1) Glucose 347 H* (70-99(Fasting)) mg/dl Total Bilirubin 1.1 H (0.2-1.0) mg/dl Diagnostic Findings Knee X-Ray 06/11/22 10:17 XR knee LT 3V CLINICAL HISTORY: L knee pain and edema TECHNIQUE: 3 views of the left knee were obtained. Comparison: Comparison is made to knee radiographs 12/18/2021 FINDINGS: ACL repair screws are seen. Degenerative changes are seen in the knee joint. No joint effusion is seen. No soft tissue abnormality is seen. IMPRESSION: Degenerative changes without evidence of acute injury. ACT 112: Negative or not required by law. Electronically signed by: Kaushal Avila M.D. 06/11/2022 11:12 AM Venous Doppler Study 06/11/22 10:17 US venous doppler LE LT CLINICAL HISTORY: L knee pain and edema TECHNIQUE: Left lower extremity real-time compression venous ultrasound with Color Doppler imaging. Utilizing real-time ultrasonic imaging multiple real time high-resolution ultrasonic images with compression and noncompression maneuvers of the deep venous system in addition to color doppler imaging were performed from the common femoral vein through the proximal calf veins. COMPARISON: Comparison is made to left lower extremity Doppler ultrasound 03/16/2021 FINDINGS/IMPRESSION: Currently there is normal compressibility of the deep venous system from the common femoral vein through the proximal calf veins. No superficial venous thrombosis is identified. ACT 112: Negative or not required by law. Electronically signed by: Kaushal Avila M.D. 06/11/2022 12:[address] 06/11/22 12:09 CT cervical spine wo con CLINICAL HISTORY: Possible fall, anticoagulated TECHNIQUE: Multidetector row helical CT of the cervical spine was performed without administration of intravenous contrast. Coronal and sagittal reformations were obtained. Automated dose lowering techniques and/or adjustment according to patient size were utilized for this exam. Comparison: None available at the time of this dictation. FINDINGS: No acute fractures or subluxations are identified. Degenerative changes are seen in the visualized spine. The alignment is normal. Soft tissues are unremarkable. IMPRESSION: Degenerative changes without evidence of acute bony injury. ACT 112: Negative or not required by law. Electronically signed by: Kaushal Avila M.D. 06/11/2022 1:07 PM Chest X-Ray 06/11/22 12:09 XR chest 1V portable CLINICAL HISTORY: Possible fall, anticoagulated TECHNIQUE: Single frontal radiograph of the chest was obtained. Comparison: Comparison is made to chest radiograph 12/18/2021 FINDINGS: No lines and tubes are seen. The cardiomediastinal silhouette is normal. Right upper lung opacity is seen. No evidence of pleural effusion or pneumothorax. IMPRESSION: Right upper lung airspace opacity is nonspecific and may represent aspiration, pneumonia, atelectasis, or underlying mass. Evaluation with CT chest is recommended. ACT 112: Negative or not required by law. Electronically signed by: Kaushal Avila M.D. 06/11/2022 1:[address] 06/11/22 12:09 CT head/brain wo con CLINICAL HISTORY: Possible fall, anticoagulated Technique: Contiguous axial CT images of the head were acquired from the base of the skull to the vertex without intravenous contrast administration. Images were viewed in brain, subdural and bone windows. Automated dose lowering techniques and/or adjustment according to patient size were utilized for this exam. Comparison: Comparison is made to CT head 03/07/2022 Findings: Areas of decreased attenuation are present in the periventricular and subcortical white matter bilaterally consistent with small vessel ischemic disease. Generalized cerebral atrophy with commensurate enlargement of the ventricles, sulci, and cisterns is also present. There is no acute intracranial hemorrhage or evidence of acute territorial infarction. No shift of the midline structures, mass effect, or extra-axial abnormalities are shown. Atherosclerotic calcifications are present in the intracranial segments of the internal carotid arteries. Imaged portions of the paranasal sinuses and mastoid air cells are clear. The orbits appear normal. There are no acute fractures of the calvaria or scalp swelling. Impression: No acute intracranial hemorrhage, no evidence of acute territorial infarction or other acute intracranial disease process. ACT 112: Negative or not required by law. Electronically signed by: Kaushal Avila M.D. 06/11/2022 1:03 PM ECG Additional Comments: Will obtain on admission Code Status & VTE Plan Code Status Full code VTE Prophylaxis Plan VTE Prophylaxis will be ordered: Yes Supervising Physician Co-Signing Physician Notes I personally saw and examined the patient. I verified all sanders points and agree with Angel Duff PA-C with the following exceptions and/or additions: 67 year old male presents to the ER with weakness and altered mental state. Found in feces. Unable to get any significant history from the patient he just notes he feels terrible but cannot elaborate O/E Multiple bruises over bilateral upper extremities, mild excoriation prater over abdomen. Alert and orientated to self only. HS 1+2, no murmurs, Chest CTAB, Abdo SNT, mild knee effusion b/l without erythema or warmth A/P Generalized weakness and fall - suspect decrease in cognition and mobility due to COVID, unable to prescribe Paxlovid in hospital setting and no-one can pick this up for him, unclear duration of symptoms regardless, PT/OT, suspect he will need placement PG Care Time/CCT Total # of Minutes Spent Total Time Spent with Patient: Total time spent is greater than 50% in coordination of care (as documented) at patient's floor/unit and/or counseling patient: [place] [address] INT INP/OBS CARE 3/75MIN Patient Type Established Medical Decision Making High Complexity Diagnoses Fall W19.XXXA Encounter type: initial encounter COVID-19 U07.1 Effusion, left knee M25.462 Parkinsonism G20 Cerebrovascular disease I67.9 Paroxysmal A-fib I48.0 Paroxysmal SVT (supraventricular tachycardia) I47.1 Type 2 diabetes mellitus E11.9 BPH with urinary obstruction N40.1; N13.8 Chews tobacco Z72.0 Fecal soiling R15.1 (1) Fall Encounter type: initial encounter Qualified Code(s): W19.XXXA - Unspecified fall, initial encounter
[2022-06-11] MEDS ORDERED: OPTIRAY 350 100ml IV ONE (15:53)
[2022-06-11] MEDS ORDERED: LACTATED RINGER'S 1,000 ML IV ONE (16:05)
[2022-06-11] MEDS ORDERED: GLUCOSE 40% GEL 15 GM TUBE PO PRN (16:20)
[2022-06-11] MEDS ORDERED: GLUCAGON FOR INJ 1 MG VIAL SQ PRN (16:20)
[2022-06-11] MEDS ORDERED: GLUCOSE 10 TAB/TUBE PO PRN (16:20)
[2022-06-11] MEDS ORDERED: DEXTROSE 50% 50 ML SYRINGE IV PRN (16:20)
--- NOTE | 2022-06-11 16:44 | CT Scan Report ---
CT chest diagnostic w con CLINICAL HISTORY: further evaluation of chest xray findings TECHNIQUE: Multidetector row helical CT of the chest was performed with intravenous contrast. Coronal and sagittal reformations were obtained. Automated dose lowering techniques and/or adjustment accord ing to patient size were utilized for this exam. CT DOSE: 362.37 mGy.cm Comparison: Comparison is made to CT chest 04/02/2017 and chest radiograph 06/11/2022 FINDINGS: Lungs and pleura: There is a 3 mm nodule in the right upper lung (series 4 image 134) and a 3 mm nodu le in the left major fissure (image 140). Heart and pericardium: Heart size is normal. No pericardial effusion. Vessels: Unremarkable. Mediastinum and dawit: Unremarkable. Chest wall and lower neck: Unremarkable. Abdomen: Unremarkable. Bones: Degenerative changes in the thoracic spine. IMPRESSION: No acute abnormalities are seen. Density in the right upper lung seen on prior radiograph may have be en artifactual due to overlapping osseous structures and soft tissue. ACT 112: Negative or not required by law. Electronically signed by: Kaushal Avila M.D. 06/11/2022 4:41 PM
[2022-06-11] MEDS ORDERED: METOPROLOL TARTRATE 25 MG TAB PO STA (16:45)
[2022-06-11 16:54] LABS: Adenovirus PCR Not Detected (NotDetected); Bordetella parapertussis PCR Not Detected (NotDetected); Bordetella pertussis PCR Not Detected (NotDetected); Chlamydia pneumoniae PCR Not Detected (NotDetected); Coronavirus 229E PCR Not Detected (NotDetected); Coronavirus HKU1 PCR Not Detected (NotDetected); Coronavirus NL63 PCR Not Detected (NotDetected); Coronavirus OC43PCR Not Detected (NotDetected); Human Metapneumovirus PCR Not Detected (NotDetected); Influenza A PCR Not Detected (NotDetected); Influenza B PCR Not Detected (NotDetected); Mycoplasma pneumoniae PCR Not Detected (NotDetected); Parainfluenza Virus 1 PCR Not Detected (NotDetected); Parainfluenza Virus 2 PCR Not Detected (NotDetected); Parainfluenza Virus 3 PCR Not Detected (NotDetected); Parainfluenza Virus 4 PCR Not Detected (NotDetected); Respiratory Syncytial VirusPCR Not Detected (NotDetected); Rhinovirus/Enterovirus PCR Not Detected (NotDetected)
[2022-06-11 17:19] LABS: Coronavirus CoV-2 (COVID19)PCR DETECTED (NotDetected)
[2022-06-11] MEDS ORDERED: CARBIDOPA/LEVODOPA 50/200MG EXT REL TAB PO ONE (17:30)
[2022-06-11] MEDS ORDERED: CARBIDOPA/LEVODOPA 25/100MG TAB PO ONE (17:30)
[2022-06-11] MEDS: INSULIN ASPART PER UNIT CHARGE SC SCH ×2 (17:37→20:43)
[2022-06-11] MEDS: NICOTINE 14 MG/24 HR PATCH TD SCH (17:38)
[2022-06-11] MEDS ORDERED: QUEtiapine FUMARATE 25 MG TABLET PO PRN (18:52)
[2022-06-11] MEDS ORDERED: ALBUT/IPRATROP 3MG/0.5MG NEB 3 ML VIAL NEB PRN (18:52)
[2022-06-11] MEDS ORDERED: PHARMACY GLYCEMIC MGMT CONSULT PRN (19:38)
[2022-06-11] MEDS: METOPROLOL TARTRATE 25 MG TAB PO SCH (19:51)
[2022-06-11] MEDS: CARBOHYDRATES FOR HYPOGLYCEMIA PO PRN (20:37)
[2022-06-11] MEDS: CARBIDOPA/LEVODOPA 25/100MG TAB PO SCH (20:44)
[2022-06-11] MEDS: TAMSULOSIN HCL 0.4 MG CAP PO SCH (20:45)
[2022-06-11] MEDS: traMADol HCL 50 MG TABLET PO SCH (20:48)
[2022-06-11] MEDS ORDERED: LANTUS PER UNIT CHARGE SQ SCH ×3 (21:00)
[2022-06-12] MEDS: INSULIN ASPART PER UNIT CHARGE SC SCH ×6 (00:10→21:59)
[2022-06-12] MEDS: LEVOTHYROXINE SODIUM 125 MCG TABLET PO SCH (05:31)
[2022-06-12] MEDS: CARBIDOPA/LEVODOPA 25/100MG TAB PO SCH ×3 (07:40→20:46)
[2022-06-12] MEDS: METOPROLOL TARTRATE 25 MG TAB PO SCH ×2 (07:42→16:31)
[2022-06-12] MEDS: traMADol HCL 50 MG TABLET PO SCH ×3 (07:46→20:45)
[2022-06-12] MEDS: NICOTINE 14 MG/24 HR PATCH TD SCH (07:48)
[2022-06-12] MEDS ORDERED: LANTUS PER UNIT CHARGE SQ SCH (09:00)
[2022-06-12 09:49] LABS: Basophils # (auto) 0.03 K/uL (0-0.2); Basophils % (auto) 0.4 %; Eosinophils # (auto) 0.03 K/uL (0-0.50); Eosinophils % (auto) 0.4 %; Hematocrit (blood only) 36.7 % (42.0-52.0); Immature Granulocytes # (auto) 0.11 K/uL (0.01-0.20); Immature Granulocytes % (auto) 1.6 %; Lymphocytes # (auto) 0.98 K/uL (1.2-3.4); Mean Corpuscular Hemoglobin 30.3 pg (25.0-34.0); Mean Corpuscular Hgb Conc 35.4 g/dL (32.0-36.0); Mean Corpuscular Volume 85.5 fL (80.0-100.0); Mean Platelet Volume 9.9 fL (9.4-12.4); Monocytes # (auto) 0.64 K/uL (0.11-0.59); Monocytes % (auto) 9.2 %; Neutrophils % (auto) 74.4 %; Platelet Count 154 K/uL (130-400); RDW Coefficient of Variation 13.4 % (11.5-14.5); RDW Standard Deviation 41.8 fL (36.4-46.3); Red Blood Count 4.29 M/uL (4.70-6.10); White Blood Count 6.99 K/ul (4.8-10.8)
[2022-06-12 09:59] LABS: INR 1.2 (0.9-1.1); Prothrombin Time 12.4 Seconds (9.0-12.0)
[2022-06-12] MEDS ORDERED: ADENOSINE IV SOLN 3 MG/ML 2 ML VIAL IV STA (10:47)
[2022-06-12] MEDS ORDERED: ADENOSINE IV SOLN 3 MG/ML 2 ML VIAL IV ONE (10:48)
--- NOTE | 2022-06-12 11:01 | Pharmacy Report ---
Pharmacy Glycemic Short Note 2 - Date of Service June 12, 2022 - Glycemic Short BSG Results (Last 24 hours): 06/11/22 06/11/22 06/11/22 10:48 17:05 20:35 Glucose 347 H* POC Glucose 275 H 56 L* 06/11/22 06/11/22 06/11/22 20:36 20:55 20:56 Glucose POC Glucose 63 L* 60 L* 73 06/12/22 06/12/22 06/12/22 00:02 03:56 07:57 Glucose POC Glucose 313 H* 114 H 176 H OUTPATIENT ANTIDIABETIC REGIMEN: * Lantus 19 units SQ qAM * Novolog 5 units TID before meals * Metformin ER 500mg PO BID * HbA1c: 6.5% (05/23/22) ASSESSMENT: * Mr Kumar is a 67yo diabetic M admitted yesterday for knee pain after a fall at home. Pt was found to be COVID-19 positive at time of admission. * Pt's BSGs were markedly elevated on admission (BSG 347mg/dL), however, BSGs are much improved today. * Pharmacy will continue to follow and adjust regimen as indicated. PLAN FOR INPATIENT GLYCEMIC CONTROL: * Hold outpatient oral diabetes medications * Basal insulin * Lantus 15 units SQ daily * Bolus insulin * NovoLog per scale ACHS or Q6hrs while NPO * Goal Range: Low 110 mg/dL - High 140 mg/dL * Correction Factor: 35 mg/dL/unit * Nutritional / Prandial insulin per carb ratio of 1 unit per 11 grams CHO consumed
[2022-06-12 11:03] LABS: BUN Creatinine Ratio 15.2 (10-20); Calcium 8.9 mg/dl (8.6-10.3); Creatinine Clr Calc Pharmacy 104.5 ml/min; Magnesium 1.4 mg/dl (1.7-2.4); Potassium 3.3 mmol/L (3.5-5.1)
[2022-06-12] MEDS ORDERED: METOPROLOL TARTRATE 25 MG TAB PO ONE (11:15)
--- NOTE | 2022-06-12 11:30 | Hospitalist Progress Note ---
Date of Service June 12, 2022 Assessment & Plan (1) Fall: Plan: -Imaging including CT head, chest xray, left knee xray, cervical spine CT, were negative for acute fractures, LLE venous doppler was negative for DVT -Chest xray was read as "Right upper lung airspace opacity is nonspecific and may represent aspiration, pneumonia, atelectasis, or underlying mass." >Obtaining CT of the chest diagnostic with con for further evaluation -The patient was found to be Covid positive on his full respiratory biofire, this is likely causing the majority of his weakness and increased confusion at this time -No leukocytosis, Pro-Alonso negative, additional antibiotics deferred -Fall precautions, aspiration precautions, PT/OT consults placed -Xarelto initially held for superficial injuries, no signs of significant bleed and no active bleeding. Will resume. (2) COVID-19: Plan: -Currently stable on RA -Symptomatic/supportive treatment for now with incentive spirometry, DuoNebs QID, scheduled robitussin, and prn O2 to keep SpO2 at or greater than 95% (3) Effusion, left knee: Plan: -Moderate left knee join effusion, is not erythematous or tender so low suspicion for septic arthritis at this time -Continue current pain regimen and ice prn (4) Parkinsonism: Plan: -Patient on Rytary (extended release Carbidopa-Levodopa combo), not on formulary -Was discussed with pharmacy on admission, converted to formulary equivalents (5) Cerebrovascular disease: Plan: -Hold atorvastatin until CK results (6) Paroxysmal A-fib: Plan: -Currently rate controlled -Continue metoprolol. Dose increased by additional 12.5 mg due to recurrent SVT -Xarelto resumed (7) Paroxysmal SVT (supraventricular tachycardia): Plan: Patient with multiple episodes of SVT at home per family. Did experience nonsustained SVT overnight 06/05 7 AM notified by nursing patient was with sustained SVT with heart rates up to 180. Patient asymptomatic and without chest pain or syncope/presyncope at the time. BP 140 systolic during episode. Did not abort with vagal maneuvers. Patient had received his morning metoprolol 12.5 mg. EKG consistent with SVT with retrograde P waves. Adenosine drawn; patient did convert just before dose given. Additional 12.5 mg metoprolol given and patient moved to PCU for monitoring. Potassium 3.3, repleted. Magnesium 1.4, repleted. (8) Type 2 diabetes mellitus: Plan: -Hold metformin -Typically on 22 units am Glargine, continue 10 units lantus BID for now -Correction factor of 50 and carb ratio of 15 -DM II diet (9) BPH with urinary obstruction: Plan: -Conitue flomax (10) Chews tobacco: Plan: -Nicotine patch ordered (11) Fecal soiling: (12) SVT (supraventricular tachycardia): Plan The patient was discussed with Dr. Ordaz at the time of the admission Admission and Anticipated Discharge Date Admission Date: June 11, 2022 Bernardino Sousa is seen at the bedside, and then again on reevaluation following an episode of SVT. Patient is not well oriented, but nondistressed reports he feels "okay but needs to go to the bathroom ". Endorses that he feels a little weak, but is not in pain. Denies shortness of breath, cough, difficulty breathing, lightheadedness, dizziness. Does not oriented to year or place, is oriented to name. Seen on reevaluation during episode of suspected SVT. At time of bedside assessment he is not having any chest pain, syncope, presyncope, lighthe adedness, dizziness. Reports he is not aware that his heart is in an abnormal rhythm, telemetry pack shows rate of 180. Review of Systems Review of Systems: All systems reviewed & are unremarkable except as noted in HPI & below and Unobtainable due to cognitive status Review of systems negative, although somewhat limited by patient engagement and cognitive status Physical Exam Physical Exam: General: Oriented to name, pleasantly confused. No acute distress. Poor hygiene HEENT: Atraumatic, normocephalic. Vision/hearing grossly intact Pulm: CTAB A&P. -wheezes, -rales, -rhonchi. Symmetrical chest rise. No increased work of breathing. No respiratory distress. Cardiac: Initially irregularly irregular with rate of approximately 60s, on reassessment with rate 180, BP 140 systolic, without pallor Abdominal: Nontender, nondistended, soft. BS present. Extremities: Warm, dry. Moves all extremities equally Results & Data Results & Data Vital Signs (Past 12 Hours) Vital Signs Temp Pulse Pulse Pulse Resp BP BP 06/12/22 08:28 57 L 06/12/22 08:14 36.5 C 60 16 145/86 H 06/12/22 02:28 182 H 06/12/22 02:25 171 H 06/12/22 02:30 174 H 06/12/22 02:20 155 H 06/12/22 02:42 36.9 C 74 18 166/89 H Pulse Ox O2 Del Method 06/12/22 08:28 06/12/22 08:14 97 Room Air 06/12/22 02:28 06/12/22 02:25 06/12/22 02:30 06/12/22 02:20 06/12/22 02:42 94 Room Air PG Care Time/CCT Total # of Minutes Spent Total Time Spent with Patient: Total time spent is greater than 50% in coordination of care (as documented) at patient's floor/unit and/or counseling patient: Coding Level of Care Code 26403 SUB INP/OBS CARE 3/50MIN Diagnoses Fall W19.XXXA Encounter type: initial encounter COVID-19 U07.1 Effusion, left knee M25.462 Parkinsonism G20 Cerebrovascular disease I67.9 Paroxysmal A-fib I48.0 Paroxysmal SVT (supraventricular tachycardia) I47.1 Type 2 diabetes mellitus E11.9 BPH with urinary obstruction N40.1; N13.8 Chews tobacco Z72.0 Fecal soiling R15.1 SVT (supraventricular tachycardia) I47.1 (1) Fall Encounter type: initial encounter Qualified Code(s): W19.XXXA - Unspecified fall, initial encounter
[2022-06-12] MEDS ORDERED: POTASSIUM CHLORIDE CRTAB 20 MEQ TABCR PO STA (11:41)
[2022-06-12] MEDS: POTASSIUM CHLORIDE / WTR 10 MEQ/100 ML PLCT IV SCH ×2 (12:03→12:59)
[2022-06-12] MEDS: MAGNESIUM OXIDE 400 MG TAB PO SCH (12:03)
[2022-06-12] MEDS: MAGNESIUM SULFATE / D5W 1 GM/100 ML BAG IV SCH ×3 (12:03→16:30)
--- NOTE | 2022-06-12 12:33 | Electrocardiogram Report ---
Test Reason : Blood Pressure : / mmHG Vent. Rate : 170 BPM Atrial Rate : 138 BPM P-R Int : 000 ms QRS Dur : 122 ms QT Int : 274 ms P-R-T Axes : 000 -42 -08 degrees QTc Int : 460 ms Supraventricular tachycardia Left axis deviation Right bundle branch block T wave abnormality, consider lateral ischemia Abnormal ECG When compared with ECG of 11-JUN-2022 16:38, (unconfirmed) Wide QRS tachycardia has replaced Sinus rhythm Vent. rate has increased BY 113 BPM Confirmed by Reza Victor ([id number]) on 06/12/2022 12:32:34 PM Referred By: REFERRED SELF Confirmed By:Reza Vitcor
[2022-06-12] MEDS ORDERED: LANTUS PER UNIT CHARGE SQ STA (14:50)
--- NOTE | 2022-06-12 15:00 | Electrocardiogram Report ---
Test Reason : Blood Pressure : / mmHG Vent. Rate : 057 BPM Atrial Rate : 057 BPM P-R Int : 180 ms QRS Dur : 136 ms QT Int : 458 ms P-R-T Axes : 072 -41 -11 degrees QTc Int : 445 ms Poor data quality, interpretation may be adversely affected Sinus bradycardia with occasional Premature atrial complexes Left axis deviation Right bundle branch block Abnormal ECG When compared with ECG of 28-DEC-2021 03:39, Sinus rhythm has replaced Supraventricular tachycardia Vent. rate has decreased BY 98 BPM Confirmed by Reza Victor ([id number]) on 06/12/2022 2:59:51 PM Referred By: REFERRED SELF Confirmed By:Reza Victor
--- NOTE | 2022-06-12 16:23 | Cardiology Consultation ---
Date of Consultation June 12, 2022 Assessment & Plan (1) Paroxysmal SVT (supraventricular tachycardia): -fortunately, his episode this morning broke without an intervention. -agree with repleting magnesium and potassium. -agree with increased dose of metoprolol tartrate. -if frequent episodes noted, may need to consider an antiarrhythmic or ablation. (2) Paroxysmal A-fib: -continue rate control long-term anticoagulation strategy. (3) COVID-19: -management per Dr. Talbert. History of Present Illness Attending Physician: Jed Talbert MD History of Present Illness Mr. Kumar is a 67-year-old male admitted after a mechanical fall several days prior to presentation. He was found to be COVID positive while in the emergency room. He developed a refractory SVT, therefore, this consultation was ordered. Of note, patient typically follows with Dr. Rodriges in the outpatient setting. The patient was in his usual state of health until several days prior to presentation. He suffered an unwitnessed fall without acute injury. He was also complaining of significant fatigue over that time frame. He was brought to the emergency room for evaluation, as above, was found to be COVID positive. Hospitalization was recommended. He was admitted here from December 18 through the after mechanical fall resulting in a left hip fracture. He developed several episodes of supraventricular tachycardia and was placed on amiodarone as a temporary measure. That medication was discontinued several months later. He also carries a history of paroxysmal atrial fibrillation and has been on rate control long-term anticoagulation. Past medical and surgical history 1. Hypertension 2. Hypercholesterolemia 3. Paroxysmal atrial fibrillation 4. Paroxysmal SVT 5. Diabetes mellitus 6. Hypothyroidism 7. Parkinson's disease 8. Gait ataxia 9. Vitamin-D deficiency 10. History of prostate carcinoma Social history Single, lives at the [facility] No alcohol Chews tobacco Family history Noncontributory Review of systems Unobtainable Allergies Allergy/AdvReac Type Severity Reaction Status Date / Time No Known Allergies Allergy Verified 06/11/22 12:05 Home Medications Medication Instructions Recorded Confirmed Type Wheeled Walker #1 ea 03/21/21 06/11/22 Rx atorvastatin 40 mg tablet 40 mg PO QPM #90 tabs 01/23/22 06/11/22 Rx cholecalciferol (vitamin D3) 50 2,000 unit PO DAILY #90 caps 01/23/22 06/11/22 Rx mcg (2,000 unit) capsule insulin glargine 100 unit/mL (3 22 unit (0.22 mL) subcut QAM 90 01/23/22 06/11/22 Rx mL) subcutaneous pen (Lantus days #19.8 mL Solostar U-100 Insulin) levothyroxine 125 mcg tablet 125 mcg PO DAILY #30 tabs 01/23/22 06/11/22 Rx lidocaine 5 % topical patch 2 patch topical DAILY #30 ea 01/23/22 06/11/22 Rx magnesium oxide 400 mg PO DAILY #30 tabs 01/23/22 06/11/22 Rx metoprolol tartrate 25 mg tablet 12.5 mg PO BIDM #60 tabs 01/23/22 06/11/22 Rx polyethylene glycol 3350 17 17 g PO DAILY #850 grams 01/23/22 06/11/22 Rx gram/dose oral powder (Miralax) potassium chloride 20 mEq 20 meq PO DAILY #90 tabs 01/23/22 06/11/22 Rx tablet,extended release(part/cryst) quetiapine 25 mg tablet 12.5 mg PO HS PRN Psychosis #30 01/23/22 06/11/22 Rx tabs rivaroxaban 20 mg tablet (Xarelto) 20 mg PO HS #30 tabs 01/23/22 06/11/22 Rx tamsulosin 0.4 mg capsule 0.4 mg PO HS #30 caps 01/23/22 06/11/22 Rx acetaminophen 500 mg tablet 500 mg PO Q12H #60 tabs 02/13/22 06/11/22 Rx metformin 500 mg tablet,extended 500 mg PO BID #180 tabs 02/17/22 06/11/22 Rx release 24 hr tramadol 50 mg tablet 50 mg PO TID pain #90 tabs 04/11/22 06/11/22 Rx Rytary 23.75 mg-95 mg 1 cap PO TID 30 days #90 caps 04/14/22 06/11/22 Rx capsule,extended release (carbidopa-levodopa) insulin aspart U-100 100 unit/mL 6 unit (0.06 mL) subcut TID #30 mL 05/10/22 06/11/22 Rx (3 mL) subcutaneous pen (Novolog FlexPen U-100 Insulin aspart) pen needle, diabetic, safety 30 #120 ea 05/12/22 06/11/22 Rx gauge x 1/3" (Novofine Autocover) Wheelchair (Manual) #1 ea 05/19/22 06/11/22 Rx lancets 21 gauge (ReadyLance #200 ea 06/06/22 06/11/22 Rx Safety Lancets) Patient History Medical History Acute blood loss anemia Acute encephalopathy Acute respiratory failure with hypoxemia Closed head injury Collapse Constipation COVID-19 Diabetes mellitus type 2, uncontrolled History of alcoholism History of prostate cancer Hyperlipidemia Hypertension Hypoglycemia Hypothyroidism Insomnia Mild cognitive impairment Paroxysmal A-fib (07/2020) Paroxysmal SVT (supraventricular tachycardia) Rash Renal lesion Screening PSA (prostate specific antigen) Seborrheic dermatitis of scalp Sore throat Subcapital fracture of left hip 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 Unresponsive episode Vitamin D deficiency Weakness Surgical History History of left knee surgery History of shoulder surgery Left History of total left hip arthroplasty 12-20-21 Left Total Hip Arthroplasty-Uncemented(Left) - Jeremy Baker, Family History Mother Cancer Grandmother (Paternal) Stroke Grandfather (Paternal) Stroke Other Myocardial infarction Denies family history of Ovarian cancer Prostate cancer Breast cancer Colorectal cancer Social History Smoking Status: Never smoker Tobacco Type: Smokeless Tobacco (Dip or Chew) Age Started Using Tobacco: 16; Age Quit Using Tobacco: 26; Second Hand Exposure: No; Do You Dip or Chew Tobacco: Yes; Hx Alcohol Use: No Hx Substance Use: No Preferred Language: German Communication Ability: Effective 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: No Beliefs That Will Affect Care: None marital status: Single Current Living Situation: Personal Care Facility Current Living Situation Comment: [facility] 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 Talbert as patient in COVID isolation. Results & Data Vital Signs (Past 12 Hours) Vital Signs Temp Pulse Pulse Resp BP Pulse Ox O2 Del Method 06/12/22 15:48 57 L 06/12/22 15:47 69 16 154/90 H 96 Room Air 06/12/22 12:45 67 16 159/105 H 96 Room Air 06/12/22 12:43 57 L 06/12/22 08:28 57 L 06/12/22 08:14 36.5 C 60 16 145/86 H 97 Room Air PG Care Time/CCT Total # of Minutes Spent Total Time Spent with Patient: Total time spent is greater than 50% in coordination of care (as documented) at patient's floor/unit and/or counseling patient: Coding Level of Care Code 48371 INT INP/OBS CARE 3/75MIN Diagnoses Paroxysmal SVT (supraventricular tachycardia) I47.1 Paroxysmal A-fib I48.0 COVID-19 U07.1
[2022-06-12] MEDS: TAMSULOSIN HCL 0.4 MG CAP PO SCH (20:46)
[2022-06-12] MEDS: RIVAROXABAN 20 MG TAB PO SCH (20:46)
[2022-06-12 21:52] LABS: BUN Creatinine Ratio 13.9 (10-20); Calcium 9.7 mg/dl (8.6-10.3); Creatinine Clr Calc Pharmacy 95.8 ml/min; Est GFR (African American) 111.9 ml/min; Est GFR (Non-African American) 96.5 ml/min; Magnesium 1.9 mg/dl (1.7-2.4); Potassium 3.5 mmol/L (3.5-5.1)
[2022-06-13 06:09] LABS: Basophils # (auto) 0.03 K/uL (0-0.2); Basophils % (auto) 0.4 %; Eosinophils % (auto) 1.2 %; Hematocrit (blood only) 38.2 % (42.0-52.0); Hemoglobin 13.4 g/dl (14.0-18.0); Immature Granulocytes # (auto) 0.02 K/uL (0.01-0.20); Immature Granulocytes % (auto) 0.2 %; Lymphocytes # (auto) 1.56 K/uL (1.2-3.4); Lymphocytes % (auto) 19.2 %; Mean Corpuscular Hemoglobin 30.5 pg (25.0-34.0); Mean Corpuscular Hgb Conc 35.1 g/dL (32.0-36.0); Mean Platelet Volume 9.5 fL (9.4-12.4); Monocytes # (auto) 0.74 K/uL (0.11-0.59); Monocytes % (auto) 9.1 %; Neutrophils # (auto) 5.68 K/uL (1.40-6.50); Neutrophils % (auto) 69.9 %; Platelet Count 163 K/uL (130-400); RDW Coefficient of Variation 13.4 % (11.5-14.5); RDW Standard Deviation 42.3 fL (36.4-46.3); Red Blood Count 4.39 M/uL (4.70-6.10); White Blood Count 8.13 K/ul (4.8-10.8)
[2022-06-13] MEDS: LEVOTHYROXINE SODIUM 125 MCG TABLET PO SCH (06:13)
[2022-06-13 06:30] LABS: BUN Creatinine Ratio 15.1 (10-20); Calcium 8.6 mg/dl (8.6-10.3); Creatinine Clr Calc Pharmacy 94.7 ml/min; Est GFR (African American) 111.2 ml/min; Magnesium 1.7 mg/dl (1.7-2.4); Potassium 3.3 mmol/L (3.5-5.1)
[2022-06-13 06:35] LABS: INR 1.3 (0.9-1.1); Prothrombin Time 13.2 Seconds (9.0-12.0)
[2022-06-13] MEDS ORDERED: INSULIN ASPART PER UNIT CHARGE SC ONE (07:06)
[2022-06-13 08:47] LABS: A calco-baum cmplx NotReported Not Detected (NotDetected); Bact fragilis Not Reported Not Detected (NotDetected); C auris Not Reported Not Detected (NotDetected); Calbicans Not Reported Not Detected (NotDetected); Candida glabrata Not Reported Not Detected (NotDetected); Candida krusei Not Reported Not Detected (NotDetected); Cneoformans/gatti Not Reported Not Detected (NotDetected); Cparapsilosis Not Reported Not Detected (NotDetected); Ctropicalis Not Reported Not Detected (NotDetected); E cloacae compx Not Reported Not Detected (NotDetected); Efaecalis Not Reported Not Detected (NotDetected); Efaecium Not Reported Not Detected (NotDetected); Enterobacterales Not Reported Not Detected (NotDetected); Escherichia coli Not Reported Not Detected (NotDetected); H influenzae Not Reported Not Detected (NotDetected); K aerogenes Not Reported Not Detected (NotDetected); Koxytoca Not Reported Not Detected (NotDetected); Kpneumoniae grp Not Reported Not Detected (NotDetected); Lmonocyt Not Reported Not Detected (NotDetected); N meningitidis Not Reported Not Detected (NotDetected); P aeruginosa Not Reported Not Detected (NotDetected); Proteus spp Not Reported Not Detected (NotDetected); Salmonella spp Not Reported Not Detected (NotDetected); Smarcescens Not Reported Not Detected (NotDetected); Staph lugdunensis Not Reported Not Detected (NotDetected); Staph spp. Not Reported DETECTED (NotDetected); Staphaureus Not Reported Not Detected (NotDetected); Staphepi Not Reported Not Detected (NotDetected); Stenmaltophilia Not Reported Not Detected (NotDetected); Strep agal(GrpB) Not Reported Not Detected (NotDetected); Strep pneum Not Reported Not Detected (NotDetected); Strep pyog (GrpA) Not Reported Not Detected (NotDetected); Strep spp Not Reported Not Detected (NotDetected)
[2022-06-13 08:59] LABS: Staphylococcus spp. DETECTED (NotDetected)
[2022-06-13] MEDS ORDERED: POTASSIUM CHLORIDE CRTAB 20 MEQ TABCR PO STA (09:18)
[2022-06-13] MEDS ORDERED: MAGNESIUM SULFATE / D5W 1 GM/100 ML BAG IV ONE (09:18)
[2022-06-13] MEDS: INSULIN ASPART PER UNIT CHARGE SC SCH ×4 (09:24→21:46)
[2022-06-13] MEDS: LANTUS PER UNIT CHARGE SQ SCH (09:26)
[2022-06-13] MEDS: traMADol HCL 50 MG TABLET PO SCH ×4 (09:48→21:46)
[2022-06-13] MEDS: CARBIDOPA/LEVODOPA 25/100MG TAB PO SCH ×3 (09:49→21:46)
[2022-06-13] MEDS: MAGNESIUM OXIDE 400 MG TAB PO SCH (09:49)
[2022-06-13] MEDS: METOPROLOL TARTRATE 25 MG TAB PO SCH ×2 (09:49→17:12)
[2022-06-13] MEDS: NICOTINE 14 MG/24 HR PATCH TD SCH (11:38)
--- NOTE | 2022-06-13 13:31 | Electrocardiogram Report ---
Test Reason : Blood Pressure : / mmHG Vent. Rate : 162 BPM Atrial Rate : 161 BPM P-R Int : 000 ms QRS Dur : 128 ms QT Int : 292 ms P-R-T Axes : 000 -60 -41 degrees QTc Int : 479 ms Poor data quality, interpretation may be adversely affected Supraventricular tachycardia Right bundle branch block Left anterior fascicular block Bifascicular block Abnormal ECG When compared with ECG of 12-JUN-2022 10:36, Wide QRS tachycardia has replaced Sinus rhythm Confirmed by Reza Victor ([id number]) on 06/13/2022 1:31:09 PM Referred By: REFERRED SELF Confirmed By:Reza Victor
--- NOTE | 2022-06-13 15:50 | Hospitalist Progress Note ---
Date of Service June 13, 2022 Assessment & Plan (1) SVT (supraventricular tachycardia): Plan: Frequent runs with rates to 190+. Fortunately no symptoms and amazingly stays hemodynamically stable. During his 12/2021 hospitalization for L hip Fx s/p ORIF he had numerous runs of SVT. He ultimately required amiodarone due to the frequency of the episodes. This worked very well to control the rhythm. I spoke with Dr Victor - will start amiodarone infusion without bolus. Re-assess tomorrow. Of note - his episodes often do break with vagal maneuvers - he is able to blow into a straw to break the SVT. (2) Fall: Plan: pre-hospital at [facility] perhaps weakness & confusion from #3 led to the fall PT, OT evals thus far they are advising SNF placement post discharge check lumbar spine, L hip, and L knee films (CT for spine and L knee, x-rays L hip) r/o fractures (3) Left knee pain: Plan: 2nd to trauma from his fall in the setting of chronic left knee DJD. x-rays of L knee from this admission negative for acute fracture but will obtain CT knee due to concern for worsening effusion, occult fracture, etc. Increase chronic tramadol to 50mg QID. Add tylenol 1gm TID scheduled. (4) COVID-19: Plan: minimal symptoms or asymptomatic at this time stable in room air CT chest neg for pneumonia defer on steroids defer on Remdesivir cont airborne isolation (5) Parkinsonism: Plan: patient on Rytary (extended release Carbidopa-Levodopa combo) as outpatient this med is not on formulary - pharmacy to convert to formulary equivalents (6) Cerebrovascular disease: Plan: can resume lipitor CPK wnl (7) Paroxysmal A-fib: Plan: no a.fib on tele thus far - just runs of SVT amiodarone infusion to be initiated for #1 above cont metoprolol BID xarelto on hold until results of CT left knee are back (rule out hemarthrosis) (8) Type 2 diabetes mellitus: Plan: pharmacy glycemic team managing cont to hold metformin cont basal-bolus insulin (9) BPH with urinary obstruction: Plan: Continue flomax (10) Chews tobacco: Plan: Nicotine patch (11) Lumbar back pain: Plan: Due to his fall and likely osteoporosis obtain CT lumbar spine - r/o compression fracture(s). (12) Hypokalemia: Plan: replace repeat BMP am (13) Cognitive impairment: Plan: I have cared for him in the past he seems to be about at baseline (14) Hypothyroidism: Plan: TSH 1.9 cont synthroid Plan POA Guerline updated by phone this evening Admission and Anticipated Discharge Date Admission Date: June 12, 2022 Subjective over the last 24 hours the patient has had multiple runs of SVT with rates as high as the 190s he is asymptomatic during the events, often lying in bed watching TV BPs are also stable during the runs longest run was about 10 minutes overnight he has not required meds to break the events had an additional event this afternoon which broke with vagal maneuvers (he blew thru a straw) during my visit he only c/o left knee pain and lower back pain he can't recall the details of how he got to the hospital and even disputes having COVID infection as well as his recent fall per staff eating well Review of Systems Review of Systems: gen - tired cv - no cp, no palpitations pulm - no dyspnea or cough GI - no pain neuro - no headache musculo - low back pain; left knee pain Physical Exam Physical Exam: gen - thin, NAD, pleasant confusion neck - no JVD mouth - MMM heart - RRR, s1 s2, no murmur lungs - CTA b/l abd - soft NT ND BS+ skin - bruise present left upper arm medial aspect; left knee bruising also present musculo - mild tenderness to palpation over l-spine but not the c-spine or t- spine; no pain with passive ROM of left hip; mild pain with flexion/extension of left knee; there is a scar over the midline of the left knee; the knee is large in comparison to the right knee; there may be a mild joint effusion; no patellar tenderness to palpation; not hot to touch ext - no peripheral edema, pulses 2+ b/l psych - oriented to person only Results & Data Results & Data Vital Signs (Past 12 Hours) Vital Signs Temp Pulse Pulse Pulse Resp BP Pulse Ox 06/13/22 08:42 60 06/13/22 08:42 06/13/22 11:26 36.6 C 67 19 159/94 H 97 06/13/22 06:56 36.8 C 64 16 134/92 98 O2 Del Method 06/13/22 08:42 06/13/22 08:42 Room Air 06/13/22 11:26 Room Air 06/13/22 06:56 Room Air Laboratory Results Laboratory Results - last 24 hr 06/11/22 06/13/22 06/13/22 15:27 05:40 05:40 WBC 8.13 RBC 4.39 L Hgb 13.4 L Hct 38.2 L MCV 87.0 MCH 30.5 MCHC 35.1 RDW Std Deviation 42.3 RDW Coeff of Robyn 13.4 Plt Count 163 MPV 9.5 Immature Gran % (Auto) 0.2 Neut % (Auto) 69.9 Lymph % (Auto) 19.2 Hockley % (Auto) 9.1 Eos % (Auto) 1.2 Baso % (Auto) 0.4 Neut # (Auto) 5.68 Lymph # (Auto) 1.56 [place]ockley # (Auto) 0.74 H Eos # (Auto) 0.10 Baso # (Auto) 0.03 Immature Gran # (Auto) 0.02 PT 13.2 H INR 1.3 H Sodium Potassium Chloride Carbon Dioxide Anion Gap BUN Creatinine Est Cr Clr Drug Dosing Est GFR ( Amer) Est GFR (Non-Af Amer) BUN/Creatinine Ratio Glucose POC Glucose Calcium Magnesium Staphylococcus sp PCR DETECTED A Bld Cult ID Panel PCR See PCR Comment 06/13/22 06/13/22 06/13/22 05:40 07:49 11:42 WBC RBC Hgb Hct MCV MCH MCHC RDW Std Deviation RDW Coeff of Robyn Plt Count MPV Immature Gran % (Auto) Neut % (Auto) Lymph % (Auto) [place] % (Auto) Eos % (Auto) Baso % (Auto) Neut # (Auto) Lymph # (Auto) [place] # (Auto) Eos # (Auto) Baso # (Auto) Immature Gran # (Auto) PT INR Sodium 141 Potassium 3.3 L Chloride 105 Carbon Dioxide 27 Anion Gap 9 BUN 11 Creatinine 0.73 Est Cr Clr Drug Dosing 94.7 Est GFR ( Amer) 111.2 Est GFR (Non-Af Amer) 96.0 BUN/Creatinine Ratio 15.1 Glucose 166 H POC Glucose 160 H 168 H Calcium 8.6 Magnesium 1.7 Staphylococcus sp PCR Bld Cult ID Panel PCR 06/13/22 06/13/22 16:48 20:53 WBC RBC Hgb Hct MCV MCH MCHC RDW Std Deviation RDW Coeff of Robyn Plt Count MPV Immature Gran % (Auto) Neut % (Auto) Lymph % (Auto) [place] % (Auto) Eos % (Auto) Baso % (Auto) Neut # (Auto) Lymph # (Auto) [place] # (Auto) Eos # (Auto) Baso # (Auto) Immature Gran # (Auto) PT INR Sodium Potassium Chloride Carbon Dioxide Anion Gap BUN Creatinine Est Cr Clr Drug Dosing Est GFR ( Amer) Est GFR (Non-Af Amer) BUN/Creatinine Ratio Glucose POC Glucose 85 120 H Calcium Magnesium Staphylococcus sp PCR Bld Cult ID Panel PCR PG Care Time/CCT Total # of Minutes Spent Total Time Spent with Patient: Total time spent is greater than 50% in coordination of care (as documented) at patient's floor/unit and/or counseling patient: Coding Level of Care Code 84046 SUB INP/OBS CARE 3/50MIN Diagnoses SVT (supraventricular tachycardia) I47.1 Fall W19.XXXA Encounter type: initial encounter Left knee pain M25.562 COVID-19 U07.1 Parkinsonism G20 Cerebrovascular disease I67.9 Paroxysmal A-fib I48.0 Type 2 diabetes mellitus E11.9 BPH with urinary obstruction N40.1; N13.8 Chews tobacco Z72.0 Lumbar back pain M54.50 Hypokalemia E87.6 Cognitive impairment R41.89 Hypothyroidism E03.9 (2) Fall Encounter type: initial encounter Qualified Code(s): W19.XXXA - Unspecified fall, initial encounter
[2022-06-13] MEDS ORDERED: ADENOSINE IV SOLN 3 MG/ML 2 ML VIAL IV ONE (17:43)
[2022-06-13] MEDS ORDERED: ADENOSINE IV SOLN 3 MG/ML 2 ML VIAL IV STA (17:46)
[2022-06-13] MEDS ORDERED: AMIODARONE / D5W 360 MG/200 ML BAG IV ONE (17:59)
[2022-06-13] MEDS ORDERED: 0.2 MICRON FILTER SET 1 EACH IV ONE (17:59)
[2022-06-13] MEDS: TAMSULOSIN HCL 0.4 MG CAP PO SCH (21:46)
[2022-06-13] MEDS: ACETAMINOPHEN 500 MG TAB PO SCH (21:46)
[2022-06-14] MEDS: LEVOTHYROXINE SODIUM 125 MCG TABLET PO SCH (06:08)
--- NOTE | 2022-06-14 07:11 | XRay Report ---
XR hip LT 2V w pelvis CLINICAL HISTORY: h/o L THR; recent fall; eval fracture, etc.. Pelvic pain. COMPARISON STUDY: Pelvis and right hip 02/23/2022. FINDINGS: No fracture or dislocation within the pelvis or hips. There is a left total hip arthroplast y. The hardware appears intact. Multiple brachytherapy seeds noted at the prostate gland. IMPRESSION: No fracture or dislocation within the pelvis or hips. ACT 112: Negative or not required by law. Electronically signed by: José Miguel Aldridge M.D. 06/14/2022 7:09 AM
--- NOTE | 2022-06-14 07:46 | CT Scan Report ---
LEFT KNEE CT CT DOSE: 201.57 mGy.cm HISTORY: Left knee pain. s/p fall, pain TECHNIQUE: Multiaxial CT images of the left knee were performed and reformatted in the sagittal and c oronal plane without the use of contrast. A dose lowering technique was utilized adhering to the debby Villalba. COMPARISON: Left knee radiograph 06/11/2022. FINDINGS: No acute fracture or dislocation within the left knee. Evidence for prior ACL repair. Mild- to-moderate tricompartmental osteoarthritis. Trace knee effusion. Vascular calcifications are noted. There is an anterior lateral subcutaneous hematoma measuring approximately 6.0 x 2.8 cm. There is sof t tissue edema/contusion along the lateral aspect of the knee. IMPRESSION: 1. No acute fracture or dislocation within the left knee. 2. An anterolateral subcutaneous hematoma. ACT 112: Negative or not required by law. Electronically signed by: José Miguel Aldridge M.D. 06/14/2022 7:44 AM
--- NOTE | 2022-06-14 07:56 | CT Scan Report ---
LUMBAR SPINE CT CT DOSE: 689.22 mGy.cm HISTORY: s/p fall with lumbar back pain TECHNIQUE: Multiaxial CT images of the lumbar spine were performed and reformatted in the sagittal an d coronal plane without the use of contrast. A dose lowering technique was utilized adhering to the principles of ALARA. COMPARISON: None. FINDINGS: No fracture or subluxation. The central canal is patent by CT technique. There is a punctat e left renal stone. Partially visualized presacral edema is noted. There is a 1.7 cm exophytic interm ediate density lesion within the lower pole of the right kidney on image 193. The visualized sacrum i s intact. Mild facet degenerative changes within the lumbar spine. Disc spaces are preserved. IMPRESSION: 1. No acute fractures within the lumbar spine. 2. A 1.7 cm exophytic right renal lesion. This remains stable and was previously described as a cyst on the 03/06/2022 ultrasound. 3. Left-sided nephrolithiasis. No hydronephrosis. ACT 112: Negative or not required by law. Electronically signed by: José Miguel Aldridge M.D. 06/14/2022 7:54 AM
[2022-06-14 08:18] LABS: INR 1.1 (0.9-1.1)
[2022-06-14 08:28] LABS: Basophils # (auto) 0.05 K/uL (0-0.2); Basophils % (auto) 0.7 %; Eosinophils # (auto) 0.11 K/uL (0-0.50); Eosinophils % (auto) 1.6 %; Hematocrit (blood only) 40.2 % (42.0-52.0); Hemoglobin 14.1 g/dl (14.0-18.0); Immature Granulocytes # (auto) 0.02 K/uL (0.01-0.20); Immature Granulocytes % (auto) 0.3 %; Lymphocytes # (auto) 1.22 K/uL (1.2-3.4); Lymphocytes % (auto) 18.3 %; Mean Corpuscular Hemoglobin 30.5 pg (25.0-34.0); Mean Corpuscular Hgb Conc 35.1 g/dL (32.0-36.0); Mean Platelet Volume 9.6 fL (9.4-12.4); Monocytes # (auto) 0.61 K/uL (0.11-0.59); Monocytes % (auto) 9.1 %; Neutrophils # (auto) 4.66 K/uL (1.40-6.50); Platelet Count 173 K/uL (130-400); RDW Coefficient of Variation 13.5 % (11.5-14.5); RDW Standard Deviation 42.5 fL (36.4-46.3); Red Blood Count 4.62 M/uL (4.70-6.10); White Blood Count 6.67 K/ul (4.8-10.8)
[2022-06-14] MEDS: METOPROLOL TARTRATE 25 MG TAB PO SCH ×2 (08:43→17:55)
[2022-06-14] MEDS: ACETAMINOPHEN 500 MG TAB PO SCH ×3 (08:44→20:36)
[2022-06-14] MEDS: ATORVASTATIN 40 MG TAB PO SCH (08:44)
[2022-06-14] MEDS: MAGNESIUM OXIDE 400 MG TAB PO SCH (08:45)
[2022-06-14] MEDS: CARBIDOPA/LEVODOPA 25/100MG TAB PO SCH ×3 (08:45→20:36)
[2022-06-14] MEDS: NICOTINE 14 MG/24 HR PATCH TD SCH (08:45)
[2022-06-14] MEDS: traMADol HCL 50 MG TABLET PO SCH ×4 (09:00→20:53)
[2022-06-14] MEDS: LANTUS PER UNIT CHARGE SQ SCH (09:04)
[2022-06-14] MEDS: INSULIN ASPART PER UNIT CHARGE SC SCH ×4 (09:04→20:53)
[2022-06-14 09:12] LABS: Calcium 8.8 mg/dl (8.6-10.3); Magnesium 1.8 mg/dl (1.7-2.4); Potassium 3.7 mmol/L (3.5-5.1)
[2022-06-14 09:18] LABS: BUN Creatinine Ratio 17.9 (10-20); Creatinine Clr Calc Pharmacy 72.8 ml/min; Est GFR (African American) 95.6 ml/min; Est GFR (Non-African American) 82.5 ml/min
[2022-06-14] MEDS: AMIODARONE / D5W 360 MG/200 ML BAG IV SCH ×3 (11:50→23:27)
--- NOTE | 2022-06-14 14:02 | Pharmacy Report ---
Pharmacy Glycemic Short Note 2 - Date of Service June 14, 2022 - Glycemic Short BSG Results (Last 24 hours): 06/13/22 06/13/22 06/14/22 16:48 20:53 07:32 Glucose 157 H POC Glucose 85 120 H 06/14/22 06/14/22 07:36 11:20 Glucose POC Glucose 149 H 186 H OUTPATIENT ANTIDIABETIC REGIMEN: * Lantus 19 units SC AM * Novolog 5 units SC TID before meals * Metformin ER 500mg PO BID * HbA1c: 6.5% (05/23/22) ASSESSMENT: 06/14: * Lars received 24 units of insulin yesterday, 15 units basal + 9 units bolus. BSGs were: 537-534-82-120 mg/dL. * Fasting BSG this AM was 149 mg/dL. Remains on amiodarone infusion. * No change to basal regimen. * Dinner BSG dropped last evening which is likely related to stacking of AM and Lunch bolus doses. * Loosened CR this morning. 06/12: * Mr Kumar is a 67yo diabetic M admitted yesterday for knee pain after a fall at home. Pt was found to be COVID-19 positive at time of admission. * Pt's BSGs were markedly elevated on admission (BSG 347mg/dL), however, BSGs are much improved today. * Pharmacy will continue to follow and adjust regimen as indicated. PLAN FOR INPATIENT GLYCEMIC CONTROL: * Hold outpatient oral diabetes medications * Basal insulin * Lantus 15 units SC daily * Bolus insulin * NovoLog per scale ACHS or Q6hrs while NPO * Goal Range: Low 110 mg/dL - High 140 mg/dL * Correction Factor: 35 mg/dL/unit * Nutritional / Prandial insulin per carb ratio of 1 unit per 12 grams CHO consumed
--- NOTE | 2022-06-14 20:29 | Hospitalist Progress Note ---
Date of Service June 14, 2022 Assessment & Plan (1) Paroxysmal A-fib: Plan: has prior h/o PAF - dates of such in the past uncertain. earlier in this stay (as well as during 12/2021 hospitalization) he has had numerous episodes of SVT. he converted to a.fib yesterday and rates are reasonable on amiodarone drip + metoprolol 25mg BID. will cont amio drip with beta binu overnight. will discuss his medications in the am with cardiology. continue telemetry. resume Xarelto 20mg daily tonight. (2) SVT (supraventricular tachycardia): Plan: Earlier in the stay had frequent runs with rates to 190+. Fortunately no symptoms and amazingly was hemodynamically stable despite the rapid HRs. During his 12/2021 hospitalization for L hip Fx s/p ORIF he had numerous runs of SVT as well. He ultimately required amiodarone due to the frequency of the episodes. This worked very well to control the rhythm. His SVT has resolved with amiodarone infusion. He is now in a.fib with reasonable rates. Of note - his episodes often do break with vagal maneuvers - he is able to blow into a straw to break the SVT. will discuss meds with cardiology in am. (3) Fall: Plan: pre-hospital at [facility] perhaps weakness & confusion from COVID infection led to the fall PT, OT tavares done -- advising SNF placement post discharge checked lumbar spine CT - no fractures checked L hip/pelvic x-rays - no fracture L knee CT without hemarthrosis or fracture. Small hematoma seen laterally c/w his physical exam. ice prn to left knee tylenol scheduled tramadol scheduled (4) Left knee pain: Plan: 2nd to trauma from his fall in the setting of chronic left knee DJD. x-rays of L knee from this admission negative for acute fracture. CT L knee w/o fracture; hematoma seen laterally. Cont tramadol 50mg QID scheduled. Could consider nucynta ER if additional pain relief is needed. Cont tylenol 1gm TID scheduled. (5) COVID-19: Plan: minimal symptoms or asymptomatic at this time remains stable in room air robust appetite CT chest neg for pneumonia defer on steroids defer on Remdesivir cont airborne isolation (6) Parkinsonism: Plan: patient on Rytary (extended release Carbidopa-Levodopa combo) as outpatient this med is not on formulary - pharmacy to convert to formulary equivalents (7) Cerebrovascular disease: Plan: cont lipitor CPK wnl (8) Type 2 diabetes mellitus: Plan: pharmacy glycemic team managing cont to hold metformin cont basal-bolus insulin very good control (9) BPH with urinary obstruction: Plan: Continue flomax (10) Chews tobacco: Plan: Nicotine patch (11) Lumbar back pain: Plan: Due to his fall and likely osteoporosis obtained CT lumbar spine - no compression fracture seen no c/o pain today (12) Hypokalemia: Plan: replaced now normal mag also wnl (13) Cognitive impairment: Plan: I have cared for him in the past and he seems to be about at baseline (I cared for him 12/2021). 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 Other? (14) Hypothyroidism: Plan: TSH 1.9 cont synthroid Plan POA Guerline updated by phone yesterday evening again PT/OT advising SNF rather than [facility] post-d/c Admission and Anticipated Discharge Date Admission Date: June 12, 2022 Subjective no further runs of SVT he is now in a.fib but rates are about 100-110 or less no symptoms from a.fib during the visit he was resting in bed watching TV denied any pain in any location; no back pain, no left knee pain denied dyspnea or cough eating well Review of Systems Review of Systems: gen - "I feel good" cv - no cp, no orthopnea, no palpitations pulm - no dyspnea GI - no nausea/emesis Physical Exam Physical Exam: gen - thin, NAD, looks good today neck - no JVD mouth - MMM heart - irregularly irregular, s1 s2, no murmur lungs - CTA b/l abd - soft NT ND BS+ skin - bruise present left upper arm medial aspect; left knee bruising also present with small hematoma laterally musculo - passive ROM of left knee today does not cause any pain or tenderness ext - no peripheral edema, pulses 2+ b/l psych - oriented to person only Results & Data Results & Data Vital Signs (Past 12 Hours) Vital Signs Temp Pulse Pulse Resp BP Pulse Ox O2 Del Method 06/14/22 20:00 36.5 C 89 22 136/89 97 Room Air 06/14/22 17:03 36.8 C 76 18 112/84 98 Room Air 06/14/22 16:17 90 06/14/22 11:41 36.8 C 74 18 142/95 H 98 Room Air 06/14/22 11:06 Room Air Laboratory Results Laboratory Results - last 24 hr 06/13/22 06/14/22 06/14/22 20:53 07:32 07:32 WBC 6.67 RBC 4.62 L Hgb 14.1 Hct 40.2 L MCV 87.0 MCH 30.5 MCHC 35.1 RDW Std Deviation 42.5 RDW Coeff of Robyn 13.5 Plt Count 173 MPV 9.6 Immature Gran % (Auto) 0.3 Neut % (Auto) 70.0 Lymph % (Auto) 18.3 Hunt % (Auto) 9.1 Eos % (Auto) 1.6 Baso % (Auto) 0.7 Neut # (Auto) 4.66 Lymph # (Auto) 1.22 Hunt # (Auto) 0.61 H Eos # (Auto) 0.11 Baso # (Auto) 0.05 Immature Gran # (Auto) 0.02 PT 12.0 INR 1.1 Sodium Potassium Chloride Carbon Dioxide Anion Gap BUN Creatinine Est Cr Clr Drug Dosing Est GFR ( Amer) Est GFR (Non-Af Amer) BUN/Creatinine Ratio Glucose POC Glucose 120 H Calcium Magnesium 06/14/22 06/14/22 06/14/22 07:32 07:36 11:20 WBC RBC Hgb Hct MCV MCH MCHC RDW Std Deviation RDW Coeff of Robyn Plt Count MPV Immature Gran % (Auto) Neut % (Auto) Lymph % (Auto) Hunt % (Auto) Eos % (Auto) Baso % (Auto) Neut # (Auto) Lymph # (Auto) Hunt # (Auto) Eos # (Auto) Baso # (Auto) Immature Gran # (Auto) PT INR Sodium 140 Potassium 3.7 Chloride 104 Carbon Dioxide 28 Anion Gap 8 BUN 17 Creatinine 0.95 Est Cr Clr Drug Dosing 72.8 Est GFR ( Amer) 95.6 Est GFR (Non-Af Amer) 82.5 BUN/Creatinine Ratio 17.9 Glucose 157 H POC Glucose 149 H 186 H Calcium 8.8 Magnesium 1.8 06/14/22 06/14/22 16:51 19:43 WBC RBC Hgb Hct MCV MCH MCHC RDW Std Deviation RDW Coeff of Robyn Plt Count MPV Immature Gran % (Auto) Neut % (Auto) Lymph % (Auto) Hunt % (Auto) Eos % (Auto) Baso % (Auto) Neut # (Auto) Lymph # (Auto) Hunt # (Auto) Eos # (Auto) Baso # (Auto) Immature Gran # (Auto) PT INR Sodium Potassium Chloride Carbon Dioxide Anion Gap BUN Creatinine Est Cr Clr Drug Dosing Est GFR ( Amer) Est GFR (Non-Af Amer) BUN/Creatinine Ratio Glucose POC Glucose 127 H 173 H Calcium Magnesium PG Care Time/CCT Total # of Minutes Spent Total Time Spent with Patient: Total time spent is greater than 50% in coordination of care (as documented) at patient's floor/unit and/or counseling patient: Coding Level of Care Code 04733 SUB INP/OBS CARE 2/35MIN Diagnoses Paroxysmal A-fib I48.0 SVT (supraventricular tachycardia) I47.1 Fall W19.XXXA Encounter type: initial encounter Left knee pain M25.562 COVID-19 U07.1 Parkinsonism G20 Cerebrovascular disease I67.9 Type 2 diabetes mellitus E11.9 BPH with urinary obstruction N40.1; N13.8 Chews tobacco Z72.0 Lumbar back pain M54.50 Hypokalemia E87.6 Cognitive impairment R41.89 Hypothyroidism E03.9 (3) Fall Encounter type: initial encounter Qualified Code(s): W19.XXXA - Unspecified fall, initial encounter
[2022-06-14] MEDS: TAMSULOSIN HCL 0.4 MG CAP PO SCH (20:37)
[2022-06-14] MEDS: RIVAROXABAN 20 MG TAB PO SCH (20:37)
[2022-06-15] MEDS: LEVOTHYROXINE SODIUM 125 MCG TABLET PO SCH (05:21)
[2022-06-15] MEDS: INSULIN ASPART PER UNIT CHARGE SC SCH ×4 (09:37→20:38)
[2022-06-15] MEDS: METOPROLOL TARTRATE 25 MG TAB PO SCH ×2 (09:40→18:20)
[2022-06-15] MEDS: CARBIDOPA/LEVODOPA 25/100MG TAB PO SCH ×3 (09:40→20:51)
[2022-06-15] MEDS: ATORVASTATIN 40 MG TAB PO SCH (09:40)
[2022-06-15] MEDS: traMADol HCL 50 MG TABLET PO SCH ×4 (09:40→20:54)
[2022-06-15] MEDS: MAGNESIUM OXIDE 400 MG TAB PO SCH (09:40)
[2022-06-15] MEDS: ACETAMINOPHEN 500 MG TAB PO SCH ×3 (09:40→20:51)
[2022-06-15] MEDS: NICOTINE 14 MG/24 HR PATCH TD SCH (09:41)
[2022-06-15] MEDS: LANTUS PER UNIT CHARGE SQ SCH (09:53)
[2022-06-15] MEDS: AMIODARONE / D5W 360 MG/200 ML BAG IV SCH ×2 (12:52→21:03)
[2022-06-15] MEDS: CARBOHYDRATES FOR HYPOGLYCEMIA PO PRN (16:35)
[2022-06-15] MEDS ORDERED: bisacodyL 10 MG SUPP PR STA (20:34)
[2022-06-15] MEDS: TAMSULOSIN HCL 0.4 MG CAP PO SCH (20:52)
[2022-06-15] MEDS: RIVAROXABAN 20 MG TAB PO SCH (20:52)
--- NOTE | 2022-06-15 21:26 | Hospitalist Progress Note ---
Date of Service June 15, 2022 Assessment & Plan (1) Paroxysmal A-fib: Plan: has prior h/o PAF - dates of such in the past uncertain. earlier in this stay (as well as during 12/2021 hospitalization) he has had numerous episodes of SVT. he converted to rapid a.fib on 06/13. rates have improved with addition of metoprolol 25mg BID on top of the amiodarone drip. he converted back to NSR late last pm, 06/14. will cont amio drip with beta binu overnight. will discuss his medications in the am with cardiology. defer ultimate management to cardiology. I spoke briefly with Dr Victor who will ask Dr Nguyen to see since Dr Nguyen knows Mr Kumar well from the clinic & past hospitalization. continue telemetry. cont Xarelto 20mg daily. (2) SVT (supraventricular tachycardia): Plan: Earlier in the stay had frequent runs with rates to 190+. Fortunately no symptoms and amazingly was hemodynamically stable despite the rapid HRs. During his 12/2021 hospitalization for L hip Fx s/p ORIF he had numerous runs of SVT as well. He ultimately required amiodarone due to the frequency of the episodes. This worked very well to control the rhythm. His SVT has improved in frequency and duration significantly with amiodarone infusion. He then converted to baseline NSR to a.fib on 06/13, then went back to NSR late in the evening on 06/14. Of note - his episodes often do break with vagal maneuvers - he is able to blow into a straw to break the SVT. will discuss long-term meds and management with cardiology. cont amio drip for now. (3) Fall: Plan: pre-hospital at [facility] perhaps weakness & confusion from COVID infection led to the fall PT, OT evals done -- advising SNF placement post discharge checked lumbar spine CT - no fractures checked L hip/pelvic x-rays - no fracture L knee CT without hemarthrosis or fracture. Small hematoma seen laterally c/w his physical exam. ice prn to left knee tylenol scheduled tramadol scheduled (4) Left knee pain: Plan: 2nd to trauma from his fall in the setting of chronic left knee DJD. x-rays of L knee from this admission negative for acute fracture. CT L knee w/o fracture; hematoma seen laterally. Cont tramadol 50mg QID scheduled. Could consider nucynta ER if additional pain relief is needed. Cont tylenol 1gm TID scheduled. (5) COVID-19: Plan: minimal symptoms or asymptomatic at this time remains stable in room air robust appetite CT chest neg for pneumonia defer on steroids defer on Remdesivir cont airborne isolation (6) Parkinsonism: Plan: patient on Rytary (extended release Carbidopa-Levodopa combo) as outpatient this med is not on formulary - pharmacy converted to formulary equivalents (7) Cerebrovascular disease: Plan: cont lipitor CPK wnl (8) Type 2 diabetes mellitus: Plan: pharmacy glycemic team managing cont to hold metformin cont basal-bolus insulin very good control some lows today, however (9) BPH with urinary obstruction: Plan: Continue flomax (10) Chews tobacco: Plan: Nicotine patch (11) Lumbar back pain: Plan: Due to his fall and likely osteoporosis obtained CT lumbar spine - no compression fracture seen no c/o pain today (12) Hypokalemia: Plan: replaced now normal mag also wnl (13) Cognitive impairment: Plan: I have cared for him in the past and he seems to be about at baseline (I cared for him 12/2021). 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 Other? (14) Hypothyroidism: Plan: TSH 1.9 cont synthroid (15) Constipation: Plan: smears of liquid stool likely overflow stooling from impaction dulcolax suppos x 1 now if not effective then enema then needs good bowel regimen Plan POA Guerline updated at bedside today we discussed care plan we discussed that PT/OT are advising SNF rather than [facility] post-d/c she is in support of such Admission and Anticipated Discharge Date Admission Date: June 12, 2022 Subjective converted from a.fib to NSR late last pm since then has stayed in NSR 2-3 brief runs of SVT today - MUCH improved in terms of frequency of runs and duration; 2 of the runs were <1 min in duration and self-terminated still no symptoms from such remains on amio drip eating well per staff having smears of stool during my bedside visit he complained that his rectum was painful his POA "Guerline" was present during the visit Review of Systems Review of Systems: gen - feels good cv - no chest pain pulm - no dyspnea GI - no vomiting, no pain, no nausea - incontinent of urine musculo - mild L lateral knee pain Physical Exam Physical Exam: gen - thin, NAD, looks good neck - no JVD mouth - MMM heart - RRR, s1 s2, no murmur lungs - CTA b/l abd - soft NT ND BS+ skin - bruise present left upper arm medial aspect - no change; left knee br uising also present with small hematoma laterally - no change musculo - passive ROM of left knee today does not cause any pain or tenderness; no joint effusion ext - no peripheral edema, pulses 2+ b/l rectal - copious liquid stool on the bedsheets; some liquid stool on perirectal area; firm stool present in rectal vault; no hemorrhoids Results & Data Results & Data Vital Signs (Past 12 Hours) Vital Signs Temp Pulse Pulse Resp BP Pulse Ox O2 Del Method 06/15/22 19:23 36.6 C 66 20 131/84 96 Room Air 06/15/22 16:31 36.6 C 59 L 18 125/86 94 Room Air 06/15/22 11:50 36.5 C 68 18 146/83 H 98 Room Air Laboratory Results Laboratory Results - last 24 hr 06/15/22 06/15/22 06/15/22 08:01 11:45 16:29 POC Glucose 135 H 151 H 61 L* 06/15/22 06/15/22 06/15/22 16:31 16:57 19:57 POC Glucose 59 L* 94 200 H PG Care Time/CCT Total # of Minutes Spent Total Time Spent with Patient: Total time spent is greater than 50% in coordination of care (as documented) at patient's floor/unit and/or counseling patient: Coding Level of Care Code 18092 SUB INP/OBS CARE 3/50MIN Diagnoses Paroxysmal A-fib I48.0 SVT (supraventricular tachycardia) I47.1 Fall W19.XXXA Encounter type: initial encounter Left knee pain M25.562 COVID-19 U07.1 Parkinsonism G20 Cerebrovascular disease I67.9 Type 2 diabetes mellitus E11.9 BPH with urinary obstruction N40.1; N13.8 Chews tobacco Z72.0 Lumbar back pain M54.50 Hypokalemia E87.6 Cognitive impairment R41.89 Hypothyroidism E03.9 Constipation K59.00 (3) Fall Encounter type: initial encounter Qualified Code(s): W19.XXXA - Unspecified fall, initial encounter
[2022-06-16] MEDS: LEVOTHYROXINE SODIUM 125 MCG TABLET PO SCH (06:18)
[2022-06-16 07:45] LABS: BUN Creatinine Ratio 27.9 (10-20); Calcium 8.6 mg/dl (8.6-10.3); Creatinine Clr Calc Pharmacy 80.4 ml/min; Est GFR (Non-African American) 89.7 ml/min; Potassium 3.3 mmol/L (3.5-5.1)
[2022-06-16] MEDS ORDERED: METOPROLOL TARTRATE 25 MG TAB PO SCH (08:00)
[2022-06-16] MEDS: NICOTINE 14 MG/24 HR PATCH TD SCH (08:02)
[2022-06-16] MEDS: traMADol HCL 50 MG TABLET PO SCH ×4 (08:02→23:28)
[2022-06-16] MEDS: ATORVASTATIN 40 MG TAB PO SCH (08:03)
[2022-06-16] MEDS: ACETAMINOPHEN 500 MG TAB PO SCH ×3 (08:03→19:55)
[2022-06-16] MEDS: MAGNESIUM OXIDE 400 MG TAB PO SCH (08:03)
[2022-06-16] MEDS: CARBIDOPA/LEVODOPA 25/100MG TAB PO SCH ×3 (08:03→19:57)
[2022-06-16] MEDS: AMIODARONE / D5W 360 MG/200 ML BAG IV SCH (08:06)
[2022-06-16] MEDS: LANTUS PER UNIT CHARGE SQ SCH (08:13)
[2022-06-16] MEDS: INSULIN ASPART PER UNIT CHARGE SC SCH ×4 (08:14→20:01)
[2022-06-16] MEDS: POTASSIUM CHLORIDE CRTAB 20 MEQ TABCR PO SCH ×2 (09:15→19:58)
[2022-06-16] MEDS ORDERED: AMIODARONE 200 MG TAB PO ONE (09:45)
--- NOTE | 2022-06-16 14:35 | Pharmacy Report ---
Pharmacy Glycemic Short Note 2 - Date of Service June 16, 2022 - Glycemic Short BSG Results (Last 24 hours): 06/15/22 06/15/22 06/15/22 16:29 16:31 16:57 Glucose POC Glucose 61 L* 59 L* 94 06/15/22 06/16/22 06/16/22 19:57 06:55 07:45 Glucose 150 H POC Glucose 200 H 171 H 06/16/22 11:33 Glucose POC Glucose 139 H OUTPATIENT ANTIDIABETIC REGIMEN: * Lantus 19 units SC AM * Novolog 5 units SC TID before meals * Metformin ER 500mg PO BID * HbA1c: 6.5% (05/23/22) ASSESSMENT: 06/16: * On 06/15 and 06/16, the patient has received 22 and 27 total units of insulin respectively- both of which were ~2/3 basal insulin. * Fasting BSG's have been well within goal range. * Prandial and HS BSG's have largely been within the upper end of goal range to slightly above goal. Patient did experience one instance of hypoglycemia at dinnertime on 06/15, at which his BSG was 61 mg/dL. Patient may benefit from a loosening in correction factor, given that the dinner BSG's have been low on several occasions throughout the admission following high lunch values. 06/14: * Lars received 24 units of insulin yesterday, 15 units basal + 9 units bolus. BSGs were: 334-982-71-120 mg/dL. * Fasting BSG this AM was 149 mg/dL. Remains on amiodarone infusion. * No change to basal regimen. * Dinner BSG dropped last evening which is likely related to stacking of AM and Lunch bolus doses. * Loosened CR this morning. 06/12: * Mr Kumar is a 67yo diabetic M admitted yesterday for knee pain after a fall at home. Pt was found to be COVID-19 positive at time of admission. * Pt's BSGs were markedly elevated on admission (BSG 347mg/dL), however, BSGs are much improved today. * Pharmacy will continue to follow and adjust regimen as indicated. PLAN FOR INPATIENT GLYCEMIC CONTROL: * Hold outpatient oral diabetes medications * Basal insulin * Lantus 15 units SC daily * Bolus insulin * NovoLog per scale ACHS or Q6hrs while NPO * Goal Range: Low 120 mg/dL - High 160 mg/dL * Correction Factor: 45 mg/dL/unit * Nutritional / Prandial insulin per carb ratio of 1 unit per 12 grams CHO consumed
[2022-06-16] MEDS: AMIODARONE 200 MG TAB PO SCH (18:01)
[2022-06-16] MEDS: TAMSULOSIN HCL 0.4 MG CAP PO SCH (19:59)
[2022-06-16] MEDS: RIVAROXABAN 20 MG TAB PO SCH (19:59)
--- NOTE | 2022-06-16 21:16 | Hospitalist Progress Note ---
Date of Service June 16, 2022 Assessment & Plan (1) Paroxysmal A-fib: Plan: has prior h/o PAF - dates of such in the past uncertain. earlier in this stay (as well as during 12/2021 hospitalization) he has had numerous episodes of SVT. he converted to rapid a.fib on 06/13. rates improved with addition of metoprolol 25mg BID on top of the amiodarone drip. he converted back to NSR late 06/14. I spoke with Dr Nguyen from cardiology. Plan - * outpatient SVT ablation in near-future * stop amio drip - convert to PO amio 200mg BID * stop metoprolol Dr Nguyen is hopeful that if he performs SVT ablation perhaps he may not have a.fib either. Cont tele. Cont xarelto. (2) SVT (supraventricular tachycardia): Plan: Earlier in the stay had frequent runs with rates to 190+. Fortunately no symptoms and amazingly was hemodynamically stable despite the rapid HRs. During his 12/2021 hospitalization for L hip Fx s/p ORIF he had numerous runs of SVT as well. He ultimately required amiodarone due to the frequency of the episodes. This worked very well to control the rhythm. His SVT has improved in frequency and duration significantly with amiodarone infusion. He then converted to baseline NSR to a.fib on 06/13, then went back to NSR late in the evening on 06/14. Of note - his episodes often do break with vagal maneuvers - he is able to blow into a straw to break the SVT. see #1 re: plan for medications. (3) Fall: Plan: pre-hospital at [facility] perhaps weakness & confusion from COVID infection led to the fall PT, OT evals done -- advising SNF placement post discharge checked lumbar spine CT - no fractures checked L hip/pelvic x-rays - no fracture L knee CT without hemarthrosis or fracture. Small hematoma seen laterally c/w his physical exam. ice prn to left knee tylenol scheduled tramadol scheduled (4) Left knee pain: Plan: improved 2nd to trauma from his fall in the setting of chronic left knee DJD. x-rays of L knee from this admission negative for acute fracture. CT L knee w/o fracture; hematoma seen laterally. Cont tramadol 50mg QID scheduled. Could consider nucynta ER if additional pain relief is needed. Cont tylenol 1gm TID scheduled. (5) COVID-19: Plan: asymptomatic at this time remains stable in room air robust appetite CT chest neg for pneumonia defer on steroids defer on Remdesivir cont airborne isolation (6) Parkinsonism: Plan: patient on Rytary (extended release Carbidopa-Levodopa combo) as outpatient this med is not on formulary - pharmacy converted to formulary equivalents (7) Cerebrovascular disease: Plan: cont lipitor CPK wnl (8) Type 2 diabetes mellitus: Plan: pharmacy glycemic team managing cont to hold metformin cont basal-bolus insulin very good control lows resolved (9) BPH with urinary obstruction: Plan: Continue flomax Has urinary incontinence at baseline (10) Chews tobacco: Plan: Nicotine patch (11) Lumbar back pain: Plan: Due to his fall and likely osteoporosis obtained CT lumbar spine - no compression fracture seen has not complained of pain in a few days (12) Hypokalemia: Plan: replace again repeat BMP am (13) Cognitive impairment: Plan: I have cared for him in the past and he seems to be about at baseline (I cared for him 12/2021). 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 Other? (14) Hypothyroidism: Plan: TSH 1.9 cont synthroid (15) Constipation: Plan: improved s/p dulcolax cont bowel regimen Plan POA Guerline updated at bedside yesterday dispo - SNF for rehab Admission and Anticipated Discharge Date Admission Date: June 12, 2022 Subjective no issues overnight had BM with suppos last night tele overnight -- no a.fib, no SVT pt w/o complaints during the visit eating well he denied pain any location no issues per staff Review of Systems Review of Systems: pulm - no cough or dyspnea GI - no rectal pain today CV - no orthopnea or pain gen - eating well; "I feel good" Physical Exam Physical Exam: gen - thin, NAD, watching TV in bed neck - no JVD mouth - MMM heart - RRR, s1 s2, no murmur lungs - CTA b/l abd - soft NT ND BS+ skin - bruise present left upper arm medial aspect - no change; left knee bruising also present with small hematoma laterally - this is improved musculo - passive ROM of left knee today does not cause any pain or tenderness; no joint effusion ext - no peripheral edema, pulses 2+ b/l Results & Data Results & Data Vital Signs (Past 12 Hours) Vital Signs Temp Pulse Resp BP BP Pulse Ox Pulse Ox 06/16/22 20:16 06/16/22 19:00 96 06/16/22 16:11 36.6 C 56 L 20 119/77 98 06/16/22 11:49 36.2 C L 69 18 112/75 92 O2 Del Method O2 Del Method 06/16/22 20:16 Room Air 06/16/22 19:00 Room Air 06/16/22 16:11 Room Air 06/16/22 11:49 Room Air Laboratory Results Laboratory Results - last 24 hr 06/16/22 06/16/22 06/16/22 06:55 07:45 11:33 Sodium 140 Potassium 3.3 L Chloride 103 Carbon Dioxide 29 Anion Gap 8 BUN 24 H Creatinine 0.86 Est Cr Clr Drug Dosing 80.4 Est GFR ( Amer) 104.0 Est GFR (Non-Af Amer) 89.7 BUN/Creatinine Ratio 27.9 H Glucose 150 H POC Glucose 171 H 139 H Calcium 8.6 06/16/22 06/16/22 16:14 19:52 Sodium Potassium Chloride Carbon Dioxide Anion Gap BUN Creatinine Est Cr Clr Drug Dosing Est GFR ( Amer) Est GFR (Non-Af Amer) BUN/Creatinine Ratio Glucose POC Glucose 144 H 160 H Calcium PG Care Time/CCT Total # of Minutes Spent Total Time Spent with Patient: Total time spent is greater than 50% in coordination of care (as documented) at patient's floor/unit and/or counseling patient: Coding Level of Care Code 90571 SUB INP/OBS CARE 2/35MIN Diagnoses Paroxysmal A-fib I48.0 SVT (supraventricular tachycardia) I47.1 Fall W19.XXXA Encounter type: initial encounter Left knee pain M25.562 COVID-19 U07.1 Parkinsonism G20 Cerebrovascular disease I67.9 Type 2 diabetes mellitus E11.9 BPH with urinary obstruction N40.1; N13.8 Chews tobacco Z72.0 Lumbar back pain M54.50 Hypokalemia E87.6 Cognitive impairment R41.89 Hypothyroidism E03.9 Constipation K59.00 (3) Fall Encounter type: initial encounter Qualified Code(s): W19.XXXA - Unspecified fall, initial encounter
[2022-06-17] MEDS: LEVOTHYROXINE SODIUM 125 MCG TABLET PO SCH (06:30)
[2022-06-17 08:06] LABS: BUN Creatinine Ratio 26.7 (10-20); Calcium 8.4 mg/dl (8.6-10.3); Creatinine Clr Calc Pharmacy 91.3 ml/min; Est GFR (Non-African American) 94.9 ml/min; Potassium 3.7 mmol/L (3.5-5.1)
[2022-06-17] MEDS: INSULIN ASPART PER UNIT CHARGE SC SCH ×4 (08:36→21:37)
[2022-06-17] MEDS: AMIODARONE 200 MG TAB PO SCH ×2 (09:34→18:23)
[2022-06-17] MEDS: POTASSIUM CHLORIDE CRTAB 20 MEQ TABCR PO SCH ×2 (09:34→22:19)
[2022-06-17] MEDS: CARBIDOPA/LEVODOPA 25/100MG TAB PO SCH ×3 (09:34→22:19)
[2022-06-17] MEDS: ACETAMINOPHEN 500 MG TAB PO SCH ×3 (09:34→22:16)
[2022-06-17] MEDS: ATORVASTATIN 40 MG TAB PO SCH (09:34)
[2022-06-17] MEDS: MAGNESIUM OXIDE 400 MG TAB PO SCH (09:34)
[2022-06-17] MEDS: NICOTINE 14 MG/24 HR PATCH TD SCH (09:34)
[2022-06-17] MEDS: traMADol HCL 50 MG TABLET PO SCH ×4 (09:41→22:17)
[2022-06-17] MEDS: LANTUS PER UNIT CHARGE SQ SCH (10:47)
[2022-06-17] MEDS: DOCUSATE SODIUM/SENNA 50/8.6MG TAB PO SCH (12:33)
[2022-06-17] MEDS: POLYETHYLENE (MIRALAX) 17 GM PACK PO SCH (12:33)
--- NOTE | 2022-06-17 12:59 | Cardiology Progress Note ---
Date of Service June 17, 2022 Assessment & Plan (1) Paroxysmal SVT (supraventricular tachycardia): (2) Cardiomyopathy: (3) Hypomagnesemia: (4) Hypokalemia: Plan Frequency of paroxysmal tachycardia diminishing steadily on amiodarone 200 mg twice daily. Would continue this dose upon discharge and arrange for follow-up with Dr. Nguyen, who will evaluate the patient for possible ablation procedure. Although the patient's dysrhythmias generally occur when there are electrolyte abnormalities and/or concurrent illness, he has had multiple episodes now and his rate is quite tachycardic, thus considering ablation for long-term management is quite reasonable. I did speak with his caregiver, Guerline Quinteros, and will keep her posted regarding any future interventions. Admission and Anticipated Discharge Date Admission Date: June 12, 2022 Subjective Doing well overall, he was comfortable this morning. Last episode of paroxysmal tachycardia was yesterday morning with rates of up to 174 bpm. Currently, sinus rhythm at 60 bpm. Physical Exam Physical Exam: No distress. BP mildly hypertensive. Pulse 60 bpm and regular. Skin: no ecchymoses or generalized lesions. HEENT: unremarkable. Neck: Jugular venous pulse unremarkable, no carotid bruits. Lungs: clear. Cardiac: regular rhythm, 2/6 basal systolic ejection murmur which is nonradiating, 2/6 apical holosystolic murmur radiating to the axilla, no diastolic murmur. Abdomen: benign. Extremities: no edema, pulses intact. Neurologic: normal affect and conversation, nonfocal. Results & Data Vital Signs (Past 12 Hours) Vital Signs Temp Pulse Resp BP Pulse Ox O2 Del Method 06/17/22 03:21 97.7 F 59 L 18 143/87 H 99 Room Air PG Care Time/CCT Total # of Minutes Spent Total Time Spent with Patient: Total time spent is greater than 50% in coordination of care (as documented) at patient's floor/unit and/or counseling patient: Coding Level of Care Code 35799 SUB INP/OBS CARE 2/35MIN Diagnoses Paroxysmal SVT (supraventricular tachycardia) I47.1 Cardiomyopathy I42.9 Hypomagnesemia E83.42 Hypokalemia E87.6
--- NOTE | 2022-06-17 20:12 | Hospitalist Progress Note ---
Date of Service June 17, 2022 Assessment & Plan (1) Paroxysmal A-fib: Plan: has prior h/o PAF - dates of such in the past uncertain. earlier in this stay (as well as during 12/2021 hospitalization) he has had numerous episodes of SVT. he converted to rapid a.fib on 06/13. rates improved with addition of metoprolol 25mg BID on top of the amiodarone drip. he converted back to NSR late 06/14. 06/16 - amio drip stopped; transitioned to PO amio 200mg BID; metoprolol stopped outpatient SVT ablation in near-future by Dr Wendy Nguyen is hopeful that if he performs SVT ablation perhaps he may not have a.fib either. Cont tele. Cont xarelto. (2) SVT (supraventricular tachycardia): Plan: Earlier in the stay had frequent runs with rates to 190+. Fortunately no symptoms and amazingly was hemodynamically stable despite the rapid HRs. During his 12/2021 hospitalization for L hip Fx s/p ORIF he had numerous runs of SVT as well. He ultimately required amiodarone due to the frequency of the episodes. This worked very well to control the rhythm. His SVT has improved in frequency and duration significantly with amiodarone infusion. He then converted to baseline NSR to a.fib on 06/13, then went back to NSR late in the evening on 06/14. Of note - his episodes often do break with vagal maneuvers - he is able to blow into a straw to break the SVT. see #1 re: plan for medications. (3) Fall: Plan: pre-hospital at [facility] perhaps weakness & confusion from COVID infection led to the fall PT, OT evals done -- advising SNF placement post discharge checked lumbar spine CT - no fractures checked L hip/pelvic x-rays - no fracture L knee CT without hemarthrosis or fracture. Small hematoma seen laterally c/w his physical exam. ice prn to left knee tylenol scheduled tramadol scheduled (4) Left knee pain: Plan: improved 2nd to trauma from his fall in the setting of chronic left knee DJD. x-rays of L knee from this admission negative for acute fracture. CT L knee w/o fracture; hematoma seen laterally. Cont tramadol 50mg QID scheduled. Could consider nucynta ER if additional pain relief is needed. Cont tylenol 1gm TID scheduled. (5) COVID-19: Plan: asymptomatic at this time remains stable in room air robust appetite CT chest neg for pneumonia defer on steroids defer on Remdesivir cont airborne isolation until ok from Infection Control standpoint to remove isolation - probably at day #10 from his positive test (6) Parkinsonism: Plan: patient on Rytary (extended release Carbidopa-Levodopa combo) as outpatient this med is not on formulary - pharmacy converted to formulary equivalents (7) Cerebrovascular disease: Plan: cont lipitor CPK wnl (8) Type 2 diabetes mellitus: Plan: pharmacy glycemic team managing cont to hold metformin cont basal-bolus insulin very good control lows resolved (9) BPH with urinary obstruction: Plan: Continue flomax Has urinary incontinence at baseline (10) Chews tobacco: Plan: Nicotine patch (11) Lumbar back pain: Plan: Due to his fall and likely osteoporosis obtained CT lumbar spine - no compression fracture seen has not complained of pain in a few days (12) Hypokalemia: Plan: replaced and resolved (13) Cognitive impairment: Plan: I have cared for him in the past and he seems to be about at baseline (I cared for him 12/2021). 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 Other? (14) Hypothyroidism: Plan: TSH 1.9 cont synthroid (15) Constipation: Plan: add senna/colace to his once daily miralax for bowel program shoot for 1 BM QOD Plan POA Guerline updated at bedside 48 hours ago dispo - SNF for rehab Admission and Anticipated Discharge Date Admission Date: June 12, 2022 Subjective tele - no a.fib, no SVT last 24 hours NSR only laying in bed during the visit no complaints left knee pain is scant at this point "I feel pretty good today" Review of Systems Review of Systems: cv - no chest pain pulm - no cough or dyspnea GI - no pain - using condom cath due to urinary incontinence Physical Exam Physical Exam: gen - thin, NAD, laying in bed comfortably mouth - MMM heart - RRR, s1 s2, no murmur lungs - CTA b/l abd - soft NT ND BS+ skin - left knee bruising also present with small hematoma laterally - this is small & unchanged musculo - passive ROM of left knee today does not cause any pain or tenderness; no joint effusion ext - no peripheral edema, pulses 2+ b/l psych - pleasant confusion (baseline) Results & Data Results & Data Vital Signs (Past 12 Hours) Vital Signs Temp Pulse Resp BP BP Pulse Ox O2 Del Method 06/17/22 19:16 36.7 C 63 20 126/84 96 Room Air 06/17/22 15:44 36.5 C 64 19 108/74 95 Room Air Laboratory Results Laboratory Results - last 24 hr 06/17/22 06/17/22 06/17/22 07:15 11:49 16:44 Sodium 138 Potassium 3.7 Chloride 104 Carbon Dioxide 28 Anion Gap 6 BUN 20 Creatinine 0.75 Est Cr Clr Drug Dosing 91.3 Est GFR ( Amer) 110.0 Est GFR (Non-Af Amer) 94.9 BUN/Creatinine Ratio 26.7 H Glucose 113 H POC Glucose 265 H 76 Calcium 8.4 L 06/17/22 20:04 Sodium Potassium Chloride Carbon Dioxide Anion Gap BUN Creatinine Est Cr Clr Drug Dosing Est GFR ( Amer) Est GFR (Non-Af Amer) BUN/Creatinine Ratio Glucose POC Glucose 111 H Calcium PG Care Time/CCT Total # of Minutes Spent Total Time Spent with Patient: Total time spent is greater than 50% in coordination of care (as documented) at patient's floor/unit and/or counseling patient: Coding Level of Care Code 58802 SUB INP/OBS CARE 04/12MIN Diagnoses Paroxysmal A-fib I48.0 SVT (supraventricular tachycardia) I47.1 Fall W19.XXXA Encounter type: initial encounter Left knee pain M25.562 COVID-19 U07.1 Parkinsonism G20 Cerebrovascular disease I67.9 Type 2 diabetes mellitus E11.9 BPH with urinary obstruction N40.1; N13.8 Chews tobacco Z72.0 Lumbar back pain M54.50 Hypokalemia E87.6 Cognitive impairment R41.89 Hypothyroidism E03.9 Constipation K59.00 (3) Fall Encounter type: initial encounter Qualified Code(s): W19.XXXA - Unspecified fall, initial encounter
[2022-06-17] MEDS: TAMSULOSIN HCL 0.4 MG CAP PO SCH (22:20)
[2022-06-17] MEDS: RIVAROXABAN 20 MG TAB PO SCH (22:20)
[2022-06-18] MEDS: LEVOTHYROXINE SODIUM 125 MCG TABLET PO SCH (06:50)
[2022-06-18] MEDS: INSULIN ASPART PER UNIT CHARGE SC SCH ×4 (09:00→20:39)
[2022-06-18] MEDS: NICOTINE 14 MG/24 HR PATCH TD SCH (09:11)
[2022-06-18] MEDS: ACETAMINOPHEN 500 MG TAB PO SCH ×3 (09:12→20:22)
[2022-06-18] MEDS: CARBIDOPA/LEVODOPA 25/100MG TAB PO SCH ×3 (09:12→20:21)
[2022-06-18] MEDS: DOCUSATE SODIUM/SENNA 50/8.6MG TAB PO SCH (09:12)
[2022-06-18] MEDS: POLYETHYLENE (MIRALAX) 17 GM PACK PO SCH (09:12)
[2022-06-18] MEDS: traMADol HCL 50 MG TABLET PO SCH ×4 (09:12→20:28)
[2022-06-18] MEDS: MAGNESIUM OXIDE 400 MG TAB PO SCH (09:12)
[2022-06-18] MEDS: ATORVASTATIN 40 MG TAB PO SCH (09:12)
[2022-06-18] MEDS: AMIODARONE 200 MG TAB PO SCH ×2 (09:12→18:05)
--- NOTE | 2022-06-18 10:13 | Cardiology Progress Note ---
Date of Service June 18, 2022 Assessment & Plan (1) Paroxysmal SVT (supraventricular tachycardia): (2) Cardiomyopathy: (3) Hypomagnesemia: (4) Hypokalemia: Plan Still with occasional recurrence but generally controlled rhythm on amiodarone 200 mg twice daily. Would continue this dose upon discharge and arrange for follow-up with Dr. Nguyen, who will evaluate the patient for possible ablation procedure. Anticoagulated with rivaroxaban. No new recommendations. Admission and Anticipated Discharge Date Admission Date: June 12, 2022 Subjective No complaints. Did have brief recurrences of PSVT yesterday afternoon, none since. Denies chest pain, dyspnea, or palpitations. Physical Exam Physical Exam: No distress. BP mildly hypertensive. Pulse 68 bpm and regular. Further exam not performed (COVID precautions) Results & Data Vital Signs (Past 12 Hours) Vital Signs Temp Pulse Resp BP BP Pulse Ox O2 Del Method 06/18/22 07:50 97.5 F L 69 18 148/89 H 97 Room Air 06/18/22 03:14 98.2 F 65 18 161/91 H 97 Room Air 06/17/22 23:16 98.2 F 66 15 152/90 H 96 Room Air PG Care Time/CCT Total # of Minutes Spent Total Time Spent with Patient: Total time spent is greater than 50% in coordination of care (as documented) at patient's floor/unit and/or counseling patient: Coding Level of Care Code 94467 SUB INP/OBS CARE 25MIN Diagnoses Paroxysmal SVT (supraventricular tachycardia) I47.1 Cardiomyopathy I42.9 Hypomagnesemia E83.42 Hypokalemia E87.6
[2022-06-18] MEDS: LANTUS PER UNIT CHARGE SQ SCH (12:16)
[2022-06-18] MEDS ORDERED: bisacodyL 10 MG SUPP PR STA (16:47)
--- NOTE | 2022-06-18 19:41 | Hospitalist Progress Note ---
Date of Service June 18, 2022 Assessment & Plan (1) Paroxysmal A-fib: Plan: has prior h/o PAF - dates of such in the past uncertain. earlier in this stay (as well as during 12/2021 hospitalization) he has had numerous episodes of SVT. he converted to rapid a.fib on 06/13. rates improved with addition of metoprolol 25mg BID on top of the amiodarone drip. he converted back to NSR late 06/14. 06/16 - amio drip stopped; transitioned to PO amio 200mg BID; metoprolol stopped has had no PAF since 06/14/22. outpatient SVT ablation in near-future by Dr Wendy Nugyen is hopeful that if he performs SVT ablation perhaps he may not have a.fib either. Cont tele. Cont xarelto. Cont amio 200mg BID. (2) SVT (supraventricular tachycardia): Plan: Earlier in the stay had very frequent runs with rates to 190+. Fortunately no symptoms and amazingly was hemodynamically stable despite the rapid HRs. During his 12/2021 hospitalization for L hip Fx s/p ORIF he had numerous runs of SVT as well. He ultimately required amiodarone due to the frequency of the episodes. This worked very well to control the rhythm. His SVT has improved in frequency and duration significantly with amiodarone ( infusion then PO amio ). Of note - his episodes often do break with vagal maneuvers - he is able to blow into a straw to break the SVT. see #1 re: plan for medications. (3) Fall: Plan: pre-hospital at [facility] perhaps weakness & confusion from COVID infection led to the fall PT, OT evals done -- advising SNF placement post discharge checked lumbar spine CT - no fractures checked L hip/pelvic x-rays - no fracture L knee CT without hemarthrosis or fracture. Small hematoma seen laterally c/w his physical exam. switch ice to heat at this point to aid in resolution of soft tissue hematoma left lateral knee cont tylenol scheduled along with tramadol scheduled (4) Left knee pain: Plan: improved/resolving 2nd to trauma from his fall in the setting of chronic left knee DJD. x-rays of L knee from this admission negative for acute fracture. CT L knee w/o fracture; hematoma seen laterally. Cont tramadol 50mg QID scheduled. Could consider nucynta ER if additional pain relief is needed. Cont tylenol 1gm TID scheduled. Switch ice to heat (5) COVID-19: Plan: asymptomatic at this time remains stable in room air robust appetite CT chest neg for pneumonia defer on steroids defer on Remdesivir cont airborne isolation until ok from Infection Control standpoint to remove isolation - probably at day #10 from his positive test (date of + test was 06/11/22) (6) Parkinsonism: Plan: patient on Rytary (extended release Carbidopa-Levodopa combo) as outpatient this med is not on formulary - pharmacy converted to formulary equivalents (7) Cerebrovascular disease: Plan: cont lipitor CPK wnl (8) Type 2 diabetes mellitus: Plan: pharmacy glycemic team managing cont to hold metformin cont basal-bolus insulin very good control lows resolved (9) BPH with urinary obstruction: Plan: Continue flomax Has urinary incontinence at baseline (10) Chews tobacco: Plan: Nicotine patch (11) Lumbar back pain: Plan: Due to his fall and likely osteoporosis obtained CT lumbar spine last week - no compression fracture seen has not complained of pain since last week (12) Hypokalemia: Plan: replaced and resolved (13) Cognitive impairment: Plan: I have cared for him in the past and he seems to be about at baseline (I cared for him 12/2021). 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 Other? (14) Hypothyroidism: Plan: TSH 1.9 cont synthroid (15) Constipation: Plan: cont senna/colace + once daily miralax for bowel program shoot for 1 BM QOD no BM in 2+ days thus give dulcolax suppos today x 1 Plan POA Guerline updated by phone this evening dispo - SNF for rehab Admission and Anticipated Discharge Date Admission Date: June 12, 2022 Subjective no issues overnight he was sleeping when I came to see him easily awoke offered no complaints brief episode of self-terminated SVT yesterday afternoon - nothing since Review of Systems Review of Systems: cv - no cp, no orthopnea pulm - no dyspnea or cough GI - no abd pain, nausea or emesis; no BM in 2 days per staff gen - eating well Physical Exam Physical Exam: gen - thin, NAD, laying in bed comfortably mouth - MMM heart - RRR, s1 s2, no murmur lungs - CTA b/l abd - soft NT ND BS+ skin - left knee bruising also present with small hematoma laterally - this is small & unchanged ext - no peripheral edema, pulses 2+ b/l psych - baseline, mild pleasant confusion Results & Data Results & Data Vital Signs (Past 12 Hours) Vital Signs Temp Pulse Pulse Resp BP Pulse Ox O2 Del Method 06/18/22 15:25 36.3 C L 59 L 20 138/87 96 Room Air 06/18/22 08:00 60 06/18/22 11:16 36.3 C L 69 20 128/78 94 Room Air 06/18/22 07:50 36.4 C L 69 18 148/89 H 97 Room Air Laboratory Results Laboratory Results - last 24 hr 06/17/22 06/18/22 06/18/22 20:04 07:40 11:07 POC Glucose 111 H 115 H 181 H 06/18/22 16:36 POC Glucose 70 PG Care Time/CCT Total # of Minutes Spent Total Time Spent with Patient: Total time spent is greater than 50% in coordination of care (as documented) at patient's floor/unit and/or counseling patient: Coding Level of Care Code 73079 SUB INP/OBS CARE 2/35MIN Diagnoses Paroxysmal A-fib I48.0 SVT (supraventricular tachycardia) I47.1 Fall W19.XXXA Encounter type: initial encounter Left knee pain M25.562 COVID-19 U07.1 Parkinsonism G20 Cerebrovascular disease I67.9 Type 2 diabetes mellitus E11.9 BPH with urinary obstruction N40.1; N13.8 Chews tobacco Z72.0 Lumbar back pain M54.50 Hypokalemia E87.6 Cognitive impairment R41.89 Hypothyroidism E03.9 Constipation K59.00 (3) Fall Encounter type: initial encounter Qualified Code(s): W19.XXXA - Unspecified fall, initial encounter
[2022-06-18] MEDS: RIVAROXABAN 20 MG TAB PO SCH (20:21)
[2022-06-18] MEDS: TAMSULOSIN HCL 0.4 MG CAP PO SCH (20:22)
[2022-06-19] MEDS: LEVOTHYROXINE SODIUM 125 MCG TABLET PO SCH (06:28)
[2022-06-19] MEDS: DOCUSATE SODIUM/SENNA 50/8.6MG TAB PO SCH (09:54)
[2022-06-19] MEDS: AMIODARONE 200 MG TAB PO SCH ×2 (09:54→17:41)
[2022-06-19] MEDS: POLYETHYLENE (MIRALAX) 17 GM PACK PO SCH (09:54)
[2022-06-19] MEDS: ATORVASTATIN 40 MG TAB PO SCH (09:54)
[2022-06-19] MEDS: NICOTINE 14 MG/24 HR PATCH TD SCH (09:54)
[2022-06-19] MEDS: MAGNESIUM OXIDE 400 MG TAB PO SCH (09:55)
[2022-06-19] MEDS: CARBIDOPA/LEVODOPA 25/100MG TAB PO SCH ×3 (09:55→21:03)
[2022-06-19] MEDS: traMADol HCL 50 MG TABLET PO SCH ×4 (09:55→21:03)
[2022-06-19] MEDS: ACETAMINOPHEN 500 MG TAB PO SCH ×3 (09:55→21:03)
--- NOTE | 2022-06-19 10:56 | Cardiology Progress Note ---
Date of Service June 19, 2022 Assessment & Plan (1) Paroxysmal SVT (supraventricular tachycardia): Plan: Continue amiodarone 200 mg twice daily upon discharge. Arrange follow-up with Dr. Nguyen for evaluation of possible ablation procedure. Continue rivaroxaban for anticoagulation. (2) Cardiomyopathy: Plan: Compensated. Admission and Anticipated Discharge Date Admission Date: June 12, 2022 Subjective Uneventful night, no specific complaints. Telemetry showed sinus rhythm at 60 to 70 bpm, no further atrial tachydysrhythmias. Physical Exam Physical Exam: No distress. BP mildly hypertensive. Pulse 68 bpm and regular. Further exam not performed (COVID precautions) Results & Data Vital Signs (Past 12 Hours) Vital Signs Temp Pulse Pulse Resp BP Pulse Ox O2 Del Method 06/19/22 07:45 97.9 F 67 18 163/90 H 98 Room Air 06/19/22 02:59 97.9 F 62 18 148/70 H 95 Room Air 06/18/22 23:30 63 06/18/22 23:12 98.1 F 64 18 150/72 H 95 Room Air PG Care Time/CCT Total # of Minutes Spent Total Time Spent with Patient: Total time spent is greater than 50% in coordination of care (as documented) at patient's floor/unit and/or counseling patient: Coding Level of Care Code 05371 SUB INP/OBS CARE 1/25MIN Diagnoses Paroxysmal SVT (supraventricular tachycardia) I47.1 Cardiomyopathy I42.9
[2022-06-19] MEDS: INSULIN ASPART PER UNIT CHARGE SC SCH ×4 (11:05→20:53)
[2022-06-19] MEDS: LANTUS PER UNIT CHARGE SQ SCH (11:06)
--- NOTE | 2022-06-19 14:07 | Pharmacy Report ---
Pharmacy Glycemic Short Note 2 - Date of Service June 19, 2022 - Glycemic Short BSG Results (Last 24 hours): 06/18/22 06/18/22 06/19/22 16:36 20:11 07:42 POC Glucose 70 125 H 157 H 06/19/22 11:44 POC Glucose 253 H OUTPATIENT ANTIDIABETIC REGIMEN: * Lantus 19 units SC AM * Novolog 5 units SC TID before meals * Metformin ER 500mg PO BID * HbA1c: 6.5% (05/23/22) ASSESSMENT: 06/19/22 * Yesterday, patient's BSGs were 811-076-70-125 mg/dL. Patient received 23 units of insulin (15 of basal and 8 units of bolus). * Fasting today is 157 mg/dL which is in goal range. Continue Lantus. * Patient continues to over-correct whenever BSGs > 180 mg/dL. Loosen CF slightly. * Will tighten CR as patient's BSGs are high at lunch. 06/16: * On 06/15 and 06/16, the patient has received 22 and 27 total units of insulin respectively- both of which were ~2/3 basal insulin. * Fasting BSG's have been well within goal range. * Prandial and HS BSG's have largely been within the upper end of goal range to slightly above goal. Patient did experience one instance of hypoglycemia at dinnertime on 06/15, at which his BSG was 61 mg/dL. Patient may benefit from a loosening in correction factor, given that the dinner BSG's have been low on several occasions throughout the admission following high lunch values. 06/14: * Lars received 24 units of insulin yesterday, 15 units basal + 9 units bolus. BSGs were: 228-407-94-120 mg/dL. * Fasting BSG this AM was 149 mg/dL. Remains on amiodarone infusion. * No change to basal regimen. * Dinner BSG dropped last evening which is likely related to stacking of AM and Lunch bolus doses. * Loosened CR this morning. 06/12: * Mr Kumar is a 67yo diabetic M admitted yesterday for knee pain after a fall at home. Pt was found to be COVID-19 positive at time of admission. * Pt's BSGs were markedly elevated on admission (BSG 347mg/dL), however, BSGs are much improved today. * Pharmacy will continue to follow and adjust regimen as indicated. PLAN FOR INPATIENT GLYCEMIC CONTROL: * Hold outpatient oral diabetes medications * Basal insulin * Lantus 15 units SC daily * Bolus insulin * NovoLog per scale ACHS or Q6hrs while NPO * Goal Range: Low 120 mg/dL - High 160 mg/dL * Correction Factor: 60 mg/dL/unit * Nutritional / Prandial insulin per carb ratio of 1 unit per 9 grams CHO consumed
--- NOTE | 2022-06-19 20:21 | Hospitalist Progress Note ---
Date of Service June 19, 2022 Assessment & Plan (1) Paroxysmal A-fib: Plan: has prior h/o PAF - dates of such in the past uncertain. earlier in this stay (as well as during 12/2021 hospitalization) he has had numerous episodes of SVT. During this stay he converted to rapid a.fib on 06/13. rates improved with addition of metoprolol 25mg BID on top of the amiodarone drip. he converted back to NSR late 06/14. 06/16 - amio drip stopped; transitioned to PO amio 200mg BID; metoprolol stopped at that time has had no PAF since 06/14/22. outpatient SVT ablation in near-future by Dr Nguyen being planned Dr Nguyen is hopeful that if he performs SVT ablation perhaps he may have less a.fib or even resolution of such Cont tele. Cont xarelto 20mg daily. Cont amio 200mg BID. (2) SVT (supraventricular tachycardia): Plan: Earlier in the stay had very frequent runs with rates to 190BPM+. Fortunately no symptoms and amazingly was hemodynamically stable despite the rapid HRs. During his 12/2021 hospitalization for L hip Fx s/p ORIF he had numerous runs of SVT as well. He ultimately required amiodarone due to the frequency of the episodes. This worked very well to control the rhythm during that 2021 hospital stay. His SVT has improved in frequency and duration significantly with amiodarone ( infusion then PO amio ). No SVT in 48+ hours. Of note - his episodes often do break with vagal maneuvers - he is able to blow into a straw to break the SVT. see #1 re: plan for medications. (3) Fall: Plan: pre-hospital at [facility] perhaps weakness & confusion from COVID infection led to the fall PT, OT evals done -- advising SNF placement post discharge checked lumbar spine CT - no fractures checked L hip/pelvic x-rays - no fracture L knee CT without hemarthrosis or fracture. Small hematoma seen laterally c/w his physical exam. cont heat packs prn to hasten resolution of the small hematoma cont tylenol scheduled along with tramadol scheduled for pain (4) Left knee pain: Plan: resolved 2nd to trauma from his fall in the setting of chronic left knee DJD. x-rays of L knee from this admission negative for acute fracture. CT L knee w/o fracture; hematoma seen laterally. Cont tramadol 50mg QID scheduled. Could consider nucynta ER if additional pain relief is needed but to date he has been very comfortable. Cont tylenol 1gm TID scheduled. Switch ice to heat prn to L knee to hasten resolution of hematoma. (5) COVID-19: Plan: cont to remain asymptomatic remains stable in room air robust appetite CT chest neg for pneumonia defer on steroids defer on Remdesivir cont airborne isolation until ok from Infection Control standpoint to remove isolation - probably at day #10 from his positive test (date of + test was 06/11/22) (6) Parkinsonism: Plan: patient on Rytary (extended release Carbidopa-Levodopa combo) as outpatient this med is not on formulary - pharmacy converted to formulary equivalents (7) Cerebrovascular disease: Plan: cont lipitor CPK wnl (8) Type 2 diabetes mellitus: Plan: pharmacy glycemic team managing cont to hold metformin cont basal-bolus insulin very good control lows resolved (9) BPH with urinary obstruction: Plan: Continue flomax Has urinary incontinence at baseline (10) Chews tobacco: Plan: Nicotine patch (11) Lumbar back pain: Plan: Due to his fall and likely osteoporosis obtained CT lumbar spine - no compression fracture seen has not complained of pain since early in admission (12) Hypokalemia: Plan: replaced and resolved (13) Cognitive impairment: Plan: I have cared for him in the past and he seems to be about at baseline (I cared for him 12/2021). 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 Other? (14) Hypothyroidism: Plan: TSH 1.9 cont synthroid (15) Constipation: Plan: cont senna/colace + once daily miralax for bowel program Plan POA [facility] updated by phone yesterday evening dispo - SNF or [facility] for rehab he is medically stable for d/c Admission and Anticipated Discharge Date Admission Date: June 12, 2022 Subjective multiple stools overnight eating well tele with no PAF or SVT sitting in chair during the visit feels good denies any left knee pain denies any other complaints Review of Systems Review of Systems: cv - no chest pain pulm - no cough, no dyspnea gi - no abd pain, nausea, emesis gu - episodes of urinary incontinence Physical Exam Physical Exam: gen - thin, NAD, sitting in chair, looks good mouth - MMM; poor dentition heart - RRR, s1 s2, no murmur lungs - CTA b/l abd - soft NT ND BS+ skin - left knee bruising anteriorly unchanged; small hematoma laterally unchanged - not any larger than prior exams ext - no peripheral edema, pulses 2+ b/l psych - baseline, mild pleasant confusion Results & Data Results & Data Vital Signs (Past 12 Hours) Vital Signs Temp Pulse Resp BP Pulse Ox O2 Del Method 06/19/22 16:00 36.4 C L 92 H 18 138/98 98 Room Air 06/19/22 11:49 37.0 C 97 H 18 163/103 H 99 Room Air Laboratory Results Laboratory Results - last 24 hr 06/19/22 06/19/22 06/19/22 07:42 11:44 16:41 POC Glucose 157 H 253 H 216 H PG Care Time/CCT Total # of Minutes Spent Total Time Spent with Patient: Total time spent is greater than 50% in coordination of care (as documented) at patient's floor/unit and/or counseling patient: Coding Level of Care Code 85659 SUB INP/OBS CARE 04/12MIN Diagnoses Paroxysmal A-fib I48.0 SVT (supraventricular tachycardia) I47.1 Fall W19.XXXA Encounter type: initial encounter Left knee pain M25.562 COVID-19 U07.1 Parkinsonism G20 Cerebrovascular disease I67.9 Type 2 diabetes mellitus E11.9 BPH with urinary obstruction N40.1; N13.8 Chews tobacco Z72.0 Lumbar back pain M54.50 Hypokalemia E87.6 Cognitive impairment R41.89 Hypothyroidism E03.9 Constipation K59.00 (3) Fall Encounter type: initial encounter Qualified Code(s): W19.XXXA - Unspecified fall, initial encounter
[2022-06-19] MEDS: TAMSULOSIN HCL 0.4 MG CAP PO SCH (21:03)
[2022-06-19] MEDS: RIVAROXABAN 20 MG TAB PO SCH (21:03)
[2022-06-20] MEDS: LEVOTHYROXINE SODIUM 125 MCG TABLET PO SCH (06:23)
[2022-06-20] MEDS: INSULIN ASPART PER UNIT CHARGE SC SCH ×2 (08:42→12:30)
[2022-06-20] MEDS: ACETAMINOPHEN 500 MG TAB PO SCH ×2 (08:47→14:32)
[2022-06-20] MEDS: AMIODARONE 200 MG TAB PO SCH (08:47)
[2022-06-20] MEDS: CARBIDOPA/LEVODOPA 25/100MG TAB PO SCH ×2 (08:47→14:32)
[2022-06-20] MEDS: MAGNESIUM OXIDE 400 MG TAB PO SCH (08:47)
[2022-06-20] MEDS: ATORVASTATIN 40 MG TAB PO SCH (08:48)
[2022-06-20] MEDS: DOCUSATE SODIUM/SENNA 50/8.6MG TAB PO SCH (08:48)
[2022-06-20] MEDS: NICOTINE 14 MG/24 HR PATCH TD SCH (08:48)
[2022-06-20] MEDS: POLYETHYLENE (MIRALAX) 17 GM PACK PO SCH (08:48)
[2022-06-20] MEDS: LANTUS PER UNIT CHARGE SQ SCH (08:55)
--- NOTE | 2022-06-20 08:56 | Hospitalist Progress Note ---
Date of Service June 20, 2022 Assessment & Plan (1) Paroxysmal A-fib: Plan: acute afib rvr with history of choronic afib, unstable moderate risk . Also bouts of SVT RVR improved with addition of metoprolol 25mg BID on top of the amiodarone drip. converted back to NSR 06/14. transitioned to PO amio 200mg BID; metoprolol stopped has had no PAF since 06/14/22. Xarelto for thrombotic prevention Dr Nguyen is planning outpatient SVT ablation, hopeful to improve SVT events also SVT has been responsive to vagal manuvers in the past . (2) Fall: Plan: acute self limited but prolonged, moderate risk as pain impacts ambulation pre-hospital at [facility] checked lumbar spine CT - no fractures checked L hip/pelvic x-rays - no fracture L knee CT without hemarthrosis or fracture. Small hematoma seen laterally c/w his physical exam. cont tylenol scheduled along with tramadol scheduled for pain PT, OT evals done -- advising SNF placement post discharge (3) COVID-19: Plan: acute, stable cont to remain asymptomatic CT chest neg for pneumonia did not meet criteria for steroids or Remdesivir cont airborne isolation likely 06/22/22 (4) Parkinsonism: Plan: chronic stable patient on Rytary (extended release Carbidopa-Levodopa combo) as outpatient but inpacts fall and recovery this med is not on formulary - pharmacy converted to formulary equivalents pt has some cognitive deficits that are likely related as well as movement issues that place at risk for falls (5) Type 2 diabetes mellitus: Plan: [facility] stable pharmacy glycemic team managing cont to hold metformin cont basal-bolus insulin (6) BPH with urinary obstruction: Plan: chronic stable , Continue flomax Has urinary incontinence at baseline (7) Chews tobacco: Plan: toobacco abuse, chronic, ofered Nicotine patch cessation councelling offered (8) Constipation: Plan: cont senna/colace + once daily miralax for bowel program Admission and Anticipated Discharge Date Admission Date: June 12, 2022 Results & Data Results & Data Vital Signs (Past 12 Hours) Vital Signs Temp Pulse Pulse Resp BP BP Pulse Ox 06/20/22 07:33 98.1 F 60 18 155/92 H 99 06/20/22 03:29 98.6 F 65 18 167/93 H 98 06/19/22 23:49 58 L 06/19/22 23:32 98.6 F 57 L 18 162/96 H 98 O2 Del Method 06/20/22 07:33 Room Air 06/20/22 03:29 Room Air 06/19/22 23:49 06/19/22 23:32 Room Air PG Care Time/CCT Total # of Minutes Spent Total Time Spent with Patient: Total time spent is greater than 50% in coordination of care (as documented) at patient's floor/unit and/or counseling patient: Coding Diagnoses Paroxysmal A-fib I48.0 Fall W19.XXXA Encounter type: initial encounter COVID-19 U07.1 Parkinsonism G20 Type 2 diabetes mellitus E11.9 BPH with urinary obstruction N40.1; N13.8 Chews tobacco Z72.0 Constipation K59.00 (2) Fall Encounter type: initial encounter Qualified Code(s): W19.XXXA - Unspecified fall, initial encounter
[2022-06-20] MEDS: traMADol HCL 50 MG TABLET PO SCH ×2 (09:03→14:33)
--- NOTE | 2022-06-20 13:52 | Cardiology Progress Note ---
Date of Service June 20, 2022 Assessment & Plan (1) Paroxysmal SVT (supraventricular tachycardia): Plan: Continue amiodarone 200 mg twice daily upon discharge. Arrange follow-up with Dr. Nguyen for evaluation of possible ablation procedure. Continue rivaroxaban for anticoagulation. (2) Cardiomyopathy: Plan: Compensated. Admission and Anticipated Discharge Date Admission Date: June 12, 2022 Subjective Doing well, no dysrhythmias for several days now. He denies chest pain, dyspnea, or subjective palpitations. Physical Exam Physical Exam: No distress. BP normotensive. Pulse 84 bpm and regular. Further exam not performed (COVID precautions) Results & Data Vital Signs (Past 12 Hours) Vital Signs Temp Pulse Pulse Resp BP BP Pulse Ox 06/20/22 05:59 54 L 06/20/22 11:36 97.7 F 84 18 129/87 96 06/20/22 07:33 98.1 F 60 18 155/92 H 99 06/20/22 03:29 98.6 F 65 18 167/93 H 98 O2 Del Method 06/20/22 05:59 06/20/22 11:36 Room Air 06/20/22 07:33 Room Air 06/20/22 03:29 Room Air PG Care Time/CCT Total # of Minutes Spent Total Time Spent with Patient: Total time spent is greater than 50% in coordination of care (as documented) at patient's floor/unit and/or counseling patient: Coding Level of Care Code 45864 SUB INP/OBS CARE 1/25MIN Diagnoses Paroxysmal SVT (supraventricular tachycardia) I47.1 Cardiomyopathy I42.9
--- NOTE | 2022-06-20 16:13 | Discharge Summary ---
Date of Service June 20, 2022 Admission HPI Per Admitting Provider Lars is a 67 year old male resident at the [facility] with a PMH significant for Parkinsonism with gait ataxia (follows with [facility]), paroxysmal A. fib on Xarelto, Paroxysmal SVT, hypertension, hyperlipidemia, previous CVA with cognitive impairment, previous hx of alcoholism, DM2, hypothyroidism, and heavy tobacco chew use who presented to them [facility] ED on 06/11/22 with a chief complaint of left knee pain. In the ED the patient was found to be afebrile, hemodynamically stable, and stable on RA. Labs were remarkable for a WBC WNL, stable Hgb and platelets, lymphocyte count of 0.94, INR of 1.2, stable renal function at 0.85, glucose of 347, electrolytes WNL, total Bili of 1.1 otherwise LFTs WNL, procal pending. CT of the head was read as No acute intracranial hemorrhage, no evidence of acute territorial infarction or other acute intracranial disease process.. CT of the chest was read as Right upper lung airspace opacity is nonspecific and may represent aspiration, pneumonia, atelectasis, or underlying mass. Evaluation with CT chest is recommended.. CT of the the cervical spine was read as Degenerative changes without evidence of acute bony injury.. Venous Doppler of the LE LT was read as Currently there is normal compressibility of the deep venous system from the common femoral vein through the proximal calf veins. No superficial venous thrombosis is identified.. Lt k nee xray was read as Degenerative changes without evidence of acute injury.. Per the ED staff, while the patient has a history of cognitive impairment his friend/HIPPA contact thinks he is more fatigued and confused than baseline. The patient was reportedly covered in feces in the ED. The ED staff spoke with the [facility] staff who explained that the patient is typically very independent at their facility and normally only needs a little bit of help throughout the day. At the time of the exam the patient was lying in bed in no acute distress, he was trying to sit up in bed when I first walked in. The patient is a very poor historian. When asked why he was brought into the ED he states "I fell". The only other details he was able to provide me was that the fall was "a few days ago". When I go thought a full ROS with him he denies any complaints or problems. When I asked how he was feeling he said "like shit", he cannot give anymore detail than that. He was only oriented to himself at the time of the exam. He is convinced that we are in [place] and no at [facility], even after I showed him my badge. I tried to call [facility] to obtain more information but they did not roller picker. Due to his baseline mental status and possible increased confusion I was unable to discuss code status with him. Per review, the patient has always been a Full Code on previous admissions; will keep him as a full code for now. Principal Diagnosis Atrial fibrillation Mechanical fall with resultant knee pain from contusion COVID infection Parkinson's disease Discharge Exam Patient is awake and alert cardiac exam shows rhythm controlled lungs are clear the wheeze or crackles Discharge Data Allergies Allergy/AdvReac Type Severity Reaction Status Date / Time No Known Allergies Allergy Verified 06/11/22 12:05 Consultations 06/11/22 15:38 ED Decision to Admit Stat 06/13/22 13:44 Consult Cardiology Routine Ordered Studies 06/11/22 10:17 US venous doppler LE LT Stat 06/11/22 12:09 CT cervical spine wo con Stat CT head/brain wo con Stat 06/11/22 15:36 CT chest diagnostic w con Stat 06/13/22 15:47 CT knee LT wo con Urgent CT lumbar spine wo con Urgent Hospital Course (1) Paroxysmal A-fib: acute afib rvr with history of choronic afib, unstable moderate risk . Also bouts of SVT RVR improved with addition of metoprolol 25mg BID on top of the amiodarone drip. converted back to NSR 06/14. transitioned to PO amio 200mg BID; metoprolol stopped has had no PAF since 06/14/22. Xarelto for thrombotic prevention Dr Nguyen is planning outpatient SVT ablation, hopeful to improve SVT events also SVT has been responsive to vagal manuvers in the past . (2) Fall: acute self limited but prolonged, moderate risk as pain impacts ambulation pre-hospital at [facility] checked lumbar spine CT - no fractures checked L hip/pelvic x-rays - no fracture L knee CT without hemarthrosis or fracture. Small hematoma seen laterally c/w his physical exam. cont tylenol scheduled along with tramadol scheduled for pain PT, OT evals done -- transfer to SNF (3) COVID-19: acute, stable cont to remain asymptomatic CT chest neg for pneumonia did not meet criteria for steroids or Remdesivir cont airborne isolation likely 06/22/22 (4) Parkinsonism: chronic stable patient on Rytary (extended release Carbidopa-Levodopa combo) as outpatient but inpacts fall and recovery this med is not on formulary - pharmacy converted to formulary equivalents pt has some cognitive deficits that are likely related as well as movement issues that place at risk for falls (5) Type 2 diabetes mellitus: [facility] stable pharmacy glycemic team managing resume metformin cont basal-bolus insulin, basal insulin below typical at home dose, watch for hypoglycemia (6) BPH with urinary obstruction: chronic stable , Continue flomax Has urinary incontinence at baseline (7) Chews tobacco: toobacco abuse, chronic, ofered Nicotine patch cessation councelling offered (8) Constipation: cont senna/colace + once daily miralax for bowel program Total Time Total Time Spent Total Time Spent (In Minutes): It required greater than 30 minutes to prepare this patient for discharge Discharge Plan Discharge Items Patient Disposition: Transfer Halfway Fac Reason For Visit: FALL, LEFT KNEE PAIN Discharge Diagnosis: mechanical fall atrial fibrillation knee pain parkinsons disease Condition on Discharge: Good Activity: Per Instructions section Activity Comment: PT/OT Non-emergency contact: Primary Care Provider Call non-emergency contact if: your symptoms worsen Follow-up/Referrals: Monty Rodriges MD [Physician] - 06/27/22 1:30 pm Jg Valdez DO [Primary Care Provider] - 06/26/22 12:00 pm Diet: Regular Addtl Attending Provider Instructions: pain control and physical therapy continue to follow neurology for parkinsons disease follow up with cardiology for your irregular heart beat Pending Studies at Discharge: No Stand-Alone Forms: My [facility] [place] delicious Skilled Items Patient informed of condition?: Yes DNR: No Discharge Level of Care: Skilled Communicable Disease: Yes Discharge Prognosis: Stable Lines: None Urinary Catheter: No Medications and DC Order Prescriptions: New nicotine 7 mg/24 hr Patch 24 Hour 14 mg transdermal QAM Qty: 14 0RF amiodarone 200 mg Tablet 200 mg PO BIDM Qty: 60 0RF acetaminophen [Tylenol Extra Strength] 500 mg Tablet 1,000 mg PO TID Qty: 90 0RF Continued (DME) Wheeled Walker Misc See Rx Instructions .Route Qty: 1 0RF Rx Instructions: As directed. with seat if possible metformin 500 mg tablet extended release 24 hr 500 mg PO BID Qty: 180 3RF tramadol 50 mg tablet 50 mg PO TID Qty: 90 1RF (DME) Novofine Autocover 30 gauge x 1/3" needle See Rx Instructions .Route Qty: 120 11RF Rx Instructions: use for insuling injections QID (DME) Wheelchair (Manual) Device See Rx Instructions .Route Qty: 1 0RF Rx Instructions: Standard wheelchair with leg rests. [id number] exam on 04/14/22. Estimated length of need: Lifetime. (DME) lancets [ReadyLance Safety Lancets] [facility] gauge [facility] See Rx Instructions .Route Qty: 200 3RF Rx Instructions: use to test blood sugar QID Rytary 23.75-95 mg capsule, extended release 1 cap PO TID 30 Days Qty: 90 5RF Rx Instructions: divide evenly over waking hours atorvastatin 40 mg tablet 40 mg PO QPM Qty: 90 3RF cholecalciferol (vitamin D3) 50 mcg (2,000 unit) capsule 2,000 unit PO DAILY Qty: 90 3RF levothyroxine 125 mcg tablet 125 mcg PO DAILY Qty: 30 11RF magnesium oxide 400 mg magnesium tablet 400 mg PO DAILY Qty: 30 11RF metoprolol tartrate 25 mg tablet 12.5 mg PO BIDM Qty: 60 11RF polyethylene glycol 3350 [Miralax] 17 gram/dose powder 17 g PO DAILY Qty: 850 11RF Rx Instructions: [facility] quetiapine 25 mg tablet 12.5 mg PO HS PRN (Reason: Psychosis) Qty: 30 11RF Rx Instructions: 25 mg PO TAKE 1/2 TABLET AT BEDTIME FOR PSYCHOSIS; Xarelto 20 mg tablet 20 mg PO HS Qty: 30 11RF tamsulosin 0.4 mg capsule 0.4 mg PO HS Qty: 30 11RF Changed insulin aspart U-100 [Novolog FlexPen U-100 Insulin] 100 unit/mL (3 mL) insulin pen 1 unit subcut .qaqhs Qty: 30 3RF Rx Instructions: --Goal BSG Range: Low 120 mg/dL, High 160 mg/dL --Correction Factor: 50 mg/dL/unit --Carbohydrate ratio = 8 g/unit --BSGs ACHS if eating, q6h if npo insulin glargine [Lantus Solostar U-100 Insulin] 100 unit/mL (3 mL) insulin pen 15 unit subcut QAM 90 Days Qty: 19.8 3RF Patient Comments: Per Enrique, takes 19 units in AM daily Discontinued acetaminophen 500 mg tablet 500 mg PO Q12H Qty: 60 11RF Rx Instructions: CONFIRMED ON [facility] DC SUMMARY AND / [facility] 01/20/22 lidocaine 5 % adhesive patch,medicated 2 patch topical DAILY Qty: 30 11RF Rx Instructions: CONFIRMED ON [facility] DC SUMMARY AND / [facility] 01/20/22 potassium chloride 20 mEq tablet,ER particles/crystals 20 meq PO DAILY Qty: 90 3RF Discharge Orders: Discharge Order (Routine); Ordered 06/20/22 Ordered By: Leonel Castillo/Other Patient Handouts: High Blood Sugar (Hyperglycemia), Managing Type 2 Diabetes Admission Data Admit Date/Time: 06/12/22 13:21 Attending Provider: Leonel Moore Admit Provider: Stevo Ordaz Primary Care Provider: Jg Valdez Other Providers: Stevo Ordaz ; Monty Rodriges ; [facility] ; [facility] ; [place] Other Interventions: Discharge Summary Assessment (RN) Last Done: 06/20/22 14:28 Coding Level of Care Code 12077 INP/OBS DISCH >30 MIN Diagnoses Paroxysmal A-fib I48.0 Fall W19.XXXA Encounter type: initial encounter COVID-19 U07.1 Parkinsonism G20 Type 2 diabetes mellitus E11.9 BPH with urinary obstruction N40.1; N13.8 Chews tobacco Z72.0 Constipation K59.00
== END 2022-06-20 14:59 | DRG 308 ==
LOC: EDINP 09:50 → ED 09:50 → SUATTDRO 15:57 → 2W 18:53 → 1E 06-12 11:16 → SUATTDRO 06-12 13:21 → 2S 06-12 21:33

== ENCOUNTER 2022-07-12 13:45 | Inpatient (IN) ==
--- NOTE | 2022-07-12 14:06 | Emergency Department Note ---
Impression & Plan Contusion of buttock ED Provider Note INFORMANT: Patient ED PROVIDER(S): Angel Jc DO CHIEF COMPLAINT: Right buttock pain PLAN: Disposition: Home Outpatient prescription management: none Discussion with: I spoke with the hospitalist, who will see the patient for admission/observation and further evaluation and consultation. I spoke with Dr. Bailey from orthopedics as well. MEDICAL DECISION MAKING: This is a 67-year-old male who presents to the ED with a chief complaint of right buttock pain. The patient lives at a local nursing facility. He states that he got up to sit on a wheelchair when he missed the wheelchair and landed on his right butt cheek. He states that this occurred about 2 hours prior to arrival. He was able to get up but he had discomfort in the right buttock area and was sent here for evaluation. He denies any pain with axial loading of the legs. Range of motion of the hip does not seem to cause any significant discomfort. The has mild tenderness to palpation the right buttock area. No obvious bruising or hematoma palpable on my exam. No crepitus. The patient's exam is otherwise unremarkable. Denies loss of consciousness or striking his head. No midline tenderness to the spine. No complaints of other injuries. No shortening o rotation of ther leg. Patient states that he did not strike his head or have loss conscious. He states that he is not on blood thinners although based on his record here he may be on rivaroxaban. X-ray of the right hip and pelvis shows a subcapital impacted right femoral neck fracture. CBC did not show anemia or leukocytosis. Chemistry panel showed no electrolyte abnormality. The patient was told the results. I spoke with the hospitalist and the orthopedist about the patient. He will be admitted Triage Nursing notes reviewed. Vital Signs: reviewed Prior /Outside records reviewed: none Differential diagnosis: Differential includes fracture, contusion, dislocation, other. Diagnostics, as interpreted by me: 12 lead ECG: Sinus bradycardia rate of 58 first-degree AV block. Right bundle branch block. No ST elevation. No PVCs. Cardiac Monitoring ordered: none Medical decision rules: none Imaging studies: X-ray of the right hip and pelvis: Subcapital femoral neck fracture. Chest x-ray: No acute disease. Procedures: none. Critical care: none. HPI: See MDM above. PAST MEDICAL HISTORY: See Below PAST SURGICAL HISTORY: See Below SOCIAL HISTORY: See Below HOME MEDICATIONS: See Below ALLERGIES: See Below VITALS: See Below PHYSICAL EXAMINATION: See MDM for positive findings otherwise unremarkable. CONSTITUTIONAL/VITAL SIGNS: Reviewed GENERAL:done as appropriate INTEGUMENTARY: done as appropriate HEAD: done as appropriate EYES: done as appropriate RESPIRATORY: done as appropriate CARDIOVASCULAR:done as appropriate GI/ABDOMEN:done as appropriate EXTREMITIES: done as appropriate NEUROLOGICAL: done as appropriate PSYCHIATRIC:done as appropriate MUSCULOSKELETAL:done as appropriate TRIAGE NURSING DOCUMENTATION REVIEWED. Past Med/Surg History Medical History Acute blood loss anemia Acute encephalopathy Acute respiratory failure with hypoxemia Adult situational stress disorder Closed head injury Collapse Dilated aortic root Erectile dysfunction Leah's thyroiditis History of prostate cancer Hypoglycemia Mild cognitive impairment Paroxysmal SVT (supraventricular tachycardia) Pulmonary nodule Rash Renal cyst Renal lesion Septic prepatellar bursitis (07/2020) Sore throat Subcapital fracture of left hip Tubular adenoma of colon 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 Vitamin D deficiency Weakness Surgical History History of left knee surgery History of shoulder surgery Left History of total left hip arthroplasty 12-20-21 Left Total Hip Arthroplasty-Uncemented(Left) - Jeremy Baker DO Family History Mother Cancer Grandmother (Paternal) Stroke Grandfather (Paternal) Stroke Other Myocardial infarction Denies family history of Ovarian cancer Prostate cancer Breast cancer Colorectal cancer Social History Smoking Status: Current every day smoker Tobacco Type: Smokeless Tobacco (Dip or Chew) Age Started Using Tobacco: 16; Age Quit Using Tobacco: 26; Second Hand Exposure: No; Hx Alcohol Use: No Hx Substance Use: No Preferred Language: Arabic Communication Ability: Effective Chief Technology Officer Required: No Beliefs That Will Affect Care: None marital status: Single Current Living Situation: Personal Care Facility Current Living Situation Comment: [facility] current occupational status: retired current occupation: [employer] How many Children do You have: 0 Feels Safe at Home: Yes Childhood Exposure to Second-Hand Smoke: Yes caffeine: Yes (iced tea ) Dental Care, Regularly: No Physical Activity Frequency: Does not Exercise Seatbelt Use: always Sunscreen Use: No Assistive Devices: Walker Allergies Allergies Allergy/AdvReac Type Severity Reaction Status Date / Time No Known Allergies Allergy Verified 07/04/22 11:06 Home Meds Previous Rx's Medication Instructions Recorded Wheeled Walker #1 ea 03/21/21 atorvastatin 40 mg tablet 40 mg PO QPM #90 tabs 01/23/22 cholecalciferol (vitamin D3) 50 2,000 unit PO DAILY #90 caps 01/23/22 mcg (2,000 unit) capsule levothyroxine 125 mcg tablet 125 mcg PO DAILY #30 tabs 01/23/22 magnesium oxide 400 mg PO DAILY #30 tabs 01/23/22 polyethylene glycol 3350 17 17 g PO DAILY #850 grams 01/23/22 gram/dose oral powder (Miralax) quetiapine 25 mg tablet 12.5 mg PO HS PRN Psychosis #30 01/23/22 tabs rivaroxaban 20 mg tablet (Xarelto) 20 mg PO HS #30 tabs 01/23/22 metformin 500 mg tablet,extended 500 mg PO BID #180 tabs 02/17/22 release 24 hr pen needle, diabetic, safety 30 #120 ea 05/12/22 gauge x 1/3" (Novofine Autocover) Wheelchair (Manual) #1 ea 05/19/22 lancets 21 gauge (ReadyLance #200 ea 06/06/22 Safety Lancets) acetaminophen 500 mg tablet 1,000 mg PO TID #90 tabs 06/20/22 (Tylenol Extra Strength) amiodarone 200 mg tablet 200 mg PO BIDM #60 tabs 06/20/22 nicotine 7 mg/24 hr daily 14 mg transdermal QAM #14 ea 06/20/22 transdermal patch carbidopa ER 23.75 mg-levodopa 95 1 cap PO TID #180 caps 07/03/22 mg capsule,extended release insulin aspart U-100 100 unit/mL 4 unit (0.04 mL) subcut TID #30 mL 07/03/22 (3 mL) subcutaneous pen (Novolog FlexPen U-100 Insulin aspart) insulin glargine 100 unit/mL (3 17 unit (0.17 mL) subcut QAM 90 07/03/22 mL) subcutaneous pen (Lantus days #15.3 mL Solostar U-100 Insulin) tramadol 50 mg tablet 50 mg PO TID pain #90 tabs 07/04/22 blood sugar diagnostic (OneTouch #200 ea 07/07/22 Ultra Test strips) Results & Data (ED) Vital Signs Vital Signs - 24 hr 07/12/22 13:51 07/12/22 15:44 07/12/22 15:44 Temperature 36.5 C Temperature Source Oral Pulse Rate 66 57 L Pulse Rate from SpO2 Sensor 57 L Respiratory Rate 18 16 Respiratory Effort / Characteristics Non-Labored Spontaneous Respiratory Depth Normal Respiratory Pattern Regular Blood Pressure 141/91 H 150/106 H Blood Pressure Mean 107 120 Blood Pressure Position Sitting Pulse Oximetry 96 95 Oxygen Delivery Method Room Air Sepsis Recent Fever Within 48 Hours No Sepsis New/Unexplained Change in Mental Status N/A Sepsis Action Taken by Nursing No Action Required 07/12/22 15:52 07/12/22 16:00 07/12/22 16:00 Temperature Temperature Source Pulse Rate 57 L 58 L Pulse Rate from SpO2 Sensor 58 L Respiratory Rate 18 Respiratory Effort / Characteristics Respiratory Depth Respiratory Pattern Blood Pressure 159/90 H Blood Pressure Mean 113 Blood Pressure Position Pulse Oximetry 96 Oxygen Delivery Method Room Air Sepsis Recent Fever Within 48 Hours Sepsis New/Unexplained Change in Mental Status Sepsis Action Taken by Nursing Laboratory Data 07/12/22 15:42 07/12/22 15:42 Lab Results 07/12/22 07/12/22 07/12/22 Range/Units 15:42 15:42 Unknown WBC 6.47 (4.8-10.8) K/ul RBC 4.40 L (4.70-6.10) M/uL Hgb 13.6 L (14.0-18.0) g/dl Hct 39.2 L (42.0-52.0) % MCV 89.1 (80.0-100.0) fL MCH 30.9 (25.0-34.0) pg MCHC 34.7 (32.0-36.0) g/dL RDW Std Deviation 45.5 (36.4-46.3) fL RDW Coeff of Robyn 14.0 (11.5-14.5) % Plt Count 169 (130-400) K/uL MPV 9.5 (9.4-12.4) fL Immature Gran % (Auto) 0.5 % Neut % (Auto) 79.2 % Lymph % (Auto) 13.0 % [place] % (Auto) 5.6 % Eos % (Auto) 1.4 % Baso % (Auto) 0.3 % Neut # (Auto) 5.13 (1.40-6.50) K/uL Lymph # (Auto) 0.84 L (1.2-3.4) K/uL [place] # (Auto) 0.36 (0.11-0.59) K/uL Eos # (Auto) 0.09 (0-0.50) K/uL Baso # (Auto) 0.02 (0-0.2) K/uL Immature Gran # (Auto) 0.03 (0.01-0.20) K/uL Sodium 140 (136-145) mmol/L Potassium 3.4 L (3.5-5.1) mmol/L Chloride 101 (98-107) mmol/L Carbon Dioxide 32 (21-32) mmol/L Anion Gap 7 (3-11) BUN 14 (6-23) mg/dl Creatinine 0.84 (0.6-1.4) mg/dl Est Cr Clr Drug Dosing 90.9 ml/min Est GFR ( Amer) 105.0 ml/min Est GFR (Non-Af Amer) 90.6 ml/min BUN/Creatinine Ratio 16.7 (10-20) Glucose 130 H (70-99(Fasting)) mg/dl Calcium 9.2 (8.6-10.3) mg/dl Total Bilirubin 0.7 (0.2-1.0) mg/dl AST 17 (13-39) U/L ALT 18 (7-52) U/L Alkaline Phosphatase 88 (34-104) U/L Total Protein 6.5 (6.0-8.3) gm/dl Albumin 3.9 (3.4-5.0) gm/dl Globulin 2.6 (2.5-4.0) gm/dl Albumin/Globulin Ratio 1.5 (0.9-2) SARS-CoV-2, RNA, NAAT NEGATIVE (NEGATIVE) Imaging Data Radiologist's Impression: Hip/Pelvis X-Ray 07/12/22 14:03 XR hip RT 2V w pelvis CLINICAL HISTORY: fall, pain rt buttock COMPARISON: Pelvis radiograph June 13, 2022. FINDINGS: Visualized portions of the left hip arthroplasty are unremarkable. There are brachytherapy seeds within the prostate. Note is made of an acute impacted nondisplaced subcapital right femoral neck fracture. No additional acute fractures are present. IMPRESSION: Acute impacted nondisplaced subcapital right femoral neck fracture. ACT 112: Negative or not required by law. Electronically signed by: Luke Hector M.D. 07/12/2022 2:44 PM Chest X-Ray 07/12/22 15:19 XR chest 1V portable CLINICAL HISTORY: hip fx COMPARISON STUDY: Chest radiograph and chest CT June 11, 2022. FINDINGS: No pneumothorax or effusion is present. There is no consolidation. No evidence for pulmonary edema. Cardiomegaly is unchanged. There has been no significant change in appearance of the chest. IMPRESSION: No acute cardiopulmonary findings. Stable cardiomegaly. ACT 112: Negative or not required by law. Electronically signed by: Luke Hector M.D. 07/12/2022 4:23 PM Discharge Plan Visit Data Chief Complaint: Hip Pain ED Provider: Angel Jc Discharge Problem: Contusion of buttock Patient Disposition: Being Evaluated by Hospitalist Forms Stand Alone Forms: [facility] [employer] Prescriptions Prescriptions: No Action (DME) Wheeled Walker Misc See Rx Instructions .Route Qty: 1 0RF Rx Instructions: As directed. with seat if possible metformin 500 mg tablet extended release 24 hr 500 mg PO BID Qty: 180 3RF (DME) Novofine Autocover 30 gauge x 1/3" needle See Rx Instructions .Route Qty: 120 11RF Rx Instructions: use for insuling injections QID (DME) Wheelchair (Manual) Device See Rx Instructions .Route Qty: 1 0RF Rx Instructions: Standard wheelchair with leg rests. Udfe-nu-Dail exam on 04/14/22. Estimated length of need: Lifetime. (DME) lancets [ReadyLance Safety Lancets] 21 gauge misc See Rx Instructions .Route Qty: 200 3RF Rx Instructions: use to test blood sugar QID insulin aspart U-100 [Novolog FlexPen U-100 Insulin] 100 unit/mL (3 mL) insulin pen 4 unit subcut TID Qty: 30 3RF Rx Instructions: CONFIRMED ON DC SUMMARY AND W/ [facility] 07/03 insulin glargine [Lantus Solostar U-100 Insulin] 100 unit/mL (3 mL) insulin pen 17 unit subcut QAM 90 Days Qty: 15.3 3RF Patient Comments: Per [facility], takes 19 units in AM daily Rx Instructions: CONFIRMED ON DC SUMMARY AND WITH ENRIQUE JOINER 07/03 carbidopa-levodopa 23.75-95 mg capsule, extended release 1 cap PO TID Qty: 180 3RF Rx Instructions: CONFIRMED ON DC SUMMARY AND WITH ENRIQUE JOINER (DME) OneTouch Ultra Test Strip See Rx Instructions .Route Qty: 200 11RF Rx Instructions: Test blood sugars 4 time a day tramadol 50 mg tablet 50 mg PO TID Qty: 90 1RF atorvastatin 40 mg tablet 40 mg PO QPM Qty: 90 3RF cholecalciferol (vitamin D3) 50 mcg (2,000 unit) capsule 2,000 unit PO DAILY Qty: 90 3RF levothyroxine 125 mcg tablet 125 mcg PO DAILY Qty: 30 11RF magnesium oxide 400 mg magnesium tablet 400 mg PO DAILY Qty: 30 11RF polyethylene glycol 3350 [Miralax] 17 gram/dose powder 17 g PO DAILY Qty: 850 11RF Rx Instructions: CONFIRMED ON [facility] DC SUMMARY AND W/ [facility] JOIN[facility] 01/20/22 quetiapine 25 mg tablet 12.5 mg PO HS PRN (Reason: Psychosis) Qty: 30 11RF Rx Instructions: 25 mg PO TAKE 1/2 TABLET AT BEDTIME FOR PSYCHOSIS; Xarelto 20 mg tablet 20 mg PO HS Qty: 30 11RF nicotine 7 mg/24 hr Patch 24 Hour 14 mg transdermal QAM Qty: 14 0RF amiodarone 200 mg Tablet 200 mg PO BIDM Qty: 60 0RF acetaminophen [Tylenol Extra Strength] 500 mg Tablet 1,000 mg PO TID Qty: 90 0RF Referrals Referrals: Jg Valdez DO [Primary Care Provider] -
--- NOTE | 2022-07-12 14:45 | XRay Report ---
XR hip RT 2V w pelvis CLINICAL HISTORY: fall, pain rt buttock COMPARISON: Pelvis radiograph June 13, 2022. FINDINGS: Visualized portions of the left hip arthroplasty are unremarkable. There are brachytherapy seeds within the prostate. Note is made of an acute impacted nondisplaced subcapital right femoral n ender fracture. No additional acute fractures are present. IMPRESSION: Acute impacted nondisplaced subcapital right femoral neck fracture. ACT 112: Negative or not required by law. Electronically signed by: Luke Hector M.D. 07/12/2022 2:44 PM
[2022-07-12] MEDS ORDERED: MoRPHine SULFATE 2 MG/ML CARP IV PRN (15:18)
--- NOTE | 2022-07-12 15:43 | History & Physical Report ---
Date of Service July 12, 2022 Assessment & Plan (1) Closed right hip fracture: Plan: Fall, R Hip Fracture - Pt reports fell while transferring to wheelchair, missed the chair. No presyncope/syncope/dizziness that contributed - EKG on admit sinus estefania 1st degree block, RBBB. No SVT/Afib - Rivaroxaban last taken 07/11/22, currently held -Patient on rivaroxaban for paroxysmal A-fib. We will continue on heparin GTT periprocedurally, hold 6 hours prior to surgery. Cook placed hemoglobin 13.6, up from last 12.8 SVT, hx pAfib - Continue amiodarone 200mg BIDM -Sinus rhythm on admission. Continue on telemetry given past history of recurrent A-fib and SVT Patient has been referred for outpatient consideration of ablation, his next follow-up is in 4 months and this was deferred at last visit per patient Last documented A-fib was 06/14 Parkinsonian Tremor -Patient does not think he has Parkinson's, but notes he has had a tremor which is improved on Sinemet. 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 Dose reduced glargine to 5 units twice daily if/while n.p.o. Goal BSG [id number] Clears until midnight, n.p.o. after midnight Hypothyroidism - Continue synthroid 125mcg daily DVT prophylaxis: On prophylactic anticoagulation for paroxysmal A-fib CODE STATUS: Full code Diet: N.p.o. at midnight Disposition: Medical telemetry for monitoring of recurrent SVT/A-fib (2) Type 2 diabetes mellitus: (3) Paroxysmal SVT (supraventricular tachycardia): (4) Paroxysmal A-fib: (5) Hypothyroidism: (6) BPH with urinary obstruction: History of Present Illness Primary Care Provider: DO Lars Caldera is a 67-year-old male with a past medical history of A-fib with RVR, SVT, falls, parkinsonism, type II DM, BPH with LUTS, degenerative joint disease, and hypertension who was recently discharged 06/20/2022 following admission for pSVT pending ablation as an outpatient with falls. Following discharge he was seen by cardiology, was continued on amiodarone pending dose reduction from twice daily to daily. Was in sinus rhythm at that follow-up appointment 06/27, was pending follow-up electrophysiology for additional evaluation/ablation. While at his nursing facility he got up to sit on the wheelchair when he sat backwards he missed the chair and landed on his right buttock with immediate pain and discomfort and attempted to weight-bear on the right extremity. He did not have any lightheadedness, dizziness, syncope, presyncope that contributed to his fall. X-ray of the right hip and pelvis shows an impacted right femoral neck fracture. Orthopedic surgery has been consulted for operative intervention of a right hip fracture, patient has been recommended for medical admission due to comorbidities. Foster reports he was getting out of bed and going to transfer to a wheelchair and missed, fell and struck his buttock. No lightheadedness, dizziness, syncope, presyncope. Saw cardiology recently, is not planning on an ablation at this time. He does not know his medications by heart, is not sure if he is on a blood thinner or not only that he takes what medications are given to him at [place]. Last took medications last night. He reports that he has not had any chest pain, chest pressure, lightheadedness, dizziness, or palpitations recently. He is not nauseous or vomiting. He reports his right hip hurt when he tried to put weight on it earlier today, but he is in no pain laying in bed and is comfortable. He is surprised that he broke his right hip after breaking his left one a few years ago. He does not think he has had osteoporosis screening or been on bone strengthening medications in the past. He has no additional questions or concerns at bedside, is anticipating orthopedic evaluation and would like operative repair of his hip if available. He notes that he did do well with his prior left hip surgery in [place]. Medical History: Reviewed Medications: Reviewed Surgical History: Reviewed Family history: Reviewed Allergies: Reviewed Social History: Snuff, 1 pouch lasts week or so. NOne in last 4 days. Rare social EtoH use. Code Status: Full Code. Friend Guerline is caregiver and decisionmaker if he were incapacitated. MEd REc per [facility]: -Med staff contacted at [place]. They were unable to give full medication list over the phone; will fax to ER number for reconciliation but are able to confirm that he is on rivaroxaban which was last taken evening of 07/11 Allergies Allergy/AdvReac Type Severity Reaction Status Date / Time No Known Allergies Allergy Verified 07/04/22 11:06 Home Medications Medication Instructions Recorded Confirmed Type Wheeled Walker #1 ea 03/21/21 07/04/22 Rx atorvastatin 40 mg tablet 40 mg PO QPM #90 tabs 01/23/22 07/04/22 Rx cholecalciferol (vitamin D3) 50 2,000 unit PO DAILY #90 caps 01/23/22 07/04/22 Rx mcg (2,000 unit) capsule levothyroxine 125 mcg tablet 125 mcg PO DAILY #30 tabs 01/23/22 07/04/22 Rx magnesium oxide 400 mg PO DAILY #30 tabs 01/23/22 07/04/22 Rx polyethylene glycol 3350 17 17 g PO DAILY #850 grams 01/23/22 07/04/22 Rx gram/dose oral powder (Miralax) quetiapine 25 mg tablet 12.5 mg PO HS PRN Psychosis #30 01/23/22 07/04/22 Rx tabs rivaroxaban 20 mg tablet (Xarelto) 20 mg PO HS #30 tabs 01/23/22 07/04/22 Rx metformin 500 mg tablet,extended 500 mg PO BID #180 tabs 02/17/22 07/04/22 Rx release 24 hr pen needle, diabetic, safety 30 #120 ea 05/12/22 07/04/22 Rx gauge x 1/3" (Novofine Autocover) Wheelchair (Manual) #1 ea 05/19/22 07/04/22 Rx lancets 21 gauge (ReadyLance #200 ea 06/06/22 07/04/22 Rx Safety Lancets) acetaminophen 500 mg tablet 1,000 mg PO TID #90 tabs 06/20/22 07/04/22 Rx (Tylenol Extra Strength) amiodarone 200 mg tablet 200 mg PO BIDM #60 tabs 06/20/22 07/04/22 Rx nicotine 7 mg/24 hr daily 14 mg transdermal QAM #14 ea 06/20/22 07/04/22 Rx transdermal patch carbidopa ER 23.75 mg-levodopa 95 1 cap PO TID #180 caps 07/03/22 07/04/22 Rx mg capsule,extended release insulin aspart U-100 100 unit/mL 4 unit (0.04 mL) subcut TID #30 mL 07/03/22 07/04/22 Rx (3 mL) subcutaneous pen (Novolog FlexPen U-100 Insulin aspart) insulin glargine 100 unit/mL (3 17 unit (0.17 mL) subcut QAM 90 07/03/22 07/04/22 Rx mL) subcutaneous pen (Lantus days #15.3 mL Solostar U-100 Insulin) tramadol 50 mg tablet 50 mg PO TID pain #90 tabs 07/04/22 07/04/22 Rx blood sugar diagnostic (OneTouch #200 ea 07/07/22 Rx Ultra Test strips) Past Med/Surg History Medical History Acute blood loss anemia Acute encephalopathy Acute respiratory failure with hypoxemia Adult situational stress disorder Closed head injury Collapse Dilated aortic root Erectile dysfunction Leah's thyroiditis History of prostate cancer Hypoglycemia Mild cognitive impairment Paroxysmal SVT (supraventricular tachycardia) Pulmonary nodule Rash Renal cyst Renal lesion Septic prepatellar bursitis (07/2020) Sore throat Subcapital fracture of left hip Tubular adenoma of colon 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 Vitamin D deficiency Weakness Surgical History History of left knee surgery History of shoulder surgery Left History of total left hip arthroplasty 12-20-21 Left Total Hip Arthroplasty-Uncemented(Left) - Jeremy Baker DO Family History Mother Cancer Grandmother (Paternal) Stroke Grandfather (Paternal) Stroke Other Myocardial infarction Denies family history of Ovarian cancer Prostate cancer Breast cancer Colorectal cancer Social History Smoking Status: Current every day smoker Tobacco Type: Smokeless Tobacco (Dip or Chew) Age Started Using Tobacco: 16; Age Quit Using Tobacco: 26; Second Hand Exposure: No; Hx Alcohol Use: No Hx Substance Use: No Preferred Language: Slovak Communication Ability: Effective 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: No Beliefs That Will Affect Care: None marital status: Single Current Living Situation: Personal Care Facility Current Living Situation Comment: [facility] 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 Not oriented to month. Cooperative. HEENT: Atraumatic, normocephalic. Vision/hearing intact Pulm: CTAB A&P. -wheezes, -rales, -rhonchi. Symmetrical chest rise. No increased work of breathing. No respiratory distress. Cardiac: RRR, -mrg. Radial pulses intact and symmetrical. Abdominal: Nontender, nondistended, soft. BS present. Extremities: Right anterior hip tender to palpation. No pain while laying in bed. Ankle dorsiflexion/plantarflexion 5/5 bilaterally, sensation to soft touch intact in feet bilaterally. PT pulse intact bilaterally. Moves upper extremities equally. Is with mild cogwheeling of both upper extremities on passive range of motion testing. Results & Data Results & Data Vital Signs (Past 12 Hours) Vital Signs Temp Pulse Resp BP Pulse Ox O2 Del Method 07/12/22 13:51 36.5 C 66 18 141/91 H 96 Room Air PG Care Time/CCT Total # of Minutes Spent Total Time Spent with Patient: Total time spent is greater than 50% in coordination of care (as documented) at patient's floor/unit and/or counseling patient: Coding Level of Care Code 52677 INT INP/OBS CARE 2/55MIN Diagnoses Closed right hip fracture S72.001A Type 2 diabetes mellitus E11.9 Paroxysmal SVT (supraventricular tachycardia) I47.1 Paroxysmal A-fib I48.0 Hypothyroidism E03.9 BPH with urinary obstruction N40.1; N13.8
[2022-07-12 16:24] LABS: Albumin Globulin Ratio 1.5 (0.9-2); Albumin Level 3.9 gm/dl (3.4-5.0); BUN Creatinine Ratio 16.7 (10-20); Bilirubin,Total 0.7 mg/dl (0.2-1.0); Calcium 9.2 mg/dl (8.6-10.3); Creatinine Clr Calc Pharmacy 90.9 ml/min; Est GFR (Non-African American) 90.6 ml/min; Globulin 2.6 gm/dl (2.5-4.0); Potassium 3.4 mmol/L (3.5-5.1); Total Protein 6.5 gm/dl (6.0-8.3)
--- NOTE | 2022-07-12 16:24 | XRay Report ---
XR chest 1V portable CLINICAL HISTORY: hip fx COMPARISON STUDY: Chest radiograph and chest CT June 11, 2022. FINDINGS: No pneumothorax or effusion is present. There is no consolidation. No evidence for pulmonar y edema. Cardiomegaly is unchanged. There has been no significant change in appearance of the chest. IMPRESSION: No acute cardiopulmonary findings. Stable cardiomegaly. ACT 112: Negative or not required by law. Electronically signed by: Luke Hector M.D. 07/12/2022 4:23 PM
[2022-07-12 16:35] LABS: Basophils # (auto) 0.02 K/uL (0-0.2); Basophils % (auto) 0.3 %; Eosinophils # (auto) 0.09 K/uL (0-0.50); Eosinophils % (auto) 1.4 %; Hematocrit (blood only) 39.2 % (42.0-52.0); Hemoglobin 13.6 g/dl (14.0-18.0); Immature Granulocytes # (auto) 0.03 K/uL (0.01-0.20); Immature Granulocytes % (auto) 0.5 %; Lymphocytes # (auto) 0.84 K/uL (1.2-3.4); Mean Corpuscular Hemoglobin 30.9 pg (25.0-34.0); Mean Corpuscular Hgb Conc 34.7 g/dL (32.0-36.0); Mean Corpuscular Volume 89.1 fL (80.0-100.0); Mean Platelet Volume 9.5 fL (9.4-12.4); Monocytes # (auto) 0.36 K/uL (0.11-0.59); Monocytes % (auto) 5.6 %; Neutrophils # (auto) 5.13 K/uL (1.40-6.50); Neutrophils % (auto) 79.2 %; Platelet Count 169 K/uL (130-400); RDW Standard Deviation 45.5 fL (36.4-46.3); White Blood Count 6.47 K/ul (4.8-10.8)
[2022-07-12 16:43] LABS: INR 1.1 (0.9-1.1); Partial Thromboplastin Ratio 0.9; Partial Thromboplastin Time 26.5 Seconds (21.0-31.0); Prothrombin Time 12.1 Seconds (9.0-12.0)
--- NOTE | 2022-07-12 16:58 | Electrocardiogram Report ---
Test Reason : Blood Pressure : / mmHG Vent. Rate : 058 BPM Atrial Rate : 058 BPM P-R Int : 214 ms QRS Dur : 152 ms QT Int : 514 ms P-R-T Axes : 036 -32 -27 degrees QTc Int : 504 ms Sinus bradycardia with 1st degree A-V block Left axis deviation Right bundle branch block T wave abnormality, consider lateral ischemia Abnormal ECG When compared with ECG of 13-JUN-2022 00:11, WA interval has increased Vent. rate has decreased BY 104 BPM Questionable change in QRS duration Confirmed by Reza Victor ([id number]) on 07/12/2022 4:58:00 PM Referred By: REFERRED SELF Confirmed By:Reza Victor
[2022-07-12 17:22] LABS: Appearance Urine Turbid (Clear); Bacteria Urine Automated 4+ (Negative); Bilirubin Urine Negative (Negative); Blood Urine Negative (Negative); Cast Urine Automated 0 /lpf (0-5); Color Urine Yellow; Epithelial Cell Urine Auto 0-5 /lpf (0-5); Glucose Urine UA Negative (Negative); Ketones Urine Trace (Negative); Leukocyte Esterase Urine 2+ (Negative); Nitrite Urine Negative (Negative); RBC Urine Automated 0-4 /hpf (0-4); Specific Gravity Urine 1.021 (1.000-1.030); Urobilinogen Urine Positive (Negative); WBC Urine Automated >30 /hpf (0-5); pH Urine 7.5 (4.5-7.5)
[2022-07-12 17:24] LABS: Protein Urine 1+ (Negative)
[2022-07-12 17:38] LABS: Calcium Oxalate Crystals Urine Present (None Prsent)
[2022-07-12] MEDS ORDERED: HYDROmorphone INJ 0.5 MG/0.5 ML SYR IV PRN (20:15)
[2022-07-12] MEDS ORDERED: HYDROmorphone INJ 1 MG/ML SYRINGE IV PRN (20:15)
[2022-07-12] MEDS ORDERED: QUEtiapine FUMARATE 25 MG TABLET PO PRN (20:15)
[2022-07-12] MEDS ORDERED: DEXTROSE 50% 50 ML SYRINGE IV PRN (20:15)
[2022-07-12] MEDS ORDERED: GLUCOSE 10 TAB/TUBE PO PRN (20:15)
[2022-07-12] MEDS ORDERED: HEPARIN SODIUM/DEXTROSE 25,000 UNITS/500 ML BAG IV SCH (20:15)
[2022-07-12] MEDS ORDERED: CARBOHYDRATES FOR HYPOGLYCEMIA PO PRN (20:15)
[2022-07-12] MEDS ORDERED: GLUCAGON FOR INJ 1 MG VIAL SQ PRN (20:15)
[2022-07-12] MEDS ORDERED: NALOXONE HCL 0.4 MG/1 ML VIAL/CARP IV PRN (20:15)
[2022-07-12] MEDS ORDERED: GLUCOSE 40% GEL 15 GM TUBE PO PRN (20:15)
[2022-07-12] MEDS ORDERED: Heparin IV Adult Wt-Based Low-Dose *NO* Bolus Protocol IV SCH (20:30)
[2022-07-12] MEDS: INSULIN ASPART PER UNIT CHARGE SC SCH (20:41)
[2022-07-12] MEDS: ATORVASTATIN 40 MG TAB PO SCH (22:03)
[2022-07-12] MEDS: ACETAMINOPHEN 325 MG TAB PO PRN (22:04)
[2022-07-12] MEDS: LANTUS PER UNIT CHARGE SQ SCH (22:16)
[2022-07-13 04:46] LABS: Basophils # (auto) 0.06 K/uL (0-0.2); Basophils % (auto) 0.8 %; Eosinophils # (auto) 0.26 K/uL (0-0.50); Eosinophils % (auto) 3.5 %; Hematocrit (blood only) 36.3 % (42.0-52.0); Hemoglobin 12.8 g/dl (14.0-18.0); Immature Granulocytes # (auto) 0.03 K/uL (0.01-0.20); Immature Granulocytes % (auto) 0.4 %; Mean Corpuscular Hemoglobin 31.4 pg (25.0-34.0); Mean Corpuscular Hgb Conc 35.3 g/dL (32.0-36.0); Mean Corpuscular Volume 89.2 fL (80.0-100.0); Mean Platelet Volume 9.1 fL (9.4-12.4); Monocytes # (auto) 0.48 K/uL (0.11-0.59); Monocytes % (auto) 6.4 %; Neutrophils # (auto) 5.18 K/uL (1.40-6.50); Neutrophils % (auto) 68.9 %; Platelet Count 147 K/uL (130-400); RDW Coefficient of Variation 13.9 % (11.5-14.5); RDW Standard Deviation 44.7 fL (36.4-46.3); Red Blood Count 4.07 M/uL (4.70-6.10); White Blood Count 7.51 K/ul (4.8-10.8)
[2022-07-13 04:55] LABS: BUN Creatinine Ratio 12.8 (10-20); Calcium 8.7 mg/dl (8.6-10.3); Creatinine Clr Calc Pharmacy 88.8 ml/min; Est GFR (Non-African American) 89.7 ml/min; Magnesium 1.4 mg/dl (1.7-2.4); Potassium 3.2 mmol/L (3.5-5.1)
[2022-07-13 05:10] LABS: Partial Thromboplastin Ratio 1.3; Partial Thromboplastin Time 37.9 Seconds (21.0-31.0)
[2022-07-13] MEDS: LEVOTHYROXINE SODIUM 125 MCG TABLET PO SCH (06:28)
[2022-07-13] MEDS: INSULIN ASPART PER UNIT CHARGE SC SCH ×4 (07:51→22:06)
[2022-07-13] MEDS ORDERED: AMIODARONE 200 MG TAB PO SCH (08:00)
[2022-07-13] MEDS: NICOTINE 14 MG/24 HR PATCH TD SCH (08:19)
[2022-07-13] MEDS: LANTUS PER UNIT CHARGE SQ SCH ×2 (08:20→22:07)
[2022-07-13] MEDS ORDERED: POTASSIUM CHLORIDE CRTAB 20 MEQ TABCR PO STA (09:14)
[2022-07-13] MEDS: cefTRIAXone SODIUM 2,000 MG in DEXTROSE 5% 50 ML IV SCH (10:43)
[2022-07-13] MEDS: MAGNESIUM SULFATE / D5W 1 GM/100 ML BAG IV SCH ×3 (10:46→14:51)
[2022-07-13] MEDS: ACETAMINOPHEN 325 MG TAB PO PRN (13:38)
--- NOTE | 2022-07-13 14:11 | Hospitalist Progress Note ---
Date of Service July 13, 2022 Assessment & Plan (1) Closed right hip fracture: Plan: Fall, R Hip Fracture - Pt reports fell while transferring to wheelchair, missed the chair. No presyncope/syncope/dizziness that contributed - EKG on admit sinus estefania 1st degree block, RBBB. No SVT/Afib - Rivaroxaban last taken 07/11/22, currently held and there is no need for bridging anticoagulation Will in a sinus rhythm-discontinue heparin drip -Cook catheter placed -Appreciate orthopedics consultation-plan for surgical repair on 07/14 after off Xarelto over 48 hours -Follow CBC, BMP in the morning -Place anesthesiology consultation for preoperative evaluation -Pain control with Tylenol, tramadol, Dilaudid as needed (2) UTI (urinary tract infection): Plan: UTI present on admission Photo Engraver/POA reports that he had been having unexpected urinary frequency and urgency with incontinence a few days before his fall/admission Start ceftriaxone Follow urine culture Cook catheter in place (3) Electrolyte abnormality: Plan: With hypomagnesemia and hypokalemia Replace with oral potassium chloride and IV magnesium Follow BMP and magnesium in the morning (4) Type 2 diabetes mellitus: Plan: [id number] insulin at home Continue Lantus and NovoLog, adjust as needed Blood glucose here is well controlled Hemoglobin A1c 6.5% in 05/2022 (5) Paroxysmal SVT (supraventricular tachycardia): Plan: SVT, hx pAfib-with recent admission for such -His amiodarone dose was to be reduced down to 200 mg once daily as of 07/12- reduced dose now -Sinus rhythm on admission. Continue on telemetry given past history of recurrent A-fib and SVT Patient has been referred for outpatient consideration of ablation, his next follow-up is in 4 months and this was deferred at last visit per patient Last documented A-fib was 06/14 -Monitor on telemetry -Holding Xarelto for hip surgery -It appears his previous metoprolol was discontinued recently as well (6) Paroxysmal A-fib: Plan: As noted above (7) Hypothyroidism: Plan: TSH 1.9 in 05/2022 - Continue synthroid 125mcg daily (8) BPH with urinary obstruction: Plan: Cook catheter placed while in mobile with hip fracture Trial of void postoperatively (9) Cognitive impairment: Plan: Mild, supportive care (10) Parkinsonism: Plan: With tremor improved on Sinemet Continue home Sinemet which needs to be brought in from home as it is extended release Plan DVT prophylaxis-add SCDs Disposition-continued stay, awaiting surgery and then will need rehab placement. Discussed care with his POA Selin at the bedside Admission and Anticipated Discharge Date Admission Date: July 12, 2022 Subjective Patient denies pain in the hip, lying flat in bed. No chest pains or shortness of breath I discussed his care with orthopedics Discussed his care with his POA/friend at the bedside-Guerline Telemetry with normal sinus rhythm and sinus bradycardia, IVCD, rates in the 60s Physical Exam Constitutional: WD/WN, vitals as above Respiratory: normal respiratory effort, lungs clear to auscultation Cardiovascular: RRR, no murmur, no edema Gastrointestinal (Abdomen): normal bowel sounds, soft, nontender, no hepatosplenomegaly Musculoskeletal: Extremities: + extremities abnormal to inspection (RLE shortened and internally rotated) Neurologic: Motor/Sensory: no tremor Results & Data Results & Data Vital Signs (Past 12 Hours) Vital Signs Temp Pulse Pulse Resp BP Pulse Ox O2 Del Method 07/13/22 12:02 37.2 C 53 L 16 147/82 H 96 Room Air 07/13/22 08:00 51 L 07/13/22 08:08 36.6 C 52 L 16 154/86 H 94 Room Air 07/13/22 04:32 36.8 C 54 L 18 162/82 H 97 Room Air Laboratory Results CBC, BMP, magnesium level reviewed Urinalysis reviewed, urine culture reviewed PG Care Time/CCT Total # of Minutes Spent Total Time Spent with Patient: Total time spent is greater than 50% in coordination of care (as documented) at patient's floor/unit and/or counseling patient: Coding Level of Care Code 02902 SUB INP/OBS CARE 3/50MIN Diagnoses Closed right hip fracture S72.001A UTI (urinary tract infection) N39.0 Electrolyte abnormality E87.8 Type 2 diabetes mellitus E11.9 Paroxysmal SVT (supraventricular tachycardia) I47.1 Paroxysmal A-fib I48.0 Hypothyroidism E03.9 BPH with urinary obstruction N40.1; N13.8 Cognitive impairment R41.89 Parkinsonism G20
[2022-07-13] MEDS: SENNA 8.6 MG TAB PO SCH (17:20)
[2022-07-13] MEDS: AMIODARONE 200 MG TAB PO SCH (17:21)
[2022-07-13] MEDS: POLYETHYLENE (MIRALAX) 17 GM PACK PO SCH (17:21)
[2022-07-13] MEDS ORDERED: CARBIDOPA LEVODOPA PO SCH (22:00)
[2022-07-13] MEDS: ATORVASTATIN 40 MG TAB PO SCH (22:09)
[2022-07-13] MEDS: traMADol HCL 50 MG TABLET PO SCH (22:09)
--- NOTE | 2022-07-14 04:31 | Consultation Report ---
DATE OF CONSULTATION: 07/13/2022. HISTORY OF PRESENT ILLNESS: This is a 67-year-old gentleman seen at the request of Dr. Jed Talbert. The patient reportedly fell while transferring to a wheelchair. He missed the chair and had a mechanical fall onto his right hi p. The patient was having pain, had inability to ambulate or stand. He was then transferred to [facility] for evaluation. Medical provider then evaluated the patient, had radiograph s, noted impacted right subcapital hip fracture. The patient was then admitted to the hospitalist se [facility]. Orthopedics was consulted. He had no other loss of consciousness, dizziness or syncope prior to the episode. He has no head or neck trauma. No other complaints or injuries. PAST MEDICAL HISTORY: AFib with RVR, SVT, frequent falls, parkinsonism, type 2 diabetes mellitus, BPH with LUTS, degenerati ve joint disease, osteoarthritis, hypertension, acute blood loss anemia, acute encephalopathy, acute respiratory failure with hypoxemia, adult situational stress disorder, closed head injury, dilated ao rtic root, erectile dysfunction, Leah's thyroiditis, history of prostate cancer, hypoglycemia, m ild cognitive impairment, pulmonary nodule, rash, renal cyst, renal lesion, septic prepatellar bursit is in 2020, sore throat, tubular adenoma of the colon, vitamin D deficiency, and weakness PAST SURGICAL HISTORY: Left hip replacement status post fall performed in [place], left knee surgery, left shoulder surgery. ALLERGIES: No known drug allergies. MEDICATIONS: Reviewed in the medical record. Of note, the patient was on rivaroxaban (Xarelto) and that has been held at the time of admission. SOCIAL HISTORY: The patient uses smokeless tobacco every day, began using tobacco at the age of 16. Denies alcohol o r drug use. He lives in [facility]. He is retired. He is currently single. PHYSICAL EXAMINATION: This is a 67-year-old gentleman, lying supine in his hospital room bed. He was awake and alert and o riented. Speech is clear and fluent. He does require some redirection with discussion; however, he is pleasant. Mild confusion is evident. No head or neck trauma is evident. He does wear glasses. His dentition is poor. Focused examination of the right hip demonstrates skin warm, dry and intact. Cap refill less than 2 seconds. Dorsalis pedis and posterior tibial pulses are 2/4. Hair growth is normal. Feet are warm. Wm signs are negative. No calf tenderness. He has pain with internal a nd external rotation of the right hip, moderate discomfort with passive flexion and extension of the right hip with positive log-roll test and positive heel strike on the right. He has mild bruising ar ound the right greater trochanter and buttock. Laboratories and radiographs were reviewed, noting impacted right subcapital hip fracture, stable pat tern, however, requiring operative fixation. IMPRESSION: Right hip subcapital hip fracture; multiple medical comorbidities; currently off of his Xarelto. RECOMMENDATION: After speaking with the patient, explaining the need for stabilization of the subcapital hip fracture on the right, all potential risks, benefits, complications, alternatives and rehabilitation were dis cussed with the patient, the patient decided to proceed with the procedure as indicated. I then spok e with his medical power of staff attorney [facility]. I did explain the circumstances related to the surgical pr ocedure and all the risks and benefits associated. She gave verbal consent and this was witnessed by nurse on the floor who then signed the POA consent. The patient will be n.p.o. after midnight and s cheduled for surgery tomorrow. Thank you for the opportunity to consult in care of this patient. Job ID: [id number]
[2022-07-14] MEDS: LEVOTHYROXINE SODIUM 125 MCG TABLET PO SCH (05:48)
[2022-07-14] MEDS: POLYETHYLENE (MIRALAX) 17 GM PACK PO SCH (08:31)
[2022-07-14 08:32] LABS: Basophils # (auto) 0.05 K/uL (0-0.2); Basophils % (auto) 0.8 %; Eosinophils # (auto) 0.33 K/uL (0-0.50); Eosinophils % (auto) 5.5 %; Hematocrit (blood only) 37.8 % (42.0-52.0); Hemoglobin 13.5 g/dl (14.0-18.0); Immature Granulocytes # (auto) 0.02 K/uL (0.01-0.20); Immature Granulocytes % (auto) 0.3 %; Lymphocytes # (auto) 1.16 K/uL (1.2-3.4); Lymphocytes % (auto) 19.4 %; Mean Corpuscular Hemoglobin 31.3 pg (25.0-34.0); Mean Corpuscular Hgb Conc 35.7 g/dL (32.0-36.0); Mean Corpuscular Volume 87.5 fL (80.0-100.0); Mean Platelet Volume 9.5 fL (9.4-12.4); Monocytes % (auto) 8.3 %; Neutrophils # (auto) 3.93 K/uL (1.40-6.50); Neutrophils % (auto) 65.7 %; Platelet Count 150 K/uL (130-400); RDW Coefficient of Variation 13.9 % (11.5-14.5); RDW Standard Deviation 44.5 fL (36.4-46.3); Red Blood Count 4.32 M/uL (4.70-6.10); White Blood Count 5.99 K/ul (4.8-10.8)
[2022-07-14] MEDS: LANTUS PER UNIT CHARGE SQ SCH ×2 (08:36→21:27)
[2022-07-14] MEDS: INSULIN ASPART PER UNIT CHARGE SC SCH ×4 (08:36→21:27)
[2022-07-14] MEDS: AMIODARONE 200 MG TAB PO SCH ×2 (08:37→19:55)
[2022-07-14] MEDS: traMADol HCL 50 MG TABLET PO SCH ×3 (08:37→21:30)
[2022-07-14] MEDS: MAGNESIUM OXIDE 400 MG TAB PO SCH (08:37)
[2022-07-14] MEDS: CHOLECALCIFEROL 1,000 UNITS 25 MCG TAB PO SCH (08:38)
[2022-07-14] MEDS: SENNA 8.6 MG TAB PO SCH (08:38)
[2022-07-14] MEDS: NICOTINE 14 MG/24 HR PATCH TD SCH (08:39)
[2022-07-14 08:47] LABS: Calcium 8.9 mg/dl (8.6-10.3); Creatinine Clr Calc Pharmacy 94.3 ml/min; Est GFR (African American) 106.6 ml/min; Magnesium 1.7 mg/dl (1.7-2.4); Potassium 3.5 mmol/L (3.5-5.1)
[2022-07-14] MEDS: cefTRIAXone SODIUM 2,000 MG in DEXTROSE 5% 50 ML IV SCH (10:08)
[2022-07-14] MEDS: MAGNESIUM SULFATE / D5W 1 GM/100 ML BAG IV SCH ×2 (10:09→12:12)
[2022-07-14] MEDS: POTASSIUM CHLORIDE / WTR 10 MEQ/100 ML PLCT IV SCH ×2 (10:09→11:08)
[2022-07-14] MEDS ORDERED: fentaNYL citrate PF 100 MCG/2 ML VIAL ONE (12:37)
[2022-07-14] MEDS ORDERED: MIDAZOLAM HCL 1 MG/ML 2ML VIAL ONE (12:37)
[2022-07-14] MEDS ORDERED: ONDANSETRON INJ 2 MG/ML 2 ML VIAL ONE ×2 (12:38→13:41)
[2022-07-14] MEDS ORDERED: PROPOFOL IV EMULSION 10 MG/ML 20 ML VIAL IV ONE ×2 (12:38→15:21)
[2022-07-14] MEDS ORDERED: DEXAMETHASONE SOD INJ 4 MG/ML VIAL ONE (12:38)
--- NOTE | 2022-07-14 13:18 | Anesthesiology Consultation ---
Date of Service July 14, 2022 Assessment & Plan Chart Review Chart Review: Acceptable Risk for Surgery Consults Requested none ASA ASA3 Proposed Anesthesia Anesthesia Type: MAC Spinal Risk / Benefits Reviewed With: PT / POA / Parent / Guardian, Accepts Plan and Informed Consent Obtained History Surgery Operation Date: 07/14/22 13:00 Proposed Procedures p Right Hip Cannulated Screw - Luke Ballesteros, Height/Weight Height: 5 ft 11 in Weight: 84.1 kg Allergies Allergy/AdvReac Type Severity Reaction Status Date / Time No Known Allergies Allergy Verified 07/12/22 17:36 Medications Home Medications Medication Instructions Recorded Confirmed Last Taken Wheeled Walker #1 ea 03/21/21 07/04/22 Unknown cholecalciferol (vitamin D3) 50 2,000 unit PO DAILY #90 caps 01/23/22 07/12/22 Unknown mcg (2,000 unit) capsule levothyroxine 125 mcg tablet 125 mcg PO DAILY #30 tabs 01/23/22 07/12/22 Unknown magnesium oxide 400 mg PO DAILY #30 tabs 01/23/22 07/12/22 Unknown quetiapine 25 mg tablet 12.5 mg PO HS PRN Psychosis #30 01/23/22 07/12/22 Unknown tabs rivaroxaban 20 mg tablet (Xarelto) 20 mg PO HS #30 tabs 01/23/22 07/12/22 Unknown metformin 500 mg tablet,extended 500 mg PO BID #180 tabs 02/17/22 07/12/22 Unknown release 24 hr pen needle, diabetic, safety 30 #120 ea 05/12/22 07/04/22 Unknown gauge x 1/3" (Novofine Autocover) Wheelchair (Manual) #1 ea 05/19/22 07/04/22 Unknown lancets 21 gauge (ReadyLance #200 ea 06/06/22 07/04/22 Unknown Safety Lancets) acetaminophen 500 mg tablet 1,000 mg PO TID #90 tabs 06/20/22 07/12/22 Unknown (Tylenol Extra Strength) amiodarone 200 mg tablet 200 mg PO BIDM #60 tabs 06/20/22 07/12/22 Unknown insulin glargine 100 unit/mL (3 17 unit (0.17 mL) subcut QAM 90 07/03/22 07/12/22 Unknown mL) subcutaneous pen (Lantus days #15.3 mL Solostar U-100 Insulin) tramadol 50 mg tablet 50 mg PO TID pain #90 tabs 07/04/22 07/12/22 Unknown blood sugar diagnostic (OneTouch #200 ea 07/07/22 Unknown Ultra Test strips) atorvastatin 40 mg tablet 40 mg PO QAM 07/12/22 07/12/22 Unknown carbidopa ER 23.75 mg-levodopa 95 1 cap PO Q8 07/12/22 07/12/22 Unknown mg capsule,extended release insulin aspart U-100 100 unit/mL 4 unit subcut TIDWMEAL 07/12/22 07/12/22 Unknown (3 mL) subcutaneous pen (Novolog FlexPen U-100 Insulin aspart) cranberry extract 500 mg capsule 500 mg PO BID #60 caps 07/14/22 Unknown Active Medications Generic Name Dose Route Start Last Admin Trade Name Freq PRN Reason Stop Dose Admin Acetaminophen 650 mg 07/12/22 20:15 07/13/22 13:38 Acetaminophen 325 Mg Tab PO 08/11/22 20:14 650 mg Q4H PRN Administration Fever/Mild Pain (Pain 1,2,3) Amiodarone HCl 200 mg 07/13/22 17:00 07/14/22 08:37 Amiodarone 200 Mg Tab PO 08/12/22 16:59 200 mg BIDM JOSELITO Administration Atorvastatin Calcium 40 mg 07/12/22 21:00 07/13/22 22:09 Atorvastatin 40 Mg Tab PO 08/11/22 20:59 40 mg QPM JOSELITO Administration Ceftriaxone Sodium 2,000 mg/ 70 mls @ 100 mls/hr 07/13/22 10:00 07/14/22 11:10 Dextrose IV 07/23/22 09:59 Infused Q24H JOSELITO Infusion Protocol Magnesium Sulfate/Dextrose 1 gm in 100 mls @ 50 mls/hr 07/14/22 10:00 07/14/22 12:12 Magnesium Sulfate / D5w IV 07/14/22 13:59 50 mls/hr Q2H JOSELITO Administration Insulin Aspart 0 units 07/12/22 21:00 07/14/22 11:51 Insulin Aspart Per Unit Charge SC 08/11/22 20:59 Not Given ACHS [facility] Insulin Glargine 8 units 07/12/22 21:00 07/14/22 08:36 Lantus Per Unit Charge SQ 08/11/22 20:59 4 units BID JOSELITO Administration Levothyroxine Sodium 125 mcg 07/13/22 06:30 07/14/22 05:48 Levothyroxine Sodium 125 Mcg Tablet PO 08/12/22 06:29 125 mcg DAILYBB JOSELITO Administration Magnesium Oxide 400 mg 07/14/22 09:00 07/14/22 08:37 Magnesium Oxide 400 Mg Tab PO 08/13/22 08:59 400 mg DAILY JOSELITO Administration Miscellaneous 1 each 07/13/22 00:00 07/14/22 08:38 Carbidopa/Levodopa Er- Order Awaiting Action N/A 08/12/22 00:00 Not Given QS JOSELITO Miscellaneous 1 each 07/13/22 08:59 07/14/22 08:39 Remove Nicoderm Patch N/A 08/12/22 08:58 1 each DAILY@0859 JOSELITO Administration Nicotine 14 mg 07/13/22 09:00 07/14/22 08:39 Nicotine 14 Mg/24 Hr Patch TD 08/12/22 08:59 14 mg QAM JOSELITO Administration Polyethylene Glycol 17 gm 07/13/22 15:45 07/14/22 08:31 Polyethylene (Miralax) 17 Gm Pack PO 08/12/22 15:44 Not Given DAILY JOSELITO Quetiapine Fumarate 12.5 mg 07/12/22 20:15 07/12/22 22:03 Quetiapine Fumarate 25 Mg Tablet PO 08/11/22 20:14 12.5 mg HS PRN Administration Psychosis Sennosides 17.2 mg 07/13/22 15:30 07/14/22 08:38 Senna 8.6 Mg Tab PO 08/12/22 15:29 17.2 mg QAM JOSELITO Administration Tramadol HCl 50 mg 07/13/22 21:00 07/14/22 08:37 Tramadol Hcl 50 Mg Tablet PO 08/12/22 20:59 50 mg TID JOSELITO Administration Vitamin D 2,000 units 07/14/22 09:00 07/14/22 08:38 Cholecalciferol 1,000 Units 25 Mcg Tab PO 08/13/22 08:59 2,000 units DAILY JOSELITO Administration NPO Date Last Intake of Fluids: 07/13/22 Date Last Intake of Solids: 07/13/22 Past Medical History Medical History Acute blood loss anemia Acute encephalopathy Acute respiratory failure with hypoxemia Adult situational stress disorder Closed head injury Collapse Dilated aortic root Erectile dysfunction Leah's thyroiditis History of prostate cancer Hypoglycemia Mild cognitive impairment Paroxysmal SVT (supraventricular tachycardia) Pulmonary nodule Rash Renal cyst Renal lesion Septic prepatellar bursitis (07/2020) Sore throat Subcapital fracture of left hip Tubular adenoma of colon 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 Vitamin D deficiency Weakness Exercise / Class Metabolic Activity II 4-5 Yardwork/Stairs/Walk up hill Past Family History Family History Mother Cancer Grandmother (Paternal) Stroke Grandfather (Paternal) Stroke Other Myocardial infarction Denies family history of Ovarian cancer Prostate cancer Breast cancer Colorectal cancer Past Surgical History Surgical History History of left knee surgery History of shoulder surgery Left History of total left hip arthroplasty 12-20-21 Left Total Hip Arthroplasty-Uncemented(Left) - Jeremy Baker DO Past Anesthesia History No Hx of Anesthesia Complications Social History Smoking Status: Never smoker tobacco type: smokeless tobacco Do You Dip or Chew Tobacco: Yes Hx Alcohol Use: No alcohol intake frequency: other Hx Substance Use: No substance use type: does not use Review of Systems ROS Unobtainable: All systems reviewed & are unremarkable except as noted in HPI & below Physical Exam Vital Signs Last Vital Signs Temp 36.6 C 07/14/22 13:00 Pulse 54 L 07/14/22 13:00 Resp 18 07/14/22 13:00 BP 173/106 H 07/14/22 13:00 Pulse Ox 96 07/14/22 13:00 O2 Del Method Room Air 07/14/22 13:00 ENMT Mouth: + poor dentition Thyromental Distance: > or= 3.5 Finger Breadths Mallampati Class: II Respiratory Auscultation: lungs clear to auscultation bilaterally Cardiovascular Rate/Rhythm: regular rate and regular rhythm Testing Laboratory Results 07/14/22 07:40 07/14/22 07:40 PT 12.1 Seconds (9.0-12.0) H 07/12/22 15:42 INR 1.1 (0.9-1.1) 07/12/22 15:42 APTT 37.9 Seconds (21.0-31.0) H 07/13/22 04:19 Urine Color Yellow 07/12/22 16:26 Urine Appearance Turbid (Clear) A 07/12/22 16:26 Urine pH 7.5 (4.5-7.5) 07/12/22 16:26 Ur Specific [place] 1.021 (1.000-1.030) 07/12/22 16:26 Urine Protein 1+ (Negative) H 07/12/22 16:26 Urine Glucose (UA) Negative (Negative) 07/12/22 16: Urine Ketones Trace (Negative) H 07/12/22 16: Urine Nitrite Negative (Negative) 07/12/22 16:26 Ur Leukocyte Esterase 2+ (Negative) H 07/12/22 16:26 Urine WBC (Auto) >30 /hpf (0-5) H 07/12/22 16:26 Urine RBC (Auto) 0-4 /hpf (0-4) 07/12/22 16:26 U Hyaline Cast (Auto) 0 /lpf (0-5) 07/12/22 16:26 U Epithel Cells (Auto) 0-5 /lpf (0-5) 07/12/22 16:26 Urine Bacteria (Auto) 4+ (Negative) H 07/12/22 16:26 07/12/22 16:26 Urine Culture - Preliminary Urine,Straight Cath Gram positive cocci 07/14/22 07/14/22 11:22 07:28 POC Glucose 129 H 177 H
[2022-07-14] MEDS ORDERED: KETOROLAC 30 MG/ML VIAL ONE (13:40)
--- NOTE | 2022-07-14 13:54 | History & Physical Bridge Note ---
Date of Service July 14, 2022 History & Physical Bridge Note I have examined the patient, reviewed the History & Physical and in the interval since the performance of the History & Physical I have noted the following changes of clinical significance: no changes noted
[2022-07-14] MEDS ORDERED: ceFAZolin 2000MG 2,000 MG/15 ML SYR IV SCH (14:00)
[2022-07-14] MEDS ORDERED: BUPIVACAINE 0.5 % 5 MG/1 ML MPF 30ML VIAL ONE (14:52)
--- NOTE | 2022-07-14 15:52 | Post Operative Brief Note ---
Immediate Post Op Note v1 Date of Surgery July 14, 2022 Pre & Post Diagnosis Operation Date: 07/14/22 13:00 Pre-Op Diagnosis: Right valgus impacted subcapital hip fracture. Post-Op Diagnosis: Right valgus impacted subcapital hip fracture. I identified the patient and participated in the time-out.: Yes Procedure Operation Date: 07/14/22 13:00 Actual Procedures p Right Hip open reduction internal fixation valgus impacted subcapital fracture with 3X Synthes short thread cannulated Screws(Right) - Luke Ballesteros DO Surgeon Luke Ballesteros DO Roll Over Press Operator None Estimated Blood Loss 2 Findings Consistent with Post-Op Diagnosis Drains Cook Catheter Anesthesia Type Spinal MAC Complications none Disposition Accompanied Patient To Recovery: No
--- NOTE | 2022-07-14 16:37 | Fluoroscopy Report ---
FL hip RT 2-3V CLINICAL HISTORY: RT CANNULATED SCREWS COMPARISON STUDY: Pelvis and right hip radiograph July 12, 2022. FLUOROSCOPY TIME: 60 seconds. Ka, r: 11.69 mGy FLUOROSCOPIC IMAGES: 2 FINDINGS: Fluoroscopy was provided during internal fixation of the impacted subcapital right femoral neck fracture with 3 cannulated screws. Hardware is intact. Fracture is nondisplaced. IMPRESSION: Fluoroscopy provided during internal fixation of the right femoral neck fracture with 3 cannulated screws. ACT 112: Negative or not required by law. Electronically signed by: Luke Hector M.D. 07/14/2022 4:36 PM
--- NOTE | 2022-07-14 18:17 | Anesthesiology Progress Note ---
Date of Service July 14, 2022 Anesthesia Post Procedure Vital Signs Vital Signs: Temp Pulse Pulse Pulse Pulse Pulse Resp 07/14/22 18:00 67 17 07/14/22 17:50 47 L 15 07/14/22 17:40 54 L 14 07/14/22 17:30 60 17 07/14/22 17:20 70 21 07/14/22 16:10 42 L 18 07/14/22 16:00 45 L 20 07/14/22 17:10 49 L 15 07/14/22 17:00 48 L 14 07/14/22 16:50 50 L 14 07/14/22 16:40 40 L 12 07/14/22 16:30 42 L 12 07/14/22 16:20 44 L 15 07/14/22 15:50 47 L 16 07/14/22 15:46 36.0 C L 48 L 14 07/14/22 14:56 56 L 07/14/22 13:00 36.6 C 54 L 18 07/14/22 11:29 36.7 C 51 L 18 07/14/22 08:00 07/14/22 07:34 36.6 C 56 L 18 07/14/22 03:28 36.9 C 62 18 07/13/22 23:52 62 07/13/22 22:16 36.8 C 56 L 18 07/13/22 19:30 36.5 C 56 L 16 BP BP Pulse Ox O2 Del Method O2 Flow Rate 07/14/22 18:00 170/90 H 96 Room Air 07/14/22 17:50 172/105 H 96 Room Air 07/14/22 17:40 177/100 H 96 Room Air 07/14/22 17:30 160/90 H 96 Room Air 07/14/22 17:20 173/106 H 96 Room Air 07/14/22 16:10 154/90 H 96 Room Air 07/14/22 16:00 154/88 H 99 Room Air 07/14/22 17:10 164/94 H 94 Room Air 07/14/22 17:00 169/94 H 96 Room Air 07/14/22 16:50 163/97 H 97 Room Air 07/14/22 16:40 155/86 H 97 Room Air 07/14/22 16:30 170/89 H 96 Room Air 07/14/22 16:20 166/88 H 95 Room Air 07/14/22 15:50 137/84 99 Room Air 07/14/22 15:46 137/86 99 Oxymask 6 07/14/22 14:56 07/14/22 13:00 173/106 H 96 Room Air 07/14/22 11:29 153/89 H 99 Room Air 07/14/22 08:00 Room Air 07/14/22 07:34 150/92 H 97 Room Air 07/14/22 03:28 153/84 H 95 Room Air 07/13/22 23:52 07/13/22 22:16 161/91 H 96 Room Air 07/13/22 19:30 148/87 H 96 Room Air Pain Intensity Right Hip: Pain Intensity: 4 Transfer of Care Handoff Completed per policy Notes Mental Status: alert / awake / arousable and participated in evaluation Patient Amnestic to Procedure: Yes Nausea / Vomiting: adequately controlled Pain: adequately controlled Airway Patency, RR, SpO2: stable & adequate BP & HR: stable & adequate Hydration State: stable & adequate Neuraxial Anesthesia: was administered and sensory block is resolving Anesthetic Complications: no major complications apparent and Pt Satisfied with anesthetic care
--- NOTE | 2022-07-14 18:56 | Hospitalist Progress Note ---
Date of Service July 14, 2022 Assessment & Plan (1) Closed right hip fracture: Plan: Fall, R Hip Fracture - Pt reports fell while transferring to wheelchair, missed the chair. No presyncope/syncope/dizziness that contributed - EKG on admit sinus estefania 1st degree block, RBBB. No SVT/Afib -Surgery delayed while holding rivaroxaban -Appreciate orthopedics consultation-now status post surgical repair on 07/14 -Follow CBC, BMP in the morning -Pain control with Tylenol, tramadol, Dilaudid as needed -PT/OT evals Bowel regimen (2) UTI (urinary tract infection): Plan: UTI present on admission Approver/POA reports that he had been having unexpected urinary frequency and urgency with incontinence a few days before his fall/admission Continue ceftriaxone Follow urine ltspgyk-hddv-kbnhrdqq cocci Blood cultures no growth to date Cook catheter in place (3) Electrolyte abnormality: Plan: With hypomagnesemia and hypokalemia now improving but remains slightly low Replace with IV potassium chloride and IV magnesium today Follow BMP and magnesium in the morning (4) Type 2 diabetes mellitus: Plan: [id number] insulin at home Continue Lantus and NovoLog, adjust as needed Blood glucose here is well controlled Hemoglobin A1c 6.5% in 05/2022 (5) Paroxysmal SVT (supraventricular tachycardia): Plan: SVT, hx pAfib-with recent admission for such Remains in sinus bradycardia normal sinus rhythm on telemetry monitoring -His amiodarone dose was to be reduced down to 200 mg once daily as of 07/12- reduced dose here Patient has been referred for outpatient consideration of ablation, his next follow-up is in 4 months and this was deferred at last visit per patient Last documented A-fib was 06/14 -Monitor on telemetry -Holding Xarelto for hip surgery-hopeful can restart tomorrow -It appears his previous metoprolol was discontinued recently as well (6) Paroxysmal A-fib: Plan: As noted above (7) Hypothyroidism: Plan: TSH 1.9 in 05/2022 - Continue synthroid 125mcg daily (8) BPH with urinary obstruction: Plan: Cook catheter placed while immobile with hip fracture, will trial of void once ambulatory with physical therapy (9) Cognitive impairment: Plan: Mild, supportive care (10) Parkinsonism: Plan: With tremor improved on Sinemet Continue home Sinemet which needs to be brought in from home as it is extended release Plan DVT prophylaxis-SCDs, eventual restarting of Xarelto Disposition-continued stay, will need rehab placement Admission and Anticipated Discharge Date Admission Date: July 12, 2022 Subjective Patient seen in the PACU after surgery. Reports he is feeling very well. No concerns or problems. Telemetry prior to surgery sinus bradycardia and normal sinus rhythm with rates in the 50s to 60s Physical Exam Constitutional: WD/WN, vitals as above Respiratory: normal respiratory effort, lungs clear to auscultation Cardiovascular: RRR, no murmur, no edema Gastrointestinal (Abdomen): normal bowel sounds, soft, nontender, no hepatosplenomegaly Musculoskeletal: Extremities: + extremities abnormal to inspection (Right hip with dressing in place clean dry and intact) Neurologic: Motor/Sensory: no tremor Psychiatric: Orientation: alert, oriented to person, oriented to place and cooperative Results & Data Results & Data Vital Signs (Past 12 Hours) Vital Signs Temp Pulse Pulse Pulse Pulse Resp BP 07/14/22 18:15 36.4 C L 54 L 16 163/91 H 07/14/22 18:00 67 17 170/90 H 07/14/22 17:50 47 L 15 172/105 H 07/14/22 17:40 54 L 14 177/100 H 07/14/22 17:30 60 17 160/90 H 07/14/22 17:20 70 21 173/106 H 07/14/22 16:10 42 L 18 154/90 H 07/14/22 16:00 45 L 20 154/88 H 07/14/22 17:10 49 L 15 164/94 H 07/14/22 17:00 48 L 14 169/94 H 07/14/22 16:50 50 L 14 163/97 H 07/14/22 16:40 40 L 12 155/86 H 07/14/22 16:30 42 L 12 170/89 H 07/14/22 16:20 44 L 15 166/88 H 07/14/22 15:50 47 L 16 137/84 07/14/22 15:46 36.0 C L 48 L 14 137/86 07/14/22 14:56 56 L 07/14/22 13:00 36.6 C 54 L 18 07/14/22 11:29 36.7 C 51 L 18 153/89 H 07/14/22 08:00 07/14/22 07:34 36.6 C 56 L 18 150/92 H BP Pulse Ox O2 Del Method O2 Flow Rate 07/14/22 18:15 98 Room Air 07/14/22 18:00 96 Room Air 07/14/22 17:50 96 Room Air 07/14/22 17:40 96 Room Air 07/14/22 17:30 96 Room Air 07/14/22 17:20 96 Room Air 07/14/22 16:10 96 Room Air 07/14/22 16:00 99 Room Air 07/14/22 17:10 94 Room Air 07/14/22 17:00 96 Room Air 07/14/22 16:50 97 Room Air 07/14/22 16:40 97 Room Air 07/14/22 16:30 96 Room Air 07/14/22 16:20 95 Room Air 07/14/22 15:50 99 Room Air 07/14/22 15:46 99 Oxymask 6 07/14/22 14:56 07/14/22 13:00 173/106 H 96 Room Air 07/14/22 11:29 99 Room Air 07/14/22 08:00 Room Air 07/14/22 07:34 97 Room Air Laboratory Results CBC, BMP, magnesium levels reviewed Urine culture with gram-positive cocci PG Care Time/CCT Total # of Minutes Spent Total Time Spent with Patient: Total time spent is greater than 50% in coordination of care (as documented) at patient's floor/unit and/or counseling patient: Coding Level of Care Code 46853 SUB INP/OBS CARE 2/35MIN Diagnoses Closed right hip fracture S72.001A UTI (urinary tract infection) N39.0 Electrolyte abnormality E87.8 Type 2 diabetes mellitus E11.9 Paroxysmal SVT (supraventricular tachycardia) I47.1 Paroxysmal A-fib I48.0 Hypothyroidism E03.9 BPH with urinary obstruction N40.1; N13.8 Cognitive impairment R41.89 Parkinsonism G20
[2022-07-14] MEDS: ATORVASTATIN 40 MG TAB PO SCH (21:30)
[2022-07-14] MEDS: ceFAZolin 1000MG 1,000 MG/7.5 ML SYR IV SCH (21:30)
[2022-07-15] MEDS: LEVOTHYROXINE SODIUM 125 MCG TABLET PO SCH (05:41)
[2022-07-15] MEDS: ceFAZolin 1000MG 1,000 MG/7.5 ML SYR IV SCH ×2 (05:41→13:29)
[2022-07-15 07:43] LABS: Basophils # (auto) 0.04 K/uL (0-0.2); Basophils % (auto) 0.6 %; Eosinophils # (auto) 0.35 K/uL (0-0.50); Eosinophils % (auto) 5.7 %; Hematocrit (blood only) 36.7 % (42.0-52.0); Hemoglobin 13.1 g/dl (14.0-18.0); Immature Granulocytes # (auto) 0.04 K/uL (0.01-0.20); Immature Granulocytes % (auto) 0.6 %; Lymphocytes # (auto) 1.03 K/uL (1.2-3.4); Lymphocytes % (auto) 16.7 %; Mean Corpuscular Hemoglobin 31.6 pg (25.0-34.0); Mean Corpuscular Hgb Conc 35.7 g/dL (32.0-36.0); Mean Corpuscular Volume 88.6 fL (80.0-100.0); Mean Platelet Volume 9.6 fL (9.4-12.4); Monocytes # (auto) 0.62 K/uL (0.11-0.59); Neutrophils # (auto) 4.09 K/uL (1.40-6.50); Neutrophils % (auto) 66.4 %; Platelet Count 148 K/uL (130-400); RDW Coefficient of Variation 13.6 % (11.5-14.5); RDW Standard Deviation 44.3 fL (36.4-46.3); Red Blood Count 4.14 M/uL (4.70-6.10); White Blood Count 6.17 K/ul (4.8-10.8)
[2022-07-15 07:49] LABS: BUN Creatinine Ratio 17.6 (10-20); Calcium 8.6 mg/dl (8.6-10.3); Creatinine Clr Calc Pharmacy 103.2 ml/min; Est GFR (African American) 110.6 ml/min; Est GFR (Non-African American) 95.4 ml/min; Magnesium 1.7 mg/dl (1.7-2.4); Potassium 3.7 mmol/L (3.5-5.1)
[2022-07-15] MEDS: INSULIN ASPART PER UNIT CHARGE SC SCH ×4 (07:55→21:14)
[2022-07-15] MEDS: NICOTINE 14 MG/24 HR PATCH TD SCH (08:07)
[2022-07-15] MEDS: SENNA 8.6 MG TAB PO SCH (08:09)
[2022-07-15] MEDS: CHOLECALCIFEROL 1,000 UNITS 25 MCG TAB PO SCH (08:09)
[2022-07-15] MEDS: MAGNESIUM OXIDE 400 MG TAB PO SCH (08:09)
[2022-07-15] MEDS: AMIODARONE 200 MG TAB PO SCH (08:11)
[2022-07-15] MEDS: POLYETHYLENE (MIRALAX) 17 GM PACK PO SCH (08:14)
[2022-07-15] MEDS: traMADol HCL 50 MG TABLET PO SCH ×3 (08:14→21:13)
[2022-07-15] MEDS: LANTUS PER UNIT CHARGE SQ SCH ×2 (08:19→21:15)
[2022-07-15] MEDS ORDERED: POTASSIUM CHLORIDE CRTAB 20 MEQ TABCR PO STA (08:44)
[2022-07-15] MEDS ORDERED: MAGNESIUM SULFATE / D5W 1 GM/100 ML BAG IV ONE (09:00)
[2022-07-15] MEDS: cefTRIAXone SODIUM 2,000 MG in DEXTROSE 5% 50 ML IV SCH (11:27)
--- NOTE | 2022-07-15 13:33 | Hospitalist Progress Note ---
Date of Service July 15, 2022 Assessment & Plan (1) Closed right hip fracture: Plan: Fall, R Hip Fracture - Pt reports fell while transferring to wheelchair, missed the chair. No presyncope/syncope/dizziness that contributed - EKG on admit sinus estefania 1st degree block, RBBB. 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 that he had been having unexpected urinary frequency and urgency with incontinence a few days before his fall/admission Continue ceftriaxone Follow urine pabxenl-nhtm-fbamzagw cocci thus far Blood cultures no growth to date Cook catheter in place but remove when gets up with PT (3) Electrolyte abnormality: Plan: With hypomagnesemia and hypokalemia now improving but remains slightly low Replace with po potassium chloride and IV magnesium today Follow BMP and magnesium in the morning (4) Type 2 diabetes mellitus: Plan: W3LI-tn insulin at home Continue Lantus and NovoLog, adjust as needed-tighten down CF and CR today Blood glucose here is with some hyperglycemia today Hemoglobin A1c 6.5% in 05/2022 (5) Paroxysmal SVT (supraventricular tachycardia): Plan: SVT, hx pAfib-with recent admission for such Remains in sinus bradycardia normal sinus rhythm on telemetry monitoring -His amiodarone dose was to be reduced down to 200 mg once daily as of 07/12- reduced dose here Patient has been referred for outpatient consideration of ablation, his next fo llow-up is in 4 months and this was deferred at last visit per patient Last documented A-fib was 06/14 -Monitor on telemetry -Holding Xarelto for hip surgery-hopeful can restart this evening if ok with Ortho-reached out and awaiting response -It appears his previous metoprolol was discontinued recently as well (6) Paroxysmal A-fib: Plan: As noted above (7) Hypothyroidism: Plan: TSH 1.9 in 05/2022 - Continue synthroid 125mcg daily (8) BPH with urinary obstruction: Plan: Cook catheter placed while immobile with hip fracture, will trial of void once ambulatory with physical therapy (9) Cognitive impairment: Plan: Mild, supportive care (10) Parkinsonism: Plan: With tremor improved on Sinemet Continue home Sinemet which needs to be brought in from home as it is extended release-d/w POA Guerline and she will work on getting this med from [facility] in meantime, start Sinemet 25/100mg po tid here Plan DVT prophylaxis-SCDs, eventual restarting of Xarelto Disposition-continued stay, will need rehab placement, awaiting PT/OT tavares Discussed care with POA Med on phone on 07/15 Admission and Anticipated Discharge Date Admission Date: July 12, 2022 Subjective Pt has minimal pain in hip, feels good. Has not yet worked with PT. Denies CP, SOB, nausea, abd pain. Tele with SB and NSR rates 50-60s Physical Exam Constitutional: WD/WN, vitals as above Eyes: + anicteric sclerae Respiratory: normal respiratory effort, lungs clear to auscultation Cardiovascular: RRR, no murmur, no edema Gastrointestinal (Abdomen): normal bowel sounds, soft, nontender, no hepatosplenomegaly Musculoskeletal: Extremities: + extremities abnormal to inspection (Right hip with dressing in place clean dry and intact) Neurologic: Motor/Sensory: no tremor Psychiatric: Orientation: alert, oriented to person, oriented to place and cooperative Results & Data Results & Data Vital Signs (Past 12 Hours) Vital Signs Temp Pulse Pulse Resp BP Pulse Ox O2 Del Method 07/15/22 11:08 36.8 C 56 L 18 182/92 H 93 Room Air 07/15/22 06:38 67 07/15/22 07:34 36.6 C 51 L 18 171/95 H 96 Room Air 07/15/22 03:21 36.5 C 53 L 18 154/88 H 94 Room Air Laboratory Results CBC, BMP, magnesium reviewed Ur cx GPC PG Care Time/CCT Total # of Minutes Spent Total Time Spent with Patient: Total time spent is greater than 50% in coordination of care (as documented) at patient's floor/unit and/or counseling patient: Coding Level of Care Code 45072 SUB INP/OBS CARE 2/35MIN Diagnoses Closed right hip fracture S72.001A UTI (urinary tract infection) N39.0 Electrolyte abnormality E87.8 Type 2 diabetes mellitus E11.9 Paroxysmal SVT (supraventricular tachycardia) I47.1 Paroxysmal A-fib I48.0 Hypothyroidism E03.9 BPH with urinary obstruction N40.1; N13.8 Cognitive impairment R41.89 Parkinsonism G20
[2022-07-15] MEDS ORDERED: CARBIDOPA/LEVODOPA 25/100MG TAB PO SCH (14:00)
--- NOTE | 2022-07-15 16:44 | Orthopedic Progress Note ---
Date of Service July 15, 2022 Assessment & Plan (1) Subcapital fracture of right hip: Plan: Postop day #1 status post ORIF right hip with cannulated screws x3. Patient tolerated procedure well. Multiple medical comorbidities. Recommendation: for physical therapy and Occupational Therapy with partial weightbearing right lower extremity with walker and assist x1. Continue DVT prophylaxis per medical team. Continue ice to the site daily. Nursing to change dressing tomorrow. Stable for discharge to [facility] with physical therapy capability tomorrow if approved by medical team. (2) Electrolyte abnormality: (3) UTI (urinary tract infection): (4) Closed right hip fracture: (5) Contusion of buttock: (6) Cognitive impairment: (7) Parkinsonism: (8) Type 2 diabetes mellitus: (9) Paroxysmal A-fib: Admission and Anticipated Discharge Date Admission Date: July 12, 2022 Subjective Patient seen on rounds. Patient awake and alert. Patient states no pain in right hip. He states that he was working with the physical therapist today. Denies calf pain, CP, SOB, nausea, abd pain. Physical Exam Physical Exam: Focused examination right hip demonstrates intact dressing without evidence of strikethrough. Clean and dry skin. Skin is warm. Pedal pulses palpable. No calf tenderness. Homans' sign negative. Spontaneous motion at the bilateral hips and lower extremities without pain or difficulty. Results & Data Vital Signs (Past 12 Hours) Vital Signs Temp Pulse Pulse Resp BP Pulse Ox O2 Del Method 07/15/22 15:00 70 07/15/22 15:13 36.7 C 59 L 18 166/98 H 97 Room Air 07/15/22 11:08 36.8 C 56 L 18 182/92 H 93 Room Air 07/15/22 06:38 67 07/15/22 07:34 36.6 C 51 L 18 171/95 H 96 Room Air
[2022-07-15] MEDS: RIVAROXABAN 20 MG TAB PO SCH (17:11)
[2022-07-15] MEDS: ATORVASTATIN 40 MG TAB PO SCH (21:13)
[2022-07-15] MEDS: [UNRECOGNIZED DRUG - OTHER] PO SCH (21:14)
[2022-07-15] MEDS: CARBIDOPA LEVODOPA PO SCH (21:14)
[2022-07-16] MEDS: LEVOTHYROXINE SODIUM 125 MCG TABLET PO SCH (06:00)
[2022-07-16 07:54] LABS: Basophils # (auto) 0.03 K/uL (0-0.2); Basophils % (auto) 0.5 %; Eosinophils # (auto) 0.24 K/uL (0-0.50); Eosinophils % (auto) 4.4 %; Immature Granulocytes # (auto) 0.02 K/uL (0.01-0.20); Immature Granulocytes % (auto) 0.4 %; Lymphocytes # (auto) 1.04 K/uL (1.2-3.4); Lymphocytes % (auto) 18.9 %; Mean Corpuscular Hemoglobin 31.5 pg (25.0-34.0); Mean Corpuscular Hgb Conc 35.1 g/dL (32.0-36.0); Mean Corpuscular Volume 89.6 fL (80.0-100.0); Mean Platelet Volume 9.4 fL (9.4-12.4); Monocytes # (auto) 0.59 K/uL (0.11-0.59); Monocytes % (auto) 10.7 %; Neutrophils # (auto) 3.57 K/uL (1.40-6.50); Neutrophils % (auto) 65.1 %; Platelet Count 144 K/uL (130-400); RDW Coefficient of Variation 13.6 % (11.5-14.5); RDW Standard Deviation 44.8 fL (36.4-46.3); Red Blood Count 4.13 M/uL (4.70-6.10); White Blood Count 5.49 K/ul (4.8-10.8)
[2022-07-16 08:10] LABS: BUN Creatinine Ratio 17.3 (10-20); Calcium 8.5 mg/dl (8.6-10.3); Creatinine Clr Calc Pharmacy 94.3 ml/min; Est GFR (African American) 106.6 ml/min; Magnesium 1.6 mg/dl (1.7-2.4); Potassium 3.5 mmol/L (3.5-5.1)
[2022-07-16] MEDS ORDERED: POTASSIUM CHLORIDE CRTAB 20 MEQ TABCR PO STA (08:39)
[2022-07-16] MEDS: INSULIN ASPART PER UNIT CHARGE SC SCH ×4 (08:47→20:47)
[2022-07-16] MEDS: traMADol HCL 50 MG TABLET PO SCH ×3 (08:53→20:48)
[2022-07-16] MEDS: [UNRECOGNIZED DRUG - OTHER] PO SCH ×3 (08:55→20:42)
[2022-07-16] MEDS: CARBIDOPA LEVODOPA PO SCH ×3 (08:55→20:42)
[2022-07-16] MEDS: AMIODARONE 200 MG TAB PO SCH (08:56)
[2022-07-16] MEDS: SENNA 8.6 MG TAB PO SCH (08:58)
[2022-07-16] MEDS: MAGNESIUM OXIDE 400 MG TAB PO SCH (08:58)
[2022-07-16] MEDS: NICOTINE 14 MG/24 HR PATCH TD SCH (08:59)
[2022-07-16] MEDS: POLYETHYLENE (MIRALAX) 17 GM PACK PO SCH (09:00)
[2022-07-16] MEDS: MAGNESIUM SULFATE / D5W 1 GM/100 ML BAG IV SCH ×2 (09:00→11:06)
[2022-07-16] MEDS ORDERED: LANTUS PER UNIT CHARGE SQ SCH (09:00)
[2022-07-16] MEDS: CHOLECALCIFEROL 1,000 UNITS 25 MCG TAB PO SCH (09:01)
[2022-07-16] MEDS: AMOXICILLIN 500 MG CAP PO SCH ×3 (09:34→20:42)
--- NOTE | 2022-07-16 12:47 | Orthopedic Progress Note ---
Date of Service July 16, 2022 Assessment & Plan (1) Subcapital fracture of right hip: Plan: Postop day #2 status post ORIF right hip with cannulated screws x3. Patient tolerated procedure well. Multiple medical comorbidities. Recommendations: Continue physical therapy and Occupational Therapy with partial weightbearing right lower extremity with walker and assist x1. Continue pharmaceutical DVT prophylaxis per medical team due to patient arrhythmia. Continue ice to the site daily. Nursing to change dressing today. Stable for discharge to [facility] with physical therapy capability as soon as available per accepting facility/insurance and if approved by medical team. Patient may have jerry removed right hip 12 to 15 days postoperatively by the nursing staff at his E[facility]. Continue partial weightbearing right lower extremity with a walker and assist x1 for period of 5 to 6 weeks. Follow-up with Dr. Ballesteros at [facility] approximately 2 weeks from discharge date. Call for appointment Admission and Anticipated Discharge Date Admission Date: July 12, 2022 Subjective Patient seen on rounds with no visitors present. Patient awake and alert. Patient states no pain in right hip. He states that he was working with the physical therapist yesterday however not today. He states that he is eager to discharge from the hospital. Denies calf pain, CP, SOB, nausea, abd pain. Physical Exam Physical Exam: Patient is awake and alert. Affect is appropriate and responds to questions. Focused examination right hip demonstrates right hip dressing clean, dry and intact without evidence of discharge or drainage. Minimal tenderness at the operative site right hip. Range of motion improving both active and passive. Negative logroll and negative heel strike test right. No calf tenderness. Negative Homans' sign. Pedal pulses palpable. Results & Data Vital Signs (Past 12 Hours) Vital Signs Temp Pulse Pulse Resp BP Pulse Ox O2 Del Method 07/16/22 10:45 36.7 C 59 L 18 171/98 H 97 Room Air 07/16/22 07:42 36.8 C 54 L 18 160/93 H 95 Room Air 07/16/22 06:40 54 L 07/16/22 02:27 37 C 60 16 153/94 H 96 Room Air Laboratory Results Laboratories and results reviewed.
[2022-07-16] MEDS: RIVAROXABAN 20 MG TAB PO SCH (16:59)
--- NOTE | 2022-07-16 17:27 | Hospitalist Progress Note ---
Date of Service July 16, 2022 Assessment & Plan (1) Closed right hip fracture: Plan: Fall, R Hip Fracture - Pt reports fell while transferring to wheelchair, missed the chair. No presyncope/syncope/dizziness that contributed - EKG on admit sinus estefania 1st degree block, RBBB. No SVT/Afib -Surgery delayed for 2 days due to rivaroxaban use -Appreciate orthopedics consultation-now status post surgical repair on 07/14 -doing well post-op, pain is controlled -Follow CBC, BMP in the morning-stable, no hgb drop thus far -Pain control with Tylenol, tramadol, Dilaudid as needed -PT/OT evals appreciated-needs rehab -Continue bowel regimen started given h/o severe constipation-had 2 bowel movements on 07/16 -Follow-up with orthopedic surgery as an outpatient in 4 to 6 weeks, staple removal 2 weeks postop can be done at the rehab (2) UTI (urinary tract infection): Plan: UTI present on admission Clerical Support/POA reports that he had been having unexpected urinary frequency and urgency with incontinence a few days before his fall/admission Urine culture growing alpha Streptococcus, not Enterococcus Blood cultures no growth to date Treated with ceftriaxone x2 doses, now transition to amoxicillin 500 Mg p.o. 3 times daily to complete a 10-day course Cook catheter in place and patient refuses to have it removed at this time due to fears of incontinence and painful catheter removal. Continue to encourage removal. Cautioned that Cook catheter can cause him worsening infection Hopeful to remove catheter tomorrow (3) Electrolyte abnormality: Plan: With hypomagnesemia and hypokalemia ongoing Replace with po potassium chloride and IV magnesium again today Follow BMP and magnesium in the morning (4) Type 2 diabetes mellitus: Plan: [id number] insulin at home. With ongoing hyperglycemia here Increase Lantus to 12 units twice daily and tighten down NovoLog correction factor to 25, continue carb ratio of 11 Holding home metformin Hemoglobin A1c 6.5% in 05/2022 (5) Paroxysmal SVT (supraventricular tachycardia): Plan: SVT, hx pAfib-with recent admission for such Remains in sinus bradycardia normal sinus rhythm on telemetry monitoring -His amiodarone dose was to be reduced down to 200 mg once daily as of 07/12- reduced dose here Patient has been referred for outpatient consideration of ablation, his next follow-up is in 4 months and this was deferred at last visit per patient -Monitor on telemetry -Xarelto was restarted postoperatively -It appears his previous metoprolol was discontinued recently as well (6) Paroxysmal A-fib: Plan: As noted above (7) Hypothyroidism: Plan: TSH 1.9 in 05/2022 - Continue synthroid 125mcg daily (8) BPH with urinary obstruction: Plan: Cook catheter placed while immobile with hip fracture, will trial of void hopefully tomorrow as above (9) Cognitive impairment: Plan: Mild, supportive care (10) Parkinsonism: Plan: With tremor improved on Sinemet Continue home Sinemet extended release 3 times daily Plan DVT prophylaxis-SCDs, Xarelto Disposition-medically stable for discharge, awaiting rehab placement Discussed care with LINDSAY Maldonado on phone on 07/15 and at the bedside on 07/16 Admission and Anticipated Discharge Date Admission Date: July 12, 2022 Subjective Patient reports feeling well. Pain is controlled although had a lot of difficulty working with physical therapy today due to his Parkinson's. Was able to get out of bed to chair with assistance No chest pains or shortness of breath. Telemetry with normal sinus rhythm and normal rates Patient continues to refuse to have Cook catheter removed. He does not want to have incontinence, offered condom catheter but he refuses. He is also fearful of pain with removal of Cook catheter. Discussed his care with his friend/POA, Guerline, at the bedside. Physical Exam Constitutional: WD/WN, vitals as above Eyes: + anicteric sclerae Respiratory: normal respiratory effort, lungs clear to auscultation Cardiovascular: RRR, no murmur, no edema Gastrointestinal (Abdomen): normal bowel sounds, soft, nontender, no hepatosplenomegaly Musculoskeletal: Extremities: + extremities abnormal to inspection (Right hip with dressing in place clean dry and intact) Neurologic: Motor/Sensory: no tremor Psychiatric: Orientation: alert, oriented to person, oriented to place and cooperative Genitourinary: Cook catheter in place with Clear yellow urine Results & Data Results & Data Vital Signs (Past 12 Hours) Vital Signs Temp Pulse Pulse Resp BP Pulse Ox O2 Del Method 07/16/22 15:24 36.6 C 77 18 142/103 H 98 Room Air 07/16/22 14:56 61 07/16/22 10:45 36.7 C 59 L 18 171/98 H 97 Room Air 07/16/22 07:42 36.8 C 54 L 18 160/93 H 95 Room Air 07/16/22 06:40 54 L Laboratory Results CBC, BMP, magnesium level reviewed Urine culture with alpha Streptococcus, not Enterococcus PG Care Time/CCT Total # of Minutes Spent Total Time Spent with Patient: Total time spent is greater than 50% in coordination of care (as documented) at patient's floor/unit and/or counseling patient: Coding Level of Care Code 04950 SUB INP/OBS CARE 2/35MIN Diagnoses Closed right hip fracture S72.001A UTI (urinary tract infection) N39.0 Electrolyte abnormality E87.8 Type 2 diabetes mellitus E11.9 Paroxysmal SVT (supraventricular tachycardia) I47.1 Paroxysmal A-fib I48.0 Hypothyroidism E03.9 BPH with urinary obstruction N40.1; N13.8 Cognitive impairment R41.89 Parkinsonism G20
[2022-07-16] MEDS: ATORVASTATIN 40 MG TAB PO SCH (20:43)
[2022-07-16] MEDS: LANTUS PER UNIT CHARGE SQ SCH (20:47)
[2022-07-17] MEDS: LEVOTHYROXINE SODIUM 125 MCG TABLET PO SCH (06:19)
[2022-07-17 07:51] LABS: Basophils # (auto) 0.03 K/uL (0-0.2); Basophils % (auto) 0.5 %; Eosinophils # (auto) 0.27 K/uL (0-0.50); Eosinophils % (auto) 4.1 %; Hematocrit (blood only) 37.9 % (42.0-52.0); Hemoglobin 13.1 g/dl (14.0-18.0); Immature Granulocytes # (auto) 0.03 K/uL (0.01-0.20); Immature Granulocytes % (auto) 0.5 %; Lymphocytes # (auto) 1.45 K/uL (1.2-3.4); Lymphocytes % (auto) 22.2 %; Mean Corpuscular Hgb Conc 34.6 g/dL (32.0-36.0); Mean Corpuscular Volume 89.6 fL (80.0-100.0); Mean Platelet Volume 9.3 fL (9.4-12.4); Monocytes # (auto) 0.79 K/uL (0.11-0.59); Monocytes % (auto) 12.1 %; Neutrophils # (auto) 3.95 K/uL (1.40-6.50); Neutrophils % (auto) 60.6 %; Platelet Count 155 K/uL (130-400); RDW Coefficient of Variation 13.7 % (11.5-14.5); RDW Standard Deviation 44.5 fL (36.4-46.3); Red Blood Count 4.23 M/uL (4.70-6.10); White Blood Count 6.52 K/ul (4.8-10.8)
[2022-07-17 08:10] LABS: BUN Creatinine Ratio 26.8 (10-20); Calcium 8.6 mg/dl (8.6-10.3); Creatinine Clr Calc Pharmacy 93.1 ml/min; Est GFR (African American) 106.1 ml/min; Est GFR (Non-African American) 91.5 ml/min; Magnesium 1.8 mg/dl (1.7-2.4); Potassium 4.2 mmol/L (3.5-5.1)
[2022-07-17] MEDS: INSULIN ASPART PER UNIT CHARGE SC SCH ×4 (08:50→21:41)
[2022-07-17] MEDS: LANTUS PER UNIT CHARGE SQ SCH ×2 (08:50→21:38)
[2022-07-17] MEDS: MAGNESIUM OXIDE 400 MG TAB PO SCH (08:54)
[2022-07-17] MEDS: CHOLECALCIFEROL 1,000 UNITS 25 MCG TAB PO SCH (08:54)
[2022-07-17] MEDS: AMOXICILLIN 500 MG CAP PO SCH ×3 (08:54→21:37)
[2022-07-17] MEDS: SENNA 8.6 MG TAB PO SCH (08:56)
[2022-07-17] MEDS: AMIODARONE 200 MG TAB PO SCH (08:56)
[2022-07-17] MEDS: POLYETHYLENE (MIRALAX) 17 GM PACK PO SCH (08:56)
[2022-07-17] MEDS: NICOTINE 14 MG/24 HR PATCH TD SCH (08:57)
[2022-07-17] MEDS: CARBIDOPA LEVODOPA PO SCH ×3 (08:58→21:41)
[2022-07-17] MEDS: [UNRECOGNIZED DRUG - OTHER] PO SCH ×3 (08:58→21:41)
[2022-07-17] MEDS: traMADol HCL 50 MG TABLET PO SCH ×3 (09:02→21:37)
--- NOTE | 2022-07-17 12:41 | Operative Report (OR) ---
PREOPERATIVE DIAGNOSIS: Right valgus impacted subcapital hip fracture. POSTOPERATIVE DIAGNOSIS: Right valgus impacted subcapital hip fracture. PROCEDURE: Open reduction and internal fixation of right valgus impacted subcapital hip fracture with cannulated screws x3. SURGEON: Luke Ballesteros DO. PATHOLOGY TEACHER: None. ANESTHESIA: Spinal MAC with local. SPECIMENS: None. DRAINS: None. COMPLICATIONS: None. BLOOD LOSS: 2 mL. PERTINENT HISTORY: This is a 67-year-old gentleman, who sustained a ground level fall on his right hip. He had immediate pain and inability to ambulate. He was transferred to [facility]. He was evaluated in the ER. Radiographs demonstrate a valgus impacted subcapital hip fracture on the right. The patient was then admitted to the hospitalist service where he was medically optimized and monitored while his rivaroxaban was held. The patient then was scheduled for surgery as indicated. All potential risks, benefits, complications, alternatives, rehab potential for incomplete relief of symptoms, need for surgery, DVT, PE, , persistent pain, swelling, scarring, weakness, neurovascular injury, wound complications, hardware failure, nonunion, malunion and bone fracture were discussed with the patient and his power of prosecuting attorney, Guerline. They decided to have the procedure as indicated. PROCEDURE: The patient was taken to the operative suite, placed supine on the operating room table. The consent was reviewed and proper operative site was identified and then anesthesia was administered appropriately. Next, the patient was placed on the fracture table. The affected right lower limb was placed to padded boot traction and the unaffected leg was placed in a well leg petit, flexed and abducted and slightly externally rotated. The well leg was then padded and protected. All other bony prominences were properly padded and protected. The post was padded in the peroneum. Next, the affected right lower limb was placed under appropriate traction using the fracture table and initial reduction was performed under live fluoroscopic assistance. Next, the affected hip was then sterilely prepped and draped in usual fashion. Next, the greater trochanter of the hip was visualized under C-arm fluoroscopy. A 10 blade scalpel incision was made along the lateral aspect of the hip inferior to the greater trochanter. This incision was then carefully deepened through subcutaneous tissue. Meticulous hemostasis was achieved with electrocautery. Next, the iliotibial band was then incised with a 10 blade scalpel and appropriate bleeders were cauterized as well. Next, using live fluoroscopic assistance 7.3 mm cannulated guide pin was placed into the central aspect of the lateral femur directed into the inferior one-third of the femoral neck and head, inferior and central both confirmed with AP and lateral projections. Next, the cannulated guide was then used to place 2 further 7.3 mm cannulated screw guide pins superior anterior and superior posterior in relation to the inferiorly placed guide pin under AP and lateral live fluoroscopic assistance. Next, the guide pins were all noted to be within 5 mm of the subchondral bone on AP and lateral projections. This was then followed by measurement of the appropriate length for planned screw implantation and then the lateral cortex was drilled, this followed by countersinking of the planned screw sites followed by implantation of the 7.3 mm cannulated screws of appropriate length. This was confirmed under live fluoroscopic assistance. Next, a hand screwdriver was used to tighten the screws to fully seat the fracture and compress it confirmed using x-ray. Next, the guide pins were removed. The wound was copiously irrigated with sterile normal saline. Final x-rays obtained in both AP and lateral projections, followed by final irrigation with sterile normal saline, closure of the fascia with interrupted #1 Vicryl sutures, closure of the dermis with buried interrupted 2-0 Vicryl. The skin was then closed using skin jerry. A sterile compressive dressing was applied. The patient was awakened and taken to recovery in stable condition. Job ID: [id number] [facility]
--- NOTE | 2022-07-17 14:59 | Hospitalist Progress Note ---
Date of Service July 17, 2022 Assessment & Plan (1) Closed right hip fracture: Plan: Due to mechanical fall. Postoperative day #3 after open reduction internal fixation. Surgical site is healing uneventfully. Appreciate orthopedic consultation and recommendations. Pain control measures as needed. Follow-up with orthopedic surgery as an outpatient in 4 to 6 weeks. Staple removal 2 weeks postop can be done at the rehab (2) UTI (urinary tract infection): Plan: Alpha strep isolated. He is now on oral amoxicillin. Blood cultures negative. Cook catheter in place and patient refuses to have it removed at this time due to fears of incontinence and painful catheter removal. Continue to encourage removal. (3) Electrolyte abnormality: Plan: hypomagnesemia and hypokalemia corrected with replacement therapy. Serial labs (4) Type 2 diabetes mellitus: Plan: on insulin at home. ADA diet. Basal Lantus therapy. Sliding scale insulin as needed. Metformin has been restarted. (5) Paroxysmal SVT (supraventricular tachycardia): Plan: SVT, hx pAfib-with recent admission for same. Sinus bradycardia noted on telemetry. Amiodarone dosage down titrated this admission. Telemetry. Xarelto was restarted postoperatively. It appears his metoprolol was recently discontinued l (6) Paroxysmal A-fib: Plan: Stable. Continue current medical management. Telemetry (7) Hypothyroidism: Plan: TSH 1.9 in 05/2022. Continue synthroid 125mcg daily (8) BPH with urinary obstruction: Plan: Cook catheter placed while immobile with hip fracture. We will remove Cook catheter when patient consents (9) Cognitive impairment: Plan: Mild. Supportive care (10) Parkinsonism: Plan: Stable. Continue Sinemet extended release 3 times daily Plan DVT prophylaxis- SCDs, Xarelto Disposition-hopeful discharge to [facility] tomorrow, july second Admission and Anticipated Discharge Date Admission Date: July 12, 2022 Subjective Alert and oriented. No new problems. He is on amoxicillin orally for the office strep isolated in the urine. Stable overall. Postoperative day #3 after open reduction internal fixation right hip fracture Review of Systems Review of Systems: Constitutional-no fever or chills ENT-no blurred vision, no double vision, no epistaxis, no sore throat Respiratory-no cough, no wheezing, no shortness of breath Cardiac-no palpitations, no chest pain, no syncope GI-no nausea, vomiting, diarrhea, melena, hematochezia -Cook catheter in place. No hematuria Musculoskeletal-postoperative right hip discomfort with motion as expected. Right hip surgical site is unremarkable Skin-no bruising, no rashes, no pruritus Neuro-no isolated weakness, no paresthesia, no weakness Psych-no depression, no anxiety Physical Exam Physical Exam: General-alert and oriented x3, no fevers, no chills HEENT-head atraumatic and normocephalic, pupils equal and reactive to light, extraocular muscles intact Neck-no lymphadenopathy or thyromegaly, trachea midline Chest-clear to auscultation percussion. No rales wheezing or rhonchi Cardiac-regular rate and rhythm, normal S1 and S2 Abdomen-normal bowel sounds, nontender, no hepatosplenomegaly Extremities-Limited range of motion right hip after open reduction, internal fixation. Surgical site is unremarkable Neuro-cranial nerves II through XII intact, parkinsonian features, strength symmetrical with generalized weakness, no focal deficits Psych-normal affect, normal mood Results & Data Results & Data Vital Signs (Past 12 Hours) Vital Signs Temp Pulse Pulse Resp BP Pulse Ox O2 Del Method 07/17/22 07:56 36.7 C 67 16 145/86 H 95 Room Air 07/17/22 07:48 51 L 07/17/22 03:16 36.6 C 62 18 142/64 H 93 Room Air Laboratory Results 07/17/22 06:52 07/17/22 06:52 PG Care Time/CCT Total # of Minutes Spent Total Time Spent with Patient: Total time spent is greater than 50% in coordination of care (as documented) at patient's floor/unit and/or counseling patient: Coding Level of Care Code 68240 SUB INP/OBS CARE 3/50MIN Diagnoses Closed right hip fracture S72.001A UTI (urinary tract infection) N39.0 Electrolyte abnormality E87.8 Type 2 diabetes mellitus E11.9 Paroxysmal SVT (supraventricular tachycardia) I47.1 Paroxysmal A-fib I48.0 Hypothyroidism E03.9 BPH with urinary obstruction N40.1; N13.8 Cognitive impairment R41.89 Parkinsonism G20
[2022-07-17] MEDS: RIVAROXABAN 20 MG TAB PO SCH (16:11)
[2022-07-17] MEDS: metFORMIN HCL 500 MG TAB PO SCH (17:10)
--- NOTE | 2022-07-17 21:34 | Orthopedic Progress Note ---
Date of Service July 17, 2022 Assessment & Plan (1) Subcapital fracture of right hip: Plan: Postop day #3 status post ORIF right hip with cannulated screws x3. Patient tolerated procedure well. Multiple medical comorbidities. Recommendations: Continue physical therapy and Occupational Therapy with partial weightbearing right lower extremity with walker and assist x1. Continue pharmaceutical DVT prophylaxis per medical team due to patient arrhythmia. Continue ice to the site daily. Nursing to change dressing QOD. Stable for discharge to [facility] with physical therapy capability as soon as available per accepting facility/insurance and if approved by medical team. Patient may have jerry removed right hip 12 to 15 days postoperatively by the nursing staff at his ECF. Continue partial weightbearing right lower extremity with a walker and assist x1 for period of 5 to 6 weeks. Ortho will sign off. Please reconsult as needed. Follow-up with Dr. Ballesteros at [facility] approximately 2 weeks from discharge date. Call for appointment . Admission and Anticipated Discharge Date Admission Date: July 12, 2022 Subjective Alert and oriented. No new problems. He was up with PT today. He is on amoxicillin orally for the strep isolated in the urine. No complaints. Postoperative day #3 after open reduction internal fixation right hip fracture Physical Exam Physical Exam: Patient is awake and alert. Affect is appropriate and responds to questions. Focused examination right hip demonstrates right hip dressing clean, dry and intact without evidence of discharge or drainage. Minimal tenderness at the operative site right hip. Range of motion B LE improving both active and passive. Negative log roll and negative heel strike test right LE. No calf tenderness. Negative Homans' sign. Pedal pulses palpable. SCDs in place. Results & Data Vital Signs (Past 12 Hours) Vital Signs Temp Pulse Pulse Resp BP Pulse Ox O2 Del Method 07/17/22 19:23 36.7 C 60 16 148/96 H 98 Room Air 07/17/22 15:38 36.4 C L 58 L 18 122/77 97 Room Air 07/17/22 15:05 57 L
[2022-07-17] MEDS: ATORVASTATIN 40 MG TAB PO SCH (21:37)
[2022-07-18] MEDS: LEVOTHYROXINE SODIUM 125 MCG TABLET PO SCH (06:09)
[2022-07-18] MEDS: AMOXICILLIN 500 MG CAP PO SCH ×2 (08:06→13:08)
[2022-07-18] MEDS: CARBIDOPA LEVODOPA PO SCH (08:06)
[2022-07-18] MEDS: [UNRECOGNIZED DRUG - OTHER] PO SCH (08:06)
[2022-07-18] MEDS: MAGNESIUM OXIDE 400 MG TAB PO SCH (08:07)
[2022-07-18] MEDS: CHOLECALCIFEROL 1,000 UNITS 25 MCG TAB PO SCH (08:07)
[2022-07-18] MEDS: AMIODARONE 200 MG TAB PO SCH (08:07)
[2022-07-18] MEDS: metFORMIN HCL 500 MG TAB PO SCH (08:07)
[2022-07-18] MEDS: SENNA 8.6 MG TAB PO SCH (08:07)
[2022-07-18] MEDS: NICOTINE 14 MG/24 HR PATCH TD SCH (08:08)
[2022-07-18] MEDS: POLYETHYLENE (MIRALAX) 17 GM PACK PO SCH (08:08)
[2022-07-18] MEDS: traMADol HCL 50 MG TABLET PO SCH ×2 (08:19→13:07)
[2022-07-18] MEDS: LANTUS PER UNIT CHARGE SQ SCH (08:30)
[2022-07-18] MEDS: INSULIN ASPART PER UNIT CHARGE SC SCH ×2 (08:30→12:07)
--- NOTE | 2022-07-18 13:59 | Discharge Summary ---
Date of Service July 18, 2022 Admission HPI Per Admitting Provider Lars is a 67-year-old male with a past medical history of A-fib with RVR, SVT, falls, parkinsonism, type II DM, BPH with LUTS, degenerative joint disease, and hypertension who was recently discharged 06/20/2022 following admission for pSVT pending ablation as an outpatient with falls. Following discharge he was seen by cardiology, was continued on amiodarone pending dose reduction from twice daily to daily. Was in sinus rhythm at that follow-up appointment 06/27, was pending follow-up electrophysiology for additional evaluation/ablation. While at his nursing facility he got up to sit on the wheelchair when he sat backwards he missed the chair and landed on his right buttock with immediate pain and discomfort and attempted to weight-bear on the right extremity. He did not have any lightheadedness, dizziness, syncope, presyncope that contributed to his fall. X-ray of the right hip and pelvis shows an impacted right femoral neck fracture. Orthopedic surgery has been consulted for operative intervention of a right hip fracture, patient has been recommended for medical admission due to comorbidities. Foster reports he was getting out of bed and going to transfer to a wheelchair and missed, fell and struck his buttock. No lightheadedness, dizziness, syncope, presyncope. Saw cardiology recently, is not planning on an ablation at this time. He does not know his medications by heart, is not sure if he is on a blood thinner or not only that he takes what medications are given to him at [place]. Last took medications last night. He reports that he has not had any chest pain, chest pressure, lightheadedness, dizziness, or palpitations recently. He is not nauseous or vomiting. He reports his right hip hurt when he tried to put weight on it earlier today, but he is in no pain laying in bed and is comfortable. He is surprised that he broke his right hip after breaking his left one a few years ago. He does not think he has had osteoporosis screening or been on bone strengthening medications in the past. He has no additional questions or concerns at bedside, is anticipating orthopedic evaluation and would like operative repair of his hip if available. He notes that he did do well with his prior left hip surgery in [place]. Medical History: Reviewed Medications: Reviewed Surgical History: Reviewed Family history: Reviewed Allergies: Reviewed Social History: Snuff, 1 pouch lasts week or so. NOne in last 4 days. Rare social EtoH use. Code Status: Full Code. Friend Guerline is caregiver and decisionmaker if he were incapacitated. MEd REc per [place]: -Med staff contacted at [facility]. They were unable to give full medication list over the phone; will fax to ER number for reconciliation but are able to confirm that he is on rivaroxaban which was last taken evening of 07/11 Principal Diagnosis Mechanical fall with right hip fracture, UTI Discharge Exam General-alert and oriented x3, no fevers, no chills HEENT-head atraumatic and normocephalic, pupils equal and reactive to light, extraocular muscles intact Neck-no lymphadenopathy or thyromegaly, trachea midline Chest-clear to auscultation percussion. No rales wheezing or rhonchi Cardiac-regular rate and rhythm, normal S1 and S2 Abdomen-normal bowel sounds, nontender, no hepatosplenomegaly Extremities-Limited range of motion right hip after open reduction, internal fixation. Surgical site is unremarkable Neuro-cranial nerves II through XII intact, parkinsonian features, strength symmetrical with generalized weakness, no focal deficits Psych-normal affect, normal mood Discharge Data Allergies Allergy/AdvReac Type Severity Reaction Status Date / Time No Known Allergies Allergy Verified 07/12/22 17:36 Consultations 07/12/22 15:19 Consult Orthopedic Surgery Routine 07/13/22 09:41 Consult Anesthesiology Routine Procedures Performed Operation Date: 07/14/22 13:00 Actual Procedures p Right Hip Cannulated Screw(Right) - Lkue Ballesteros DO Ordered Studies 07/14/22 13:00 FL hip RT 2-3V Routine Hospital Course (1) Closed right hip fracture: Due to mechanical fall. Postoperative day #4 after open reduction internal fixation. Surgical site is healing uneventfully. Appreciate orthopedic consultation and recommendations. Pain control measures as needed. Follow-up with orthopedic surgery as an outpatient in 4 to 6 weeks. Staple removal 2 w eeks postop can be done at the rehab (2) UTI (urinary tract infection): Alpha strep isolated. He is now on oral amoxicillin. Blood cultures negative. Cook catheter in place and patient refuses to have it removed at this time due to fears of incontinence and painful catheter removal. Continue to encourage removal. (3) Electrolyte abnormality: hypomagnesemia and hypokalemia corrected with replacement therapy. Serial labs (4) Type 2 diabetes mellitus: on insulin at home. ADA diet. Basal Lantus therapy. Metformin has been restarted. (5) Paroxysmal SVT (supraventricular tachycardia): SVT, hx pAfib-with recent admission for same. Sinus bradycardia noted on telemetry. Amiodarone dosage down titrated this admission. Telemetry. Xarelto was restarted postoperatively. It appears his metoprolol was recently discontinued (6) Paroxysmal A-fib: Stable. Continue current medical management. Telemetry (7) Hypothyroidism: TSH 1.9 in 05/2022. Continue synthroid 125mcg daily (8) BPH with urinary obstruction: Cook catheter placed while immobile with hip fracture. We will remove Cook catheter when patient consents (9) Cognitive impairment: Mild. Supportive care (10) Parkinsonism: Stable. Continue Sinemet extended release 3 times daily Plan DVT prophylaxis- SCDs, Xarelto Disposition-[facility]icipate [facility] to [facility], 07/18 Total Time Total Time Spent Total Time Spent (In Minutes): 40 minutes Discharge Plan Discharge Items Patient Disposition: Transfer Assisted Fac Reason For Visit: R HIP FXR Discharge Diagnosis: mechanical fall, right hip fracture, s/p ORIF right hip fracture, UTI Activity: As commented below Activity Comment: weight bearing as tolerated right leg Non-emergency contact: Primary Care Provider Call non-emergency contact if: you have any medication questions Follow-up/Referrals: Jg Valdez DO [Primary Care Provider] - Diet: Carb Consistent or DM2 and Heart Healthy Add Attending Provider Instructions: take amoxicillin for 3 more days. Right hip jerry out 14 days after surgery date ( 07/14) Addtl Tooling Manager Provider Instructions: Patient may have jerry removed right hip 12 to 15 days postoperatively by the nursing staff at his F. Continue partial weightbearing right lower extremity with a walker and assist x1 for period of 5 to 6 weeks. Follow-up with Dr. Ballesteros at [facility] approximately 2 weeks from discharge date. Call for appointment Pending Studies at Discharge: No Stand-Alone Forms: My [facility] Skilled Items Patient informed of condition?: Yes DNR: Yes Discharge Level of Care: Skilled Communicable Disease: No Discharge Prognosis: Stable Lines: None Urinary Catheter: Yes Medications and DC Order Prescriptions: New amoxicillin 500 mg Capsule 500 mg PO TID Qty: 0 0RF nicotine 7 mg/24 hr Patch 24 Hour 14 mg transdermal QAM Qty: 0 0RF polyethylene glycol 3350 [Miralax] 17 gram Powder In Packet 17 g PO DAILY Qty: 0 0RF sennosides [Senokot] 8.6 mg Tablet 17.2 mg PO QAM Qty: 0 0RF Continued (DME) Wheeled Walker Misc See Rx Instructions .Route Qty: 1 0RF Rx Instructions: As directed. with seat if possible metformin 500 mg tablet extended release 24 hr 500 mg PO BID Qty: 180 3RF (DME) Novofine Autocover 30 gauge x 1/3" needle See Rx Instructions .Route Qty: 120 11RF Rx Instructions: use for insuling injections QID (DME) Wheelchair (Manual) Device See Rx Instructions .Route Qty: 1 0RF Rx Instructions: Standard wheelchair with leg rests. [id number] exam on 04/14/22. Estimated length of need: Lifetime. (DME) lancets [ReadyLance Safety Lancets] 21 gauge misc See Rx Instructions .Route Qty: 200 3RF Rx Instructions: use to test blood sugar QID insulin glargine [Lantus Solostar U-100 Insulin] 100 unit/mL (3 mL) insulin pen 17 unit subcut QAM 90 Days Qty: 15.3 3RF Patient Comments: Per Enrique, takes 19 units in AM daily (DME) OneTouch Ultra Test Strip See Rx Instructions .Route Qty: 200 11RF Rx Instructions: Test blood sugars 4 time a day cranberry extract 500 mg capsule 500 mg PO BID Qty: 60 11RF Rx Instructions: administer with meals tramadol 50 mg tablet 50 mg PO TID Qty: 90 1RF cholecalciferol (vitamin D3) 50 mcg (2,000 unit) capsule 2,000 unit PO DAILY Qty: 90 3RF levothyroxine 125 mcg tablet 125 mcg PO DAILY Qty: 30 11RF magnesium oxide 400 mg magnesium tablet 400 mg PO DAILY Qty: 30 11RF quetiapine 25 mg tablet 12.5 mg PO HS PRN (Reason: Psychosis) Qty: 30 11RF Rx Instructions: 25 mg PO TAKE 1/2 TABLET AT BEDTIME FOR PSYCHOSIS; Xarelto 20 mg tablet 20 mg PO HS Qty: 30 11RF amiodarone 200 mg Tablet 200 mg PO BIDM Qty: 60 0RF acetaminophen [Tylenol Extra Strength] 500 mg Tablet 1,000 mg PO TID Qty: 90 0RF atorvastatin 40 mg tablet 40 mg PO QAM insulin aspart U-100 [Novolog FlexPen U-100 Insulin] 100 unit/mL (3 mL) insulin pen 4 unit subcut TIDWMEAL carbidopa-levodopa 23.75-95 mg capsule, extended release 1 cap PO Q8 Discharge Orders: Discharge Order (Routine); Ordered 07/18/22 Ordered By: Oz White Admission Data Admit Date/Time: 07/12/22 17:08 Attending Provider: Oz White Admit Provider: Jed Talbert Primary Care Provider: Jg Valdez Other Providers: [place] ; Luke Ballesteros ; Syd Gallagher Other Interventions: Discharge Summary Assessment (RN) Last Done: 07/18/22 13:00 Coding Level of Care Code 16383 INP/OBS DISCH >30 MIN Diagnoses Closed right hip fracture S72.001A UTI (urinary tract infection) N39.0 Electrolyte abnormality E87.8 Type 2 diabetes mellitus E11.9 Paroxysmal SVT (supraventricular tachycardia) I47.1 Paroxysmal A-fib I48.0 Hypothyroidism E03.9 BPH with urinary obstruction N40.1; N13.8 Cognitive impairment R41.89 Parkinsonism G20
== END 2022-07-18 14:08 | DRG 481 ==
LOC: ED 13:45 → 2W 17:08 → SUATTDRO 17:08 → 2W 18:32

== ENCOUNTER 2023-09-12 17:53 | Inpatient (IN) ==
[2023-09-12 18:40] LABS: Basophils # (auto) 0.04 K/uL (0.00-0.20); Basophils % (auto) 0.4 %; Eosinophils # (auto) 0.03 K/uL (0.00-0.50); Eosinophils % (auto) 0.3 %; Hematocrit (blood only) 44.6 % (42.0-52.0); Hemoglobin 15.1 g/dl (14.0-18.0); Immature Granulocytes # (auto) 0.07 K/uL (0.01-0.20); Immature Granulocytes % (auto) 0.8 %; Lymphocytes % (auto) 5.4 %; Mean Corpuscular Hemoglobin 30.5 pg (25.0-34.0); Mean Corpuscular Hgb Conc 33.9 g/dL (32.0-36.0); Mean Corpuscular Volume 90.1 fL (80.0-100.0); Mean Platelet Volume 9.2 fL (9.4-12.4); Monocytes # (auto) 0.76 K/uL (0.11-0.59); Monocytes % (auto) 8.2 %; Neutrophils # (auto) 7.91 K/uL (1.40-6.50); Neutrophils % (auto) 84.9 %; Platelet Count 174 K/uL (130-400); RDW Coefficient of Variation 12.7 % (11.5-14.5); RDW Standard Deviation 41.4 fL (36.4-46.3); Red Blood Count 4.95 M/uL (4.70-6.10); White Blood Count 9.31 K/ul (4.8-10.8)
[2023-09-12] MEDS: SODIUM CHLORIDE 0.9% 1,000 ML IV SCH (18:45)
--- NOTE | 2023-09-12 18:57 | Emergency Department Note ---
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 He had a fever noted outpatient by EMS. The family had not noticed fever. The patient is at assisted living. His caregiver is at bedside. She states that last night, his blood sugar was over 400, he was confused. Today, he was confused and not himself. He does have a history of UTI and this is a concern. There has been no cough reported, no vomiting or diarrhea, he has not complained of pain. PMHx/PSHx/Social Hx: See Below PHYSICAL EXAM: GENERAL: Patient is in no acute distress. Strong smell of urine noted in the room. HEENT: No acute trauma, normocephalic atraumatic, mucous membranes dry, no nasal congestion. NECK: No stridor, no adenopathy, no meningismus, trachea is midline. LUNGS: Clear to auscultation bilaterally, no wheeze, no rhonchi, breath sounds equal. HEART: 2/6 systolic murmur heard best at the right sternal border. Regular rate and rhythm. ABDOMEN: Soft, nontender, no peritonitis. EXTREMITIES: No cyanosis, full range of motion of all the joints without pain or difficulty. NEUROLOGIC: Awake but confused, no acute motor or sensory deficits, no focal weakness. SKIN: No jaundice, no diaphoresis. DIFFERENTIAL DIAGNOSIS: Sepsis or bacteremia, dehydration, pneumonia, viral illness, UTI, electrolyte imbalance, stroke, among others. EMERGENCY DEPARTMENT PROCEDURES: MEDICAL DECISION MAKING: There is no leukocytosis or concerning anemia. There was a normal platelet count. No coagulopathy. No renal failure, sugar was high at over 300. Lactic acid level was elevated, this was consistent with dehydration and infection. Magnesium is low at 1.3. No concerning liver enzyme elevation. ECG showed a normal sinus rhythm with a right bundle, no obvious ST elevation. Initial cardiac troponin value was not consistent with acute cardiac injury. Chest x- ray did not show pneumonia or CHF. Brain CT showed no acute bleed or mass effect. Urinalysis results were consistent with infection. Respiratory bio fire was negative. On exam, the patient was febrile, he was somewhat confused. He was actually hypertensive. Patient was aggressively managed. He received IV saline, 1.5 L. He received IV magnesium, IV labetalol and IV cefepime. He was given IV Unasyn. He received IV Tylenol. The patient is confused, febrile, hypertensive. He has a UTI. I do think the UTI is behind all of his issues. I hospital stay is warranted. I did speak with case management, the on-call hospitalist was consulted. A code purple was called after the patient was admitted, he appeared to be in SVT by ECG. He received 6 mg of IV adenosine with conversion to a sinus rhythm. Of note, the patient has a history of dysrhythmia. He has had A-fib and SVT in the past. The rhythm issues today were likely brought on by his infection. Prior/Outside records/notes reviewed: Today's EMS notes describing his presentation and transport to this hospital. ECG per my interpretation: Indication was possible sepsis. The ECG shows a normal sinus rhythm with a rate of 88. There is a right bundle branch block. There is no acute ST elevation, no PVCs. LVH is present. QTc is 474. Repeat ECG: Indication was tachycardia. ECG shows what appears to be in SVT with a rate of 140. There is a right bundle branch block. There is diffuse nonspecific ST change. No PVCs. The QTc is 583. Compared to the ECG from earlier, the SVT is now present. Repeat ECG: Indication was tachycardia. Continuous Cardiac Monitoring per my interpretation: An order was placed for continuous cardiac monitoring. The monitor shows a rate of 94 with normal sinus rhythm. Imaging/x-ray results per my interpretation: Chest x-ray does not show mediastinal widening, pneumonia or pneumothorax. Chronic Medical/Social conditions affecting care: Currently resides in assisted living. Care/Management discussed with: Case management, the on-call hospitalist. Level of care consideration(s): After review of the information above and other included data: --I believe the patient requires escalation of care to admission Critical Care Note: I have personally spent 41 minutes of critical care time in the direct management of this patient. This includes bedside care, interpretation of diagnostic studies, and testing, discussion with consultants, patient, and family members, and other required patient management activities. This 41 minutes is in excess of all separately billable procedures. DISPOSITION: Admission Past Med/Surg History Problem List (Updated 09/13/23 @ 00:13 by Brenton Hamilton MD) Hypomagnesemia (Acute) Fever (Acute) SVT (supraventricular tachycardia) (Acute) Hypertension (Acute) Acute UTI (Acute) Acute confusion (Acute) History of total left hip arthroplasty 12-20-21 Left Total Hip Arthroplasty-Uncemented(Left) - Jeremy Baker DO S/P ORIF (open reduction internal fixation) fracture Rip hip 06/2022, cannulated screws x3 Falls frequently Lower urinary tract symptoms Parkinsonism Paroxysmal A-fib (07/2020) Paroxysmal SVT (supraventricular tachycardia) Osteoporosis Subcapital fracture of right hip UTI (urinary tract infection) Closed right hip fracture Contusion of buttock (Acute) Dyslipidemia Hospital discharge follow-up Constipation Lumbar back pain Multiple bruises (Acute) Fecal soiling COVID-19 (Acute) Effusion, left knee Cerebrovascular disease Uncontrolled type 2 diabetes mellitus with neurologic complication, with long- term current use of insulin Prostate cancer Arthritis of both hips Left hip pain Fall (Acute) Hypomagnesemia (Acute) Hypokalemia Gait apraxia Ambulatory dysfunction Left knee DJD Cardiomyopathy (07/2020) Insomnia Seborrheic dermatitis of scalp Vitamin D deficiency History of alcoholism Left knee pain (Acute) Chews tobacco Obesity, diabetes, and hypertension syndrome Dermatitis Hypoglycemia (Acute) Medical History Tubular adenoma of colon Pulmonary nodule Leah's thyroiditis Erectile dysfunction Dilated aortic root Adult situational stress disorder Cognitive impairment Type 2 diabetes mellitus Closed head injury BPH with urinary obstruction Renal cyst Renal lesion Acute blood loss anemia Subcapital fracture of left hip Weakness Mild cognitive impairment Rash Acute respiratory failure with hypoxemia 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 Acute encephalopathy Collapse Hypoglycemia Septic prepatellar bursitis (07/2020) Sore throat Hypothyroidism History of prostate cancer Surgical History History of total left hip arthroplasty 12-20-21 Left Total Hip Arthroplasty-Uncemented(Left) - Jeremy Baker DO S/P ORIF (open reduction internal fixation) fracture Rip hip 06/2022, cannulated screws x3 History of shoulder surgery Left History of left knee surgery Family History Mother Cancer Grandmother (Paternal) Stroke Grandfather (Paternal) Stroke Other Myocardial infarction Denies family history of Ovarian cancer Prostate cancer Breast cancer Colorectal cancer Social History Smoking Status: Unknown if ever smoked Tobacco Type: Smokeless Tobacco (Dip or Chew) Age Started Using Tobacco: 16; Age Quit Using Tobacco: 26; Second Hand Exposure: No; Do You Dip or Chew Tobacco: Yes; Hx Alcohol Use: No Hx Substance Use: No Preferred Language: Thai Communication Ability: Effective Administrative Professional Required: No Beliefs That Will Affect Care: None marital status: Single Current Living Situation: [facility] Current Living Situation Comment: [facility] current occupational status: retired current occupation: [employer] How many Children do You have: 0 Feels Safe at Home: Yes Childhood Exposure to Second-Hand Smoke: Yes Diet: diabetic caffeine: Yes (iced tea ) Dental Care, Regularly: No Physical Activity Frequency: Does not Exercise Seatbelt Use: always Sunscreen Use: No Assistive Devices: Walker and Wheelchair Allergies Allergies Allergy/AdvReac Type Severity Reaction Status Date / Time No Known Allergies Allergy Verified 06/25/23 08:37 Home Meds Home Medications Medication Instructions Recorded Confirmed amiodarone 200 mg tablet 200 mg PO DAILY 09/04/22 09/12/23 docusate sodium 100 mg capsule 100 mg PO DAILY 11/17/22 09/12/23 atorvastatin 40 mg tablet 40 mg PO HS 02/16/23 09/12/23 sennosides 8.6 mg-docusate sodium 1 tab-cap PO DAILY 02/16/23 09/12/23 50 mg capsule (Senna Plus) cranberry extract 500 mg capsule 500 mg PO BIDM 09/12/23 09/12/23 docusate sodium 100 mg capsule 100 mg PO BID PRN Constipation 09/12/23 09/12/23 levothyroxine 125 mcg tablet 125 mcg PO DAILYBB 09/12/23 09/12/23 lisinopril 30 mg tablet 30 mg PO QAM 09/12/23 09/12/23 loperamide 2 mg capsule 2 mg PO Q6H PRN Diarrhea 09/12/23 09/12/23 metformin 850 mg tablet 850 mg PO BIDM 09/12/23 09/12/23 Previous Rx's Medication Instructions Recorded Wheeled Walker #1 ea 03/21/21 cholecalciferol (vitamin D3) 50 2,000 unit PO DAILY #90 caps 01/23/22 mcg (2,000 unit) capsule magnesium oxide 400 mg PO DAILY #30 tabs 01/23/22 rivaroxaban 20 mg tablet (Xarelto) 20 mg PO HS #30 tabs 01/23/22 acetaminophen 500 mg tablet 1,000 mg (2 x 500 mg) PO TID #90 06/20/22 (Tylenol Extra Strength) tabs blood sugar diagnostic (OneTouch #200 ea 11/02/22 Ultra Test strips) pen needle, diabetic, safety 30 #200 ea 12/01/22 gauge x 1/3" (Novofine Autocover) insulin glargine 100 unit/mL (3 25 unit (0.25 mL) subcut QAM #30 mL 12/08/22 mL) subcutaneous pen (Lantus Solostar U-100 Insulin) Wheelchair (Manual) (Manual #1 ea 01/02/23 Wheelchair) tramadol 50 mg tablet 25 mg (1/2 x 50 mg) PO TID PRN 02/19/23 pain #30 tabs Wheelchair (Manual) #1 ea 02/21/23 carbidopa ER 36.25 mg-levodopa 145 1 cap PO QID 30 days #120 caps 07/02/23 mg capsule,extended release (Rytary) insulin aspart U-100 100 unit/mL 6 unit (0.06 mL) subcut TIDWMEAL 07/09/23 (3 mL) subcutaneous pen (Novolog #30 mL FlexPen U-100 Insulin aspart) Results & Data (ED) Vital Signs Vital Signs - 24 hr 09/12/23 17:42 09/12/23 17:43 09/12/23 17:59 Temperature 38.1 C H Temperature Source Oral Pulse Rate 87 94 H Pulse Rate [Apical] Respiratory Rate 20 Blood Pressure 183/110 H Blood Pressure [Right Arm] Blood Pressure Mean 134 Blood Pressure Mean [Right Arm] Pulse Oximetry 94 Oxygen Delivery Method Room Air Sepsis Recent Fever Within 48 Hours Yes Sepsis New/Unexplained Change in Mental Status Yes Sepsis Action Taken by Nursing Physician Notified 09/12/23 19:53 09/12/23 20:14 09/12/23 20:24 Temperature 38.0 C H Temperature Source Oral Pulse Rate 99 H 93 H Pulse Rate [Apical] 93 H Respiratory Rate 21 Blood Pressure 188/126 H 188/98 H Blood Pressure [Right Arm] 188/98 H Blood Pressure Mean Blood Pressure Mean [Right Arm] 128 Pulse Oximetry 94 Oxygen Delivery Method Room Air Sepsis Recent Fever Within 48 Hours Sepsis New/Unexplained Change in Mental Status Sepsis Action Taken by [facility] Medications Current Medication List: was personally reviewed by me Laboratory Data Attestation: I reviewed the patient's lab results. 09/12/23 18:08 09/12/23 18:08 Lab Results 09/12/23 09/12/23 09/12/23 Range/Units 18:08 18:37 20:17 WBC 9.31 (4.8-10.8) K/ul RBC 4.95 (4.70-6.10) M/uL Hgb 15.1 (14.0-18.0) g/dl Hct 44.6 (42.0-52.0) % MCV 90.1 (80.0-100.0) fL MCH 30.5 (25.0-34.0) pg MCHC 33.9 (32.0-36.0) g/dL RDW Std Deviation 41.4 (36.4-46.3) fL RDW Coeff of Robyn 12.7 (11.5-14.5) % Plt Count 174 (130-400) K/uL MPV 9.2 L (9.4-12.4) fL Immature Gran % (Auto) 0.8 % Neut % (Auto) 84.9 % Lymph % (Auto) 5.4 % [place] % (Auto) 8.2 % Eos % (Auto) 0.3 % Baso % (Auto) 0.4 % Neut # (Auto) 7.91 H (1.40-6.50) K/uL Lymph # (Auto) 0.50 L (1.20-3.40) K/uL [place] # (Auto) 0.76 H (0.11-0.59) K/uL Eos # (Auto) 0.03 (0.00-0.50) K/uL Baso # (Auto) 0.04 (0.00-0.20) K/uL Immature Gran # (Auto) 0.07 (0.01-0.20) K/uL PT 11.6 (9.0-12.0) Seconds INR 1.1 (0.9-1.1) APTT 30 (21-31) Seconds PTT Ratio 1.1 Sodium 137 (136-145) mmol/L Potassium 3.7 (3.5-5.1) mmol/L Chloride 99 (98-107) mmol/L Carbon Dioxide 30 (21-32) mmol/L Anion Gap 8 (3-11) BUN 23 (6-23) mg/dl Creatinine 0.95 (0.6-1.4) mg/dl Est Cr Clr Drug Dosing 91.7 ml/min Est GFR ( Amer) 94.9 ml/min Est GFR (Non-Af Amer) 81.9 ml/min BUN/Creatinine Ratio 24.2 H (10-20) Glucose 338 H* (70-99(Fasting)) mg/dl Lactate 2.4 H* (0.4-2.0) mmol/L Calcium 9.7 (8.6-10.3) mg/dl Magnesium 1.3 L (1.7-2.4) mg/dl Total Bilirubin 1.0 (0.2-1.0) mg/dl Direct Bilirubin 0.2 (0-0.2) mg/dl AST 10 L (13-39) U/L ALT 7 (7-52) U/L Alkaline Phosphatase 85 (34-104) U/L Troponin I High Sens 10.4 (0-20) pg/ml Total Protein 7.5 (6.0-8.3) gm/dl Albumin 4.1 (3.4-5.0) gm/dl Procalcitonin 0.55 H (0-0.5) ng/ml Urine Color Yellow Urine Appearance Cloudy A (Clear) Urine pH 5.5 (4.5-7.5) Ur Specific [place] 1.016 (1.000-1.030) Urine Protein 3+ H (Negative) Urine Glucose (UA) 3+ H (Negative) Urine Ketones 1+ H (Negative) Urine Blood 2+ H (Negative) Urine Nitrite Positive A (Negative) Urine Bilirubin Negative (Negative) Urine Urobilinogen Negative (Negative) Ur Leukocyte Esterase 1+ H (Negative) Urine WBC (Auto) >50 H (0-5) /hpf Urine RBC (Auto) 11-20 H (0-2) /hpf U Hyaline Cast (Auto) 3-5 H (0-2) /lpf U Epithel Cells (Auto) 0-2 (0-2) /hpf Urine Bacteria (Auto) 2+ H (None Seen) Adenovirus (PCR) Not Detected (NotDetected) B. pertussis DNA (PCR) Not Detected (NotDetected) B.parapertussis DNA PCR Not Detected (NotDetected) C. pneumoniae DNA (PCR) Not Detected (NotDetected) Coronavirus OC43 (PCR) Not Detected (NotDetected) Coronavirus HKU1 (PCR) Not Detected (NotDetected) Coronavirus 229E (PCR) Not Detected (NotDetected) SARS-CoV-2 (PCR) Not Detected (NotDetected) Coronavirus NL63 (PCR) Not Detected (NotDetected) Human Metapneumovir PCR Not Detected (NotDetected) Influenza Type A (PCR) Not Detected (NotDetected) Influenza Type B (PCR) Not Detected (NotDetected) M. pneumoniae (PCR) Not Detected (NotDetected) Parainfluenza 1 (PCR) Not Detected (NotDetected) Parainfluenza 2 (PCR) Not Detected (NotDetected) Parainfluenza 3 (PCR) Not Detected (NotDetected) Parainfluenza 4 (PCR) Not Detected (NotDetected) RSV (PCR) Not Detected (NotDetected) Entero/Rhino (PCR) Not Detected (NotDetected) 09/12/23 Range/Units 20:43 WBC (4.8-10.8) K/ul RBC (4.70-6.10) M/uL Hgb (14.0-18.0) g/dl Hct (42.0-52.0) % MCV (80.0-100.0) fL MCH (25.0-34.0) pg MCHC (32.0-36.0) g/dL RDW Std Deviation (36.4-46.3) fL RDW Coeff of Robyn (11.5-14.5) % Plt Count (130-400) K/uL MPV (9.4-12.4) fL Immature Gran % (Auto) % Neut % (Auto) % Lymph % (Auto) % [place] % (Auto) % Eos % (Auto) % Baso % (Auto) % Neut # (Auto) (1.40-6.50) K/uL Lymph # (Auto) (1.20-3.40) K/uL [place] # (Auto) (0.11-0.59) K/uL Eos # (Auto) (0.00-0.50) K/uL Baso # (Auto) (0.00-0.20) K/uL Immature Gran # (Auto) (0.01-0.20) K/uL PT (9.0-12.0) Seconds INR (0.9-1.1) APTT (21-31) Seconds PTT Ratio Sodium (136-145) mmol/L Potassium (3.5-5.1) mmol/L Chloride (98-107) mmol/L Carbon Dioxide (21-32) mmol/L Anion Gap (3-11) BUN (6-23) mg/dl Creatinine (0.6-1.4) mg/dl Est Cr Clr Drug Dosing ml/min Est GFR ( Amer) ml/min Est GFR (Non-Af Amer) ml/min BUN/Creatinine Ratio (10-20) Glucose (70-99(Fasting)) mg/dl Lactate 3.2 H* (0.4-2.0) mmol/L Calcium (8.6-10.3) mg/dl Magnesium (1.7-2.4) mg/dl Total Bilirubin (0.2-1.0) mg/dl Direct Bilirubin (0-0.2) mg/dl AST (13-39) U/L ALT (7-52) U/L Alkaline Phosphatase (34-104) U/L Troponin I High Sens (0-20) pg/ml Total Protein (6.0-8.3) gm/dl Albumin (3.4-5.0) gm/dl Procalcitonin (0-0.5) ng/ml Urine Color Urine Appearance (Clear) Urine pH (4.5-7.5) Ur Specific [place] (1.000-1.030) Urine Protein (Negative) Urine Glucose (UA) (Negative) Urine Ketones (Negative) Urine Blood (Negative) Urine Nitrite (Negative) Urine Bilirubin (Negative) Urine Urobilinogen (Negative) Ur Leukocyte Esterase (Negative) Urine WBC (Auto) (0-5) /hpf Urine RBC (Auto) (0-2) /hpf U Hyaline Cast (Auto) (0-2) /lpf U Epithel Cells (Auto) (0-2) /hpf Urine Bacteria (Auto) (None Seen) Adenovirus (PCR) (NotDetected) B. pertussis DNA (PCR) (NotDetected) B.parapertussis DNA PCR (NotDetected) C. pneumoniae DNA (PCR) (NotDetected) Coronavirus OC43 (PCR) (NotDetected) Coronavirus HKU1 (PCR) (NotDetected) Coronavirus 229E (PCR) (NotDetected) SARS-CoV-2 (PCR) (NotDetected) Coronavirus NL63 (PCR) (NotDetected) Human Metapneumovir PCR (NotDetected) Influenza Type A (PCR) (NotDetected) Influenza Type B (PCR) (NotDetected) M. pneumoniae (PCR) (NotDetected) Parainfluenza 1 (PCR) (NotDetected) Parainfluenza 2 (PCR) (NotDetected) Parainfluenza 3 (PCR) (NotDetected) Parainfluenza 4 (PCR) (NotDetected) RSV (PCR) (NotDetected) Entero/Rhino (PCR) (NotDetected) Administered Medications Vancomycin HCl 2,000 mg/ (Sodium Chloride) 540 mls @ 200 mls/hr IV NOW ONE; Protocol Stop: 09/13/23 00:11 Last Admin: 09/12/23 21:38 Dose: 200 mls/hr Documented By: LORENZO Magnesium Sulfate/Dextrose (Magnesium Sulfate / D5w) 1 gm in 100 mls @ 50 mls/hr IV Q2H JOSELITO Stop: 09/13/23 02:14 Last Infusion: 09/12/23 23:40 Dose: Infused Documented By: Admin: 09/12/23 22:15 Dose: 400 mls/hr Documented By: LORENZO Discontinued Medications Adenosine (Adenosine Iv Soln 3 Mg/Ml 2 Ml Vial) 6 mg IV NOW STA Stop: 09/12/23 22:08 Last Admin: 09/12/23 22:10 Dose: 6 mg Documented By: LORENZO Adenosine (Adenosine Iv Soln 3 Mg/Ml 2 Ml Vial) Confirm Administered Dose 6 mg IV .STK-MED ONE Stop: 09/12/23 22:09 Last Admin: 09/12/23 22:37 Dose: Not Given Documented By: LORENZO Amiodarone HCl (Amiodarone 200 Mg Tab) 200 mg PO NOW STA Stop: 09/12/23 22:13 Last Admin: 09/12/23 22:58 Dose: Not Given Documented By: LORENZO Sodium Chloride (Nss) 1,000 mls @ 999 mls/hr IV .Q1H1M JOSELITO Stop: 09/12/23 19:30 Last Infusion: 09/12/23 20:24 Dose: Infused Documented By: Admin: 09/12/23 18:45 Dose: 999 mls/hr Documented By: MELVI Cefepime HCl (Maxipime) 2,000 mg in 20 mls @ 5 mls/min IV NOW STA; Protocol Stop: 09/12/23 18:23 Last Admin: 09/12/23 19:36 Dose: 5 mls/min Documented By: LORENZO Acetaminophen (Ofirmev) 1,000 mg in 100 mls @ 400 mls/hr IV NOW STA Stop: 09/12/23 18:36 Last Infusion: 09/12/23 19:54 Dose: Infused Documented By: Admin: 09/12/23 19:37 Dose: 400 mls/hr Documented By: LORENZO Magnesium Sulfate/Dextrose (Magnesium Sulfate / D5w) 1 gm in 100 mls @ 100 mls/hr IV Q1H JOSELITO Stop: 09/12/23 21:06 Last Infusion: 09/12/23 23:38 Dose: Infused Documented By: Admin: 09/12/23 20:48 Dose: 100 mls/hr Documented By: Infusion: 09/12/23 20:47 Dose: Infused Documented By: Admin: 09/12/23 19:37 Dose: 100 mls/hr Documented By: LORENZO Sodium Chloride (Nss) 500 mls @ 999 mls/hr IV .Q31M ONE Stop: 09/12/23 21:27 Last Infusion: 09/12/23 21:39 Dose: Infused Documented By: Admin: 09/12/23 21:09 Dose: 999 mls/hr Documented By: LORENZO Ampicillin Sodium/Sulbactam Sodium 3,000 mg/ Sodium Chloride 100 mls @ 200 mls/hr IV NOW STA Stop: 09/12/23 21:27 Last Admin: 09/12/23 21:10 Dose: Not Given Documented By: LORENZO Piperacillin Sod/Tazobactam (Sod 4.5 gm/ Dextrose) 100 mls @ 200 mls/hr IV ONE ONE; Protocol Stop: 09/12/23 21:59 Last Admin: 09/12/23 21:39 Dose: 200 mls/hr Documented By: LORENZO Magnesium Sulfate/Dextrose (Magnesium Sulfate / D5w) 1 gm in 100 mls @ 50 mls/hr IV ONE ONE Stop: 09/13/23 01:28 Last Admin: 09/12/23 23:48 Dose: Not Given Documented By: NAYELI Insulin Aspart (Insulin Aspart Per Unit Charge) 5 units SC NOW STA Stop: 09/12/23 21:25 Last Admin: 09/12/23 23:38 Dose: Not Given Documented By: NAYELI Co-signed By: TONY Labetalol HCl (Labetalol Hcl Iv 5 Mg/Ml 20ml) 10 mg IV NOW STA Stop: 09/12/23 19:43 Last Admin: 09/12/23 19:53 Dose: 10 mg Documented By: LORENZO Co-signed By: CORY Metoprolol Tartrate (Metoprolol Tartrate 1 Mg/Ml Vial) Confirm Administered Dose 5 mg IV .STK-MED ONE Stop: 09/12/23 22:13 Last Admin: 09/12/23 22:37 Dose: Not Given Documented By: LORENZO Metoprolol Tartrate (Metoprolol Tartrate 1 Mg/Ml Vial) 5 mg IV NOW STA Stop: 09/12/23 22:17 Last Admin: 09/12/23 22:14 Dose: 5 mg Documented By: LORENZO Metoprolol Tartrate (Metoprolol Tartrate 1 Mg/Ml Vial) Confirm Administered Dose 5 mg IV .STK-MED ONE Stop: 09/12/23 22:18 Last Admin: 09/12/23 22:40 Dose: Not Given Documented By: LORENZO Metoprolol Tartrate (Metoprolol Tartrate 1 Mg/Ml Vial) 5 mg IV NOW STA Stop: 09/12/23 22:42 Last Admin: 09/12/23 22:19 Dose: 5 mg Documented By: LORENZO Imaging Data Radiologist's Impression: Chest X-Ray 09/12/23 18:20 SINGLE VIEW CHEST CLINICAL HISTORY: Sepsis FINDINGS: An AP, portable, upright chest radiograph is compared to study dated 07/29/2023 and correlated with chest CT dated 06/11/2022. The patient's head partially obscures the apices. The heart is enlarged. There is pulmonary vascular congestion. Mild scarring/atelectasis is noted at the lung bases. No airspace consolidation or large pleural effusion is identified. No pneumothorax is seen. The skeletal structures are osteopenic. The bony thorax is grossly intact. Arthritic change is seen in the shoulders. IMPRESSION: Cardiomegaly with pulmonary vascular congestion. ACT 112: Negative or not required by law. Electronically signed by: Brenotn Cid M.D. 09/12/2023 7:[address] 09/12/23 18:22 Exam(s): CT HEAD Without Contrast EXAM: CT Head Without Intravenous Contrast CLINICAL HISTORY: Reason for exam: altered. TECHNIQUE: Axial computed tomography images of the head/brain without intravenous contrast. CTDI is 36.18 mGy and DLP is 624.41 mGy-cm. Automated exposure control was utilized for the study. A dose lowering technique was utilized adhering to the principles of ALARA. COMPARISON: CT head on 07/29/2023 FINDINGS: Brain: No acute infarct or hemorrhage identified. No extra-axial fluid collection. No mass effect or midline shift. Scattered areas of hypoattenuation in the supratentorial white matter likely represent chronic small vessel ischemic changes. Ventricles and sulci: Prominence of the ventricles and sulci is likely secondary to cerebral volume loss. Bones: Normal. No bony lesion or acute fracture. Subcutaneous tissues: Normal. Sinuses: Normal. No air-fluid levels or mucosal thickening. Mastoid air cells: Normal. Orbits: Grossly unremarkable. Other: Atherosclerotic calcifications in the intracranial vasculature. IMPRESSION: 1. No acute intracranial abnormality. Further evaluation could be performed with MRI if clinically indicated. 2. Chronic small vessel ischemic changes and cerebral volume loss. Electronically signed by: Rich Jeffrey M.D. 09/12/23 20:19 PM Discharge Plan Visit Data Chief Complaint: Altered Mental Status Stated Complaint: AMS ED Provider: Brenton Hamilton Discharge Problem: Acute confusion, Acute UTI, Hypertension, SVT (supraventricular tachycardia), Fever, Hypomagnesemia Patient Disposition: Admitted As Inpatient Condition: Serious Discharge Problem: Hypertension Qualifiers: Hypertension type: unspecified Qualified Code(s): I10 - Essential (primary) hypertension Fever Qualifiers: Fever type: unspecified Qualified Code(s): R50.9 - Fever, unspecified
--- NOTE | 2023-09-12 19:03 | XRay Report ---
SINGLE VIEW CHEST CLINICAL HISTORY: Sepsis FINDINGS: An AP, portable, upright chest radiograph is compared to study dated 07/29/2023 and correlat ed with chest CT dated 06/11/2022. The patient's head partially obscures the apices. The heart is enla rged. There is pulmonary vascular congestion. Mild scarring/atelectasis is noted at the lung bases. N o airspace consolidation or large pleural effusion is identified. No pneumothorax is seen. The skelet al structures are osteopenic. The bony thorax is grossly intact. Arthritic change is seen in the shou lders. IMPRESSION: Cardiomegaly with pulmonary vascular congestion. ACT 112: Negative or not required by law. Electronically signed by: Brenton Cid M.D. 09/12/2023 7:01 PM
[2023-09-12 19:05] LABS: Albumin Level 4.1 gm/dl (3.4-5.0); BUN Creatinine Ratio 24.2 (10-20); Bilirubin Direct 0.2 mg/dl (0-0.2); Calcium 9.7 mg/dl (8.6-10.3); Creatinine Clr Calc Pharmacy 91.7 ml/min; Est GFR (African American) 94.9 ml/min; Est GFR (Non-African American) 81.9 ml/min; Magnesium 1.3 mg/dl (1.7-2.4); Potassium 3.7 mmol/L (3.5-5.1); Total Protein 7.5 gm/dl (6.0-8.3); Troponin I High Sensitivity 10.4 pg/ml (0-20)
[2023-09-12 19:07] LABS: INR 1.1 (0.9-1.1); Partial Thromboplastin Ratio 1.1; Partial Thromboplastin Time 30 Seconds (21-31); Prothrombin Time 11.6 Seconds (9.0-12.0)
[2023-09-12] MEDS: CEFEPIME 2,000 MG/20 ML VIAL IV STA (19:36)
[2023-09-12] MEDS: MAGNESIUM SULFATE / D5W 1 GM/100 ML BAG IV SCH ×2 (19:37→22:15)
[2023-09-12] MEDS: ACETAMINOPHEN 1,000 MG/100 ML VIAL IV STA (19:37)
[2023-09-12 19:51] LABS: Adenovirus PCR Not Detected (NotDetected); Bordetella parapertussis PCR Not Detected (NotDetected); Bordetella pertussis PCR Not Detected (NotDetected); Chlamydia pneumoniae PCR Not Detected (NotDetected); Coronavirus 229E PCR Not Detected (NotDetected); Coronavirus CoV-2 (COVID19)PCR Not Detected (NotDetected); Coronavirus HKU1 PCR Not Detected (NotDetected); Coronavirus NL63 PCR Not Detected (NotDetected); Coronavirus OC43PCR Not Detected (NotDetected); Human Metapneumovirus PCR Not Detected (NotDetected); Influenza A PCR Not Detected (NotDetected); Influenza B PCR Not Detected (NotDetected); Mycoplasma pneumoniae PCR Not Detected (NotDetected); Parainfluenza Virus 1 PCR Not Detected (NotDetected); Parainfluenza Virus 2 PCR Not Detected (NotDetected); Parainfluenza Virus 3 PCR Not Detected (NotDetected); Parainfluenza Virus 4 PCR Not Detected (NotDetected); Respiratory Syncytial VirusPCR Not Detected (NotDetected); Rhinovirus/Enterovirus PCR Not Detected (NotDetected)
[2023-09-12] MEDS: LABETALOL HCL IV 5 MG/ML 20ML IV STA (19:53)
--- NOTE | 2023-09-12 20:20 | CT Scan Report ---
Exam(s): CT HEAD Without Contrast EXAM: CT Head Without Intravenous Contrast CLINICAL HISTORY: Reason for exam: altered. TECHNIQUE: Axial computed tomography images of the head/brain without intravenous contrast. CTDI is 36.18 mGy and DLP is 624.41 mGy-cm. Automated exposure control was utilized for the study. A dose lowering technique was utilized adhering to the principles of ALARA. COMPARISON: CT head on 07/29/2023 FINDINGS: Brain: No acute infarct or hemorrhage identified. No extra-axial fluid collection. No mass effect or midline shift. Scattered areas of hypoattenuation in the supratentorial white matter likely represent chronic small vessel ischemic changes. Ventricles and sulci: Prominence of the ventricles and sulci is likely secondary to cerebral volume loss. Bones: Normal. No bony lesion or acute fracture. Subcutaneous tissues: Normal. Sinuses: Normal. No air-fluid levels or mucosal thickening. Mastoid air cells: Normal. Orbits: Grossly unremarkable. Other: Atherosclerotic calcifications in the intracranial vasculature. IMPRESSION: 1. No acute intracranial abnormality. Further evaluation could be performed with MRI if clinically indicated. 2. Chronic small vessel ischemic changes and cerebral volume loss. Electronically signed by: Rich Jeffrey M.D. 09/12/23 20:19 PM
[2023-09-12 20:36] LABS: Appearance Urine Cloudy (Clear); Bacteria Urine Automated 2+ (None Seen); Bilirubin Urine Negative (Negative); Blood Urine 2+ (Negative); Color Urine Yellow; Epithelial Cell Urine Auto 0-2 /hpf (0-2); Glucose Urine UA 3+ (Negative); Ketones Urine 1+ (Negative); Leukocyte Esterase Urine 1+ (Negative); Nitrite Urine Positive (Negative); Protein Urine 3+ (Negative); Specific Gravity Urine 1.016 (1.000-1.030); Urobilinogen Urine Negative (Negative); WBC Urine Automated >50 /hpf (0-5); pH Urine 5.5 (4.5-7.5)
[2023-09-12] MEDS ORDERED: VANCOMYCIN CONSULT ACTIVE PRN (21:05)
[2023-09-12] MEDS: SODIUM CHLORIDE 0.9% 500 ML IV ONE (21:09)
[2023-09-12] MEDS: AMPICILLIN/SULBACTAM SOD 3,000 MG in SODIUM CHLOR 0.9% MINI-B 100 ML IV STA (21:10)
[2023-09-12] MEDS: VANCOMYCIN HCL 2,000 MG in SODIUM CHLORIDE 0.9% 500 ML IV ONE (21:38)
[2023-09-12] MEDS: PIPERACILLIN/TAZOBACTAM 4.5 GM in DEXTROSE 5% MINI-B 100 ML IV ONE (21:39)
--- NOTE | 2023-09-12 21:50 | Pharmacy Report ---
Pharmacy PK ABX Note - Date of Service September 12, 2023 - Assessment and Plan Assessment 68 year old M receiving Vancomycin and Zosyn for empiric treatment of UTI. * Day #1 of antimicrobial therapy. * Febrile at 38.1oC. No leukocytosis. SCr 0.95 (appears to be slightly above baseline). Lactate elevated. Procalcitonin 0.55. * Blood and urine cultures pending. Plan Vancomycin * Loading dose: 2000 mg IV x 1 * Maintenance dose: 1250 mg IV every 12 hours * Regimen is predicted to achieve target AUC/GEORGE of 400-600 mg/L.hr * No level will be ordered unless therapy extends beyond 48 hours Zosyn * 4.5 g IV every 8 hours Pharmacy will continue to follow and will adjust dose/frequency as necessary. Thank you. Pharmacy has transitioned to AUC monitoring for vancomycin. AUC/GEORGE is the preferred PK/PD target and is associated with decreased risk of nephrotoxicity compared to traditional trough targets.
[2023-09-12] MEDS: ADENOSINE IV SOLN 3 MG/ML 2 ML VIAL IV STA (22:10)
[2023-09-12] MEDS: METOPROLOL TARTRATE 1 MG/ML VIAL IV STA ×2 (22:14→22:19)
[2023-09-12] MEDS: ADENOSINE IV SOLN 3 MG/ML 2 ML VIAL IV ONE (22:37)
[2023-09-12] MEDS: METOPROLOL TARTRATE 1 MG/ML VIAL IV ONE ×2 (22:37→22:40)
[2023-09-12] MEDS: AMIODARONE 200 MG TAB PO STA (22:58)
[2023-09-12] MEDS ORDERED: traMADol HCL 50 MG TABLET PO PRN (23:29)
[2023-09-12] MEDS ORDERED: CARBOHYDRATES FOR HYPOGLYCEMIA PO PRN (23:29)
[2023-09-12] MEDS ORDERED: DEXTROSE 50% 50 ML SYRINGE IV PRN (23:29)
[2023-09-12] MEDS ORDERED: GLUCOSE 40% GEL 15 GM TUBE PO PRN (23:29)
[2023-09-12] MEDS ORDERED: NITROGLYCERIN SL 0.4 MG/TAB TAB SL PRN (23:29)
[2023-09-12] MEDS ORDERED: DOCUSATE SODIUM 100 MG CAP PO PRN (23:29)
[2023-09-12] MEDS ORDERED: GLUCOSE 10 TAB/TUBE PO PRN (23:29)
[2023-09-12] MEDS ORDERED: GLUCAGON FOR INJ 1 MG VIAL SQ PRN (23:29)
[2023-09-12] MEDS ORDERED: ACETAMINOPHEN 1,000 MG/100 ML VIAL IV PRN (23:29)
[2023-09-12] MEDS ORDERED: METOPROLOL TARTRATE 1 MG/ML VIAL IV PRN (23:29)
[2023-09-12] MEDS: INSULIN ASPART PER UNIT CHARGE SC STA (23:38)
[2023-09-12] MEDS: MAGNESIUM SULFATE / D5W 1 GM/100 ML BAG IV ONE (23:48)
[2023-09-13 00:03] LABS: Troponin I High Sensitivity 44.3 pg/ml (0-20)
[2023-09-13] MEDS: INSULIN ASPART PER UNIT CHARGE SC SCH (00:04)
[2023-09-13] MEDS: SODIUM CHLORIDE 0.9% 1,000 ML IV SCH (00:05)
[2023-09-13] MEDS: RIVAROXABAN 20 MG TAB PO SCH (00:06)
[2023-09-13] MEDS: [UNRECOGNIZED DRUG - OTHER] SCH (00:09)
[2023-09-13] MEDS: NICOTINE 21 MG/24 HR TDSY TD SCH (00:09)
[2023-09-13 00:10] LABS: Thyroid Stimulating Hormone 1.845 uIu/ml (0.300-4.500)
[2023-09-13] MEDS ORDERED: Nursing to Pharmacy Communication SCH (00:30)
--- NOTE | 2023-09-13 03:31 | History & Physical Report ---
Date of Service September 12, 2023 Assessment & Plan (1) Sepsis: Plan: 68-year-old male who is from [facility] with past medical history significant for ambulatory dysfunction on wheelchair because of his hips but can ambulate short distance with assistance, BPH, diabetes, parkinsonism, paroxysmal atrial fibrillation, paroxysmal SVT, history of prostate cancer, hyperlipidemia, hypertension,history of UTI, hypothyroidism, history of frequent falls, chews tobacco, mild cognitive impairment, dilated aortic root presents with confusion and found to have UTI and he had an episode of SVT in the ER. Patient's caregiver who is a friend for a long time and takes care of the patient as his family not in the town is in the room and helped with H&P. Per caregiver she was called last night as patient was getting confused and she has advised to check his blood sugar and it was running high . Again today afternoon patient became more confused and lethargic and the reason he was brought in here. Caregiver says since he got fluids he is much more awake. Patient can tell his name. Can tell his date of . Could not tell current date and place. But answers simple questions like states no headache, Denies any blurred visions. Denies sore throat. Denies cough. Denies chest pain. Denies shortness of breath. Denies nausea. Denies abdominal pain. As per caregiver patient can eat regular food. Seems no recent diarrhea. UA came back positive. Lactic is elevated at 3.2. In the ER he had an episode of tachycardic heart rate 140s 150s. Blood pressure was okay. olga alanis was called. IV adenosine 6 mg was given which converted to sinus rhythm but patient went back into SVT. After couple of doses of IV Lopressor 5mg patient came back into sinus rhythm. Blood pressure has been stable. sepsis meets sepsis criteria with tachycardia, fever, elevated lactic acid urine is positive lactic acid 3.2 IV fluids, IV Vanco and IV Zosyn will follow the cultures currently hemodynamically stable follow repeat lactic acid and labs close monitoring telemetry confusion mostly metabolic encephalopathy from sepsis CT head is okay we will monitor SVT history of paroxysmal SVT received iv adenosine 6mg. resolved after couple of doses of IV Lopressor placed on IV Lopressor as needed continue home p.o. amiodarone will follow serial cardiac enzymes and echo telemetry cardiac consult in a.m. for further recommendations mild elevation troponin mostly demand ischemia we will follow serial cardiac enzymes and echo history of paroxysmal atrial fibrillation on amiodarone and Xarelto close monitor parkinsonism continue home carbidopa/levodopa ambulatory dysfunction mostly wheelchair can ambulate short distance with assistance of walker PT OT when stable diabetes hyperglycemia continue home long-acting insulin sliding scale close monitor follow HbA1c levels BPH monitor for urinary retention history of prostate cancer follows with urology hyperlipidemia on statin hypothyroidism on Synthyroid TSH is okay hypertension on lisinopril will monitor hypomagnesia replaced follow repeat labs. DVT prophylaxis on Xarelto disposition telemetry full code. History of Present Illness Chief Complaint: Confusion, UTI, SVT Primary Care Provider: Filippo Ballesteros DO 68-year-old male who is from [facility] with past medical history significant for ambulatory dysfunction on wheelchair because of his hips but can ambulate short distance with assistance, BPH, diabetes, parkinsonism, paroxysmal atrial fibrillation, paroxysmal SVT, history of prostate cancer, hyperlipidemia, hypertension,history of UTI, hypothyroidism, history of frequent falls, chews tobacco, mild cognitive impairment, dilated aortic root presents with confusion and found to have UTI and he had an episode of SVT in the ER. Patient's caregiver who is a friend for a long time and takes care of the patient as his family not in the town is in the room and helped with H&P. Per caregiver she was called last night as patient was getting confused and she has advised to check his blood sugar and it was running high . Again today afternoon patient became more confused and lethargic and the reason he was brought in here. Caregiver says since he got fluids he is much more awake. Patient can tell his name. Can tell his date of . Could not tell current date and place. But answers simple questions like states no headache, Denies any blurred visions. Denies sore throat. Denies cough. Denies chest pain. Denies shortness of breath. Denies nausea. Denies abdominal pain. As per caregiver patient can eat regular food. Seems no recent diarrhea. UA came back positive. Lactic is elevated at 3.2. In the ER he had an episode of tachycardic heart rate 140s 150s. Blood pressure was okay. olga alanis was called. IV adenosine 6 mg was given which converted to sinus rhythm but patient went back into SVT. After couple of doses of IV Lopressor 5mg patient came back into sinus rhythm. Blood pressure has been stable. Past medical history. As mentioned above Past surgical history. left knee surgery, shoulder surgery, total left hip arthroplasty. family history. Mother had cancer. Paternal grandfather had stroke. Social history. She is tobacco 1 can. No alcohol use. No drug use. Allergies Allergy/AdvReac Type Severity Reaction Status Date / Time No Known Allergies Allergy Verified 06/25/23 08:37 Home Medications Medication Instructions Recorded Confirmed Type Wheeled Walker #1 ea 03/21/21 06/25/23 Rx cholecalciferol (vitamin D3) 50 2,000 unit PO DAILY #90 caps 01/23/22 09/12/23 Rx mcg (2,000 unit) capsule magnesium oxide 400 mg PO DAILY #30 tabs 01/23/22 09/12/23 Rx rivaroxaban 20 mg tablet (Xarelto) 20 mg PO HS #30 tabs 01/23/22 09/12/23 Rx acetaminophen 500 mg tablet 1,000 mg (2 x 500 mg) PO TID #90 06/20/22 09/12/23 Rx (Tylenol Extra Strength) tabs amiodarone 200 mg tablet 200 mg PO DAILY 09/04/22 09/12/23 History blood sugar diagnostic (OneTouch #200 ea 11/02/22 06/25/23 Rx Ultra Test strips) docusate sodium 100 mg capsule 100 mg PO DAILY 11/17/22 09/12/23 History pen needle, diabetic, safety 30 #200 ea 12/01/22 06/25/23 Rx gauge x 1/3" (Novofine Autocover) insulin glargine 100 unit/mL (3 25 unit (0.25 mL) subcut QAM #30 mL 12/08/22 09/12/23 Rx mL) subcutaneous pen (Lantus Solostar U-100 Insulin) Wheelchair (Manual) (Manual #1 ea 01/02/23 06/25/23 Rx Wheelchair) atorvastatin 40 mg tablet 40 mg PO HS 02/16/23 09/12/23 History sennosides 8.6 mg-docusate sodium 1 tab-cap PO DAILY 02/16/23 09/12/23 History 50 mg capsule (Senna Plus) tramadol 50 mg tablet 25 mg (1/2 x 50 mg) PO TID PRN 02/19/23 09/12/23 Rx pain #30 tabs Wheelchair (Manual) #1 ea 02/21/23 06/25/23 Rx carbidopa ER 36.25 mg-levodopa 145 1 cap PO QID 30 days #120 caps 07/02/23 09/12/23 Rx mg capsule,extended release (Rytary) insulin aspart U-100 100 unit/mL 6 unit (0.06 mL) subcut TIDWMEAL 07/09/23 09/12/23 Rx (3 mL) subcutaneous pen (Novolog #30 mL FlexPen U-100 Insulin aspart) cranberry extract 500 mg capsule 500 mg PO BIDM 09/12/23 09/12/23 History docusate sodium 100 mg capsule 100 mg PO BID PRN Constipation 09/12/23 09/12/23 History levothyroxine 125 mcg tablet 125 mcg PO DAILYBB 09/12/23 09/12/23 History lisinopril 30 mg tablet 30 mg PO QAM 09/12/23 09/12/23 History loperamide 2 mg capsule 2 mg PO Q6H PRN Diarrhea 09/12/23 09/12/23 History metformin 850 mg tablet 850 mg PO BIDM 09/12/23 09/12/23 History Past Med/Surg History Problem List (Updated 09/13/23 @ 03:40 by Jose Alfredo Lucio MD) Sepsis Hypomagnesemia (Acute) Fever (Acute) SVT (supraventricular tachycardia) (Acute) Hypertension (Acute) Acute UTI (Acute) Acute confusion (Acute) History of total left hip arthroplasty 12-20-21 Left Total Hip Arthroplasty-Uncemented(Left) - Jeremy Baker, S/P ORIF (open reduction internal fixation) fracture Rip hip 06/2022, cannulated screws x3 Falls frequently Lower urinary tract symptoms Parkinsonism Paroxysmal A-fib (07/2020) Paroxysmal SVT (supraventricular tachycardia) Osteoporosis Subcapital fracture of right hip UTI (urinary tract infection) Closed right hip fracture Contusion of buttock (Acute) Dyslipidemia Hospital discharge follow-up Constipation Lumbar back pain Multiple bruises (Acute) Fecal soiling COVID-19 (Acute) Effusion, left knee Cerebrovascular disease Uncontrolled type 2 diabetes mellitus with neurologic complication, with long- term current use of insulin Prostate cancer Arthritis of both hips Left hip pain Fall (Acute) Hypomagnesemia (Acute) Hypokalemia Gait apraxia Ambulatory dysfunction Left knee DJD Cardiomyopathy (07/2020) Insomnia Seborrheic dermatitis of scalp Vitamin D deficiency History of alcoholism Left knee pain (Acute) Chews tobacco Obesity, diabetes, and hypertension syndrome Dermatitis Hypoglycemia (Acute) Medical History Tubular adenoma of colon Pulmonary nodule Leah's thyroiditis Erectile dysfunction Dilated aortic root Adult situational stress disorder Cognitive impairment Type 2 diabetes mellitus Closed head injury BPH with urinary obstruction Renal cyst Renal lesion Acute blood loss anemia Subcapital fracture of left hip Weakness Mild cognitive impairment Rash Acute respiratory failure with hypoxemia 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 Acute encephalopathy Collapse Hypoglycemia Septic prepatellar bursitis (07/2020) Sore throat Hypothyroidism History of prostate cancer Surgical History History of total left hip arthroplasty 12-20-21 Left Total Hip Arthroplasty-Uncemented(Left) - Jeremy Baker DO S/P ORIF (open reduction internal fixation) fracture Rip hip 06/2022, cannulated screws x3 History of shoulder surgery Left History of left knee surgery Family History Mother Cancer Grandmother (Paternal) Stroke Grandfather (Paternal) Stroke Other Myocardial infarction Denies family history of Ovarian cancer Prostate cancer Breast cancer Colorectal cancer Social History Smoking Status: Never smoker Tobacco Type: Smokeless Tobacco (Dip or Chew) Age Started Using Tobacco: 16; Age Quit Using Tobacco: 26; Do You Dip or Chew Tobacco: Yes; Hx Alcohol Use: No Hx Substance Use: No Preferred Language: [place] Communication Ability: Effective Communication Ability Comment: unable to obtain d/t patien condition. Senior Benefits Manager Required: No Beliefs That Will Affect Care: None marital status: Single Current Living Situation: Residential Current Living Situation Comment: [facility] current occupational status: retired current occupation: [employer] How many Children do You have: 0 Feels Safe at Home: Yes Childhood Exposure to Second-Hand Smoke: Yes Diet: diabetic caffeine: Yes (iced tea ) Dental Care, Regularly: No Physical Activity Frequency: Does not Exercise Seatbelt Use: always Sunscreen Use: No Assistive Devices: Glasses, Hospital Bed, Walker and Wheelchair Review of Systems Review of Systems: Unobtainable due to reduced consciousness Physical Exam Physical Exam: General- Not in acute distress Head- atraumatic Eyes- PERRL. ENT- oropharynx dry Neck- supple, no JVD. Lungs- clear to auscultation, no wheezing or crackles. Heart- regular rate and rhythm; no murmur, no gallop. Abdomen- normal bowel sounds, soft, nontender, no distension. Extremities- no pretibial edema, no erythema seen Neuro- alert, oriented x 1; PERRL, no facial palsy; no dysarthria; moves extremities. Results & Data Results & Data Vital Signs (Past 12 Hours) Vital Signs Temp Pulse Pulse Resp BP BP Pulse Ox 09/12/23 20:24 93 H 188/98 H 09/12/23 20:14 38.0 C H 93 H 21 188/98 H 94 09/12/23 19:53 99 H 188/126 H 09/12/23 17:59 94 H 09/12/23 17:43 09/12/23 17:42 38.1 C H 87 20 183/110 H 94 O2 Del Method 09/12/23 20:24 09/12/23 20:14 Room Air 09/12/23 19:53 09/12/23 17:59 09/12/23 17:43 Room Air 09/12/23 17:42 Diagnostic Findings Laboratory Results WBC 9.31 K/ul (4.8-10.8) 09/12/23 18:08 RBC 4.95 M/uL (4.70-6.10) 09/12/23 18:08 Hgb 15.1 g/dl (14.0-18.0) 09/12/23 18:08 Hct 44.6 % (42.0-52.0) 09/12/23 18:08 MCV 90.1 fL (80.0-100.0) 09/12/23 18:08 MCH 30.5 pg (25.0-34.0) 09/12/23 18:08 MCHC 33.9 g/dL (32.0-36.0) 09/12/23 18:08 RDW Std Deviation 41.4 fL (36.4-46.3) 09/12/23 18:08 RDW Coeff of Robyn 12.7 % (11.5-14.5) 09/12/23 18:08 Plt Count 174 K/uL (130-400) 09/12/23 18:08 MPV 9.2 fL (9.4-12.4) L 09/12/23 18:08 Immature Gran % (Auto) 0.8 % 09/12/23 18:08 Neut % (Auto) 84.9 % 09/12/23 18:08 Lymph % (Auto) 5.4 % 09/12/23 18:08 Phillips % (Auto) 8.2 % 09/12/23 18:08 Eos % (Auto) 0.3 % 09/12/23 18:08 Baso % (Auto) 0.4 % 09/12/23 18:08 Neut # (Auto) 7.91 K/uL (1.40-6.50) H 09/12/23 18:08 Lymph # (Auto) 0.50 K/uL (1.20-3.40) L 09/12/23 18:08 Phillips # (Auto) 0.76 K/uL (0.11-0.59) H 09/12/23 18:08 Eos # (Auto) 0.03 K/uL (0.00-0.50) 09/12/23 18:08 Baso # (Auto) 0.04 K/uL (0.00-0.20) 09/12/23 18:08 Immature Gran # (Auto) 0.07 K/uL (0.01-0.20) 09/12/23 18:08 PT 11.6 Seconds (9.0-12.0) 09/12/23 18:08 INR 1.1 (0.9-1.1) 09/12/23 18:08 APTT 30 Seconds (21-31) 09/12/23 18:08 PTT Ratio 1.1 09/12/23 18:08 Sodium 137 mmol/L (136-145) 09/12/23 18:08 Potassium 3.7 mmol/L (3.5-5.1) 09/12/23 18:08 Chloride 99 mmol/L (98-107) 09/12/23 18:08 Carbon Dioxide 30 mmol/L (21-32) 09/12/23 18:08 Anion Gap 8 (3-11) 09/12/23 18:08 BUN 23 mg/dl (6-23) 09/12/23 18:08 Creatinine 0.95 mg/dl (0.6-1.4) 09/12/23 18:08 Est Cr Clr Drug Dosing 91.7 ml/min 09/12/23 18:08 Est GFR ( Amer) 94.9 ml/min 09/12/23 18:08 Est GFR (Non-Af Amer) 81.9 ml/min 09/12/23 18:08 BUN/Creatinine Ratio 24.2 (10-20) H 09/12/23 18:08 Glucose 338 mg/dl (70-99(Fasting)) H* 09/12/23 18:08 POC Glucose 318 mg/dl (70-99) H* 09/12/23 23:33 Lactate 3.2 mmol/L (0.4-2.0) H* 09/12/23 20:43 Calcium 9.7 mg/dl (8.6-10.3) 09/12/23 18:08 Magnesium 1.3 mg/dl (1.7-2.4) L 09/12/23 18:08 Total Bilirubin 1.0 mg/dl (0.2-1.0) 09/12/23 18:08 Direct Bilirubin 0.2 mg/dl (0-0.2) 09/12/23 18:08 AST 10 U/L (13-39) L 09/12/23 18:08 ALT 7 U/L (7-52) 09/12/23 18:08 Alkaline Phosphatase 85 U/L (34-104) 09/12/23 18:08 Troponin I High Sens 44.3 pg/ml (0-20) H D 09/12/23 23:11 Total Protein 7.5 gm/dl (6.0-8.3) 09/12/23 18:08 Albumin 4.1 gm/dl (3.4-5.0) 09/12/23 18:08 Procalcitonin 0.55 ng/ml (0-0.5) H 09/12/23 18:08 TSH 1.845 uIu/ml (0.300-4.500) 09/12/23 23:11 Urine Color Yellow 09/12/23 20:17 Urine Appearance Cloudy (Clear) A 09/12/23 20:17 Urine pH 5.5 (4.5-7.5) 09/12/23 20:17 Ur Specific Brandt 1.016 (1.000-1.030) 09/12/23 20:17 Urine Protein 3+ (Negative) H 09/12/23 20:17 Urine Glucose (UA) 3+ (Negative) H 09/12/23 20:17 Urine Ketones 1+ (Negative) H 09/12/23 20:17 Urine Blood 2+ (Negative) H 09/12/23 20:17 Urine Nitrite Positive (Negative) A 09/12/23 20:17 Urine Bilirubin Negative (Negative) 09/12/23 20:17 Urine Urobilinogen Negative (Negative) 09/12/23 20:17 Ur Leukocyte Esterase 1+ (Negative) H 09/12/23 20:17 Urine WBC (Auto) >50 /hpf (0-5) H 09/12/23 20:17 Urine RBC (Auto) 11-20 /hpf (0-2) H 09/12/23 20:17 U Hyaline Cast (Auto) 3-5 /lpf (0-2) H 09/12/23 20:17 U Epithel Cells (Auto) 0-2 /hpf (0-2) 09/12/23 20:17 Urine Bacteria (Auto) 2+ (None Seen) H 09/12/23 20:17 Nasal Screen MRSA (PCR) Negative (Negative) 09/12/23 Unknown Adenovirus (PCR) Not Detected (NotDetected) 09/12/23 18:37 B. pertussis DNA (PCR) Not Detected (NotDetected) 09/12/23 18:37 B.parapertussis DNA PCR Not Detected (NotDetected) 09/12/23 18:37 C. pneumoniae DNA (PCR) Not Detected (NotDetected) 09/12/23 18:37 Coronavirus OC43 (PCR) Not Detected (NotDetected) 09/12/23 18:37 Coronavirus HKU1 (PCR) Not Detected (NotDetected) 09/12/23 18:37 Coronavirus 229E (PCR) Not Detected (NotDetected) 09/12/23 18:37 SARS-CoV-2 (PCR) Not Detected (NotDetected) 09/12/23 18:37 Coronavirus NL63 (PCR) Not Detected (NotDetected) 09/12/23 18:37 Human Metapneumovir PCR Not Detected (NotDetected) 09/12/23 18:37 Influenza Type A (PCR) Not Detected (NotDetected) 09/12/23 18:37 Influenza Type B (PCR) Not Detected (NotDetected) 09/12/23 18:37 M. pneumoniae (PCR) Not Detected (NotDetected) 09/12/23 18:37 Parainfluenza 1 (PCR) Not Detected (NotDetected) 09/12/23 18:37 Parainfluenza 2 (PCR) Not Detected (NotDetected) 09/12/23 18:37 Parainfluenza 3 (PCR) Not Detected (NotDetected) 09/12/23 18:37 Parainfluenza 4 (PCR) Not Detected (NotDetected) 09/12/23 18:37 RSV (PCR) Not Detected (NotDetected) 09/12/23 18:37 Entero/Rhino (PCR) Not Detected (NotDetected) 09/12/23 18:37 Impressions Chest X-Ray 09/12/23 18:20 SINGLE VIEW CHEST CLINICAL HISTORY: Sepsis FINDINGS: An AP, portable, upright chest radiograph is compared to study dated 07/29/2023 and correlated with chest CT dated 06/11/2022. The patient's head partially obscures the apices. The heart is enlarged. There is pulmonary vascular congestion. Mild scarring/atelectasis is noted at the lung bases. No airspace consolidation or large pleural effusion is identified. No pneumothorax is seen. The skeletal structures are osteopenic. The bony thorax is grossly intact. Arthritic change is seen in the shoulders. IMPRESSION: Cardiomegaly with pulmonary vascular congestion. ACT 112: Negative or not required by law. Electronically signed by: Brenton Cid M.D. 09/12/2023 7:[address] 09/12/23 18:22 Exam(s): CT HEAD Without Contrast EXAM: CT Head Without Intravenous Contrast CLINICAL HISTORY: Reason for exam: altered. TECHNIQUE: Axial computed tomography images of the head/brain without intravenous contrast. CTDI is 36.18 mGy and DLP is 624.41 mGy-cm. Automated exposure control was utilized for the study. A dose lowering technique was utilized adhering to the principles of ALARA. COMPARISON: CT head on 07/29/2023 FINDINGS: Brain: No acute infarct or hemorrhage identified. No extra-axial fluid collection. No mass effect or midline shift. Scattered areas of hypoattenuation in the supratentorial white matter likely represent chronic small vessel ischemic changes. Ventricles and sulci: Prominence of the ventricles and sulci is likely secondary to cerebral volume loss. Bones: Normal. No bony lesion or acute fracture. Subcutaneous tissues: Normal. Sinuses: Normal. No air-fluid levels or mucosal thickening. Mastoid air cells: Normal. Orbits: Grossly unremarkable. Other: Atherosclerotic calcifications in the intracranial vasculature. IMPRESSION: 1. No acute intracranial abnormality. Further evaluation could be performed with MRI if clinically indicated. 2. Chronic small vessel ischemic changes and cerebral volume loss. Electronically signed by: Rich Jeffrey M.D. 09/12/23 20:19 PM ECG Additional Comments: ECG. Wide QRS tachycardia to 140. Right bundle branch block. Left anterior fascicular block. Bifascicular block. QTc 583. Repeat ECG. Sinus rhythm with first-degree AV block with rate of 83. Left axis deviation. Right bundle branch block. QTc 484. Code Status & VTE Plan VTE Prophylaxis Plan VTE Prophylaxis will be ordered: Yes
[2023-09-13] MEDS: PIPERACILLIN/TAZOBACTAM 4.5 GM in DEXTROSE 5% MINI-B 100 ML IV SCH (03:49)
[2023-09-13] MEDS: LEVOTHYROXINE SODIUM 125 MCG TABLET PO SCH (05:40)
[2023-09-13 06:06] LABS: Basophils # (auto) 0.06 K/uL (0.00-0.20); Basophils % (auto) 0.7 %; Eosinophils # (auto) 0.07 K/uL (0.00-0.50); Eosinophils % (auto) 0.8 %; Hematocrit (blood only) 37.6 % (42.0-52.0); Hemoglobin 12.7 g/dl (14.0-18.0); Immature Granulocytes # (auto) 0.06 K/uL (0.01-0.20); Immature Granulocytes % (auto) 0.7 %; Lymphocytes # (auto) 1.03 K/uL (1.20-3.40); Lymphocytes % (auto) 11.3 %; Mean Corpuscular Hemoglobin 30.5 pg (25.0-34.0); Mean Corpuscular Hgb Conc 33.8 g/dL (32.0-36.0); Mean Corpuscular Volume 90.4 fL (80.0-100.0); Mean Platelet Volume 9.2 fL (9.4-12.4); Monocytes # (auto) 0.57 K/uL (0.11-0.59); Monocytes % (auto) 6.3 %; Neutrophils % (auto) 80.2 %; Platelet Count 141 K/uL (130-400); RDW Coefficient of Variation 12.6 % (11.5-14.5); RDW Standard Deviation 41.3 fL (36.4-46.3); Red Blood Count 4.16 M/uL (4.70-6.10); White Blood Count 9.09 K/ul (4.8-10.8)
[2023-09-13 06:18] LABS: BUN Creatinine Ratio 18.6 (10-20); Calcium 7.9 mg/dl (8.6-10.3); Creatinine Clr Calc Pharmacy 89.1 ml/min; Est GFR (African American) 92.6 ml/min; Est GFR (Non-African American) 79.9 ml/min; Potassium 4.1 mmol/L (3.5-5.1); Troponin I High Sensitivity 45.4 pg/ml (0-20)
[2023-09-13 07:25] LABS: A calco-baum cmplx NotReported Not Detected (NotDetected); Bact fragilis Not Reported Not Detected (NotDetected); Blood Culture Id Panel See PCR Comment (NotDetected); C auris Not Reported Not Detected (NotDetected); CTX-M Resistant Gene Not Detected (NotDetected); Calbicans Not Reported Not Detected (NotDetected); Candida glabrata Not Reported Not Detected (NotDetected); Candida krusei Not Reported Not Detected (NotDetected); Cneoformans/gatti Not Reported Not Detected (NotDetected); Cparapsilosis Not Reported Not Detected (NotDetected); E cloacae compx Not Reported Not Detected (NotDetected); Efaecalis Not Reported Not Detected (NotDetected); Efaecium Not Reported Not Detected (NotDetected); Enterobacterales DETECTED (NotDetected); Enterobacterales Not Reported DETECTED (NotDetected); Escherichia coli Not Reported DETECTED (NotDetected); H influenzae Not Reported Not Detected (NotDetected); IMP Resistant Gene Not Detected (NotDetected); K aerogenes Not Reported Not Detected (NotDetected); KPC Resistant Gene Not Detected (NotDetected); Koxytoca Not Reported Not Detected (NotDetected); Kpneumoniae grp Not Reported Not Detected (NotDetected); Lmonocyt Not Reported Not Detected (NotDetected); N meningitidis Not Reported Not Detected (NotDetected); NDM Resistant Gene Not Detected (NotDetected); OXA 48 Like Resistant Gene Not Detected (NotDetected); P aeruginosa Not Reported Not Detected (NotDetected); Proteus spp Not Reported Not Detected (NotDetected); Salmonella spp Not Reported Not Detected (NotDetected); Staph lugdunensis Not Reported Not Detected (NotDetected); Staph spp. Not Reported Not Detected (NotDetected); Staphaureus Not Reported Not Detected (NotDetected); Staphepi Not Reported Not Detected (NotDetected); Stenmaltophilia Not Reported Not Detected (NotDetected); Strep agal(GrpB) Not Reported Not Detected (NotDetected); Strep pneum Not Reported Not Detected (NotDetected); Strep pyog (GrpA) Not Reported Not Detected (NotDetected); Strep spp Not Reported Not Detected (NotDetected); VIM Resistant Gene Not Detected (NotDetected); mcr-1 Colistin Resistant Gene Not Detected (NotDetected)
[2023-09-13 07:58] LABS: Estimated Average Glucose 186 mg/dl; Hemoglobin A1C 8.1 % (4.5-5.6)
[2023-09-13] MEDS: LANTUS PER UNIT CHARGE SQ SCH (08:16)
--- NOTE | 2023-09-13 08:29 | XCELERA ---
[id number]
[2023-09-13] MEDS: lisinopril 10 MG TAB PO SCH (08:51)
[2023-09-13] MEDS: MAGNESIUM OXIDE 400 MG TAB PO SCH (08:51)
[2023-09-13] MEDS: CHOLECALCIFEROL 25 MCG (1000 UNITS) TAB PO SCH (08:51)
[2023-09-13] MEDS: AMIODARONE 200 MG TAB PO SCH ×2 (08:51→21:45)
[2023-09-13] MEDS: DOCUSATE SODIUM 100 MG CAP PO SCH (08:52)
[2023-09-13] MEDS ORDERED: PHARMACY GLYCEMIC MGMT CONSULT PRN (08:56)
[2023-09-13] MEDS: VANCOMYCIN HCL 1,250 MG in SODIUM CHLORIDE 0.9% 250 ML IV SCH (09:11)
--- NOTE | 2023-09-13 09:30 | Pharmacy Report ---
Pharmacy Glycemic Short Note 2 - Date of Service September 13, 2023 - Glycemic Short BSG Results (Last 24 hours): 09/12/23 09/12/23 09/13/23 18:08 23:33 05:31 Glucose 338 H* 313 H* POC Glucose 318 H* 09/13/23 07:26 Glucose POC Glucose 335 H* OUTPATIENT ANTIDIABETIC REGIMEN: * Lantus 25 units SQ qAM * Aspart 6 units TID before meals plus sliding scale (sliding scale details on med rec) * A1c = 8.1% ASSESSMENT: * Lars is a 68 yo T2DM who presented with confusion, fever, hyperglycemia and suspected UTI. * BSGs remain significantly elevated, however they are trending downward. * His home dose of Lantus was continued on admission. Will continue this for now. May consider additional dose at bedtime if BSG remains significantly elevated. * Will tighten Novolog parameters and order overnight checks at 00 and 04. PLAN FOR INPATIENT GLYCEMIC CONTROL: * Basal insulin * Lantus 25 units SQ qAM * Bolus insulin * NovoLog per scale ACHS or Q6hrs while NPO * Goal Range: Low 120 mg/dL - High 150 mg/dL * Correction Factor: 25 mg/dL/unit * Nutritional / Prandial insulin per carb ratio of 1 unit per 6 grams CHO consumed
--- NOTE | 2023-09-13 10:08 | Cardiology Consultation ---
Date of Consultation September 13, 2023 Assessment & Plan (1) SVT (supraventricular tachycardia): (2) Hypomagnesemia: (3) Sepsis: Plan 68-year-old man with well-documented history of recurrent PSVT developed his usual tachycardia in the context of sepsis and hypomagnesemia, as in the past he was again asymptomatic. Primary intervention is repletion of magnesium and treatment of his sepsis. Could temporarily increase amiodarone to 200 mg twice daily while hospitalized and continue this for short time upon discharge. Given the presence of a correctable precipitant for his atrial fibrillation he likely could be reduced back to his maintenance dose of amiodarone 200 mg daily at the time of outpatient follow-up after this hospitalization. Minor troponin elevation in the absence of symptoms likely demand ischemia, no further workup necessary as he has had multiple hospitalizations with substantial metabolic and hemodynamic stressors without evidence of myocardial ischemia. Will follow along from a cardiology standpoint while he is hospitalized. Please arrange for follow-up with me in the office 2 to 4 weeks after hospital discharge. Thank you. History of Present Illness Reason for Consultation: SVT Requesting Physician: Paula Chan MD Attending Physician: Paula Chan MD History of Present Illness 69-year-old man with history of atrial tacky dysrhythmias (previously suggestive of atrial fibrillation, more recently PSVT morphology) admitted yesterday with possible urosepsis, noted to have asymptomatic paroxysmal supraventricular tachycardia while in the ER. I follow the patient regularly from an outpatient cardiology standpoint. During a hospitalization in 2021 for hip fracture he developed paroxysmal atrial tachycardia with significantly high rates (up to 180 bpm) but no associated symptoms. He was placed on amiodarone at that time, this was discontinued by Dr. Nguyen 1 month later with no recurrence until 2022 when he was again hospitalized for noncardiac reasons (COVID-positive) and developed recurrent but asymptomatic PSVT, at which time his amiodarone was resumed. He did undergo an electrophysiology evaluation to consider ablation, but ultimately medical management with continued amiodarone was recommended. In addition to the approximately 45-minute episode of PSVT while in the ER, he had one 12 beat run of SVT this morning. In both cases, he noted no symptoms whatsoever. At the time my evaluation this morning, he had no somatic complaints and felt well. Allergies Allergy/AdvReac Type Severity Reaction Status Date / Time No Known Allergies Allergy Verified 06/25/23 08:37 Home Medications Medication Instructions Recorded Confirmed Type Wheeled Walker #1 ea 03/21/21 06/25/23 Rx cholecalciferol (vitamin D3) 50 2,000 unit PO DAILY #90 caps 01/23/22 09/12/23 Rx mcg (2,000 unit) capsule magnesium oxide 400 mg PO DAILY #30 tabs 01/23/22 09/12/23 Rx rivaroxaban 20 mg tablet (Xarelto) 20 mg PO HS #30 tabs 01/23/22 09/12/23 Rx acetaminophen 500 mg tablet 1,000 mg (2 x 500 mg) PO TID #90 06/20/22 09/12/23 Rx (Tylenol Extra Strength) tabs amiodarone 200 mg tablet 200 mg PO DAILY 09/04/22 09/12/23 History blood sugar diagnostic (OneTouch #200 ea 11/02/22 06/25/23 Rx Ultra Test strips) docusate sodium 100 mg capsule 100 mg PO DAILY 11/17/22 09/12/23 History pen needle, diabetic, safety 30 #200 ea 12/01/22 06/25/23 Rx gauge x 1/3" (Novofine Autocover) insulin glargine 100 unit/mL (3 25 unit (0.25 mL) subcut QAM #30 mL 12/08/22 09/12/23 Rx mL) subcutaneous pen (Lantus Solostar U-100 Insulin) Wheelchair (Manual) (Manual #1 ea 01/02/23 06/25/23 Rx Wheelchair) atorvastatin 40 mg tablet 40 mg PO HS 02/16/23 09/12/23 History sennosides 8.6 mg-docusate sodium 1 tab-cap PO DAILY 02/16/23 09/12/23 History 50 mg capsule (Senna Plus) tramadol 50 mg tablet 25 mg (1/2 x 50 mg) PO TID PRN 02/19/23 09/12/23 Rx pain #30 tabs Wheelchair (Manual) #1 ea 02/21/23 06/25/23 Rx carbidopa ER 36.25 mg-levodopa 145 1 cap PO QID 30 days #120 caps 07/02/23 09/12/23 Rx mg capsule,extended release (Rytary) insulin aspart U-100 100 unit/mL 6 unit (0.06 mL) subcut TIDWMEAL 07/09/23 09/12/23 Rx (3 mL) subcutaneous pen (Novolog #30 mL FlexPen U-100 Insulin aspart) cranberry extract 500 mg capsule 500 mg PO BIDM 09/12/23 09/12/23 History docusate sodium 100 mg capsule 100 mg PO BID PRN Constipation 09/12/23 09/12/23 History levothyroxine 125 mcg tablet 125 mcg PO DAILYBB 09/12/23 09/12/23 History lisinopril 30 mg tablet 30 mg PO QAM 09/12/23 09/12/23 History loperamide 2 mg capsule 2 mg PO Q6H PRN Diarrhea 09/12/23 09/12/23 History metformin 850 mg tablet 850 mg PO BIDM 09/12/23 09/12/23 History Patient History Medical History Tubular adenoma of colon Pulmonary nodule Leah's thyroiditis Erectile dysfunction Dilated aortic root Adult situational stress disorder Cognitive impairment Type 2 diabetes mellitus Closed head injury BPH with urinary obstruction Renal cyst Renal lesion Acute blood loss anemia Subcapital fracture of left hip Weakness Mild cognitive impairment Rash Acute respiratory failure with hypoxemia 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 Acute encephalopathy Collapse Hypoglycemia Septic prepatellar bursitis (07/2020) Sore throat Hypothyroidism History of prostate cancer Surgical History History of shoulder surgery Left History of left knee surgery Family History Mother Cancer Grandmother (Paternal) Stroke Grandfather (Paternal) Stroke Other Myocardial infarction Denies family history of Ovarian cancer Prostate cancer Breast cancer Colorectal cancer Social History Smoking Status: Never smoker Tobacco Type: Smokeless Tobacco (Dip or Chew) Age Started Using Tobacco: 16; Age Quit Using Tobacco: 26; Do You Dip or Chew Tobacco: Yes; Hx Alcohol Use: No Hx Substance Use: No Preferred Language: French Communication Ability: Effective Communication Ability Comment: unable to obtain d/t patien condition. 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 Normal electrolytes including a potassium of 4.1 and magnesium of 2.0 this morning. Of note, his magnesium was 1.3 yesterday. Hemoglobin 12.7 with white count of 9. BUN 18, creatinine 0.97. Diagnostic Findings Initial ECG showed sinus rhythm at 88 bpm with left axis deviation and right bundle branch block as well as voltage criteria for LVH. Echocardiogram today showed EF 66 5% with no wall motion abnormalities, mild LVH, mild aortic stenosis. Compared to 2021, mild aortic stenosis now seen, otherwise no significant change. Chest x-ray showed cardiomegaly and was read as "pulmonary vascular congestion", but appears benign to me. PG Care Time/CCT Total # of Minutes Spent Total Time Spent with Patient: Total time spent is greater than 50% in coordination of care (as documented) at patient's floor/unit and/or counseling patient: Coding Level of Care Code 95959 IN/OBS CONSULT LVL 4,60M Diagnoses SVT (supraventricular tachycardia) I47.10 Hypomagnesemia E83.42 Sepsis A41.9
--- NOTE | 2023-09-13 10:46 | Electrocardiogram Report ---
Test Reason : Blood Pressure : / mmHG Vent. Rate : 088 BPM Atrial Rate : 088 BPM P-R Int : 196 ms QRS Dur : 134 ms QT Int : 392 ms P-R-T Axes : 056 -43 016 degrees QTc Int : 474 ms Normal sinus rhythm Left anterior fascicular block Right bundle branch block Voltage criteria for left ventricular hypertrophy Abnormal ECG When compared with ECG of 29-JUL-2023 10:12, Vent. rate has increased BY 30 BPM Otherwise no significant change Confirmed by Monty Rodriges ([id number]) on 09/13/2023 10:46:15 AM Referred By: Julio Nunez [place] Confirmed By:Monty Rodriges
--- NOTE | 2023-09-13 10:50 | Electrocardiogram Report ---
Test Reason : Blood Pressure : / mmHG Vent. Rate : 140 BPM Atrial Rate : 000 BPM P-R Int : 000 ms QRS Dur : 158 ms QT Int : 382 ms P-R-T Axes : 000 -54 006 degrees QTc Int : 583 ms Probable Supraventricular tachycardia with retrograde conduction Right bundle branch block Left anterior fascicular block Abnormal ECG When compared with ECG of 12-SEP-2023 18:14, Supraventricular tachycardia now present Vent. rate has increased BY 52 BPM Confirmed by Monty Rodriges ([id number]) on 09/13/2023 10:50:28 AM Referred By: Julio Nunez [place] Confirmed By:Monty Rodriges
--- NOTE | 2023-09-13 10:52 | Electrocardiogram Report ---
Test Reason : Blood Pressure : / mmHG Vent. Rate : 134 BPM Atrial Rate : 000 BPM P-R Int : 000 ms QRS Dur : 144 ms QT Int : 370 ms P-R-T Axes : 000 -51 004 degrees QTc Int : 552 ms Probable Supraventricular tachycardia Right bundle branch block Left anterior fascicular block Abnormal ECG When compared with ECG of 12-SEP-2023 22:12, HR has decreased 13 bpm Otherwise no significant change Confirmed by Monty Rodriges ([id number]) on 09/13/2023 10:52:02 AM Referred By: Julio Nunez [place] Confirmed By:Monty Rodriges
--- NOTE | 2023-09-13 10:53 | Electrocardiogram Report ---
Test Reason : Blood Pressure : / mmHG Vent. Rate : 133 BPM Atrial Rate : 000 BPM P-R Int : 000 ms QRS Dur : 150 ms QT Int : 380 ms P-R-T Axes : 000 -49 003 degrees QTc Int : 565 ms Probable Supraventricular tachycardia Right bundle branch block Left anterior fascicular block Abnormal ECG When compared with ECG of 12-SEP-2023 22:15, No significant change was found Confirmed by Monty Rodriges ([id number]) on 09/13/2023 10:53:33 AM Referred By: Julio Nunez [place] Confirmed By:Monty Rodriges
--- NOTE | 2023-09-13 10:54 | Electrocardiogram Report ---
Test Reason : Blood Pressure : / mmHG Vent. Rate : 147 BPM Atrial Rate : 147 BPM P-R Int : 104 ms QRS Dur : 144 ms QT Int : 334 ms P-R-T Axes : 000 -58 002 degrees QTc Int : 522 ms Poor data quality, interpretation may be adversely affected Supraventricular tachycardia with retrograde conduction Right bundle branch block Left anterior fascicular block Abnormal ECG When compared with ECG of 12-SEP-2023 22:03, No significant change Confirmed by Monty Rodriges ([id number]) on 09/13/2023 10:54:13 AM Referred By: Julio Nunez [place] Confirmed By:Monty Rodriges
--- NOTE | 2023-09-13 10:55 | Electrocardiogram Report ---
Test Reason : Blood Pressure : / mmHG Vent. Rate : 083 BPM Atrial Rate : 083 BPM P-R Int : 214 ms QRS Dur : 146 ms QT Int : 412 ms P-R-T Axes : 050 -35 008 degrees QTc Int : 484 ms Sinus rhythm with 1st degree A-V block Left anterior fascicular block Right bundle branch block Voltage criteria for left ventricular hypertrophy Abnormal ECG When compared with ECG of 12-SEP-2023 22:20, Supraventricular tachycardia no longer present Vent. rate has decreased BY 50 BPM Confirmed by Monty Rodriges ([id number]) on 09/13/2023 10:54:48 AM Referred By: Julio Nunez [place] Confirmed By:Monty Rodriges
[2023-09-13] MEDS: cefTRIAXone SODIUM 2,000 MG/50 ML BAG IV SCH (11:48)
--- NOTE | 2023-09-13 13:00 | Hospitalist Progress Note ---
Date of Service September 13, 2023 Assessment & Plan (1) Sepsis: Plan: 68-year-old M [from [facility]] with past medical history significant for ambulatory dysfunction on wheelchair because of his hips but can ambulate short distance with assistance, BPH, diabetes, parkinsonism, paroxysmal atrial fibrillation, paroxysmal SVT, prostate cancer, hyperlipidemia, hypertension, UTI, hypothyroidism, frequent falls, chews tobacco, mild cognitive impairment, dilated aortic root presents with confusion and found to have UTI and he had an episode of SVT in the ER. In the ER he had an episode of tachycardic heart rate 140s 150s. Blood pressure was okay. code purple was called. IV adenosine 6 mg was given which converted to sinus rhythm but patient went back into SVT. After couple of doses of IV Lopressor 5mg patient came back into sinus rhythm. Blood pressure has been stable. Complicated UTI Severe Sepsis POA: 04/20 above. Tachy, fever and elevated lactate at presentation. Status post IV fluid, lactate normalized. Follow-up urine culture, continue with vancomycin 09/11 and Zosyn 09/11 --> Ceftriaxone 09/12. Add probiotic. Currently hemodynamically stable, patient reports feeling better. Gram-negative bacteremia: 09/11 blood culture positive for gram-negative bacteria. Follow final culture and sensitivity. Continue with antibiotic as above. ID consult. Metabolic encephalopathy: Likely secondary to acute infection, see above. Already improving mentation. Follow. Delirium precautions. History of paroxysmal SVT SVT event in the ED: Code purple was called, IV adenosine 6 mg and several doses of IV Lopressor's were given, patient went into sinus rhythm. Cardiology evaluated, recommended increasing amiodarone dose to 200 mg twice a day for the time being, to be changed back to amiodarone 200 mg daily once patient out of acute issues. Monitor replete electrolytes. Continue telemetry monitoring. Mild elevation of troponin: Likely demand ischemia secondary to acute illness. Echo reviewed. Continue telemetry monitoring. Other chronic medical conditions: Continue with/resume home meds as and when able. PAF: On amiodarone and Xarelto. Continue. Parkinsonism: Continue home carbidopa/levodopa Ambulatory dysfunction: Mostly wheelchair-bound, can ambulate short distance with assistance of walker. PT/OT when able. Uncontrolled diabetes: educator senior clinical consult, continue home insulin, glycemic pharmacy consult, PPx: Follow, monitor urinary retention. Prostate cancer: Follows with urology, follow as prior. Hyperlipidemia: Continue with home statin Hypothyroidism: Continue with home Synthroid Hypertension: Continue with home lisinopril DVT prophylaxis: Patient already on Xarelto due to history of A-fib. Disposition: Med/tele, PT/OT, CM to assist with DC planning. Full code Admission and Anticipated Discharge Date Admission Date: September 12, 2023 Subjective Patient was seen and examined at bedside. Patient was lying in bed, appears tired, oriented x 3 per RN small bowel last evening, improving p.o. intake. Communicated with RN to advance diet as tolerated. Patient reports feeling better. Physical Exam Physical Exam: General- Not in acute distress Head- atraumatic Eyes- PERRL. ENT- oropharynx moist Neck- supple, no JVD. Lungs- clear to auscultation, no wheezing or crackles. Heart- regular rate and rhythm; no murmur, no gallop. Abdomen- normal bowel sounds, soft, nontender, no distension. Extremities- no pretibial edema, no erythema seen Neuro- tired appearing, oriented x 3; PERRL, no facial palsy; no dysarthria; moves extremities. Results & Data Results & Data Vital Signs (Past 12 Hours) Vital Signs Temp Pulse Pulse Resp BP Pulse Ox O2 Del Method 09/13/23 11:03 37.2 C 66 19 164/92 H 97 Room Air 09/13/23 10:55 Room Air 09/13/23 10:55 66 09/13/23 07:29 37.1 C 64 18 166/96 H 94 Room Air 09/13/23 03:13 36.4 C L 66 18 145/90 H 94 Room Air 09/13/23 00:51 Room Air
[2023-09-13] MEDS: ADVANCED PROBIOTIC 625 MG CAPSULE PO SCH (13:45)
[2023-09-13] MEDS: ATORVASTATIN 40 MG TAB PO SCH (21:45)
[2023-09-13] MEDS: RYTARY PO SCH (21:46)
[2023-09-14] MEDS: INSULIN ASPART PER UNIT CHARGE SC SCH (00:38)
[2023-09-14] MEDS: LABETALOL HCL IV 5 MG/ML 20ML IV PRN (00:39)
[2023-09-14] MEDS: LABETALOL HCL IV 5 MG/ML 20ML IV STA (04:00)
[2023-09-14] MEDS: hydrALAZINE HCL 20 MG/ML VIAL IV STA (04:48)
[2023-09-14 06:07] LABS: Hematocrit (blood only) 37.8 % (42.0-52.0); Mean Corpuscular Hemoglobin 30.3 pg (25.0-34.0); Mean Corpuscular Hgb Conc 34.4 g/dL (32.0-36.0); Mean Corpuscular Volume 88.1 fL (80.0-100.0); Mean Platelet Volume 9.3 fL (9.4-12.4); Platelet Count 141 K/uL (130-400); RDW Coefficient of Variation 12.4 % (11.5-14.5); RDW Standard Deviation 39.6 fL (36.4-46.3); Red Blood Count 4.29 M/uL (4.70-6.10); White Blood Count 7.12 K/ul (4.8-10.8)
[2023-09-14 06:29] LABS: BUN Creatinine Ratio 14.1 (10-20); Calcium 7.9 mg/dl (8.6-10.3); Creatinine Clr Calc Pharmacy 124.8 ml/min; Est GFR (African American) 116.6 ml/min; Est GFR (Non-African American) 100.6 ml/min; Magnesium 1.4 mg/dl (1.7-2.4); Phosphorus 2.6 mg/dl (2.5-4.9)
[2023-09-14] MEDS: POTASSIUM CHLORIDE / WTR 10 MEQ/100 ML PLCT IV SCH (07:48)
[2023-09-14] MEDS: MAGNESIUM SULFATE / D5W 1 GM/100 ML BAG IV SCH (07:48)
[2023-09-14] MEDS: POTASSIUM CHLORIDE CRTAB 20 MEQ TABCR PO STA (08:40)
[2023-09-14] MEDS: POTASSIUM CHLORIDE 20 MEQ/15 ML UDC PO STA (08:40)
--- NOTE | 2023-09-14 11:53 | Cardiology Progress Note ---
Date of Service September 14, 2023 Assessment & Plan (1) SVT (supraventricular tachycardia): (2) Hypomagnesemia: (3) Hypokalemia: Plan No further SVT but at risk given ongoing hypokalemia and hypomagnesemia. Continue IV and oral electrolyte repletion. Goal of potassium 4.0 or greater and magnesium 2.0 or greater. Continue amiodarone at increased dose of 200 mg twice daily, could discharge on this dose with plans to taper back as outpatient once he is out of the acute setting. Will sign off from cardiology standpoint, if further issues or questions over the weekend please contact Dr. Gispon as he will be covering [facility] cardiology. I will arrange for patient follow-up in 2 to 4 weeks (assuming discharged within the next week). Admission and Anticipated Discharge Date Admission Date: September 12, 2023 Subjective Uneventful night. He feels well. No chest pain, dyspnea, palpitations or other somatic complaints. Telemetry showed sinus rhythm in the 60-70 bpm range, no further SVT. Physical Exam Physical Exam: No distress. Afebrile. BP 167/102 mmHg. Pulse 64 bpm and regular. Respirations 18 unlabored Skin: no ecchymoses or generalized lesions. HEENT: unremarkable. Neck: JVP at the clavicle at 90 degrees, no carotid bruits. Lungs: clear. Cardiac: regular rhythm, normal S1-2, 2/6 basal systolic ejection murmur which is nonradiating, 2/6 apical holosystolic murmur rating to the axilla. No diastolic murmur. Abdomen: benign. Extremities: trace pretibial edema, pulses intact. Neurologic: normal affect and conversation, nonfocal. Results & Data Laboratory Results Troponin 3045 range. Potassium 3.0, BUN 9, creatinine 0.64. Magnesium 1.4. PG Care Time/CCT Total # of Minutes Spent Total Time Spent with Patient: Total time spent is greater than 50% in coordination of care (as documented) at patient's floor/unit and/or counseling patient: Coding Level of Care Code 41690 SUB INP/OBS CARE 2/35MIN Diagnoses SVT (supraventricular tachycardia) I47.10 Hypomagnesemia E83.42 Hypokalemia E87.6
--- NOTE | 2023-09-14 12:13 | Hospitalist Progress Note ---
Date of Service September 14, 2023 Assessment & Plan (1) Sepsis: Plan: 68-year-old M [from [facility]] with past medical history significant for ambulatory dysfunction on wheelchair because of his hips but can ambulate short distance with assistance, BPH, diabetes, parkinsonism, paroxysmal atrial fibrillation, paroxysmal SVT, prostate cancer, hyperlipidemia, hypertension, UTI, hypothyroidism, frequent falls, chews tobacco, mild cognitive impairment, dilated aortic root presents with confusion and found to have UTI and he had an episode of SVT in the ER. In the ER he had an episode of tachycardic heart rate 140s 150s. Blood pressure was okay. olga alanis was called. IV adenosine 6 mg was given which converted to sinus rhythm but patient went back into SVT. After couple of doses of IV Lopressor 5mg patient came back into sinus rhythm. Blood pressure has been stable. Complicated UTI Severe Sepsis POA: 04/20 above. Tachy, fever and elevated lactate at presentation. Status post IV fluid, lactate normalized. Follow-up urine culture, continue with vancomycin 09/11 and Zosyn 09/11 --> Ceftriaxone 09/12. Add probiotic. Currently hemodynamically stable, patient reports feeling better. Gram-negative bacteremia: 09/11 blood culture positive for gram-negative bacteria. Follow final culture and sensitivity. Continue with antibiotic as above. ID consult. Metabolic encephalopathy: Likely secondary to acute infection, see above. Already improving mentation. Follow. Delirium precautions. History of paroxysmal SVT SVT event in the ED: Olga alanis was called while in ED after presentation, IV adenosine 6 mg and several doses of IV Lopressor's were given, patient went into sinus rhythm. Cardiology evaluated, recommended increasing amiodarone dose to 200 mg twice a day for the time being, to be changed back to amiodarone 200 mg daily once patient out of acute issues. Monitor replete electrolytes. Continue telemetry monitoring. f/u w/ cardio on dc. Mild elevation of troponin: Likely demand ischemia secondary to acute illness. Echo reviewed. Continue telemetry monitoring. Other chronic medical conditions: Continue with/resume home meds as and when able. PAF: On amiodarone and Xarelto. Continue. Parkinsonism: Continue home carbidopa/levodopa Ambulatory dysfunction: Mostly wheelchair-bound, can ambulate short distance with assistance of walker. PT/OT when able. 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 Prostate cancer: Follows with urology, follow as prior. Hyperlipidemia: Continue with home statin Hypothyroidism: Continue with home Synthroid Hypertension: Continue with home lisinopril DVT prophylaxis: Patient already on Xarelto due to history of A-fib. Disposition: Med/tele, PT/OT, CM to assist with DC planning. Full code Admission and Anticipated Discharge Date Admission Date: September 12, 2023 Subjective Patient was seen and examined at bedside. Patient was lying in bed, appears improved, oriented x 3 , eating ok moving bowels ok. Patient reports feeling significantly better. Physical Exam Physical Exam: General- Not in acute distress Head- atraumatic Eyes- PERRL. ENT- oropharynx moist Neck- supple, no JVD. Lungs- clear to auscultation, no wheezing or crackles. Heart- regular rate and rhythm; no murmur, no gallop. Abdomen- normal bowel sounds, soft, nontender, no distension. Extremities- no pretibial edema, no erythema seen Neuro- tired appearing, oriented x 3; PERRL, no facial palsy; no dysarthria; moves extremities. Results & Data Results & Data Vital Signs (Past 12 Hours) Vital Signs Temp Pulse Pulse Resp BP BP Pulse Ox 09/14/23 11:16 36.9 C 64 18 167/102 H 95 09/14/23 09:19 154/103 H 09/14/23 09:09 09/14/23 09:08 61 09/14/23 07:31 36.6 C 59 L 18 180/98 H 96 09/14/23 05:01 171/109 H 09/14/23 04:26 60 181/107 H 09/14/23 04:00 61 183/103 H 09/14/23 03:34 36.6 C 61 18 183/103 H 95 09/14/23 01:06 63 180/94 H 09/14/23 00:39 62 187/106 H O2 Del Method 09/14/23 11:16 Room Air 09/14/23 09:19 09/14/23 09:09 Room Air 09/14/23 09:08 09/14/23 07:31 Room Air 09/14/23 05:01 09/14/23 04:26 09/14/23 04:00 09/14/23 03:34 Room Air 09/14/23 01:06 09/14/23 00:39
[2023-09-14] MEDS ORDERED: RYTARY PO SCH (13:00)
[2023-09-14] MEDS: hydrALAZINE HCL 20 MG/ML VIAL IV PRN (15:57)
--- NOTE | 2023-09-14 17:47 | Infectious Disease Consult ---
Date of Service September 14, 2023 Telehealth Information I performed this visit using a real-time telehealth connection between my location and the patients location ([facility]). After connecting through interactive tele-video, patient was identified by name and date of and/or wristband check.Patient (or authorized healthcare passenger service representative) was informed that this was a telemedicine visit and it was being conducted confidentially over secure lines. My office door was closed and no one else was present in the room with me.Patient (or authorized healthcare passenger service representative) provided consent to proceed with the visit, expressed an understanding of privacy and security of the telemedicine visit, and gave permission to have a hospital passenger service representative in the room in order to assist with the visit and to conduct portions of the visit, as needed. I informed the patient (or authorized healthcare passenger service representative) that I reviewed their record and presented the opportunity for them to ask any questions regarding the visit today. The patient agreed to participate. Assessment & Plan (1) Complicated UTI (urinary tract infection): (2) Sepsis: (3) Acute encephalopathy: (4) [facility] resident: Plan We agree with the primary team on IV ceftriaxone. We will follow-up on the blood culture and adjust antibiotics as needed. He will require at least 10 days of antibiotics to treat both bacteremia as well as complicated urinary tract infection. Thank you for consulting infectious disease. We will continue to follow. History of Present Illness History of Present Illness Mr. Kumar is a 68-year-old man (longterm resident) with medical history of type 2 diabetes, hypertension, hyperlipidemia, paroxysmal A-fib, hypothyroidism, BPH, mild cognitive impairment and limited activities of daily living who was admitted to [facility] on 09/11 because of acute encephalopathy. On presentation, he was found to have SVT in the emergency department and febrile at 38.1. He was also found to have elevated lactic acid and urine analysis showing more than 50 WBCs with 2+ bacteria. He was suspected of having urinary tract infection and was started on IV ceftriaxone. Shortly after admission, 2 sets of blood culture came back positive for E. coli via [employer]. ID team was consulted for further recommendations and to help guide antibiotic treatment. Allergies Allergy/AdvReac Type Severity Reaction Status Date / Time No Known Allergies Allergy Verified 06/25/23 08:37 Home Medications Medication Instructions Recorded Confirmed Type Wheeled Walker #1 ea 03/21/21 06/25/23 Rx cholecalciferol (vitamin D3) 50 2,000 unit PO DAILY #90 caps 01/23/22 09/12/23 Rx mcg (2,000 unit) capsule magnesium oxide 400 mg PO DAILY #30 tabs 01/23/22 09/12/23 Rx rivaroxaban 20 mg tablet (Xarelto) 20 mg PO HS #30 tabs 01/23/22 09/12/23 Rx acetaminophen 500 mg tablet 1,000 mg (2 x 500 mg) PO TID #90 06/20/22 09/12/23 Rx (Tylenol Extra Strength) tabs amiodarone 200 mg tablet 200 mg PO DAILY 09/04/22 09/12/23 History blood sugar diagnostic (OneTouch #200 ea 11/02/22 06/25/23 Rx Ultra Test strips) docusate sodium 100 mg capsule 100 mg PO DAILY 11/17/22 09/12/23 History pen needle, diabetic, safety 30 #200 ea 12/01/22 06/25/23 Rx gauge x 1/3" (Novofine Autocover) insulin glargine 100 unit/mL (3 25 unit (0.25 mL) subcut QAM #30 mL 12/08/22 09/12/23 Rx mL) subcutaneous pen (Lantus Solostar U-100 Insulin) Wheelchair (Manual) (Manual #1 ea 01/02/23 06/25/23 Rx Wheelchair) atorvastatin 40 mg tablet 40 mg PO HS 02/16/23 09/12/23 History sennosides 8.6 mg-docusate sodium 1 tab-cap PO DAILY 02/16/23 09/12/23 History 50 mg capsule (Senna Plus) tramadol 50 mg tablet 25 mg (1/2 x 50 mg) PO TID PRN 02/19/23 09/12/23 Rx pain #30 tabs Wheelchair (Manual) #1 ea 02/21/23 06/25/23 Rx carbidopa ER 36.25 mg-levodopa 145 1 cap PO QID 30 days #120 caps 07/02/23 09/12/23 Rx mg capsule,extended release (Rytary) insulin aspart U-100 100 unit/mL 6 unit (0.06 mL) subcut TIDWMEAL 07/09/23 09/12/23 Rx (3 mL) subcutaneous pen (Novolog #30 mL FlexPen U-100 Insulin aspart) cranberry extract 500 mg capsule 500 mg PO BIDM 09/12/23 09/12/23 History docusate sodium 100 mg capsule 100 mg PO BID PRN Constipation 09/12/23 09/12/23 History levothyroxine 125 mcg tablet 125 mcg PO DAILYBB 09/12/23 09/12/23 History lisinopril 30 mg tablet 30 mg PO QAM 09/12/23 09/12/23 History loperamide 2 mg capsule 2 mg PO Q6H PRN Diarrhea 09/12/23 09/12/23 History metformin 850 mg tablet 850 mg PO BIDM 09/12/23 09/12/23 History Patient History Medical History Tubular adenoma of colon Pulmonary nodule Leah's thyroiditis Erectile dysfunction Dilated aortic root Adult situational stress disorder Cognitive impairment Type 2 diabetes mellitus Closed head injury BPH with urinary obstruction Renal cyst Renal lesion Acute blood loss anemia Subcapital fracture of left hip Weakness Mild cognitive impairment Rash Acute respiratory failure with hypoxemia 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 Acute encephalopathy Collapse Hypoglycemia Septic prepatellar bursitis (07/2020) Sore throat Hypothyroidism History of prostate cancer Surgical History History of shoulder surgery Left History of left knee surgery Family History Mother Cancer Grandmother (Paternal) Stroke Grandfather (Paternal) Stroke Other Myocardial infarction Denies family history of Ovarian cancer Prostate cancer Breast cancer Colorectal cancer Social History Smoking Status: Never smoker Tobacco Type: Smokeless Tobacco (Dip or Chew) Age Started Using Tobacco: 16; Age Quit Using Tobacco: 26; Do You Dip or Chew Tobacco: Yes; Hx Alcohol Use: No Hx Substance Use: No Preferred Language: Nauruan Communication Ability: Effective Communication Ability Comment: unable to obtain d/t patien condition. 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 How many Children do You have: 0 Feels Safe at Home: Yes Childhood Exposure to Second-Hand Smoke: Yes Diet: diabetic caffeine: Yes (iced tea ) Dental Care, Regularly: No Physical Activity Frequency: Does not Exercise Seatbelt Use: always Sunscreen Use: No Assistive Devices: Walker and Wheelchair Review of Systems Constitutional: No fever or chills Cardiovascular: No chest pain or palpitations Respiratory: No shortness of breath or cough Abdominal: no abd pain or diarrhea Urinary tract: means in place Musculoskeletal: No muscle pain or rash Physical Exam Couldn't be performed as the encounter was done via telemed Results & Data Vital Signs (Past 12 Hours) Vital Signs Temp Pulse Pulse Resp BP Pulse Ox O2 Del Method 09/14/23 16:03 74 09/14/23 15:20 36.4 C L 65 18 175/114 H 98 Room Air 09/14/23 11:16 36.9 C 64 18 167/102 H 95 Room Air 09/14/23 09:19 154/103 H 09/14/23 09:09 Room Air 09/14/23 09:08 61 09/14/23 07:31 36.6 C 59 L 18 180/98 H 96 Room Air Laboratory Results Microbiology: 09/11: 4 out of 4 bottles of blood culture growing gram-negative bacilli (identified as E. coli via [employer] fire) 09/11: Urine culture with more than 3 types of organisms suspected to be contamination 09/12: 2 sets of blood culture negative to date
[2023-09-14] MEDS: amLODIPine BESYLATE 5 MG TAB PO ONE (21:30)
[2023-09-15] MEDS: amLODIPine BESYLATE 5 MG TAB PO SCH (08:29)
[2023-09-15] MEDS: LANTUS PER UNIT CHARGE SQ SCH (08:36)
[2023-09-15 10:06] LABS: Hematocrit (blood only) 41.2 % (42.0-52.0); Hemoglobin 14.6 g/dl (14.0-18.0); Mean Corpuscular Hemoglobin 30.9 pg (25.0-34.0); Mean Corpuscular Hgb Conc 35.4 g/dL (32.0-36.0); Mean Corpuscular Volume 87.3 fL (80.0-100.0); Mean Platelet Volume 9.2 fL (9.4-12.4); Platelet Count 163 K/uL (130-400); RDW Coefficient of Variation 12.4 % (11.5-14.5); RDW Standard Deviation 39.8 fL (36.4-46.3); Red Blood Count 4.72 M/uL (4.70-6.10)
[2023-09-15 10:19] LABS: BUN Creatinine Ratio 17.2 (10-20); Calcium 8.6 mg/dl (8.6-10.3); Creatinine Clr Calc Pharmacy 124.8 ml/min; Est GFR (African American) 116.6 ml/min; Est GFR (Non-African American) 100.6 ml/min; Magnesium 1.5 mg/dl (1.7-2.4); Potassium 3.5 mmol/L (3.5-5.1)
[2023-09-15] MEDS: ADENOSINE IV SOLN 3 MG/ML 2 ML VIAL IV STA (11:22)
[2023-09-15] MEDS: MAGNESIUM SULFATE / D5W 1 GM/100 ML BAG IV SCH (11:37)
--- NOTE | 2023-09-15 14:01 | Hospitalist Progress Note ---
Date of Service September 15, 2023 Assessment & Plan (1) Sepsis: Plan: 68-year-old M [from [facility]] with past medical history significant for ambulatory dysfunction on wheelchair because of his hips but can ambulate short distance with assistance, BPH, diabetes, parkinsonism, paroxysmal atrial fibrillation, paroxysmal SVT, prostate cancer, hyperlipidemia, hypertension, UTI, hypothyroidism, frequent falls, chews tobacco, mild cognitive impairment, dilated aortic root presents with confusion and found to have UTI and he had an episode of SVT in the ER. In the ER he had an episode of tachycardic heart rate 140s 150s. Blood pressure was okay. olga alanis was called. IV adenosine 6 mg was given which converted to sinus rhythm but patient went back into SVT. After couple of doses of IV Lopressor 5mg patient came back into sinus rhythm. Blood pressure has been stable. Complicated UTI Severe Sepsis POA: 04/20 above. Tachy, fever and elevated lactate at presentation. Status post IV fluid, lactate normalized. Urine culture contaminated. Continue with vancomycin 09/11 and Zosyn 09/11 --> Ceftriaxone 09/12. c/wprobiotic. Currently hemodynamically stable, patient reports feeling better. Gram-negative bacteremia: 09/11 blood culture positive for gram-negative bacteria. ID evaled, 10 day therapy for uti and bacteremia. 09/11 C/S reviewed, c/w rocephin for now. Metabolic encephalopathy: Likely secondary to acute infection, see above. Resolved. Follow. Delirium precautions. History of paroxysmal SVT SVT event in the ED: Olga alanis was called while in ED after presentation, IV adenosine 6 mg and several doses of IV Lopressor's were given, patient went into sinus rhythm. Had 2 episodes of SVT today, 1039hr (needed adenosine x 1) and 1324 hrs (resolved w/ vagal maneuver) Cardiology evaluated, recommended increasing amiodarone dose to 200 mg twice a day for the time being, to be changed back to amiodarone 200 mg daily once patient out of acute issues. 2 episodes of SVT on 09/14, d/w cardio, starting patient on amio drip, plan to have EP eval him on Sunday. Monitor replete electrolytes. Continue telemetry monitoring. f/u w/ cardio on dc. Mild elevation of troponin: Likely demand ischemia secondary to acute illness. Echo reviewed. Continue telemetry monitoring. Other chronic medical conditions: Continue with/resume home meds as and when able. PAF: On amiodarone and Xarelto. Continue. Parkinsonism: Continue home carbidopa/levodopa Ambulatory dysfunction: Mostly wheelchair-bound, can ambulate short distance with assistance of walker. PT/OT when able. Uncontrolled diabetes: public health educator consult, continue home insulin, glycemic pharmacy consult, PPx: Follow, monitor urinary retention. Prostate cancer: Follows with urology, follow as prior. Hyperlipidemia: Continue with home statin Hypothyroidism: Continue with home Synthroid Hypertension: Continue with home lisinopril DVT prophylaxis: Patient already on Xarelto due to history of A-fib. Disposition: Med/tele, PT/OT, CM to assist with DC planning. Full code Admission and Anticipated Discharge Date Admission Date: September 12, 2023 Subjective Patient was seen and examined at bedside. Patient was lying in bed, pt's friend was at bedside who was also updated , eating ok moving bowels ok. Patient underwent SVT at around 10:39 AM, needed 1 dose of adenosine and broke into sinus rhythm. Also had another episode of SVT around [id number] hrs., broke into sinus rhythm with carotid sinus massage. Both SVTs were symptom-free and patient was hemodynamically stable. Physical Exam Physical Exam: General- Not in acute distress Head- atraumatic Eyes- PERRL. ENT- oropharynx moist Neck- supple, no JVD. Lungs- clear to auscultation, no wheezing or crackles. Heart- regular rate and rhythm; no murmur, no gallop. Abdomen- normal bowel sounds, soft, nontender, no distension. Extremities- no pretibial edema, no erythema seen Neuro- tired appearing, oriented x 3; PERRL, no facial palsy; no dysarthria; moves extremities. Results & Data Results & Data Vital Signs (Past 12 Hours) Vital Signs Temp Pulse Pulse Pulse Resp BP Pulse Ox 09/15/23 12:33 36.9 C 94 H 18 138/88 98 09/15/23 10:47 36.6 C 168 H 18 104/76 95 09/15/23 07:30 65 09/15/23 07:12 36.6 C 66 16 161/98 H 98 09/15/23 03:05 36.9 C 74 18 172/110 H 93 O2 Del Method 09/15/23 12:33 Room Air 09/15/23 10:47 Room Air 09/15/23 07:30 09/15/23 07:12 Room Air 09/15/23 03:05 Room Air
[2023-09-15] MEDS ORDERED: STAT IV Infusion **Titration per Protocol STA (14:02)
[2023-09-15] MEDS ORDERED: 0.2 MICRON FILTER SET 1 EACH IV STA (14:02)
[2023-09-15] MEDS ORDERED: AMIODARONE IV BOLUS & DRIP IV STA (14:02)
[2023-09-15] MEDS: POTASSIUM CHLORIDE CRTAB 20 MEQ TABCR PO STA (14:13)
[2023-09-15] MEDS: AMIODARONE / D5W 150 MG/100 ML BAG IV STA (14:13)
[2023-09-15] MEDS: POTASSIUM CHLORIDE / WTR 10 MEQ/100 ML PLCT IV SCH (14:16)
[2023-09-15] MEDS: AMIODARONE / D5W 360 MG/200 ML BAG IV ONE (14:26)
[2023-09-15] MEDS: MAGNESIUM SULFATE / D5W 1 GM/100 ML BAG IV ONE (15:27)
--- NOTE | 2023-09-15 19:21 | Electrocardiogram Report ---
Test Reason : Blood Pressure : / mmHG Vent. Rate : 181 BPM Atrial Rate : 181 BPM P-R Int : 000 ms QRS Dur : 130 ms QT Int : 252 ms P-R-T Axes : 000 -75 008 degrees QTc Int : 437 ms Poor data quality, interpretation may be adversely affected Supraventricular tachycardia Right bundle branch block Left anterior fascicular block Bifascicular block Abnormal ECG When compared with ECG of 12-SEP-2023 22:22, Supraventricular tachycardia has replaced Sinus rhythm Vent. rate has increased BY 98 BPM Confirmed by Krunal Gipson ([id number]) on 09/15/2023 7:20:34 PM [facility] Confirmed By:Krunal Gipson
--- NOTE | 2023-09-15 19:21 | Electrocardiogram Report ---
Test Reason : Blood Pressure : / mmHG Vent. Rate : 102 BPM Atrial Rate : 102 BPM P-R Int : 194 ms QRS Dur : 132 ms QT Int : 374 ms P-R-T Axes : 064 -52 018 degrees QTc Int : 487 ms Sinus tachycardia Right bundle branch block Left anterior fascicular block Bifascicular block Abnormal ECG When compared with ECG of 15-SEP-2023 11:07, Sinus rhythm has replaced Supraventricular tachycardia Vent. rate has decreased BY 79 BPM Confirmed by Krunal Gipson ([id number]) on 09/15/2023 7:20:53 PM Referred By: Julio Nunez Jolley Confirmed By:Krunal Gipson
[2023-09-15] MEDS: AMIODARONE / D5W 360 MG/200 ML BAG IV SCH (20:28)
--- NOTE | 2023-09-16 07:40 | Electrocardiogram Report ---
Test Reason : Blood Pressure : / mmHG Vent. Rate : 096 BPM Atrial Rate : 096 BPM P-R Int : 216 ms QRS Dur : 132 ms QT Int : 386 ms P-R-T Axes : 067 -52 020 degrees QTc Int : 487 ms Sinus rhythm with 1st degree A-V block Right bundle branch block Left anterior fascicular block Bifascicular block Minimal voltage criteria for LVH, may be normal variant Abnormal ECG When compared with ECG of 15-SEP-2023 11:32, No significant change was found Confirmed by Krunal Gipson ([id number]) on 09/16/2023 7:39:46 AM [facility] Confirmed By:Krunal Gipson
[2023-09-16] MEDS: LANTUS PER UNIT CHARGE SQ SCH (08:19)
[2023-09-16 09:00] LABS: Potassium 4.2 mmol/L (3.5-5.1)
[2023-09-16 09:01] LABS: BUN Creatinine Ratio 19.2 (10-20); Calcium 8.3 mg/dl (8.6-10.3); Creatinine Clr Calc Pharmacy 109.5 ml/min; Est GFR (African American) 110.5 ml/min; Est GFR (Non-African American) 95.3 ml/min; Magnesium 1.7 mg/dl (1.7-2.4); Phosphorus 2.9 mg/dl (2.5-4.9)
--- NOTE | 2023-09-16 09:10 | Pharmacy Report ---
Pharmacy Glycemic Short Note 2 - Date of Service September 16, 2023 - Glycemic Short BSG Results (Last 24 hours): 09/15/23 09/15/23 09/15/23 09:40 12:06 15:52 Glucose 332 H* POC Glucose 267 H 256 H 09/15/23 09/16/23 09/16/23 20:20 07:13 08:26 Glucose 358 H* POC Glucose 218 H 284 H OUTPATIENT ANTIDIABETIC REGIMEN: * Lantus 25 units SQ qAM * Aspart 6 units TID before meals plus sliding scale (sliding scale details on med rec) * A1c = 8.1% ASSESSMENT: 09/15 * Patient's blood sugars above goal last 48 hours, despite tightening CF/CR and increasing Lantus yesterday morning. * Continue to titrate Lantus dose up and tighten CF/CR further at this time. 09/12 * Lars is a 68 yo T2DM who presented with confusion, fever, hyperglycemia and suspected UTI. * BSGs remain significantly elevated, however they are trending downward. * His home dose of Lantus was continued on admission. Will continue this for now. May consider additional dose at bedtime if BSG remains significantly elevated. * Will tighten NovoLog parameters and order overnight checks at 00 and 04. PLAN FOR INPATIENT GLYCEMIC CONTROL: * Basal insulin * Lantus 35 units SQ qAM * Bolus insulin * NovoLog per scale ACHS or Q6hrs while NPO * Goal Range: Low 120 mg/dL - High 150 mg/dL * Correction Factor: 15 mg/dL/unit * Nutritional / Prandial insulin per carb ratio of 1 unit per 5 grams CHO consumed
--- NOTE | 2023-09-16 13:55 | Hospitalist Progress Note ---
Date of Service September 16, 2023 Assessment & Plan (1) Sepsis: Plan: 68-year-old M [from [facility]] with past medical history significant for ambulatory dysfunction on wheelchair because of his hips but can ambulate short distance with assistance, BPH, diabetes, parkinsonism, paroxysmal atrial fibrillation, paroxysmal SVT, prostate cancer, hyperlipidemia, hypertension, UTI, hypothyroidism, frequent falls, chews tobacco, mild cognitive impairment, dilated aortic root presents with confusion and found to have UTI and he had an episode of SVT in the ER. In the ER he had an episode of tachycardic heart rate 140s 150s. Blood pressure was okay. olga alanis was called. IV adenosine 6 mg was given which converted to sinus rhythm but patient went back into SVT. After couple of doses of IV Lopressor 5mg patient came back into sinus rhythm. Blood pressure has been stable. Complicated UTI Severe Sepsis POA: 04/20 above. Tachy, fever and elevated lactate at presentation. Status post IV fluid, lactate normalized. Urine culture contaminated. Continue with vancomycin 09/11 and Zosyn 09/11 --> Ceftriaxone 09/12. c/wprobiotic. Currently hemodynamically stable, patient reports feeling better. Gram-negative bacteremia: 09/11 blood culture positive for gram-negative bacteria. ID evaled, 10 day therapy for uti and bacteremia. 09/11 C/S reviewed, c/w rocephin for now. Metabolic encephalopathy: Likely secondary to acute infection, see above. Resolved. Follow. Delirium precautions. History of paroxysmal SVT SVT event in the ED: Olga alanis was called while in ED after presentation, IV adenosine 6 mg and several doses of IV Lopressor's were given, patient went into sinus rhythm. Had 3 episodes of SVT 09/14, 1039hr (needed adenosine x 1) and 1324 hrs (resolved w/ vagal maneuver), 1400+ hrs (just prior to starting amio infusion) Cardiology evaluated, recommended increasing amiodarone dose to 200 mg twice a day for the time being, to be changed back to amiodarone 200 mg daily once patient out of acute issues. 3 episodes of SVT on 09/14, cardio evaled, patient on amio drip, plan to have EP eval him on Sunday. Monitor replete electrolytes. Continue telemetry monitoring. f/u w/ cardio on dc. Mild elevation of troponin: Likely demand ischemia secondary to acute illness. Echo reviewed. Continue telemetry monitoring. Other chronic medical conditions: Continue with/resume home meds as and when able. PAF: On amiodarone and Xarelto. Continue. Parkinsonism: Continue home carbidopa/levodopa Ambulatory dysfunction: Mostly wheelchair-bound, can ambulate short distance with assistance of walker. PT/OT when able. Uncontrolled diabetes: staff development educator consult, continue home insulin, glycemic pharmacy consult, PPx: Follow, monitor urinary retention. Prostate cancer: Follows with urology, follow as prior. Hyperlipidemia: Continue with home statin Hypothyroidism: Continue with home Synthroid Hypertension: Continue with home lisinopril DVT prophylaxis: Patient already on Xarelto due to history of A-fib. Disposition: Med/tele, PT/OT, CM to assist with DC planning. Full code Admission and Anticipated Discharge Date Admission Date: September 12, 2023 Subjective Patient was seen and examined at bedside. Patient was lying in bed, reports eating ok moving bowels ok. No further SVTs after starting amiodarone drip 09/14 Physical Exam Physical Exam: General- Not in acute distress Head- atraumatic Eyes- PERRL. ENT- oropharynx moist Neck- supple, no JVD. Lungs- clear to auscultation, no wheezing or crackles. Heart- regular rate and rhythm; no murmur, no gallop. Abdomen- normal bowel sounds, soft, nontender, no distension. Extremities- no pretibial edema, no erythema seen Neuro- tired appearing, oriented x 3; PERRL, no facial palsy; no dysarthria; moves extremities. Results & Data Results & Data Vital Signs (Past 12 Hours) Vital Signs Temp Pulse Pulse Resp BP Pulse Ox O2 Del Method 09/16/23 10:49 36.6 C 60 16 134/81 96 Room Air 09/16/23 09:58 61 09/16/23 09:58 Room Air 09/16/23 08:48 148/90 H 09/16/23 07:08 36.7 C 60 18 163/100 H 96 Room Air 09/16/23 03:40 36.9 C 62 16 155/96 H 97 Room Air
[2023-09-16] MEDS: MAGNESIUM SULFATE / D5W 1 GM/100 ML BAG IV SCH (14:02)
[2023-09-17 06:54] LABS: Hematocrit (blood only) 41.1 % (42.0-52.0); Hemoglobin 14.2 g/dl (14.0-18.0); Mean Corpuscular Hemoglobin 30.7 pg (25.0-34.0); Mean Corpuscular Hgb Conc 34.5 g/dL (32.0-36.0); Mean Corpuscular Volume 88.8 fL (80.0-100.0); Platelet Count 204 K/uL (130-400); RDW Coefficient of Variation 12.3 % (11.5-14.5); RDW Standard Deviation 39.9 fL (36.4-46.3); Red Blood Count 4.63 M/uL (4.70-6.10); White Blood Count 6.66 K/ul (4.8-10.8)
--- NOTE | 2023-09-17 07:15 | Pharmacy Report ---
Pharmacy Glycemic Short Note 2 - Date of Service September 17, 2023 - Glycemic Short BSG Results (Last 24 hours): 09/16/23 09/16/23 09/16/23 07:13 08:26 11:14 Glucose 358 H* POC Glucose 284 H 261 H 09/16/23 09/16/23 09/17/23 16:11 20:05 07:03 Glucose POC Glucose 79 89 159 H OUTPATIENT ANTIDIABETIC REGIMEN: * Lantus 25 units SQ qAM * Aspart 6 units TID before meals plus sliding scale (sliding scale details on med rec) * A1c = 8.1% ASSESSMENT: 09/16 * Patient received total of 79 units of insulin yesterday, of which 35 units were basal insulin * Fasting BSG much improved, 159 mg/dL this AM - may scale back to 30 units * BSGs trending down yesterday afternoon below goal, will loosen CF/CR slightly 09/15 * Patient's blood sugars above goal last 48 hours, despite tightening CF/CR and increasing Lantus yesterday morning. * Continue to titrate Lantus dose up and tighten CF/CR further at this time. 09/12 * Lars is a 68 yo T2DM who presented with confusion, fever, hyperglycemia and suspected UTI. * BSGs remain significantly elevated, however they are trending downward. * His home dose of Lantus was continued on admission. Will continue this for now. May consider additional dose at bedtime if BSG remains significantly elevated. * Will tighten NovoLog parameters and order overnight checks at 00 and 04. PLAN FOR INPATIENT GLYCEMIC CONTROL: * Basal insulin * Lantus 30 units SQ qAM * Bolus insulin * NovoLog per scale ACHS or Q6hrs while NPO * Goal Range: Low 120 mg/dL - High 150 mg/dL * Correction Factor: 20 mg/dL/unit * Nutritional / Prandial insulin per carb ratio of 1 unit per 6 grams CHO consumed
[2023-09-17] MEDS: LANTUS PER UNIT CHARGE SQ SCH (08:47)
[2023-09-17 10:37] LABS: Magnesium 1.5 mg/dl (1.7-2.4); Potassium 3.5 mmol/L (3.5-5.1)
[2023-09-17 10:43] LABS: BUN Creatinine Ratio 20.9 (10-20); Creatinine Clr Calc Pharmacy 119.3 ml/min; Est GFR (African American) 114.4 ml/min; Est GFR (Non-African American) 98.7 ml/min
--- NOTE | 2023-09-17 12:44 | Hospitalist Progress Note ---
Date of Service September 17, 2023 Assessment & Plan (1) Sepsis: Plan: 68-year-old M [from [facility]] with past medical history significant for ambulatory dysfunction on wheelchair because of his hips but can ambulate short distance with assistance, BPH, diabetes, parkinsonism, paroxysmal atrial fibrillation, paroxysmal SVT, prostate cancer, hyperlipidemia, hypertension, UTI, hypothyroidism, frequent falls, chews tobacco, mild cognitive impairment, dilated aortic root presents with confusion and found to have UTI and he had an episode of SVT in the ER. In the ER he had an episode of tachycardic heart rate 140s 150s. Blood pressure was okay. olga alanis was called. IV adenosine 6 mg was given which converted to sinus rhythm but patient went back into SVT. After couple of doses of IV Lopressor 5mg patient came back into sinus rhythm. Blood pressure has been stable. Complicated UTI Severe Sepsis POA: 04/20 above. Tachy, fever and elevated lactate at presentation. Status post IV fluid, lactate normalized. Urine culture contaminated. Continue with vancomycin 09/11 and Zosyn 09/11 --> Ceftriaxone 09/12. c/wprobiotic. d/w ID 09/16, will transition to bactrim ds at [place] to complete 14 day therapy to cover for uti/bacteremia Currently hemodynamically stable, patient reports feeling better. Gram-negative bacteremia: 09/11 blood culture positive for gram-negative bacteria. ID evaled, see above. 09/11 C/S reviewed, c/w rocephin for now. Metabolic encephalopathy: Likely secondary to acute infection, see above. at baseline now. Follow. Delirium precautions. History of paroxysmal SVT SVT event in the ED: Olga alanis was called while in ED after presentation, IV adenosine 6 mg and several doses of IV Lopressor's were given, patient went into sinus rhythm. Had 3 episodes of SVT 09/14, 1039hr (needed adenosine x 1) and 1324 hrs (resolved w/ vagal maneuver), 1400+ hrs (just prior to starting amio infusion) Cardiology evaluated, recommended increasing amiodarone dose to 200 mg twice a day for the time being, to be changed back to amiodarone 200 mg daily once patient out of acute issues. 3 episodes of SVT on 09/14, cardio evaled, patient on amio drip, plan to have EP eval him on today. Monitor replete electrolytes. Continue telemetry monitoring. d/w cardio, plan for EP eval today, await further recs. f/u w/ cardio on dc. Mild elevation of troponin: Likely demand ischemia secondary to acute illness. Echo reviewed. Continue telemetry monitoring. Other chronic medical conditions: Continue with/resume home meds as and when able. PAF: On amiodarone and Xarelto. Continue. Parkinsonism: Continue home carbidopa/levodopa Ambulatory dysfunction: Mostly wheelchair-bound, can ambulate short distance with assistance of walker. PT/OT when able. Uncontrolled diabetes: music educator consult, continue home insulin, glycemic pharmacy consult, PPx: Follow, monitor urinary retention. Prostate cancer: Follows with urology, follow as prior. Hyperlipidemia: Continue with home statin Hypothyroidism: Continue with home Synthroid Hypertension: Continue with home lisinopril DVT prophylaxis: Patient already on Xarelto due to history of A-fib. Disposition: Med/tele, PT/OT, CM to assist with DC planning. Full code Admission and Anticipated Discharge Date Admission Date: September 12, 2023 Subjective Patient was seen and examined at bedside. Patient was lying in bed, reports eating ok moving bowels ok. No further SVTs after starting amiodarone drip 09/14 pt's brother and becky updated at bedside, answered all their questions. Physical Exam Physical Exam: General- Not in acute distress Head- atraumatic Eyes- PERRL. ENT- oropharynx moist Neck- supple, no JVD. Lungs- clear to auscultation, no wheezing or crackles. Heart- regular rate and rhythm; no murmur, no gallop. Abdomen- normal bowel sounds, soft, nontender, no distension. Extremities- no pretibial edema, no erythema seen Neuro- tired appearing, oriented x 3; PERRL, no facial palsy; no dysarthria; moves extremities. Results & Data Results & Data Vital Signs (Past 12 Hours) Vital Signs Temp Pulse Pulse Pulse Resp BP Pulse Ox 09/17/23 10:19 36.7 C 73 20 147/97 H 96 09/17/23 07:00 68 09/17/23 07:00 36.6 C 63 18 166/98 H 96 09/17/23 06:17 150/90 H 07/01/24 03:01 36.8 C 62 17 181/103 H 98 O2 Del Method 09/17/23 10:19 Room Air 09/17/23 07:00 09/17/23 07:00 Room Air 09/17/23 06:17 09/17/23 03:01 Room Air
[2023-09-17] MEDS: POTASSIUM CHLORIDE CRTAB 20 MEQ TABCR PO STA (12:54)
[2023-09-17] MEDS: MAGNESIUM SULFATE / D5W 1 GM/100 ML BAG IV SCH (12:54)
--- NOTE | 2023-09-17 17:39 | Cardiology Progress Note ---
Date of Service September 17, 2023 Assessment & Plan (1) SVT (supraventricular tachycardia): Plan 1. SVT: He has a well documented SVT. Episodes of supraventricular tachycardia date back a few years. He has never been symptomatic in any regard. He would several episodes this afternoon lasting a few minutes. He was not aware of the events. All of these terminated spontaneously. I do not think there is any need for escalating doses of amiodarone. If he can not be controlled on low doses of amiodarone then the medication should be discontinued. I discussed the option of catheter based therapy again with the patient today. However, as he has not been symptomatic he has no enthusiasm for more aggressive treatment. It is very likely he has been having episodes at his facility that were not clinically apparent given the lack of symptoms. It is unclear that he derives any real benefit from more aggressive therapy in the absence of symptoms. I did explain to him that if he were discovered to have elevated heart rates at [facility] it is very likely he would be sent back to the emergency room. I will discontinue the amiodarone infusion I reduced his daily dose of amiodarone 200 mg daily In the absence of symptoms associated with the SVT, it is unclear if he derives any benefit from more aggressive therapy I would consider discontinuing telemetry Admission and Anticipated Discharge Date Admission Date: September 12, 2023 Subjective This afternoon the patient claimed he feeling well. In fact, he stated he has been feeling better than he has in quite some time. [place] like he was stable for discharge. This afternoon he is several episodes of SVT most of which lasted a few minutes. He was not aware of any symptoms around that time. He specifically denies any breathing difficulty or sense of palpitation. No symptoms of chest pain. Review of Systems Review of Systems: Per HPI Physical Exam Physical Exam: The patient is alert and oriented. Mood and affect appeared normal. He answered all questions appropriately. HEENT: Pupils are equal and reactive to light and accommodation. Extraocular movements are intact. The sclerae are anicteric. Neuro: Cranial nerves intact Lungs: Normal respiratory effort Cardiac: Regular rhythm Pulses: The patient has palpable radial pulses bilaterally that are equal in intensity Extremities: There was no evidence of hypoperfusion. There is no cyanosis or clubbing. Skin: I did not appreciate any rashes on examination today. Results & Data Vital Signs (Past 12 Hours) Vital Signs Temp Pulse Pulse Pulse Resp BP Pulse Ox 09/17/23 14:00 36.7 C 65 18 162/84 H 96 09/17/23 13:00 66 09/17/23 10:19 36.7 C 73 20 147/97 H 96 09/17/23 07:00 68 09/17/23 07:00 36.6 C 63 18 166/98 H 96 09/17/23 06:17 150/90 H O2 Del Method 09/17/23 14:00 Room Air 09/17/23 13:00 09/17/23 10:19 Room Air 09/17/23 07:00 09/17/23 07:00 Room Air 09/17/23 06:17 Laboratory Results Abnormal Lab Results 09/16/23 09/17/23 09/17/23 20:05 06:01 07:03 WBC 6.66 RBC 4.63 L Hgb 14.2 Hct 41.1 L MCV 88.8 MCH 30.7 MCHC 34.5 RDW Std Deviation 39.9 RDW Coeff of Robyn 12.3 Plt Count 204 MPV 9.0 L Sodium 140 Potassium 3.5 Chloride 105 Carbon Dioxide 27 Anion Gap 8 BUN 14 Creatinine 0.67 Est Cr Clr Drug Dosing 119.3 Est GFR ( Amer) 114.4 Est GFR (Non-Af Amer) 98.7 BUN/Creatinine Ratio 20.9 H Glucose 176 H POC Glucose 89 159 H Calcium 8.0 L Magnesium 1.5 L 09/17/23 09/17/23 11:02 16:24 WBC RBC Hgb Hct MCV MCH MCHC RDW Std Deviation RDW Coeff of Robyn Plt Count MPV Sodium Potassium Chloride Carbon Dioxide Anion Gap BUN Creatinine Est Cr Clr Drug Dosing Est GFR ( Amer) Est GFR (Non-Af Amer) BUN/Creatinine Ratio Glucose POC Glucose 240 H 70 Calcium Magnesium PG Care Time/CCT Total # of Minutes Spent Total Time Spent with Patient: Total time spent is greater than 50% in coordination of care (as documented) at patient's floor/unit and/or counseling patient: Coding Level of Care Code 45316 SUB INP/OBS CARE 2/35MIN Diagnoses SVT (supraventricular tachycardia) I47.10
[2023-09-18] MEDS: AMIODARONE 200 MG TAB PO SCH (07:52)
[2023-09-18] MEDS: INSULIN ASPART PER UNIT CHARGE SC SCH ×2 (08:08→12:55)
--- NOTE | 2023-09-18 12:12 | Hospitalist Progress Note ---
Date of Service September 18, 2023 Assessment & Plan (1) Sepsis: Plan: 68-year-old M [from [facility] [place]] with past medical history significant for ambulatory dysfunction on wheelchair because of his hips but can ambulate short distance with assistance, BPH, diabetes, parkinsonism, paroxysmal atrial fibrillation, paroxysmal SVT, prostate cancer, hyperlipidemia, hypertension, UTI, hypothyroidism, frequent falls, chews tobacco, mild cognitive impairment, dilated aortic root presents with confusion and found to have UTI and he had an episode of SVT in the ER. In the ER he had an episode of tachycardic heart rate 140s 150s. Blood pressure was okay. code purple was called. IV adenosine 6 mg was given which converted to sinus rhythm but patient went back into SVT. After couple of doses of IV Lopressor 5mg patient came back into sinus rhythm. Blood pressure has been stable. Complicated UTI Severe Sepsis POA: 04/20 above. Tachy, fever and elevated lactate at presentation. Status post IV fluid, lactate normalized. Urine culture contaminated. Continue with vancomycin 09/11 and Zosyn 09/11 --> Ceftriaxone 09/12. c/wprobiotic. d/w ID 09/16, will transition to bactrim ds at dc to complete 14 day therapy to cover for uti/bacteremia Currently hemodynamically stable, patient reports feeling better. E coli bacteremia: 09/11 blood culture positive for E coli, 09/12 repeat cx [id number]. ID evaled, see above. Metabolic encephalopathy: Likely secondary to acute infection, see above. at baseline now. Follow. Delirium precautions. History of paroxysmal SVT SVT events: Multiple short lasting SVT events, all of which were asymptomatic. EP dex, pt declined catheter based therapy, recommendation is to put him back on amio 200 mg daily and dc telemetry as he has short lasting asymptomatic events. Monitor replete electrolytes. Mild elevation of troponin: Likely demand ischemia secondary to acute illness. Echo reviewed. Other chronic medical conditions: Continue with/resume home meds as and when able. PAF: On amiodarone and Xarelto. Continue. Parkinsonism: Continue home carbidopa/levodopa Ambulatory dysfunction: Mostly wheelchair-bound, can ambulate short distance with assistance of walker. PT/OT when able. Uncontrolled diabetes: critical care educator consult, continue home insulin, glycemic pharmacy consult, PPx: Follow, monitor urinary retention. Prostate cancer: Follows with urology, follow as prior. Hyperlipidemia: Continue with home statin Hypothyroidism: Continue with home Synthroid Hypertension: Continue with home lisinopril DVT prophylaxis: Patient already on Xarelto due to history of A-fib. Disposition: Med/surg, CM working on placement. pt stable medically for dc. d/w cm. Full code Admission and Anticipated Discharge Date Admission Date: September 12, 2023 Subjective Patient was seen and examined at bedside. Patient was sitting up in chair, reports eating ok moving bowels ok. Per RN, no new acute events overnight, had asymptomatic svt episode in am. Physical Exam Physical Exam: General- Not in acute distress Head- atraumatic Eyes- PERRL. ENT- oropharynx moist Neck- supple, no JVD. Lungs- clear to auscultation, no wheezing or crackles. Heart- regular rate and rhythm; no murmur, no gallop. Abdomen- normal bowel sounds, soft, nontender, no distension. Extremities- no pretibial edema, no erythema seen Neuro- tired appearing, oriented x 3; PERRL, no facial palsy; no dysarthria; moves extremities. Results & Data Results & Data Vital Signs (Past 12 Hours) Vital Signs Temp Pulse Pulse Pulse Resp BP Pulse Ox 09/18/23 10:58 36.5 C 82 18 91/62 L 96 09/18/23 07:26 66 09/18/23 07:23 36.5 C 65 18 160/94 H 95 09/18/23 05:00 64 157/84 H 09/18/23 03:26 36.9 C 64 18 187/105 H 95 O2 Del Method 09/18/23 10:58 Room Air 09/18/23 07:26 09/18/23 07:23 Room Air 09/18/23 05:00 09/18/23 03:26 Room Air
[2023-09-18 13:12] LABS: Anion Gap 8 (3-11); BUN Creatinine Ratio 17.6 (10-20); Blood Urea Nitrogen 18 mg/dl (6-23); Calcium 8.8 mg/dl (8.6-10.3); Carbon Dioxide 28 mmol/L (21-32); Chloride 99 mmol/L (98-107); Creatinine Clr Calc Pharmacy 78.3 ml/min; Est GFR (African American) 87.1 ml/min; Est GFR (Non-African American) 75.2 ml/min; Glucose 346 mg/dl (70-99(Fasting)); Magnesium 1.8 mg/dl (1.7-2.4); Phosphorus 3.8 mg/dl (2.5-4.9); Sodium 135 mmol/L (136-145)
[2023-09-19 08:51] LABS: BUN Creatinine Ratio 21.6 (10-20); Calcium 8.3 mg/dl (8.6-10.3); Est GFR (African American) 109.8 ml/min; Est GFR (Non-African American) 94.8 ml/min; Magnesium 1.5 mg/dl (1.7-2.4); Phosphorus 3.7 mg/dl (2.5-4.9); Potassium 3.7 mmol/L (3.5-5.1)
--- NOTE | 2023-09-19 09:52 | Pharmacy Report ---
Pharmacy Glycemic Short Note 2 - Date of Service September 19, 2023 - Glycemic Short BSG Results (Last 24 hours): 09/18/23 09/18/23 09/18/23 11:02 12:17 16:14 Glucose 346 H* POC Glucose 296 H 182 H 09/18/23 09/19/23 09/19/23 20:33 07:39 07:59 Glucose 163 H POC Glucose 126 H 139 H OUTPATIENT ANTIDIABETIC REGIMEN: * Lantus 25 units SQ qAM * Aspart 6 units TID before meals plus sliding scale (sliding scale details on med rec) * A1c = 8.1% ASSESSMENT: 09/18 * 44 units SQ insulin given over last 24 hrs while ordered a diet, but CHO content of meals fairly low per survey field technician * Fasting BSG at goal again today, FBS 139, with 30 units basal on board - will continue * Post-prandial BSGs at goal for 2 of 3 meals yesterday. Of note, pt did have crackers yesterday AM that were not covered with rapid acting insulin. His BSG pattern does suggest he needs larger prandial insulin doses with breakfast vs other meals. As a result, his Novolog CF/CR have been adjusted to provide just this. 09/16 * Patient received total of 79 units of insulin yesterday, of which 35 units were basal insulin * Fasting BSG much improved, 159 mg/dL this AM - may scale back to 30 units * BSGs trending down yesterday afternoon below goal, will loosen CF/CR slightly 09/15 * Patient's blood sugars above goal last 48 hours, despite tightening CF/CR and increasing Lantus yesterday morning. * Continue to titrate Lantus dose up and tighten CF/CR further at this time. 09/12 * Lars is a 68 yo T2DM who presented with confusion, fever, hyperglycemia and suspected UTI. * BSGs remain significantly elevated, however they are trending downward. * His home dose of Lantus was continued on admission. Will continue this for now. May consider additional dose at bedtime if BSG remains significantly elevated. * Will tighten NovoLog parameters and order overnight checks at 00 and 04. PLAN FOR INPATIENT GLYCEMIC CONTROL: * Basal insulin * Lantus 30 units SQ qAM * Bolus insulin * NovoLog per scale ACHS or Q6hrs while NPO * Goal Range: Low 120 mg/dL - High 150 mg/dL * Correction Factor: Breakfast: 15 mg/dL/unit; Lunch + Dinner and HS: 30mg/dL/unit * Nutritional / Prandial insulin per carb ratio: Breakfast: 1 unit per 4 grams CHO consumed; Lunch + Dinner and HS: 1 unit per 9 grams CHO consumed
--- NOTE | 2023-09-19 13:19 | Hospitalist Progress Note ---
Date of Service September 19, 2023 Assessment & Plan (1) Sepsis: Plan: 68-year-old M [from [facility]] with past medical history significant for ambulatory dysfunction on wheelchair because of his hips but can ambulate short distance with assistance, BPH, diabetes, parkinsonism, paroxysmal atrial fibrillation, paroxysmal SVT, prostate cancer, hyperlipidemia, hypertension, UTI, hypothyroidism, frequent falls, chews tobacco, mild cognitive impairment, dilated aortic root presents with confusion and found to have UTI and he had an episode of SVT in the ER. In the ER he had an episode of tachycardic heart rate 140s 150s. Blood pressure was okay. code purple was called. IV adenosine 6 mg was given which converted to sinus rhythm but patient went back into SVT. After couple of doses of IV Lopressor 5mg patient came back into sinus rhythm. Blood pressure has been stable. Complicated UTI Severe Sepsis POA: 04/20 above. Tachy, fever and elevated lactate at presentation. Status post IV fluid, lactate normalized. Urine culture contaminated. Continue with vancomycin 09/11 and Zosyn 09/11 --> Ceftriaxone 09/12. c/wprobiotic. d/w ID 09/16, will transition to bactrim ds at dc to complete 14 day therapy to cover for uti/bacteremia Currently hemodynamically stable, patient reports feeling better. E coli bacteremia: 09/11 blood culture positive for E coli, 09/12 repeat cx [id number]. ID evaled, see above. Metabolic encephalopathy: Likely secondary to acute infection, see above. at baseline now. Follow. Delirium precautions. History of paroxysmal SVT SVT events: Multiple short lasting SVT events, all of which were asymptomatic. EP dex, pt declined catheter based therapy, recommendation is to put him back on amio 200 mg daily and dc telemetry as he has short lasting asymptomatic events. Monitor replete electrolytes. Mild elevation of troponin: Likely demand ischemia secondary to acute illness. Echo reviewed. Other chronic medical conditions: Continue with/resume home meds as and when able. PAF: On amiodarone and Xarelto. Continue. Parkinsonism: Continue home carbidopa/levodopa Ambulatory dysfunction: Mostly wheelchair-bound, can ambulate short distance with assistance of walker. PT/OT when able. Uncontrolled diabetes: unit educator consult, continue home insulin, glycemic pharmacy consult, PPx: Follow, monitor urinary retention. Prostate cancer: Follows with urology, follow as prior. Hyperlipidemia: Continue with home statin Hypothyroidism: Continue with home Synthroid Hypertension: Continue with home lisinopril DVT prophylaxis: Patient already on Xarelto due to history of A-fib. Disposition: Med/surg, CM working on placement. pt stable medically for dc. Full code Admission and Anticipated Discharge Date Admission Date: September 12, 2023 Subjective Patient was seen and examined at bedside. Patient was sitting up in chair, reports eating ok moving bowels ok. no interval events Physical Exam Physical Exam: General- Not in acute distress Head- atraumatic Eyes- PERRL. ENT- oropharynx moist Neck- supple, no JVD. Lungs- clear to auscultation, no wheezing or crackles. Heart- regular rate and rhythm; no murmur, no gallop. Abdomen- normal bowel sounds, soft, nontender, no distension. Extremities- no pretibial edema, no erythema seen Neuro- tired appearing, oriented x 3; PERRL, no facial palsy; no dysarthria; moves extremities. Results & Data Results & Data Vital Signs (Past 12 Hours) Vital Signs Temp Pulse Pulse Resp BP BP Pulse Ox 09/19/23 08:56 69 146/84 H 09/19/23 07:16 36.6 C 64 18 149/89 H 97 O2 Del Method 09/19/23 08:56 09/19/23 07:16 Room Air
[2023-09-19] MEDS: POTASSIUM CHLORIDE CRTAB 20 MEQ TABCR PO STA (13:45)
[2023-09-19] MEDS: MAGNESIUM SULFATE / D5W 1 GM/100 ML BAG IV SCH (13:49)
[2023-09-19] MEDS: MAGNESIUM CHLORIDE W/CALCIUM 64MG DELAYED REL TAB PO SCH (21:15)
[2023-09-20 06:41] LABS: BUN Creatinine Ratio 25.9 (10-20); Calcium 8.2 mg/dl (8.6-10.3); Est GFR (African American) 103.8 ml/min; Est GFR (Non-African American) 89.5 ml/min; Magnesium 1.8 mg/dl (1.7-2.4); Phosphorus 3.6 mg/dl (2.5-4.9)
--- NOTE | 2023-09-20 10:56 | Discharge Summary ---
Date of Service September 20, 2023 Admission HPI Per Admitting Provider 68-year-old male who is from [facility] with past medical history significant for ambulatory dysfunction on wheelchair because of his hips but can ambulate short distance with assistance, BPH, diabetes, parkinsonism, paroxysmal atrial fibrillation, paroxysmal SVT, history of prostate cancer, hyperlipidemia, hypertension,history of UTI, hypothyroidism, history of frequent falls, chews tobacco, mild cognitive impairment, dilated aortic root presents with confusion and found to have UTI and he had an episode of SVT in the ER. Patient's caregiver who is a friend for a long time and takes care of the patient as his family not in the town is in the room and helped with H&P. Per caregiver she was called last night as patient was getting confused and she has advised to check his blood sugar and it was running high . Again today afternoon patient became more confused and lethargic and the reason he was brought in here. Caregiver says since he got fluids he is much more awake. Patient can tell his name. Can tell his date of . Could not tell current date and place. But answers simple questions like states no headache, Denies any blurred visions. Denies sore throat. Denies cough. Denies chest pain. Denies shortness of breath. Denies nausea. Denies abdominal pain. As per caregiver patient can eat regular food. Seems no recent diarrhea. UA came back positive. Lactic is elevated at 3.2. In the ER he had an episode of tachycardic heart rate 140s 150s. Blood pressure was okay. code purple was called. IV adenosine 6 mg was given which converted to sinus rhythm but patient went back into SVT. After couple of doses of IV Lopressor 5mg patient came back into sinus rhythm. Blood pressure has been stable. Past medical history. As mentioned above Past surgical history. left knee surgery, shoulder surgery, total left hip arthroplasty. family history. Mother had cancer. Paternal grandfather had stroke. Social history. She is tobacco 1 can. No alcohol use. No drug use. Admission Exam Per Admitting Provider General- Not in acute distress Head- atraumatic Eyes- PERRL. ENT- oropharynx dry Neck- supple, no JVD. Lungs- clear to auscultation, no wheezing or crackles. Heart- regular rate and rhythm; no murmur, no gallop. Abdomen- normal bowel sounds, soft, nontender, no distension. Extremities- no pretibial edema, no erythema seen Neuro- alert, oriented x 1; PERRL, no facial palsy; no dysarthria; moves extremities. Principal Diagnosis Complicated UTI Severe sepsis POA E. coli bacteremia Metabolic encephalopathy History of paroxysmal SVT, asymptomatic Discharge Exam General- Not in acute distress Head- atraumatic Eyes- PERRL. ENT- oropharynx moist Neck- supple, no JVD. Lungs- clear to auscultation, no wheezing or crackles. Heart- regular rate and rhythm; no murmur, no gallop. Abdomen- normal bowel sounds, soft, nontender, no distension. Extremities- no pretibial edema, no erythema seen Neuro- tired appearing, oriented x 3; PERRL, no facial palsy; no dysarthria; moves extremities. Discharge Data Allergies Allergy/AdvReac Type Severity Reaction Status Date / Time No Known Allergies Allergy Verified 06/25/23 08:37 Consultations 09/12/23 20:25 ED Decision to Admit Stat 09/13/23 08:00 Consult Cardiology Routine 09/13/23 08:44 Consult Infectious Diseases Routine Ordered Studies 09/12/23 18:22 CT head/brain wo con Stat Hospital Course (1) Sepsis: 68-year-old M [from [facility]] with past medical history significant for ambulatory dysfunction on wheelchair because of his hips but can ambulate short distance with assistance, BPH, diabetes, parkinsonism, paroxysmal atrial fibrillation, paroxysmal SVT, prostate cancer, hyperlipidemia, hypertension, UTI, hypothyroidism, frequent falls, chews tobacco, mild cognitive impairment, dilated aortic root presents with confusion and found to have UTI and he had an episode of SVT in the ER. In the ER he had an episode of tachycardic heart rate 140s 150s. Blood pressure was okay. code purple was called. IV adenosine 6 mg was given which converted to sinus rhythm but patient went back into SVT. After couple of doses of IV Lopressor 5mg patient came back into sinus rhythm. Blood pressure has been stable. He was managed for the following: Complicated UTI Severe Sepsis POA: 2/2 above. Tachy, fever and elevated lactate at presentation. Status post IV fluid, lactate normalized. Urine culture contaminated. Continue with vancomycin 09/11 and Zosyn 09/11 --> Ceftriaxone 09/12. c/w probiotic. d/w ID 09/16, will transition to bactrim ds at dc to complete 14 day therapy to cover for uti/bacteremia Currently hemodynamically stable, patient reports feeling better. Pt will dc'd on bactrim ds to complete the course. E coli bacteremia: 09/11 blood culture positive for E coli, 09/12 repeat cx NG. ID evaled, see above. Metabolic encephalopathy: Likely secondary to acute infection, see above. at baseline now. Follow. Delirium precautions. History of paroxysmal SVT SVT events: Multiple short lasting SVT events, all of which were asymptomatic. EP evaled, pt declined catheter based therapy, recommendation is to put him back on amio 200 mg daily and dc telemetry as he has short lasting asymptomatic events. Monitor replete electrolytes. Mild elevation of troponin: Likely demand ischemia secondary to acute illness. Echo reviewed. Other chronic medical conditions: Continue with/resume home meds as and when able. PAF: On amiodarone and Xarelto. Continue. Parkinsonism: Continue home carbidopa/levodopa Ambulatory dysfunction: Mostly wheelchair-bound, can ambulate short distance with assistance of walker. PT/OT when able. Uncontrolled diabetes: it security consultant consult, continue home insulin, glycemic pharmacy consult, PPx: Follow, monitor urinary retention. Prostate cancer: Follows with urology, follow as prior. Hyperlipidemia: Continue with home statin Hypothyroidism: Continue with home Synthroid Hypertension: Continue with home lisinopril DVT prophylaxis: Patient already on Xarelto due to history of A-fib. Disposition: Med/surg, CM working on placement. pt stable medically for dc. Full code Patient is being discharged to SNF with following instruction at the point of discharge: Follow-up with your primary care physician within a week time and likely you will need labs CBC/CMP/magnesium/phosphorus. You were diagnosed with complicated UTI and E. coli bacteremia, you will be discharged on antibiotic to complete 14-day therapy. Continue to take probiotic. Follow-up with your cardiology in 2 to 4 weeks time upon discharge. Take your medications as prescribed. Please make sure that you are able to get your medications today by calling your pharmacy before you leave the hospital so that your treatment continuity is not broken. Home Health Attestation I certify that this patient is under my care and that I, or a physicians customer care assistant working with me, had a face to-face encounter that meets the home health [id number] encounter requirements with this patient. The encounter with the patient was in whole, or in part, for the following medical condition, which is the primary reason for home health care (list medical condition): I certify that, based on my findings, the following services are medically necessary home health services: My clinical findings support the need for the above services because: Further, I certify that my clinical findings support that this patient is homebound (i.e. absences from home require considerable and taxing effort and are for medical reasons or mormon services or infrequently or of short duration when for other reasons) because: Certification for Home Health Services: Based on the above findings, I certify that this patient is confined to the home and needs intermittent residential care, physical therapy and/or speech therapy or continues to need occupational therapy. The patient is under my care, and I have initiated the establishment of the plan of care. This patient will be followed by a physician who will periodically review the plan of care. Total Time Total Time Spent Total Time Spent (In Minutes): 45 Discharge Plan Discharge Items Patient Disposition: Transfer Longterm Fac Reason For Visit: CONFUSION, UTI, SVT Discharge Diagnosis: Complicated UTI Severe sepsis POA E. coli bacteremia Metabolic encephalopathy History of paroxysmal SVT, asymptomatic Condition on Discharge: Serious Activity: Resume your previous activity Non-emergency contact: Primary Care Provider Call non-emergency contact if: you have any medication questions, your symptoms worsen and your temperature is above 101.5 Follow-up/Referrals: Filippo Balelsteros DO [Primary Care Provider] - Diet: Carb Consistent or DM2 and Heart Healthy Diet Texture: Dental soft (bite-sized) Addtl Attending Provider Instructions: Follow-up with your primary care physician within a week time and likely you will need labs CBC/CMP/magnesium/phosphorus. You were diagnosed with complicated UTI and E. coli bacteremia, you will be discharged on antibiotic to complete 14-day therapy. Continue to take probiotic. Follow-up with your cardiology in 2 to 4 weeks time upon discharge. Take your medications as prescribed. Please make sure that you are able to get your medications today by calling your pharmacy before you leave the hospital so that your treatment continuity is not broken. Pending Studies at Discharge: No Stand-Alone Forms: My [facility] Skilled Items Patient informed of condition?: Yes DNR: No Discharge Level of Care: Skilled Communicable Disease: No Discharge Prognosis: Stable Lines: None Urinary Catheter: No Medications and DC Order Prescriptions: New amlodipine [Norvasc] 5 mg Tablet 5 mg PO QAM Qty: 30 0RF magnesium chloride [Mag 64] 64 mg Tablet,Delayed Release (Dr/Ec) 64 mg PO DAILY Qty: 30 0RF Advanced Probiotic 625 mg (10 billion cell) Capsule 1 cap PO DAILY 14 Days Qty: 14 0RF sulfamethoxazole-trimethoprim [Bactrim DS] 800-160 mg tablet 1 tab PO BID 6 Days Qty: 12 0RF Continued (DME) Wheeled Walker Misc See Rx Instructions .Route Qty: 1 0RF Rx Instructions: As directed. with seat if possible (DME) OneTouch Ultra Test Strip See Rx Instructions .Route Qty: 200 11RF Rx Instructions: Test blood sugars 4 time a day (DME) Novofine Autocover 30 gauge x 1/3" needle See Rx Instructions .Route Qty: 200 11RF Rx Instructions: use for insuling injections up to eight times daily insulin glargine [Lantus Solostar U-100 Insulin] 100 unit/mL (3 mL) insulin pen 25 unit subcut QAM Qty: 30 3RF (DME) Manual Wheelchair Device See Rx Instructions .Route Qty: 1 0RF Rx Instructions: As directed tramadol 50 mg tablet 25 mg PO TID PRN (Reason: pain) Qty: 30 0RF (DME) Wheelchair (Manual) Device See Rx Instructions .Route Qty: 1 0RF Rx Instructions: Standard wheelchair with leg rests. [id number] exam on 02/16/23. Estimated length of need: Lifetime. Rytary 36.25-145 mg capsule, extended release 1 cap PO QID 30 Days Qty: 120 3RF Rx Instructions: divide evenly over waking hours insulin aspart U-100 [Novolog FlexPen U-100 Insulin] 100 unit/mL (3 mL) insulin pen 6 unit subcut TIDWMEAL Qty: 30 3RF Rx Instructions: WITH SLIDING SCALE--WITH MEALS & HS--BSG 181-220=1 UNIT, 221-260=2 UNITS, 261-300=3 UNITS, 301-350+=4 UNITS, CALL MD IF > 350. amiodarone 200 mg tablet 200 mg PO DAILY Senna Plus 8.6-50 mg capsule 1 tab-cap PO DAILY docusate sodium 100 mg capsule 100 mg PO DAILY cholecalciferol (vitamin D3) 50 mcg (2,000 unit) capsule 2,000 unit PO DAILY Qty: 90 3RF Xarelto 20 mg tablet 20 mg PO HS Qty: 30 11RF acetaminophen [Tylenol Extra Strength] 500 mg Tablet 1,000 mg PO TID Qty: 90 0RF atorvastatin 40 mg tablet 40 mg PO HS loperamide [Imodium] 2 mg Capsule 2 mg PO Q6H PRN (Reason: Diarrhea) metformin 850 mg tablet 850 mg PO BIDM lisinopril 30 mg tablet 30 mg PO QAM docusate sodium 100 mg Capsule 100 mg PO BID PRN (Reason: Constipation) levothyroxine 125 mcg tablet 125 mcg PO DAILYBB cranberry extract 500 mg capsule 500 mg PO BIDM Rx Instructions: administer with meals Discontinued magnesium oxide 400 mg magnesium tablet 400 mg PO DAILY Qty: 30 11RF Discharge Orders: Discharge Order (Routine); Ordered 09/20/23 Ordered By: Paula Castillo/Other Patient Handouts: Managing Type 2 Diabetes Admission Data Admit Date/Time: 09/12/23 21:02 Attending Provider: Paula Chan Admit Provider: Jose Alfredo Lucio Primary Care Provider: Filippo Ballesteros Other Providers: [place]; Jose Alfredo Lucio; Monty Rodriges; Gui Greco; Richie Melara; Cb Manning I.; Chepe Laird II; Loren Booker; Geraldo Jacques; Oz Espinosa; Dexter Colunga
== END 2023-09-20 15:30 | DRG 871 ==
LOC: ED 17:53 → 2S 21:02 → 3E 09-18 17:55

== ENCOUNTER 2024-01-13 08:32 | Inpatient (IN) ==
[2024-01-13 08:56] LABS: iSTAT Creatinine 0.8 mg/dl (0.6-1.3); iSTAT Hemoglobin 14.3 g/dl (14.0-18.0); iSTAT Ionized Calcium 1.09 mmol/l (1.12-1.32); iSTAT Potassium 3.5 mmol/L (3.3-5.0)
[2024-01-13] MEDS: OPTIRAY 320 100ml IV ONE (09:01)
--- NOTE | 2024-01-13 09:01 | Emergency Department Note ---
Impression & Plan Acute confusion, COVID-19, Abdominal pain, Generalized weakness, Hypomagnesemia ED Provider Note HISTORY OF PRESENT ILLNESS: Patient is a 68-year-old male presenting with reported confusion. History is obtained from EMS and intermittently from the patient. He reportedly "did not sleep well last night" and his friend called 911 this morning because he "seemed off." Patient states that he has diffuse abdominal pain and was nauseous today. Denies any vomiting or diarrhea. Per report from EMS, the patient's friend was concerned because the patient seemed to be dozing off quite frequently while they were visiting. Patient denies any chest pain or shortness of breath. Denies any recent fevers. Denies any recent falls or head injury. He is alert and oriented and has no complaints on arrival to the ER. ROS: as above PHYSICAL EXAM: Constitutional: Patient appears in no acute distress. HENT: Head: Normocephalic and atraumatic. Eyes: EOMI, PERRL Mouth/Throat: Mucous membranes moist. Neck: Trachea midline. Neck supple. Cardiovascular: RRR, No murmurs, rubs or gallops. Intact distal pulses. Pulmonary/Chest: No respiratory distress. Breath sounds clear and equal bilaterally. No wheezes or rales. No chest wall tenderness to palpation. Abdominal: Abdomen soft, no tenderness, rebound or guarding. Musculoskeletal: No edema, tenderness or deformity noted. Skin: Warm and dry. No rash, erythema, pallor or cyanosis Psychiatric: Appropriate mood and affect for situation. Neurological: Alert and keenly responsive. CN II-XII grossly intact, moving all extremities equally and fully. MDM: - Vitals signs showed hypertension. - History obtained via patient. History as above. - Chronic conditions affecting care: HTN; obesity; cardiomyopathy; CVA; DM-2; HLD; Afib - Differential diagnoses include, but are not limited to: CVA; intracranial hemorrhage; ACS; pneumonia; UTI; electrolyte abnormality; viral syndrome - Order placed for continuous cardiac monitoring. At this time, monitor showed rate of 76 bpm with normal sinus rhythm, per my interpretation. - External medical records reviewed. Discharge summary dated 09/2023 was reviewed. Patient was admitted that time for complicated UTI and severe sepsis secondary to E. coli bacteremia. - EKG interpreted by myself showed normal sinus rhythm. Rate 75 bpm. QT 430. No acute ischemic changes. Noted have a right bundle branch block. - Laboratory workup interpreted by myself showed normal WBC; normal PT/INR; stable electrolytes other than hypomagnesemia (Mg 1.3); normal troponin; normal lipase - CXR negative for pneumonia, per my interpretation. - VBG normal - CT head wo contrast negative for acute pathology - CT abdomen/pelvis with IV contrast negative for acute pathology - Viral respiratory panel positive for COVID-19. - Patient given 1g IV magnesium for electrolyte replacement. - UA ordered, but patient not able to give a sample and family is refusing a straight cath. - Patient reports he does not feel comfortable going home given his weakness and family is concerned for his persistent confusion. - Discussion was had with welfare case worker about patient's case and need for admission - Hospitalist consulted for admission - [facility] ASSESSMENT AND PLAN: Diagnosis: COVID-19; acute confusion; abdominal pain; generalized weakness; hypomagnesemia Plan: Admit Past Med/Surg History Problem List (Updated 01/13/24 @ 14:18 by Merary Louise MD) Hypomagnesemia (Acute) Generalized weakness (Acute) Abdominal pain (Acute) COVID-19 (Acute) Acute confusion (Acute) Acute constipation (Acute) Acute alteration in mental status (Acute) [facility] resident Complicated UTI (urinary tract infection) Sepsis Hypomagnesemia (Acute) Fever (Acute) SVT (supraventricular tachycardia) (Acute) Hypertension (Acute) Acute UTI (Acute) Acute confusion (Acute) History of total left hip arthroplasty 12-20-21 Left Total Hip Arthroplasty-Uncemented(Left) - Jeremy Baker DO S/P ORIF (open reduction internal fixation) fracture Rip hip 06/2022, cannulated screws x3 Falls frequently Lower urinary tract symptoms Parkinsonism Paroxysmal A-fib (07/2020) Paroxysmal SVT (supraventricular tachycardia) Osteoporosis Subcapital fracture of right hip UTI (urinary tract infection) Closed right hip fracture Contusion of buttock (Acute) Dyslipidemia Hospital discharge follow-up Constipation Lumbar back pain Multiple bruises (Acute) Fecal soiling COVID-19 (Acute) Effusion, left knee Cerebrovascular disease Uncontrolled type 2 diabetes mellitus with neurologic complication, with long- term current use of insulin Prostate cancer Arthritis of both hips Left hip pain Fall (Acute) Hypomagnesemia (Acute) Hypokalemia Gait apraxia Ambulatory dysfunction Left knee DJD Cardiomyopathy (07/2020) Insomnia Seborrheic dermatitis of scalp Vitamin D deficiency History of alcoholism Left knee pain (Acute) Chews tobacco Obesity, diabetes, and hypertension syndrome Dermatitis Hypoglycemia (Acute) Medical History Tubular adenoma of colon Pulmonary nodule Leah's thyroiditis Erectile dysfunction Dilated aortic root Adult situational stress disorder Cognitive impairment Type 2 diabetes mellitus Closed head injury BPH with urinary obstruction Renal cyst Renal lesion Acute blood loss anemia Subcapital fracture of left hip Weakness Mild cognitive impairment Rash Acute respiratory failure with hypoxemia 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 Acute encephalopathy Collapse Hypoglycemia Septic prepatellar bursitis (07/2020) Sore throat Hypothyroidism History of prostate cancer Surgical History History of shoulder surgery Left History of left knee surgery Family History Mother Cancer Grandmother (Paternal) Stroke Grandfather (Paternal) Stroke Other Myocardial infarction Denies family history of Ovarian cancer Prostate cancer Breast cancer Colorectal cancer Social History Smoking Status: Former smoker Tobacco Type: Smokeless Tobacco (Dip or Chew) Age Started Using Tobacco: 16; Age Quit Using Tobacco: 26; Do You Dip or Chew Tobacco: Yes; Hx Alcohol Use: No Hx Substance Use: No Preferred Language: Mosotho Communication Ability: Effective Communication Ability Comment: unable to obtain d/t patien condition. 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 Beliefs That Will Affect Care: None marital status: Single Current Living Situation: Halfway Current Living Situation Comment: [facility] current occupational status: retired current occupation: [employer] How many Children do You have: 0 Feels Safe at Home: Yes Childhood Exposure to Second-Hand Smoke: Yes Diet: diabetic caffeine: Yes (iced tea ) Dental Care, Regularly: No Physical Activity Frequency: Does not Exercise Seatbelt Use: always Sunscreen Use: No Assistive Devices: Walker and Wheelchair Allergies Allergies Allergy/AdvReac Type Severity Reaction Status Date / Time No Known Allergies Allergy Verified 12/13/23 13:21 Home Meds Home Medications Medication Instructions Recorded Confirmed amiodarone 200 mg tablet 200 mg PO DAILY 09/04/22 01/13/24 docusate sodium 100 mg capsule 100 mg PO DAILY 11/17/22 01/13/24 atorvastatin 40 mg tablet 40 mg PO HS 02/16/23 01/13/24 sennosides 8.6 mg-docusate sodium 1 tab-cap PO DAILY 02/16/23 01/13/24 50 mg capsule (Senna Plus) cranberry extract 500 mg capsule 500 mg PO BIDM 09/12/23 01/13/24 levothyroxine 125 mcg tablet 125 mcg PO DAILYBB 09/12/23 01/13/24 lisinopril 30 mg tablet 30 mg PO QAM 09/12/23 01/13/24 loperamide 2 mg capsule 2 mg PO Q6H PRN Diarrhea 09/12/23 01/13/24 metformin 850 mg tablet 850 mg PO BIDM 09/12/23 01/13/24 Saccharomyces boulardii 250 mg 250 mg PO BID 11/20/23 01/13/24 capsule (Florastor) insulin aspart U-100 100 unit/mL 1 sliding scale dose subcut 01/13/24 01/13/24 (3 mL) subcutaneous pen (Novolog USEASDIRECTD FlexPen U-100 Insulin aspart) insulin glargine 100 unit/mL (3 10 unit subcut PM 01/13/24 01/13/24 mL) subcutaneous pen (Lantus Solostar U-100 Insulin) insulin glargine 100 unit/mL (3 30 unit subcut QAM 01/13/24 01/13/24 mL) subcutaneous pen (Lantus Solostar U-100 Insulin) nicotine 14 mg/24 hr daily 1 patch transdermal QAM 01/13/24 01/13/24 transdermal patch nystatin 100,000 unit/gram topical 1 applic topical BID 01/13/24 01/13/24 cream Previous Rx's Medication Instructions Recorded Devonte Melton #1 ea 03/21/21 cholecalciferol (vitamin D3) 50 2,000 unit PO DAILY #90 caps 01/23/22 mcg (2,000 unit) capsule rivaroxaban 20 mg tablet (Xarelto) 20 mg PO HS #30 tabs 01/23/22 acetaminophen 500 mg tablet 1,000 mg (2 x 500 mg) PO TID #90 06/20/22 (Tylenol Extra Strength) tabs blood sugar diagnostic (OneTouch #200 ea 11/02/22 Ultra Test strips) Wheelchair (Manual) (Manual #1 ea 01/02/23 Wheelchair) tramadol 50 mg tablet 25 mg (1/2 x 50 mg) PO TID PRN 02/19/23 pain #30 tabs Wheelchair (Manual) #1 ea 02/21/23 insulin aspart U-100 100 unit/mL 6 unit (0.06 mL) subcut TIDWMEAL 07/09/23 (3 mL) subcutaneous pen (Novolog #30 mL FlexPen U-100 Insulin aspart) amlodipine 5 mg tablet (Norvasc) 5 mg PO QAM #30 tabs 09/20/23 magnesium chloride 64 mg 64 mg PO DAILY #30 tabs 09/20/23 (magnesium chloride) tablet,delayed release (Mag 64) carbidopa ER 36.25 mg-levodopa 145 1 cap PO QID 30 days #120 caps 11/09/23 mg capsule,extended release (Rytary) pen needle, diabetic, safety 30 #200 ea 12/14/23 gauge x 1/3" Results & Data (ED) Vital Signs Vital Signs - 24 hr 01/13/24 08:37 01/13/24 10:16 01/13/24 10:19 Temperature 36.9 C Temperature Source Oral Pulse Rate 74 65 Pulse Rate [Apical] 72 Respiratory Rate 16 Respiratory Effort / Characteristics Non-Labored Spontaneous Respiratory Depth Normal Blood Pressure 167/99 H Blood Pressure [Right Arm] 159/91 H Blood Pressure Mean 121 Blood Pressure Mean [Right Arm] 113 Pulse Oximetry 95 Oxygen Delivery Method Room Air Sepsis Recent Fever Within 48 Hours No Sepsis New/Unexplained Change in Mental Status No Sepsis Action Taken by Nursing No Action Required 01/13/24 12:00 Temperature Temperature Source Pulse Rate Pulse Rate [Apical] 76 Respiratory Rate 18 Respiratory Effort / Characteristics Respiratory Depth Blood Pressure Blood Pressure [Right Arm] 166/96 H Blood Pressure Mean Blood Pressure Mean [Right Arm] 119 Pulse Oximetry 96 Oxygen Delivery Method Room Air Sepsis Recent Fever Within 48 Hours Sepsis New/Unexplained Change in Mental Status Sepsis Action Taken by Nursing Laboratory Data 01/13/24 08:40 01/13/24 08:40 Lab Results 01/13/24 01/13/2401/12/24 Range/Units 08:40 08:44 08:54 WBC 7.76 (4.8-10.8) K/ul RBC 4.73 (4.70-6.10) M/uL Hgb 14.5 (14.0-18.0) g/dl POC Hgb 14.3 (14.0-18.0) g/dl Hct 42.0 (42.0-52.0) % POC Hct 42 (42-52) % MCV 88.8 (80.0-100.0) fL MCH 30.7 (25.0-34.0) pg MCHC 34.5 (32.0-36.0) g/dL RDW Std Deviation 41.2 (36.4-46.3) fL RDW Coeff of Robyn 12.8 (11.5-14.5) % Plt Count 158 (130-400) K/uL MPV 9.4 (9.4-12.4) fL Immature Gran % (Auto) 0.3 % Neut % (Auto) 66.8 % Lymph % (Auto) 16.2 % [place] % (Auto) 13.9 % Eos % (Auto) 2.2 % Baso % (Auto) 0.6 % Neut # (Auto) 5.18 (1.40-6.50) K/uL Lymph # (Auto) 1.26 (1.20-3.40) K/uL [place] # (Auto) 1.08 H (0.11-0.59) K/uL Eos # (Auto) 0.17 (0.00-0.50) K/uL Baso # (Auto) 0.05 (0.00-0.20) K/uL Immature Gran # (Auto) 0.02 (0.01-0.20) K/uL PT 12.0 (9.0-12.0) Seconds INR 1.1 (0.9-1.1) VBG pH (7.36-7.41) VBG pCO2 (38-50) mmHg VBG pO2 mmHg VBG HCO3 mmol/L VBG O2 Saturation % VBG Base Excess mEq/L POC Sodium 139 (135-144) mmol/L Sodium 138 (136-145) mmol/L POC Potassium 3.5 (3.3-5.0) mmol/L Potassium 3.6 (3.5-5.1) mmol/L POC Chloride 100 L (101-112) mmol/L Chloride 104 (98-107) mmol/L Carbon Dioxide 27 (21-32) mmol/L POC Total CO2 24 (24-31) mmol/L Anion Gap 7 (3-11) POC Anion Gap 20.0 (16-25) mmol/L POC BUN 12 (7-18) mg/dl BUN 12 (6-23) mg/dl Creatinine 0.72 (0.6-1.4) mg/dl POC Creatinine 0.8 (0.6-1.3) mg/dl Est Cr Clr Drug Dosing 121.5 ml/min eGFR 99.51 BUN/Creatinine Ratio 16.7 (10-20) Glucose 124 H (70-99(Fasting)) mg/dl POC Glucose (other) 131 H (70-99) mg/dl Lactate 0.8 (0.4-2.0) mmol/L Calcium 8.6 (8.6-10.3) mg/dl POC Ioniz Calcium Ruperto 1.09 L (1.12-1.32) mmol/l Magnesium 1.3 L (1.7-2.4) mg/dl Total Bilirubin 0.7 (0.2-1.0) mg/dl AST 13 (13-39) U/L ALT 7 (7-52) U/L Alkaline Phosphatase 71 (34-104) U/L Troponin I High Sens 8.6 (0-20) pg/ml Total Protein 6.8 (6.0-8.3) gm/dl Albumin 4.0 (3.4-5.0) gm/dl Globulin 2.8 (2.5-4.0) gm/dl Albumin/Globulin Ratio 1.4 (0.9-2) Lipase 13 (11-82) U/L Adenovirus (PCR) Not Detected (NotDetected) B. pertussis DNA (PCR) Not Detected (NotDetected) B.parapertussis DNA PCR Not Detected (NotDetected) C. pneumoniae DNA (PCR) Not Detected (NotDetected) Coronavirus OC43 (PCR) Not Detected (NotDetected) Coronavirus HKU1 (PCR) Not Detected (NotDetected) Coronavirus 229E (PCR) Not Detected (NotDetected) SARS-CoV-2 (PCR) DETECTED A (NotDetected) Coronavirus NL63 (PCR) Not Detected (NotDetected) Human Metapneumovir PCR Not Detected (NotDetected) Influenza Type A (PCR) Not Detected (NotDetected) Influenza Type B (PCR) Not Detected (NotDetected) M. pneumoniae (PCR) Not Detected (NotDetected) Parainfluenza 1 (PCR) Not Detected (NotDetected) Parainfluenza 2 (PCR) Not Detected (NotDetected) Parainfluenza 3 (PCR) Not Detected (NotDetected) Parainfluenza 4 (PCR) Not Detected (NotDetected) RSV (PCR) Not Detected (NotDetected) Entero/Rhino (PCR) Not Detected (NotDetected) 01/13/24 Range/Units 10:54 WBC (4.8-10.8) K/ul RBC (4.70-6.10) M/uL Hgb (14.0-18.0) g/dl POC Hgb (14.0-18.0) g/dl Hct (42.0-52.0) % POC Hct (42-52) % MCV (80.0-100.0) fL MCH (25.0-34.0) pg MCHC (32.0-36.0) g/dL RDW Std Deviation (36.4-46.3) fL RDW Coeff of Robyn (11.5-14.5) % Plt Count (130-400) K/uL MPV (9.4-12.4) fL Immature Gran % (Auto) % Neut % (Auto) % Lymph % (Auto) % [place] % (Auto) % Eos % (Auto) % Baso % (Auto) % Neut # (Auto) (1.40-6.50) K/uL Lymph # (Auto) (1.20-3.40) K/uL [place] # (Auto) (0.11-0.59) K/uL Eos # (Auto) (0.00-0.50) K/uL Baso # (Auto) (0.00-0.20) K/uL Immature Gran # (Auto) (0.01-0.20) K/uL PT (9.0-12.0) Seconds INR (0.9-1.1) VBG pH 7.41 (7.36-7.41) VBG pCO2 45 (38-50) mmHg VBG pO2 32 mmHg VBG HCO3 29 mmol/L VBG O2 Saturation < 60.0 % VBG Base Excess 3.2 mEq/L POC Sodium (135-144) mmol/L Sodium (136-145) mmol/L POC Potassium (3.3-5.0) mmol/L Potassium (3.5-5.1) mmol/L POC Chloride (101-112) mmol/L Chloride (98-107) mmol/L Carbon Dioxide (21-32) mmol/L POC Total CO2 (24-31) mmol/L Anion Gap (3-11) POC Anion Gap (16-25) mmol/L POC BUN (7-18) mg/dl BUN (6-23) mg/dl Creatinine (0.6-1.4) mg/dl POC Creatinine (0.6-1.3) mg/dl Est Cr Clr Drug Dosing ml/min eGFR BUN/Creatinine Ratio (10-20) Glucose (70-99(Fasting)) mg/dl POC Glucose (other) (70-99) mg/dl Lactate (0.4-2.0) mmol/L Calcium (8.6-10.3) mg/dl POC Ioniz Calcium Ruperto (1.12-1.32) mmol/l Magnesium (1.7-2.4) mg/dl Total Bilirubin (0.2-1.0) mg/dl AST (13-39) U/L ALT (7-52) U/L Alkaline Phosphatase (34-104) U/L Troponin I High Sens (0-20) pg/ml Total Protein (6.0-8.3) gm/dl Albumin (3.4-5.0) gm/dl Globulin (2.5-4.0) gm/dl Albumin/Globulin Ratio (0.9-2) Lipase (11-82) U/L Adenovirus (PCR) (NotDetected) B. pertussis DNA (PCR) (NotDetected) B.parapertussis DNA PCR (NotDetected) C. pneumoniae DNA (PCR) (NotDetected) Coronavirus OC43 (PCR) (NotDetected) Coronavirus HKU1 (PCR) (NotDetected) Coronavirus 229E (PCR) (NotDetected) SARS-CoV-2 (PCR) (NotDetected) Coronavirus NL63 (PCR) (NotDetected) Human Metapneumovir PCR (NotDetected) Influenza Type A (PCR) (NotDetected) Influenza Type B (PCR) (NotDetected) M. pneumoniae (PCR) (NotDetected) Parainfluenza 1 (PCR) (NotDetected) Parainfluenza 2 (PCR) (NotDetected) Parainfluenza 3 (PCR) (NotDetected) Parainfluenza 4 (PCR) (NotDetected) RSV (PCR) (NotDetected) Entero/Rhino (PCR) (NotDetected) Administered Medications Discontinued Medications Ioversol (Optiray 320 100ml) 94 ml IV ONCE ONE Stop: 01/13/24 09:02 Last Admin: 01/13/24 09:01 Dose: 94 ml Documented By: [facility] Imaging Data Radiologist's Impression: Chest X-Ray 01/13/24 08:43 SINGLE VIEW CHEST CLINICAL HISTORY: Change in mental status. FINDINGS: An AP, portable, upright chest radiograph is compared to study dated 01/03/2024. The examination is degraded by portable technique and patient rotation. The heart is enlarged noting atherosclerotic calcification of the thoracic aorta. The pulmonary vasculature is nondistended congested. Chronic interstitial thickening is similar to previous. There is bibasilar scarring/atelectasis. No airspace consolidation or large pleural effusion is identified. No pneumothorax is seen. The skeletal structures are osteopenic. The bony thorax is grossly intact. Arthritic change is seen in the shoulders. IMPRESSION: Cardiomegaly with no active disease in the chest. ACT 112: Negative or not required by law. Electronically signed by: Brenton Cid M.D. 01/13/2024 9:[address] 01/13/24 08:43 CT SCAN OF THE BRAIN WITHOUT IV CONTRAST CLINICAL HISTORY: Change in mental status. COMPARISON STUDY: CT of the brain dated 01/03/2024. TECHNIQUE: Unenhanced axial CT scan of the brain is performed from the vertex to the skull base. A dose lowering technique was utilized adhering to the principles of ALARA. FINDINGS: Brain parenchyma: There is age-advanced involutional change noting moderate to advanced confluent subcortical and periventricular microangiopathic disease. There is no hemorrhage, mass effect, or evidence of acute territorial ischemia by CT criteria. Irving-white matter differentiation is preserved. No extra-axial fluid collection is seen. Ventricles, sulci, cisterns: Prominent secondary to involutional change. Intracranial vasculature: There is atherosclerotic calcification of the cavernous carotid arteries. Calvarium: Unremarkable. Sinuses and mastoids: There is trace mucosal thickening within the maxillary, ethmoid, and sphenoid sinuses. The mastoid air cells are well pneumatized. Orbits: The bony orbits are grossly intact. IMPRESSION: There is no hemorrhage, mass effect, or evidence of acute territorial ischemia by CT criteria. ACT 112: Negative or not required by law. Electronically signed by: Brenton Cid M.D. 01/13/2024 9:17 AM Abdomen/Pelvis CT 01/13/24 08:58 CT SCAN OF THE ABDOMEN AND PELVIS WITH IV CONTRAST CLINICAL HISTORY: Generalized abdominal pain. COMPARISON STUDY: Abdominal CT dated 12/26/2021. TECHNIQUE: Following the IV administration of 94 cc of Optiray 320, CT scan of the abdomen and pelvis is performed from the lung bases to the proximal femora. Images are reviewed in the axial, sagittal, and coronal planes. IV contrast was administered without complication. A dose lowering technique was utilized adhering to the principles of ALARA. There is streak artifact from the arms which could not be elevated above the abdomen. There is also motion artifact. CT DOSE: 2385.34 mGy.cm FINDINGS: Lung bases: The heart is enlarged and without pericardial effusion. The coronary arteries are densely calcified. The lung bases are clear noting dependent scarring/atelectasis. Liver: The contrast-enhanced liver is normal in size, contour, and attenuation. There is no intrahepatic biliary ductal dilatation. The hepatic veins and portal veins are patent. Gallbladder: Unremarkable. Spleen: Normal in size and attenuation. Pancreas: Moderately atrophic and grossly unremarkable. Adrenal glands: Unremarkable. Kidneys: The contrast enhanced kidneys are normal in size and without hydronephrosis. The kidneys enhance symmetrically. Right renal cyst measuring up to 2.0 cm. Abdominal vasculature: The abdominal aorta is normal in course and caliber noting mild to moderate atherosclerotic calcification. Bowel: There is rectosigmoid fecal retention and moderate constipation. No bowel obstruction is seen. The appendix is well-visualized and normal. Peritoneum: There is no intraperitoneal free air or abdominal ascites. There are fat-containing umbilical and supraumbilical hernias. Lymphadenopathy: None. Pelvic viscera: Evaluation of the pelvis is degraded by streak artifact from orthopedic hardware in the hips. The prostate gland is diminutive and heterogeneous noting brachytherapy implants in place. The bladder is distended, and the wall appears thickened/trabeculated indicating chronic outlet obstruction. Skeletal structures: The skeletal structures are osteopenic. No lytic or blastic lesions are seen. Sclerotic change is noted in the sacroiliac joints and pubic symphysis. There is mild lumbosacral spondylosis. A left hip arthroplasty is in place. There are chronic/healed left-sided rib fractures. There is chronic deformity of the right proximal femur with intertrochanteric lag screws in place. IMPRESSION: 1. No acute infectious or inflammatory findings are identified in the abdomen or pelvis. 2. Rectosigmoid fecal retention and moderate constipation. 3. Cardiomegaly noting coronary artery atherosclerosis. 4. Additional findings as above. ACT 112: Negative or not required by law. Electronically signed by: Brenton Cid M.D. 01/13/2024 10:37 AM Discharge Plan Visit Data Chief Complaint: Confusion Stated Complaint: WEAKNESS, CONFUSION ED Provider: Merary Louise Discharge Problem: Acute confusion, COVID-19, Abdominal pain, Generalized weakness, Hypomagnesemia Forms Stand Alone Forms: [facility] Prescriptions Prescriptions: No Action (DME) Wheeled Walker Misc See Rx Instructions .Route Qty: 1 0RF Rx Instructions: As directed. with seat if possible (DME) OneTouch Ultra Test Strip See Rx Instructions .Route Qty: 200 11RF Rx Instructions: Test blood sugars 4 time a day (DME) Manual Wheelchair Device See Rx Instructions .Route Qty: 1 0RF Rx Instructions: As directed tramadol 50 mg tablet 25 mg PO TID PRN (Reason: pain) Qty: 30 0RF (DME) Wheelchair (Manual) Device See Rx Instructions .Route Qty: 1 0RF Rx Instructions: Standard wheelchair with leg rests. [id number] exam on 02/16/23. Estimated length of need: Lifetime. insulin aspart U-100 [Novolog FlexPen U-100 Insulin] 100 unit/mL (3 mL) insulin pen 6 unit subcut TIDWMEAL Qty: 30 3RF Rytary 36.25-145 mg capsule, extended release 1 cap PO QID 30 Days Qty: 120 3RF Rx Instructions: divide evenly over waking hours (DME) Novofine Autocover 30 gauge x 1/3" needle See Rx Instructions .Route Qty: 200 11RF Rx Instructions: use for insuling injections up to eight times daily amiodarone 200 mg tablet 200 mg PO DAILY Saccharomyces boulardii [Florastor] 250 mg capsule 250 mg PO BID Senna Plus 8.6-50 mg capsule 1 tab-cap PO DAILY docusate sodium 100 mg capsule 100 mg PO DAILY cholecalciferol (vitamin D3) 50 mcg (2,000 unit) capsule 2,000 unit PO DAILY Qty: 90 3RF Xarelto 20 mg tablet 20 mg PO HS Qty: 30 11RF acetaminophen [Tylenol Extra Strength] 500 mg Tablet 1,000 mg PO TID Qty: 90 0RF atorvastatin 40 mg tablet 40 mg PO HS nicotine 14 mg/24 hr Patch 24 Hour 1 patch TRANSDERMAL QAM nystatin 100,000 unit/gram Cream 1 applic TOPICAL BID Rx Instructions: apply to affected area bid until clear insulin aspart U-100 [Novolog FlexPen U-100 Insulin] 100 unit/mL (3 mL) Insulin Pen 1 sliding scale dose SUBCUT USEASDIRECTD Rx Instructions: <150=0u; 151-200=2u; 251-300=4u; 301-350=6u; 351-400=8u; greater than 450 call MD @0800, 1200, 1600, 2000 insulin glargine [Lantus Solostar U-100 Insulin] 100 unit/mL (3 mL) Insulin Pen 10 unit SUBCUT PM insulin glargine [Lantus Solostar U-100 Insulin] 100 unit/mL (3 mL) insulin pen 30 unit subcut QAM loperamide 2 mg Capsule 2 mg PO Q6H PRN (Reason: Diarrhea) metformin 850 mg tablet 850 mg PO BIDM lisinopril 30 mg tablet 30 mg PO QAM levothyroxine 125 mcg tablet 125 mcg PO DAILYBB cranberry extract 500 mg capsule 500 mg PO BIDM Rx Instructions: administer with meals amlodipine [Norvasc] 5 mg Tablet 5 mg PO QAM Qty: 30 0RF magnesium chloride [Mag 64] 64 mg Tablet,Delayed Release (Dr/Ec) 64 mg PO DAILY Qty: 30 0RF Referrals Referrals: Filippo Ballesteros DO [Primary Care Provider] -
--- NOTE | 2024-01-13 09:06 | XRay Report ---
SINGLE VIEW CHEST CLINICAL HISTORY: Change in mental status. FINDINGS: An AP, portable, upright chest radiograph is compared to study dated 01/03/2024. The examin ation is degraded by portable technique and patient rotation. The heart is enlarged noting atheroscl erotic calcification of the thoracic aorta. The pulmonary vasculature is nondistended congested. Materials Engineer kaleb interstitial thickening is similar to previous. There is bibasilar scarring/atelectasis. No airsp jd consolidation or large pleural effusion is identified. No pneumothorax is seen. The skeletal stru ctures are osteopenic. The bony thorax is grossly intact. Arthritic change is seen in the shoulders. IMPRESSION: Cardiomegaly with no active disease in the chest. ACT 112: Negative or not required by law. Electronically signed by: Brenton Cid M.D. 01/13/2024 9:04 AM
--- NOTE | 2024-01-13 09:18 | CT Scan Report ---
CT SCAN OF THE BRAIN WITHOUT IV CONTRAST CLINICAL HISTORY: Change in mental status. COMPARISON STUDY: CT of the brain dated 01/03/2024. TECHNIQUE: Unenhanced axial CT scan of the brain is performed from the vertex to the skull base. A do se lowering technique was utilized adhering to the principles of ALARA. FINDINGS: Brain parenchyma: There is age-advanced involutional change noting moderate to advanced confluent sub cortical and periventricular microangiopathic disease. There is no hemorrhage, mass effect, or eviden ce of acute territorial ischemia by CT criteria. Irving-white matter differentiation is preserved. No e xtra-axial fluid collection is seen. Ventricles, sulci, cisterns: Prominent secondary to involutional change. Intracranial vasculature: There is atherosclerotic calcification of the cavernous carotid arteries. Calvarium: Unremarkable. Sinuses and mastoids: There is trace mucosal thickening within the maxillary, ethmoid, and sphenoid s inuses. The mastoid air cells are well pneumatized. Orbits: The bony orbits are grossly intact. IMPRESSION: There is no hemorrhage, mass effect, or evidence of acute territorial ischemia by CT inge gotti. ACT 112: Negative or not required by law. Electronically signed by: Brenton Cid M.D. 01/13/2024 9:17 AM
[2024-01-13 09:31] LABS: Basophils # (auto) 0.05 K/uL (0.00-0.20); Basophils % (auto) 0.6 %; Eosinophils # (auto) 0.17 K/uL (0.00-0.50); Eosinophils % (auto) 2.2 %; Hemoglobin 14.5 g/dl (14.0-18.0); Immature Granulocytes # (auto) 0.02 K/uL (0.01-0.20); Immature Granulocytes % (auto) 0.3 %; Lymphocytes # (auto) 1.26 K/uL (1.20-3.40); Lymphocytes % (auto) 16.2 %; Mean Corpuscular Hemoglobin 30.7 pg (25.0-34.0); Mean Corpuscular Hgb Conc 34.5 g/dL (32.0-36.0); Mean Corpuscular Volume 88.8 fL (80.0-100.0); Mean Platelet Volume 9.4 fL (9.4-12.4); Monocytes # (auto) 1.08 K/uL (0.11-0.59); Monocytes % (auto) 13.9 %; Neutrophils # (auto) 5.18 K/uL (1.40-6.50); Neutrophils % (auto) 66.8 %; Platelet Count 158 K/uL (130-400); RDW Coefficient of Variation 12.8 % (11.5-14.5); RDW Standard Deviation 41.2 fL (36.4-46.3); Red Blood Count 4.73 M/uL (4.70-6.10); White Blood Count 7.76 K/ul (4.8-10.8)
[2024-01-13 09:38] LABS: Albumin Globulin Ratio 1.4 (0.9-2); BUN Creatinine Ratio 16.7 (10-20); Bilirubin,Total 0.7 mg/dl (0.2-1.0); Calcium 8.6 mg/dl (8.6-10.3); Creatinine Clr Calc Pharmacy 121.5 ml/min; Globulin 2.8 gm/dl (2.5-4.0); Magnesium 1.3 mg/dl (1.7-2.4); Potassium 3.6 mmol/L (3.5-5.1); Total Protein 6.8 gm/dl (6.0-8.3)
[2024-01-13 09:39] LABS: INR 1.1 (0.9-1.1)
[2024-01-13 09:43] LABS: Troponin I High Sensitivity 8.6 pg/ml (0-20)
[2024-01-13 09:58] LABS: Adenovirus PCR Not Detected (NotDetected); Bordetella parapertussis PCR Not Detected (NotDetected); Bordetella pertussis PCR Not Detected (NotDetected); Chlamydia pneumoniae PCR Not Detected (NotDetected); Coronavirus 229E PCR Not Detected (NotDetected); Coronavirus CoV-2 (COVID19)PCR DETECTED (NotDetected); Coronavirus HKU1 PCR Not Detected (NotDetected); Coronavirus NL63 PCR Not Detected (NotDetected); Coronavirus OC43PCR Not Detected (NotDetected); Human Metapneumovirus PCR Not Detected (NotDetected); Influenza A PCR Not Detected (NotDetected); Influenza B PCR Not Detected (NotDetected); Mycoplasma pneumoniae PCR Not Detected (NotDetected); Parainfluenza Virus 1 PCR Not Detected (NotDetected); Parainfluenza Virus 2 PCR Not Detected (NotDetected); Parainfluenza Virus 3 PCR Not Detected (NotDetected); Parainfluenza Virus 4 PCR Not Detected (NotDetected); Respiratory Syncytial VirusPCR Not Detected (NotDetected); Rhinovirus/Enterovirus PCR Not Detected (NotDetected)
--- NOTE | 2024-01-13 10:39 | CT Scan Report ---
CT SCAN OF THE ABDOMEN AND PELVIS WITH IV CONTRAST CLINICAL HISTORY: Generalized abdominal pain. COMPARISON STUDY: Abdominal CT dated 12/26/2021. TECHNIQUE: Following the IV administration of 94 cc of Optiray 320, CT scan of the abdomen and pelvi s is performed from the lung bases to the proximal femora. Images are reviewed in the axial, sagittal , and coronal planes. IV contrast was administered without complication. A dose lowering technique wa s utilized adhering to the principles of ALARA. There is streak artifact from the arms which could no t be elevated above the abdomen. There is also motion artifact. CT DOSE: 2385.34 mGy.cm FINDINGS: Lung bases: The heart is enlarged and without pericardial effusion. The coronary arteries are densely calcified. The lung bases are clear noting dependent scarring/atelectasis. Liver: The contrast-enhanced liver is normal in size, contour, and attenuation. There is no intrahepa tic biliary ductal dilatation. The hepatic veins and portal veins are patent. Gallbladder: Unremarkable. Spleen: Normal in size and attenuation. Pancreas: Moderately atrophic and grossly unremarkable. Adrenal glands: Unremarkable. Kidneys: The contrast enhanced kidneys are normal in size and without hydronephrosis. The kidneys enh ance symmetrically. Right renal cyst measuring up to 2.0 cm. Abdominal vasculature: The abdominal aorta is normal in course and caliber noting mild to moderate at herosclerotic calcification. Bowel: There is rectosigmoid fecal retention and moderate constipation. No bowel obstruction is seen. The appendix is well-visualized and normal. Peritoneum: There is no intraperitoneal free air or abdominal ascites. There are fat-containing umbil ical and supraumbilical hernias. Lymphadenopathy: None. Pelvic viscera: Evaluation of the pelvis is degraded by streak artifact from orthopedic hardware in t he hips. The prostate gland is diminutive and heterogeneous noting brachytherapy implants in place. The bladder is distended, and the wall appears thickened/trabeculated indicating chronic outlet obstr uction. Skeletal structures: The skeletal structures are osteopenic. No lytic or blastic lesions are seen. Sc lerotic change is noted in the sacroiliac joints and pubic symphysis. There is mild lumbosacral spond ylosis. A left hip arthroplasty is in place. There are chronic/healed left-sided rib fractures. There is chronic deformity of the right proximal femur with intertrochanteric lag screws in place. IMPRESSION: 1. No acute infectious or inflammatory findings are identified in the abdomen or pelvis. 2. Rectosigmoid fecal retention and moderate constipation. 3. Cardiomegaly noting coronary artery atherosclerosis. 4. Additional findings as above. ACT 112: Negative or not required by law. Electronically signed by: Brenton Cid M.D. 01/13/2024 10:37 AM
[2024-01-13 11:00] LABS: Base Excess VBG 3.2 mEq/L; HCO3 VBG 29 mmol/L; Oxygen Saturation VBG < 60.0 %; PCO2 VBG 45 mmHg (38-50); PO2 VBG 32 mmHg; pH VBG 7.41 (7.36-7.41)
--- NOTE | 2024-01-13 12:20 | Electrocardiogram Report ---
Test Reason : Blood Pressure : */* mmHG Vent. Rate : 75 BPM Atrial Rate : 75 BPM P-R Int : 194 ms QRS Dur : 134 ms QT Int : 430 ms P-R-T Axes : 34 -43 -5 degrees QTcB Int : 480 ms Sinus rhythm with Premature atrial complexes Left axis deviation Right bundle branch block Minimal voltage criteria for LVH, may be normal variant Abnormal ECG When compared with ECG of 03-Jan-2024 14:56, No significant change was found Confirmed by Jeremy Nguyen ([id number]) on 01/13/2024 12:20:32 PM Referred By: Julio [facility] Confirmed By: Jeremy Nguyen
--- NOTE | 2024-01-13 14:12 | History & Physical Report ---
Date of Service January 13, 2024 Assessment & Plan (1) COVID-19: (2) Acute confusion: (3) Generalized weakness: Plan: CT head negative Mostly metabolic encephalopathy secondary to infection/ COVID Hx of parkinsonism and amb. dysfunction however now more weak and lethargic secondary to infection Afebrile WBC wnl lactic acid negative UA - pending blood cultx - pending COVID CXR negative - not hypoxic - positive cough - pt with weakness, lethargy - procalcitonin - pending - remdesivir - guaifenesin Supportive care for covid (4) Hypomagnesemia: Plan: - Mag level 1.3 in ER - replete an monitor (5) Parkinsonism: Plan: - cont. home carvidopa, levodopa (6) Paroxysmal A-fib: Plan: - cont. amiodarone, xarelto Hypertension - on lisinopril - will monitor Hyperlipidemia - on statin (7) Type 2 diabetes mellitus: Plan: - cont. glargine insulin, SSI ACHS - check A1c - glycemic pharmacy consulted (8) Hypothyroidism: Plan: - cont. levothyroxine - check TSH Tobacco use - cont. nicotine patch Ambulatory dysfunction mostly wheelchair can ambulate short distance with assistance of walker PT OT when stable DVT prophylaxis - on Xarelto Disposition telemetry Full code. History of Present Illness Chief Complaint: ams, confusion + Covid Primary Care Provider: Filippo Ballesteros, DO 68 yo M who is from [facility] with hx of DM 2 on insulin, parkinsonism, ambulatory dysfunction on wheelchair (because of his hips but can ambulate short distance with assistance), paroxysmal atrial fibrillation, paroxysmal SVT, hx of prostate cancer, hyperlipidemia, HTN, history of UTI and urosepsis, hypothyroidism, tobacco use, mild cognitive impairment, dilated aortic root presents with confusion and weakness. In the ED pt was found to be positive for COVID. He has hx of urosepsis, UA not obtained in the ED. Pending collection. Blood cultx ordered. CT head, CXR, CT abd./pelvis negative for acute pathology. Patient's caregiver present at the bedside and helps provide history. Yesterday she was with him and he was his usual self, she took him for a ride. However today pt was reported to not act "himself", and very tired and week. Also today he started to have a cough. Pt denies any dysuria or burning w/ urination.Denies any fever, chills, abdominal pain, or nausea. Denies any chest pain or shortness of breath. Allergies Allergy/AdvReac Type Severity Reaction Status Date / Time No Known Allergies Allergy Verified 12/13/23 13:21 Home Medications Medication Instructions Recorded Confirmed Type Wheeled Walker #1 ea 03/21/21 12/13/23 Rx cholecalciferol (vitamin D3) 50 2,000 unit PO DAILY #90 caps 01/23/22 01/13/24 Rx mcg (2,000 unit) capsule rivaroxaban 20 mg tablet (Xarelto) 20 mg PO HS #30 tabs 01/23/22 01/13/24 Rx acetaminophen 500 mg tablet 1,000 mg (2 x 500 mg) PO TID #90 06/20/22 01/13/24 Rx (Tylenol Extra Strength) tabs amiodarone 200 mg tablet 200 mg PO DAILY 09/04/22 01/13/24 History blood sugar diagnostic (OneTouch #200 ea 11/02/22 12/13/23 Rx Ultra Test strips) docusate sodium 100 mg capsule 100 mg PO DAILY 11/17/22 01/13/24 History Wheelchair (Manual) (Manual #1 ea 01/02/23 12/13/23 Rx Wheelchair) atorvastatin 40 mg tablet 40 mg PO HS 02/16/23 01/13/24 History sennosides 8.6 mg-docusate sodium 1 tab-cap PO DAILY 02/16/23 01/13/24 History 50 mg capsule (Senna Plus) tramadol 50 mg tablet 25 mg (1/2 x 50 mg) PO TID PRN 02/19/23 01/13/24 Rx pain #30 tabs Wheelchair (Manual) #1 ea 02/21/23 12/13/23 Rx insulin aspart U-100 100 unit/mL 6 unit (0.06 mL) subcut TIDWMEAL 07/09/23 Rx (3 mL) subcutaneous pen (Novolog #30 mL FlexPen U-100 Insulin aspart) cranberry extract 500 mg capsule 500 mg PO BIDM 09/12/23 01/13/24 History levothyroxine 125 mcg tablet 125 mcg PO DAILYBB 09/12/23 01/13/24 History lisinopril 30 mg tablet 30 mg PO QAM 09/12/23 01/13/24 History loperamide 2 mg capsule 2 mg PO Q6H PRN Diarrhea 09/12/23 01/13/24 History metformin 850 mg tablet 850 mg PO BIDM 09/12/23 01/13/24 History amlodipine 5 mg tablet (Norvasc) 5 mg PO QAM #30 tabs 09/20/23 01/13/24 Rx magnesium chloride 64 mg 64 mg PO DAILY #30 tabs 09/20/23 01/13/24 Rx (magnesium chloride) tablet,delayed release (Mag 64) carbidopa ER 36.25 mg-levodopa 145 1 cap PO QID 30 days #120 caps 11/09/23 01/13/24 Rx mg capsule,extended release (Rytary) Saccharomyces boulardii 250 mg 250 mg PO BID 11/20/23 01/13/24 History capsule (Florastor) pen needle, diabetic, safety 30 #200 ea 12/14/23 Rx gauge x 1/3" insulin aspart U-100 100 unit/mL 1 sliding scale dose subcut 01/13/24 01/13/24 History (3 mL) subcutaneous pen (Novolog USEASDIRECTD FlexPen U-100 Insulin aspart) insulin glargine 100 unit/mL (3 10 unit subcut PM 01/13/24 01/13/24 History mL) subcutaneous pen (Lantus Solostar U-100 Insulin) insulin glargine 100 unit/mL (3 30 unit subcut QAM 01/13/24 01/13/24 History mL) subcutaneous pen (Lantus Solostar U-100 Insulin) nicotine 14 mg/24 hr daily 1 patch transdermal QAM 01/13/24 01/13/24 History transdermal patch nystatin 100,000 unit/gram topical 1 applic topical BID 01/13/24 01/13/24 History cream Past Med/Surg History Problem List (Updated 01/13/24 @ 14:18 by Merary Louise MD) Hypomagnesemia (Acute) Generalized weakness (Acute) Abdominal pain (Acute) COVID-19 (Acute) Acute confusion (Acute) Acute constipation (Acute) Acute alteration in mental status (Acute) long term resident Complicated UTI (urinary tract infection) Sepsis Hypomagnesemia (Acute) Fever (Acute) SVT (supraventricular tachycardia) (Acute) Hypertension (Acute) Acute UTI (Acute) Acute confusion (Acute) History of total left hip arthroplasty 12-20-21 Left Total Hip Arthroplasty-Uncemented(Left) - Jeremy Baker DO S/P ORIF (open reduction internal fixation) fracture Rip hip 06/2022, cannulated screws x3 Falls frequently Lower urinary tract symptoms Parkinsonism Paroxysmal A-fib (07/2020) Paroxysmal SVT (supraventricular tachycardia) Osteoporosis Subcapital fracture of right hip UTI (urinary tract infection) Closed right hip fracture Contusion of buttock (Acute) Dyslipidemia Hospital discharge follow-up Constipation Lumbar back pain Multiple bruises (Acute) Fecal soiling COVID-19 (Acute) Effusion, left knee Cerebrovascular disease Uncontrolled type 2 diabetes mellitus with neurologic complication, with long- term current use of insulin Prostate cancer Arthritis of both hips Left hip pain Fall (Acute) Hypomagnesemia (Acute) Hypokalemia Gait apraxia Ambulatory dysfunction Left knee DJD Cardiomyopathy (07/2020) Insomnia Seborrheic dermatitis of scalp Vitamin D deficiency History of alcoholism Left knee pain (Acute) Chews tobacco Obesity, diabetes, and hypertension syndrome Dermatitis Hypoglycemia (Acute) Medical History Tubular adenoma of colon Pulmonary nodule Leah's thyroiditis Erectile dysfunction Dilated aortic root Adult situational stress disorder Cognitive impairment Type 2 diabetes mellitus Closed head injury BPH with urinary obstruction Renal cyst Renal lesion Acute blood loss anemia Subcapital fracture of left hip Weakness Mild cognitive impairment Rash Acute respiratory failure with hypoxemia 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 Acute encephalopathy Collapse Hypoglycemia Septic prepatellar bursitis (07/2020) Sore throat Hypothyroidism History of prostate cancer Surgical History History of shoulder surgery Left History of left knee surgery Family History Mother Cancer Grandmother (Paternal) Stroke Grandfather (Paternal) Stroke Other Myocardial infarction Denies family history of Ovarian cancer Prostate cancer Breast cancer Colorectal cancer Social History Smoking Status: Former smoker Tobacco Type: Smokeless Tobacco (Dip or Chew) Age Started Using Tobacco: 16; Age Quit Using Tobacco: 26; Do You Dip or Chew Tobacco: Yes; Hx Alcohol Use: No Hx Substance Use: No Preferred Language: Cymraes Communication Ability: Effective Communication Ability Comment: unable to obtain d/t patien condition. 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 Beliefs That Will Affect Care: None marital status: Single Current Living Situation: Senior Care Current Living Situation Comment: [facility] current occupational status: retired current occupation: [employer] How many Children do You have: 0 Feels Safe at Home: Yes Childhood Exposure to Second-Hand Smoke: Yes Diet: diabetic caffeine: Yes (iced tea ) Dental Care, Regularly: No Physical Activity Frequency: Does not Exercise Seatbelt Use: always Sunscreen Use: No Assistive Devices: Walker and Wheelchair Review of Systems Review of Systems: All systems reviewed & are unremarkable except as noted in Subjective Physical Exam Constitutional: WD/WN, vitals as above Eyes: PERRL, conjunctivae normal, anicteric sclerae ENMT: external ear and nose normal, oropharynx normal Neck: supple Respiratory: normal respiratory effort and + cough Auscultation: + rhonchi (minimal); no crackles and no wheezes Cardiovascular: RRR, no murmur, no edema Chest (Breasts): Chest: normal inspection of chest Gastrointestinal (Abdomen): Inspection/Auscultation: abdomen normal to inspection and normal bowel sounds Percussion/Palpation: abdomen soft; abdomen nontender Musculoskeletal: no cyanosis or clubbing, extremities motor strength 5/5 Skin: no rashes, warm and dry Neurologic: PERRL, EOMI, accommodation nl, no face palsy, no dysarthria Psychiatric: A+Ox3, euthymic affect Results & Data Results & Data Vital Signs (Past 12 Hours) Vital Signs Temp Pulse Pulse Resp BP BP Pulse Ox 01/13/24 12:00 76 18 166/96 H 96 01/13/24 10:19 72 159/91 H 01/13/24 10:16 65 01/13/24 08:37 36.9 C 74 16 167/99 H 95 O2 Del Method 01/13/24 12:00 Room Air 01/13/24 10:19 01/13/24 10:16 01/13/24 08:37 Room Air Laboratory Results 1001/13/24 01/13/24 Range/Units 10:54 08:54 08:44 WBC (4.8-10.8) K/ul RBC (4.70-6.10) M/uL Hgb (14.0-18.0) g/dl POC Hgb 14.3 (14.0-18.0) g/dl Hct (42.0-52.0) % POC Hct 42 (42-52) % MCV (80.0-100.0) fL MCH (25.0-34.0) pg MCHC (32.0-36.0) g/dL RDW Std Deviation (36.4-46.3) fL RDW Coeff of Robyn (11.5-14.5) % Plt Count (130-400) K/uL MPV (9.4-12.4) fL Immature Gran % (Auto) % Neut % (Auto) % Lymph % (Auto) % Cavalier % (Auto) % Eos % (Auto) % Baso % (Auto) % Neut # (Auto) (1.40-6.50) K/uL Lymph # (Auto) (1.20-3.40) K/uL Cavalier # (Auto) (0.11-0.59) K/uL Eos # (Auto) (0.00-0.50) K/uL Baso # (Auto) (0.00-0.20) K/uL Immature Gran # (Auto) (0.01-0.20) K/uL PT (9.0-12.0) Seconds INR (0.9-1.1) VBG pH 7.41 (7.36-7.41) VBG pCO2 45 (38-50) mmHg VBG pO2 32 mmHg VBG HCO3 29 mmol/L VBG O2 Saturation < 60.0 % VBG Base Excess 3.2 mEq/L POC Sodium 139 (135-144) mmol/L Sodium (136-145) mmol/L POC Potassium 3.5 (3.3-5.0) mmol/L Potassium (3.5-5.1) mmol/L POC Chloride 100 L (101-112) mmol/L Chloride (98-107) mmol/L Carbon Dioxide (21-32) mmol/L POC Total CO2 24 (24-31) mmol/L Anion Gap (3-11) POC Anion Gap 20.0 (16-25) mmol/L POC BUN 12 (7-18) mg/dl BUN (6-23) mg/dl Creatinine (0.6-1.4) mg/dl POC Creatinine 0.8 (0.6-1.3) mg/dl Est Cr Clr Drug Dosing ml/min eGFR BUN/Creatinine Ratio (10-20) Glucose (70-99(Fasting)) mg/dl POC Glucose (other) 131 H (70-99) mg/dl Lactate (0.4-2.0) mmol/L Calcium (8.6-10.3) mg/dl POC Ioniz Calcium Ruperto 1.09 L (1.12-1.32) mmol/l Magnesium (1.7-2.4) mg/dl Total Bilirubin (0.2-1.0) mg/dl AST (13-39) U/L ALT (7-52) U/L Alkaline Phosphatase (34-104) U/L Troponin I High Sens (0-20) pg/ml Total Protein (6.0-8.3) gm/dl Albumin (3.4-5.0) gm/dl Globulin (2.5-4.0) gm/dl Albumin/Globulin Ratio (0.9-2) Lipase (11-82) U/L Adenovirus (PCR) Not Detected (NotDetected) B. pertussis DNA (PCR) Not Detected (NotDetected) B.parapertussis DNA PCR Not Detected (NotDetected) C. pneumoniae DNA (PCR) Not Detected (NotDetected) Coronavirus OC43 (PCR) Not Detected (NotDetected) Coronavirus HKU1 (PCR) Not Detected (NotDetected) Coronavirus 229E (PCR) Not Detected (NotDetected) SARS-CoV-2 (PCR) DETECTED A (NotDetected) Coronavirus NL63 (PCR) Not Detected (NotDetected) Human Metapneumovir PCR Not Detected (NotDetected) Influenza Type A (PCR) Not Detected (NotDetected) Influenza Type B (PCR) Not Detected (NotDetected) M. pneumoniae (PCR) Not Detected (NotDetected) Parainfluenza 1 (PCR) Not Detected (NotDetected) Parainfluenza 2 (PCR) Not Detected (NotDetected) Parainfluenza 3 (PCR) Not Detected (NotDetected) Parainfluenza 4 (PCR) Not Detected (NotDetected) RSV (PCR) Not Detected (NotDetected) Entero/Rhino (PCR) Not Detected (NotDetected) 01/13/24 Range/Units 08:40 WBC 7.76 (4.8-10.8) K/ul RBC 4.73 (4.70-6.10) M/uL Hgb 14.5 (14.0-18.0) g/dl POC Hgb (14.0-18.0) g/dl Hct 42.0 (42.0-52.0) % POC Hct (42-52) % MCV 88.8 (80.0-100.0) fL MCH 30.7 (25.0-34.0) pg MCHC 34.5 (32.0-36.0) g/dL RDW Std Deviation 41.2 (36.4-46.3) fL RDW Coeff of Robyn 12.8 (11.5-14.5) % Plt Count 158 (130-400) K/uL MPV 9.4 (9.4-12.4) fL Immature Gran % (Auto) 0.3 % Neut % (Auto) 66.8 % Lymph % (Auto) 16.2 % Cavalier % (Auto) 13.9 % Eos % (Auto) 2.2 % Baso % (Auto) 0.6 % Neut # (Auto) 5.18 (1.40-6.50) K/uL Lymph # (Auto) 1.26 (1.20-3.40) K/uL Cavalier # (Auto) 1.08 H (0.11-0.59) K/uL Eos # (Auto) 0.17 (0.00-0.50) K/uL Baso # (Auto) 0.05 (0.00-0.20) K/uL Immature Gran # (Auto) 0.02 (0.01-0.20) K/uL PT 12.0 (9.0-12.0) Seconds INR 1.1 (0.9-1.1) VBG pH (7.36-7.41) VBG pCO2 (38-50) mmHg VBG pO2 mmHg VBG HCO3 mmol/L VBG O2 Saturation % VBG Base Excess mEq/L POC Sodium (135-144) mmol/L Sodium 138 (136-145) mmol/L POC Potassium (3.3-5.0) mmol/L Potassium 3.6 (3.5-5.1) mmol/L POC Chloride (101-112) mmol/L Chloride 104 (98-107) mmol/L Carbon Dioxide 27 (21-32) mmol/L POC Total CO2 (24-31) mmol/L Anion Gap 7 (3-11) POC Anion Gap (16-25) mmol/L POC BUN (7-18) mg/dl BUN 12 (6-23) mg/dl Creatinine 0.72 (0.6-1.4) mg/dl POC Creatinine (0.6-1.3) mg/dl Est Cr Clr Drug Dosing 121.5 ml/min eGFR 99.51 BUN/Creatinine Ratio 16.7 (10-20) Glucose 124 H (70-99(Fasting)) mg/dl POC Glucose (other) (70-99) mg/dl Lactate 0.8 (0.4-2.0) mmol/L Calcium 8.6 (8.6-10.3) mg/dl POC Ioniz Calcium Ruperto (1.12-1.32) mmol/l Magnesium 1.3 L (1.7-2.4) mg/dl Total Bilirubin 0.7 (0.2-1.0) mg/dl AST 13 (13-39) U/L ALT 7 (7-52) U/L Alkaline Phosphatase 71 (34-104) U/L Troponin I High Sens 8.6 (0-20) pg/ml Total Protein 6.8 (6.0-8.3) gm/dl Albumin 4.0 (3.4-5.0) gm/dl Globulin 2.8 (2.5-4.0) gm/dl Albumin/Globulin Ratio 1.4 (0.9-2) Lipase 13 (11-82) U/L Adenovirus (PCR) (NotDetected) B. pertussis DNA (PCR) (NotDetected) B.parapertussis DNA PCR (NotDetected) C. pneumoniae DNA (PCR) (NotDetected) Coronavirus OC43 (PCR) (NotDetected) Coronavirus HKU1 (PCR) (NotDetected) Coronavirus 229E (PCR) (NotDetected) SARS-CoV-2 (PCR) (NotDetected) Coronavirus NL63 (PCR) (NotDetected) Human Metapneumovir PCR (NotDetected) Influenza Type A (PCR) (NotDetected) Influenza Type B (PCR) (NotDetected) M. pneumoniae (PCR) (NotDetected) Parainfluenza 1 (PCR) (NotDetected) Parainfluenza 2 (PCR) (NotDetected) Parainfluenza 3 (PCR) (NotDetected) Parainfluenza 4 (PCR) (NotDetected) RSV (PCR) (NotDetected) Entero/Rhino (PCR) (NotDetected) Diagnostic Findings CXR FINDINGS: An AP, portable, upright chest radiograph is compared to study dated 01/03/2024. The examination is degraded by portable technique and patient rotation. The heart is enlarged noting atherosclerotic calcification of the thoracic aorta. The pulmonary vasculature is nondistended congested. Chronic interstitial thickening is similar to previous. There is bibasilar scarring/atelectasis. No airspace consolidation or large pleural effusion is identified. No pneumothorax is seen. The skeletal structures are osteopenic. The bony thorax is grossly intact. Arthritic change is seen in the shoulders. IMPRESSION: Cardiomegaly with no active disease in the chest. CT head FINDINGS: Brain parenchyma: There is age-advanced involutional change noting moderate to advanced confluent subcortical and periventricular microangiopathic disease. There is no hemorrhage, mass effect, or evidence of acute territorial ischemia by CT criteria. Irving-white matter differentiation is preserved. No extra-axial fluid collection is seen. Ventricles, sulci, cisterns: Prominent secondary to involutional change. Intracranial vasculature: There is atherosclerotic calcification of the ca[place] us carotid arteries. Calvarium: Unremarkable. Sinuses and mastoids: There is trace mucosal thickening within the maxillary, ethmoid, and sphenoid sinuses. The mastoid air cells are well pneumatized. Orbits: The bony orbits are grossly intact. IMPRESSION: There is no hemorrhage, mass effect, or evidence of acute territorial ischemia by CT criteria. CT abdomen pelvis FINDINGS: Lung bases: The heart is enlarged and without pericardial effusion. The coronary arteries are densely calcified. The lung bases are clear noting dependent scarring/atelectasis. Liver: The contrast-enhanced liver is normal in size, contour, and attenuation. There is no intrahepatic biliary ductal dilatation. The hepatic veins and portal veins are patent. Gallbladder: Unremarkable. Spleen: Normal in size and attenuation. Pancreas: Moderately atrophic and grossly unremarkable. Adrenal glands: Unremarkable. Kidneys: The contrast enhanced kidneys are normal in size and without hydrone phrosis. The kidneys enhance symmetrically. Right renal cyst measuring up to 2.0 cm. Abdominal vasculature: The abdominal aorta is normal in course and caliber noting mild to moderate atherosclerotic calcification. Bowel: There is rectosigmoid fecal retention and moderate constipation. No bowel obstruction is seen. The appendix is well-visualized and normal. Peritoneum: There is no intraperitoneal free air or abdominal ascites. There are fat-containing umbilical and supraumbilical hernias. Lymphadenopathy: None. Pelvic viscera: Evaluation of the pelvis is degraded by streak artifact from orthopedic hardware in the hips. The prostate gland is diminutive and heterogeneous noting brachytherapy implants in place. The bladder is distended, and the wall appears thickened/trabeculated indicating chronic outlet obstruction. Skeletal structures: The skeletal structures are osteopenic. No lytic or blastic lesions are seen. Sclerotic change is noted in the sacroiliac joints and pubic symphysis. There is mild lumbosacral spondylosis. A left hip arthroplasty is in place. There are chronic/healed left-sided rib fractures. There is chronic deformity of the right proximal femur with intertrochanteric lag screws in place. IMPRESSION: 1. No acute infectious or inflammatory findings are identified in the abdomen or pelvis. 2. Rectosigmoid fecal retention and moderate constipation. 3. Cardiomegaly noting coronary artery atherosclerosis. 4. Additional findings as above.
[2024-01-13] MEDS ORDERED: ACETAMINOPHEN 325 MG TAB PO PRN (14:19)
[2024-01-13] MEDS ORDERED: POLYETHYLENE (MIRALAX) 17 GM PACK PO PRN (14:19)
[2024-01-13] MEDS ORDERED: PHARMACY GLYCEMIC MGMT CONSULT PRN (14:23)
[2024-01-13 15:09] LABS: Thyroid Stimulating Hormone 3.974 uIu/ml (0.300-4.500)
[2024-01-13] MEDS: MAGNESIUM SULFATE / D5W 1 GM/100 ML BAG IV SCH ×2 (15:13→20:59)
[2024-01-13] MEDS: DOCUSATE SODIUM/SENNA 50/8.6MG TAB PO SCH (15:13)
[2024-01-13] MEDS ORDERED: GLUCAGON FOR INJ 1 MG VIAL SQ PRN (15:30)
[2024-01-13] MEDS ORDERED: GLUCOSE 10 TAB/TUBE PO PRN (15:30)
[2024-01-13] MEDS ORDERED: CARBOHYDRATES FOR HYPOGLYCEMIA PO PRN (15:30)
[2024-01-13] MEDS ORDERED: DEXTROSE 50% 50 ML SYRINGE IV PRN (15:30)
[2024-01-13] MEDS ORDERED: GLUCOSE 40% GEL 15 GM TUBE PO PRN (15:30)
[2024-01-13] MEDS: POTASSIUM CHLORIDE / WTR 10 MEQ/100 ML PLCT IV SCH (16:50)
[2024-01-13 17:03] LABS: Alanine Aminotransferase 14 U/L (7-52); Aspartate Aminotransferase 15 U/L (13-39)
[2024-01-13] MEDS: NICOTINE 7 MG/24 HR TDSY TD SCH (17:05)
[2024-01-13] MEDS: guaiFENesin 600 MG TABCR PO SCH (17:25)
[2024-01-13] MEDS: REMDESIVIR 200 MG in SODIUM CHLORIDE 0.9% 210 ML IV STA (17:25)
[2024-01-13] MEDS: INSULIN ASPART PER UNIT CHARGE SC SCH (17:52)
[2024-01-13] MEDS: POTASSIUM CHLORIDE CRTAB 20 MEQ TABCR PO STA (20:11)
[2024-01-13] MEDS: RIVAROXABAN 20 MG TAB PO SCH (20:13)
[2024-01-13] MEDS: METOPROLOL TARTRATE 1 MG/ML VIAL IV STA (21:00)
[2024-01-13] MEDS: MAGNESIUM OXIDE 400 MG TAB PO ONE (21:12)
[2024-01-13 21:42] LABS: Appearance Urine Clear (Clear); Bilirubin Urine Negative (Negative); Blood Urine Negative (Negative); Color Urine Yellow; Glucose Urine UA Negative (Negative); Ketones Urine Negative (Negative); Leukocyte Esterase Urine Negative (Negative); Nitrite Urine Negative (Negative); Protein Urine Negative (Negative); Specific Gravity Urine 1.004 (1.000-1.030); Urobilinogen Urine Negative (Negative)
[2024-01-14] MEDS: LEVOTHYROXINE SODIUM 125 MCG TABLET PO SCH (05:48)
[2024-01-14] MEDS: LABETALOL HCL IV 5 MG/ML 20ML IV STA ×2 (06:09→07:01)
[2024-01-14 07:22] LABS: Hematocrit (blood only) 40.8 % (42.0-52.0); Hemoglobin 14.4 g/dl (14.0-18.0); Red Blood Count 4.67 M/uL (4.70-6.10); White Blood Count 6.53 K/ul (4.8-10.8)
[2024-01-14 07:23] LABS: Mean Corpuscular Hemoglobin 30.8 pg (25.0-34.0); Mean Corpuscular Hgb Conc 35.3 g/dL (32.0-36.0); Mean Corpuscular Volume 87.4 fL (80.0-100.0); Mean Platelet Volume 9.2 fL (9.4-12.4); Platelet Count 152 K/uL (130-400); RDW Standard Deviation 41.2 fL (36.4-46.3)
[2024-01-14 07:45] LABS: BUN Creatinine Ratio 19.8 (10-20); Calcium 8.3 mg/dl (8.6-10.3); Creatinine Clr Calc Pharmacy 89.6 ml/min; Potassium 4.2 mmol/L (3.5-5.1)
[2024-01-14 07:46] LABS: Albumin Globulin Ratio 1.3 (0.9-2); Albumin Level 3.7 gm/dl (3.4-5.0); Bilirubin,Total 0.7 mg/dl (0.2-1.0); Globulin 2.8 gm/dl (2.5-4.0); Magnesium 2.2 mg/dl (1.7-2.4); Phosphorus 3.8 mg/dl (2.5-4.9); Total Protein 6.5 gm/dl (6.0-8.3)
--- NOTE | 2024-01-14 08:48 | Hospitalist Progress Note ---
Date of Service January 14, 2024 Assessment & Plan (1) COVID-19: (2) Acute confusion: (3) Generalized weakness: Plan: CT head negative Mostly metabolic encephalopathy secondary to infection/ COVID Hx of parkinsonism and amb. dysfunction however now more weak and lethargic secondary to infection Afebrile WBC wnl lactic acid negative UA - negative blood cultx - pending COVID CXR negative - not hypoxic - positive cough on admission - pt with weakness, lethargy -> now improved - procalcitonin - pending - remdesivir - guaifenesin Supportive care for covid (4) Hypomagnesemia: Plan: - Mag level 1.3 in ER - replete an monitor (5) Parkinsonism: Plan: - cont. home carvidopa, levodopa (6) Paroxysmal A-fib: Plan: - cont. amiodarone, xarelto SVT - and w. hx of SVT - HR into 160s overnight - follows w/ [facility], consulted Hypertension - on lisinopril - will monitor Hyperlipidemia - on statin (7) Type 2 diabetes mellitus: Plan: - cont. glargine insulin, SSI ACHS - current A1c 8.0% - glycemic pharmacy consulted (8) Hypothyroidism: Plan: - cont. levothyroxine - current TSH 3.9 (wnl) Tobacco use - cont. nicotine patch Ambulatory dysfunction mostly wheelchair can ambulate short distance with assistance of walker PT OT when stable DVT prophylaxis - on Xarelto Disposition telemetry Full code. Admission and Anticipated Discharge Date Admission Date: January 13, 2024 Subjective Pt seen in follow up of weakness, lethargy, + COVID Overnight in SVT HR 150s, cardiology was consulted Currently laying in bed in NAD, awake and alert, says he is feeling better Denies any fevers, chills, chest pain, shortness of breath, or cough. No abd.pain, n/v Review of Systems Review of Systems: All systems reviewed & are unremarkable except as noted in Subjective Physical Exam Physical Exam: Constitutional: WD/WN, vitals as a duncan Eyes: PERRL, conjunctiva e normal, anicteri c sclerae ENMT: external ear and n ose normal, oropha rynx normal Neck: supple Respiratory: normal respiratory effort, CTAB no c rackles and no whe ezes Cardiovascular: RRR, no murmur, no edema Chest (Breasts): Chest: normal insp ection of chest Gastrointestinal ( Abdomen): Inspection/Auscult ation: abdomen nor mal to inspection and normal bowel s ounds Percussion/ Palpation: abdomen soft; abdomen non tender Musculoskeletal: no LE edema, moves extremities Skin: no rashes, warm an d dry Neurologic: PERRL, EOMI, no fa ce palsy, no dysar thria, moves extre mities Psychiatric: A+Ox3, euthymic af fect Results & Data Results & Data Vital Signs (Past 12 Hours) Vital Signs Temp Pulse Pulse Resp BP BP Pulse Ox 01/14/24 08:34 36.6 C 64 17 166/92 H 94 01/14/24 07:34 63 01/14/24 06:24 64 159/95 H 01/14/24 06:09 61 189/117 H 01/14/24 05:47 37.4 C 64 16 189/117 H 94 01/14/24 00:57 37.1 C 72 18 132/73 95 01/13/24 21:47 63 01/13/24 21:15 70 123/83 01/13/24 21:00 01/13/24 21:00 155 H 143/100 H O2 Del Method 01/14/24 08:34 Room Air 01/14/24 07:34 01/14/24 06:24 01/14/24 06:09 01/14/24 05:47 Room Air 01/14/24 00:57 Room Air 01/13/24 21:47 01/13/24 21:15 01/13/24 21:00 Room Air 01/13/24 21:00 Laboratory Results 01/14/24 01/14/24 01/13/24 Range/Units 08:32 07:09 20:30 WBC 6.53 (4.8-10.8) K/ul RBC 4.67 L (4.70-6.10) M/uL Hgb 14.4 (14.0-18.0) g/dl POC Hgb (14.0-18.0) g/dl Hct 40.8 L (42.0-52.0) % POC Hct (42-52) % MCV 87.4 (80.0-100.0) fL MCH 30.8 (25.0-34.0) pg MCHC 35.3 (32.0-36.0) g/dL RDW Std Deviation 41.2 (36.4-46.3) fL RDW Coeff of Robyn 13.0 (11.5-14.5) % Plt Count 152 (130-400) K/uL MPV 9.2 L (9.4-12.4) fL Immature Gran % (Auto) % Neut % (Auto) % Lymph % (Auto) % Yell % (Auto) % Eos % (Auto) % Baso % (Auto) % Neut # (Auto) (1.40-6.50) K/uL Lymph # (Auto) (1.20-3.40) K/uL Yell # (Auto) (0.11-0.59) K/uL Eos # (Auto) (0.00-0.50) K/uL Baso # (Auto) (0.00-0.20) K/uL Immature Gran # (Auto) (0.01-0.20) K/uL PT (9.0-12.0) Seconds INR (0.9-1.1) VBG pH (7.36-7.41) VBG pCO2 (38-50) mmHg VBG pO2 mmHg VBG HCO3 mmol/L VBG O2 Saturation % VBG Base Excess mEq/L POC Sodium (135-144) mmol/L Sodium 138 (136-145) mmol/L POC Potassium (3.3-5.0) mmol/L Potassium 4.2 (3.5-5.1) mmol/L POC Chloride (101-112) mmol/L Chloride 104 (98-107) mmol/L Carbon Dioxide 26 (21-32) mmol/L POC Total CO2 (24-31) mmol/L Anion Gap 8 (3-11) POC Anion Gap (16-25) mmol/L POC BUN (7-18) mg/dl BUN 19 (6-23) mg/dl Creatinine 0.96 (0.6-1.4) mg/dl POC Creatinine (0.6-1.3) mg/dl Est Cr Clr Drug Dosing 89.6 ml/min eGFR 86.10 BUN/Creatinine Ratio 19.8 (10-20) Glucose 260 H (70-99(Fasting)) mg/dl POC Glucose 249 H (70-99) mg/dl POC Glucose (other) (70-99) mg/dl Estimat Average Glucose Pending Hemoglobin A1c Pending Lactate (0.4-2.0) mmol/L Calcium 8.3 L (8.6-10.3) mg/dl POC Ioniz Calcium Ruperto (1.12-1.32) mmol/l Phosphorus 3.8 (2.5-4.9) mg/dl Magnesium 2.2 (1.7-2.4) mg/dl Total Bilirubin 0.7 (0.2-1.0) mg/dl AST 12 L (13-39) U/L ALT 15 (7-52) U/L Alkaline Phosphatase 80 (34-104) U/L Troponin I High Sens (0-20) pg/ml Total Protein 6.5 (6.0-8.3) gm/dl Albumin 3.7 (3.4-5.0) gm/dl Globulin 2.8 (2.5-4.0) gm/dl Albumin/Globulin Ratio 1.3 (0.9-2) Lipase (11-82) U/L Procalcitonin TSH (0.300-4.500) uIu/ml Urine Color Yellow Urine Appearance Clear (Clear) Urine pH 7.0 (4.5-7.5) Ur Specific Lyndon 1.004 (1.000-1.030) Urine Protein Negative (Negative) Urine Glucose (UA) Negative (Negative) Urine Ketones Negative (Negative) Urine Blood Negative (Negative) Urine Nitrite Negative (Negative) Urine Bilirubin Negative (Negative) Urine Urobilinogen Negative (Negative) Ur Leukocyte Esterase Negative (Negative) Adenovirus (PCR) (NotDetected) B. pertussis DNA (PCR) (NotDetected) B.parapertussis DNA PCR (NotDetected) C. pneumoniae DNA (PCR) (NotDetected) Coronavirus OC43 (PCR) (NotDetected) Coronavirus HKU1 (PCR) (NotDetected) Coronavirus 229E (PCR) (NotDetected) SARS-CoV-2 (PCR) (NotDetected) Coronavirus NL63 (PCR) (NotDetected) Human Metapneumovir PCR (NotDetected) Influenza Type A (PCR) (NotDetected) Influenza Type B (PCR) (NotDetected) M. pneumoniae (PCR) (NotDetected) Parainfluenza 1 (PCR) (NotDetected) Parainfluenza 2 (PCR) (NotDetected) Parainfluenza 3 (PCR) (NotDetected) Parainfluenza 4 (PCR) (NotDetected) RSV (PCR) (NotDetected) Entero/Rhino (PCR) (NotDetected) Ref Lab Test Result 01/13/24 01/13/24 01/13/24 Range/Units 20:29 17:31 15:16 WBC (4.8-10.8) K/ul RBC (4.70-6.10) M/uL Hgb (14.0-18.0) g/dl POC Hgb (14.0-18.0) g/dl Hct (42.0-52.0) % POC Hct (42-52) % MCV (80.0-100.0) fL MCH (25.0-34.0) pg MCHC (32.0-36.0) g/dL RDW Std Deviation (36.4-46.3) fL RDW Coeff of Robyn (11.5-14.5) % Plt Count (130-400) K/uL MPV (9.4-12.4) fL Immature Gran % (Auto) % Neut % (Auto) % Lymph % (Auto) % Yell % (Auto) % Eos % (Auto) % Baso % (Auto) % Neut # (Auto) (1.40-6.50) K/uL Lymph # (Auto) (1.20-3.40) K/uL Yell # (Auto) (0.11-0.59) K/uL Eos # (Auto) (0.00-0.50) K/uL Baso # (Auto) (0.00-0.20) K/uL Immature Gran # (Auto) (0.01-0.20) K/uL PT (9.0-12.0) Seconds INR (0.9-1.1) VBG pH (7.36-7.41) VBG pCO2 (38-50) mmHg VBG pO2 mmHg VBG HCO3 mmol/L VBG O2 Saturation % VBG Base Excess mEq/L POC Sodium (135-144) mmol/L Sodium (136-145) mmol/L POC Potassium (3.3-5.0) mmol/L Potassium (3.5-5.1) mmol/L POC Chloride (101-112) mmol/L Chloride (98-107) mmol/L Carbon Dioxide (21-32) mmol/L POC Total CO2 (24-31) mmol/L Anion Gap (3-11) POC Anion Gap (16-25) mmol/L POC BUN (7-18) mg/dl BUN (6-23) mg/dl Creatinine (0.6-1.4) mg/dl POC Creatinine (0.6-1.3) mg/dl Est Cr Clr Drug Dosing ml/min eGFR BUN/Creatinine Ratio (10-20) Glucose (70-99(Fasting)) mg/dl POC Glucose 204 H 167 H (70-99) mg/dl POC Glucose (other) (70-99) mg/dl Estimat Average Glucose Hemoglobin A1c Lactate (0.4-2.0) mmol/L Calcium (8.6-10.3) mg/dl POC Ioniz Calcium Ruperto (1.12-1.32) mmol/l Phosphorus (2.5-4.9) mg/dl Magnesium (1.7-2.4) mg/dl Total Bilirubin (0.2-1.0) mg/dl AST 15 (13-39) U/L ALT 14 (7-52) U/L Alkaline Phosphatase (34-104) U/L Troponin I High Sens (0-20) pg/ml Total Protein (6.0-8.3) gm/dl Albumin (3.4-5.0) gm/dl Globulin (2.5-4.0) gm/dl Albumin/Globulin Ratio (0.9-2) Lipase (11-82) U/L Procalcitonin TSH (0.300-4.500) uIu/ml Urine Color Urine Appearance (Clear) Urine pH (4.5-7.5) Ur Specific Lyndon (1.000-1.030) Urine Protein (Negative) Urine Glucose (UA) (Negative) Urine Ketones (Negative) Urine Blood (Negative) Urine Nitrite (Negative) Urine Bilirubin (Negative) Urine Urobilinogen (Negative) Ur Leukocyte Esterase (Negative) Adenovirus (PCR) (NotDetected) B. pertussis DNA (PCR) (NotDetected) B.parapertussis DNA PCR (NotDetected) C. pneumoniae DNA (PCR) (NotDetected) Coronavirus OC43 (PCR) (NotDetected) Coronavirus HKU1 (PCR) (NotDetected) Coronavirus 229E (PCR) (NotDetected) SARS-CoV-2 (PCR) (NotDetected) Coronavirus NL63 (PCR) (NotDetected) Human Metapneumovir PCR (NotDetected) Influenza Type A (PCR) (NotDetected) Influenza Type B (PCR) (NotDetected) M. pneumoniae (PCR) (NotDetected) Parainfluenza 1 (PCR) (NotDetected) Parainfluenza 2 (PCR) (NotDetected) Parainfluenza 3 (PCR) (NotDetected) Parainfluenza 4 (PCR) (NotDetected) RSV (PCR) (NotDetected) Entero/Rhino (PCR) (NotDetected) Ref Lab Test Result 01/13/24 01/13/24 01/13/24 Range/Units 10:54 08:54 08:44 WBC (4.8-10.8) K/ul RBC (4.70-6.10) M/uL Hgb (14.0-18.0) g/dl POC Hgb 14.3 (14.0-18.0) g/dl Hct (42.0-52.0) % POC Hct 42 (42-52) % MCV (80.0-100.0) fL MCH (25.0-34.0) pg MCHC (32.0-36.0) g/dL RDW Std Deviation (36.4-46.3) fL RDW Coeff of Robyn (11.5-14.5) % Plt Count (130-400) K/uL MPV (9.4-12.4) fL Immature Gran % (Auto) % Neut % (Auto) % Lymph % (Auto) % Yell % (Auto) % Eos % (Auto) % Baso % (Auto) % Neut # (Auto) (1.40-6.50) K/uL Lymph # (Auto) (1.20-3.40) K/uL Yell # (Auto) (0.11-0.59) K/uL Eos # (Auto) (0.00-0.50) K/uL Baso # (Auto) (0.00-0.20) K/uL Immature Gran # (Auto) (0.01-0.20) K/uL PT (9.0-12.0) Seconds INR (0.9-1.1) VBG pH 7.41 (7.36-7.41) VBG pCO2 45 (38-50) mmHg VBG pO2 32 mmHg VBG HCO3 29 mmol/L VBG O2 Saturation < 60.0 % VBG Base Excess 3.2 mEq/L POC Sodium 139 (135-144) mmol/L Sodium (136-145) mmol/L POC Potassium 3.5 (3.3-5.0) mmol/L Potassium (3.5-5.1) mmol/L POC Chloride 100 L (101-112) mmol/L Chloride (98-107) mmol/L Carbon Dioxide (21-32) mmol/L POC Total CO2 24 (24-31) mmol/L Anion Gap (3-11) POC Anion Gap 20.0 (16-25) mmol/L POC BUN 12 (7-18) mg/dl BUN (6-23) mg/dl Creatinine (0.6-1.4) mg/dl POC Creatinine 0.8 (0.6-1.3) mg/dl Est Cr Clr Drug Dosing ml/min eGFR BUN/Creatinine Ratio (10-20) Glucose (70-99(Fasting)) mg/dl POC Glucose (70-99) mg/dl POC Glucose (other) 131 H (70-99) mg/dl Estimat Average Glucose Hemoglobin A1c Lactate (0.4-2.0) mmol/L Calcium (8.6-10.3) mg/dl POC Ioniz Calcium Ruperto 1.09 L (1.12-1.32) mmol/l Phosphorus (2.5-4.9) mg/dl Magnesium (1.7-2.4) mg/dl Total Bilirubin (0.2-1.0) mg/dl AST (13-39) U/L ALT (7-52) U/L Alkaline Phosphatase (34-104) U/L Troponin I High Sens (0-20) pg/ml Total Protein (6.0-8.3) gm/dl Albumin (3.4-5.0) gm/dl Globulin (2.5-4.0) gm/dl Albumin/Globulin Ratio (0.9-2) Lipase (11-82) U/L Procalcitonin TSH (0.300-4.500) uIu/ml Urine Color Urine Appearance (Clear) Urine pH (4.5-7.5) Ur Specific Lyndon (1.000-1.030) Urine Protein (Negative) Urine Glucose (UA) (Negative) Urine Ketones (Negative) Urine Blood (Negative) Urine Nitrite (Negative) Urine Bilirubin (Negative) Urine Urobilinogen (Negative) Ur Leukocyte Esterase (Negative) Adenovirus (PCR) Not Detected (NotDetected) B. pertussis DNA (PCR) Not Detected (NotDetected) B.parapertussis DNA PCR Not Detected (NotDetected) C. pneumoniae DNA (PCR) Not Detected (NotDetected) Coronavirus OC43 (PCR) Not Detected (NotDetected) Coronavirus HKU1 (PCR) Not Detected (NotDetected) Coronavirus 229E (PCR) Not Detected (NotDetected) SARS-CoV-2 (PCR) DETECTED A (NotDetected) Coronavirus NL63 (PCR) Not Detected (NotDetected) Human Metapneumovir PCR Not Detected (NotDetected) Influenza Type A (PCR) Not Detected (NotDetected) Influenza Type B (PCR) Not Detected (NotDetected) M. pneumoniae (PCR) Not Detected (NotDetected) Parainfluenza 1 (PCR) Not Detected (NotDetected) Parainfluenza 2 (PCR) Not Detected (NotDetected) Parainfluenza 3 (PCR) Not Detected (NotDetected) Parainfluenza 4 (PCR) Not Detected (NotDetected) RSV (PCR) Not Detected (NotDetected) Entero/Rhino (PCR) Not Detected (NotDetected) Ref Lab Test Result 01/13/24 01/13/24 Range/Units 08:40 08:40 WBC 7.76 (4.8-10.8) K/ul RBC 4.73 (4.70-6.10) M/uL Hgb 14.5 (14.0-18.0) g/dl POC Hgb (14.0-18.0) g/dl Hct 42.0 (42.0-52.0) % POC Hct (42-52) % MCV 88.8 (80.0-100.0) fL MCH 30.7 (25.0-34.0) pg MCHC 34.5 (32.0-36.0) g/dL RDW Std Deviation 41.2 (36.4-46.3) fL RDW Coeff of Robyn 12.8 (11.5-14.5) % Plt Count 158 (130-400) K/uL MPV 9.4 (9.4-12.4) fL Immature Gran % (Auto) 0.3 % Neut % (Auto) 66.8 % Lymph % (Auto) 16.2 % Yell % (Auto) 13.9 % Eos % (Auto) 2.2 % Baso % (Auto) 0.6 % Neut # (Auto) 5.18 (1.40-6.50) K/uL Lymph # (Auto) 1.26 (1.20-3.40) K/uL Yell # (Auto) 1.08 H (0.11-0.59) K/uL Eos # (Auto) 0.17 (0.00-0.50) K/uL Baso # (Auto) 0.05 (0.00-0.20) K/uL Immature Gran # (Auto) 0.02 (0.01-0.20) K/uL PT 12.0 (9.0-12.0) Seconds INR 1.1 (0.9-1.1) VBG pH (7.36-7.41) VBG pCO2 (38-50) mmHg VBG pO2 mmHg VBG HCO3 mmol/L VBG O2 Saturation % VBG Base Excess mEq/L POC Sodium (135-144) mmol/L Sodium 138 (136-145) mmol/L POC Potassium (3.3-5.0) mmol/L Potassium 3.6 (3.5-5.1) mmol/L POC Chloride (101-112) mmol/L Chloride 104 (98-107) mmol/L Carbon Dioxide 27 (21-32) mmol/L POC Total CO2 (24-31) mmol/L Anion Gap 7 (3-11) POC Anion Gap (16-25) mmol/L POC BUN (7-18) mg/dl BUN 12 (6-23) mg/dl Creatinine 0.72 (0.6-1.4) mg/dl POC Creatinine (0.6-1.3) mg/dl Est Cr Clr Drug Dosing 121.5 ml/min eGFR 99.51 BUN/Creatinine Ratio 16.7 (10-20) Glucose 124 H (70-99(Fasting)) mg/dl POC Glucose (70-99) mg/dl POC Glucose (other) (70-99) mg/dl Estimat Average Glucose Hemoglobin A1c Lactate 0.8 (0.4-2.0) mmol/L Calcium 8.6 (8.6-10.3) mg/dl POC Ioniz Calcium Ruperto (1.12-1.32) mmol/l Phosphorus (2.5-4.9) mg/dl Magnesium 1.3 L (1.7-2.4) mg/dl Total Bilirubin 0.7 (0.2-1.0) mg/dl AST 13 (13-39) U/L ALT 7 (7-52) U/L Alkaline Phosphatase 71 (34-104) U/L Troponin I High Sens 8.6 (0-20) pg/ml Total Protein 6.8 (6.0-8.3) gm/dl Albumin 4.0 (3.4-5.0) gm/dl Globulin 2.8 (2.5-4.0) gm/dl Albumin/Globulin Ratio 1.4 (0.9-2) Lipase 13 (11-82) U/L Procalcitonin Cancelled Cancelled TSH 3.974 (0.300-4.500) uIu/ml Urine Color Urine Appearance (Clear) Urine pH (4.5-7.5) Ur Specific Lyndon (1.000-1.030) Urine Protein (Negative) Urine Glucose (UA) (Negative) Urine Ketones (Negative) Urine Blood (Negative) Urine Nitrite (Negative) Urine Bilirubin (Negative) Urine Urobilinogen (Negative) Ur Leukocyte Esterase (Negative) Adenovirus (PCR) (NotDetected) B. pertussis DNA (PCR) (NotDetected) B.parapertussis DNA PCR (NotDetected) C. pneumoniae DNA (PCR) (NotDetected) Coronavirus OC43 (PCR) (NotDetected) Coronavirus HKU1 (PCR) (NotDetected) Coronavirus 229E (PCR) (NotDetected) SARS-CoV-2 (PCR) (NotDetected) Coronavirus NL63 (PCR) (NotDetected) Human Metapneumovir PCR (NotDetected) Influenza Type A (PCR) (NotDetected) Influenza Type B (PCR) (NotDetected) M. pneumoniae (PCR) (NotDetected) Parainfluenza 1 (PCR) (NotDetected) Parainfluenza 2 (PCR) (NotDetected) Parainfluenza 3 (PCR) (NotDetected) Parainfluenza 4 (PCR) (NotDetected) RSV (PCR) (NotDetected) Entero/Rhino (PCR) (NotDetected) Ref Lab Test Result Pending Medications Administered Current Inpatient Medications Acetaminophen (Acetaminophen 325 Mg Tab) 650 mg PO Q4H PRN PRN Reason: Pain or Fever Stop: 02/12/24 14:18 Amiodarone HCl (Amiodarone 200 Mg Tab) 200 mg PO DAILY JOSELITO Stop: 02/13/24 08:59 Amlodipine Besylate (Amlodipine Besylate 5 Mg Tab) 5 mg PO QAM JOSELITO Stop: 02/13/24 08:59 Dextrose (Dextrose 50% 50 Ml Syringe) 25 - 50 ml IV UD PRN; Protocol PRN Reason: Hypoglycemia Protocol Stop: 02/12/24 15:29 Docusate Sodium (Docusate Sodium 100 Mg Cap) 100 mg PO DAILY JOSELITO Stop: 02/13/24 08:59 Glucagon (Glucagon For Inj 1 Mg Vial) 1 mg SQ UD PRN; Protocol PRN Reason: Hypoglycemia Protocol Stop: 02/12/24 15:29 Glucose (Glucose 40% Gel 15 Gm Tube) 15 - 30 gm PO UD PRN; Protocol PRN Reason: Hypoglycemia Protocol Stop: 02/12/24 15:29 Glucose (Glucose 10 Tab/Tube) 4 - 8 tab PO UD PRN; Protocol PRN Reason: Hypoglycemia Protocol Stop: 02/12/24 15:29 Guaifenesin (Guaifenesin 600 Mg Tabcr) 600 mg PO Q12 JOSELITO Stop: 02/12/24 15:59 Last Admin: 01/13/24 20:13 Dose: 600 mg Remdesivir 100 mg/ Sodium (Chloride) 250 mls @ 250 mls/hr IV Q24H [facility] Stop: 01/17/24 12:59 Insulin Aspart (Insulin Aspart Per Unit Charge) 0 units SC ACHS [facility]; Protocol Stop: 02/12/24 16:29 Last Admin: 01/13/24 20:59 Dose: 4 units Insulin Glargine (Lantus Per Unit Charge) 30 units SC QAM [facility] Stop: 02/13/24 08:59 Levothyroxine Sodium (Levothyroxine Sodium 125 Mcg Tablet) 125 mcg PO DAILYBB [facility] Stop: 02/13/24 06:29 Last Admin: 01/14/24 05:48 Dose: 125 mcg Magnesium Chloride (Magnesium Chloride W/Calcium 64mg Delayed Rel Tab) 64 mg PO DAILY [facility] Stop: 02/13/24 08:59 Miscellaneous (Carbidopa-Levodopa [Rytary] 36.25-145 Mg - Order Awaiting Action) 1 each N/A QS [facility] Stop: 02/13/24 00:00 Last Admin: 01/14/24 00:23 Dose: Not Given Miscellaneous (Carbohydrates For Hypoglycemia ) 15 - 30 gm PO UD PRN PRN Reason: Hypoglycemia Treatment Stop: 02/12/24 15:29 Miscellaneous (Remove Nicoderm Patch) 1 each N/A DAILY@0859 [facility] Stop: 02/13/24 08:58 Miscellaneous Information (Pharmacy Glycemic Mgmt Consult) 1 each N/A UD PRN; Protocol PRN Reason: Consult Stop: 02/12/24 14:22 Nicotine (Nicotine 7 Mg/24 Hr Tdsy) 1 patch TD QAM [facility] Stop: 02/12/24 16:14 Last Admin: 01/13/24 17:05 Dose: 1 patch Polyethylene Glycol (Polyethylene (Miralax) 17 Gm Pack) 17 gm PO DAILY PRN PRN Reason: Constipation Stop: 02/12/24 14:18 Rivaroxaban (Rivaroxaban 20 Mg Tab) 20 mg PO HS [facility] Stop: 02/12/24 20:59 Last Admin: 01/13/24 20:13 Dose: 20 mg Senna/Docusate Sodium (Docusate Sodium/Senna 50/8.6mg Tab) 1 tab PO DAILY [facility] Stop: 02/12/24 14:29 Last Admin: 01/13/24 15:13 Dose: 1 tab
[2024-01-14] MEDS ORDERED: LANTUS PER UNIT CHARGE SC SCH ×2 (09:00)
[2024-01-14 09:52] LABS: Estimated Average Glucose 183 mg/dl
[2024-01-14] MEDS: LANTUS PER UNIT CHARGE SC SCH (10:01)
[2024-01-14] MEDS: AMIODARONE 200 MG TAB PO SCH (10:32)
[2024-01-14] MEDS: amLODIPine BESYLATE 5 MG TAB PO SCH (10:32)
[2024-01-14] MEDS: MAGNESIUM CHLORIDE W/CALCIUM 64MG DELAYED REL TAB PO SCH (10:33)
[2024-01-14] MEDS: DOCUSATE SODIUM 100 MG CAP PO SCH (10:42)
--- NOTE | 2024-01-14 12:02 | Cardiology Consultation ---
Date of Consultation January 14, 2024 Assessment & Plan (1) SVT (supraventricular tachycardia): (2) Aortic stenosis: Plan 1. SVT: He has a well-documented SVT. He had an episode of SVT yesterday. While the ventricular rate was quite high, he appeared to be asymptomatic. This has been consistent with his episodes in the past. Currently on amiodarone for suppression. He would be better served with catheter-based therapy which I discussed with him again today. However, he again, he is not in favor of any procedures. Since there is no evidence of toxicity from amiodarone at this point I think it is reasonable to continue. He can be seen in the outpatient setting for an additional discussion regarding catheter-based therapy once his acute illness has resolved. Standard vagal maneuvers or adenosine can be used in an urgent situation for recurrent episodes. 2. Aortic stenosis: Characterized as mild on his echocardiogram performed in August of this year. This can be followed over time. History of Present Illness Reason for Consultation: SVT Requesting Physician: Naveed Attending Physician: Tom Sams MD History of Present Illness The patient is a 68-year-old gentleman with a history of SVT who was admitted to the hospital with symptoms of weakness and confusion. He was discovered to have infection with COVID-19 and placed in isolation. He was also placed on telemetry and yesterday evening had 1 episode of SVT. Cardiology was then consulted for SVT. The patient cannot recall much leading up to his hospitalization. He lives in an assisted living home. He states that most days he is mobile in his wheelchair. He did not describe any specific activities but did describe walking for short distances. He believes the difficulty ambulating is due to weakness in his legs. He did not report any specific symptoms leading up to his hospitalization. He specifically denied breathing difficulty or fevers or chills. He has not been aware of any rapid heartbeats. He has not been told by the staff at his home that he has a rapid heartbeat on occasion. He did not report symptoms of dizziness or lightheadedness. Currently he feels well and "his usual self". Allergies Allergy/AdvReac Type Severity Reaction Status Date / Time No Known Allergies Allergy Verified 12/13/23 13:21 Home Medications Medication Instructions Recorded Confirmed Type Wheeled Walker #1 ea 03/21/21 12/13/23 Rx cholecalciferol (vitamin D3) 50 2,000 unit PO DAILY #90 caps 01/23/22 01/13/24 Rx mcg (2,000 unit) capsule rivaroxaban 20 mg tablet (Xarelto) 20 mg PO HS #30 tabs 01/23/22 01/13/24 Rx acetaminophen 500 mg tablet 1,000 mg (2 x 500 mg) PO TID #90 06/20/22 01/13/24 Rx (Tylenol Extra Strength) tabs amiodarone 200 mg tablet 200 mg PO DAILY 09/04/22 01/13/24 History blood sugar diagnostic (OneTouch #200 ea 11/02/22 12/13/23 Rx Ultra Test strips) docusate sodium 100 mg capsule 100 mg PO DAILY 11/17/22 01/13/24 History Wheelchair (Manual) (Manual #1 ea 01/02/23 12/13/23 Rx Wheelchair) atorvastatin 40 mg tablet 40 mg PO HS 02/16/23 01/13/24 History sennosides 8.6 mg-docusate sodium 1 tab-cap PO DAILY 02/16/23 01/13/24 History 50 mg capsule (Senna Plus) tramadol 50 mg tablet 25 mg (1/2 x 50 mg) PO TID PRN 02/19/23 01/13/24 Rx pain #30 tabs Wheelchair (Manual) #1 ea 02/21/23 12/13/23 Rx insulin aspart U-100 100 unit/mL 6 unit (0.06 mL) subcut TIDWMEAL 07/09/23 01/13/24 Rx (3 mL) subcutaneous pen (Novolog #30 mL FlexPen U-100 Insulin aspart) cranberry extract 500 mg capsule 500 mg PO BIDM 09/12/23 01/13/24 History levothyroxine 125 mcg tablet 125 mcg PO DAILYBB 09/12/23 01/13/24 History lisinopril 30 mg tablet 30 mg PO QAM 09/12/23 01/13/24 History loperamide 2 mg capsule 2 mg PO Q6H PRN Diarrhea 09/12/23 01/13/24 History metformin 850 mg tablet 850 mg PO BIDM 09/12/23 01/13/24 History amlodipine 5 mg tablet (Norvasc) 5 mg PO QAM #30 tabs 07/04/24 10/27/24 Rx magnesium chloride 64 mg 64 mg PO DAILY #30 tabs 09/20/23 01/13/24 Rx (magnesium chloride) tablet,delayed release (Mag 64) carbidopa ER 36.25 mg-levodopa 145 1 cap PO QID 30 days #120 caps 11/09/23 01/13/24 Rx mg capsule,extended release (Rytary) Saccharomyces boulardii 250 mg 250 mg PO BID 11/20/23 01/13/24 History capsule (Florastor) pen needle, diabetic, safety 30 #200 ea 12/14/23 Rx gauge x 1/3" insulin aspart U-100 100 unit/mL 1 sliding scale dose subcut 01/13/24 01/13/24 History (3 mL) subcutaneous pen (Novolog USEASDIRECTD FlexPen U-100 Insulin aspart) insulin glargine 100 unit/mL (3 10 unit subcut PM 01/13/24 01/13/24 History mL) subcutaneous pen (Lantus Solostar U-100 Insulin) insulin glargine 100 unit/mL (3 30 unit subcut QAM 01/13/24 01/13/24 History mL) subcutaneous pen (Lantus Solostar U-100 Insulin) nicotine 14 mg/24 hr daily 1 patch transdermal QAM 01/13/24 01/13/24 History transdermal patch nystatin 100,000 unit/gram topical 1 applic topical BID 01/13/24 01/13/24 History cream Patient History Medical History Tubular adenoma of colon Pulmonary nodule Leah's thyroiditis Erectile dysfunction Dilated aortic root Adult situational stress disorder Cognitive impairment Type 2 diabetes mellitus Closed head injury BPH with urinary obstruction Renal cyst Renal lesion Acute blood loss anemia Subcapital fracture of left hip Weakness Mild cognitive impairment Rash Acute respiratory failure with hypoxemia 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 Acute encephalopathy Collapse Hypoglycemia Septic prepatellar bursitis (07/2020) Sore throat Hypothyroidism History of prostate cancer Surgical History History of shoulder surgery Left History of left knee surgery Family History Mother Cancer Grandmother (Paternal) Stroke Grandfather (Paternal) Stroke Other Myocardial infarction Denies family history of Ovarian cancer Prostate cancer Breast cancer Colorectal cancer Social History Smoking Status: Unknown if ever smoked Tobacco Type: Smokeless Tobacco (Dip or Chew) Age Started Using Tobacco: 16; Age Quit Using Tobacco: 26; Do You Dip or Chew Tobacco: Yes; Hx Alcohol Use: No Hx Substance Use: No Preferred Language: R[place] Communication Ability: Effective Communication Ability Comment: unable to obtain d/t patien condition. Recruiting Internship Required: No Beliefs That Will Affect Care: None marital status: Single Current Living Situation: Personal Care Facility [facility] current occupational status: retired current occupation: [employer] How many Children do You have: 0 Feels Safe at Home: Yes Childhood Exposure to Second-Hand Smoke: Yes Diet: diabetic caffeine: Yes (iced tea ) Dental Care, Regularly: No Physical Activity Frequency: Does not Exercise Seatbelt Use: always Sunscreen Use: No Assistive Devices: None Review of Systems Review of Systems: Per HPI. Physical Exam Physical Exam: The patient is alert and oriented. Mood and affect appeared normal. He answered all questions appropriately. Perhaps confused at times. HEENT: Pupils are equal and reactive to light and accommodation. Extraocular movements are intact. The sclerae are anicteric. Neuro: Cranial nerves intact Lungs: Clear to auscultation bilaterally. He has good air movement without use of accessory muscles. No rales wheezes or rhonchi. Cardiac: Heart demonstrates a regular rate and rhythm. Normal S1 and S2. Soft crescendo systolic murmur. Pulses: The patient has palpable radial pulses bilaterally that are equal in intensity Extremities: There was no evidence of hypoperfusion. There is no cyanosis or clubbing. There is no edema. Skin: I did not appreciate any rashes on examination today. Results & Data Vital Signs (Past 12 Hours) Vital Signs Temp Pulse Pulse Resp BP BP Pulse Ox 01/14/24 10:45 36.5 C 66 18 145/84 H 96 01/14/24 08:34 36.6 C 64 17 166/92 H 94 01/14/24 07:34 63 01/14/24 06:24 64 159/95 H 01/14/24 06:09 61 189/117 H 01/14/24 05:47 37.4 C 64 16 189/117 H 94 01/14/24 00:57 37.1 C 72 18 132/73 95 O2 Del Method 01/14/24 10:45 Room Air 01/14/24 08:34 Room Air 01/14/24 07:34 01/14/24 06:24 01/14/24 06:09 01/14/24 05:47 Room Air 01/14/24 00:57 Room Air Laboratory Results Abnormal Lab Results 01/13/24 01/13/24 01/13/24 08:40 08:40 15:16 WBC RBC Hgb Hct MCV MCH MCHC RDW Std Deviation RDW Coeff of Robyn Plt Count MPV Sodium Potassium Chloride Carbon Dioxide Anion Gap BUN Creatinine Est Cr Clr Drug Dosing eGFR BUN/Creatinine Ratio Glucose POC Glucose Estimat Average Glucose Hemoglobin A1c Calcium Phosphorus Magnesium Total Bilirubin AST 15 ALT 14 Alkaline Phosphatase Total Protein Albumin Globulin Albumin/Globulin Ratio Procalcitonin Cancelled Cancelled TSH 3.974 Urine Color Urine Appearance Urine pH Ur Specific [place] Urine Protein Urine Glucose (UA) Urine Ketones Urine Blood Urine Nitrite Urine Bilirubin Urine Urobilinogen Ur Leukocyte Esterase 01/13/24 01/13/24 01/13/24 17:31 20:29 20:30 WBC RBC Hgb Hct MCV MCH MCHC RDW Std Deviation RDW Coeff of Robyn Plt Count MPV Sodium Potassium Chloride Carbon Dioxide Anion Gap BUN Creatinine Est Cr Clr Drug Dosing eGFR BUN/Creatinine Ratio Glucose POC Glucose 167 H 204 H Estimat Average Glucose Hemoglobin A1c Calcium Phosphorus Magnesium Total Bilirubin AST ALT Alkaline Phosphatase Total Protein Albumin Globulin Albumin/Globulin Ratio Procalcitonin TSH Urine Color Yellow Urine Appearance Clear Urine pH 7.0 Ur Specific [place] 1.004 Urine Protein Negative Urine Glucose (UA) Negative Urine Ketones Negative Urine Blood Negative Urine Nitrite Negative Urine Bilirubin Negative Urine Urobilinogen Negative Ur Leukocyte Esterase Negative 01/14/24 01/14/24 07:09 08:32 WBC 6.53 RBC 4.67 L Hgb 14.4 Hct 40.8 L MCV 87.4 MCH 30.8 MCHC 35.3 RDW Std Deviation 41.2 RDW Coeff of Robyn 13.0 Plt Count 152 MPV 9.2 L Sodium 138 Potassium 4.2 Chloride 104 Carbon Dioxide 26 Anion Gap 8 BUN 19 Creatinine 0.96 Est Cr Clr Drug Dosing 89.6 eGFR 86.10 BUN/Creatinine Ratio 19.8 Glucose 260 H POC Glucose 249 H Estimat Average Glucose 183 Hemoglobin A1c 8.0 H Calcium 8.3 L Phosphorus 3.8 Magnesium 2.2 Total Bilirubin 0.7 AST 12 L ALT 15 Alkaline Phosphatase 80 Total Protein 6.5 Albumin 3.7 Globulin 2.8 Albumin/Globulin Ratio 1.3 Procalcitonin TSH Urine Color Urine Appearance Urine pH Ur Specific [place] Urine Protein Urine Glucose (UA) Urine Ketones Urine Blood Urine Nitrite Urine Bilirubin Urine Urobilinogen Ur Leukocyte Esterase Diagnostic Findings Echocardiogram 09/13/2023: Normal LV systolic function with ejection fraction of 60 to 65%. Mild LVH. Mild aortic stenosis. PG Care Time/CCT Total # of Minutes Spent Total Time Spent with Patient: Total time spent is greater than 50% in coordination of care (as documented) at patient's floor/unit and/or counseling patient: Coding Level of Care Code 12526 INT INP/OBS CARE 3/75MIN Diagnoses SVT (supraventricular tachycardia) I47.10 Aortic stenosis I35.0
[2024-01-14] MEDS: REMDESIVIR 100 MG in SODIUM CHLORIDE 0.9% 230 ML IV SCH (12:42)
--- NOTE | 2024-01-14 14:14 | Pharmacy Report ---
Pharmacy Glycemic Short Note 2 - Date of Service January 14, 2024 - Glycemic Short BSG Results (Last 24 hours): 01/13/24 01/13/24 01/14/24 17:31 20:29 07:09 Glucose 260 H POC Glucose 167 H 204 H 01/14/24 01/14/24 01/14/24 08:32 12:07 12:10 Glucose POC Glucose 249 H 306 H* 321 H* OUTPATIENT ANTIDIABETIC REGIMEN: * Lantus 30 units SC qAM, 10 units SC qPM * Novolog 6 units SC TIDM * Metformin 850 mg PO BIDM HbA1c: 8% (01/14/24) ASSESSMENT: * EDILBERTO is a 68 year old male known to pharmacy glycemic service, who presents w/ weakness and confusion likely secondary to COVID-19 infection * Started on remdesivir, but no steroids at this time * No carbs documented at breakfast. Discussed with RN following lunch BSG > 300 mg/dL who confirmed patient had juice prior to POC. * Won't overreact to this value * Will utilize recent blood sugar data to guide initial glycemic management PLAN FOR INPATIENT GLYCEMIC CONTROL: * Hold outpatient oral diabetes medications * Basal insulin * Lantus 30 units SQ daily * Bolus insulin * NovoLog per scale ACHS or Q6hrs while NPO * Goal Range: Low 110 mg/dL - High 140 mg/dL * Correction Factor: 20 mg/dL/unit * Nutritional / Prandial insulin per carb ratio of 1 unit per 7 grams CHO consumed
[2024-01-15] MEDS: lisinopril 10 MG TAB PO SCH (08:20)
[2024-01-15 08:24] LABS: Hematocrit (blood only) 43.5 % (42.0-52.0); Hemoglobin 14.6 g/dl (14.0-18.0); Mean Corpuscular Hemoglobin 30.1 pg (25.0-34.0); Mean Corpuscular Hgb Conc 33.6 g/dL (32.0-36.0); Mean Corpuscular Volume 89.7 fL (80.0-100.0); Platelet Count 164 K/uL (130-400); RDW Standard Deviation 42.5 fL (36.4-46.3); Red Blood Count 4.85 M/uL (4.70-6.10); White Blood Count 5.69 K/ul (4.8-10.8)
[2024-01-15 08:53] LABS: Albumin Globulin Ratio 1.3 (0.9-2); Albumin Level 3.7 gm/dl (3.4-5.0); BUN Creatinine Ratio 24.4 (10-20); Bilirubin,Total 0.7 mg/dl (0.2-1.0); Calcium 8.3 mg/dl (8.6-10.3); Creatinine Clr Calc Pharmacy 98.5 ml/min; Globulin 2.9 gm/dl (2.5-4.0); Magnesium 1.9 mg/dl (1.7-2.4); Phosphorus 3.2 mg/dl (2.5-4.9); Potassium 3.8 mmol/L (3.5-5.1); Total Protein 6.6 gm/dl (6.0-8.3)
[2024-01-15] MEDS ORDERED: lisinopril 10 MG TAB PO SCH (09:00)
[2024-01-15] MEDS: POTASSIUM CHLORIDE CRTAB 20 MEQ TABCR PO STA (10:08)
[2024-01-15] MEDS: MAGNESIUM SULFATE / D5W 1 GM/100 ML BAG IV ONE (10:08)
--- NOTE | 2024-01-15 13:31 | Hospitalist Progress Note ---
Date of Service January 15, 2024 Assessment & Plan (1) COVID-19: (2) Acute confusion: (3) Generalized weakness: Plan: CT head negative Mostly metabolic encephalopathy secondary to infection/ COVID Hx of parkinsonism and amb. dysfunction however now more weak and lethargic secondary to infection Afebrile WBC wnl lactic acid negative UA - negative blood cultx - negat. in 24 hrs COVID CXR negative - not hypoxic - positive cough on admission - pt with weakness, lethargy -> now improved - procalcitonin - 0.1 - remdesivir - guaifenesin Supportive care for covid Overall improved. no cough. not hypoxic, feeling better. (4) Hypomagnesemia: Plan: - Mag level 1.3 in ER - replete an monitor (5) Parkinsonism: Plan: - cont. home carvidopa, levodopa (6) Paroxysmal A-fib: Plan: - cont. amiodarone, xarelto SVT - and w. hx of SVT - HR into 160s overnight - follows w/ [facility], consulted Hypertension - on lisinopril - will monitor Hyperlipidemia - on statin (7) Type 2 diabetes mellitus: Plan: - cont. glargine insulin, SSI ACHS - current A1c 8.0% - glycemic pharmacy consulted (8) Hypothyroidism: Plan: - cont. levothyroxine - current TSH 3.9 (wnl) Tobacco use - cont. nicotine patch Ambulatory dysfunction mostly wheelchair can ambulate short distance with assistance of walker PT OT when stable DVT prophylaxis - on Xarelto Disposition telemetry Full code. Admission and Anticipated Discharge Date Admission Date: January 13, 2024 Subjective Pt seen in follow up of weakness, lethargy, + COVID Overnight in SVT HR 150s, cardiology was consulted Currently laying in bed in NAD, awake and alert, says he is feeling much better Denies any fevers, chills, chest pain, shortness of breath, or cough. No abd.pain, n/v PT/OT to see Review of Systems Review of Systems: All systems reviewed & are unremarkable except as noted in Subjective Physical Exam Physical Exam: Constitutional: WD/WN, vitals as a duncan Eyes: PERRL, conjunctiva e normal, anicteri c sclerae ENMT: external ear and n ose normal, oropha rynx normal Neck: supple Respiratory: normal respiratory effort, CTAB no c rackles and no whe ezes Cardiovascular: RRR, no murmur, no edema Chest (Breasts): Chest: normal insp ection of chest Gastrointestinal ( Abdomen): Inspection/Auscult ation: abdomen nor mal to inspection and normal bowel s ounds Percussion/ Palpation: abdomen soft; abdomen non tender Musculoskeletal: no LE edema, moves extremities Skin: no rashes, warm an d dry Neurologic: PERRL, EOMI, no fa ce palsy, no dysar thria, moves extre mities Psychiatric: A+Ox3, euthymic af fect Results & Data Results & Data Vital Signs (Past 12 Hours) Vital Signs Temp Pulse Pulse Resp BP Pulse Ox O2 Del Method 01/15/24 10:12 36.5 C 70 17 113/74 96 Room Air 01/15/24 08:31 36.8 C 63 18 148/87 H 96 Room Air 01/15/24 08:02 Room Air 01/15/24 07:00 57 L 01/15/24 04:00 36.5 C 69 18 163/103 H 95 Room Air Laboratory Results 01/15/24 01/15/24 01/15/24 Range/Units 12:22 08:19 07:34 WBC 5.69 (4.8-10.8) K/ul RBC 4.85 (4.70-6.10) M/uL Hgb 14.6 (14.0-18.0) g/dl Hct 43.5 (42.0-52.0) % MCV 89.7 (80.0-100.0) fL MCH 30.1 (25.0-34.0) pg MCHC 33.6 (32.0-36.0) g/dL RDW Std Deviation 42.5 (36.4-46.3) fL RDW Coeff of Robyn 13.0 (11.5-14.5) % Plt Count 164 (130-400) K/uL MPV 9.0 L (9.4-12.4) fL Sodium 139 (136-145) mmol/L Potassium 3.8 (3.5-5.1) mmol/L Chloride 104 (98-107) mmol/L Carbon Dioxide 27 (21-32) mmol/L Anion Gap 8 (3-11) BUN 21 (6-23) mg/dl Creatinine 0.86 (0.6-1.4) mg/dl Est Cr Clr Drug Dosing 98.5 ml/min eGFR 94.32 BUN/Creatinine Ratio 24.4 H (10-20) Glucose 202 H (70-99(Fasting)) mg/dl POC Glucose 179 H 194 H (70-99) mg/dl Calcium 8.3 L (8.6-10.3) mg/dl Phosphorus 3.2 (2.5-4.9) mg/dl Magnesium 1.9 (1.7-2.4) mg/dl Total Bilirubin 0.7 (0.2-1.0) mg/dl AST 15 (13-39) U/L ALT 15 (7-52) U/L Alkaline Phosphatase 77 (34-104) U/L Total Protein 6.6 (6.0-8.3) gm/dl Albumin 3.7 (3.4-5.0) gm/dl Globulin 2.9 (2.5-4.0) gm/dl Albumin/Globulin Ratio 1.3 (0.9-2) Ref Lab Test Result 01/14/24 01/14/24 01/14/24 Range/Units 20:55 17:24 15:18 WBC (4.8-10.8) K/ul RBC (4.70-6.10) M/uL Hgb (14.0-18.0) g/dl Hct (42.0-52.0) % MCV (80.0-100.0) fL MCH (25.0-34.0) pg MCHC (32.0-36.0) g/dL RDW Std Deviation (36.4-46.3) fL RDW Coeff of Robyn (11.5-14.5) % Plt Count (130-400) K/uL MPV (9.4-12.4) fL Sodium (136-145) mmol/L Potassium (3.5-5.1) mmol/L Chloride (98-107) mmol/L Carbon Dioxide (21-32) mmol/L Anion Gap (3-11) BUN (6-23) mg/dl Creatinine (0.6-1.4) mg/dl Est Cr Clr Drug Dosing ml/min eGFR BUN/Creatinine Ratio (10-20) Glucose (70-99(Fasting)) mg/dl POC Glucose 118 H 105 H 196 H (70-99) mg/dl Calcium (8.6-10.3) mg/dl Phosphorus (2.5-4.9) mg/dl Magnesium (1.7-2.4) mg/dl Total Bilirubin (0.2-1.0) mg/dl AST (13-39) U/L ALT (7-52) U/L Alkaline Phosphatase (34-104) U/L Total Protein (6.0-8.3) gm/dl Albumin (3.4-5.0) gm/dl Globulin (2.5-4.0) gm/dl Albumin/Globulin Ratio (0.9-2) Ref Lab Test Result 01/13/24 Range/Units 08:40 WBC (4.8-10.8) K/ul RBC (4.70-6.10) M/uL Hgb (14.0-18.0) g/dl Hct (42.0-52.0) % MCV (80.0-100.0) fL MCH (25.0-34.0) pg MCHC (32.0-36.0) g/dL RDW Std Deviation (36.4-46.3) fL RDW Coeff of Robyn (11.5-14.5) % Plt Count (130-400) K/uL MPV (9.4-12.4) fL Sodium (136-145) mmol/L Potassium (3.5-5.1) mmol/L Chloride (98-107) mmol/L Carbon Dioxide (21-32) mmol/L Anion Gap (3-11) BUN (6-23) mg/dl Creatinine (0.6-1.4) mg/dl Est Cr Clr Drug Dosing ml/min eGFR BUN/Creatinine Ratio (10-20) Glucose (70-99(Fasting)) mg/dl POC Glucose (70-99) mg/dl Calcium (8.6-10.3) mg/dl Phosphorus (2.5-4.9) mg/dl Magnesium (1.7-2.4) mg/dl Total Bilirubin (0.2-1.0) mg/dl AST (13-39) U/L ALT (7-52) U/L Alkaline Phosphatase (34-104) U/L Total Protein (6.0-8.3) gm/dl Albumin (3.4-5.0) gm/dl Globulin (2.5-4.0) gm/dl Albumin/Globulin Ratio (0.9-2) Ref Lab Test Result See Scanned Report Medications Administered Current Inpatient Medications Acetaminophen (Acetaminophen 325 Mg Tab) 650 mg PO Q4H PRN PRN Reason: Pain or Fever Stop: 02/12/24 14:18 Amiodarone HCl (Amiodarone 200 Mg Tab) 200 mg PO DAILY JOSELITO Stop: 02/13/24 08:59 Last Admin: 01/15/24 08:19 Dose: 200 mg Amlodipine Besylate (Amlodipine Besylate 5 Mg Tab) 5 mg PO QAM JOSELITO Stop: 02/13/24 08:59 Last Admin: 01/15/24 08:19 Dose: 5 mg Carbidopa/Levodopa (Carbidopa/Levodopa 36.25 Mg/145 Mg Cap) 1 ea PO Q4HWA JOSELITO Stop: 02/14/24 15:59 Dextrose (Dextrose 50% 50 Ml Syringe) 25 - 50 ml IV UD PRN; Protocol PRN Reason: Hypoglycemia Protocol Stop: 02/12/24 15:29 Docusate Sodium (Docusate Sodium 100 Mg Cap) 100 mg PO DAILY JOSELITO Stop: 02/13/24 08:59 Last Admin: 01/15/24 08:32 Dose: 100 mg Glucagon (Glucagon For Inj 1 Mg Vial) 1 mg SQ UD PRN; Protocol PRN Reason: Hypoglycemia Protocol Stop: 02/12/24 15:29 Glucose (Glucose 40% Gel 15 Gm Tube) 15 - 30 gm PO UD PRN; Protocol PRN Reason: Hypoglycemia Protocol Stop: 02/12/24 15:29 Glucose (Glucose 10 Tab/Tube) 4 - 8 tab PO UD PRN; Protocol PRN Reason: Hypoglycemia Protocol Stop: 02/12/24 15:29 Guaifenesin (Guaifenesin 600 Mg Tabcr) 600 mg PO Q12 JOSELITO Stop: 02/12/24 15:59 Last Admin: 01/15/24 08:19 Dose: 600 mg Remdesivir 100 mg/ Sodium (Chloride) 250 mls @ 250 mls/hr IV Q24H JOSELITO Stop: 01/17/24 12:59 Last Infusion: 01/15/24 13:27 Dose: Infused Insulin Aspart (Insulin Aspart Per Unit Charge) 0 units SC [facility]; Protocol Stop: 02/12/24 16:29 Last Admin: 01/15/24 13:07 Dose: 6 units Insulin Glargine (Lantus Per Unit Charge) 30 units SC [facility] Stop: 02/13/24 08:59 Last Admin: 01/15/24 08:40 Dose: 30 units Levothyroxine Sodium (Levothyroxine Sodium 125 Mcg Tablet) [facility] Stop: 02/13/24 06:29 Last Admin: 01/15/24 06:12 Dose: 125 mcg Lisinopril (Lisinopril 10 Mg Tab) 30 mg PO [facility] Stop: 02/13/24 11:09 Last Admin: 01/15/24 08:20 Dose: 30 mg Magnesium Chloride (Magnesium Chloride W/Calcium 64mg Delayed Rel Tab) 64 mg PO DAILY [facility] Stop: 02/13/24 08:59 Last Admin: 01/15/24 08:19 Dose: 64 mg Miscellaneous (Carbohydrates For Hypoglycemia ) 15 - 30 gm PO UD PRN PRN Reason: Hypoglycemia Treatment Stop: 02/12/24 15:29 Miscellaneous (Remove Nicoderm Patch) 1 each N/A DAILY@0859 [facility] Stop: 02/13/24 08:58 Last Admin: 01/15/24 08:17 Dose: 1 each Miscellaneous Information (Pharmacy Glycemic Mgmt Consult) 1 each N/A UD PRN; Protocol PRN Reason: Consult Stop: 02/12/24 14:22 Nicotine (Nicotine 7 Mg/24 Hr Tdsy) 1 patch TD [facility] Stop: 02/12/24 16:14 Last Admin: 01/15/24 08:19 Dose: 1 patch Polyethylene Glycol (Polyethylene (Miralax) 17 Gm Pack) 17 gm PO DAILY PRN PRN Reason: Constipation Stop: 02/12/24 14:18 Rivaroxaban (Rivaroxaban 20 Mg Tab) 20 mg PO HS [facility] Stop: 02/12/24 20:59 Last Admin: 01/14/24 21:16 Dose: 20 mg Senna/Docusate Sodium (Docusate Sodium/Senna 50/8.6mg Tab) 1 tab PO DAILY [facility] Stop: 02/12/24 14:29 Last Admin: 01/15/24 08:32 Dose: 1 tab
[2024-01-15] MEDS: LEVODOPA PO SCH (17:15)
[2024-01-15] MEDS: CARBIDOPA PO SCH (17:15)
[2024-01-16 06:49] LABS: Albumin Globulin Ratio 1.2 (0.9-2); Albumin Level 3.4 gm/dl (3.4-5.0); BUN Creatinine Ratio 26.5 (10-20); Bilirubin,Total 0.6 mg/dl (0.2-1.0); Calcium 8.2 mg/dl (8.6-10.3); Creatinine Clr Calc Pharmacy 102.1 ml/min; Globulin 2.9 gm/dl (2.5-4.0); Magnesium 1.8 mg/dl (1.7-2.4); Phosphorus 3.5 mg/dl (2.5-4.9); Potassium 3.8 mmol/L (3.5-5.1); Total Protein 6.3 gm/dl (6.0-8.3)
[2024-01-16] MEDS: INSULIN ASPART PER UNIT CHARGE SC SCH ×2 (09:00→12:41)
--- NOTE | 2024-01-16 10:14 | Pharmacy Report ---
Pharmacy Glycemic Short Note 2 - Date of Service January 16, 2024 - Glycemic Short BSG Results (Last 24 hours): 01/15/24 01/15/24 01/15/24 12:22 17:16 20:46 Glucose POC Glucose 179 H 72 192 H 01/16/24 01/16/24 06:05 08:35 Glucose 178 H POC Glucose 169 H OUTPATIENT ANTIDIABETIC REGIMEN: * Lantus 30 units SC qAM, 10 units SC qPM * Novolog 6 units SC TIDM * Metformin 850 mg PO BIDM HbA1c: 8% (01/14/24) ASSESSMENT: 01/16/24: * Blood sugars better controlled yesterday w/ overcorrection trend continuing at lunch to dinner (179 -> 72 mg/dL) * Will tighten AM parameters and loosen correction factor for rest of day * Fasting blood sugar improved - will continue current fasting blood sugar 01/14/24: * EDILBERTO is a 68 year old male known to pharmacy glycemic service, who presents w/ weakness and confusion likely secondary to COVID-19 infection * Started on remdesivir, but no steroids at this time * No carbs documented at breakfast. Discussed with RN following lunch BSG > 300 mg/dL who confirmed patient had juice prior to POC. * Won't overreact to this value * Will utilize recent blood sugar data to guide initial glycemic management PLAN FOR INPATIENT GLYCEMIC CONTROL: * Hold outpatient oral diabetes medications * Basal insulin * Lantus 30 units SQ daily * Bolus insulin * NovoLog per scale ACHS or Q6hrs while NPO * Goal Range: Low 110 mg/dL - High 140 mg/dL at breakfast, 100 mg/dL - 150 mg/dL at lunch, dinner, HS * Correction Factor: 20 mg/dL/unit at breakfast, 35 mg/dL/unit at lunch, dinner, and HS * Nutritional / Prandial insulin per carb ratio of 1 unit per 6 grams CHO consumed w/ breakfast, 1 unit per 7 grams CHO consumed w/ lunch, dinner, and at HS
--- NOTE | 2024-01-16 15:31 | Hospitalist Progress Note ---
Date of Service January 16, 2024 Assessment & Plan (1) COVID-19: (2) Acute confusion: (3) Generalized weakness: (4) Hypomagnesemia: (5) Parkinsonism: (6) Paroxysmal A-fib: (7) Type 2 diabetes mellitus: (8) Hypothyroidism: Plan 68 yo M presenting from [facility] with hx of DM 2 on insulin, parkinsonism, ambulatory dysfunction on wheelchair (because of his hips but can ambulate short distance with assistance), paroxysmal atrial fibrillation, paroxysmal SVT, hx of prostate cancer, hyperlipidemia, HTN, history of UTI and urosepsis, hypothyroidism, tobacco use, mild cognitive impairment, dilated aortic root presenting with increasing confusion and weakness. COVID-19 Acute confusion Generalized weakness CT head negative UA unremarkable COVID + Chest XR unremarkable Blood Cx x1 set NGTD Likely metabolic encephalopathy secondary to infection/ COVID Hx of parkinsonism and amb. dysfunction however now more weak and lethargic secondary to infection Treated covid infection with remdesivir and supportive measures as needed PT/OT- recommending discharge back to [facility] Improving Hypomagnesemia Replete as needed Constipation CT abdomen pelvis noting a rectosigmoid fecal retention and moderate constipation Bowel regimen with scheduled daily Senokot and Colace as well as daily scheduled MiraLAX Continue to monitor bowel movements Continue other home meds as ordered. Diet: DMII, easy to chew DVT prophylaxis - on Xarelto Dispo: Back to [facility] once medically stable Admission and Anticipated Discharge Date Admission Date: January 13, 2024 Subjective Patient was seen sitting up in bed. Denied acute concerns. Alert and oriented x 1 attempt made to contact listed primary contact [place] with no success Review of Systems Review of Systems: All systems reviewed & are unremarkable except as noted in Subjective Physical Exam Physical Exam: General: Alert, oriented. No acute distress Psych: Appropriate mood and affect Neuro: No gross deficits while sitting up in bed HEENT: NC/AT CV: RRR Resp: Breath sounds clear bilaterally, no increased effort of breathing Abdomen: Soft, nontender Extremities: No edema in lower extremities bilaterally. Results & Data Results & Data Vital Signs (Past 12 Hours) Vital Signs Temp Pulse Pulse Resp BP Pulse Ox O2 Del Method 01/16/24 13:53 60 01/16/24 12:37 60 16 142/91 H 97 Room Air 01/16/24 08:39 36.6 C 57 L 19 137/90 97 Room Air 10/30/24 05:53 63 Diagnostic Findings Chest X-Ray 01/13/24 08:43 SINGLE VIEW CHEST CLINICAL HISTORY: Change in mental status. FINDINGS: An AP, portable, upright chest radiograph is compared to study dated 01/03/2024. The examination is degraded by portable technique and patient rotation. The heart is enlarged noting atherosclerotic calcification of the thoracic aorta. The pulmonary vasculature is nondistended congested. Chronic interstitial thickening is similar to previous. There is bibasilar scarring/atelectasis. No airspace consolidation or large pleural effusion is identified. No pneumothorax is seen. The skeletal structures are osteopenic. The bony thorax is grossly intact. Arthritic change is seen in the shoulders. IMPRESSION: Cardiomegaly with no active disease in the chest. ACT 112: Negative or not required by law. Electronically signed by: Brenton Cid M.D. 01/13/2024 9:[address] 01/13/24 08:43 CT SCAN OF THE BRAIN WITHOUT IV CONTRAST CLINICAL HISTORY: Change in mental status. COMPARISON STUDY: CT of the brain dated 01/03/2024. TECHNIQUE: Unenhanced axial CT scan of the brain is performed from the vertex to the skull base. A dose lowering technique was utilized adhering to the principles of ALARA. FINDINGS: Brain parenchyma: There is age-advanced involutional change noting moderate to advanced confluent subcortical and periventricular microangiopathic disease. There is no hemorrhage, mass effect, or evidence of acute territorial ischemia by CT criteria. Irving-white matter differentiation is preserved. No extra-axial fluid collection is seen. Ventricles, sulci, cisterns: Prominent secondary to involutional change. Intracranial vasculature: There is atherosclerotic calcification of the cavernou s carotid arteries. Calvarium: Unremarkable. Sinuses and mastoids: There is trace mucosal thickening within the maxillary, ethmoid, and sphenoid sinuses. The mastoid air cells are well pneumatized. Orbits: The bony orbits are grossly intact. IMPRESSION: There is no hemorrhage, mass effect, or evidence of acute territorial ischemia by CT criteria. ACT 112: Negative or not required by law. Electronically signed by: Brenton Cid M.D. 01/13/2024 9:17 AM Abdomen/Pelvis CT 01/13/24 08:58 CT SCAN OF THE ABDOMEN AND PELVIS WITH IV CONTRAST CLINICAL HISTORY: Generalized abdominal pain. COMPARISON STUDY: Abdominal CT dated 12/26/2021. TECHNIQUE: Following the IV administration of 94 cc of Optiray 320, CT scan of the abdomen and pelvis is performed from the lung bases to the proximal femora. Images are reviewed in the axial, sagittal, and coronal planes. IV contrast was administered without complication. A dose lowering technique was utilized adhering to the principles of ALARA. There is streak artifact from the arms which could not be elevated above the abdomen. There is also motion artifact. CT DOSE: 2385.34 mGy.cm FINDINGS: Lung bases: The heart is enlarged and without pericardial effusion. The coronary arteries are densely calcified. The lung bases are clear noting dependent scarring/atelectasis. Liver: The contrast-enhanced liver is normal in size, contour, and attenuation. There is no intrahepatic biliary ductal dilatation. The hepatic veins and portal veins are patent. Gallbladder: Unremarkable. Spleen: Normal in size and attenuation. Pancreas: Moderately atrophic and grossly unremarkable. Adrenal glands: Unremarkable. Kidneys: The contrast enhanced kidneys are normal in size and without hydro nephrosis. The kidneys enhance symmetrically. Right renal cyst measuring up to 2.0 cm. Abdominal vasculature: The abdominal aorta is normal in course and caliber noting mild to moderate atherosclerotic calcification. Bowel: There is rectosigmoid fecal retention and moderate constipation. No bowel obstruction is seen. The appendix is well-visualized and normal. Peritoneum: There is no intraperitoneal free air or abdominal ascites. There are fat-containing umbilical and supraumbilical hernias. Lymphadenopathy: None. Pelvic viscera: Evaluation of the pelvis is degraded by streak artifact from orthopedic hardware in the hips. The prostate gland is diminutive and heterogeneous noting brachytherapy implants in place. The bladder is distended, and the wall appears thickened/trabeculated indicating chronic outlet obstruction. Skeletal structures: The skeletal structures are osteopenic. No lytic or blastic lesions are seen. Sclerotic change is noted in the sacroiliac joints and pubic symphysis. There is mild lumbosacral spondylosis. A left hip arthroplasty is in place. There are chronic/healed left-sided rib fractures. There is chronic deformity of the right proximal femur with intertrochanteric lag screws in place. IMPRESSION: 1. No acute infectious or inflammatory findings are identified in the abdomen or pelvis. 2. Rectosigmoid fecal retention and moderate constipation. 3. Cardiomegaly noting coronary artery atherosclerosis. 4. Additional findings as above. ACT 112: Negative or not required by law. Electronically signed by: Brenton Cid M.D. 01/13/2024 10:37 AM
[2024-01-16 20:17] VITALS: RESP 18
[2024-01-17 06:48] LABS: Basophils # (auto) 0.02 K/uL (0.00-0.20); Basophils % (auto) 0.5 %; Eosinophils # (auto) 0.22 K/uL (0.00-0.50); Eosinophils % (auto) 5.4 %; Hematocrit (blood only) 40.3 % (42.0-52.0); Lymphocytes # (auto) 1.61 K/uL (1.20-3.40); Lymphocytes % (auto) 39.5 %; Mean Corpuscular Hemoglobin 30.4 pg (25.0-34.0); Mean Corpuscular Hgb Conc 34.7 g/dL (32.0-36.0); Mean Corpuscular Volume 87.6 fL (80.0-100.0); Monocytes # (auto) 0.36 K/uL (0.11-0.59); Monocytes % (auto) 8.8 %; Neutrophils # (auto) 1.87 K/uL (1.40-6.50); Neutrophils % (auto) 45.8 %; Platelet Count 165 K/uL (130-400); RDW Coefficient of Variation 12.9 % (11.5-14.5); RDW Standard Deviation 41.2 fL (36.4-46.3); White Blood Count 4.08 K/ul (4.8-10.8)
[2024-01-17 07:06] LABS: Anion Gap 7 (3-11); BUN Creatinine Ratio 28.8 (10-20); Blood Urea Nitrogen 23 mg/dl (6-23); Calcium 8.2 mg/dl (8.6-10.3); Carbon Dioxide 25 mmol/L (21-32); Chloride 109 mmol/L (98-107); Creatinine Clr Calc Pharmacy 106.1 ml/min; Glucose 101 mg/dl (70-99(Fasting)); Potassium 3.6 mmol/L (3.5-5.1); Sodium 141 mmol/L (136-145)
[2024-01-17 07:14] LABS: Alanine Aminotransferase < 3 U/L (7-52); Albumin Globulin Ratio 1.2 (0.9-2); Albumin Level 3.3 gm/dl (3.4-5.0); Alkaline Phosphatase 76 U/L (34-104); Aspartate Aminotransferase 17 U/L (13-39); Bilirubin,Total 0.6 mg/dl (0.2-1.0); Globulin 2.7 gm/dl (2.5-4.0); Magnesium 1.7 mg/dl (1.7-2.4); Phosphorus 4.2 mg/dl (2.5-4.9)
[2024-01-17] MEDS: POLYETHYLENE (MIRALAX) 17 GM PACK PO SCH (09:10)
[2024-01-17 12:40] VITALS: BP 145/89; PULSE 54; TEMP 99.3; O2SAT 93
--- NOTE | 2024-01-17 14:38 | Discharge Summary ---
Discharge Summary Date of Service January 17, 2024 Principal Dx & Hospital Course #1 = Principal Diagnosis (1) COVID-19: (2) Acute confusion: (3) Generalized weakness: (4) Hypomagnesemia: (5) Parkinsonism: (6) Paroxysmal A-fib: (7) Type 2 diabetes mellitus: (8) Hypothyroidism: Plan 68 yo M presenting from [facility] with hx of DM 2 on insulin, parkinsonism, ambulatory dysfunction on wheelchair (because of his hips but can ambulate short distance with assistance), paroxysmal atrial fibrillation, paroxysmal SVT, hx of prostate cancer, hyperlipidemia, HTN, history of UTI and urosepsis, hypothyroidism, tobacco use, mild cognitive impairment, dilated aortic root presenting with increasing confusion and weakness. COVID-19 Acute confusion Generalized weakness CT head negative UA unremarkable COVID + Chest XR unremarkable Blood Cx x1 set NGTD Likely metabolic encephalopathy secondary to infection/ COVID Hx of parkinsonism and amb. dysfunction however now more weak and lethargic secondary to infection Treated covid infection with remdesivir and supportive measures as needed PT/OT- recommending discharge back to [facility] Pt back to baseline on discharge. PCP followup Hypomagnesemia Repleted as needed Mag of 1.[address] abdomen pelvis noting a rectosigmoid fecal retention and moderate constipation Bowel regimen with scheduled daily Senokot and Colace as well as daily scheduled MiraLAX. Also given a fleet enema while hospitalized. Pt discharged with bowel regimen of home senna and docusate as well as miralax. Had small BM before discharge. PCP followup Continue other home meds as ordered. Notes For Next Care Provider Please follow up on pt's constipation. Discharged with bowel regimen of daily senna, docusate and miralax. Medication Changes From Visit miralax daily in addition to home senna and docusate Admission HPI Per Admitting Provider 68 yo M who is from [facility] with hx of DM 2 on insulin, parkinsonism, ambulatory dysfunction on wheelchair (because of his hips but can ambulate short distance with assistance), paroxysmal atrial fibrillation, paroxysmal SVT, hx of prostate cancer, hyperlipidemia, HTN, history of UTI and urosepsis, hypothyroidism, tobacco use, mild cognitive impairment, dilated aortic root presents with confusion and weakness. In the ED pt was found to be positive for COVID. He has hx of urosepsis, UA not obtained in the ED. Pending collection. Blood cultx ordered. CT head, CXR, CT abd./pelvis negative for acute pathology. Patient's caregiver present at the bedside and helps provide history. Yesterday she was with him and he was his usual self, she took him for a ride. However today pt was reported to not act "himself", and very tired and week. Also today he started to have a cough. Pt denies any dysuria or burning w/ urination.Denies any fever, chills, abdominal pain, or nausea. Denies any chest pain or shortness of breath. Admission Exam Per Admitting Provider Constitutional: WD/WN, vitals as above Eyes: PERRL, conjunctivae normal, anicteric sclerae ENMT: external ear and nose normal, oropharynx normal Neck: supple Respiratory: normal respiratory effort and + cough Auscultation: + rhonchi (minimal); no crackles and no wheezes Cardiovascular: RRR, no murmur, no edema Chest (Breasts): Chest: normal inspection of chest Gastrointestinal (Abdomen): Inspection/Auscultation: abdomen normal to inspection and normal bowel sounds Percussion/Palpation: abdomen soft; abdomen nontender Musculoskeletal: no cyanosis or clubbing, extremities motor strength 5/5 Skin: no rashes, warm and dry Neurologic: PERRL, EOMI, accommodation nl, no face palsy, no dysarthria Psychiatric: A+Ox3, euthymic affect Discharge Exam General: Alert, oriented. No acute distress Psych: Appropriate mood and affect Neuro: No gross deficits while sitting up in bed HEENT: NC/AT CV: RRR Resp: Breath sounds clear bilaterally, no increased effort of breathing Abdomen: Soft, nontender Extremities: No edema in lower extremities bilaterally. Updated Medication List Medication Instructions Recorded Confirmed Type Wheeled Walker #1 ea 03/21/21 12/13/23 Rx cholecalciferol (vitamin D3) 50 2,000 unit PO DAILY #90 caps 01/23/22 01/13/24 Rx mcg (2,000 unit) capsule rivaroxaban 20 mg tablet (Xarelto) 20 mg PO HS #30 tabs 01/23/22 01/13/24 Rx acetaminophen 500 mg tablet 1,000 mg (2 x 500 mg) PO TID #90 06/20/22 01/13/24 Rx (Tylenol Extra Strength) tabs amiodarone 200 mg tablet 200 mg PO DAILY 09/04/22 01/13/24 History blood sugar diagnostic (OneTouch #200 ea 11/02/22 12/13/23 Rx Ultra Test strips) docusate sodium 100 mg capsule 100 mg PO DAILY 11/17/22 01/13/24 History Wheelchair (Manual) (Manual #1 ea 01/02/23 12/13/23 Rx Wheelchair) atorvastatin 40 mg tablet 40 mg PO HS 02/16/23 01/13/24 History sennosides 8.6 mg-docusate sodium 1 tab-cap PO DAILY 02/16/23 01/13/24 History 50 mg capsule (Senna Plus) tramadol 50 mg tablet 25 mg (1/2 x 50 mg) PO TID PRN 02/19/23 01/13/24 Rx pain #30 tabs Wheelchair (Manual) #1 ea 02/21/23 12/13/23 Rx insulin aspart U-100 100 unit/mL 6 unit (0.06 mL) subcut TIDWMEAL 07/09/23 01/13/24 Rx (3 mL) subcutaneous pen (Novolog #30 mL FlexPen U-100 Insulin aspart) cranberry extract 500 mg capsule 500 mg PO BIDM 09/12/23 01/13/24 History levothyroxine 125 mcg tablet 125 mcg PO DAILYBB 09/12/23 01/13/24 History lisinopril 30 mg tablet 30 mg PO QAM 09/12/23 01/13/24 History loperamide 2 mg capsule 2 mg PO Q6H PRN Diarrhea 09/12/23 01/13/24 History metformin 850 mg tablet 850 mg PO BIDM 09/12/23 01/13/24 History amlodipine 5 mg tablet (Norvasc) 5 mg PO QAM #30 tabs 09/20/23 01/13/24 Rx magnesium chloride 64 mg 64 mg PO DAILY #30 tabs 09/20/23 01/13/24 Rx (magnesium chloride) tablet,delayed release (Mag 64) carbidopa ER 36.25 mg-levodopa 145 1 cap PO QID 30 days #120 caps 11/09/23 01/13/24 Rx mg capsule,extended release (Rytary) Saccharomyces boulardii 250 mg 250 mg PO BID 11/20/23 01/13/24 History capsule (Florastor) pen needle, diabetic, safety 30 #200 ea 12/14/23 Rx gauge x 1/3" insulin aspart U-100 100 unit/mL 1 sliding scale dose subcut 01/13/24 01/13/24 History (3 mL) subcutaneous pen (Novolog USEASDIRECTD FlexPen U-100 Insulin aspart) insulin glargine 100 unit/mL (3 10 unit subcut PM 01/13/24 01/13/24 History mL) subcutaneous pen (Lantus Solostar U-100 Insulin) insulin glargine 100 unit/mL (3 30 unit subcut QAM 01/13/24 01/13/24 History mL) subcutaneous pen (Lantus Solostar U-100 Insulin) nicotine 14 mg/24 hr daily 1 patch transdermal QAM 01/13/24 01/13/24 History transdermal patch nystatin 100,000 unit/gram topical 1 applic topical BID 01/13/24 01/13/24 History cream polyethylene glycol 3350 17 17 g PO DAILY #119 grams 01/17/24 Rx gram/dose oral powder (Miralax) Hospital Stay Data Consultations 01/13/24 14:05 ED Decision to Admit Stat 01/14/24 08:00 Consult Cardiology Routine Diagnostic Imagining Performed 01/13/24 08:43 CT head/brain wo con Stat 01/13/24 08:58 CT Abd and Pelvis [CT abd pelvis IV con only] Stat Chest X-Ray 01/13/24 08:43 SINGLE VIEW CHEST CLINICAL HISTORY: Change in mental status. FINDINGS: An AP, portable, upright chest radiograph is compared to study dated 01/03/2024. The examination is degraded by portable technique and patient rotation. The heart is enlarged noting atherosclerotic calcification of the thoracic aorta. The pulmonary vasculature is nondistended congested. Chronic interstitial thickening is similar to previous. There is bibasilar scarring/atelectasis. No airspace consolidation or large pleural effusion is identified. No pneumothorax is seen. The skeletal structures are osteopenic. The bony thorax is grossly intact. Arthritic change is seen in the shoulders. IMPRESSION: Cardiomegaly with no active disease in the chest. ACT 112: Negative or not required by law. Electronically signed by: Brenton Cid M.D. 01/13/2024 9:[address] 01/13/24 08:43 CT SCAN OF THE BRAIN WITHOUT IV CONTRAST CLINICAL HISTORY: Change in mental status. COMPARISON STUDY: CT of the brain dated 01/03/2024. TECHNIQUE: Unenhanced axial CT scan of the brain is performed from the vertex to the skull base. A dose lowering technique was utilized adhering to the principles of ALARA. FINDINGS: Brain parenchyma: There is age-advanced involutional change noting moderate to advanced confluent subcortical and periventricular microangiopathic disease. There is no hemorrhage, mass effect, or evidence of acute territorial ischemia by CT criteria. Irving-white matter differentiation is preserved. No extra-axial fluid collection is seen. Ventricles, sulci, cisterns: Prominent secondary to involutional change. Intracranial vasculature: There is atherosclerotic calcification of the cavernous carotid arteries. Calvarium: Unremarkable. Sinuses and mastoids: There is trace mucosal thickening within the maxillary, ethmoid, and sphenoid sinuses. The mastoid air cells are well pneumatized. Orbits: The bony orbits are grossly intact. IMPRESSION: There is no hemorrhage, mass effect, or evidence of acute territori al ischemia by CT criteria. ACT 112: Negative or not required by law. Electronically signed by: Brenton Cid M.D. 01/13/2024 9:17 AM Abdomen/Pelvis CT 01/13/24 08:58 CT SCAN OF THE ABDOMEN AND PELVIS WITH IV CONTRAST CLINICAL HISTORY: Generalized abdominal pain. COMPARISON STUDY: Abdominal CT dated 12/26/2021. TECHNIQUE: Following the IV administration of 94 cc of Optiray 320, CT scan of the abdomen and pelvis is performed from the lung bases to the proximal femora. Images are reviewed in the axial, sagittal, and coronal planes. IV contrast was administered without complication. A dose lowering technique was utilized adhering to the principles of ALARA. There is streak artifact from the arms which could not be elevated above the abdomen. There is also motion artifact. CT DOSE: 2385.34 mGy.cm FINDINGS: Lung bases: The heart is enlarged and without pericardial effusion. The coronary arteries are densely calcified. The lung bases are clear noting dependent scarring/atelectasis. Liver: The contrast-enhanced liver is normal in size, contour, and attenuation. There is no intrahepatic biliary ductal dilatation. The hepatic veins and portal veins are patent. Gallbladder: Unremarkable. Spleen: Normal in size and attenuation. Pancreas: Moderately atrophic and grossly unremarkable. Adrenal glands: Unremarkable. Kidneys: The contrast enhanced kidneys are normal in size and without hydronephrosis. The kidneys enhance symmetrically. Right renal cyst measuring up to 2.0 cm. Abdominal vasculature: The abdominal aorta is normal in course and caliber noting mild to moderate atherosclerotic calcification. Bowel: There is rectosigmoid fecal retention and moderate constipation. No bowel obstruction is seen. The appendix is well-visualized and normal. Peritoneum: There is no intraperitoneal free air or abdominal ascites. There are fat-containing umbilical and supraumbilical hernias. Lymphadenopathy: None. Pelvic viscera: Evaluation of the pelvis is degraded by streak artifact from orthopedic hardware in the hips. The prostate gland is diminutive and heterogeneous noting brachytherapy implants in place. The bladder is distended, and the wall appears thickened/trabeculated indicating chronic outlet obstruction. Skeletal structures: The skeletal structures are osteopenic. No lytic or blastic lesions are seen. Sclerotic change is noted in the sacroiliac joints and pubic symphysis. There is mild lumbosacral spondylosis. A left hip arthroplasty is in place. There are chronic/healed left-sided rib fractures. There is chronic deformity of the right proximal femur with intertrochanteric lag screws in place. IMPRESSION: 1. No acute infectious or inflammatory findings are identified in the abdomen or pelvis. 2. Rectosigmoid fecal retention and moderate constipation. 3. Cardiomegaly noting coronary artery atherosclerosis. 4. Additional findings as above. ACT 112: Negative or not required by law. Electronically signed by: Brenton Cid M.D. 01/13/2024 10:37 AM Discharge Instructions Given to Patient (Per Discharging Provider) Mr. Kumar, You are being discharged back to your living facility. You are noted to also be constipated. We recommend that you continue with a daily bowel regimen as prescribed with your daily docusate and senna pill as well as the prescribed miralax until you have a bowel Movement. You can then use the miralax on an NEEDED basis after that. Please keep close follow up with your primary care provider after discharge. Please do not hesitate to come back to the emergency room if your symptoms worsen or return. It was a pleasure taking care of you while you were here. Total Time Total Time Spent Total Time Spent (In Minutes): 65
[2024-01-17] MEDS: SOD PHOSPHATE/SOD BIPHOSPHATE ENEMA 132 ML BTL PR STA (15:15)
== END 2024-01-17 16:47 | disposition home or self-care (01) | DRG 177 ==
LOC: ED 08:32 → SUATTDRO 14:19 → 4W 14:19

== ENCOUNTER 2024-09-21 22:53 | Inpatient (IN) ==
[2024-09-21] MEDS: DEXTROSE 50% 50 ML SYRINGE IV ONE ×2 (23:07→23:24)
[2024-09-21] MEDS: SODIUM CHLORIDE 0.9% 1,000 ML IV SCH (23:09)
[2024-09-21 23:18] LABS: Hematocrit (blood only) 43.2 % (42.0-52.0); Hemoglobin 14.6 g/dl (14.0-18.0); Immature Granulocytes # (auto) 0.02 K/uL (0.01-0.20); Immature Granulocytes % (auto) 0.3 %; Mean Corpuscular Hemoglobin 30.7 pg (25.0-34.0); Mean Corpuscular Volume 90.8 fL (80.0-100.0); Platelet Count 189 K/uL (130-400); RDW Standard Deviation 44.3 fL (36.4-46.3); Red Blood Count 4.76 M/uL (4.70-6.10); White Blood Count 7.77 K/ul (4.8-10.8)
--- NOTE | 2024-09-21 23:43 | Emergency Department Note ---
History of Present Illness General Chief complaint: Fall Stated complaint: FALL OUT OF BED, HYPOGLYCEMIA Time Seen by Provider: 09/21/24 22:58 History of Present Illness This is a 69-year-old male presenting to the emergency department for evaluation of hypoglycemia and possible fall. The patient is at [facility] and he was discovered on the floor at the facility. EMS was contacted and patient's sugar was in the 50s. He was given oral glucose, however his sugar dropped into the 40s and now he arrives to the ER for evaluation. He is an insulin-dependent diabetic with baseline dementia. There is an unfortunate past history of diabetic coma. Patient is able to answer some questions but is quite agitated. History is limited. On arrival patient's sugar is 52. Home Medications Medication Instructions Recorded Confirmed Type Wheeled Walker #1 ea 03/21/21 08/14/24 Rx cholecalciferol (vitamin D3) 50 2,000 unit PO DAILY #90 caps 01/23/22 08/14/24 Rx mcg (2,000 unit) capsule rivaroxaban 20 mg tablet (Xarelto) 20 mg PO HS #30 tabs 01/23/22 08/14/24 Rx acetaminophen 500 mg tablet 1,000 mg (2 x 500 mg) PO TID #90 06/20/22 08/14/24 Rx (Tylenol Extra Strength) tabs blood sugar diagnostic (OneTouch #200 ea 11/02/22 08/14/24 Rx Ultra Test strips) docusate sodium 100 mg capsule 100 mg PO DAILY 11/17/22 08/14/24 History atorvastatin 40 mg tablet 40 mg PO HS 02/16/23 08/14/24 History Wheelchair (Manual) #1 ea 02/21/23 08/14/24 Rx insulin aspart U-100 100 unit/mL 6 unit (0.06 mL) subcut TIDWMEAL 07/09/23 08/14/24 Rx (3 mL) subcutaneous pen (Novolog #30 mL FlexPen U-100 Insulin aspart) cranberry extract 500 mg capsule 500 mg PO BIDM 09/12/23 08/14/24 History levothyroxine 125 mcg tablet 125 mcg PO DAILYBB 09/12/23 08/14/24 History loperamide 2 mg capsule 2 mg PO Q6H PRN Diarrhea 09/12/23 08/14/24 History metformin 850 mg tablet 850 mg PO BIDM 09/12/23 08/14/24 History magnesium chloride 64 mg 64 mg PO DAILY #30 tabs 09/20/23 08/14/24 Rx (magnesium chloride) tablet,delayed release (Mag 64) Saccharomyces boulardii 250 mg 250 mg PO DAILY 11/20/23 08/14/24 History capsule (Florastor) pen needle, diabetic, safety 30 #200 ea 12/14/23 08/14/24 Rx gauge x 1/3" insulin aspart U-100 100 unit/mL 1 sliding scale dose subcut 01/13/24 08/14/24 History (3 mL) subcutaneous pen (Novolog USEASDIRECTD FlexPen U-100 Insulin aspart) insulin glargine 100 unit/mL (3 18 unit subcut QAM 01/13/24 08/14/24 History mL) subcutaneous pen (Lantus Solostar U-100 Insulin) insulin glargine 100 unit/mL (3 34 unit subcut PM 01/13/24 08/14/24 History mL) subcutaneous pen (Lantus Solostar U-100 Insulin) nicotine 14 mg/24 hr daily 1 patch transdermal QAM 01/13/24 08/14/24 History transdermal patch polyethylene glycol 3350 17 17 g PO DAILY #119 grams 01/17/24 08/14/24 Rx gram/dose oral powder (Miralax) hydroxyzine HCl 25 mg tablet 25 mg PO BID PRN nausea and 02/22/24 08/14/24 Rx vomiting #12 tabs lisinopril 30 mg tablet 30 mg PO QAM #180 tabs 07/16/24 08/14/24 Rx calcium carbonate (Calcium 600) 600 mg PO BID 08/14/24 08/14/24 History sennosides 8.6 mg tablet (senna) 8.6 mg PO DAILY 08/14/24 08/14/24 History tramadol 50 mg tablet 25 mg PO Q8 PRN .severe pain 08/14/24 08/14/24 History amiodarone 100 mg tablet 100 mg PO DAILY #30 tabs 08/26/24 Rx Allergies Allergy/AdvReac Type Severity Reaction Status Date / Time amlodipine Allergy Severe Hives Verified 07/15/24 10:24 Past Med/Surg History Problem List Hypoglycemia (Acute) Lactic acidosis Hypoglycemia Unconsciousness Fecal impaction Vascular dementia Dementia Weakness (Acute) HTN (hypertension) (Acute) AMS (altered mental status) (Acute) Cerebral ventriculomegaly Edema History of prostate cancer Aortic stenosis Hypomagnesemia (Acute) [facility] resident Hypertension (Acute) Falls frequently Lower urinary tract symptoms Parkinsonism Paroxysmal A-fib (07/2020) Paroxysmal SVT (supraventricular tachycardia) (Acute) Osteoporosis Dyslipidemia Constipation Lumbar back pain Gait apraxia Cardiomyopathy (07/2020) Insomnia Vitamin D deficiency Chews tobacco Medical History Complicated UTI (urinary tract infection) History of alcoholism no alcohol in >1 year Tubular adenoma of colon Pulmonary nodule Leah's thyroiditis Erectile dysfunction Dilated aortic root Cognitive impairment Closed head injury Renal cyst Subcapital fracture of left hip 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 Septic prepatellar bursitis (07/2020) Surgical History S/P ORIF (open reduction internal fixation) fracture Rip hip 06/2022, cannulated screws x3 History of total left hip arthroplasty 12-20-21 Left Total Hip Arthroplasty-Uncemented(Left) - Jeremy Baker DO History of shoulder surgery Left History of left knee surgery Family History Mother Cancer Grandmother (Paternal) Stroke Grandfather (Paternal) Stroke Other Myocardial infarction Denies family history of Ovarian cancer Prostate cancer Breast cancer Colorectal cancer Social History Smoking Status: Former smoker Tobacco Type: Smokeless Tobacco (Dip or Chew) Age Started Using Tobacco: 16; Age Quit Using Tobacco: 26; Do You Dip or Chew Tobacco: Yes; Preferred Language: Ugandan Communication Ability: Effective Communication Ability Comment: unable to obtain d/t patien condition. 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 Beliefs That Will Affect Care: None marital status: Single Current Living Situation: Group Home Current Living Situation Comment: [facility] current occupational status: retired current occupation: [employer] How many Children do You have: 0 Feels Safe at Home: Yes Childhood Exposure to Second-Hand Smoke: Yes Diet: diabetic caffeine: Yes (iced tea ) Dental Care, Regularly: No Physical Activity Frequency: Does not Exercise Seatbelt Use: always Sunscreen Use: No Assistive Devices: Wheelchair Review of Systems A total of 10 systems reviewed and were otherwise negative Physical Exam Vital Signs Vital Signs - 24 hr 09/21/24 23:06 09/21/24 23:19 09/22/24 00:00 Temperature 37.1 C 36.9 C Temperature Source Oral Oral Pulse Rate 68 63 Pulse Rate [Finger] 62 Respiratory Rate 18 18 Respiratory Effort / Characteristics Non-Labored Spontaneous Respiratory Depth Normal Respiratory Pattern Regular Blood Pressure 203/137 H Blood Pressure [Right Arm] 163/126 H Blood Pressure Mean 159 Blood Pressure Mean [Right Arm] 138 Pulse Oximetry 97 99 Oxygen Delivery Method Room Air Room Air Sepsis Recent Fever Within 48 Hours No Sepsis New/Unexplained Change in Mental Status N/A Sepsis Action Taken by Nursing No Action Required 09/22/24 00:04 09/22/24 01:00 09/22/24 02:00 Temperature Temperature Source Pulse Rate Pulse Rate [Finger] 64 56 L 65 Respiratory Rate 18 20 18 Respiratory Effort / Characteristics Respiratory Depth Respiratory Pattern Blood Pressure Blood Pressure [Right Arm] 163/126 H 168/108 H 197/132 H Blood Pressure Mean Blood Pressure Mean [Right Arm] 138 128 153 Pulse Oximetry 98 100 97 Oxygen Delivery Method Room Air Room Air Room Air Sepsis Recent Fever Within 48 Hours Sepsis New/Unexplained Change in Mental Status Sepsis Action Taken by Nursing VITALS: Vitals are noted on the nurse's note and reviewed by myself. Vital signs stable. GENERAL: White male who is agitated and somewhat confused appearing HEAD: Normocephalic atraumatic. MOUTH: Mucous membranes moist. Tonsils are not enlarged. Pharynx without erythema, blood, or exudate. Uvula midline. Airway patent. NECK: Supple without nuchal rigidity. No lymphadenopathy. No thyromegaly. Cervical spine is nontender. HEART: Regular rate and rhythm without murmurs gallops or rubs. LUNGS: Clear to auscultation bilaterally without wheezes, rales or rhonchi. No retractions or accessory muscle use. ABDOMEN: Positive normal bowel sounds x 4. Soft, nontender, without masses or organomegaly. MUSCULOSKELETAL: No muscle atrophy, erythema, or edema noted. Full range of motion in all extremities. Abrasion noted across the right knee. NEURO: Patient was not oriented. He is somewhat confused and agitated on arrival. Course Administered Medications Vancomycin HCl 2,000 mg/ (Sodium Chloride) 540 mls @ 200 mls/hr IV NOW ONE Stop: 09/22/24 02:59 Last Infusion: 09/22/24 02:19 Dose: Infused Documented By: Admin: 09/22/24 01:11 Dose: 200 mls/hr Documented By: SUZANNE Discontinued Medications Dextrose (Dextrose 50% 50 Ml Syringe) Confirm Administered Dose 50 ml IV .STK- MED ONE Stop: 09/21/24 23:00 Last Admin: 09/21/24 23:07 Dose: 50 ml Documented By: SUZANNE Dextrose (Dextrose 50% 50 Ml Syringe) 50 ml IV NOW ONE Stop: 09/21/24 23:05 Last Admin: 09/21/24 23:24 Dose: Not Given Documented By: SUZANNE Sodium Chloride (Nss) 1,000 mls @ 999 mls/hr IV .Q1H1M [facility] [place] Stop: 09/22/24 00:15 Last Infusion: 09/22/24 00:21 Dose: Infused Documented By: Admin: 09/21/24 23:09 Dose: 999 mls/hr Documented By: SUZANNE Piperacillin Sod/Tazobactam Sod (Zosyn) 4.5 gm in 100 mls @ 200 mls/hr IV NOW ONE; Protocol Stop: 09/22/24 00:47 Last Infusion: 09/22/24 01:10 Dose: Infused Documented By: Admin: 09/22/24 00:39 Dose: 200 mls/hr Documented By: SUZANNE Sodium Chloride (Nss) 1,000 mls @ 999 mls/hr IV .Q1H1M [facility] [place] Stop: 09/22/24 02:30 Last Infusion: 09/22/24 02:27 Dose: Infused Documented By: Admin: 09/22/24 01:14 Dose: 999 mls/hr Documented By: Infusion: 09/22/24 01:14 Dose: Infused Documented By: Admin: 09/22/24 00:40 Dose: 999 mls/hr Documented By: SUZANNE Lorazepam (Lorazepam 2 Mg/1 Ml Vial) 1 mg IV NOW STA Stop: 09/21/24 23:04 Last Admin: 09/21/24 23:45 Dose: Not Given Documented By: SUZANNE Medical Decision Making Differential Diagnosis Differential diagnosis: Etiologies such as sepsis, UTI, pneumonia, bacteremia, metabolic process, electrolyte abnormalities, cardiac sources, intracerebral event, intra-abdominal process, toxicological process, neurologic process, as well as others were entertained. Laboratory Data 09/21/24 23:03 09/21/24 23:03 Lab Results 09/21/24 09/21/24 09/21/24 Range/Units 23:00 23:03 23:16 WBC 7.77 (4.8-10.8) K/ul RBC 4.76 (4.70-6.10) M/uL Hgb 14.6 (14.0-18.0) g/dl Hct 43.2 (42.0-52.0) % MCV 90.8 (80.0-100.0) fL MCH 30.7 (25.0-34.0) pg MCHC 33.8 (32.0-36.0) g/dL RDW Std Deviation 44.3 (36.4-46.3) fL RDW Coeff of Robyn 13.2 (11.5-14.5) % Plt Count 189 (130-400) K/uL MPV 9.3 L (9.4-12.4) fL Immature Gran % (Auto) 0.3 % Neut % (Auto) 46.4 % Lymph % (Auto) 41.1 % [place] % (Auto) 8.8 % Eos % (Auto) 2.8 % Baso % (Auto) 0.6 % Neut # (Auto) 3.61 (1.40-6.50) K/uL Lymph # (Auto) 3.19 (1.20-3.40) K/uL [place] # (Auto) 0.68 H (0.11-0.59) K/uL Eos # (Auto) 0.22 (0.00-0.50) K/uL Baso # (Auto) 0.05 (0.00-0.20) K/uL Immature Gran # (Auto) 0.02 (0.01-0.20) K/uL Sodium 144 (136-145) mmol/L Potassium 3.9 (3.5-5.1) mmol/L Chloride 105 (98-107) mmol/L Carbon Dioxide 31 (21-32) mmol/L Anion Gap 8 (3-11) BUN 16 (6-23) mg/dl Creatinine 1.07 (0.6-1.4) mg/dl Est Cr Clr Drug Dosing 79.6 ml/min eGFR 75.12 BUN/Creatinine Ratio 15.0 (10-20) Glucose 49 L* (70-99(Fasting)) mg/dl POC Glucose 52 L* 121 H (70-99) mg/dl Lactate (0.4-2.0) mmol/L Calcium 9.5 (8.6-10.3) mg/dl Magnesium 1.2 L (1.7-2.4) mg/dl Total Bilirubin 0.5 (0.2-1.0) mg/dl AST 12 L (13-39) U/L ALT 10 (7-52) U/L Alkaline Phosphatase 64 (34-104) U/L Total Creatine Kinase 55 (30-223) U/L Troponin I High Sens 11.2 (0-20) pg/ml Total Protein 6.9 (6.0-8.3) gm/dl Albumin 4.1 (3.4-5.0) gm/dl Globulin 2.8 (2.5-4.0) gm/dl Albumin/Globulin Ratio 1.5 (0.9-2) Lipase 25 (11-82) U/L TSH 5.788 H (0.300-4.500) uIu/ml Free T4 1.49 (0.61-1.60) ng/dl 09/21/24 09/22/24 09/22/24 Range/Units 23:32 00:18 01:19 WBC (4.8-10.8) K/ul RBC (4.70-6.10) M/uL Hgb (14.0-18.0) g/dl Hct (42.0-52.0) % MCV (80.0-100.0) fL MCH (25.0-34.0) pg MCHC (32.0-36.0) g/dL RDW Std Deviation (36.4-46.3) fL RDW Coeff of Robyn (11.5-14.5) % Plt Count (130-400) K/uL MPV (9.4-12.4) fL Immature Gran % (Auto) % Neut % (Auto) % Lymph % (Auto) % [place] % (Auto) % Eos % (Auto) % Baso % (Auto) % Neut # (Auto) (1.40-6.50) K/uL Lymph # (Auto) (1.20-3.40) K/uL [place] # (Auto) (0.11-0.59) K/uL Eos # (Auto) (0.00-0.50) K/uL Baso # (Auto) (0.00-0.20) K/uL Immature Gran # (Auto) (0.01-0.20) K/uL Sodium (136-145) mmol/L Potassium (3.5-5.1) mmol/L Chloride (98-107) mmol/L Carbon Dioxide (21-32) mmol/L Anion Gap (3-11) BUN (6-23) mg/dl Creatinine (0.6-1.4) mg/dl Est Cr Clr Drug Dosing ml/min eGFR BUN/Creatinine Ratio (10-20) Glucose (70-99(Fasting)) mg/dl POC Glucose 100 H 113 H (70-99) mg/dl Lactate 2.7 H* (0.4-2.0) mmol/L Calcium (8.6-10.3) mg/dl Magnesium (1.7-2.4) mg/dl Total Bilirubin (0.2-1.0) mg/dl AST (13-39) U/L ALT (7-52) U/L Alkaline Phosphatase (34-104) U/L Total Creatine Kinase (30-223) U/L Troponin I High Sens (0-20) pg/ml Total Protein (6.0-8.3) gm/dl Albumin (3.4-5.0) gm/dl Globulin (2.5-4.0) gm/dl Albumin/Globulin Ratio (0.9-2) Lipase (11-82) U/L TSH (0.300-4.500) uIu/ml Free T4 (0.61-1.60) ng/dl 09/22/24 Range/Units 01:38 WBC (4.8-10.8) K/ul RBC (4.70-6.10) M/uL Hgb (14.0-18.0) g/dl Hct (42.0-52.0) % MCV (80.0-100.0) fL MCH (25.0-34.0) pg MCHC (32.0-36.0) g/dL RDW Std Deviation (36.4-46.3) fL RDW Coeff of Robyn (11.5-14.5) % Plt Count (130-400) K/uL MPV (9.4-12.4) fL Immature Gran % (Auto) % Neut % (Auto) % Lymph % (Auto) % [place] % (Auto) % Eos % (Auto) % Baso % (Auto) % Neut # (Auto) (1.40-6.50) K/uL Lymph # (Auto) (1.20-3.40) K/uL [place] # (Auto) (0.11-0.59) K/uL Eos # (Auto) (0.00-0.50) K/uL Baso # (Auto) (0.00-0.20) K/uL Immature Gran # (Auto) (0.01-0.20) K/uL Sodium (136-145) mmol/L Potassium (3.5-5.1) mmol/L Chloride (98-107) mmol/L Carbon Dioxide (21-32) mmol/L Anion Gap (3-11) BUN (6-23) mg/dl Creatinine (0.6-1.4) mg/dl Est Cr Clr Drug Dosing ml/min eGFR BUN/Creatinine Ratio (10-20) Glucose (70-99(Fasting)) mg/dl POC Glucose (70-99) mg/dl Lactate 2.1 H* (0.4-2.0) mmol/L Calcium (8.6-10.3) mg/dl Magnesium (1.7-2.4) mg/dl Total Bilirubin (0.2-1.0) mg/dl AST (13-39) U/L ALT (7-52) U/L Alkaline Phosphatase (34-104) U/L Total Creatine Kinase (30-223) U/L Troponin I High Sens (0-20) pg/ml Total Protein (6.0-8.3) gm/dl Albumin (3.4-5.0) gm/dl Globulin (2.5-4.0) gm/dl Albumin/Globulin Ratio (0.9-2) Lipase (11-82) U/L TSH (0.300-4.500) uIu/ml Free T4 (0.61-1.60) ng/dl Imaging Data Radiologist's Impression: Head CT 09/21/24 23:31 EXAM: CT head/brain wo con CLINICAL HISTORY: AMS, Fall, hypoglycemia TECHNIQUE: Multiple axial images are obtained from the skull base to the vertex without contrast. CT scan was performed according to ALARA (as low as reasonable achievable). 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 FINDINGS: There is cerebral atrophy. No evidence of space occupying lesion, hemorrhage, edema, mass effect, midline shift, extra axial collection, or hydrocephalus is noted. Basal cisterns are symmetric and normal in size and configuration. There are scattered periventricular hypodensities as can be seen with chronic microvascular ischemic changes. The hoff-white matter differentiation is preserved. Visualized paranasal sinuses and mastoid air cells are well aerated. Orbital contents are within normal limits. Bony structures are intact. IMPRESSION: 1. No evidence of acute intracranial abnormality is demonstrated. 2. Chronic microvascular ischemic changes.-stable. 3. Cerebral atrophy.-stable. MRI brain for better evaluation if clinically indicated. Electronically signed by Jerry Shi 09-22-2024 12:38 AM MDM Narrative Physical exam and history were performed. Nursing notes, EMR, and Medication List were personally reviewed. No social concerns were identified as barriers to patients care. History was provided by the Patient and EMS. Patient appears to have had a hypoglycemic event this evening. History is somewhat limited from a prehospital standpoint. On arrival the patient is somewhat agitated and was given IV Ativan for comfort. IV access was established and labs were obtained. He was given D50 as glucose on arrival was 52. Blood cultures and lactic were performed. Urine was ordered. An order was placed for continuous cardiac monitoring. The monitor shows a rate of 78 with normal sinus rhythm. Patient blood work is as above and was reviewed. He does not have significant elevated white blood cell count, gross anemia, bandemia, or significant electrolyte imbalance. Transaminases not diagnostic. Lab glucose was initially 52, but did return over 100. Lactic is elevated at 2.7. Urine culture is pending. Due to the altered mental status patient was given a sepsis fluid bolus as well as initial orders for vancomycin and Zosyn. CT scan of the head was performed and independently reviewed by myself and radiology showing no acute process. Case was discussed with my attending, who also remained involved in care decision making. The patient does not appear well for discharge home and escalation of care is felt to be necessary. Patient has been altered with hyperglycemic episodes. He may have infection causing some of his symptoms, although underlying etiology is still considered. Case was discussed with the on-call hospitalist team, who agreed to evaluate the patient here in the ER. Please see their dictation for further patient course, plan, disposition. The chart was completed utilizing [employer] Speech Voice Recognition Software. Grammatical errors, random word insertions, pronoun errors, and incomplete sentences are an occasional consequence of this system due to software limitations, ambient noise, and hardware issues. Any formal questions or concerns about the content, text, or information contained within the body of this dictation should be directly addressed to the provider for clarification. Impression & Plan AMS (altered mental status), Hypomagnesemia, Hypoglycemia Discharge Plan Visit Data Chief Complaint: Fall Stated Complaint: FALL OUT OF BED, HYPOGLYCEMIA ED Provider: Obed Lucia ED Midlevel Provider: Lars Saini Discharge Problem: AMS (altered mental status), Hypomagnesemia, Hypoglycemia Patient Disposition: Being Evaluated by Hospitalist Condition: Fair Forms Stand Alone Forms: [facility] [employer] Prescriptions Prescriptions: No Action (DME) Wheeled Walker Misc See Rx Instructions .Route Qty: 1 0RF Rx Instructions: As directed. with seat if possible (DME) OneTouch Ultra Test Strip See Rx Instructions .Route Qty: 200 11RF Rx Instructions: Test blood sugars 4 time a day (DME) Wheelchair (Manual) Device See Rx Instructions .Route Qty: 1 0RF Rx Instructions: Standard wheelchair with leg rests. [id number] exam on 02/16/23. Estimated length of need: Lifetime. insulin aspart U-100 [Novolog FlexPen U-100 Insulin] 100 unit/mL (3 mL) insulin pen 6 unit subcut TIDWMEAL Qty: 30 3RF (DME) pen needle, diabetic, safety 30 gauge x 1/3" needle See Rx Instructions .Route Qty: 200 11RF Rx Instructions: use for insuling injections up to eight times daily lisinopril 30 mg tablet 30 mg PO QAM Qty: 180 3RF Saccharomyces boulardii [Florastor] 250 mg capsule 250 mg PO DAILY docusate sodium 100 mg capsule 100 mg PO DAILY cholecalciferol (vitamin D3) 50 mcg (2,000 unit) capsule 2,000 unit PO DAILY Qty: 90 3RF Xarelto 20 mg tablet 20 mg PO HS Qty: 30 11RF acetaminophen [Tylenol Extra Strength] 500 mg Tablet 1,000 mg PO TID Qty: 90 0RF atorvastatin 40 mg tablet 40 mg PO HS nicotine 14 mg/24 hr Patch 24 Hour 1 patch TRANSDERMAL QAM insulin aspart U-100 [Novolog FlexPen U-100 Insulin] 100 unit/mL (3 mL) Insulin Pen 1 sliding scale dose SUBCUT USEASDIRECTD Rx Instructions: <150=0u; 151-200=2u; 251-300=4u; 301-350=6u; 351-400=8u; greater than 450 call MD @0800, 1200, 1600, 2000 insulin glargine [Lantus Solostar U-100 Insulin] 100 unit/mL (3 mL) Insulin Pen 34 unit SUBCUT PM insulin glargine [Lantus Solostar U-100 Insulin] 100 unit/mL (3 mL) insulin pen 18 unit subcut QAM polyethylene glycol 3350 [Miralax] 17 gram/dose powder 17 g PO DAILY Qty: 119 0RF hydroxyzine HCl 25 mg tablet 25 mg PO BID PRN (Reason: nausea and vomiting) Qty: 12 0RF Rx Instructions: monitor for drowsiness tramadol 50 mg tablet 25 mg PO Q8 PRN (Reason: .severe pain) sennosides [senna] 8.6 mg Tablet 8.6 mg PO DAILY calcium carbonate [Calcium 600] 600 mg calcium (1,500 mg) Tablet 600 mg PO BID amiodarone 100 mg tablet 100 mg PO DAILY Qty: 30 0RF loperamide 2 mg Capsule 2 mg PO Q6H PRN (Reason: Diarrhea) metformin 850 mg tablet 850 mg PO BIDM levothyroxine 125 mcg tablet 125 mcg PO DAILYBB cranberry extract 500 mg capsule 500 mg PO BIDM Rx Instructions: administer with meals magnesium chloride [Mag 64] 64 mg Tablet,Delayed Release (Dr/Ec) 64 mg PO DAILY Qty: 30 0RF Referrals Referrals: Filippo Ballesteros DO [Primary Care Provider] -
[2024-09-21 23:55] LABS: Alanine Aminotransferase 10.0 U/L (7-52); Albumin Globulin Ratio 1.5 (0.9-2); Alkaline Phosphatase 64.0 U/L (34-104); Anion Gap 8.0 (3-11); Bilirubin,Total 0.5 mg/dl (0.2-1.0); Blood Urea Nitrogen 16.0 mg/dl (6-23); Calcium 9.5 mg/dl (8.6-10.3); Carbon Dioxide 31.0 mmol/L (21-32); Chloride 105.0 mmol/L (98-107); Creatinine Clr Calc Pharmacy 79.6 ml/min; Globulin 2.8 gm/dl (2.5-4.0); Glucose 49.0 mg/dl (70-99(Fasting)); Lipase 25.0 U/L (11-82); Magnesium 1.2 mg/dl (1.7-2.4); Potassium 3.9 mmol/L (3.5-5.1); Sodium 144.0 mmol/L (136-145); Thyroid Stimulating Hormone 5.788 uIu/ml (0.300-4.500); Total Protein 6.9 gm/dl (6.0-8.3)
[2024-09-22 00:01] LABS: Creatine Kinase 55.0 U/L (30-223)
[2024-09-22] MEDS ORDERED: VANCOMYCIN CONSULT ACTIVE PRN (00:18)
--- NOTE | 2024-09-22 00:38 | CT Scan Report ---
EXAM: CT head/brain wo con CLINICAL HISTORY: AMS, Fall, hypoglycemia TECHNIQUE: Multiple axial images are obtained from the skull base to the vertex without contrast. CT scan was performed according to ALARA (as low as reasonable achievable). 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 FINDINGS: There is cerebral atrophy. No evidence of space occupying lesion, hemorrhage, edema, mass effect, midline shift, extra axial collection, or hydrocephalus is noted. Basal cisterns are symmetric and normal in size and configuration. There are scattered periventricular hypodensities as can be seen with chronic microvascular ischemic changes. The hoff-white matter differentiation is preserved. Visualized paranasal sinuses and mastoid air cells are well aerated. Orbital contents are within normal limits. Bony structures are intact. IMPRESSION: 1. No evidence of acute intracranial abnormality is demonstrated. 2. Chronic microvascular ischemic changes.-stable. 3. Cerebral atrophy.-stable. MRI brain for better evaluation if clinically indicated. Electronically signed by Jerry Shi 09-22-2024 12:38 AM
[2024-09-22] MEDS: PIPERACILLIN/TAZOBACTAM 4.5 GM/100 ML BAG IV ONE (00:39)
[2024-09-22] MEDS: SODIUM CHLORIDE 0.9% 1,000 ML IV SCH (00:40)
[2024-09-22] MEDS: VANCOMYCIN HCL 2,000 MG in SODIUM CHLORIDE 0.9% 500 ML IV ONE (01:11)
--- NOTE | 2024-09-22 01:46 | History & Physical Report ---
Date of Service September 22, 2024 Assessment & Plan (1) Unconsciousness: (2) Hypoglycemia: (3) Lactic acidosis: (4) Hypomagnesemia: Plan Patient is a 69-year-old male with past medical history of dementia, type II DM, HTN, paroxysmal A-fib, frequent falls, cardiomyopathy, HLD who presented via EMS from [place] after he was found on the ground unconscious. He EMS noted his glucose to be 48, gave him oral glucose, and repeat was 41. Upon arrival to ED glucose was 49 which improved to 113 at 2 amps of D50. Patient was found to have a lactic acid of 2.7 and hypomagnesemia with a mag of 1.2. #unconscious episode/hypoglycemiaSuspect unconscious episode 2/2 hypoglycemia as patient is on Insulin, Hypoglycemic seizure remains within differential. Hx of diabetic coma. Laboratories revealed hypoglycemia, lactic acidosis, hypomagnesemia. Troponin, CK, TSH WNL. No leukocytosis, renal function stable. Head CT negative for acute changes. - hold insulin - q1h glucose check x3 Pharmacy glycemic consult Every 4 hour neurochecks Hold Xarelto x 24 hours is unclear as to if patient had head strike - seizure precautions Telemetry monitoring #Lactic acidosisinitial lactate 2.7 -> 2.1. No leukocytosis, VSS. CXR pending however similar to previous. no obvious signs of infection at time of admission. 3L NSS bolus ordered by ED Continue fluid resuscitation with LR at 100 mL/hour overnight Repeat lactic acid with a.m. labs UA ordered Hold metformin Given vancomycin plus Zosyn in ED for suspected infection, will defer further antibiotic coverage at this time - VBG with am labs #Hypomagnesemiapatient denies any recent vomiting/diarrhea. Mag 1.2, other electrolytes stable, renal function stable. 3G IV magnesium ordered Trend BMP, magnesium, phosphorus with a.m. labs #Paroxysmal A-fibcontinue amiodarone, holding Xarelto x 24 hours with above. #HLDcontinue atorvastatin #HTNcontinue lisinopril #nicotine dependencenicotine patch daily VTE ppx: SCDs, hold xarelto x 24 hrs Dispo: med/tele Admission and Anticipated Discharge Date Admission Date: 09/22/24 History of Present Illness Chief Complaint: fall Primary Care Provider: Filippo Ballesteros DO Patient is a 69-year-old male with past medical history of dementia, type II DM, HTN, paroxysmal A-fib, frequent falls, cardiomyopathy, HLD who presented via EMS from [place] after he was found on the ground unconscious. He EMS noted his glucose to be 48, gave him oral glucose, and repeat was 41. Upon arrival to ED glucose was 49 which improved to 113 at 2 amps of D50. Patient was found to have a lactic acid of 2.7 and hypomagnesemia with a mag of 1.2. Patient seen at bedside. He does not remember what happened this evening or what caused him to fall, he did get his evening glucose as the intermediate gives it to him. He is alert and oriented x 3. he stated he feels well right now, denies any pain, chest pain, shortness of breath, dysuria, cough, fevers, chills. Neurologic exam unremarkable. He wishes to be full code. Nursing at bedside stated patient arrived without any signs of urinary or bowel incontinence. ED provider stated patient was agitated when he came in, improved with Ativan IV. Allergies Allergy/AdvReac Type Severity Reaction Status Date / Time amlodipine Allergy Severe Hives Verified 07/15/24 10:24 Home Medications Medication Instructions Recorded Confirmed Type Wheeled Walker #1 ea 03/21/21 08/14/24 Rx cholecalciferol (vitamin D3) 50 2,000 unit PO DAILY #90 caps 01/23/22 08/14/24 Rx mcg (2,000 unit) capsule rivaroxaban 20 mg tablet (Xarelto) 20 mg PO HS #30 tabs 01/23/22 08/14/24 Rx acetaminophen 500 mg tablet 1,000 mg (2 x 500 mg) PO TID #90 06/20/22 08/14/24 Rx (Tylenol Extra Strength) tabs blood sugar diagnostic (OneTouch #200 ea 11/02/22 08/14/24 Rx Ultra Test strips) docusate sodium 100 mg capsule 100 mg PO DAILY 11/17/22 08/14/24 History atorvastatin 40 mg tablet 40 mg PO HS 02/16/23 08/14/24 History Wheelchair (Manual) #1 ea 02/21/23 08/14/24 Rx insulin aspart U-100 100 unit/mL 6 unit (0.06 mL) subcut TIDWMEAL 07/09/23 08/14/24 Rx (3 mL) subcutaneous pen (Novolog #30 mL FlexPen U-100 Insulin aspart) cranberry extract 500 mg capsule 500 mg PO BIDM 09/12/23 08/14/24 History levothyroxine 125 mcg tablet 125 mcg PO DAILYBB 09/12/23 08/14/24 History loperamide 2 mg capsule 2 mg PO Q6H PRN Diarrhea 09/12/23 08/14/24 History metformin 850 mg tablet 850 mg PO BIDM 09/12/23 08/14/24 History magnesium chloride 64 mg 64 mg PO DAILY #30 tabs 09/20/23 08/14/24 Rx (magnesium chloride) tablet,delayed release (Mag 64) Saccharomyces boulardii 250 mg 250 mg PO DAILY 11/20/23 08/14/24 History capsule (Florastor) pen needle, diabetic, safety 30 #200 ea 12/14/23 08/14/24 Rx gauge x 1/3" insulin aspart U-100 100 unit/mL 1 sliding scale dose subcut 01/13/24 08/14/24 History (3 mL) subcutaneous pen (Novolog USEASDIRECTD FlexPen U-100 Insulin aspart) insulin glargine 100 unit/mL (3 18 unit subcut QAM 01/13/24 08/14/24 History mL) subcutaneous pen (Lantus Solostar U-100 Insulin) insulin glargine 100 unit/mL (3 34 unit subcut PM 01/13/24 08/14/24 History mL) subcutaneous pen (Lantus Solostar U-100 Insulin) nicotine 14 mg/24 hr daily 1 patch transdermal QAM 01/13/24 08/14/24 History transdermal patch polyethylene glycol 3350 17 17 g PO DAILY #119 grams 01/17/24 08/14/24 Rx gram/dose oral powder (Miralax) hydroxyzine HCl 25 mg tablet 25 mg PO BID PRN nausea and 02/22/24 08/14/24 Rx vomiting #12 tabs lisinopril 30 mg tablet 30 mg PO QAM #180 tabs 07/16/24 08/14/24 Rx calcium carbonate (Calcium 600) 600 mg PO BID 08/14/24 08/14/24 History sennosides 8.6 mg tablet (senna) 8.6 mg PO DAILY 08/14/24 08/14/24 History tramadol 50 mg tablet 25 mg PO Q8 PRN .severe pain 08/14/24 08/14/24 History amiodarone 100 mg tablet 100 mg PO DAILY #30 tabs 08/26/24 Rx Past Med/Surg History Problem List Hypoglycemia (Acute) Lactic acidosis Hypoglycemia Unconsciousness Fecal impaction Vascular dementia Dementia Weakness (Acute) HTN (hypertension) (Acute) AMS (altered mental status) (Acute) Cerebral ventriculomegaly Edema History of prostate cancer Aortic stenosis Hypomagnesemia (Acute) care home resident Hypertension (Acute) Falls frequently Lower urinary tract symptoms Parkinsonism Paroxysmal A-fib (07/2020) Paroxysmal SVT (supraventricular tachycardia) (Acute) Osteoporosis Dyslipidemia Constipation Lumbar back pain Gait apraxia Cardiomyopathy (07/2020) Insomnia Vitamin D deficiency Chews tobacco Medical History Complicated UTI (urinary tract infection) History of alcoholism no alcohol in >1 year Tubular adenoma of colon Pulmonary nodule Leah's thyroiditis Erectile dysfunction Dilated aortic root Cognitive impairment Closed head injury Renal cyst Subcapital fracture of left hip 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 Septic prepatellar bursitis (07/2020) Surgical History S/P ORIF (open reduction internal fixation) fracture Rip hip 06/2022, cannulated screws x3 History of total left hip arthroplasty 12-20-21 Left Total Hip Arthroplasty-Uncemented(Left) - Jeremy Baker, History of shoulder surgery Left History of left knee surgery Family History Mother Cancer Grandmother (Paternal) Stroke Grandfather (Paternal) Stroke Other Myocardial infarction Denies family history of Ovarian cancer Prostate cancer Breast cancer Colorectal cancer Social History Smoking Status: Former smoker Tobacco Type: Smokeless Tobacco (Dip or Chew) Age Started Using Tobacco: 16; Age Quit Using Tobacco: 26; Do You Dip or Chew Tobacco: Yes; Preferred Language: Spanish Communication Ability: Effective Communication Ability Comment: unable to obtain d/t patien condition. 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 Non-toxic appearing. HEENT- EOMI, mucous membranes dry. Hearing grossly intact. Heart-normal S1 and S2. No murmurs, rubs or gallops. Lungs-clear bilaterally, no respiratory distress, no accessory muscle use. Abdomen-normal bowel sounds and soft. No ascites noted. Non-tender. Extremities- no clubbing, cyanosis, or edema. Rheumatologic-normal range of motion. Psychiatric-normal affect. Results & Data Results & Data Vital Signs (Past 12 Hours) Vital Signs Temp Pulse Pulse Resp BP BP Pulse Ox 09/22/24 01:00 56 L 20 168/108 H 100 09/22/24 00:04 64 18 163/126 H 98 09/22/24 00:00 36.9 C 62 18 163/126 H 99 09/21/24 23:19 37.1 C 63 18 203/137 H 97 09/21/24 23:06 68 O2 Del Method 09/22/24 01:00 Room Air 09/22/24 00:04 Room Air 09/22/24 00:00 Room Air 09/21/24 23:19 Room Air 09/21/24 23:06 Laboratory Results reviewed CBC, CMP, lactate, magnesium, TSH, troponin, CK Diagnostic Findings reviewed head CT and CXR Medications Administered EDD50 x 2 A, 3L NSS bolus, Ativan 1 Mg IV, Zosyn plus vancomycin IV ECG Additional Comments: ordered Code Status & VTE Plan Code Status full code VTE Prophylaxis Plan VTE Prophylaxis will be ordered: Yes Supervising Physician Co-Signing Physician Notes Patient seen and examined, chart reviewed, case discussed with Stephanie Cope PA-C and I agree with the assessment and plan as above except as otherwise noted Labs and images reviewed 69-year-old male with past medical history of dementia, hypertension, frequent falls, SVT, paroxysmal A-fib on Xarelto who p/w falls and hypoglycemia. At time bedside assessment he is oriented to name and hospital. He reports he feels generally poor but denies pain. Denies headache.. Was initially agitated on ER evaluation. Is high hypoglycemia risk and has a history of diabetic coma. BSG 50s on arrival, improved with dextrose. Lactate elevated, received 2 L of crystalloid. DDx includes hypoglycemic seizure, although no CK elevation and no incontinence. BSG treated as noted. 1hr repeat pending for stability he was given empiric Zosyn, no infectious symptoms of fever or leukocytosis at time of admission. UA pending. Agree w/ above PG Care Time/CCT Total # of Minutes Spent Total Time Spent with Patient: Total time spent is greater than 50% in coordination of care (as documented) at patient's floor/unit and/or counseling patient: Coding Level of Care Code 24642 INT INP/OBS CARE 3/75MIN Diagnoses Unconsciousness R40.20 Hypoglycemia E16.2 Lactic acidosis E87.20 Hypomagnesemia E83.42
--- NOTE | 2024-09-22 02:05 | Emergency Department Note ---
ED Visit Note I was consulted by the Advanced Practice Provider, Lars Saini PA-C.. I personally made/approved the management plan and take responsibility for the patient management. I performed a substantive portion of the visit. This includes the aspects of: -History/Physical/Personally seeing the patient -MDM -I independently interpreted the following studies: Head CT: A noncontrast CT scan of the head was performed and was negative for tumor, fracture, intracranial hemorrhage, or other acute pathology. Hypoglycemia corrected. Patient's mental status improved. Lactate elevated. Further evaluation and management in the hospital will be necessary. Consultation was made with Dr. Jed Talbert of the [facility] service. Patient was evaluated in the ER for further management. .
--- NOTE | 2024-09-22 02:57 | XRay Report ---
Exam(s): XR CXR 1 VIEW EXAM: XR Chest, 1 View CLINICAL HISTORY: Reason for exam: weakness. TECHNIQUE: Frontal view of the chest. COMPARISON: Prior chest x-ray from August 14, 2024. FINDINGS: Lungs: Mild to moderate peribronchial thickening of the central and lower lobe bronchi with subtle patchy opacity in the right lung. No consolidation. Pleural space: Unremarkable. No pneumothorax. Heart: Mild cardiomegaly. Mediastinum: Unremarkable. Normal mediastinal contour. Bones/joints: Unremarkable. No acute fracture. IMPRESSION: Bronchitis with possible developing infiltrate in the right lung. Cardiomegaly without evidence of CHF. Electronically signed by: Josie Araya MD 09/22/24 02:56 AM
[2024-09-22] MEDS ORDERED: GLUCAGON FOR INJ 1 MG VIAL SQ PRN (04:08)
[2024-09-22] MEDS ORDERED: PHARMACY GLYCEMIC MGMT CONSULT PRN (04:08)
[2024-09-22] MEDS ORDERED: ONDANSETRON INJ 2 MG/ML 2 ML VIAL IV PRN (04:08)
[2024-09-22] MEDS ORDERED: GLUCOSE 40% GEL 15 GM TUBE PO PRN (04:08)
[2024-09-22] MEDS ORDERED: MELATONIN 3 MG TAB PO PRN (04:08)
[2024-09-22] MEDS ORDERED: ACETAMINOPHEN 325 MG TAB PO PRN (04:08)
[2024-09-22] MEDS ORDERED: GLUCOSE 10 TAB/TUBE PO PRN (04:08)
[2024-09-22] MEDS ORDERED: CARBOHYDRATES FOR HYPOGLYCEMIA PO PRN (04:08)
[2024-09-22] MEDS ORDERED: DEXTROSE 50% 50 ML SYRINGE IV PRN (04:08)
[2024-09-22] MEDS: LACTATED RINGER'S 1,000 ML IV SCH (04:21)
[2024-09-22] MEDS: MAGNESIUM SULFATE / D5W 1 GM/100 ML BAG IV SCH ×2 (04:21→13:48)
[2024-09-22] MEDS: LEVOTHYROXINE SODIUM 125 MCG TABLET PO SCH (05:35)
[2024-09-22 05:52] LABS: Appearance Urine Clear (Clear); Glucose Urine UA Negative (Negative)
[2024-09-22 06:45] LABS: Base Excess VBG 3.4 mEq/L; HCO3 VBG 29 mmol/L; Oxygen Saturation VBG < 60.0 %; PCO2 VBG 44 mmHg (38-50); PO2 VBG 31 mmHg; pH VBG 7.42 (7.36-7.41)
[2024-09-22 06:52] LABS: Hematocrit (blood only) 37.2 % (42.0-52.0); Hemoglobin 12.7 g/dl (14.0-18.0); Immature Granulocytes # (auto) 0.04 K/uL (0.01-0.20); Immature Granulocytes % (auto) 0.7 %; Mean Corpuscular Hemoglobin 30.6 pg (25.0-34.0); Mean Corpuscular Volume 89.6 fL (80.0-100.0); Platelet Count 149 K/uL (130-400); RDW Standard Deviation 42.9 fL (36.4-46.3); Red Blood Count 4.15 M/uL (4.70-6.10); White Blood Count 5.73 K/ul (4.8-10.8)
--- NOTE | 2024-09-22 07:19 | Hospitalist Progress Note ---
Date of Service September 22, 2024 Assessment & Plan (1) Unconsciousness: (2) Hypoglycemia: (3) Lactic acidosis: (4) Hypomagnesemia: Plan Patient is a 69-year-old male with past medical history of dementia, type II DM, HTN, paroxysmal A-fib, frequent falls, cardiomyopathy, HLD who presented via EMS from [facility] after he was found on the ground unconscious. Upon arrival to ED glucose was 49 which improved to 113 at 2 amps of D50. Patient was found to have a lactic acid of 2.7 and hypomagnesemia with a mag of 1.2. #unconscious episode/hypoglycemiaLikely due to hypoglycemia as patient is on Insulin. Hx of diabetic coma. Laboratories revealed hypoglycemia, lactic acidosis, hypomagnesemia. Troponin, CK, TSH were WNL, no leukocytosis and renal function is stable. Head CT negative for acute changes. Pt is eating well. - hold insulin - q1h glucose check x3 Pharmacy glycemic consult Every 4 hour neurochecks Hold Xarelto x 24 hours is unclear as to if patient had head strike - Continue seizure precautions Telemetry monitoring #Lactic acidosisinitial lactate 2.7 -> 2.1. No leukocytosis, VSS. CXR pending however similar to previous. no obvious signs of infection at time of admission, S/p 3L NSS bolus ordered by ED and continue fluid resuscitation with LR at 100 mL/hour overnight UA was normal Continue holding metformin Given vancomycin plus Zosyn in ED for suspected infection, will defer further antibiotic coverage at this time - VBG is normal #Hypomagnesemiapatient denies any recent vomiting/diarrhea. Mag 1.2--> 1.3 after 3G IV Mg on 09/22 3G IV magnesium ordered Trend BMP #Hypophosphatemia- Phos level is 1.5 - Pt encouraged to eat - Consider assessment of Vit D level #AMS- Pt with changes in cognition from morning to afternoon. Differential includes acute CVA, progression of electrolyte imbalance, and hospital acquired delirium - Repeat BMP- pending - Ordered Non-con CT head- pending #Paroxysmal A-fibcontinue amiodarone, holding Xarelto x 24 hours with above. #HLDcontinue atorvastatin #HTNcontinue lisinopril #nicotine dependencenicotine patch daily VTE ppx: SCDs, restart xarelto 09/22 Dispo: med/tele Admission and Anticipated Discharge Date Admission Date: September 22, 2024 Supervising Physician Co-Signing Physician Notes Attending attestation Pt seen and examined in concert with Dr. Corbin. In agreement with the documented findings as noted in the resident documentation with any exceptions or additions as noted here. Laying in bed responsive to questions but confused - AAOx1 which is diminished from residents previous assessment though denies any other acute changes or symptoms at present. VS as noted. On examination, S1/S2 nl RRR no MCG. CTAB. Abd NT/ND BS+ve. CNII- XII grossly intact but difficult to test due to patient cooperation. Delirium in the setting of baseline dementia - agree w/ evaluation including CT head, repeat lab work for any sudden underlying changes. May also be hospital delirium in the setting of dementia. d/w family re: MS baseline and propensity for delirium, as well as ongoing care including support for appropriate feeding Episodic LOC w/ hypoglycemia and electrolyte abnormalities - continue careful surveillance of blood glucose and repletion of electrolytes as noted, glycemic consult appreciated Else see resident documentation as noted. Subjective Pt reports he has not complaints today. He states he lives in a care facility that provides his meds and meals. He states he is able to transport himself to all meals in his wheelchair to the diningroom and that he eats regular meals. He maintains denial of recent GI illness, chronic diarrhea or vomiting. Pt examined while lying in bed with 90% empty breakfast tray. Pt denies CP, SOB, headache, dizziness, N/V/D/C, new onset myalgias/arthralgias At repeat visit in the afternoon, pt was confused and unable to answer questions and only oriented at self and month. Review of Systems Review of Systems: As per HPI Physical Exam Physical Exam: GEN: The patient is awake, alert and oriented 3 int he morning. Pt oriented to self in the afternoon. Well developed and well nourished, normocephalic and atraumatic, in no acute distress. Non-toxic appearing. HEENT- EOMI, mucous membranes moist. Hearing grossly intact. Heart-normal S1 and S2. No murmurs, rubs or gallops. Lungs-clear bilaterally, no respiratory distress, no accessory muscle use. Abdomen-normal bowel sounds and soft. No ascites noted. Non-tender. Extremities- no clubbing, cyanosis, or edema. Rheumatologic-normal range of motion. Psychiatric-flat affect. Results & Data Results & Data Vital Signs (Past 12 Hours) Vital Signs Temp Pulse Pulse Resp BP BP Pulse Ox 09/22/24 04:49 09/22/24 04:49 36.4 C L 65 18 166/82 H 98 09/22/24 04:08 36.4 C L 65 18 166/82 H 98 09/22/24 04:08 09/22/24 03:47 60 09/22/24 03:00 61 20 175/113 H 96 09/22/24 02:00 65 18 197/132 H 97 09/22/24 01:00 56 L 20 168/108 H 100 09/22/24 00:04 64 18 163/126 H 98 09/22/24 00:00 36.9 C 62 18 163/126 H 99 09/21/24 23:19 37.1 C 63 18 203/137 H 97 09/21/24 23:06 68 Pulse Ox O2 Del Method O2 Del Method 09/22/24 04:49 Room Air 09/22/24 04:49 Room Air 09/22/24 04:08 Room Air 09/22/24 04:08 98 Room Air 09/22/24 03:47 09/22/24 03:00 Room Air 09/22/24 02:00 Room Air 09/22/24 01:00 Room Air 09/22/24 00:04 Room Air 09/22/24 00:00 Room Air 09/21/24 23:19 Room Air 09/21/24 23:06 Resident Activity Tracking Resident Involvement: Resident Care Provided Care Provided: Adult Hospital Medicine
[2024-09-22 07:29] LABS: Alanine Aminotransferase 8.0 U/L (7-52); Albumin Globulin Ratio 1.5 (0.9-2); Alkaline Phosphatase 54.0 U/L (34-104); Anion Gap 5.0 (3-11); Bilirubin,Total 0.7 mg/dl (0.2-1.0); Blood Urea Nitrogen 11.0 mg/dl (6-23); Calcium 7.9 mg/dl (8.6-10.3); Carbon Dioxide 29.0 mmol/L (21-32); Chloride 109.0 mmol/L (98-107); Creatinine Clr Calc Pharmacy 98.0 ml/min; Globulin 2.2 gm/dl (2.5-4.0); Glucose 100.0 mg/dl (70-99(Fasting)); Magnesium 1.3 mg/dl (1.7-2.4); Potassium 3.4 mmol/L (3.5-5.1); Sodium 143.0 mmol/L (136-145); Total Protein 5.5 gm/dl (6.0-8.3)
--- NOTE | 2024-09-22 08:20 | Pharmacy Report ---
Pharmacy Glycemic Short Note 2 - Date of Service September 22, 2024 - Glycemic Short BSG Results (Last 24 hours): 09/21/24 09/21/24 09/21/24 23:00 23:03 23:16 Glucose 49 L* POC Glucose 52 L* 121 H 09/22/24 09/22/24 09/22/24 00:18 01:19 02:49 Glucose POC Glucose 100 H 113 H 108 H 09/22/24 09/22/24 09/22/24 03:48 06:31 08:00 Glucose 100 H POC Glucose 92 125 H OUTPATIENT ANTIDIABETIC REGIMEN: * Lantus 18 units SQ AM, 24 units SQ PM * NovoLog 6 units TID with meals + SSI * Metformin 850mg PO BID * A1c 7.1% 08/21/24 ASSESSMENT: * 69-year-old M, PMH of dementia, type II DM w/ hx of diabetic coma, HTN, A-fib, frequent falls, cardiomyopathy, HLD, presented via EMS from [place] after found on the ground unconscious. EMS noted his glucose to be 48, gave him oral glucose, repeat 41. Upon arrival to ED glucose was 49 which improved to 113 at 2 amps of D50. Patient was found to have a lactic acid of 2.7 and hypomagnesemia with a mag of 1.2. * Euglycemic this morning, BSGs 125, 100mg/dl. Will hold all basal insulin at this time, and begin with NovoLog CF/CR only to ensure blood sugars do not go low again. Also use higher goal range. Will add basal at lunch/dinner/HS if BSGs trend high. * Patient ordered T2DM diet. PLAN FOR INPATIENT GLYCEMIC CONTROL: * Hold outpatient oral diabetes medications * Basal insulin * hold at this time, add back gradually today if BSGs remain stable * Bolus insulin * NovoLog per scale ACHS or Q6hrs while NPO * Goal Range: Low 120 mg/dL - High 150 mg/dL * Correction Factor: 35 mg/dL/unit * Nutritional / Prandial insulin per carb ratio of 1 unit per 12 grams CHO consumed
[2024-09-22] MEDS: NICOTINE 14 MG/24 HR PATCH TD SCH (08:41)
[2024-09-22] MEDS: AMIODARONE 200 MG TAB PO SCH (08:42)
[2024-09-22] MEDS: INSULIN ASPART PER UNIT CHARGE SC SCH (08:49)
[2024-09-22] MEDS: POLYETHYLENE (MIRALAX) 17 GM PACK PO SCH (08:49)
[2024-09-22] MEDS: DOCUSATE SODIUM 100 MG CAP PO SCH (08:49)
[2024-09-22] MEDS: REMOVE NICODERM PATCH SCH (08:50)
[2024-09-22 16:14] LABS: Anion Gap 6.0 (3-11); Blood Urea Nitrogen 9.0 mg/dl (6-23); Calcium 8.2 mg/dl (8.6-10.3); Carbon Dioxide 27.0 mmol/L (21-32); Chloride 107.0 mmol/L (98-107); Creatinine Clr Calc Pharmacy 105.2 ml/min; Glucose 150.0 mg/dl (70-99(Fasting)); Potassium 3.4 mmol/L (3.5-5.1); Sodium 140.0 mmol/L (136-145)
--- NOTE | 2024-09-22 16:40 | CT Scan Report ---
CT head without contrast History: AMS Comparison: None Technique: Using multidetector thin collimation helical acquisition technique, axial, coronal and sagittal CT images from the skull base to the vertex were obtained without intravenous contrast. Dose reduction techniques were achieved by using automatic exposure control and/or adjustment of mA and/or kV according to patient size and/or use of iterative reconstruction technique. Findings: No intracranial hemorrhage, mass-effect, or midline shift. The ventricles are proportionate to the cerebral sulci. The hoff to white matter differentiation of the cerebral hemispheres is preserved. The basal cisterns are patent. There is marked cerebral atrophy. Moderate, patchy low-attenuation changes in the white matter, most suggestive of sequelae of chronic small vessel ischemic disease. The visualized paranasal sinuses are clear. Mastoid air cells are clear. Impression: No acute intracranial pathology. Electronically signed by Jeremy Yanez 09-22-2024 4:40 PM
--- NOTE | 2024-09-22 18:27 | Electrocardiogram Report ---
Test Reason : Blood Pressure : */* mmHG Vent. Rate : 70 BPM Atrial Rate : 70 BPM P-R Int : 208 ms QRS Dur : 132 ms QT Int : 452 ms P-R-T Axes : 43 -39 24 degrees QTcB Int : 488 ms Normal sinus rhythm with sinus arrhythmia Left axis deviation Right bundle branch block Minimal voltage criteria for LVH, may be normal variant Abnormal ECG When compared with ECG of 27-Aug-2024 18:37, Vent. rate has decreased by 66 bpm Confirmed by Jeremy Nguyen ([id number]) on 09/22/2024 6:26:49 PM [facility]erred By[facility] Confirmed By: Jeremy Nguyen
--- NOTE | 2024-09-22 18:29 | Electrocardiogram Report ---
Test Reason : Blood Pressure : */* mmHG Vent. Rate : 64 BPM Atrial Rate : 64 BPM P-R Int : 212 ms QRS Dur : 132 ms QT Int : 522 ms P-R-T Axes : 61 -35 0 degrees QTcB Int : 538 ms Poor data quality, interpretation may be adversely affected Sinus rhythm with 1st degree A-V block with Premature atrial complexes with Aberrant conduction Left axis deviation Right bundle branch block T wave abnormality, consider lateral ischemia Abnormal ECG When compared with ECG of 21-Sep-2024 23:03, (unconfirmed) Aberrant conduction is now Present Nonspecific T wave abnormality, worse in Inferior leads Confirmed by Jeremy Nguyen ([id number] on 09/22/2024 6:28:40 PM Referred By: Julio Nunez [place] Confirmed By: Jeremy Nguyen
[2024-09-22] MEDS: LANTUS PER UNIT CHARGE SC SCH (21:45)
[2024-09-22] MEDS: ATORVASTATIN 40 MG TAB PO SCH (21:47)
[2024-09-23] MEDS ORDERED: PHA DELIRIUM CONSULT PRN (01:48)
--- NOTE | 2024-09-23 06:44 | Hospitalist Progress Note ---
Date of Service September 23, 2024 Assessment & Plan (1) Unconsciousness: (2) Hypoglycemia: (3) Lactic acidosis: (4) Hypomagnesemia: Plan Patient is a 69-year-old male with past medical history of dementia, type II DM, HTN, paroxysmal A-fib, frequent falls, cardiomyopathy, HLD who presented via EMS from [facility] after he was found on the ground unconscious. Upon arrival to ED glucose was 49 which improved to 113 at 2 amps of D50. Patient was found to have a lactic acid of 2.7 and hypomagnesemia with a mag of 1.2. #unconscious episode/hypoglycemiaLikely due to hypoglycemia as patient is on Insulin. Hx of diabetic coma. Laboratories revealed hypoglycemia, lactic acidosis, hypomagnesemia. Troponin, CK, TSH were WNL, no leukocytosis and renal function is stable. Head CT negative for acute changes. Pt is eating well. - hold insulin - q1h glucose check x3 Pharmacy glycemic consult Every 4 hour neurochecks Hold Xarelto x 24 hours is unclear as to if patient had head strike - Continue seizure precautions Telemetry monitoring #Lactic acidosisinitial lactate 2.7 -> 2.1. No leukocytosis, VSS. CXR pending however similar to previous. no obvious signs of infection at time of admission, S/p 3L NSS bolus ordered by ED and continue fluid resuscitation with LR at 100 mL/hour overnight UA was normal Continue holding metformin Given vancomycin plus Zosyn in ED for suspected infection, will defer further antibiotic coverage at this time - VBG is normal #Hypomagnesemiapatient denies any recent vomiting/diarrhea. Mag 1.2--> 1.3 after 3G IV Mg on 09/22 3G IV magnesium ordered Trend BMP #Hypophosphatemia- Phos level is 1.5 - Pt encouraged to eat - Consider assessment of Vit D level #AMS- Pt with changes in cognition from morning to afternoon. Differential includes acute CVA, progression of electrolyte imbalance, and hospital acquired delirium - Repeat BMP- pending - Ordered Non-con CT head- pending #Paroxysmal A-fibcontinue amiodarone, holding Xarelto x 24 hours with above. #HLDcontinue atorvastatin #HTNcontinue lisinopril #nicotine dependencenicotine patch daily VTE ppx: SCDs, restart xarelto 09/22 Dispo: med/tele Admission and Anticipated Discharge Date Admission Date: September 22, 2024 Subjective Pt reports Pt denies CP, SOB, headache, dizziness, N/V/D/C, new onset myalgias/arthralgias Review of Systems Review of Systems: As per HPI Physical Exam Physical Exam: GEN: The patient is awake, alert and oriented 3 int he morning. Pt oriented to self in the afternoon. Well developed and well nourished, normocephalic and atraumatic, in no acute distress. Non-toxic appearing. HEENT- EOMI, mucous membranes moist. Hearing grossly intact. Heart-normal S1 and S2. No murmurs, rubs or gallops. Lungs-clear bilaterally, no respiratory distress, no accessory muscle use. Abdomen-normal bowel sounds and soft. No ascites noted. Non-tender. Extremities- no clubbing, cyanosis, or edema. Rheumatologic-normal range of motion. Psychiatric-flat affect. Results & Data Results & Data Vital Signs (Past 12 Hours) Vital Signs Temp Pulse Pulse Resp BP Pulse Ox Pulse Ox 09/23/24 04:08 97 09/23/24 04:06 67 09/23/24 03:26 138 H 18 126/83 97 09/22/24 22:51 36.7 C 62 16 161/103 H 95 09/22/24 21:37 64 09/22/24 20:00 09/22/24 19:38 36.9 C 75 18 165/83 H 97 O2 Del Method O2 Del Method 09/23/24 04:08 Room Air 09/23/24 04:06 09/23/24 03:26 Room Air 09/22/24 22:51 Room Air 09/22/24 21:37 09/22/24 20:00 Room Air 09/22/24 19:38 Room Air
--- NOTE | 2024-09-23 07:51 | Pharmacy Report ---
Pharmacy Glycemic Short Note 2 - Date of Service September 23, 2024 - Glycemic Short BSG Results (Last 24 hours): 09/22/24 09/22/24 09/22/24 08:00 12:07 15:36 Glucose 150 H POC Glucose 125 H 154 H 09/22/24 09/22/24 17:14 20:32 Glucose POC Glucose 155 H 136 H 09/23/24 08:14 POC Glucose 201 H OUTPATIENT ANTIDIABETIC REGIMEN: * Lantus 18 units SQ AM, 24 units SQ PM * NovoLog 6 units TID with meals + SSI * Metformin 850mg PO BID * A1c 7.1% 08/21/24 ASSESSMENT: 09/23 * Patient received 14 units of insulin yesterday, all NovoLog carb coverage. No basal. Blood sugars at goal yesterday. * Fasting BG of 201mg/dl this morning, will begin basal at a low dose d/t hypoglycemia hx, and continue HS order for BG > 140mg/dl. 09/22 * 69-year-old M, PMH of dementia, type II DM w/ hx of diabetic coma, HTN, A-fib, frequent falls, cardiomyopathy, HLD, presented via EMS from [facility] after found on the ground unconscious. EMS noted his glucose to be 48, gave him oral glucose, repeat 41. Upon arrival to ED glucose was 49 which improved to 113 at 2 amps of D50. Patient was found to have a lactic acid of 2.7 and hypomagnesemia with a mag of 1.2. * Euglycemic this morning, BSGs 125, 100mg/dl. Will hold all basal insulin at this time, and begin with NovoLog CF/CR only to ensure blood sugars do not go low again. Also use higher goal range. Will add basal at lunch/dinner/HS if BSGs trend high. * Patient ordered T2DM diet. PLAN FOR INPATIENT GLYCEMIC CONTROL: * Hold outpatient oral diabetes medications * Basal insulin * 10 units SC daily * 0-20 units HS (0 units BSG < 140, 10 units BSG 140-180, 20 units BSG > 180) * Bolus insulin * NovoLog per scale ACHS or Q6hrs while NPO * Goal Range: Low 120 mg/dL - High 150 mg/dL * Correction Factor: 35 mg/dL/unit * Nutritional / Prandial insulin per carb ratio of 1 unit per 12 grams CHO consumed
[2024-09-23 08:24] LABS: Hematocrit (blood only) 39.6 % (42.0-52.0); Hemoglobin 13.8 g/dl (14.0-18.0); Immature Granulocytes # (auto) 0.02 K/uL (0.01-0.20); Immature Granulocytes % (auto) 0.4 %; Mean Corpuscular Hemoglobin 30.3 pg (25.0-34.0); Mean Corpuscular Volume 87.0 fL (80.0-100.0); Platelet Count 165 K/uL (130-400); RDW Standard Deviation 41.4 fL (36.4-46.3); Red Blood Count 4.55 M/uL (4.70-6.10); White Blood Count 5.30 K/ul (4.8-10.8)
[2024-09-23 09:03] LABS: Alanine Aminotransferase 9.0 U/L (7-52); Albumin Globulin Ratio 1.6 (0.9-2); Alkaline Phosphatase 79.0 U/L (34-104); Anion Gap 8.0 (3-11); Bilirubin,Total 0.9 mg/dl (0.2-1.0); Blood Urea Nitrogen 8.0 mg/dl (6-23); Calcium 7.9 mg/dl (8.6-10.3); Carbon Dioxide 27.0 mmol/L (21-32); Chloride 104.0 mmol/L (98-107); Creatinine Clr Calc Pharmacy 107.9 ml/min; Globulin 2.5 gm/dl (2.5-4.0); Glucose 196.0 mg/dl (70-99(Fasting)); Potassium 3.5 mmol/L (3.5-5.1); Sodium 139.0 mmol/L (136-145); Total Protein 6.4 gm/dl (6.0-8.3)
[2024-09-23] MEDS: LANTUS PER UNIT CHARGE SC SCH (09:07)
--- NOTE | 2024-09-23 10:53 | Discharge Summary ---
Date of Service September 23, 2024 Admission HPI Per Admitting Provider Patient is a 69-year-old male with past medical history of dementia, type II DM, HTN, paroxysmal A-fib, frequent falls, cardiomyopathy, HLD who presented via EMS from [place] after he was found on the ground unconscious. He EMS noted his glucose to be 48, gave him oral glucose, and repeat was 41. Upon arrival to ED glucose was 49 which improved to 113 at 2 amps of D50. Patient was found to have a lactic acid of 2.7 and hypomagnesemia with a mag of 1.2. Patient seen at bedside. He does not remember what happened this evening or what caused him to fall, he did get his evening glucose as the [facility] gives it to him. He is alert and oriented x 3. he stated he feels well right now, denies any pain, chest pain, shortness of breath, dysuria, cough, fevers, chills. Neurologic exam unremarkable. He wishes to be full code. Nursing at bedside stated patient arrived without any signs of urinary or bowel incontinence. ED provider stated patient was agitated when he came in, improved with Ativan IV. Principal Diagnosis Hypoglycemia, electrolyte imbalance Discharge Exam GEN: The patient is awake, alert and oriented 2 this morning. Well developed and well nourished, normocephalic and atraumatic, in no acute distress. Non- toxic appearing. HEENT- EOMI, mucous membranes moist. Hearing grossly intact. Heart-normal S1 and S2. No murmurs, rubs or gallops. Lungs-clear bilaterally, no respiratory distress, no accessory muscle use. Abdomen-normal bowel sounds and soft. No ascites noted. Non-tender. Extremities- no clubbing, cyanosis, or edema. Rheumatologic-normal range of motion. Psychiatric-flat affect. Discharge Data Allergies Allergy/AdvReac Type Severity Reaction Status Date / Time amlodipine Allergy Severe Hives Verified 07/15/24 10:24 Consultations 09/22/24 01:25 ED Decision to Admit Stat Ordered Studies 09/21/24 23:31 CT head/brain wo con Stat 09/22/24 15:21 CT head/brain wo con Urgent Hospital Course (1) Unconsciousness: (2) Hypoglycemia: (3) Lactic acidosis: (4) Hypomagnesemia: Plan Patient is a 69-year-old male with past medical history of dementia, type II DM, HTN, paroxysmal A-fib, frequent falls, cardiomyopathy, HLD who presented via EMS from [facility] after he was found on the ground unconscious. Upon arrival to ED glucose was 49 which improved to 113 at 2 amps of D50. Patient was found to have a lactic acid of 2.7 and hypomagnesemia with a mag of 1.2. #unconscious episode/hypoglycemiaLikely due to hypoglycemia as patient is on Insulin. Hx of diabetic coma. Laboratories revealed hypoglycemia, lactic acidosis, hypomagnesemia. Troponin, CK, TSH were WNL, no leukocytosis and renal function is stable. Head CT negative for acute changes. Pt is eating well. - hold insulin - q1h glucose check x3 Pharmacy glycemic consult Recommeding holding Novolog if pt consumes <50% of meal Novolog sliding scale as follows: </=200: 0 units 201-250: 1 unit 251-300: 3 units 301- 350: 5 units 351-400: 7 units 401- 450: 9 units >450: Call physician Every 4 hour neurochecks Xarelto 20mg to be resumed this evening - DC seizure precautions Telemetry monitoring #Lactic acidosis lactate tended down from 2.7 -> 2.1. No leukocytosis, VSS. CXR pending however similar to previous. no obvious signs of infection at time of admission, S/p 3L NSS bolus ordered by ED and continue fluid resuscitation with LR at 100 mL/hour overnight UA was normal on 09/22 Continue holding metformin Given vancomycin plus Zosyn in ED for suspected infection, will defer further antibiotic coverage at this time - VBG is normal #Hypomagnesemiapatient denies any recent vomiting/diarrhea. Mag 1.2--> 1.3 after 3G IV Mg on 09/22. Today Mg is 1.7 Trend BMP #Hypophosphatemia- Phos level is 2.4 - Pt encouraged to eat - Consider assessment of Vit D level #AMS- Pt with changes in cognition from morning to afternoon. Differential includes acute CVA, progression of electrolyte imbalance, and hospital acquired delirium - Repeat BMP- No significant change in electrolytes - Ordered Non-con CT head- No signs of new onset CVA #Paroxysmal A-fibcontinue amiodarone, restarting Xarelto 20 mg after dinner. #HLDcontinue atorvastatin #HTNcontinue lisinopril #nicotine dependencenicotine patch daily VTE ppx: SCDs, restart xarelto 09/23 Dispo: med/tele Total Time Total Time Spent Total Time Spent (In Minutes): As per attending physician's attestation Discharge Plan Discharge Items Patient Disposition: Personal Alf Reason For Visit: HYPOGLYCEMIA,UNCONSCIOUS EPISODE Discharge Diagnosis: Hypoglycemia, electrolyte abnormalities Condition on Discharge: Fair Activity: Resume your previous activity Non-emergency contact: Primary Care Provider Call non-emergency contact if: your symptoms worsen Follow-up/Referrals: Lilia Ortiz DO [Primary Care Provider] - Diet: Carb Consistent or DM2 Addtl Attending Provider Instructions: You were admitted due to being found unconscious and having very low blood glucose. During your hospital stay we also noted low levels of magnesium and phosphorous which are primarily introduced to your body through food. We held you Xarelto, but would like you to resume your usual dosage tonight after dinner. The training specialist made recommendations to hold your your novolog insulin if you eat less than 50% of your meal and proposed a new sliding scale which is outlined in your discharge summary. Please follow up with your primary care physician in the next 7 days. Pending Studies at Discharge: No Stand-Alone Forms: My Inflection, Smoking Cessation Skilled Items Patient informed of condition?: Yes DNR: No Discharge Level of Care: Skilled Communicable Disease: No Discharge Prognosis: Stable Lines: None Urinary Catheter: No Medications and DC Order Prescriptions: Continued (DME) Wheeled Walker Misc See Rx Instructions .Route Qty: 1 0RF Rx Instructions: As directed. with seat if possible (DME) OneTouch Ultra Test Strip See Rx Instructions .Route Qty: 200 11RF Rx Instructions: Test blood sugars 4 time a day (DME) Wheelchair (Manual) Device See Rx Instructions .Route Qty: 1 0RF Rx Instructions: Standard wheelchair with leg rests. [id number] exam on 02/16/23. Estimated length of need: Lifetime. insulin aspart U-100 [Novolog FlexPen U-100 Insulin] 100 unit/mL (3 mL) insulin pen 6 unit subcut TIDWMEAL Qty: 30 3RF (DME) pen needle, diabetic, safety 30 gauge x 1/3" needle See Rx Instructions .Route Qty: 200 11RF Rx Instructions: use for insuling injections up to eight times daily lisinopril 30 mg tablet 30 mg PO QAM Qty: 180 3RF Saccharomyces boulardii [Florastor] 250 mg capsule 250 mg PO DAILY docusate sodium 100 mg capsule 100 mg PO DAILY cholecalciferol (vitamin D3) 50 mcg (2,000 unit) capsule 2,000 unit PO DAILY Qty: 90 3RF Xarelto 20 mg tablet 20 mg PO HS Qty: 30 11RF acetaminophen [Tylenol Extra Strength] 500 mg Tablet 1,000 mg PO TID Qty: 90 0RF atorvastatin 40 mg tablet 40 mg PO HS nicotine 14 mg/24 hr Patch 24 Hour 1 patch TRANSDERMAL QAM insulin aspart U-100 [Novolog FlexPen U-100 Insulin] 100 unit/mL (3 mL) Insulin Pen 1 sliding scale dose SUBCUT USEASDIRECTD Rx Instructions: <150=0u; 151-200=2u; 201-250= 4 units; 251-300=6u; 301-350=8u; 351-400=10u; greater than 450 call MD @0800, 1200, 1600, 2000 insulin glargine [Lantus Solostar U-100 Insulin] 100 unit/mL (3 mL) Insulin Pen 34 unit SUBCUT PM insulin glargine [Lantus Solostar U-100 Insulin] 100 unit/mL (3 mL) insulin pen 18 unit subcut QAM polyethylene glycol 3350 [Miralax] 17 gram/dose powder 17 g PO DAILY Qty: 119 0RF hydroxyzine HCl 25 mg tablet 25 mg PO BID PRN (Reason: nausea and vomiting) Qty: 12 0RF Rx Instructions: monitor for drowsiness tramadol 50 mg tablet 25 mg PO Q8 PRN (Reason: .severe pain) sennosides [senna] 8.6 mg Tablet 8.6 mg PO DAILY calcium carbonate [Calcium 600] 600 mg calcium (1,500 mg) Tablet 600 mg PO BID amiodarone 100 mg tablet 100 mg PO DAILY Qty: 30 0RF loperamide 2 mg Capsule 2 mg PO Q6H PRN (Reason: Diarrhea) metformin 850 mg tablet 850 mg PO BIDM levothyroxine 125 mcg tablet 125 mcg PO DAILYBB cranberry extract 500 mg capsule 500 mg PO BIDM Rx Instructions: administer with meals magnesium chloride [Mag 64] 64 mg Tablet,Delayed Release (Dr/Ec) 64 mg PO DAILY Qty: 30 0RF Discharge Orders: Discharge Order (Routine); Ordered 09/23/24 Ordered By: Ambika Corbin Admission Data Admit Date/Time: 09/22/24 02:05 Attending Provider: Jeremy Mendoza Admit Provider: Jed Talbert Primary Care Provider: Lilia Ortiz Other Providers: Jed Talbert Supervising Physician Co-Signing Physician Notes Attending attestation Pt seen and examined in concert with Dr. Corbin. In agreement with the documented findings as noted in the resident documentation with any exceptions or additions as noted here. Laying in bed responsive to questions, AAOx1 with waxing and waning attention without acute complaint at time of examination. VS as noted. On examination, S1/S2 nl RRR no MCG. CTAB. Abd NT/ND BS+ve. CNII- XII grossly intact Delirium in the setting of baseline dementia - repeat CT head without changes, no other underlying changes and waxing and waning symptoms consistent with hospital delirium Episodic LOC w/ hypoglycemia and electrolyte abnormalities in the setting of IDDMII - reduced insulin regimen on discharge to avoid hypoglycemia, strongly recommend outpatient support to ensure adequate nutrition. Else see resident documentation as noted. Total attending physician time spent with this patient's care on the day of discharge: 35 minutes. Resident Activity Tracking Resident Involvement: Resident Care Provided Care Provided: Adult Hospital Medicine
[2024-09-23 11:32] VITALS: BP 143/83; PULSE 78; RESP 20; TEMP 97.3; O2SAT 93
[2024-09-23] MEDS ORDERED: RIVAROXABAN 20 MG TAB PO SCH (15:30)
--- NOTE | 2024-09-23 18:15 | Electrocardiogram Report ---
Test Reason : Blood Pressure : */* mmHG Vent. Rate : 64 BPM Atrial Rate : 64 BPM P-R Int : 200 ms QRS Dur : 136 ms QT Int : 518 ms P-R-T Axes : 39 -35 19 degrees QTcB Int : 534 ms Sinus rhythm with Premature atrial complexes Left axis deviation Right bundle branch block Abnormal ECG When compared with ECG of 22-Sep-2024 04:37, No significant change was found Confirmed by Jeremy Nguyen ([id number]) on 09/23/2024 6:14:42 PM Referred By: Julio Nunez Brenham Confirmed By: Jeremy Nguyen
== END 2024-09-23 14:43 | disposition home or self-care (01) | DRG 638 ==
LOC: ED 22:53 → SUATTDRO 09-22 02:05 → 2N 09-22 02:05
DX: E83.39 Other disorders of phosphorus metabolism; Z88.8 Allergy status to other drugs, medicaments and biological substances; F03.90 Unspecified dementia, unspecified severity, without behavioral disturbance, psychotic disturbance, mood disturbance, and anxiety; F17.220 Nicotine dependence, chewing tobacco, uncomplicated; Z79.01 Long term (current) use of anticoagulants; I10 Essential (primary) hypertension; R29.6 Repeated falls; E87.20 Acidosis, unspecified; I48.0 Paroxysmal atrial fibrillation; Z79.899 Other long term (current) drug therapy; I42.9 Cardiomyopathy, unspecified; E11.641 Type 2 diabetes mellitus with hypoglycemia with coma; Z79.890 Hormone replacement therapy; F05 Delirium due to known physiological condition; E06.3 Autoimmune thyroiditis; E83.42 Hypomagnesemia; Z79.84 Long term (current) use of oral hypoglycemic drugs; Z79.4 Long term (current) use of insulin

== ENCOUNTER 2025-03-15 13:41 | Inpatient (IN) ==
[2025-03-15 15:04] LABS: Hematocrit (blood only) 41.3 % (42.0-52.0); Hemoglobin 13.8 g/dL (14.0-18.0); Immature Granulocytes # (auto) 0.02 K/uL (0.01-0.20); Immature Granulocytes % (auto) 0.3 %; Mean Corpuscular Hemoglobin 30.0 pg (25.0-34.0); Mean Corpuscular Volume 89.8 fL (80.0-100.0); Platelet Count 220 K/uL (130-400); RDW Standard Deviation 44.2 fL (36.4-46.3); Red Blood Count 4.60 M/uL (4.70-6.10); White Blood Count 7.01 K/ul (4.8-10.8)
[2025-03-15 15:26] LABS: Anion Gap 8.0 (3-11); Blood Urea Nitrogen 18.0 mg/dl (6-23); Calcium 9.2 mg/dl (8.6-10.3); Carbon Dioxide 26.0 mmol/L (21-32); Chloride 103.0 mmol/L (98-107); Creatinine Clr Calc Pharmacy 59.5 ml/min; Glucose 372.0 mg/dl (70-99(Fasting)); Potassium 4.6 mmol/L (3.5-5.1); Sodium 137.0 mmol/L (136-145)
[2025-03-15 15:58] LABS: Appearance Urine Cloudy (Clear); Bacteria Urine Automated None Seen (None Seen); Cast Urine Automated 0-2 /lpf (0-2); Epithelial Cell Urine Auto 0-2 /hpf (0-2); Glucose Urine UA 3+ (Negative); RBC Urine Automated >20 /hpf (0-2); WBC Urine Automated >50 /hpf (0-5)
--- NOTE | 2025-03-15 16:41 | Emergency Department Note ---
Impression & Plan ANNA (acute kidney injury), UTI (urinary tract infection), Dehydration ED Provider Note NAME: HEBER ADAIR AGE: 70 SEX: M : 1955 ARRIVES VIA: Ambulance INFORMANT: Patient, ED PROVIDER(S): Flakito Farooq MD CHIEF COMPLAINT: Hematuria, confusion HPI: This is a 70-year-old male presenting for hematuria. Patient resides at [facility] at this time. He was noted to have blood around his penis. He has straight caths at this facility. Due to health mental status he has not had a Cook catheter in place. EMS was called due to a possible blood clot being dislodged from his penis. Patient has been confused as per daughter. He has a chronic diarrhea. ROS: See above HPI for pertinent positives & negatives. A total of 10 systems reviewed and were otherwise negative. PHYSICAL EXAMINATION: General: resting comfortably in no acute distress Head: Normocephalic and atraumatic Eyes: Normal inspection, extraocular muscles intact Ear, nose, throat: Normal external exam Neck: Normal range of motion Respiratory: lungs clear to auscultation bilaterally Cardiovascular: Regular rate/rhythm, no murmur GI: soft, nontender, no guarding or rebound Extremities: nontender, moves all extremities Neuro: The patient awake and alert, appropriately conversive, no focal deficits, symmetric faces Skin: Warm, dry, and intact MEDICAL DECISION MAKING: This is 70-year-old male present for hematuria. Patient is clinically dry at this time. Will do screening blood work, urinalysis to assess for hematuria/cystitis. Patient has no current pain - Bloodwork is reviewed showing no significant leukocytosis, anemia, electrolyte. - Creatinine increased from baseline. Elevated glucose no signs of DKA - Urinalysis positive for UTI. -Discussed options with daughter, his primary psychology assistant about admission for discharge. She would like the patient admitted for his UTI and dehydration. Differential diagnosis: Hematuria, UTI, cystitis, dehydration Independent History obtained from: Daughter Diagnostics interpreted by me: ECG: None Cardiac Monitoring: An order was placed for continuous cardiac monitoring. The monitor shows a rate of 55 with sinus rhythm. Past Med/Surg History Problem List Dehydration (Acute) UTI (urinary tract infection) (Acute) ANNA (acute kidney injury) (Acute) Lower urinary tract symptoms (LUTS) Hypothyroidism (acquired) Controlled type 2 diabetes mellitus Lactic acidosis Hypoglycemia Fecal impaction Vascular dementia Weakness (Acute) HTN (hypertension) (Acute) Cerebral ventriculomegaly Edema History of prostate cancer Aortic stenosis Hypomagnesemia (Acute) longterm resident Hypertension (Acute) Falls frequently Parkinsonism Paroxysmal A-fib (07/2020) Paroxysmal SVT (supraventricular tachycardia) (Acute) Osteoporosis Dyslipidemia Constipation Lumbar back pain Gait apraxia Cardiomyopathy (07/2020) Insomnia Vitamin D deficiency Chews tobacco Medical History Complicated UTI (urinary tract infection) History of alcoholism Tubular adenoma of colon Pulmonary nodule Leah's thyroiditis Erectile dysfunction Dilated aortic root Cognitive impairment Closed head injury Renal cyst Subcapital fracture of left hip 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 Septic prepatellar bursitis (07/2020) Surgical History S/P ORIF (open reduction internal fixation) fracture History of total left hip arthroplasty History of shoulder surgery History of left knee surgery Family History Mother Cancer Grandmother (Paternal) Stroke Grandfather (Paternal) Stroke Other Myocardial infarction Denies family history of Ovarian cancer Prostate cancer Breast cancer Colorectal cancer Social History Smoking Status: Never smoker Tobacco Type: Smokeless Tobacco (Dip or Chew) Age Started Using Tobacco: 16; Age Quit Using Tobacco: 26; Second Hand Exposure: No (unable to obtain d/t patient condition.); Do You Dip or Chew Tobacco: Yes; Preferred Language: Estonian Communication Ability: Impaired Communication Ability Comment: unable to obtain d/t patient condition. 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 Beliefs That Will Affect Care: None marital status: Single Current Living Situation: [facility] Current Living Situation Comment: [facility] current occupational status: retired current occupation: [employer] How many Children do You have: 0 Feels Safe at Home: Yes Childhood Exposure to Second-Hand Smoke: Yes Diet: diabetic caffeine: Yes (iced tea ) Dental Care, Regularly: No Physical Activity Frequency: Does not Exercise Seatbelt Use: always Sunscreen Use: No Assistive Devices: Walker and Wheelchair Allergies Allergies Allergy/AdvReac Type Severity Reaction Status Date / Time amlodipine Allergy Severe HIVES/CONFUSION/SEVERE Verified 03/15/25 16:50 LEG EDEMA Home Meds Home Medications Medication Instructions Recorded Confirmed docusate sodium 100 mg capsule 100 mg PO DAILY 11/17/22 03/15/25 calcium carbonate (Calcium 600) 600 mg PO BID 08/14/24 03/15/25 tramadol 50 mg tablet 25 mg PO Q8 PRN .severe pain 08/14/24 03/15/25 cranberry extract 500 mg capsule 500 mg PO BIDM 02/13/25 03/15/25 (Cranberry Concentrate) glucagon 1 mg/0.2 mL subcutaneous 1 mg subcut DIRECTED PRN severe 03/15/25 03/15/25 auto-injector (Gvoke HypoPen hypoglycemia 2-Pack) insulin aspart U-100 100 unit/mL 0 unit subcut TIDM 03/15/25 03/15/25 (3 mL) subcutaneous pen (Novolog FlexPen U-100 Insulin aspart) metformin 850 mg tablet 850 mg PO BIDM 03/15/25 03/15/25 Previous Rx's Medication Instructions Recorded Wheeled Walker #1 ea 03/21/21 cholecalciferol (vitamin D3) 50 2,000 unit PO DAILY #90 caps 01/23/22 mcg (2,000 unit) capsule acetaminophen 500 mg tablet 1,000 mg (2 x 500 mg) PO TID #90 06/20/22 (Tylenol Extra Strength) tabs blood sugar diagnostic (OneTouch #200 ea 11/02/22 Ultra Test strips) Wheelchair (Manual) #1 ea 02/21/23 polyethylene glycol 3350 17 17 g PO DAILY #119 grams 01/17/24 gram/dose oral powder (Miralax) hydroxyzine HCl 25 mg tablet 25 mg PO BID PRN nausea and 02/22/24 vomiting #12 tabs lisinopril 30 mg tablet 30 mg PO QAM #180 tabs 07/16/24 nystatin 100,000 unit/gram topical 1 applic topical BID PRN rash #60 11/24/24 powder grams atorvastatin 40 mg tablet 40 mg PO HS #90 tabs 12/05/24 potassium chloride 20 mEq 20 meq PO BID #180 tabs 12/22/24 tablet,extended release blood sugar diagnostic (OneTouch #100 ea 10/16/25 Ultra Test strips) rivaroxaban 20 mg tablet (Xarelto) 20 mg PO HS #30 tabs 01/08/25 levothyroxine 150 mcg tablet 150 mcg PO DAILYBB #90 tabs 01/09/25 Saccharomyces boulardii 250 mg 250 mg PO BID #60 caps 02/16/25 capsule (Florastor) amiodarone 200 mg tablet 200 mg PO DAILY #90 tabs 02/16/25 magnesium oxide 400 mg PO BID #180 tabs 02/16/25 zinc oxide 40 % topical ointment 1 applic topical 6XD PRN skin 02/16/25 (Aquaphor Baby Diaper Rash) irritation #397 grams insulin glargine 100 unit/mL (3 14 unit (0.14 mL) subcut BID #15 mL 02/17/25 mL) subcutaneous pen (Lantus Solostar U-100 Insulin) pen needle, diabetic, safety 30 #200 ea 02/17/25 gauge x 1/3" clobetasol 0.05 % topical ointment 1 applic topical BID #60 grams 02/24/25 loperamide 2 mg capsule 2 mg PO Q6H PRN Diarrhea #30 caps 03/06/25 Results & Data (ED) Vital Signs Vital Signs - 24 hr 03/15/25 13:56 03/15/25 14:43 03/15/25 15:09 Temperature 36.4 C L Temperature Source Oral Pulse Rate 64 61 Pulse Rate [Apical] 57 L Respiratory Rate 18 17 Respiratory Effort / Characteristics Non-Labored Spontaneous Respiratory Depth Normal Respiratory Pattern Regular Blood Pressure 178/115 H Blood Pressure [Right Arm] 159/99 H Blood Pressure Mean 136 Blood Pressure Mean [Right Arm] 119 Pulse Oximetry 97 97 Oxygen Delivery Method Room Air Room Air Sepsis Recent Fever Within 48 Hours No Sepsis New/Unexplained Change in Mental Status No Sepsis Action Taken by Nursing No Action Required 03/15/25 17:00 Temperature Temperature Source Pulse Rate Pulse Rate [Apical] 55 L Respiratory Rate 16 Respiratory Effort / Characteristics Respiratory Depth Respiratory Pattern Blood Pressure Blood Pressure [Right Arm] 156/106 H Blood Pressure Mean Blood Pressure Mean [Right Arm] 122 Pulse Oximetry 93 Oxygen Delivery Method Room Air Sepsis Recent Fever Within 48 Hours Sepsis New/Unexplained Change in Mental Status Sepsis Action Taken by Nursing Laboratory Data 03/15/25 14:45 03/15/25 14:45 Lab Results 03/15/25 03/15/25 Range/Units 14:45 15:38 WBC 7.01 (4.8-10.8) K/ul RBC 4.60 L (4.70-6.10) M/uL Hgb 13.8 L (14.0-18.0) g/dL Hct 41.3 L (42.0-52.0) % MCV 89.8 (80.0-100.0) fL MCH 30.0 (25.0-34.0) pg MCHC 33.4 (32.0-36.0) g/dL RDW Std Deviation 44.2 (36.4-46.3) fL RDW Coeff of Robyn 13.6 (11.5-14.5) % Plt Count 220 (130-400) K/uL MPV 8.9 L (9.4-12.4) fL Immature Gran % (Auto) 0.3 % Neut % (Auto) 63.8 % Lymph % (Auto) 23.0 % [place] % (Auto) 8.1 % Eos % (Auto) 3.9 % Baso % (Auto) 0.9 % Neut # (Auto) 4.48 (1.40-6.50) K/uL Lymph # (Auto) 1.61 (1.20-3.40) K/uL [place] # (Auto) 0.57 (0.11-0.59) K/uL Eos # (Auto) 0.27 (0.00-0.50) K/uL Baso # (Auto) 0.06 (0.00-0.20) K/uL Immature Gran # (Auto) 0.02 (0.01-0.20) K/uL Sodium 137 (136-145) mmol/L Potassium 4.6 (3.5-5.1) mmol/L Chloride 103 (98-107) mmol/L Carbon Dioxide 26 (21-32) mmol/L Anion Gap 8 (3-11) BUN 18 (6-23) mg/dl Creatinine 1.43 H (0.6-1.4) mg/dl Est Cr Clr Drug Dosing 59.5 ml/min eGFR 52.71 BUN/Creatinine Ratio 12.6 (10-20) Glucose 372 H* (70-99(Fasting)) mg/dl Calcium 9.2 (8.6-10.3) mg/dl Urine Color Yellow Urine Appearance Cloudy A (Clear) Urine pH 6.0 (4.5-7.5) Ur Specific [place] 1.036 H (1.000-1.030) Urine Protein 1+ H (Negative) Urine Glucose (UA) 3+ H (Negative) Urine Ketones Trace H (Negative) Urine Blood 3+ H (Negative) Urine Nitrite Negative (Negative) Urine Bilirubin Negative (Negative) Urine Urobilinogen Negative (Negative) Ur Leukocyte Esterase 2+ H (Negative) Urine WBC (Auto) >50 H (0-5) /hpf Urine RBC (Auto) >20 H (0-2) /hpf U Hyaline Cast (Auto) 0-2 (0-2) /lpf U Epithel Cells (Auto) 0-2 (0-2) /hpf Urine Bacteria (Auto) None Seen (None Seen) Urine Comment Administered Medications Sodium Chloride (Nss) 1,000 mls @ 999 mls/hr IV .Q1H1M ONE Stop: 03/15/25 17:36 Last Admin: 03/15/25 16:57 Dose: 999 mls/hr Documented By: GALEN Discontinued Medications Ceftriaxone Sodium (Rocephin) 2,000 mg in 50 mls @ 100 mls/hr IV NOW STA Stop: 03/15/25 17:05 Last Admin: 03/15/25 16:57 Dose: 100 mls/hr Documented By: GALEN Discharge Plan Visit Data Chief Complaint: Hematuria Stated Complaint: BLEEDING ED Provider: Flakito Farooq Discharge Problem: ANNA (acute kidney injury), UTI (urinary tract infection), Dehydration Patient Disposition: Admitted As Inpatient Condition: Fair Forms Stand Alone Forms: [facility] Prescriptions Prescriptions: No Action (DME) Wheeled Walker Misc See Rx Instructions .Route Qty: 1 0RF Rx Instructions: As directed. with seat if possible (DME) OneTouch Ultra Test Strip See Rx Instructions .Route Qty: 200 11RF Rx Instructions: Test blood sugars 4 time a day (DME) Wheelchair (Manual) Device See Rx Instructions .Route Qty: 1 0RF Rx Instructions: Standard wheelchair with leg rests. [id number] exam on 02/16/23. Estimated length of need: Lifetime. lisinopril 30 mg tablet 30 mg PO QAM Qty: 180 3RF nystatin 100,000 unit/gram powder 1 applic topical BID PRN (Reason: rash) Qty: 60 2RF atorvastatin 40 mg tablet 40 mg PO HS Qty: 90 1RF potassium chloride 20 mEq tablet extended release 20 meq PO BID Qty: 180 1RF Xarelto 20 mg tablet 20 mg PO HS Qty: 30 11RF amiodarone 200 mg tablet 200 mg PO DAILY Qty: 90 1RF clobetasol 0.05 % ointment 1 applic topical BID Qty: 60 0RF Rx Instructions: Apply to areas of the trunk twice daily x 2 weeks as directed. loperamide 2 mg capsule 2 mg PO Q6H PRN (Reason: Diarrhea) Qty: 30 0RF docusate sodium 100 mg capsule 100 mg PO DAILY Hold Instructions: Home Medication placed on hold at Doctor's office cholecalciferol (vitamin D3) 50 mcg (2,000 unit) capsule 2,000 unit PO DAILY Qty: 90 3RF insulin glargine [Lantus Solostar U-100 Insulin] 100 unit/mL (3 mL) insulin pen 14 unit subcut BID Qty: 15 5RF (DME) pen needle, diabetic, safety 30 gauge x 1/3" needle See Rx Instructions .Route Qty: 200 11RF Rx Instructions: use for insuling injections up to five times daily magnesium oxide 400 mg magnesium tablet 400 mg PO BID Qty: 180 1RF Saccharomyces boulardii [Florastor] 250 mg capsule 250 mg PO BID Qty: 60 0RF zinc oxide [Aquaphor Baby Diaper Rash] 40 % ointment 1 applic topical 6XD PRN (Reason: skin irritation) Qty: 397 1RF (DME) OneTouch Ultra Test Strip See Rx Instructions .Route Qty: 100 5RF Rx Instructions: check blood sugar AC and HS and PRN with signs of hypo/hyper glycemia levothyroxine 150 mcg tablet 150 mcg PO DAILYBB Qty: 90 1RF acetaminophen [Tylenol Extra Strength] 500 mg Tablet 1,000 mg PO TID MDD 3 GRAMS APAP/24 HOURS Qty: 90 0RF polyethylene glycol 3350 [Miralax] 17 gram/dose powder 17 g PO DAILY Qty: 119 0RF hydroxyzine HCl 25 mg tablet 25 mg PO BID PRN (Reason: nausea and vomiting) Qty: 12 0RF Rx Instructions: monitor for drowsiness tramadol 50 mg tablet 25 mg PO Q8 PRN (Reason: .severe pain) calcium carbonate [Calcium 600] 600 mg calcium (1,500 mg) Tablet 600 mg PO BID cranberry extract [Cranberry Concentrate] 500 mg Capsule 500 mg PO BIDM Rx Instructions: administer with meals metformin 850 mg tablet 850 mg PO BIDM Rx Instructions: Take with a meal, hold altogether if diarrhea occurs insulin aspart U-100 [Novolog FlexPen U-100 Insulin] 100 unit/mL (3 mL) insulin pen 0 unit subcut TIDM MDD 20 u Rx Instructions: Inject SQ TID before meals for BG <86 = 0 units, BG 87-150 = 3 units, BG 151- 190 = 4 units, BG 191-230 = 5 units, BG 231-270 = 6 units, 271-310 = 7 units, 311-350 = 8 u, 351-390 = 9 u, 391-430 = 10 u, 431-470 = 11 u and CONTACT provider. Gvoke HypoPen 2-Pack 1 mg/0.2 mL auto-injector 1 mg subcut DIRECTED PRN (Reason: severe hypoglycemia) Referrals Referrals: Faraz Ascencio [Primary Care Provider] -
[2025-03-15] MEDS: SODIUM CHLORIDE 0.9% 1,000 ML IV ONE (16:57)
[2025-03-15] MEDS: cefTRIAXone SODIUM 2,000 MG/50 ML BAG IV STA (16:57)
--- NOTE | 2025-03-15 18:34 | History & Physical Report ---
Date of Service March 15, 2025 Assessment & Plan (1) Dehydration: (2) ANNA (acute kidney injury): (3) Hypothyroidism (acquired): (4) Controlled type 2 diabetes mellitus: (5) UTI (urinary tract infection): Plan 70-year-old male with a past medical history of chronic diarrhea, type 2 diabetes mellitus, dementia, history of atrial fibrillation on anticoagulation, hyperlipidemia, ambulatory dysfunction/wheelchair dependent, presents to the hospital with hematuria, acute kidney injury: #hematuria #acute kidney injury - admit to [facility] -Will rule out viral process -IV fluids -Trend creatinine -Patient ordered for intravenous antibiotics, cultures pending -Follow-up on culture results #Type 2 diabetes mellitus -Continue patient on home sliding scale along with long-acting insulin, family member quite insistent that they continue the home regiment as he has been well- controlled on this -Hypoglycemia protocol #hypertension - hold home lisinopril #atrial fibrillation -Will check EKG, continue amiodarone, continue anticoagulation #Hypothyroidism -Continue home levothyroxine dosing #Diarrhea -Will check stool cultures -Patient is supposed to follow-up with gastroenterology in the next 30 days -Based on history, imaging possibly due to overflow incontinence -Depending on hospital course, consideration of CT imaging -Continue probiotic, psyllium husk. CODE STATUS reviewed with the patient's healthcare proxy at the bedside, requesting full code at this time. History of Present Illness Chief Complaint: Hematuria Primary Care Provider: Faraz Nunez Proctor 70-year-old male with a past medical history as mentioned below presents to the hospital from long-term care facility for complaints of hematuria. History is obtained from the patient's healthcare proxy at the bedside. As per them the patient started experiencing some hematuria earlier today at the facility. Overnight he also had some elements of confusion, agitation and getting upset at jail staff. Patient has been having some chronic diarrhea for few months for which he will be seeing gastroenterology next month. The patient himself denies any chest pain, no trouble breathing, no nausea or vomiting. Appetite is okay. He has extremely poor dentition but per POA he is able to chew food normally. He denies having any abdominal discomfort. Allergies Allergy/AdvReac Type Severity Reaction Status Date / Time amlodipine Allergy Severe HIVES/CONFUSION/SEVERE Verified 03/15/25 16:50 LEG EDEMA Home Medications Medication Instructions Recorded Confirmed Type Wheeled Walker #1 ea 03/21/21 02/17/25 Rx cholecalciferol (vitamin D3) 50 2,000 unit PO DAILY #90 caps 01/23/22 03/15/25 Rx mcg (2,000 unit) capsule acetaminophen 500 mg tablet 1,000 mg (2 x 500 mg) PO TID #90 06/20/22 03/15/25 Rx (Tylenol Extra Strength) tabs blood sugar diagnostic (OneTouch #200 ea 11/02/22 02/17/25 Rx Ultra Test strips) docusate sodium 100 mg capsule 100 mg PO DAILY 11/17/22 03/15/25 History Wheelchair (Manual) #1 ea 02/21/23 02/17/25 Rx polyethylene glycol 3350 17 17 g PO DAILY #119 grams 01/17/24 03/15/25 Rx gram/dose oral powder (Miralax) hydroxyzine HCl 25 mg tablet 25 mg PO BID PRN nausea and 02/22/24 03/15/25 Rx vomiting #12 tabs lisinopril 30 mg tablet 30 mg PO QAM #180 tabs 07/16/24 03/15/25 Rx calcium carbonate (Calcium 600) 600 mg PO BID 08/14/24 03/15/25 History tramadol 50 mg tablet 25 mg PO Q8 PRN .severe pain 08/14/24 03/15/25 History nystatin 100,000 unit/gram topical 1 applic topical BID PRN rash #60 11/24/24 03/15/25 Rx powder grams atorvastatin 40 mg tablet 40 mg PO HS #90 tabs 12/05/24 03/15/25 Rx potassium chloride 20 mEq 20 meq PO BID #180 tabs 12/22/24 03/15/25 Rx tablet,extended release blood sugar diagnostic (OneTouch #100 ea 01/01/25 02/17/25 Rx Ultra Test strips) rivaroxaban 20 mg tablet (Xarelto) 20 mg PO HS #30 tabs 01/08/25 03/15/25 Rx levothyroxine 150 mcg tablet 150 mcg PO DAILYBB #90 tabs 01/09/25 03/15/25 Rx cranberry extract 500 mg capsule 500 mg PO BIDM 02/13/25 03/15/25 History (Cranberry Concentrate) Saccharomyces boulardii 250 mg 250 mg PO BID #60 caps 02/16/25 03/15/25 Rx capsule (Florastor) amiodarone 200 mg tablet 200 mg PO DAILY #90 tabs 02/16/25 03/15/25 Rx magnesium oxide 400 mg PO BID #180 tabs 02/16/25 03/15/25 Rx zinc oxide 40 % topical ointment 1 applic topical 6XD PRN skin 02/16/25 03/15/25 Rx (Aquaphor Baby Diaper Rash) irritation #397 grams insulin glargine 100 unit/mL (3 14 unit (0.14 mL) subcut BID #15 mL 02/17/25 03/15/25 Rx mL) subcutaneous pen (Lantus Solostar U-100 Insulin) pen needle, diabetic, safety 30 #200 ea 02/17/25 02/17/25 Rx gauge x 1/3" clobetasol 0.05 % topical ointment 1 applic topical BID #60 grams 02/24/25 03/15/25 Rx loperamide 2 mg capsule 2 mg PO Q6H PRN Diarrhea #30 caps 03/06/25 03/15/25 Rx glucagon 1 mg/0.2 mL subcutaneous 1 mg subcut DIRECTED PRN severe 03/15/25 03/15/25 History auto-injector (Gvoke HypoPen hypoglycemia 2-Pack) insulin aspart U-100 100 unit/mL 0 unit subcut TIDM 03/15/25 03/15/25 History (3 mL) subcutaneous pen (Novolog FlexPen U-100 Insulin aspart) metformin 850 mg tablet 850 mg PO BIDM 03/15/25 03/15/25 History Past Med/Surg History Problem List Dehydration (Acute) UTI (urinary tract infection) (Acute) ANNA (acute kidney injury) (Acute) Lower urinary tract symptoms (LUTS) Hypothyroidism (acquired) Controlled type 2 diabetes mellitus Lactic acidosis Hypoglycemia Fecal impaction Vascular dementia Weakness (Acute) HTN (hypertension) (Acute) Cerebral ventriculomegaly Edema History of prostate cancer Aortic stenosis Hypomagnesemia (Acute) shelter resident Hypertension (Acute) Falls frequently Parkinsonism Paroxysmal A-fib (07/2020) Paroxysmal SVT (supraventricular tachycardia) (Acute) Osteoporosis Dyslipidemia Constipation Lumbar back pain Gait apraxia Cardiomyopathy (07/2020) Insomnia Vitamin D deficiency Chews tobacco Medical History Complicated UTI (urinary tract infection) History of alcoholism Tubular adenoma of colon Pulmonary nodule Leah's thyroiditis Erectile dysfunction Dilated aortic root Cognitive impairment Closed head injury Renal cyst Subcapital fracture of left hip 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 Septic prepatellar bursitis (07/2020) Surgical History S/P ORIF (open reduction internal fixation) fracture History of total left hip arthroplasty History of shoulder surgery History of left knee surgery Family History Mother Cancer Grandmother (Paternal) Stroke Grandfather (Paternal) Stroke Other Myocardial infarction Denies family history of Ovarian cancer Prostate cancer Breast cancer Colorectal cancer Social History Smoking Status: Never smoker Tobacco Type: Smokeless Tobacco (Dip or Chew) Age Started Using Tobacco: 16; Age Quit Using Tobacco: 26; Second Hand Exposure: No (unable to obtain d/t patient condition.); Do You Dip or Chew Tobacco: Yes; Preferred Language: Thai Communication Ability: Impaired Communication Ability Comment: unable to obtain d/t patient condition. Saw Feeder Required: No Beliefs That Will Affect Care: None marital status: Single Current Living Situation: Long Term Current Living Situation Comment: [facility] current occupational status: retired current occupation: [employer] How many Children do You have: 0 Feels Safe at Home: Yes Childhood Exposure to Second-Hand Smoke: Yes Diet: diabetic caffeine: Yes (iced tea ) Dental Care, Regularly: No Physical Activity Frequency: Does not Exercise Seatbelt Use: always Sunscreen Use: No Assistive Devices: Walker and Wheelchair Physical Exam Physical Exam: Gen-pt in NAD, awake and alert, Poor dentition CVS-+s1,s2, RRR, no murmurs Lungs-CTA b/l GI-+ bs, normoactive, NT, ND Ext- Right lower extremity with excoriationserythematous patches. Neuro-grossly intact, oriented only to person. Results & Data Results & Data Vital Signs (Past 12 Hours) Vital Signs Temp Pulse Pulse Resp BP BP Pulse Ox 03/15/25 17:00 55 L 16 156/106 H 93 03/15/25 15:09 57 L 17 159/99 H 97 03/15/25 14:43 61 03/15/25 13:56 36.4 C L 64 18 178/115 H 97 O2 Del Method 03/15/25 17:00 Room Air 03/15/25 15:09 Room Air 03/15/25 14:43 03/15/25 13:56 Room Air Laboratory Results 03/15/25 15:38 Urine Culture - Pending Urine,Clean Catch 03/15/25 03/15/25 15:38 14:45 WBC 7.01 RBC 4.60 L Hgb 13.8 L Hct 41.3 L MCV 89.8 MCH 30.0 MCHC 33.4 RDW Std Deviation 44.2 RDW Coeff of Robyn 13.6 Plt Count 220 MPV 8.9 L Immature Gran % (Auto) 0.3 Neut % (Auto) 63.8 Lymph % (Auto) 23.0 [place] % (Auto) 8.1 Eos % (Auto) 3.9 Baso % (Auto) 0.9 Neut # (Auto) 4.48 Lymph # (Auto) 1.61 [place] # (Auto) 0.57 Eos # (Auto) 0.27 Baso # (Auto) 0.06 Immature Gran # (Auto) 0.02 Sodium 137 Potassium 4.6 Chloride 103 Carbon Dioxide 26 Anion Gap 8 BUN 18 Creatinine 1.43 H Est Cr Clr Drug Dosing 59.5 eGFR 52.71 BUN/Creatinine Ratio 12.6 Glucose 372 H* Calcium 9.2 Urine Color Yellow Urine Appearance Cloudy A Urine pH 6.0 Ur Specific [place] 1.036 H Urine Protein 1+ H Urine Glucose (UA) 3+ H Urine Ketones Trace H Urine Blood 3+ H Urine Nitrite Negative Urine Bilirubin Negative Urine Urobilinogen Negative Ur Leukocyte Esterase 2+ H Urine WBC (Auto) >50 H Urine RBC (Auto) >20 H U Hyaline Cast (Auto) 0-2 U Epithel Cells (Auto) 0-2 Urine Bacteria (Auto) None Seen Urine Comment PG Care Time/CCT Total # of Minutes Spent Total Time Spent with Patient: Total time spent is greater than 50% in coordination of care (as documented) at patient's floor/unit and/or counseling patient: Coding Level of Care Code 84725 INT INP/OBS CARE 375MIN Diagnoses Dehydration E86.0 ANNA (acute kidney injury) N17.9 Hypothyroidism (acquired) E03.9 Controlled type 2 diabetes mellitus E11.9 UTI (urinary tract infection) N39.0
[2025-03-15 19:04] LABS: Chlamydia pneumoniae PCR Not Detected (NotDetected); Coronavirus 229E PCR Not Detected (NotDetected); Coronavirus CoV-2 (COVID19)PCR Not Detected (NotDetected); Coronavirus HKU1 PCR Not Detected (NotDetected); Coronavirus NL63 PCR Not Detected (NotDetected); Coronavirus OC43PCR Not Detected (NotDetected); Human Metapneumovirus PCR Not Detected (NotDetected); Parainfluenza Virus 1 PCR Not Detected (NotDetected); Parainfluenza Virus 2 PCR Not Detected (NotDetected); Parainfluenza Virus 3 PCR Not Detected (NotDetected); Parainfluenza Virus 4 PCR Not Detected (NotDetected); Respiratory Syncytial VirusPCR Not Detected (NotDetected); Rhinovirus/Enterovirus PCR Not Detected (NotDetected)
[2025-03-15] MEDS ORDERED: DEXTROSE 50% 50 ML SYRINGE IV PRN (20:35)
[2025-03-15] MEDS ORDERED: GLUCOSE 40% GEL 15 GM TUBE PO PRN (20:35)
[2025-03-15] MEDS ORDERED: MELATONIN 3 MG TAB PO PRN (20:35)
[2025-03-15] MEDS ORDERED: ACETAMINOPHEN 325 MG TAB PO PRN (20:35)
[2025-03-15] MEDS ORDERED: cefTRIAXone SODIUM 2,000 MG/50 ML BAG IV SCH (20:35)
[2025-03-15] MEDS ORDERED: CARBOHYDRATES FOR HYPOGLYCEMIA PO PRN (20:35)
[2025-03-15] MEDS ORDERED: ALUMINUM/MAGNESIUM SUSP 30 ML UDC PO PRN (20:35)
[2025-03-15] MEDS ORDERED: GLUCOSE 10 TAB/TUBE PO PRN (20:35)
[2025-03-15] MEDS ORDERED: POLYETHYLENE (MIRALAX) 17 GM PACK PO PRN (20:35)
[2025-03-15] MEDS ORDERED: GLUCAGON FOR INJ 1 MG VIAL SQ PRN (20:35)
[2025-03-15] MEDS ORDERED: MAGNESIUM HYDROXIDE SUSP 30 ML UDC PO PRN (20:35)
--- NOTE | 2025-03-15 21:04 | XRay Report ---
HISTORY: Shortness of breath TECHNIQUE: Portable AP radiograph of the chest. COMPARISON: Chest CT dated 02/24/2025.Chest radiograph dated 02/24/2025. FINDINGS: No focal lung consolidation. No pneumothorax or pleural effusion. Mild cardiomegaly. Left-sided aortic arch. Midline trachea. Degenerative changes of the shoulders and spine. No acute osseous abnormality. IMPRESSION: * No acute cardiopulmonary findings. * Cardiomegaly. Electronically signed by Obed Haywood 03-15-2025 9:03 PM
[2025-03-15] MEDS: INSULIN ASPART PER UNIT CHARGE SC SCH (22:00)
[2025-03-15] MEDS: CLOBETASOL PROPIONATE 0.05% OINT 15 GM TUBE EXT SCH (22:04)
[2025-03-15] MEDS: DOCUSATE SODIUM 100 MG CAP PO SCH (22:05)
[2025-03-15] MEDS: SODIUM CHLORIDE 0.9% 1,000 ML IV SCH (22:05)
[2025-03-15] MEDS: AMIODARONE 200 MG TAB PO SCH (22:07)
[2025-03-15] MEDS: ATORVASTATIN 40 MG TAB PO SCH (22:07)
[2025-03-15] MEDS: RIVAROXABAN 20 MG TAB PO SCH (22:07)
[2025-03-15] MEDS: ACETAMINOPHEN 500 MG TAB PO SCH (22:07)
[2025-03-16 06:00] LABS: Hematocrit (blood only) 38.1 % (42.0-52.0); Hemoglobin 13.4 g/dL (14.0-18.0); Immature Granulocytes # (auto) 0.02 K/uL (0.01-0.20); Immature Granulocytes % (auto) 0.3 %; Mean Corpuscular Hemoglobin 31.2 pg (25.0-34.0); Mean Corpuscular Volume 88.6 fL (80.0-100.0); Platelet Count 205 K/uL (130-400); RDW Standard Deviation 42.6 fL (36.4-46.3); Red Blood Count 4.30 M/uL (4.70-6.10); White Blood Count 7.10 K/ul (4.8-10.8)
[2025-03-16] MEDS: LEVOTHYROXINE SODIUM 150 MCG TABLET PO SCH (06:16)
[2025-03-16 06:22] LABS: Alanine Aminotransferase 12.0 U/L (7-52); Albumin Globulin Ratio 1.3 (0.9-2); Albumin Level 3.6 gm/dl (3.4-5.0); Alkaline Phosphatase 68.0 U/L (34-104); Anion Gap 7.0 (3-11); Bilirubin,Total 0.6 mg/dl (0.2-1.0); Blood Urea Nitrogen 12.0 mg/dl (6-23); Calcium 8.0 mg/dl (8.6-10.3); Carbon Dioxide 27.0 mmol/L (21-32); Chloride 107.0 mmol/L (98-107); Creatinine Clr Calc Pharmacy 93.2 ml/min; Globulin 2.7 gm/dl (2.5-4.0); Glucose 92.0 mg/dl (70-99(Fasting)); Magnesium 1.5 mg/dl (1.7-2.4); Potassium 3.4 mmol/L (3.5-5.1); Sodium 141.0 mmol/L (136-145); Total Protein 6.3 gm/dl (6.0-8.3)
[2025-03-16] MEDS: LANTUS PER UNIT CHARGE SC SCH (08:58)
[2025-03-16] MEDS: POTASSIUM CHLORIDE CRTAB 20 MEQ TABCR PO STA (08:59)
[2025-03-16] MEDS: MAGNESIUM SULFATE / D5W 1 GM/100 ML BAG IV SCH (09:00)
[2025-03-16] MEDS: SACCHAROMYCES BOULARDII 250 MG CAP PO SCH (09:01)
[2025-03-16] MEDS: CHOLECALCIFEROL 25 MCG (1000 UNITS) TAB PO SCH (09:01)
[2025-03-16] MEDS: PSYLLIUM HUSK 4GM PACKET PO SCH (09:01)
[2025-03-16] MEDS: MAGNESIUM OXIDE 400 MG TAB PO SCH (09:02)
[2025-03-16] MEDS: CALCIUM CARBONATE 1250MG TAB PO SCH (09:02)
--- NOTE | 2025-03-16 14:42 | Electrocardiogram Report ---
Test Reason : Blood Pressure : */* mmHG Vent. Rate : 53 BPM Atrial Rate : 53 BPM P-R Int : 224 ms QRS Dur : 144 ms QT Int : 482 ms P-R-T Axes : 49 -40 4 degrees QTcB Int : 452 ms Sinus bradycardia with 1st degree A-V block Left axis deviation Right bundle branch block Abnormal ECG When compared with ECG of 13-Feb-2025 11:10, No significant change was found Confirmed by Reza Victor ([id number]) on 03/16/2025 2:41:45 PM Referred By: REFERRED SELF Confirmed By: Reza Victor
[2025-03-16] MEDS: cefTRIAXone SODIUM 2,000 MG/50 ML BAG IV SCH (17:02)
--- NOTE | 2025-03-16 17:58 | Hospitalist Progress Note ---
Date of Service March 16, 2025 Assessment & Plan (1) UTI (urinary tract infection): (2) Dehydration: Plan 70-year-old male with a past medical history of chronic diarrhea, type 2 diabetes mellitus, dementia, history of atrial fibrillation on anticoagulation, hyperlipidemia, ambulatory dysfunction/wheelchair dependent, presents to the hospital with hematuria, acute kidney injury: #hematuria #acute kidney injury - Negative for viral process. -IV fluids Stopped on 1229 as creatinine has improved. -Trend creatinine -Patient ordered for intravenous antibiotics, urine cultures indicate aerococcus-will review with ID #Type 2 diabetes mellitus -Continue patient on home sliding scale along with long-acting insulin, family member quite insistent that they continue the home regiment as he has been well- controlled on this -Hypoglycemia protocol #hypertension - hold home lisinopril, Can likely restart in the next 24 hours. #atrial fibrillation -continue amiodarone, continue anticoagulation #Hypothyroidism -Continue home levothyroxine dosing #Diarrhea -Will check stool cultures -Patient is supposed to follow-up with gastroenterology in the next 30 days -Based on history, imaging possibly due to overflow incontinence -Depending on hospital course, consideration of CT imaging -Continue probiotic, psyllium husk. CODE STATUS reviewed with the patient's healthcare proxy at the bedside, requesting full code at this time. Admission and Anticipated Discharge Date Admission Date: March 15, 2025 Subjective patient seen and examined. He denies having any abdominal pain at this time. No nausea or vomiting. No fevers or chills. Physical Exam Physical Exam: Gen-pt in NAD, awake and alert, Poor dentition CVS-+s1,s2, RRR, no murmurs Lungs-CTA b/l GI-+ bs, normoactive, NT, ND Ext- Right lower extremity with excoriationserythematous patches. Neuro-grossly intact, oriented only to person. Results & Data Results & Data Vital Signs (Past 12 Hours) Vital Signs Temp Pulse Resp BP Pulse Ox O2 Del Method 03/16/25 15:45 36.6 C 56 L 20 145/95 H 96 Room Air 03/16/25 12:11 36.5 C 52 L 16 144/90 H 98 Room Air 03/16/25 08:30 Room Air Laboratory Results 03/15/25 15:38 Urine Culture - Preliminary Urine,Clean Catch Aerococcus sanguinicola 03/16/25 03/16/25 03/16/25 16:53 11:49 08:06 WBC RBC Hgb Hct MCV MCH MCHC RDW Std Deviation RDW Coeff of Robyn Plt Count MPV Immature Gran % (Auto) Neut % (Auto) Lymph % (Auto) Stanly % (Auto) Eos % (Auto) Baso % (Auto) Neut # (Auto) Lymph # (Auto) Stan[place] # (Auto) Eos # (Auto) Baso # (Auto) Immature Gran # (Auto) Sodium Potassium Chloride Carbon Dioxide Anion Gap BUN Creatinine Est Cr Clr Drug Dosing eGFR BUN/Creatinine Ratio Glucose POC Glucose 168 H 228 H 126 H Calcium Magnesium Total Bilirubin AST ALT Alkaline Phosphatase Total Protein Albumin Globulin Albumin/Globulin Ratio Nasal Screen MRSA (PCR) Adenovirus (PCR) B. pertussis DNA (PCR) B.parapertussis DNA PCR C. pneumoniae DNA (PCR) Coronavirus OC43 (PCR) Coronavirus HKU1 (PCR) Coronavirus 229E (PCR) SARS-CoV-2 (PCR) Coronavirus NL63 (PCR) Human Metapneumovir PCR Influenza Type A (PCR) Influenza Type B (PCR) M. pneumoniae (PCR) Parainfluenza 1 (PCR) Parainfluenza 2 (PCR) Parainfluenza 3 (PCR) Parainfluenza 4 (PCR) RSV (PCR) Entero/Rhino (PCR) 03/16/25 03/16/25 03/15/25 05:28 03:15 21:11 WBC 7.10 RBC 4.30 L Hgb 13.4 L Hct 38.1 L MCV 88.6 MCH 31.2 MCHC 35.2 RDW Std Deviation 42.6 RDW Coeff of Robyn 13.2 Plt Count 205 MPV 9.0 L Immature Gran % (Auto) 0.3 Neut % (Auto) 53.9 Lymph % (Auto) 29.9 Stanly % (Auto) 8.9 Eos % (Auto) 6.2 Baso % (Auto) 0.8 Neut # (Auto) 3.83 Lymph # (Auto) 2.12 Stanly # (Auto) 0.63 H Eos # (Auto) 0.44 Baso # (Auto) 0.06 Immature Gran # (Auto) 0.02 Sodium 141 Potassium 3.4 L D Chloride 107 Carbon Dioxide 27 Anion Gap 7 BUN 12 Creatinine 0.89 D Est Cr Clr Drug Dosing 93.2 eGFR 92.19 BUN/Creatinine Ratio 13.5 Glucose 92 POC Glucose 171 H Calcium 8.0 L Magnesium 1.5 L Total Bilirubin 0.6 AST 11 L ALT 12 Alkaline Phosphatase 68 Total Protein 6.3 Albumin 3.6 Globulin 2.7 Albumin/Globulin Ratio 1.3 Nasal Screen MRSA (PCR) Negative Adenovirus (PCR) B. pertussis DNA (PCR) B.parapertussis DNA PCR C. pneumoniae DNA (PCR) Coronavirus OC43 (PCR) Coronavirus HKU1 (PCR) Coronavirus 229E (PCR) SARS-CoV-2 (PCR) Coronavirus NL63 (PCR) Human Metapneumovir PCR Influenza Type A (PCR) Influenza Type B (PCR) M. pneumoniae (PCR) Parainfluenza 1 (PCR) Parainfluenza 2 (PCR) Parainfluenza 3 (PCR) Parainfluenza 4 (PCR) RSV (PCR) Entero/Rhino (PCR) 03/15/25 17:52 WBC RBC Hgb Hct MCV MCH MCHC RDW Std Deviation RDW Coeff of Robyn Plt Count MPV Immature Gran % (Auto) Neut % (Auto) Lymph % (Auto) Stanly % (Auto) Eos % (Auto) Baso % (Auto) Neut # (Auto) Lymph # (Auto) Stanly # (Auto) Eos # (Auto) Baso # (Auto) Immature Gran # (Auto) Sodium Potassium Chloride Carbon Dioxide Anion Gap BUN Creatinine Est Cr Clr Drug Dosing eGFR BUN/Creatinine Ratio Glucose POC Glucose Calcium Magnesium Total Bilirubin AST ALT Alkaline Phosphatase Total Protein Albumin Globulin Albumin/Globulin Ratio Nasal Screen MRSA (PCR) Adenovirus (PCR) Not Detected B. pertussis DNA (PCR) Not Detected B.parapertussis DNA PCR Not Detected C. pneumoniae DNA (PCR) Not Detected Coronavirus OC43 (PCR) Not Detected Coronavirus HKU1 (PCR) Not Detected Coronavirus 229E (PCR) Not Detected SARS-CoV-2 (PCR) Not Detected Coronavirus NL63 (PCR) Not Detected Human Metapneumovir PCR Not Detected Influenza Type A (PCR) Not Detected Influenza Type B (PCR) Not Detected M. pneumoniae (PCR) Not Detected Parainfluenza 1 (PCR) Not Detected Parainfluenza 2 (PCR) Not Detected Parainfluenza 3 (PCR) Not Detected Parainfluenza 4 (PCR) Not Detected RSV (PCR) Not Detected Entero/Rhino (PCR) Not Detected Diagnostic Findings Chest X-Ray 03/15/25 18:23 HISTORY: Shortness of breath TECHNIQUE: Portable AP radiograph of the chest. COMPARISON: Chest CT dated 02/24/2025.Chest radiograph dated 02/24/2025. FINDINGS: No focal lung consolidation. No pneumothorax or pleural effusion. Mild cardiomegaly. Left-sided aortic arch. Midline trachea. Degenerative changes of the shoulders and spine. No acute osseous abnormality. IMPRESSION: * No acute cardiopulmonary findings. * Cardiomegaly. Electronically signed by Obed Haywood 03-15-2025 9:03 PM PG Care Time/CCT Total # of Minutes Spent Total Time Spent with Patient: Total time spent is greater than 50% in coordination of care (as documented) at patient's floor/unit and/or counseling patient: Coding Level of Care Code 92762 SUB INP/OBS CARE 3/50MIN Diagnoses UTI (urinary tract infection) N39.0 Dehydration E86.0
--- NOTE | 2025-03-17 09:03 | Infectious Disease Consult ---
Date of Consultation March 17, 2025 Assessment & Plan (1) UTI (urinary tract infection): (2) ANNA (acute kidney injury): Plan Problems: #UTI #Hematuria #ANNA: improved Micro: 03/15 Ucx: >100K Aerococcus sanguinicola Abx: Ceftriaxone 03/15 - present 70 yo M with history of T2DM, vascular dementia, HTN, paroxysmal afib who presented on 03/15 from residential care facility for complaints of hematuria, admitted with UTI. Per patient's healthcare proxy at bedside, patient began experiencing hematuria earlier that day at the facility. Overnight, also had some elements of confusion, agitation, getting upset at nursing staff. Pt denied chest pain, shortness of breath, N/V, abd pain. Has been having some chronic diarrhea for a few months for which he will be seeing GI next month. On presentation, pt was afebrile, hypertensive. Labs showed WBC 7, Cr 1.43 (baseline ~0.9). UA with >50 WBCs. RVP negative. CXR with no acute findings. He was started on ceftriaxone 2 g IV q24h for UTI. UCx grew Aerococcus sanguinicola, for which ID is consulted. Discussion: Aerococcus sanguinicola is a bacteria that can cause UTIs. Will treat as an uncomplicated cystitis. Aerococcus sanguinicola is generally susceptible to penicillins, cephalosporins. Recommendations: - Can transition to amoxicillin 875 mg PO q12h through 03/21/25 to complete a total 7 day course of antibiotics (including the ceftriaxone he has received here) Will sign off Consultation Information This patient recommendation is based on a telemedicine consult request which was completed asynchronously through chart review and information provided by the primary physician. The patient was not seen or examined today. The evaluation is consultative in nature and all patient care and treatment decisions can either be accepted or rejected by the patient's primary hospital-based treating physician using their own independent medical judgment for their patient. Plant Mechanic contact information: Please call [facility] . (Phone Number For Physician Use Only) Time Spent Reviewing Chart: 31+ minutes History of Present Illness Reason for Consultation: UTI Attending Physician: Nikky Nazario MD History of Present Illness 70 yo M with history of T2DM, vascular dementia, HTN, paroxysmal afib who presented on 03/15 from residential care facility for complaints of hematuria. Per patient's healthcare proxy at bedside, patient began experiencing hematuria earlier that day at the facility. Overnight, also had some elements of confusion, agitation, getting upset at nursing staff. Pt denied chest pain, shortness of breath, N/V, abd pain. Has been having some chronic diarrhea for a few months for which he will be seeing GI next month. On presentation, pt was afebrile, hypertensive. Labs showed WBC 7, Cr 1.43 (baseline ~0.9). UA with >50 WBCs. RVP negative. CXR with no acute findings. He was started on ceftriaxone 2 g IV q24h for UTI. UCx grew Aerococcus sanguinicola, for which ID is consulted. Allergies Allergy/AdvReac Type Severity Reaction Status Date / Time amlodipine Allergy Severe HIVES/CONFUSION/SEVERE Verified 03/15/25 16:50 LEG EDEMA Home Medications Medication Instructions Recorded Confirmed Type Wheeled Walker #1 ea 03/21/21 02/17/25 Rx cholecalciferol (vitamin D3) 50 2,000 unit PO DAILY #90 caps 01/23/22 03/15/25 Rx mcg (2,000 unit) capsule acetaminophen 500 mg tablet 1,000 mg (2 x 500 mg) PO TID #90 06/20/22 03/15/25 Rx (Tylenol Extra Strength) tabs blood sugar diagnostic (OneTouch #200 ea 11/02/22 02/17/25 Rx Ultra Test strips) docusate sodium 100 mg capsule 100 mg PO DAILY 11/17/22 03/15/25 History Wheelchair (Manual) #1 ea 02/21/23 02/17/25 Rx polyethylene glycol 3350 17 17 g PO DAILY #119 grams 01/17/24 03/15/25 Rx gram/dose oral powder (Miralax) hydroxyzine HCl 25 mg tablet 25 mg PO BID PRN nausea and 02/22/24 03/15/25 Rx vomiting #12 tabs lisinopril 30 mg tablet 30 mg PO QAM #180 tabs 07/16/24 03/15/25 Rx calcium carbonate (Calcium 600) 600 mg PO BID 08/14/24 03/15/25 History tramadol 50 mg tablet 25 mg PO Q8 PRN .severe pain 08/14/24 03/15/25 History nystatin 100,000 unit/gram topical 1 applic topical BID PRN rash #60 11/24/24 03/15/25 Rx powder grams atorvastatin 40 mg tablet 40 mg PO HS #90 tabs 12/05/24 03/15/25 Rx potassium chloride 20 mEq 20 meq PO BID #180 tabs 12/22/24 03/15/25 Rx tablet,extended release blood sugar diagnostic (OneTouch #100 ea 01/01/25 02/17/25 Rx Ultra Test strips) rivaroxaban 20 mg tablet (Xarelto) 20 mg PO HS #30 tabs 01/08/25 03/15/25 Rx levothyroxine 150 mcg tablet 150 mcg PO DAILYBB #90 tabs 01/09/25 03/15/25 Rx cranberry extract 500 mg capsule 500 mg PO BIDM 02/13/25 03/15/25 History (Cranberry Concentrate) Saccharomyces boulardii 250 mg 250 mg PO BID #60 caps 02/16/25 03/15/25 Rx capsule (Florastor) amiodarone 200 mg tablet 200 mg PO DAILY #90 tabs 02/16/25 03/15/25 Rx magnesium oxide 400 mg PO BID #180 tabs 02/16/25 03/15/25 Rx zinc oxide 40 % topical ointment 1 applic topical 6XD PRN skin 02/16/25 03/15/25 Rx (Aquaphor Baby Diaper Rash) irritation #397 grams insulin glargine 100 unit/mL (3 14 unit (0.14 mL) subcut BID #15 mL 02/17/25 03/15/25 Rx mL) subcutaneous pen (Lantus Solostar U-100 Insulin) pen needle, diabetic, safety 30 #200 ea 02/17/25 02/17/25 Rx gauge x 1/3" clobetasol 0.05 % topical ointment 1 applic topical BID #60 grams 02/24/25 03/15/25 Rx loperamide 2 mg capsule 2 mg PO Q6H PRN Diarrhea #30 caps 03/06/25 03/15/25 Rx glucagon 1 mg/0.2 mL subcutaneous 1 mg subcut DIRECTED PRN severe 03/15/25 03/15/25 History auto-injector (Gvoke HypoPen hypoglycemia 2-Pack) insulin aspart U-100 100 unit/mL 0 unit subcut TIDM 03/15/25 03/15/25 History (3 mL) subcutaneous pen (Novolog FlexPen U-100 Insulin aspart) metformin 850 mg tablet 850 mg PO BIDM 03/15/25 03/15/25 History Patient History Medical History Complicated UTI (urinary tract infection) History of alcoholism Tubular adenoma of colon Pulmonary nodule Leah's thyroiditis Erectile dysfunction Dilated aortic root Cognitive impairment Closed head injury Renal cyst Subcapital fracture of left hip 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 Septic prepatellar bursitis (07/2020) Surgical History S/P ORIF (open reduction internal fixation) fracture History of total left hip arthroplasty History of shoulder surgery History of left knee surgery Family History Mother Cancer Grandmother (Paternal) Stroke Grandfather (Paternal) Stroke Other Myocardial infarction Denies family history of Ovarian cancer Prostate cancer Breast cancer Colorectal cancer Social History Smoking Status: Former smoker Tobacco Type: Smokeless Tobacco (Dip or Chew) Age Started Using Tobacco: 16; Age Quit Using Tobacco: 26; Second Hand Exposure: No (unable to obtain d/t patient condition.); Preferred Language: Albanian Communication Ability: Effective Communication Ability Comment: unable to obtain d/t patient condition. Clinical Business Manager Required: No Beliefs That Will Affect Care: None marital status: Single Current Living Situation: Long-Term Current Living Situation Comment: [facility] current occupational status: retired current occupation: [employer] How many Children do You have: 0 Other Information That Helps Us Care for You: No Feels Safe at Home: Yes Safety Concerns: Feels Safe At This Time Childhood Exposure to Second-Hand Smoke: Yes Diet: diabetic caffeine: Yes (iced tea ) Dental Care, Regularly: No Physical Activity Frequency: Does not Exercise Seatbelt Use: always Sunscreen Use: No Assistive Devices: Walker and Wheelchair Results & Data Vital Signs (Past 12 Hours) Vital Signs Temp Pulse Resp BP Pulse Ox O2 Del Method 03/17/25 07:11 36.4 C L 55 L 16 161/100 H 98 Room Air 03/17/25 00:04 Room Air 03/16/25 23:37 55 L 14 149/90 H 98 Room Air
--- NOTE | 2025-03-17 11:21 | Urology Consultation ---
Date of Consultation March 17, 2025 Assessment & Plan (1) UTI (urinary tract infection): (2) Hematuria: 1-year-old male with a past medical history of chronic diarrhea, type 2 diabetes mellitus, dementia, history of atrial fibrillation on anticoagulation, hyperlipidemia, ambulatory dysfunction/wheelchair dependent, presents to the hospital with hematuria, acute kidney injury. History obtained from the chart and nursing. He has been voiding, also has male purewick catheter. Has gross hematuria and passing some clots at the meatus. Patient denies pain/dysuria. Per ID: Aerococcus sanguinicola is a bacteria that can cause UTIs. Will treat as an uncomplicated cystitis. Aerococcus sanguinicola is generally susceptible to penicillins, cephalosporins. Recommendations: - Can transition to amoxicillin 875 mg PO q12h through 03/21/25 to complete a total 7 day course of antibiotics (including the ceftriaxone he has received here) Urology recommendations: Continue antibiotics per ID for treatment of his UTI. If hematuria persists then consider cystoscopy as outpatient. Will check PVR today. If acceptable then he should not need a catheter. He can follow up as outpatient. He does have a calcification posterior to the bladder seen on his ct scan prior to this admission. Could offer tamsulosin if he has other LUTS. History of Present Illness Attending Physician: Nikky Nazario MD History of Present Illness 70-year-old male with a past medical history of chronic diarrhea, type 2 diabetes mellitus, dementia, history of atrial fibrillation on anticoagulation, hyperlipidemia, ambulatory dysfunction/wheelchair dependent, presents to the hospital with hematuria, acute kidney injury. History obtained from the chart and nursing. He has been voiding, also has male purewick catheter. Has gross hematuria and passing some clots at the meatus. Patient denies pain/dysuria. Per ID: Aerococcus sanguinicola is a bacteria that can cause UTIs. Will treat as an uncomplicated cystitis. Aerococcus sanguinicola is generally susceptible to penicillins, cephalosporins. Recommendations: - Can transition to amoxicillin 875 mg PO q12h through 03/21/25 to complete a total 7 day course of antibiotics (including the ceftriaxone he has received here) Allergies Allergy/AdvReac Type Severity Reaction Status Date / Time amlodipine Allergy Severe HIVES/CONFUSION/SEVERE Verified 03/15/25 16:50 LEG EDEMA Home Medications Medication Instructions Recorded Confirmed Type Wheeled Walker #1 ea 03/21/21 02/17/25 Rx cholecalciferol (vitamin D3) 50 2,000 unit PO DAILY #90 caps 01/23/22 03/15/25 Rx mcg (2,000 unit) capsule acetaminophen 500 mg tablet 1,000 mg (2 x 500 mg) PO TID #90 06/20/22 03/15/25 Rx (Tylenol Extra Strength) tabs blood sugar diagnostic (OneTouch #200 ea 11/02/22 02/17/25 Rx Ultra Test strips) docusate sodium 100 mg capsule 100 mg PO DAILY 11/17/22 03/15/25 History Wheelchair (Manual) #1 ea 02/21/23 02/17/25 Rx polyethylene glycol 3350 17 17 g PO DAILY #119 grams 01/17/24 03/15/25 Rx gram/dose oral powder (Miralax) hydroxyzine HCl 25 mg tablet 25 mg PO BID PRN nausea and 02/22/24 03/15/25 Rx vomiting #12 tabs lisinopril 30 mg tablet 30 mg PO QAM #180 tabs 07/16/24 03/15/25 Rx calcium carbonate (Calcium 600) 600 mg PO BID 08/14/24 03/15/25 History tramadol 50 mg tablet 25 mg PO Q8 PRN .severe pain 08/14/24 03/15/25 History nystatin 100,000 unit/gram topical 1 applic topical BID PRN rash #60 11/24/24 03/15/25 Rx powder grams atorvastatin 40 mg tablet 40 mg PO HS #90 tabs 12/05/24 03/15/25 Rx potassium chloride 20 mEq 20 meq PO BID #180 tabs 12/22/24 03/15/25 Rx tablet,extended release blood sugar diagnostic (OneTouch #100 ea 01/01/25 02/17/25 Rx Ultra Test strips) rivaroxaban 20 mg tablet (Xarelto) 20 mg PO HS #30 tabs 01/08/25 03/15/25 Rx levothyroxine 150 mcg tablet 150 mcg PO DAILYBB #90 tabs 01/09/25 03/15/25 Rx cranberry extract 500 mg capsule 500 mg PO BIDM 02/13/25 03/15/25 History (Cranberry Concentrate) Saccharomyces boulardii 250 mg 250 mg PO BID #60 caps 02/16/25 03/15/25 Rx capsule (Florastor) amiodarone 200 mg tablet 200 mg PO DAILY #90 tabs 02/16/25 03/15/25 Rx magnesium oxide 400 mg PO BID #180 tabs 02/16/25 03/15/25 Rx zinc oxide 40 % topical ointment 1 applic topical 6XD PRN skin 02/16/25 03/15/25 Rx (Aquaphor Baby Diaper Rash) irritation #397 grams insulin glargine 100 unit/mL (3 14 unit (0.14 mL) subcut BID #15 mL 02/17/25 03/15/25 Rx mL) subcutaneous pen (Lantus Solostar U-100 Insulin) pen needle, diabetic, safety 30 #200 ea 02/17/25 02/17/25 Rx gauge x 1/3" clobetasol 0.05 % topical ointment 1 applic topical BID #60 grams 02/24/25 03/15/25 Rx loperamide 2 mg capsule 2 mg PO Q6H PRN Diarrhea #30 caps 03/06/25 03/15/25 Rx glucagon 1 mg/0.2 mL subcutaneous 1 mg subcut DIRECTED PRN severe 03/15/25 03/15/25 History auto-injector (Gvoke HypoPen hypoglycemia 2-Pack) insulin aspart U-100 100 unit/mL 0 unit subcut TIDM 03/15/25 03/15/25 History (3 mL) subcutaneous pen (Novolog FlexPen U-100 Insulin aspart) metformin 850 mg tablet 850 mg PO BIDM 03/15/25 03/15/25 History Patient History Medical History Complicated UTI (urinary tract infection) History of alcoholism no alcohol in >1 year Tubular adenoma of colon Pulmonary nodule Leah's thyroiditis Erectile dysfunction Dilated aortic root Cognitive impairment Closed head injury Renal cyst Subcapital fracture of left hip 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 Septic prepatellar bursitis (07/2020) Surgical History S/P ORIF (open reduction internal fixation) fracture Rip hip 06/2022, cannulated screws x3 History of total left hip arthroplasty 12-20-21 Left Total Hip Arthroplasty-Uncemented(Left) - Jeremy Baker DO History of shoulder surgery Left History of left knee surgery Family History Mother Cancer Grandmother (Paternal) Stroke Grandfather (Paternal) Stroke Other Myocardial infarction Denies family history of Ovarian cancer Prostate cancer Breast cancer Colorectal cancer Social History Smoking Status: Former smoker Tobacco Type: Smokeless Tobacco (Dip or Chew) Age Started Using Tobacco: 16; Age Quit Using Tobacco: 26; Second Hand Exposure: No (unable to obtain d/t patient condition.); Preferred Language: Kazakh Communication Ability: Effective Communication Ability Comment: unable to obtain d/t patient condition. Assistant Front End Manager Required: No Beliefs That Will Affect Care: None marital status: Single Current Living Situation: Alf Current Living Situation Comment: [facility] current occupational status: retired current occupation: [employer] How many Children do You have: 0 Other Information That Helps Us Care for You: No Feels Safe at Home: Yes Safety Concerns: Feels Safe At This Time Childhood Exposure to Second-Hand Smoke: Yes Diet: diabetic caffeine: Yes (iced tea ) Dental Care, Regularly: No Physical Activity Frequency: Does not Exercise Seatbelt Use: always Sunscreen Use: No Assistive Devices: Walker and Wheelchair Physical Exam Physical Exam: awake, alert, confused. NAD Abdomen soft, nontender Some blood at the urethral meatus Has gross hematuria in canister from purewick Results & Data Vital Signs (Past 12 Hours) Vital Signs Temp Pulse Resp BP Pulse Ox O2 Del Method 03/17/25 08:15 Room Air 03/17/25 07:11 36.4 C L 55 L 16 161/100 H 98 Room Air 03/17/25 00:04 Room Air 03/16/25 23:37 55 L 14 149/90 H 98 Room Air PG Care Time/CCT Total # of Minutes Spent Total Time Spent with Patient: Total time spent is greater than 50% in coordination of care (as documented) at patient's floor/unit and/or counseling patient: Coding Level of Care Code 96958 IN/OBS CONSULT LVL 3,45M Diagnoses UTI (urinary tract infection) N39.0 Hematuria R31.9
[2025-03-17 11:37] LABS: Hematocrit (blood only) 38.8 % (42.0-52.0); Hemoglobin 13.4 g/dL (14.0-18.0); Immature Granulocytes # (auto) 0.02 K/uL (0.01-0.20); Immature Granulocytes % (auto) 0.3 %; Mean Corpuscular Hemoglobin 30.7 pg (25.0-34.0); Mean Corpuscular Volume 88.8 fL (80.0-100.0); Platelet Count 212 K/uL (130-400); RDW Standard Deviation 43.2 fL (36.4-46.3); Red Blood Count 4.37 M/uL (4.70-6.10); White Blood Count 6.28 K/ul (4.8-10.8)
[2025-03-17 11:52] LABS: Alanine Aminotransferase 12.0 U/L (7-52); Albumin Globulin Ratio 1.1 (0.9-2); Albumin Level 3.4 gm/dl (3.4-5.0); Alkaline Phosphatase 76.0 U/L (34-104); Anion Gap 5.0 (3-11); Bilirubin,Total 0.6 mg/dl (0.2-1.0); Blood Urea Nitrogen 17.0 mg/dl (6-23); Calcium 8.8 mg/dl (8.6-10.3); Carbon Dioxide 29.0 mmol/L (21-32); Chloride 103.0 mmol/L (98-107); Creatinine Clr Calc Pharmacy 86.4 ml/min; Globulin 3.0 gm/dl (2.5-4.0); Glucose 256.0 mg/dl (70-99(Fasting)); Magnesium 1.8 mg/dl (1.7-2.4); Potassium 3.9 mmol/L (3.5-5.1); Sodium 137.0 mmol/L (136-145); Total Protein 6.4 gm/dl (6.0-8.3)
--- NOTE | 2025-03-17 13:37 | Hospitalist Progress Note ---
Date of Service March 17, 2025 Assessment & Plan (1) UTI (urinary tract infection): (2) Dehydration: Plan 70-year-old male with a past medical history of chronic diarrhea, type 2 diabetes mellitus, dementia, history of atrial fibrillation on anticoagulation, hyperlipidemia, ambulatory dysfunction/wheelchair dependent, presents to the hospital with hematuria, acute kidney injury: #hematuria #acute kidney injury - Negative for viral process. -IV fluids Stopped on 1229 as creatinine has improved. -Trend creatinine -Patient ordered for intravenous antibiotics, urine cultures indicate aerococcus- Appreciate infectious disease input. Likely can be discharged on Augmentin when ready. - With worsening hematuria, clots on 1230, requested urology input. Possibly due to acute infectious process, will benefit from cystoscopy postdischarge. #Type 2 diabetes mellitus -Continue patient on home sliding scale along with long-acting insulin, family member quite insistent that they continue the home regiment as he has been well- controlled on this -Hypoglycemia protocol #hypertension - restart home lisinopril #atrial fibrillation -continue amiodarone, continue anticoagulation #Hypothyroidism -Continue home levothyroxine dosing #Diarrhea - No diarrhea noted per nursing staff. -Patient is supposed to follow-up with gastroenterology in the next 30 days -Based on history, imaging possibly due to overflow incontinence -no abdominal pain. -Continue probiotic, psyllium husk. CODE STATUS reviewed with the patient's healthcare proxy at the bedside, requesting full code at this time. Admission and Anticipated Discharge Date Admission Date: March 15, 2025 Subjective Patient seen and examined. He offers no complaints at this time. He denies having any abdominal discomfort. No nausea or vomiting noted. No fevers or chills. Physical Exam Physical Exam: Gen-pt in NAD, awake and alert, Poor dentition CVS-+s1,s2, RRR, no murmurs Lungs-CTA b/l GI-+ bs, normoactive, NT, ND Ext- Right lower extremity with excoriationserythematous patches. Neuro-grossly intact, oriented only to person. Results & Data Results & Data Vital Signs (Past 12 Hours) Vital Signs Temp Pulse Resp BP Pulse Ox O2 Del Method 03/17/25 08:15 Room Air 03/17/25 07:11 36.4 C L 55 L 16 161/100 H 98 Room Air Laboratory Results 03/15/25 15:38 Urine Culture - Final Urine,Clean Catch Aerococcus sanguinicola 03/17/25 03/17/25 03/17/25 11:39 10:59 07:17 WBC 6.28 RBC 4.37 L Hgb 13.4 L Hct 38.8 L MCV 88.8 MCH 30.7 MCHC 34.5 RDW Std Deviation 43.2 RDW Coeff of Robyn 13.2 Plt Count 212 MPV 9.0 L Immature Gran % (Auto) 0.3 Neut % (Auto) 62.2 Lymph % (Auto) 24.7 Snyder % (Auto) 8.3 Eos % (Auto) 3.5 Baso % (Auto) 1.0 Neut # (Auto) 3.91 Lymph # (Auto) 1.55 Snyder # (Auto) 0.52 Eos # (Auto) 0.22 Baso # (Auto) 0.06 Immature Gran # (Auto) 0.02 Sodium 137 Potassium 3.9 Chloride 103 Carbon Dioxide 29 Anion Gap 5 BUN 17 Creatinine 0.96 Est Cr Clr Drug Dosing 86.4 eGFR 85.03 BUN/Creatinine Ratio 17.7 Glucose 256 H POC Glucose 233 H 129 H Calcium 8.8 Magnesium 1.8 Total Bilirubin 0.6 AST 13 ALT 12 Alkaline Phosphatase 76 Total Protein 6.4 Albumin 3.4 Globulin 3.0 Albumin/Globulin Ratio 1.1 03/16/25 03/16/25 19:59 16:53 WBC RBC Hgb Hct MCV MCH MCHC RDW Std Deviation RDW Coeff of Robyn Plt Count MPV Immature Gran % (Auto) Neut % (Auto) Lymph % (Auto) Snyder % (Auto) Eos % (Auto) Baso % (Auto) Neut # (Auto) Lymph # (Auto) Snyder # (Auto) Eos # (Auto) Baso # (Auto) Immature Gran # (Auto) Sodium Potassium Chloride Carbon Dioxide Anion Gap BUN Creatinine Est Cr Clr Drug Dosing eGFR BUN/Creatinine Ratio Glucose POC Glucose 95 168 H Calcium Magnesium Total Bilirubin AST ALT Alkaline Phosphatase Total Protein Albumin Globulin Albumin/Globulin Ratio PG Care Time/CCT Total # of Minutes Spent Total Time Spent with Patient: Total time spent is greater than 50% in coordination of care (as documented) at patient's floor/unit and/or counseling patient: Coding Level of Care Code 87692 SUB INP/OBS CARE 3/50MIN Diagnoses UTI (urinary tract infection) N39.0 Dehydration E86.0
[2025-03-18 07:22] LABS: Hematocrit (blood only) 40.0 % (42.0-52.0); Hemoglobin 13.8 g/dL (14.0-18.0); Immature Granulocytes # (auto) 0.01 K/uL (0.01-0.20); Immature Granulocytes % (auto) 0.2 %; Mean Corpuscular Hemoglobin 30.4 pg (25.0-34.0); Mean Corpuscular Volume 88.1 fL (80.0-100.0); Platelet Count 206 K/uL (130-400); RDW Standard Deviation 43.2 fL (36.4-46.3); Red Blood Count 4.54 M/uL (4.70-6.10); White Blood Count 6.23 K/ul (4.8-10.8)
[2025-03-18 07:45] LABS: Alanine Aminotransferase 14.0 U/L (7-52); Albumin Globulin Ratio 1.3 (0.9-2); Albumin Level 3.5 gm/dl (3.4-5.0); Alkaline Phosphatase 71.0 U/L (34-104); Anion Gap 7.0 (3-11); Bilirubin,Total 0.6 mg/dl (0.2-1.0); Blood Urea Nitrogen 16.0 mg/dl (6-23); Calcium 9.0 mg/dl (8.6-10.3); Carbon Dioxide 30.0 mmol/L (21-32); Chloride 104.0 mmol/L (98-107); Creatinine Clr Calc Pharmacy 75.4 ml/min; Globulin 2.8 gm/dl (2.5-4.0); Glucose 133.0 mg/dl (70-99(Fasting)); Magnesium 1.7 mg/dl (1.7-2.4); Potassium 3.6 mmol/L (3.5-5.1); Sodium 141.0 mmol/L (136-145); Total Protein 6.3 gm/dl (6.0-8.3)
[2025-03-18 08:22] VITALS: PULSE 63; RESP 16; TEMP 97.9; O2SAT 97
[2025-03-18] MEDS: MAGNESIUM SULFATE / D5W 1 GM/100 ML BAG IV SCH (08:48)
--- NOTE | 2025-03-18 13:11 | Discharge Summary ---
Discharge Summary Date of Service March 18, 2025 Principal Dx & Hospital Course #1 = Principal Diagnosis (1) UTI (urinary tract infection): (2) Dehydration: Plan 70-year-old male with a past medical history of chronic diarrhea, type 2 diabetes mellitus, dementia, history of atrial fibrillation on anticoagulation, hyperlipidemia, ambulatory dysfunction/wheelchair dependent, presents to the hospital with hematuria, acute kidney injury: #hematuria #acute kidney injury - Negative for viral process. -IV fluids Stopped on 1229 as creatinine has improved. -Trend creatinine, Remains stable. -Patient ordered for intravenous antibiotics, urine cultures indicate aerococcus- Appreciate infectious disease input. He will be discharged on Augmentin to finish course of treatment. - With ongoing hematuria, clots on 1230, Appreciate urology input. -Possibly due to acute infectious process, will benefit from cystoscopy postdischarge. #Type 2 diabetes mellitus -Continue patient on home sliding scale along with long-acting insulin. -Hypoglycemia protocol #hypertension - restart home lisinopril #atrial fibrillation -continue amiodarone, continue anticoagulation #Hypothyroidism -Continue home levothyroxine dosing #Diarrhea - No diarrhea noted per nursing staff. -Patient is supposed to follow-up with gastroenterology in the next 30 days -Based on history, imaging possibly due to overflow incontinence -no abdominal pain. -Continue probiotic, psyllium husk. Admission HPI Per Admitting Provider 70-year-old male with a past medical history as mentioned below presents to the hospital from long-term care facility for complaints of hematuria. History is obtained from the patient's healthcare proxy at the bedside. As per them the patient started experiencing some hematuria earlier today at the facility. Overnight he also had some elements of confusion, agitation and getting upset at jail staff. Patient has been having some chronic diarrhea for few months for which he will be seeing gastroenterology next month. The patient himself denies any chest pain, no trouble breathing, no nausea or vomiting. Appetite is okay. He has extremely poor dentition but per POA he is able to chew food normally. He denies having any abdominal discomfort. Discharge Plan Discharge Items Patient Disposition: Transfer Senior Care Fac Reason For Visit: HEMATURIA Discharge Diagnosis: UTI Hematuria Condition on Discharge: Fair Activity: Resume your previous activity Lifting: None Bathing: No limitations Exercise/Sports: None Weightbearing: Full weightbearing Non-emergency contact: Primary Care Provider Call non-emergency contact if: you have any medication questions, your symptoms worsen, your pain is not controlled and you have a fever Follow-up/Referrals: Faraz Ascencio [Primary Care Provider] - Diet: Carb Consistent or DM2 and Heart Healthy Diet Texture: Easy to Chew Addtl Attending Provider Instructions: you were diagnosed with a urinary tract infection. You also have ongoing blood in your urine, and this was reviewed with the urologist. The urology team is recommending that you follow-up with your own urologist for a cystoscopy to be performed in relation to this. Sometimes blood in the urine can cause blockage of urine, this was not found to be the case in your situation. If this were to happen you may require a Cook catheter, this was discussed with you and you did not want a Cook catheter to be placed at this time. Please have lab work performed in the next 1 week, including a basic metabolic panel to monitor your kidney function And electrolytes. Pending Studies at Discharge: No Stand-Alone Forms: My [facility] Skilled Items Patient informed of condition?: Yes DNR: No Discharge Level of Care: Skilled Communicable Disease: No Discharge Prognosis: Stable Lines: None Urinary Catheter: No Medications and DC Order Prescriptions: New Psyllium Husk [Metamucil] 4 g PO QAM 30 Days 0RF amoxicillin-pot clavulanate 875-125 mg tablet 1 tab PO Q12H Qty: 8 0RF Continued (DME) Wheeled Walker Misc See Rx Instructions .Route Qty: 1 0RF Rx Instructions: As directed. with seat if possible (DME) OneTouch Ultra Test Strip See Rx Instructions .Route Qty: 200 11RF Rx Instructions: Test blood sugars 4 time a day (DME) Wheelchair (Manual) Device See Rx Instructions .Route Qty: 1 0RF Rx Instructions: Standard wheelchair with leg rests. [id number] exam on 02/16/23. Estimated length of need: Lifetime. lisinopril 30 mg tablet 30 mg PO QAM Qty: 180 3RF nystatin 100,000 unit/gram powder 1 applic topical BID PRN (Reason: rash) Qty: 60 2RF atorvastatin 40 mg tablet 40 mg PO HS Qty: 90 1RF Xarelto 20 mg tablet 20 mg PO HS Qty: 30 11RF amiodarone 200 mg tablet 200 mg PO DAILY Qty: 90 1RF clobetasol 0.05 % ointment 1 applic topical BID Qty: 60 0RF Rx Instructions: Apply to areas of the trunk twice daily x 2 weeks as directed. loperamide 2 mg capsule 2 mg PO Q6H PRN (Reason: Diarrhea) Qty: 30 0RF docusate sodium 100 mg capsule 100 mg PO DAILY Hold Instructions: Home Medication placed on hold at Doctor's office cholecalciferol (vitamin D3) 50 mcg (2,000 unit) capsule 2,000 unit PO DAILY Qty: 90 3RF insulin glargine [Lantus Solostar U-100 Insulin] 100 unit/mL (3 mL) insulin pen 14 unit subcut BID Qty: 15 5RF (DME) pen needle, diabetic, safety 30 gauge x 1/3" needle See Rx Instructions .Route Qty: 200 11RF Rx Instructions: use for insuling injections up to five times daily magnesium oxide 400 mg magnesium tablet 400 mg PO BID Qty: 180 1RF Saccharomyces boulardii [Florastor] 250 mg capsule 250 mg PO BID Qty: 60 0RF zinc oxide [Aquaphor Baby Diaper Rash] 40 % ointment 1 applic topical 6XD PRN (Reason: skin irritation) Qty: 397 1RF (DME) OneTouch Ultra Test Strip See Rx Instructions .Route Qty: 100 5RF Rx Instructions: check blood sugar AC and HS and PRN with signs of hypo/hyper glycemia levothyroxine 150 mcg tablet 150 mcg PO DAILYBB Qty: 90 1RF acetaminophen [Tylenol Extra Strength] 500 mg Tablet 1,000 mg PO TID MDD 3 GRAMS APAP/24 HOURS Qty: 90 0RF polyethylene glycol 3350 [Miralax] 17 gram/dose powder 17 g PO DAILY Qty: 119 0RF hydroxyzine HCl 25 mg tablet 25 mg PO BID PRN (Reason: nausea and vomiting) Qty: 12 0RF Rx Instructions: monitor for drowsiness calcium carbonate [Calcium 600] 600 mg calcium (1,500 mg) Tablet 600 mg PO BID cranberry extract [Cranberry Concentrate] 500 mg Capsule 500 mg PO BIDM Rx Instructions: administer with meals metformin 850 mg tablet 850 mg PO BIDM Rx Instructions: Take with a meal, hold altogether if diarrhea occurs insulin aspart U-100 [Novolog FlexPen U-100 Insulin] 100 unit/mL (3 mL) insulin pen 0 unit subcut TIDM MDD 20 u Rx Instructions: Inject SQ TID before meals for BG <86 = 0 units, BG 87-150 = 3 units, BG 151- 190 = 4 units, BG 191-230 = 5 units, BG 231-270 = 6 units, 271-310 = 7 units, 311-350 = 8 u, 351-390 = 9 u, 391-430 = 10 u, 431-470 = 11 u and CONTACT provider. Gvoke HypoPen 2-Pack 1 mg/0.2 mL auto-injector 1 mg subcut DIRECTED PRN (Reason: severe hypoglycemia) Discontinued potassium chloride 20 mEq tablet extended release 20 meq PO BID Qty: 180 1RF tramadol 50 mg tablet 25 mg PO Q8 PRN (Reason: .severe pain) Discharge Orders: Discharge Order (Routine); Ordered 03/18/25 Ordered By: Nikky Nazario Admission Data Admit Date/Time: 03/15/25 18:35 Attending Provider: Nikky Nazario Admit Provider: Nikky Nazario Primary Care Provider: Faraz Ascencio Other Providers: Nikky Nazario; Grace Nicholas; Adilia De Anda; Ravi Santacruz; Mary Mendiola; Eloisa Arcos; Lauri Mejia; Jeremy Reveles; Amber Hayes; Tony Hawk; Yuliana Martinez; Lewis Oliva; Juliana Paredes; Prieto Philip; Ochoa Costa; Suraj Wakefield; Javier Iglesias Hospital Stay Data Consultations 03/15/25 17:02 ED Decision to Admit Stat 03/17/25 08:23 Consult Infectious Diseases Routine 03/17/25 10:19 Consult Urology Routine Pending Results Patient Have Any Pending Studies at Discharge: No Discharge Instructions Given to Patient (Per Discharging Provider) you were diagnosed with a urinary tract infection. You also have ongoing blood in your urine, and this was reviewed with the urologist. The urology team is recommending that you follow-up with your own urologist for a cystoscopy to be performed in relation to this. Sometimes blood in the urine can cause blockage of urine, this was not found to be the case in your situation. If this were to happen you may require a Cook catheter, this was discussed with you and you did not want a Cook catheter to be placed at this time. Please have lab work performed in the next 1 week, including a basic metabolic panel to monitor your kidney function And electrolytes. Total Time Total Time Spent Total Time Spent (In Minutes): greater than 45 minutes were spent in the discharge coordination and care of this patient. Coding Level of Care Code 79066 INP/OBS DISCH >30 MIN Diagnoses UTI (urinary tract infection) N39.0 Dehydration E86.0
[2025-03-18 13:50] VITALS: BP 170/117
== END 2025-03-18 14:10 | DRG 690 ==
LOC: ED 13:41 → 2W 18:35 → 3E 03-16 23:59